=== PATIENT | female | born 1970 | race Caucasian/White ===

== ENCOUNTER 2017-04-15 09:27 | Outpatient (RCR) | payer OTHER, SELFPAY ==
--- NOTE | 2017-04-16 15:51 | HP.FCE ---
HP OT Functional Capacity Eval - Task Lift Floor (Occasional 1-33% of Day): 20# Floor (Frequent 34-66% of Day): 10# Floor (Constant 67-100% of Day): N/A Floor PDL: Light Knee (Occasional 1-33% of Day): 20# Knee (Frequent 34-66% of Day): 10# Knee (Constant 67-100% of Day): N/A Knee PDL: Light Waist (Occasional 1-33% of Day): 20# Waist (Frequent 34-66% of Day): 10# Waist (Constant 67-100% of Day): N/A Waist PDL: Light Shoulder (Occasional 1-33% of Day): 20# Shoulder (Frequent 34-66% of Day): 10# Shoulder (Constant 67-100% of Day): 0# Shoulder PDL: Light Overhead (Occasional 1-33% of Day): 15# Overhead (Frequent 34-66% of Day): 8# Overhead (Constant 67-100% of Day): N/A Overhead PDL: Sedentary-Light - Work Activity/Posture Bending: Occasional Ability (1-33% of day) Comments: low occasional ability with external support Squatting: Occasional Ability (1-33% of day) Comments: low occasional ability with external support Kneeling: No Ablility (0% of day) Reaching out: Frequent Ability (34-66% of day) Reaching up: Occasional Ability (1-33% of day) Sitting: Frequent Ability (34-66% of day) Walking: Occasional Ability (1-33% of day) Comments: low occasional ability Standing: Occasional Ability (1-33% of day) Comments: low occasional ability with external support - Reference Duration Sedentary Sedentary Light Light Light Medium Medium Medium Heavy Very Heavy Heavy Occasional (0-33% of day) Frequent (34-66% of day) Constant (67-100% of day) 10 # Negligible Negligible 15 # 8 # Negligible 20 # 10# Negli. 35 # 18 # 7 # 50 # 25 # 10 # 75 # 100 # >100 # 38 # 50 # >50 # 15 # 20 # >20 # - Patient Information Height: 1.63 m Weight:: 149.685 kg Hand Dominance: right - Medical History Medical History Including Restrictions: pt states she has smoked cigarettes since the age of 13 and currently smokes 1/2 a pack a day. Pt reports that in 1998 she had a partial hysterectomy and bladder tie up. Pt states in 2003 she had neck laminectomy surgery and in 2007 she had back surgery with plate placed. Unsure of what level. pt states has had right carpal tunnel surgery in 2009. Pt states she needs a left capal tunnel surger and left hip replacement. Pt states she can not have her hip sx until she can lose some weight. - Diagnoses Diagnoses: Asthma dx 1988. Migraines dx 1999. Spinal Stenosis dx 1999. Degenerative Disc Disease dx 1999. Severe Osteoarthritis dx 1999. Bone spurs dx 1999. High blood pressure dx 2004. High cholesterol dx 2004. Diabetic dx 2004. Fibromyalgia dx 2004. Sleep Apnea dx 2007. Neuropathy dx 2009. Acid reflux dx 2009. Gastritris dx 2011. Sciatic dx 2011. Rhinitis dx 2012. Eczema dx 2012. Arrhythmia dx 2014. Hypthyroid dx 2016. Ambilical hernia dx 2016. Pulmonary hypertension dx 2016. COPD dx 2016. Kidney failure dx 2016 - Symptoms Symptoms: Joint Pain. Bilateral hip pain. Nubness/tingling in legs, feet. Spasum. limited mobility. SOB - Pain Pain: Pt reports pain is 4/10 and with activity 8/10. Pt states she is currently 4/10 with taking her pain medication. 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 Job required standing, lifing and bending. Pt states she left this job due to pain and the inability to perform her job duties safely. - Behavioral Behavioral: pt was coorperative during the assessment. - ADLS ADLS: Pt states she lives with her , son future [id number] and future step granddaughter. Home is a one story with basement where pt resides with , son and his future family is on first floor. Pt states there are 11 steps with two rails up to the porch but no rails to step into the house. Pt states her son is remodeling bathroom with a walk-in shower with seat built into it and with future grab bars. Pt states she does have to climb the 15 steps to first floor to do laundry and cooking. Pt states she does go grocery shopping only if there is a electirc chair avalible. Pt drives independently. 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 pt states she does have adaptive equipment to use for toliting (toilet wipe aide), fabrication lead, bed side comode, elevated toilet seat, sock aide, long handleled shoe horn, spone and sock aid to assist her with bathing and dressing, pt has manual wheel chair, walker, quad cane. - Physical Examination ROM: pt demo with limited left hip flex, abd and ext. limited due to pain-. All other ROM WFL Strength: pt demo grossly throughout 4/5 UB and LB strength Right Roll Scale Man Strength Average: 63.33 Right Roll Scale Man Strength Percentile: 28% Left Roll Scale Man Strength Average: 50.00 Left Roll Scale Man Strength Percentile: 17% Right Lateral Pinch Average: 10.00 Right Lateral Pinch Percentile: 25% Left Lateral Pinch Average: 10.00 Left Lateral Pinch Percentile: 25% Right Tripod Pinch Average: 6.00 Right Tripod Pinch Percentile: <10% Left Tripod Pinch Average: 7.33 Left Tripod Pinch Percentile: 10% Sensation: bilateral sensation. 2.83 all digits- demonstrating sensation in hands/digits are WNL Fine Motor: 9-hole peg test. right 21.30 sec 25%. left 21.86 sec. 50% Balance: No loss of balance was noted during the assessment. - Non Material Handling Activities Bending: pt demo the ability to bend forward three times and then 5 times. pt required external support during this activity. pt repoted pain shooting from hip down to knee. pt reported pain 8/10. low occasional ability. Squatting: pt demo the ability to squat three times and then 5 times- she was unable to complete ten times or ten times rapidly. Pt did use external support on both sides for this tasks. pt reported bilateral knee pain increase from 4/10 to 7.5/10. low occasional ability Kneeling: No ability Reaching out/up: pt demo the ability to reach out three times, ten times and ten times rapidly while standing. frequent ability. pt demo the ability to reach up three times and then 7 times. pt reported low back pain increase from 4/10- 8/10. pt was unable to reach up ten times rapidly. low occasional ability Walking: pt ambulated 570 feet within our facility. pt abulated with use of a quad cane and antalgic gait pattern. pt can ambulate on a low occasional basis. Standing: Pt demo the ability to stand for 4 min. she did utilize external support for following 2 min. pt does stand off of left LE. pt can stand on a low occasional basis. Sitting: pt demo the ability to sit for 40 min with no expressed or apparent discomfort. pt can sit on a frequent basis. Climbing Stairs: pt ascended and descended 10 steps using both hand rails and would climb with right leg first and descend with left leg down. - Dynamic Occasional Lifting Capacity Floor Lift: pt demo the ability to lift 15# comfortably and 20# maximally. Knee Lift: pt demo the ability to lift 15# comfortably and 20# maximally. Waist Lift: pt demo the ability to lift 15# comfortably and 20# maximally. Shoulder Lift: pt demo the ability to lift 15# comfortably and 20# maximally. Overhead Lift: pt demo the ability to lift 15# comfortably and 15# maximally. Carrying: pt amb. with quad cane and was unable to carry with bilateral hands.
--- NOTE | 2017-04-16 16:00 | HP.OTFCE_ITS ---
HP OT Functional Capacity Eval - Task Lift Floor (Occasional 1-33% of Day): 20# Floor (Frequent 34-66% of Day): 10# Floor (Constant 67-100% of Day): N/A Floor PDL: Light Knee (Occasional 1-33% of Day): 20# Knee (Frequent 34-66% of Day): 10# Knee (Constant 67-100% of Day): N/A Knee PDL: Light Waist (Occasional 1-33% of Day): 20# Waist (Frequent 34-66% of Day): 10# Waist (Constant 67-100% of Day): N/A Waist PDL: Light Shoulder (Occasional 1-33% of Day): 20# Shoulder (Frequent 34-66% of Day): 10# Shoulder (Constant 67-100% of Day): 0# Shoulder PDL: Light Overhead (Occasional 1-33% of Day): 15# Overhead (Frequent 34-66% of Day): 8# Overhead (Constant 67-100% of Day): N/A Overhead PDL: Sedentary-Light - Work Activity/Posture Bending: Occasional Ability (1-33% of day) Comments: low occasional ability with external support Squatting: Occasional Ability (1-33% of day) Comments: low occasional ability with external support Kneeling: No Ablility (0% of day) Reaching out: Frequent Ability (34-66% of day) Reaching up: Occasional Ability (1-33% of day) Sitting: Frequent Ability (34-66% of day) Walking: Occasional Ability (1-33% of day) Comments: low occasional ability Standing: Occasional Ability (1-33% of day) Comments: low occasional ability with external support - Reference Duration Sedentary Sedentary Light Light Light Medium Medium Medium Heavy Very Heavy Heavy Occasional (0-33% of day) Frequent (34-66% of day) Constant (67-100% of day) 10 # Negligible Negligible 15 # 8 # Negligible 20 # 10# Negli. 35 # 18 # 7 # 50 # 25 # 10 # 75 # 100 # >100 # 38 # 50 # >50 # 15 # 20 # >20 # - Patient Information Height: 1.63 m Weight:: 149.685 kg Hand Dominance: right - Medical History Medical History Including Restrictions: pt states she has smoked cigarettes since the age of 13 and currently smokes 1/2 a pack a day. Pt reports that in 1998 she had a partial hysterectomy and bladder tie up. Pt states in 2003 she had neck laminectomy surgery and in 2007 she had back surgery with plate placed. Unsure of what level. pt states has had right carpal tunnel surgery in 2009. Pt states she needs a left capal tunnel surger and left hip replacement. Pt states she can not have her hip sx until she can lose some weight. - Diagnoses Diagnoses: Asthma dx 1988. Migraines dx 1999. Spinal Stenosis dx 1999. Degenerative Disc Disease dx 1999. Severe Osteoarthritis dx 1999. Bone spurs dx 1999. High blood pressure dx 2004. High cholesterol dx 2004. Diabetic dx 2004. Fibromyalgia dx 2004. Sleep Apnea dx 2007. Neuropathy dx 2009. Acid reflux dx 2009. Gastritris dx 2011. Sciatic dx 2011. Rhinitis dx 2012. Eczema dx 2012. Arrhythmia dx 2014. Hypthyroid dx 2016. Ambilical hernia dx 2016. Pulmonary hypertension dx 2016. COPD dx 2016. Kidney failure dx 2016 - Symptoms Symptoms: Joint Pain. Bilateral hip pain. Nubness/tingling in legs, feet. Spasum. limited mobility. SOB - Pain Pain: Pt reports pain is 4/10 and with activity 8/10. Pt states she is currently 4/10 with taking her pain medication. 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 Job required standing, lifing and bending. Pt states she left this job due to pain and the inability to perform her job duties safely. - Behavioral Behavioral: pt was coorperative during the assessment. - ADLS ADLS: Pt states she lives with her , son future [id number]-pc-kik and future step granddaughter. Home is a one story with basement where pt resides with , son and his future family is on first floor. Pt states there are 11 steps with two rails up to the porch but no rails to step into the house. Pt states her son is remodeling bathroom with a walk-in shower with seat built into it and with future grab bars. Pt states she does have to climb the 15 steps to first floor to do laundry and cooking. Pt states she does go grocery shopping only if there is a electirc chair avalible. Pt drives independently. 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 pt states she does have adaptive equipment to use for toliting (toilet wipe aide), leather sorter, bed side comode, elevated toilet seat , sock aide, long handleled shoe horn, spone and sock aid to assist her with bathing and dressing, pt has manual wheel chair, walker, quad cane. - Physical Examination ROM: pt demo with limited left hip flex, abd and ext. limited due to pain-. All other ROM WFL Strength: pt demo grossly throughout 4/5 UB and LB strength Right Electrical Equipment Assembler Strength Average: 63.33 Right Electrical Equipment Assembler Strength Percentile: 28% Left Electrical Equipment Assembler Strength Average: 50.00 Left Electrical Equipment Assembler Strength Percentile: 17% Right Lateral Pinch Average: 10.00 Right Lateral Pinch Percentile: 25% Left Lateral Pinch Average: 10.00 Left Lateral Pinch Percentile: 25% Right Tripod Pinch Average: 6.00 Right Tripod Pinch Percentile: <10% Left Tripod Pinch Average: 7.33 Left Tripod Pinch Percentile: 10% Sensation: bilateral sensation. 2.83 all digits- demonstrating sensation in hands/digits are WNL Fine Motor: 9-hole peg test. right 21.30 sec 25%. left 21.86 sec. 50% Balance: No loss of balance was noted during the assessment. - Non Material Handling Activities Bending: pt demo the ability to bend forward three times and then 5 times. pt required external support during this activity. pt repoted pain shooting from hip down to knee. pt reported pain 8/10. low occasional ability. Squatting: pt demo the ability to squat three times and then 5 times- she was unable to complete ten times or ten times rapidly. Pt did use external support on both sides for this tasks. pt reported bilateral knee pain increase from 4/ 10 to 7.5/10. low occasional ability Kneeling: No ability Reaching out/up: pt demo the ability to reach out three times, ten times and ten times rapidly while standing. frequent ability. pt demo the ability to reach up three times and then 7 times. pt reported low back pain increase from 4 /10- 8/10. pt was unable to reach up ten times rapidly. low occasional ability Walking: pt ambulated 570 feet within our facility. pt abulated with use of a quad cane and antalgic gait pattern. pt can ambulate on a low occasional basis. Standing: Pt demo the ability to stand for 4 min. she did utilize external support for following 2 min. pt does stand off of left LE. pt can stand on a low occasional basis. Sitting: pt demo the ability to sit for 40 min with no expressed or apparent discomfort. pt can sit on a frequent basis. Climbing Stairs: pt ascended and descended 10 steps using both hand rails and would climb with right leg first and descend with left leg down. - Dynamic Occasional Lifting Capacity Floor Lift: pt demo the ability to lift 15# comfortably and 20# maximally. Knee Lift: pt demo the ability to lift 15# comfortably and 20# maximally. Waist Lift: pt demo the ability to lift 15# comfortably and 20# maximally. Shoulder Lift: pt demo the ability to lift 15# comfortably and 20# maximally. Overhead Lift: pt demo the ability to lift 15# comfortably and 15# maximally. Carrying: pt amb. with quad cane and was unable to carry with bilateral hands.
== END 2017-04-15 19:00 | disposition home or self-care (01) ==
LOC: OT 09:27
PROVIDERS: Family Provider Internal Medicine; PCP Internal Medicine; Visit Provider Internal Medicine
DX: R53.81 Other malaise (principal)
CPT/HCPCS: 97750

== ENCOUNTER → 2017-06-03 10:51 | Outpatient (CLI) | payer OTHER, SELFPAY ==
[2017-06-03 12:15] LABS: Anion Gap 10 (5-15); BUN 16 mg/dL (7-18); BUN/Creat Ratio 16.5 RATIO (10-20); Calcium,Total 8.5 mg/dL (8.5-10.1); Chloride 107 mmol/L (98-107); Creatinine, Serum 0.97 mg/dL (0.55-1.02); EST Glomerular Filtration Rate 65 mL/min (>60); Est Glom Filt Rate - Afr Amer 79 mL/min (>60); Glucose 153 mg/dL (74-106); Potassium 3.6 mmol/L (3.5-5.1); Sodium Level 141 mmol/L (136-145)
== END ==
PROVIDERS: Family Provider Internal Medicine; PCP Internal Medicine; Visit Provider Internal Medicine Nephrology
DX: R80.9 Proteinuria, unspecified (principal)
CPT/HCPCS: 36415; 80048; 82043; 82570

== ENCOUNTER 2017-06-20 17:06 | Emergency (ER) | payer OTHER, SELFPAY ==
[2017-06-20 17:07] VITALS: BP 154/74; PULSE 111; RESP 18; TEMP 37.2; O2SAT 98; BMI 55.7
--- NOTE | 2017-06-20 18:39 | ED.VISSUMM ---
- ER Visit Summary Date of Service: 06/20/17 Chief Complaint: Diarrhea History of Present Illness: The patient is a 46 F 3 of irritable bowel syndrome and ugt-[id number]-[id number] diabetes along with renal insufficiency. Patient states that she has had diarrhea for a week. 10 or more episodes a day. Denies any blood or melena. She has had diarrhea before but she has had never like this. She denies any recent hospitalization. She has had no exposure to C. difficile nor she ever had that before. She denies any recent antibiotics or any recent travel. Physical Examination: Appearing middle-aged female. Vital signs are stable afebrile. She does not look septic or toxic. She is in no acute distress. H EENT exam dry mucous membranes otherwise unremarkable. Neck nontender lungs clear to auscultation bilaterally. Heart regular rhythm rate about 110 no murmur. Abdomen soft nontender nondistended no organomegaly or masses. Normal bowel sounds no peritoneal signs. Moving all 4 extremities. Neurovascularly intact. Neurologically she is awake alert without focal deficits. Test Results: CBC showed a white count 11.2 normal H&H. BMP had a significant hypokalemia 2.7. BUN and creatinine of 15 and 1.21. UA showed 50-100 white cells 5-10 epithelial cells 2+ bacteria positive nitrates the urine was cloudy on gross examination and will be sent for culture and treated as UTI. Patient has not had any bowel movement the entire time in the ER so no stool culture could be sent for C. difficile. If her diarrhea continues this will need to be done. Emergency Department Course and Treatment: We treated with IV fluids. Screening labs be obtained along with C. difficile. Treatment Plan: Repeat exam she is doing very well at 2155. She will be given IV potassium and oral potassium and discharged to home. She has potassium supplement at home. She will be started on antibiotic for urinary tract infection. Disposition: Discharge Impression: Acute diarrhea of uncertain etiology Acute hypokalemia UTI with urine culture pending This note was generated with [employer] dictation software. It may contain incorrect words, spelling, and punctuation that were not noted in review of the chart prior to signing ED Disposition - Plan for ED Patient: Chief Complaint: Diarrhea Referrals: Naomi Colunga DO [Primary Care Provider] -
[2017-06-20 18:47] LABS: Mucous, Urine 0 SEEN /hpf (<or=2+)
[2017-06-20 18:51] LABS: Absolute Lymphocyte Count 4.73 X10^3/ul (0.83-4.51); Absolute Neutrophil Count 5.2 X10^3/uL (2.0-7.7); Basophil# 0.13 X10^3/uL; Basophil% 1.2 % (0-1); Eosinophil# 0.29 X10^3/uL; Eosinophils% 2.6 % (0-5); Hematocrit 41.3 % (37-47); Hemoglobin 13.3 g/dl (12.0-15.0); Lymphocyte # 4.73 X10^3/ul (4.0); Lymphocyte % 42.2 % (19-41); Mean Corp Hgb Conc 32.2 g/gl (32-36); Mean Corpuscular Hgb 27.5 pg (27.0-32.0); Mean Corpuscular Volume 85.5 fL (81-99); Mean Platelet Vol. 10.6 fl (6.2-12.0); Monocyte# 0.82 X10^3/uL; Monocyte% 7.3 % (0-10); Neutrophil # 5.22 X10^3/uL (2.7-7.7); Neutrophil % 46.5 % (47-70); Platelet Count 294 K/mm3 (150-450); RBC Distribution Width CV 14.3 % (11.6-14.6); RBC Distribution Width SD 44.6 fl (35.1-43.9); Red Blood Count 4.83 M/mm3 (4.2-5.4); White Blood Count 11.2 K/mm3 (4.4-11.0)
[2017-06-20 18:52] LABS: Differential Indicated SCAN CRITERIA MET; POSITIVE COUNT NO; POSITIVE DIFFERENTIAL NO; POSITIVE MORPHOLOGY YES
[2017-06-20 19:00] LABS: Anion Gap 10 (5-15); BUN 15 mg/dL (7-18); BUN/Creat Ratio 12.4 RATIO (10-20); Calcium,Total 8.6 mg/dL (8.5-10.1); Chloride 110 mmol/L (98-107); Creatinine, Serum 1.21 mg/dL (0.55-1.02); EST Glomerular Filtration Rate 51 mL/min (>60); Est Glom Filt Rate - Afr Amer 61 mL/min (>60); Estimated Creatinine Clearance 49.63 ml/min; Glucose 115 mg/dL (74-106); Potassium 2.7 mmol/L (3.5-5.1); Sodium Level 142 mmol/L (136-145)
[2017-06-20 19:05] VITALS: BP 117/56; PULSE 101; RESP 18; O2SAT 95
[2017-06-20] MEDS: 0.9% Normal Saline 1,000 ML 1000 ML IV (19:05)
[2017-06-20 19:10] LABS: Differential Comment SCANNED
[2017-06-20 20:04] LABS: Color, Urine Yellow (Yellow); Glucose, Dipstick Normal (Normal); Ketone-Dipstick Negative (Negative); Leukocyte Esterase-Dipstick 500 /ul (Negative); Nitrite-Dipstick Positive (Negative); Occult Blood-Urine 150 /ul (Negative); Protein-Dipstick 100 mg/dl (Negative); Specific Gravity, Urine 1.015 (1.002-1.030); Urine Bilirubin Dipstick Negative (Negative); Urine Clarity Sl. Cloudy (Clear); Urine Urobilinogen Normal (Normal)
[2017-06-20 20:54] LABS: Bacteria 2+ /hpf (None Seen); Red Blood Cells-Urine 0-5 SEEN /hpf (0-5); Squamous Epithelial Cells - UA 5-10 SEEN /hpf (5-10); White Blood Cells 50-100 SEEN /hpf (0-5)
[2017-06-20 21:11] VITALS: BP 118/64; PULSE 105; RESP 18; O2SAT 98
--- NOTE | 2017-06-20 22:28 | ED.DEP ---
ED Disposition - Plan for ED Patient: Disposition: Home or Assisted Living Chief Complaint: Diarrhea Instructions: Treating Diarrhea Prescriptions: Cephalexin [Keflex] 500 mg PO Q6 #30 cap Referrals: Naomi Colunga DO [Primary Care Provider] - 3-5 Days Additional Instructions: Plenty of fluids and rest. 10 mEq of potassium daily and have your potassium level rechecked next week. If continued diarrhea you need to follow-up your primary care physician and have a stool culture sent to ensure this is in a bacterial diarrhea infection such as Clostridium difficile. Return to ER feeling worse. Also, your Urinalysis appears to be a urinary tract infection. A urine culture will be sent. He will be started on Keflex 1 pill 4 times a day for a week to treat his infection.
[2017-06-20 23:00] VITALS: PULSE 100; RESP 18; O2SAT 95
[2017-06-21 00:22] VITALS: BP 139/84; PULSE 102; PULSE 104; RESP 12; RESP 15; O2SAT 95
== END 2017-06-21 00:35 | disposition home or self-care (01) ==
PROVIDERS: Emergency Provider Emergency Medicine; Family Provider Internal Medicine; PCP Internal Medicine
DX: R19.7 Diarrhea, unspecified (principal); E87.6 Hypokalemia; N39.0 Urinary tract infection, site not specified; E11.9 Type 2 diabetes mellitus without complications; I10 Essential (primary) hypertension; K58.9 Irritable bowel syndrome, unspecified; N28.9 Disorder of kidney and ureter, unspecified; Z90.49 Acquired absence of other specified parts of digestive tract; Z90.710 Acquired absence of both cervix and uterus; Z79.82 Long term (current) use of aspirin; Z79.84 Long term (current) use of oral hypoglycemic drugs; Z79.899 Other long term (current) drug therapy; Z72.0 Tobacco use
CPT/HCPCS: 80048; 81001; 85025; 96361; 96365; 96366; 99283; J7030; J7050; A4216

== ENCOUNTER 2017-07-07 08:53 | Day surgery (SDC) | payer OTHER, SELFPAY ==
[2017-07-07 09:20] VITALS: BP 145/86; PULSE 100; RESP 20; TEMP 36.6; O2SAT 99; BMI 57.3
[2017-07-07 09:41] LABS: Bedside Glucose 133 mg/dL (70-110)
--- NOTE | 2017-07-07 10:23 | RAD_ITS ---
CLINICAL HISTORY: Female, 47 years old. Lower back pain PROCEDURE: EPIDUROGRAM - Caudal block FLUOROSCOPY TIME (if supplied): (0:27) minutes. 2 Images. RADIATION DOSAGE (If Supplied By Facility): CTDIvol = ( ) mGy, DLP = ( ) mGycm TECHNIQUE: Successful lumbar epidural steroid injection under fluoroscopic guidance. RAD/Fluor Guidance for Spine Inj IMPRESSION: Successful lumbar epidural steroid injection under fluoroscopic guidance. Electronically Signed: Fabrizio Meade MD at 7:19 EDT Tel , Service support ,
[2017-07-07] MEDS: Bupivacaine 0.25% 30 ML Vial (10:34)
[2017-07-07] MEDS: MethylPREDNISolone Acetate 80 MG/ML Vial (10:35)
--- NOTE | 2017-07-07 10:37 | SUR.OPER ---
ISOVUE 200 -3ML & ISOVUE 300 -3ML USED FOR PROCEDURE -TB
[2017-07-07 10:44] VITALS: BP 135/64; BP 145/86; PULSE 115; RESP 16; TEMP 36.4; O2SAT 96
[2017-07-07 10:50] VITALS: BP 130/76; BP 145/86; PULSE 105; RESP 16; O2SAT 96
[2017-07-07 10:55] VITALS: BP 131/88; BP 145/86; PULSE 100; RESP 14; O2SAT 100
[2017-07-07 11:00] VITALS: BP 132/82; BP 145/86; PULSE 98; RESP 16; TEMP 36.2; O2SAT 96
--- NOTE | 2017-07-07 11:26 | OP.PCM_ITS ---
Problem List (1) DDD (degenerative disc disease), lumbosacral Status: Chronic (2) Radiculopathy of lumbosacral region Status: Chronic Report of Operation Date of Procedure: 07/07/17 Pre-Operative Diagnosis: Lumbosacral radiculopathy, lumbosacral degenerative disc disease, lumbosacral spinal stenosis Post-Operative Diagnosis: Lumbosacral radiculopathy, lumbosacral degenerative disc disease, lumbosacral spinal stenosis Surgery/Procedure Performed:: Caudal epidural steroid injection Description of Surgical Findings:: PROCEDURE: Caudal epidural steroid injection PREOPERATIVE DIAGNOSIS: Lumbosacral radiculopathy, lumbosacral degenerative disc disease, lumbosacral spinal stenosis POSTOPERATIVE DIAGNOSIS: Lumbosacral radiculopathy, lumbosacral degenerative disc disease, lumbosacral spinal stenosis ANESTHESIA: MAC COMPLICATIONS: None BLOOD LOSS: Minimal PROCEDURE IN DETAIL: History and physical today was reviewed. Risks and benefits of the procedure were explained. The patient understood, agreed to our procedure, and informed consent was obtained. IV inserted per routine protocol. The patient was taken to the operating room, placed in a prone position with a pillow positioned underneath the abdomen. Under direct physician fluoroscopy on the lateral view the caudal space was identified the skin and subcutaneous tissue were anesthetized approximately 3 cc of 1% lidocaine using a 25-gauge regular needle under direct visualization with fluoroscopy on the lateral view using a 22- gauge 3-1/2 inch spinal needle the needle was advanced via the skin through the sacral hiatus tip of the needle passed through the sacrococcygeal ligament advanced approximately S4 area after negative aspiration for blood or CSF a total of 3 cc of contrast were injected to confirm correct placement of the needle as well as cephalad spread the spread was followed to approximately L5 area after confirmation AP as well as lateral view and repeated negative aspiration a total of 15 cc of preservative-free 0.125% Marcaine with 80 mg of Depo-Medrol were injected easily. The needles were then removed intact.The patient experienced no signs or symptoms intrathecal, intravascular injection. The patient experienced no paraesthesia. The procedure was completed without any apparent difficult, any complication. The patient appeared to tolerate well. ASSESSMENT AND PLAN: This is a 47-year-old female with lumbosacral radiculopathy, lumbosacral degenerative disc disease, lumbosacral spinal stenosis status post caudal epidural steroid injection. The patient will continue his current medications. The patient will follow in approximately 2 weeks for possible repeat of the procedure if indicated.
[2017-07-07 11:38] VITALS: BP 145/86
== END 2017-07-07 11:39 | disposition home or self-care (01) ==
LOC: SDC 08:53 → AC 08:55
PROVIDERS: Family Provider Internal Medicine; PCP Internal Medicine; Visit Provider Anesthesiology Pain Medicine
PROC: 3E0S3BZ Introduction of Anesthetic Agent into Epidural Space, Percutaneous Approach (ICD-10-PCS; CPT 62282; principal; 2017-07-07 10:45)
DX: M51.17 Intervertebral disc disorders with radiculopathy, lumbosacral region (principal); M48.07 Spinal stenosis, lumbosacral region; K58.9 Irritable bowel syndrome, unspecified; E78.00 Pure hypercholesterolemia, unspecified; K21.9 Gastro-esophageal reflux disease without esophagitis; K44.9 Diaphragmatic hernia without obstruction or gangrene; Z79.899 Other long term (current) drug therapy; Z79.82 Long term (current) use of aspirin; J45.909 Unspecified asthma, uncomplicated; G25.81 Restless legs syndrome; I25.10 Atherosclerotic heart disease of native coronary artery without angina pectoris; M79.7 Fibromyalgia; G47.33 Obstructive sleep apnea (adult) (pediatric); I12.9 Hypertensive chronic kidney disease with stage 1 through stage 4 chronic kidney disease, or unspecified chronic kidney disease; N18.9 Chronic kidney disease, unspecified; M19.90 Unspecified osteoarthritis, unspecified site; F17.210 Nicotine dependence, cigarettes, uncomplicated; Z79.891 Long term (current) use of opiate analgesic; E66.9 Obesity, unspecified; Z71.3 Dietary counseling and surveillance; Z68.43 Body mass index [BMI] 50.0-59.9, adult
CPT/HCPCS: 62323; 64483; 77003; 82962; J7120

== ENCOUNTER → 2017-09-24 16:20 | Outpatient (CLI) | payer OTHER, SELFPAY ==
[2017-09-24 18:25] LABS: ALB/GLOB Ratio 0.6 RATIO (0.9-2.4); AST(SGOT) 33 U/L (15-37); Alanine Aminotransfer ALT/SGPT 42 U/L (13-56); Albumin, Serum 2.9 g/dL (3.2-5.0); Alkaline Phosphatase 78 U/L (45-117); Anion Gap 9 (5-15); BUN 16 mg/dL (7-18); BUN/Creat Ratio 14.3 RATIO (10-20); Calcium,Total 8.7 mg/dL (8.5-10.1); Chloride 107 mmol/L (98-107); Creatinine, Serum 1.12 mg/dL (0.55-1.02); EST Glomerular Filtration Rate 55 mL/min (>60); Est Glom Filt Rate - Afr Amer 67 mL/min (>60); Globulin 4.8 g/dL (2.2-4.2); Glucose 146 mg/dL (74-106); Potassium 3.6 mmol/L (3.5-5.1); Protein, Total 7.7 g/dL (6.4-8.2); Sodium Level 142 mmol/L (136-145)
== END ==
PROVIDERS: Family Provider Internal Medicine; PCP Internal Medicine; Visit Provider Internal Medicine
DX: L29.9 Pruritus, unspecified (principal)
CPT/HCPCS: 36415; 80053

== ENCOUNTER → 2017-09-26 11:29 | Outpatient (CLI) | payer OTHER, SELFPAY ==
[2017-09-26 12:36] LABS: Hemoglobin 13.2 g/dl (12.0-15.0); Mean Corp Hgb Conc 32.2 g/gl (32-36); Mean Corpuscular Hgb 27.8 pg (27.0-32.0); Mean Corpuscular Volume 86.5 fL (81-99); Mean Platelet Vol. 10.3 fl (6.2-12.0); Platelet Count 258 K/mm3 (150-450); RBC Distribution Width CV 15.2 % (11.6-14.6); RBC Distribution Width SD 48.3 fl (35.1-43.9); Red Blood Count 4.74 M/mm3 (4.2-5.4); Scan Indicated on CBC? Y/N NO; White Blood Count 7.7 K/mm3 (4.4-11.0)
[2017-09-26 13:00] LABS: Vitamin D,25 Hydroxy 38.5 ng/mL (29.95-100.01)
[2017-09-26 13:03] LABS: Protein, Urine (Random) 318.3 mg/dL (<11.9); Protein:Creat Ratio 2487 mg/g CRE (0-200)
[2017-09-26 13:05] LABS: Albumin, Serum 2.8 g/dL (3.2-5.0); BUN 14 mg/dL (7-18); BUN/Creat Ratio 13.1 RATIO (10-20); Calcium,Total 8.9 mg/dL (8.5-10.1); Chloride 108 mmol/L (98-107); Creatinine, Serum 1.07 mg/dL (0.55-1.02); EST Glomerular Filtration Rate 58 mL/min (>60); Est Glom Filt Rate - Afr Amer 70 mL/min (>60); Glucose 130 mg/dL (74-106); Phosphorus 3.5 mg/dL (2.5-4.9); Potassium 3.9 mmol/L (3.5-5.1); Sodium Level 139 mmol/L (136-145)
[2017-09-26 13:09] LABS: PTHIN 32.3 pg/mL (18.4-80.1)
== END ==
PROVIDERS: Family Provider Internal Medicine; PCP Internal Medicine; Visit Provider Internal Medicine Nephrology
DX: E55.9 Vitamin D deficiency, unspecified (principal); R80.9 Proteinuria, unspecified; N04.9 Nephrotic syndrome with unspecified morphologic changes; R31.9 Hematuria, unspecified
CPT/HCPCS: 36415; 80069; 82306; 82570; 83970; 84156; 85027

== ENCOUNTER → 2017-10-03 09:41 | Outpatient (CLI) | payer OTHER, SELFPAY ==
[2017-10-03 10:55] VITALS: PULSE 102; PULSE 103; PULSE 108; PULSE 112; PULSE 135; PULSE 137; PULSE 93; PULSE 98; O2SAT 95; O2SAT 97; O2SAT 98
--- NOTE | 2017-10-03 13:22 | WT_ITS ---
PSN 6 Minute Walk Test - 6 Minute Walk Test 6 Minute Walk Test: 6 Minute Walk Test PSN:6-Minute Walk Test Start: 10/03/17 11: 21 Freq: Status: Active Protocol: [id number].6MINW Document 10/03/17 10:55 [facility] [place] (Rec: 10/03/17 11:24 [facility] [place] [id number]) 6 Minute Walk Test Date Performed 10/03/17 Time Performed 10:55 Height 5 ft 4 in Weight: 151.953 kg Weight in Pounds 335.[address]: [place]ia Brenner Assistive device used: Cane Pre-test Oxygen Delivery Method Room Air Pulse Ox (%) 98 Pulse Rate (60-100 beats/min) 98 Dyspnea Daniel Scale (0-10) 0 Exertion Daniel Scale (6-20) 6 1st minute Oxygen Delivery Method Room Air Pulse Ox (%) 95 Pulse Rate (60-100 beats/min) 108 H Number of Rests Taken 0 2nd minute Oxygen Delivery Method Room Air Pulse Ox (%) 97 Pulse Rate (60-100 beats/min) 112 H Number of Rests Taken 0 3rd minute Oxygen Delivery Method Room Air Pulse Ox (%) 97 Pulse Rate (60-100 beats/min) 93 Number of Rests Taken 1 4th minute Oxygen Delivery Method Room Air Pulse Ox (%) 97 Pulse Rate (60-100 beats/min) 103 H Number of Rests Taken 0 5th minute Oxygen Delivery Method Room Air Pulse Ox (%) 95 Pulse Rate (60-100 beats/min) 135 H Number of Rests Taken 1 6th minute Oxygen Delivery Method Room Air Pulse Ox (%) 98 Pulse Rate (60-100 beats/min) 137 H Number of Rests Taken 1 Post-test Oxygen Delivery Method Room Air Pulse Ox (%) 98 Pulse Rate (60-100 beats/min) 102 H Dyspnea Daniel Scale (0-10) 4 Exertion Daniel Scale (6-20) 12 Full Laps Walked 8 Partial Lap, Number of Tiles Walked 34 Total Distance Walked (ft) 506 - Interpretation Interpretation: The patient was able to ambulate only 506 feet over the course of 6 minutes on room air with the assistance of a cane. The patient did require 3 breaks to complete the 6 minute walk. No significant desaturation was noted, but patient did have persistent tachycardia with a peak heart rate of 137 bpm. These findings are consistent with a cardiovascular and musculoskeletal limitation exercise tolerance. - Recommendations Recommendations: No supplemental oxygen is indicated at this time.
== END ==
PROVIDERS: Family Provider Internal Medicine; PCP Internal Medicine; Visit Provider Nurse Practitioner Acute Care
DX: J44.1 Chronic obstructive pulmonary disease with (acute) exacerbation (principal)
CPT/HCPCS: 94618

== ENCOUNTER → 2017-10-10 12:47 | Outpatient (CLI) | payer OTHER, SELFPAY | PROVIDERS: Family Provider Internal Medicine; PCP Internal Medicine; Visit Provider Internal Medicine Nephrology | DX: N39.0 Urinary tract infection, site not specified (principal) | CPT/HCPCS: 87077; 87086; 87088; 87186 ==

== ENCOUNTER 2017-10-20 09:49 | Emergency (ER) | payer OTHER, SELFPAY ==
[2017-10-20 09:50] VITALS: BP 104/45; PULSE 107; RESP 16; TEMP 36.6; O2SAT 97; BMI 58.0
--- NOTE | 2017-10-20 10:06 | CT_ITS ---
STUDY: CT ABDOMEN AND PELVIS WITH CONTRAST REASON FOR EXAM: Female, 47 years old. Nausea and chills. No bowel movements for 8 days. RADIATION DOSAGE (If Supplied By Facility): CTDIvol = ( 21.87 ) mGy, DLP = ( 1722.09 ) mGycm TECHNIQUE: Transaxial images were obtained from the dome of the diaphragm to the symphysis pubis with oral contrast. 100 ml of Isovue 300 contrast was administered. Sagittal and coronal images were reconstructed. Individualized dose optimization techniques were used for this CT. COMPARISON: Comparison is made with prior study dated November 06, 2016. FINDINGS: The visualized lung bases are unremarkable. The visualized portions of the heart are within normal limits. There is decreased attenuation of the liver consistent with steatosis. Hepatomegaly. There are surgical clips in the gallbladder fossa consistent with a prior cholecystectomy. Normal spleen. Normal pancreas. Normal bilateral adrenal glands. Normal right kidney. Normal left kidney. There is a small hiatal hernia. Normal small intestine. Normal colon. There is non-visualization of the appendix. Normal abdominal aorta. Normal inferior vena cava. Normal retroperitoneum. Normal urinary bladder. There is absence of the uterus consistent with a prior hysterectomy. Tiny air bubble in the right pararectal space. This is the site of prior incision and drainage of a right perirectal abscess. There is a small umbilical hernia containing fat. Small bilateral inguinal lymph nodes. Prior laminectomy and fusion at the L5-S1 level with disc space narrowing. CT/Abdomen/Pelvis WITH Contrast IMPRESSION: Hepatomegaly and fatty infiltration of the liver. Tiny air bubble in the right pararectal space most likely secondary to remote incision and drainage of the perirectal abscess. Electronically Signed: Matt Beckwith MD at 13:14 EDT Tel [phone], Service support ,
--- NOTE | 2017-10-20 10:09 | ED.VISSUMM ---
- ER Visit Summary Date of Service: 10/20/17 Chief Complaint: Abdominal pain History of Present Illness: The patient is a 47 F presenting with abdominal pain. She states that she has had constipation and has been unable to have a bowel movement for the past 8 days. She has nausea without vomiting. She was seen by her primary care physician who was concerned about possibility of left inguinal hernia. She was referred to Dr. Parr. Physical Examination: Vitals are stable. Patient is afebrile. Alert no acute distress. HEENT exam is unremarkable. Neck is supple. Lungs are clear and equal bilaterally. Heart is regular rate and rhythm. Abdomen is soft obese, tenderness in the left lower quadrant, no rebound or guarding Extremities are unremarkable. Skin is warm and dry. No focal neurologic deficit. Remainder of exam is unremarkable. Emergency Department Course and Treatment: Patient is given IV Zofran, morphine. CBC, chemistries unremarkable other than creatinine 1.42. Urinalysis unremarkable. CT abdomen pelvis with IV and oral contrast was obtained and shows hepatomegaly and fatty infiltration of the liver. Tiny air bubble in the right pararectal space most likely secondary to remote incision and drainage of the perirectal abscess. Findings were discussed with Dr. Eng who performed her perirectal abscess drainage. She will be treated for constipation and will follow-up in her office. Advised return to ED for worsening complaints. Disposition: Discharge home Impression: Abdominal pain, constipation This note was generated with [employer] dictation software. It may contain incorrect words, spelling, and punctuation that were not noted in review of the chart prior to signing ED Disposition - Plan for ED Patient: Chief Complaint: Abd Pain Referrals: Naomi Colunga DO [Primary Care Provider] -
[2017-10-20 10:28] LABS: Absolute Lymphocyte Count 2.39 X10^3/ul (0.83-4.51); Absolute Neutrophil Count 3.9 X10^3/uL (2.0-7.7); Basophil# 0.04 X10^3/uL; Basophil% 0.6 % (0-1); Eosinophils% 2.9 % (0-5); Hematocrit 39.2 % (37-47); Hemoglobin 12.4 g/dl (12.0-15.0); Lymphocyte # 2.39 X10^3/ul (4.0); Lymphocyte % 34.4 % (19-41); Mean Corp Hgb Conc 31.6 g/gl (32-36); Mean Corpuscular Hgb 27.3 pg (27.0-32.0); Mean Corpuscular Volume 86.2 fL (81-99); Monocyte# 0.41 X10^3/uL; Monocyte% 5.9 % (0-10); Neutrophil % 56.1 % (47-70); Platelet Count 245 K/mm3 (150-450); RBC Distribution Width CV 14.9 % (11.6-14.6); RBC Distribution Width SD 46.6 fl (35.1-43.9); Red Blood Count 4.55 M/mm3 (4.2-5.4)
[2017-10-20] MEDS: Ondansetron 4 MG/2 ML Vial IV (10:33)
[2017-10-20 10:35] LABS: POSITIVE COUNT NO; POSITIVE DIFFERENTIAL NO; POSITIVE MORPHOLOGY NO
[2017-10-20 10:43] LABS: ALB/GLOB Ratio 0.7 RATIO (0.9-2.4); AST(SGOT) 32 U/L (15-37); Alanine Aminotransfer ALT/SGPT 42 U/L (13-56); Alkaline Phosphatase 77 U/L (45-117); Anion Gap 10 (5-15); BUN 17 mg/dL (7-18); Calcium,Total 8.7 mg/dL (8.5-10.1); Chloride 104 mmol/L (98-107); Creatinine, Serum 1.42 mg/dL (0.55-1.02); EST Glomerular Filtration Rate 42 mL/min (>60); Est Glom Filt Rate - Afr Amer 51 mL/min (>60); Estimated Creatinine Clearance 41.84 ml/min; Globulin 4.4 g/dL (2.2-4.2); Glucose 161 mg/dL (74-106); Potassium 3.4 mmol/L (3.5-5.1); Protein, Total 7.4 g/dL (6.4-8.2); Sodium Level 139 mmol/L (136-145)
[2017-10-20 11:26] LABS: Mucous, Urine 0 SEEN /hpf (<or=2+)
[2017-10-20 11:29] LABS: Glucose, Dipstick Normal (Normal); Ketone-Dipstick Negative (Negative); Leukocyte Esterase-Dipstick Negative /ul (Negative); Nitrite-Dipstick Negative (Negative); Occult Blood-Urine 10 /ul (Negative); Protein-Dipstick 100 mg/dl (Negative); Urine Bilirubin Dipstick Negative (Negative); Urine Urobilinogen Normal (Normal); Urine pH 6.5 (5.0 - 8.0)
[2017-10-20 11:31] LABS: Color, Urine Yellow (Yellow); Urine Clarity Clear (Clear)
[2017-10-20 11:47] LABS: Red Blood Cells-Urine 0 SEEN /hpf (0-5); Squamous Epithelial Cells - UA 0-5 SEEN /hpf (5-10); White Blood Cells 0-5 SEEN /hpf (0-5)
[2017-10-20 11:48] LABS: Bacteria RARE /hpf (None Seen)
[2017-10-20] MEDS: morphine 8 MG/ML Syringe IV (12:33)
--- NOTE | 2017-10-20 14:09 | ED.DEP ---
ED Disposition - Plan for ED Patient: Chief Complaint: Abd Pain Instructions: ED Constipation Referrals: Naomi Colunga DO [Primary Care Provider] - Edmundo Parr MD [STAFF PHYSICIAN] - Kerrie Eng MD [STAFF PHYSICIAN] -
[2017-10-20 14:15] VITALS: BP 110/58; PULSE 60; RESP 18; O2SAT 96
[2017-10-20] MEDS: Magnesium Citrate 300 ML PO (14:20)
== END 2017-10-20 14:21 | disposition home or self-care (01) ==
PROVIDERS: Emergency Provider Emergency Medicine; Family Provider Internal Medicine; PCP Internal Medicine
DX: R10.32 Left lower quadrant pain (principal); K59.00 Constipation, unspecified; K76.0 Fatty (change of) liver, not elsewhere classified; J45.909 Unspecified asthma, uncomplicated; K21.9 Gastro-esophageal reflux disease without esophagitis; E11.9 Type 2 diabetes mellitus without complications; G43.909 Migraine, unspecified, not intractable, without status migrainosus; E03.9 Hypothyroidism, unspecified; M19.90 Unspecified osteoarthritis, unspecified site; I27.20 Pulmonary hypertension, unspecified; Z79.82 Long term (current) use of aspirin; Z79.84 Long term (current) use of oral hypoglycemic drugs; Z79.899 Other long term (current) drug therapy
CPT/HCPCS: 74177; 80053; 81001; 85025; 96374; 96375; 99283; Q9967; A4216

== ENCOUNTER → 2017-11-12 13:02 | Outpatient (CLI) | payer OTHER, SELFPAY ==
[2017-11-12 14:00] LABS: Hematocrit 39.5 % (37-47); Hemoglobin 12.3 g/dl (12.0-15.0); Mean Corp Hgb Conc 31.1 g/gl (32-36); Mean Corpuscular Hgb 27.7 pg (27.0-32.0); Mean Platelet Vol. 10.1 fl (6.2-12.0); Platelet Count 240 K/mm3 (150-450); RBC Distribution Width SD 48.1 fl (35.1-43.9); Red Blood Count 4.44 M/mm3 (4.2-5.4); White Blood Count 8.1 K/mm3 (4.4-11.0)
[2017-11-12 14:05] LABS: Scan Indicated on CBC? Y/N NO
[2017-11-12 14:06] LABS: Protein, Urine (Random) 133.6 mg/dL (<11.9); Protein:Creat Ratio 1973 mg/g CRE (0-200)
[2017-11-12 14:14] LABS: BUN 20 mg/dL (7-18); BUN/Creat Ratio 18.5 RATIO (10-20); Calcium,Total 8.8 mg/dL (8.5-10.1); Chloride 107 mmol/L (98-107); Creatinine, Serum 1.08 mg/dL (0.55-1.02); EST Glomerular Filtration Rate 58 mL/min (>60); Est Glom Filt Rate - Afr Amer 70 mL/min (>60); Glucose 175 mg/dL (74-106); Potassium 3.9 mmol/L (3.5-5.1); Sodium Level 140 mmol/L (136-145)
[2017-11-12 14:21] LABS: PTHIN 22.2 pg/mL (18.4-80.1); Vitamin D,25 Hydroxy 42.2 ng/mL (29.95-100.01)
[2017-11-12 14:23] LABS: Hemoglobin A1c 6.4 % (4.2-6.3)
== END ==
PROVIDERS: Family Provider Internal Medicine Nephrology; PCP Internal Medicine; Visit Provider Internal Medicine Nephrology
DX: E11.21 Type 2 diabetes mellitus with diabetic nephropathy (principal); E55.9 Vitamin D deficiency, unspecified; R80.9 Proteinuria, unspecified; R31.9 Hematuria, unspecified; N04.9 Nephrotic syndrome with unspecified morphologic changes
CPT/HCPCS: 36415; 80069; 82306; 82570; 83036; 83970; 84156; 85027

== ENCOUNTER → 2017-12-02 12:36 | Outpatient (CLI) | payer OTHER, SELFPAY ==
[2017-12-02 13:24] LABS: Hematocrit 41.9 % (37-47); Hemoglobin 13.1 g/dl (12.0-15.0); Mean Corp Hgb Conc 31.3 g/gl (32-36); Mean Corpuscular Hgb 27.6 pg (27.0-32.0); Mean Corpuscular Volume 88.4 fL (81-99); Mean Platelet Vol. 10.5 fl (6.2-12.0); Platelet Count 315 K/mm3 (150-450); RBC Distribution Width CV 14.3 % (11.6-14.6); RBC Distribution Width SD 46.3 fl (35.1-43.9); Red Blood Count 4.74 M/mm3 (4.2-5.4); Scan Indicated on CBC? Y/N NO
[2017-12-02 13:35] LABS: Protein, Urine (Random) 193.2 mg/dL (<11.9); Protein:Creat Ratio 2991 mg/g CRE (0-200)
[2017-12-02 13:52] LABS: Albumin, Serum 3.1 g/dL (3.2-5.0); BUN 13 mg/dL (7-18); BUN/Creat Ratio 12.6 RATIO (10-20); Chloride 104 mmol/L (98-107); Creatinine, Serum 1.03 mg/dL (0.55-1.02); EST Glomerular Filtration Rate 61 mL/min (>60); Est Glom Filt Rate - Afr Amer 73 mL/min (>60); Glucose 150 mg/dL (74-106); Phosphorus 3.2 mg/dL (2.5-4.9); Sodium Level 138 mmol/L (136-145)
[2017-12-03 09:49] LABS: PTHIN 38.7 pg/mL (18.4-80.1)
[2017-12-03 09:57] LABS: Vitamin D,25 Hydroxy 36.6 ng/mL (29.95-100.01)
== END ==
PROVIDERS: Family Provider Internal Medicine; PCP Internal Medicine; Visit Provider Internal Medicine Nephrology
DX: E55.9 Vitamin D deficiency, unspecified (principal); R80.9 Proteinuria, unspecified; N04.9 Nephrotic syndrome with unspecified morphologic changes; R31.9 Hematuria, unspecified
CPT/HCPCS: 36415; 80069; 82306; 82570; 83970; 84156; 85027

== ENCOUNTER 2017-12-05 06:09 | Emergency (ER) | payer OTHER, SELFPAY ==
[2017-12-05 06:09] VITALS: BP 161/107; PULSE 115; RESP 18; TEMP 36.7; O2SAT 97; BMI 58.3
--- NOTE | 2017-12-05 06:51 | ED.VISSUMM ---
- ER Visit Summary Date of Service: 12/05/17 Chief Complaint: Back pain History of Present Illness: The patient is a 47 F history of chronic lower back pain left hip pain for years. no new injuries. She sees pain management Dr. Almodovar. Has had injections in the past. She is on [place] 1-2 tabs at night. History of renal insufficiency per patient. Ambulates with a cane. Physical Examination: General: Alert and oriented ?3, no acute distress HEENT: Normocephalic, atraumatic. Moist mucosa membranes Neck: supple, nontender. Cardiovascular: Regular rate and rhythm, no murmurs Respiratory: Normal breath sounds, symmetric, no distress Back: Tender palpation Lumbar left. Straight leg test negative. Negative logroll left hip. Abdomen: Soft, nontender, nondistended Extremities: Nontender, no edema, pulses intact ?4 Neuro: no focal neurological deficits. Test Results: [] Emergency Department Course and Treatment: Patient with chronic symptoms. Denies any cauda equina symptoms. Patient sees pain management. Discussed subcu opiate injection of Dilaudid. Prior to discharge had itching, p.o. Benadryl was given. She will follow-up with her pain physicians for reevaluation. Treatment Plan: [] Disposition: Discharge Impression: 1. Chronic back pain 2. Chronic left hip pain This note was generated with [employer] dictation software. It may contain incorrect words, spelling, and punctuation that were not noted in review of the chart prior to signing ED Disposition - Plan for ED Patient: Disposition: Home or Assisted Living Chief Complaint: Back Diagnosis: Chronic back pain, Chronic left hip pain Instructions: ED Chronic Pain Management Referrals: Naomi Colunga DO [Primary Care Provider] - Keith Almodovar [NON-STAFF] -
[2017-12-05] MEDS: HYDROmorphone 1 MG/ML Syringe SC (07:06)
[2017-12-05] MEDS: DiphenhydrAMINE 25 MG Capsule 50 MG PO (08:10)
== END 2017-12-05 08:12 | disposition home or self-care (01) ==
PROVIDERS: Emergency Provider Emergency Medicine; Family Provider Internal Medicine; PCP Internal Medicine
DX: M54.5 Low back pain (principal); M25.552 Pain in left hip; G89.29 Other chronic pain; E11.9 Type 2 diabetes mellitus without complications; I10 Essential (primary) hypertension; G47.33 Obstructive sleep apnea (adult) (pediatric); Z79.82 Long term (current) use of aspirin; Z79.84 Long term (current) use of oral hypoglycemic drugs; Z79.899 Other long term (current) drug therapy; Z72.0 Tobacco use
CPT/HCPCS: 96372; 99283

== ENCOUNTER → 2018-01-01 10:39 | Outpatient (CLI) | payer OTHER, SELFPAY ==
--- NOTE | 2018-01-02 06:09 | PFTCOMP_ITS ---
COMPLETE PULMONARY FUNCTION TEST INTERPRETATION Brief HPI: Patient is a 47 year old female, currently under the care of [place] Brenner, who presents to [facility] for complete pulmonary function tests secondary to diagnosis of dyspnea. Respiratory therapist reports good effort and reproducible results. Interpretation: Forced expiration spirometry shows a moderate large airways obstructive ventilatory defect with an FEV1 of 64% predicted. There is no significant bronchodilator response by ATS criteria. Spirograms are of good quality and plateau slowly, indicating slowly emptying areas of the lungs. The respiratory flow volume loop shows decreased expiratory flow rates at all lung volumes consistent with airway obstruction. Lung volumes by body plethysmography show a normal total lung capacity at 4.62 L, 93% predicted. All other lung volumes are within normal limits. Diffusion capacity by carbon monoxide is decreased at 67% predicted. The airway resistance is normal. Compared to previous pulmonary function tests from 10/17/2016, there has been a significant reduction in FVC, FEV1 and TLC by 17%, 20% and 14% respectively. Impression: Irreversible moderate large airways obstructive ventilatory defect with a symmetric reduction diffusing capacity consistent with COPD. Patient has had significant worsening compared to study in 2017.
== END ==
PROVIDERS: Family Provider Internal Medicine; PCP Internal Medicine; Visit Provider Nurse Practitioner Acute Care
DX: R06.09 Other forms of dyspnea (principal)
CPT/HCPCS: 94060; 94726; 94729

== ENCOUNTER → 2018-04-16 10:22 | Outpatient (CLI) | payer OTHER, SELFPAY ==
[2018-02-05 12:54] VITALS: BMI 59.3
--- NOTE | 2018-04-16 10:27 | RAD_ITS ---
STUDY: X-RAY CHEST REASON FOR EXAM: Female, 47 years old. Drug cough, 3 weeks. TECHNIQUE: COMPARISON: None. FINDINGS: Mildly increased airspace opacities infrahilar, suggesting the possibility of a lower lobe posterior segmental infiltrate or bronchial wall thickening, subsegmental, best seen in the lateral view. Not apparent in the frontal view. No other dense focal infiltrate. No effusion or pneumothorax. Mild cardiomegaly. Normal mediastinal silhouette, lesli and pleural margins. No acute osseous or upper abdominal process. RAD/Chest PA and Lateral IMPRESSION: Bandlike opacity projecting from the inferior hilum posterior segment lower lobe, slightly overlapping the inferior vertebral bodies. Seen in the lateral view only. Suspected subsegmental infiltrate. Difficult to discern if this is on the right or the left. Electronically Signed: Edmundo Carrasco MD at 11:01 EST Tel , Service support ,
== END ==
PROVIDERS: Family Provider Internal Medicine; PCP Internal Medicine; Referring Provider Internal Medicine; Visit Provider Internal Medicine
DX: R05 Cough (principal)
CPT/HCPCS: 71046

== ENCOUNTER 2018-04-22 10:28 | Outpatient (RCR) | payer OTHER, SELFPAY ==
[2018-04-22 10:57] VITALS: BP 143/90; PULSE 123; RESP 18; BMI 60.4
--- NOTE | 2018-04-22 12:14 | HP.PCM_ITS ---
(1) Ulcer of left lower extremity with fat layer exposed Status: Chronic Current Visit: Yes Code(s): L97.922 - Non-pressure chronic ulcer of unspecified part of left lower leg with fat layer exposed (2) Type 2 diabetes mellitus Status: Chronic Current Visit: Yes Code(s): E11.9 - Type 2 diabetes mellitus without complications (3) Continuous tobacco abuse Status: Chronic Current Visit: No Code(s): Z72.0 - Tobacco use History of Present Illness Chief Complaint: Nonhealing left lower extremity ulcer. History of Wound: Ms. Zapata is a 47yo with past medical history as stated above presented due to nonhealing left lower extremity ulcer. Initially noted as a bump which subsequently opened up 5 months ago. Has been managed with antibiotic orally and topically by her primary care physician without any significant change. She typically has scabbing overread which she occasionally scratches open. She reports similar episodes in other parts of her body. She is unsure of her last A1c or overall diabetes control. She states that she just completed a course of antibiotics for pneumonia. 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) Continuous tobacco abuse (Chronic) WATTS (dyspnea on exertion) (Chronic) Obstructive sleep apnea (Chronic) Adult-onset obesity (Chronic) Pulmonary hypertension (Chronic) Stage 1 mild COPD by GOLD classification (Chronic) Surgical History: cholecystectomy, - - ERCP with stenting of common bile duct Allergies/Adverse Reactions: Allergies amlodipine Allergy (Verified 02/05/18 07:15) severe edema atenolol Allergy (Verified 02/05/18 07:15) Swelling ciprofloxacin [From Cipro] Allergy (Verified 02/05/18 07:15) Itching ciprofloxacin HCl [From Cipro] Allergy (Verified 02/05/18 07:15) Itching estradiol [From Estrace] Allergy (Verified 02/05/18 07:15) Swelling meloxicam Allergy (Verified 02/05/18 07:15) Itching niacin Allergy (Verified 02/05/18 07:15) Itching Home Medications: Ambulatory Orders Medication Instructions Recorded Albuterol Aerosols [Ventolin 2.5 mg INHALATION Q4H PRN PRN 05/03/15 Aerosols] Losartan Potassium [Cozaar] 100 mg PO BID 05/03/15 Omeprazole [Prilosec] 40 mg PO BID 05/03/15 Imipramine HCl [Tofranil] 50 mg PO QHS 05/07/16 Cholecalciferol (Vitamin D3) 6,000 unit PO DAILY 08/31/16 [Vitamin D3] Levothyroxine [Synthroid] 50 mcg PO DAILY 08/31/16 Loratadine [Claritin] 10 mg PO DAILY 08/31/16 Multivit,Calc,Mins/Iron/Folic 1 tab PO DAILY 08/31/16 [Women's Daily Formula [place]] Tiotropium [place] [Spiriva 18 MCG] 1 puff INHALATION DAILY #1 inhaler 09/01/16 Aspirin [Aspir-Low] 81 mg PO DAILY 09/17/16 Magnesium 250 mg PO BID 09/17/16 Cyclobenzaprine [Flexeril] 10 mg PO BID PRN PRN 04/03/17 Diclofenac Sodium [Voltaren] 1 applic TP BID 04/03/17 Diltiazem HCl [Diltiazem 12Hr ER] 120 mg PO QHS 04/03/17 Duloxetine HCl 60 mg PO QHS 04/03/17 Hydrocodone/Acetaminophen 1 tab PO BID 04/03/17 [Hydrocodone-Acetamin 5-325 mg] Diltiazem HCl [Cartia Xt] 240 mg PO DAILY 07/07/17 albuterol sulfate HFA 90 2 puff INHALATION Q4H PRN PRN #18 g 02/05/18 mcg/actuation aerosol inhaler fluticasone 50 mcg/actuation nasal 2 spray INTRANASAL DAILY #16 g 02/05/18 spray,suspension glycopyrrolate 9 mcg-formoterol 2 puff INHALATION QAM AND QPM #1 02/05/18 4.8 mcg HFA aerosol inhaler inh insulin degludec (U-100) 100 9 unit SC QHS ml 02/05/18 unit/mL (3 mL) subcutaneous pen Smoking Status: Current every day smoker Review of Systems Constitutional: Denies: Anorexia, Chills, Fever Eyes: Denies: Blurred vision, Pain HEENT: Denies: Difficulty Swallowing Cardiovascular: Denies: Chest Pain Respiratory: Denies: Hemoptysis Gastrointestinal: Denies: Abdominal Pain, Hematemesis, Vomiting Skin: Denies: Jaundice - Physical Exam Vital Signs Pulse Resp BP 123 H 18 143/90 H 04/22/18 10:57 04/22/18 10:57 04/22/18 10:57 General: Alert, Oriented x3, Cooperative, No apparent distress HEENT: Atraumatic Oral: Moist Mucosa Neck: Supple Lungs: Normal air movement Extremities: No cyanosis, Edema Skin: Ulcer/ Wound Wound Measurements and Assessment WC - Nurse 1 - General Ulcer Measurement Start: 04/22/18 10:57 Freq: Status: Active Protocol: Activity Type Activity Date Activity User E-Sign Co-Sign Detail Recorded Client Recorded Date Recorded By Document 04/22/18 10:57 [id number] 04/22/18 11:08 04/22/18 10:57 Wound Center Nurse 1 [Ulcer Assessment] #1 LEFT LATERAL CALF -Combined with other wound No -Current Size (cm) - Length 0.4 -Current Size (cm) - Width 0.4 -Current Size (cm) - Depth 0.2 -Total Square Cm 0.16 -Date of Last Picture (Recall this 04/22/18 field) -Photo Taken Yes -Epithelialization None Present -Tunneling No -Undermining/Tunneling No -Circular Undermining No -Exudate Amt Medium -Exudate Type Yellow/Green -Granulation Amt Large (67-100%) -Granulation Quality [place] -Slough/Fibrin Yes -Necrosis Amt Medium (34-66%) -Necrotic Tissue Type Adherent Slough -Structure Exposed None/Limited to Skin Breakdown -Texture (Anna Marie-wound Skin Appearance) No Abnormality Assessed -Moisture (Anna Marie-wound Skin Appearance No Abnormality ) Assessed -Color (Anna Marie-wound Skin Appearance) No Abnormality Assessed -Temperature (Anna Marie-wound Skin No Abnormality Appearance) (Pt Warm) -Tenderness on Palpation (Anna Marie-wound Yes Skin Appearance) -Ulcer Cleansing Rinsed/ Irrigated with Saline -Foul Odor after Cleansing No -Anesthetic Used 4% Lidocaine Solution [Edema Assessment] -Lower Limb Edema Present No -Right Calf (cm) 44 -Right Ankle (cm) 23.7 -Left Calf (cm) 43.8 -Left Ankle (cm) 25 WC - Nurse 2 - General Ulcer CM Notes Start: 04/22/18 10:57 Freq: Status: Active Protocol: Activity Type Activity Date Activity User E-Sign Co-Sign Detail Recorded Client Recorded Date Recorded By Document 04/22/18 11:30 MW [id number] 04/22/18 11:40 MW 04/22/18 11:30 Wound Center Nurse 2 [Procedure/Treatment] #1 LEFT LATERAL CALF -Time 11:31 -Correct Patient Yes -Correct Side, Site, Position Yes -Correct Procedure Yes -Procedure Performed Yes -Type of Procedure Debridement -Clinical Debridement Subcutaneous -Post Debridement Size (cm) - Length 0.4 -Post Debridement Size (cm) - Width 0.5 -Post Debridement Size (cm) - Depth 0.3 -Total Square Cm 0.20 -Wound/Ulcer Outcome Not Healed -Ulcer Cleansing Rinsed/ Irrigated with Saline -Foul Odor after Cleansing No -Bioengineered Tissue No -Bleeding Controlled with Pressure -Offloading No -Treatment Response Procedure Tolerated Well [See Physician Procedure note for Specifics] Pain Scale: 0-10 Numeric [Pain] -Is Patient Pain Free? Yes Musculoskeletal: No Muscle Wasting Neurological: Cranial nerves II-XII grossly intact Psych/Mental Status: Normal Affect Debridement Note Post-Debridement Measurements/Treatment - Nurse 2 - General Ulcer CM Notes Start: 04/22/18 10:57 Freq: Status: Active Protocol: Activity Type Activity Date Activity User E-Sign Co-Sign Detail Recorded Client Recorded Date Recorded By Document 04/22/18 11:30 MW [id number] 04/22/18 11:40 MW 04/22/18 11:30 Wound Center Nurse 2 #1 LEFT LATERAL CALF -Time 11:31 -Correct Patient Yes -Correct Side, Site, Position Yes -Correct Procedure Yes -Procedure Performed Yes -Type of Procedure Debridement -Clinical Debridement Subcutaneous -Post Debridement Size (cm) - Length 0.4 -Post Debridement Size (cm) - Width 0.5 -Post Debridement Size (cm) - Depth 0.3 -Total Square Cm 0.20 -Wound/Ulcer Outcome Not Healed -Ulcer Cleansing Rinsed/ Irrigated with Saline -Foul Odor after Cleansing No -Bioengineered Tissue No -Bleeding Controlled with Pressure -Offloading No -Treatment Response Procedure Tolerated Well Pain Scale: 0-10 Numeric Is Patient Pain Free? Yes Wound debrided: Left lower extremity Wound Grade/Stage: Stage II Type of Debridement: Excisional debridement Anesthesia Used: 4% Lidocaine Solution Depth: Down to and including healthy tissue, in the subcutaneous layer Percentage of wound debrided: 100 Instrument Used: 3mm curette Tissue Removed: Slough and devitalized tissue Severity: Fat Layer Exposed Amount of bleeding with debridement: Mild Bleeding Controlled with: Pressure Patient tolerated procedure well Assessment/Plan Active Problems (Last Reviewed 02/05/18 @ 13:11 by [place] Brenner, PADMA-C) Ulcer of left lower extremity with fat layer exposed (Chronic) Type 2 diabetes mellitus (Chronic) Assessment: Nonhealing left lower extremity ulcer with fat layer exposed. Diabetes mellitus type 2 ? Controlled. Tobacco abuse. Morbid obesity. Bilateral lower extremity edema. Plan: Debridement done as documented above. Procedure was well-tolerated. Promogran with Adaptic over top. Change daily. Will request records from PCP. Double layer Tubigrip for edema management. Advised to elevate lower extremities when seated in bed. Increased protein intake recommended. Optimal blood sugar control also recommended. She was advised to follow-up with her PCP in this regard. All her questions were answered and she was asked to call any further questions or concerns. Follow-up in 1 week. This note was generated with [employer] software. It may contain incorrect words, spelling, and punctuation that were not noted in checking the note before signing.
--- OUTSIDE RECORDS SUMMARY | 2018-06-27 05:39 | XMS RPT_ITS | Continuity of Care Document ---
:1970 Author Organization [facility] Address [address] [place] [address] Phone Care Team Providers Name Role Phone Naomi Colunga DO Unavailable Edmundo Parr MD Unavailable Tanphaichitr - Crum, Dre Unavailable Edy Galan DO Unavailable [facility] Unavailable ARLEN Franklin Unavailable Unavailable Reji Jorge Unavailable Unavailable Long Winsome MCKINLEY Unavailable Unavailable Unavailable Unavailable Problems Name Dates Details Abnormal lung sounds (R09.89, 786.7) Status: Active Abnormal urine odor (R82.90, 791.9) Status: Active Acute gastritis without hemorrhage, unspecified gastritis type (K29.00, 535.00) Comments: has upper GI sched for tomorrowEGD 05/25 Status: Active Acute swimmer's ear of right side (H60.331, 380.12) Status: Active 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, 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) Comments: scope 05/25 to be survellainced q 5yr Status: Active Adult hypothyroidism (E03.9, 244.9) Status: Active Arrhythmia (I49.9, 427.9) Status: Active Arthritis (M19.90, 716.90) Status: Active Asthma (J45.909, 493.90) Status: Active BMI 50.0-59.9, adult (Z68.43, V85.43) Status: Active BMI 50.0-59.9, adult (Z68.43, V85.43) Status: Active BMI 60.0-69.9, adult (Z68.44, V85.44) Status: Active Cellulitis (L03.90, 682.9) Status: Active Chronic asthma without complication, unspecified asthma severity, unspecified whether persistent (J45.909, 493.90) Status: Active Chronic obstructive asthma with acute exacerbation (Renamed from Chronic obstructive asthma with exacerbation) (J44.1, 493.22) Status: Active Controlled type 2 diabetes mellitus without complication (E11.9, 250.00) Status: Active Cough (R05, 786.2) Status: Active Current smoker (F17.200, 305.1) Status: Active Diabetes typeII,controlled, renal comp (250.40) Comments: on difleconac nsaid and i think hi risk for kidney injury so ddint add --- can see what Dr Pak thinks-- her controlled oa pain is very impt to her Status: Active Dysuria (R30.0, 788.1) Status: Active Edema extremities (R60.0, 782.3) Status: Active Emotional disorder (F99, V40.9) Status: Active Epigastric pain (R10.13, 789.06) Comments: h/o gb and stent in CBD - stent removed yrs agothis pain really started way before the insulin use now just progressing Status: Active Esophagitis (K20.9, 530.10) Comments: EGD 05/25 Status: Active Fatty liver (K76.0, 571.8) Status: Active Fever and chills (R50.9, 780.60) Status: Active Fibromyalgia (M79.7, 729.1) Status: Active Flu-like symptoms (R68.89, 780.99) Status: Active Folliculitis (L73.9, 704.8) Comments: diffuse under R axilla and both breast Status: Active Glomerulonephritis, IgA (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, 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) Comments: Sees DR Larson Status: Active Hematuria (R31.9, 599.70) Comments: just juan francisco for blood Status: Active History of abnormal mammogram (Z87.898, V15.89) Status: Active History of sun exposure, severe (Z91.89, V15.89) Status: Active Hyperglycemia (R73.9, 790.29) Status: Active Hyperlipidemia, mild (E78.5, 272.4) Status: Active Hypertension (I10, 401.9) Comments: on CCB now and controlled -- good for pulm htn-- cant use BB for heart rate elevation bc of asthmauncontrolled Status: Active Itch of skin (L29.9, 698.9) Status: Active Kidney disease (N28.9, 593.9) Status: Active Left groin hernia (K40.90, 550.90) Status: Active Leg edema (R60.0, 782.3) Comments: she is taking diuretic now --elevating Status: Active Leg sore (L98.9, 709.9) Comments: 5 mo h/o Status: Active Mild intermittent asthma without complication (J45.20, 493.90) Status: Active Nausea (R11.0, 787.02) Status: Active Need for prophylactic vaccination and inoculation against influenza (Renamed from Need for immunization against influenza) (Z23, V04.81) Status: Active Noncompliance with medications (Z91.14, V15.81) Status: Active Nutritional counseling (Z71.3, V65.3) Status: Active Nutritional counseling (Z71.3, V65.3) Status: Active NOY on CPAP (G47.33, 327.23) Comments: doesnt wear cpap-- getting eval for teeth extraction and unable to wear mask right now Status: Active Osteoarthritis, chronic (M19.90, 715.90) Comments: seeing hai and doing PT in pool and injection soon Status: Active Osteoarthritis, chronic (M19.90, 715.90) Comments: needs hip replacement but told needs to lose wt first - doing why weight program and pool exercises now - lost 10# so far Status: Active Pain in both hands (M79.641, 729.5) Status: Active Pneumococcal vaccination given (Z23, V06.6) Status: Active Pregnancies () Comments: 2. Status: Active Proteinuria, unspecified type (R80.9, 791.0) Comments: dr larson stopped chorothiodone and pot -- adn started aldactonne but pt had to stop it bc of severe diarrhea-- she sees him soon will lst him manage Status: Active Pulmonary hypertension (I27.20, 416.8) Comments: Eddie manages Status: Active Pulmonary hypertension, mild (I27.20, 416.8) Status: Active Pustules determined by examination (L08.9, 686.9) Comments: cultures were staph only Status: Active Rash (R21, 782.1) Status: Active Screening mammogram, encounter for (Z12.31, V76.12) Status: Active Sinus tachycardia (R00.0, 427.89) Status: Active Sinusitis, acute (J01.90, 461.9) Status: Active Skin sore (L98.9, 709.9) Comments: abdomen Status: Active Smoker (F17.200, 305.1) Comments: discussed quitting-- tapering and down to 1/2 pack Status: Active Stress reaction (F43.0, 308.9) Status: Active Stress reaction (F43.0, 308.9) Status: Active Tachycardia (R00.0, 785.0) Status: Active Thyroid nodule (E04.1, 241.0) Status: Active Uncontrolled type 2 diabetes mellitus with stage 1 chronic kidney disease, 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 old doc in [place] , on [facility] , Status: Active Urinary incontinence in female (R32, 788.30) Comments: multifactorial -- stress / obestiy/ mobility/ rx lasix/ Status: Active UTI (urinary tract infection) (N39.0, 599.0) Status: Active Vitamin D deficiency (E55.9, 268.9) Status: Active Walking pneumonia (J18.9, 486) Status: Active Medications Name Dates Details Aspirin Adult Low Dose 81 MG Oral Tablet Delayed Release 1 (one) Tablet DR qd for 30 days Refills: 0 Ordered:24-Jan-2016 Jase Colunga DO, DO, Kathleen Start : 24-Jan-2016 Active Bactrim DS 800-160 MG Oral Tablet 1 (one) Tablet twice a day for 7 days Quantity: 14 {Tablet} Refills: 0 Ordered:15-Apr-2018 Jase Colunga DO, DO, Kathleen Start : 15-Apr-2018 Active Bevespi Aerosphere 9-4.8 MCG/ACT Inhalation Aerosol uad (9-4.8 MCG/ACT) Active Cartia XT 240 MG Oral Capsule Extended Release 24 Hour 1 (one) Capsule qd for 0 days Quantity: 30 {Capsule} Refills: 3 Ordered:24-Oct-2017 Jase Colunga DO, DO, Kathleen Start : 24-Oct-2017 Active Cephalexin 500 MG Oral Tablet 1 (one) Tablet q6hr for 7 days Quantity: 28 {Tablet} Refills: 0 Ordered:15-Apr-2018 Jase Colunga DO, DO, Kathleen Start : 15-Apr-2018 Active Claritin 10 MG Oral Capsule 1 (one) Capsule Capsule daily for 0 days Quantity: 30 {Capsule} Refills: 0 Ordered:12-Aug-2016 Reji Jorge Start : 07-Aug-2016 Active Cyclobenzaprine HCl 10 MG Oral Tablet 1 (one) Tablet qd for 30 days Refills: 0 Ordered:24-Jan-2016 Jase Colunga DO, DO, Kathleen Start : 24-Jan-2016 Active DULoxetine HCl 60 MG Oral Capsule Delayed Release Particles 1 (one) Capsule qd for 0 days Quantity: 30 {Capsule} Refills: 2 Ordered:12-Sep-2017 Jase Colunga DO, DO, Kathleen Start : 12-Sep-2017 Active HydroCHLOROthiazide 25 MG Oral Tablet 1 (one) Tablet Tablet qd for 0 days Quantity: 30 {Tablet} Refills: 2 Ordered:16-Oct-2017 Winsome Jaramillo LPN Start : 16-Oct-2017 Active Imipramine HCl 50 MG Oral Tablet 1 (one) Tablet qd for 90 days Quantity: 90 {Tablet} Refills: 0 Ordered:12-Sep-2017 Jase Colunga DO, DO, Kathleen Start : 12-Sep-2017 Active Losartan Potassium 100 MG Oral Tablet 2 (two) Tablet qd for 30 days Quantity: 60 {Tablet} Refills: 3 Ordered:17-Oct-2017 Jase Colunga DO, DO, Kathleen Start : 17-Oct-2017 Active [place] 5-325 MG Oral Tablet 1 bid prn pain (5-325 MG) Active ProAir HFA 108 (90 Base) MCG/ACT Inhalation Aerosol Solution 2 (two) Puff Puff tid prn for 0 days Quantity: 1 {Inhaler} Refills: 0 Ordered:07-Aug-2016 Luisito Reji Start : 07-Aug-2016 Active Synthroid 50 MCG Oral Tablet 1 (one) Tablet qd for 30 days Quantity: 30 {Tablet} Refills: 3 Ordered:17-Dec-2017 Jase Colunga DO, DO, Kathleen Start : 17-Dec-2017 Active Tradjenta 5 MG Oral Tablet 1 (one) Tablet qd for 90 days Quantity: 90 {Tablet} Refills: 1 Ordered:13-Jan-2017 Jase Colunga DO, DO, Kathleen Start : 13-Jan-2017 Active Tradjenta 5 MG Oral Tablet 1 (one) Tablet qd for 90 days Quantity: 90 {Tablet} Refills: 1 Ordered:13-Jan-2017 Jase Colunga DO, DO, Kathleen Start : 13-Jan-2017 Active Tresiba FlexTouch 100 UNIT/ML Subcutaneous Solution Pen-injector 9 Unit Unit qam for 0 days Quantity: 1 {Box} Refills: 0 Ordered:16-Dec-2017 Won BLACKWELL Meryl Start : 16-Dec-2017 Active Voltaren 1 % Transdermal Gel 1 qd (1 %) Active Advair Diskus 250-50 MCG/DOSE Inhalation Aerosol Powder Breath Activated 1 (one) Aero Pow Br Act bid for 30 days Quantity: 1 {Box} Refills: 0 Ordered:25-Apr-2016 Jase Colunga DO, DO, Kathleen Start : 25-Apr-2016 End : 25-May-2016 Inactive Albuterol Sulfate (2.5 MG/3ML) 0.083% Inhalation Nebulization Solution 1 (one) Nebulized Soln prn for 30 days Refills: 0 Ordered:20-Mar-2016 Jase Colunga DO, DO, Kathleen Start : 24-Jan-2016 End : 23-Feb-2016 Inactive Aldactone 25 MG Oral Tablet 1 qd (25 MG) End : 24-Sep-2017 Inactive Amoxicillin-Pot Clavulanate 875-125 MG Oral Tablet 1 (one) Tablet Tablet bid for 0 days Quantity: 20 {Tablet} Refills: 0 Ordered:22-Aug-2016 Hafsa Franklin LPN Start : 31-May-2016 End : 22-Aug-2016 Inactive Augmentin 875-125 MG Oral Tablet 1 (one) Tablet Tablet bid for 14 days Quantity: 28 {QS} Refills: 0 Ordered:07-Aug-2016 Reji Jorge Start : 07-Aug-2016 End : 21-Aug-2016 Inactive Bactrim DS 800-160 MG Oral Tablet 1 (one) Tablet Tablet bid for 0 days Quantity: 14 {Tablet} Refills: 0 Ordered:25-Apr-2016 Hafsa Franklin LPN Start : 27-Mar-2016 End : 25-Apr-2016 Inactive Bactrim DS 800-160 MG Oral Tablet 1 (one) Tablet bid for 30 days Refills: 0 Ordered:20-Mar-2016 Hafsa Franklin LPN Start : 24-Jan-2016 End : 20-Mar-2016 Inactive Cephalexin 500 MG Oral Capsule 1 (one) Capsule qid for 3 days Refills: 0 Ordered:20-Mar-2016 Hafsa Franklin LPN Start : 24-Jan-2016 End : 20-Mar-2016 Inactive Cheratussin AC 100-10 MG/5ML Oral Syrup 1-2 Teaspoon Teaspoon qhs prn for 0 days Quantity: 6 {Ounce} Refills: 0 Ordered:22-Aug-2016 Hafsa Franklin LPN Start : 07-Aug-2016 End : 22-Aug-2016 Inactive Diclofenac Sodium 75 MG Oral Tablet Delayed Release 1 (one) Tablet DR qd for 30 days Refills: 0 Ordered:05-Dec-2016 Hafsa Franklin LPN Start : 24-Jan-2016 End : 05-Dec-2016 Inactive Doxycycline Hyclate 100 MG Oral Capsule 1 (one) Capsule bid for 0 days Quantity: 20 {Capsule} Refills: 0 Ordered:15-Apr-2018 Hafsa Franklin LPN Start : 06-Feb-2018 End : 15-Apr-2018 Inactive Medrol 4 MG Oral Tablet Therapy Pack 1 qd (4 MG) Inactive MetFORMIN HCl 500 MG Oral Tablet 1 (one) Tablet bid for 10 days Quantity: 20 {Tablet} Refills: 0 Ordered:24-Jan-2017 Reji Jorge Start : 24-Jan-2017 End : 03-Feb-2017 Inactive Omeprazole 40 MG Oral Capsule Delayed Release 1 (one) Capsule DR bid for 90 days Quantity: 180 {Capsule} Refills: 0 Ordered:29-Dec-2017 Jase Colunga DO, DO, Kathleen Start : 29-Dec-2017 End : 29-Mar-2018 Inactive Promethazine HCl 25 MG Oral Tablet 1 (one) Tablet q8hrs prn nausea for 0 days Quantity: 15 {Tablet} Refills: 0 Ordered:25-Jun-2017 Hafsa Franklin LPN Start : 17-Jun-2017 End : 25-Jun-2017 Inactive Proventil HFA 108 (90 Base) MCG/ACT Inhalation Aerosol Solution 2 (two) puffs prn for 30 days Refills: 0 Ordered:20-Mar-2016 Jase Colunga DO, DO, Kathleen Start : 24-Jan-2016 End : 23-Feb-2016 Inactive ROPINIRole HCl 3 MG Oral Tablet 1 (one) Tablet qd for 90 days Quantity: 90 {Tablet} Refills: 1 Ordered:25-Jun-2017 Hafsa Franklin LPN Start : 13-Jan-2017 End : 25-Jun-2017 Inactive Spiriva HandiHaler 18 MCG Inhalation Capsule 1 Capsule qd for 0 days Quantity: 1 {Inhaler} Refills: 0 Ordered:06-Feb-2018 Reji Jorge Start : 05-Sep-2016 End : 06-Feb-2018 Inactive Topamax 100 MG Oral Tablet 1 (one) Tablet tid for 90 days Quantity: 180 {Tablet} Refills: 0 Ordered:25-Jun-2017 Jase Colunga DO, DO, Kathleen Start : 25-Jun-2017 End : 23-Sep-2017 Inactive TraMADol HCl 50 MG Oral Tablet 1 (one) Tablet Tablet qhs for 0 days Quantity: 30 {Tablet} Refills: 0 Ordered:05-Dec-2016 Hafsa Franklin LPN Start : 07-Aug-2016 End : 05-Dec-2016 Inactive Triamcinolone Acetonide 0.1 % External Cream 1 (one) Cream prn for 30 days Refills: 0 Ordered:20-Mar-2016 Jase Colunga DO, DO, Kathleen Start : 24-Jan-2016 End : 23-Feb-2016 Inactive AmLODIPine Besylate 10 MG Oral Tablet 1 (one) Tablet qd for 90 days Quantity: 90 {Tablet} Refills: 3 Ordered:25-Apr-2016 Jase Colunga DO, DO, Kathleen Start : 25-Apr-2016 End : 25-Apr-2016 Discontinued Comments:tons of edemaand recurrent celluliits Chlorthalidone 25 MG Oral Tablet 1 (one) Tablet qd for 30 days Refills: 0 Ordered:17-Jun-2017 Renaldo Pimentel Start : 24-Jan-2016 End : 17-Jun-2017 Discontinued Cipro HC 0.2-1 % Otic Suspension 3-4 drops R ear drops R ear bid for 10 days for 0 days Quantity: 1 {Bottle} Refills: 0 Ordered:17-Jun-2017 Renaldo Pimentel Start : 26-Mar-2017 End : 17-Jun-2017 Discontinued DULoxetine HCl 30 MG Oral Capsule Delayed Release Particles 1 (one) Capsule Capsule qd for 0 days Quantity: 10 {Capsule} Refills: 0 Ordered:17-Jun-2017 Renaldo Pimentel Start : 05-Dec-2016 End : 17-Jun-2017 Discontinued Furosemide 40 MG Oral Tablet 1 (one) Tablet qd for 90 days Quantity: 90 {Tablet} Refills: 0 Ordered:17-Jun-2017 Renaldo Pimentel Start : 04-Apr-2016 End : 17-Jun-2017 Discontinued Potassium Chloride ER 20 MEQ Oral Tablet Extended Release 1 (one) Tablet ER qd for 30 days Quantity: 60 {Tablet} Refills: 1 Ordered:17-Jun-2017 Renaldo Pimentel Start : 05-Dec-2016 End : 17-Jun-2017 Discontinued Simvastatin 20 MG Oral Tablet 1 (one) Tablet Tablet qd for 0 days Quantity: 30 {Tablet} Refills: 2 Ordered:17-Jun-2017 Renaldo Pimentel Start : 31-May-2016 End : 17-Jun-2017 Discontinued Allergies and Adverse Reactions Name Dates Details Atenolol *BETA BLOCKERS* (Allergy) Reaction: Shortness of breath, Edema Status: Active Cipro *FLUOROQUINOLONES* (Allergy) Status: Active Comments: itching Niacin *VITAMINS* (Allergy) Reaction: Vomiting Status: Active Simvastatin *ANTIHYPERLIPIDEMICS* Reaction: Edema (Allergy) Status: Active Past Medical History Name Dates Details Abnormal TSH (R79.89, 790.6) Status: Inactive as of 05-Dec-2016 Abscess of buttock (L02.31, 682.5) Status: Inactive as of 18-Dec-2016 Acute epigastric pain (R10.13, 789.06) Comments: suspect gastritis --- thats what EGD showed in 2014 adn didnt do it Status: Inactive as of 25-Apr-2016 Allergic rhinitis (J30.9, 477.9) Status: Inactive as of 05-Dec-2016 Body mass index 45.0-49.9, adult (Z68.42, V85.42) Status: Inactive as of 05-Dec-2016 Cellulitis of left lower extremity (L03.116, 682.6) Status: Inactive as of 25-Apr-2016 Chest pain, atypical (R07.89, 786.59) Status: Inactive as of 05-Dec-2016 Dehydration (E86.0, 276.51) Comments: GI related, family has as well Status: Inactive as of 25-Jun-2017 Edema extremities (R60.0, 782.3) Comments: noy and wears cpap, obesity Status: Inactive as of 05-Dec-2016 Hematuria (R31.9, 599.70) Comments: chronic Status: Inactive as of 05-Dec-2016 Hemorrhagic cystitis (N30.91, 595.9) Status: Inactive as of 05-Dec-2016 History of MRSA infection (Z86.14, V12.04) Status: Inactive as of 05-Dec-2016 Other proteinuria (R80.8, 791.0) Comments: on an ARB -- discused sugar control and bp control, wt loss Status: Inactive as of 05-Dec-2016 Short of breath on exertion (R06.02, 786.05) Status: Inactive as of 05-Dec-2016 Skin sore (L98.9, 709.9) Status: Inactive as of 05-Dec-2016 Ulcer (L98.499, 707.9) Status: Resolved as of 04-Apr-2016 Urinary frequency (R35.0, 788.41) Status: Inactive as of 05-Dec-2016 Vomiting alone (R11.11, 787.03) Status: Inactive as of 25-Jun-2017 Vomiting and diarrhea (R11.10, 787.03) Status: Inactive as of 25-Jun-2017 Procedures Procedure Dates Details Back Surgery Completed Breast Biopsy Completed Cholecystectomy Completed Hysterectomy Completed Laminectomy Completed newck sx Completed Tubal Ligation Completed Date Value Details 05-Feb-2018 Pulmonary Visit Report Result: Comments: See Note; NOTES: [facility] [address] [place] [address] OFFICE VISIT Date of Service: 02/05/18 MR#: [id number] Acct: [id number] Name: JANIS PURVIS Rep #: [id number] : 1970 Provider: Albania Brenner Age/Sex: 47/F [place] [facility] [place] Status: Signed Assessment AND Plan 1. Moderate COPD (chronic obstructive pulmonary disease) J4 4.9 Plan Deteriorated. She does not appear to be in exacerbation of her COPD today however her COPD is progressing. Stepping up therapy, discontinuing Spiriva Respimat and starting on Bevespi. Personall y instructed on how to use the Bevespi Aerosphere inhaler. No additional testing at this time. Follow-up with Dr. Gonsalez in 3 months. Contact the office and give us an update on how she has responded to the new medication. It is quite possible that her worsening shortness of breath is related to her worsening COPD. Orders Orders: 2. Obstructive sleep apnea G47.33 Plan Deteriorated. Admittedly noncompl iant for several months. Has resumed use over the past 2 weeks. Has noticed improvement in benefit from using. Continue to encourage compliance. Follow-up with Dr. Gonsalez in 3 months. 3. Adult-onset obe sity E66.9 Plan Encourage weight loss. 4. Continuous tobacco abuse Z72.0 Plan A 15 minute, face to face discussion occurred with the patient regarding smoking cessation. Risks of continued tobacco abus e was covered such as heart disease, stroke, cancer, and emphysema, among others. The many health benefits quitting, was discussed and the patient was educated on the fact that smokers lose an average o f 10 minutes of life for every cigarette smoked. We discussed the pathophysiology of smoking addiction and its dual addictive components of nicotine addiction and psychological addiction. Nicotine repl acement was discussed. We also talked about medications that may be helpful such as Bupropion (Wellbutrin) or Varenicline (Chantix). Advise was also offered on preoccupying the mind during trigger times with activities such as chewing gum, sucking on hard candy or utilizing their hands with an activity such as drawing. Currently the patient is smoking one half Ppd. At this time, JANIS elects to quit cold turkey. We will continue to monitor the tobacco abuse and encourage cessation. You may call the free hotline 1-804-LVXO-NOW. People who use this line are THREE times more likely to remain smoke f ree. 5. Chronic kidney disease, unspecified CKD stage N18.9 Plan Complicates exam, plan, care and prognosis. Defer management to nephrology. Plan Detail Other Orders Orders: Other Medications New: ins ulin degludec (U-100) (Tresiba FlexTouch U9 units subcut QHS -100 insulin) albuterol sulfate HFA 90 mcg/actuation 2 puffs Inhalation Q4H PRN PRN 18 grams 8RF Shortness Of Breath Follow Up 3 Months (DM B) HPI 2 M FU: Chief Complaint: Shortness of breath HPI Comments Details: This patient presents to the office today after a long absence to resume follow-up on her COPD. She is in a wheelchair, on michelle m air and accompanied today by her daughter and 2 grandsons. The patient has not been seen in the ED or urgent care for any respiratory illnesses since her last office visit. She has been treated for e xacerbations of bronchitis by her PCP. Last treatment was quite a while ago. She has been compliant with Spiriva as prescribed. She denies any medication side effects. She is using her rescue inhaler a pproximately daily. She has requested a refill. She is using her albuterol nebulizer occasionally for shortness of breath and does receive temporary partial resolution. She states that her shortness of breath has worsened over the past 6-8 weeks. She has recently noticed hoarseness, postnasal drip and a dry cough. She admits that she has had an increase in her weight as well as lower extremity edema. She continues follow-up with nephrology for her kidney failure and reports that recently her information specialist took her off of her diuretics. She also admits that she was noncompliant with her CPAP up unti l about 2 weeks ago. She began reusing the CPAP and has noticed that she no longer awakens herself gasping for air while sleeping at night. She continues to sleep in the recliner. She does feel rested u flaquito arising in the morning and notices that the CPAP is helping. She continues to smoke 1/2 pack of cigarettes daily. In the past she has tried nicotine patches and cold turkey and has been unsuccessfu l. She understands that her continued smoking is contributing to her continued lung function loss. PFTs completed on January 01, 2018 were reviewed, impression is irreversible moderate large airway d isease with asymmetric reduction in diffusing capacity, noted that there is a significant worsening since PFTs were completed back in 2017. FVC 74% of predicted, FEV1 65% of predicted, FEV1/FVC 70% of p redicted, TLC 93% predicted, RV 65% predicted and DLCO 67% of predicted. Intake Vital Signs02/05/18 Height 5 ft 4 in 02/05/18 Weight: 346 lb Intake Visit Reasons: 2 M FU Assistant Education Director Required: No Ac companied by: Family / Other Is patient in pain?: Yes Allergies amlodipine Allergy (Verified 02/05/18 07:15) severe edema atenolol Allergy (Verified 02/05/18 07:15) Swelling ciprofloxacin [From Cipro] Allergy (Verified 02/05/18 07:15) Itching ciprofloxacin HCl [From Cipro] Allergy (Verified 02/05/18 07:15) Itching estradiol [From Estrace] Allergy (Verified 02/05/18 07:15) Swelling meloxicam Allergy ( Verified 02/05/18 07:15) Itching niacin Allergy (Verified 02/05/18 07:15) Itching Medications Albuterol Aerosols [Ventolin Aerosols] 2.5 mg INHALATION Q4H PRN PRN 05/03/15 [History Confirmed 02/05/18 ] Losartan Potassium [Cozaar] 100 mg PO BID 05/03/15 [History Confirmed 02/05/18] Omeprazole [Prilosec] 40 mg PO BID 05/03/15 [History Confirmed 02/05/18] Imipramine HCl [Tofranil] 50 mg PO QHS 05/07/16 [History Confirmed 02/05/18] Cholecalciferol (Vitamin D3) [Vitamin D3] 6,000 unit PO DAILY 08/31/16 [History Confirmed 02/05/18] Levothyroxine [Synthroid] 50 mcg PO DAILY 08/31/16 [History Confirmed ] Loratadine [Claritin] 10 mg PO DAILY 08/31/16 [History Confirmed 02/05/18] Multivits,Ca,Minerals/Iron/FA [Women's Daily Formula Caplet] 1 tab PO DAILY 08/31/16 [History Confirmed 02/05/18] Tiotr opium [place] [Spiriva 18 MCG] 1 puff INHALATION DAILY #1 inhaler 09/01/16 [Rx Confirmed 02/05/18] Aspirin [Aspir-Low] 81 mg PO DAILY 09/17/16 [History Confirmed 02/05/18] Magnesium 250 mg PO BID [History Confirmed 02/05/18] Cyclobenzaprine [Flexeril] 10 mg PO BID PRN PRN 04/03/17 [History Confirmed 02/05/18] Diclofenac Sodium [Voltaren] 1 applic TP BID 04/03/17 [History Confirmed 02/05/18] D iltiazem HCl [Diltiazem 12Hr ER] 120 mg PO QHS 04/03/17 [History Confirmed 02/05/18] Duloxetine HCl 60 mg PO QHS 04/03/17 [History Confirmed 02/05/18] Hydrocodone/Acetaminophen [Hydrocodone-Acetamin 5-3 25 mg] 1 tab PO BID 04/03/17 [History Confirmed 02/05/18] Diltiazem HCl [Cartia Xt] 240 mg PO DAILY 07/07/17 [History Confirmed 02/05/18] albuterol sulfate HFA 90 mcg/actuation aerosol inhaler 2 puff IN HALATION Q4H PRN PRN #18 g 02/05/18 [Rx Confirmed 02/05/18] fluticasone 50 mcg/actuation nasal spray,suspension 2 spray INTRANASAL DAILY #16 g 02/05/18 [Rx Confirmed 02/05/18] glycopyrrolate 9 mcg-formo terol 4.8 mcg HFA aerosol inhaler 2 puff INHALATION QAM AND QPM #1 inh 02/05/18 [Rx Confirmed 02/05/18] insulin degludec (U-100) 100 unit/mL (3 mL) subcutaneous pen 9 unit SC QHS ml 02/05/18 [History Co nfirmed 02/05/18] PFSH Medical History Continuous tobacco abuse (Chronic) WATTS (dyspnea on exertion) (Chronic) Obstructive sleep apnea (Chronic) Adult-onset obesity (Chronic) Pulmonary hypertension (Chronic) Stage 1 mild COPD by GOLD classification (Chronic) Social History Smoking Status: Current every day smoker second hand exposure: Yes alco hol intake: never substance use type: does not use caffeine: No what type of physical activity do you participate in: none Review of Systems Const CONSTITUTIONAL: Positive fatigue; negative anorexia , body ache, chills, daytime sleepiness, fever(s), night sweats, oral thrush, stops breathing during sleep, weight loss, sleeping in chair, weight loss, weight gain, frequent colds, seasonal allergies, other, headache(s) or orthopnea EETM Ear Nose Throat Mouth: Positive hearing normal and post nasal drip; negative hard of hearing, hoarseness, dry mouth in morning, change in vision, itchy eyes, eye lorenza n, swallowing Difficulty, ear pain, nose bleed, headache(s), mouth pain, nasal congestion, nasal discharge, sinus pain, sinus pressure, sore throat or other Cardio Cardiovascular: Positive edema Locatio n: lower extremity; negative chest pain, chest pain at rest, chest pain with activity, irregular heart rhythm, shortness of breath when lying down, palpitations, murmur or other Resp Respiratory: Positi ve as per HPI, shortness of breath shortness of breath: Positive with activity and cough cough: Positive non-productive; negative pain with cough, wheezing, chest congestion, chest tightness, pain on in spiration, inhalers, increase use of rescue inhalers, snoring, apnea or other Gastro Gastrointestional: Negative bloody stools, change in appetite, difficulty swallowing, reflux, hematemesis, melena sto ol, loose stool, constipation or other Genitourinary: Negative blood in urine, nocturia, pain with urination or other Musc Musculoskeletal: Positive body pain; negative back pain, neck pain or other Skin/Breast Skin/Breast: Negative dry skin, itching, rash, unusual bruising, breast lump or other Neuro Neurological: Negative restless legs, confusion, weakness or other Psych Psychocological: Negative abnormal sleep pattern, anxiety, thoughts of hurting self/others, hopelessness or other Lymph Lymphatic: Negative easy bleeding, easy bruising, other or swollen lymph nodes Exam Const Constitutional: Positive conversant, cooperative, in no acute respiratory distress, well developed, well nourished, smells of smoke and obese Head Head: Positive normocephalic and atraumatic; negative cyanosis of lips /distal nose Eyes Eye: Positive clear conjunctiva; negative nystagmus or scleral abnormality Ears Ear: Positive hearing normal and external ears normal; negative hard of hearing Nose Nose: Positive exte rnal nose normal and no nasal discharge; negative epistaxis Mouth Mouth: Positive post nasal drip, oral mucosae normal, crowded posterior oropharynx, no lesions and poor dentition; negative malodorous b reath or oral thrush present Mallampati Score: IV: Mallampati Score Neck Neck: Positive normal visual inspection, full ROM and trachea midline; negative lymphadenopathy, JVD or tender Chest Wall Chest: Positive normal inspection of the chest and symmetric chest movement; negative increased A/P diameter Resp lung sounds: Positive clear to auscultation, diminished, normal expiratory time and normal resp iratory effort; negative wheezes, rhonchi, rales, dullness to percussion or wheeze present on forced exhalation Cardio Cardiac: Positive regular rate, regular rhythm, S1 normal and S2 normal; negative m urmur GI GI: Positive normal to inspection and obese; negative distended Genitourinary: Positive deferred Musc Musculoskeletal: Positive ROM normal and in a wheelchair; negative kyphosis or scoliosis Skin Pulmonary Skin Exam: Positive intact; negative rash or lesion Pulses Pulse: Yes pulses normal x4 extremities Extremities Extremities: Yes capillary refill normal, No clubbing, No cyanosis, Yes sergio ma Location: lower extremity location: Bilateral pitting +3 Neuro Neurologic: Yes conversant, Yes no focal neuro deficits Lymph Lymphatic: No lymphadenopathy, No tenderness, No cervical adenopathy Psych Appearance: Positive grossly normal and eye contact Mental Status: Positive mental status grossly normal Mood: Positive congruent mood Affect: Positive normal affect Office Procedures Alpha One Finge r Stick Alpha One Procedure performed by: Maryann Smith Alpha One Screening Test: Yes alpha one test completed, tolerated well and dressing applied Inhaler Training Inhaler Training Procedure perfo rmed by: Albania Brenner Inhaler Training: Yes personally trained on inhaler use, sample provided, first dose given in the office, expresses understanding and continue to monitor Smoking Cessation Ti me Spent greater than 10 minutes: Yes Coding Level of Care Code Off vis,est,level 4 Diagnoses Moderate COPD (chronic obstructive pulmonary disease) J44.9 Obstructive sleep apnea G47.33 Adult-onset ob esity E66.9 Continuous tobacco abuse Z72.0 Chronic kidney disease, unspecified CKD stage N18.9 Renal failure chronicity: chronic Chronic kidney disease stage: unspecified stage Additional Codes Alpha O ne (NOCHG) Time Spent - greater than 10 minutes: Yes (97094) 02/05/18 1425 <Electronically signed by Albania Brenner INTERNET CAFE MANAGERGianfrancoC> Date Gino Brenner INTERNET CAFE MANAGER-C Cosigner Signature: Date (if applicable) CC: Naomi Colunga DO 02-Jan-2018 Pulmonary Function Report Comp Result: Comments: See Note; NOTES: [facility] Pulmonary Services/Neurology [address] [place] [address] MR#: [id number] Acct: [id number] Name: JANIS ZAPATA Rep #: [id number] : 0 1970 47 From: Say Rosa MD Referring Dr: Albania Brenner NP Status: REG CLI Ordering Dr: Date: Location: [facility] Sex: F C COMPLETE PULMONARY FUNCTION TEST INTERPRETATION Brief HPI: Patient is a 47 year old female, currently under the care of Albania Brenner, who presents to [facility] for complete pulmonary function tests secondary to diagnosis of dyspnea. Respira tory therapist reports good effort and reproducible results. Interpretation: Forced expiration spirometry shows a moderate large airways obstructive ventilatory defect with an FEV1 of 64% predicted. T here is no significant bronchodilator response by ATS criteria. Spirograms are of good quality and plateau slowly, indicating slowly emptying areas of the lungs. The respiratory flow volume loop shows d ecreased expiratory flow rates at all lung volumes consistent with airway obstruction. Lung volumes by body plethysmography show a normal total lung capacity at 4.62 L, 93% predicted. All other lung vo lumes are within normal limits. Diffusion capacity by carbon monoxide is decreased at 67% predicted. The airway resistance is normal. Compared to previous pulmonary function tests from 10/17/2016, ther e has been a significant reduction in FVC, FEV1 and TLC by 17%, 20% and 14% respectively. Impression: Irreversible moderate large airways obstructive ventilatory defect with a symmetric reduction diff using capacity consistent with COPD. Patient has had significant worsening compared to study in 2017. 01/02/18608 <Electronically signed by Say Rosa MD> Date Say Rosa MD CC: Say Rosa MD; Albanai Brenner; Naomi Colunga DO Date Dictated: 01/02/18605 Date Transcribed: 01/02/18605 Sign Writer Letterer Or Painter: CAREN Signed 05-Dec-2017 Emergency Department Summary Result: Comments: See Note; NOTES: [facility] Medical Records Department [address] [place] [address] Emergency Department Summary 12/05/17 0651 MR#: [id number] Acct: [id number] Name: JANIS ZAPATA Rep #: [id number] : 1970 47 From: Alvarez Vu PCP: Naomi Colunga DO Status: DEP ER - ER Visit Summary Date of Service: 12/05/17 Chief Complaint: Back pain History of Presen t Illness: The patient is a 47 F history of chronic lower back pain left hip pain for years. no new injuries. She sees pain management Dr. Valles. Has had injections in the past. She is on [place] 1-2 ta bs at night. History of renal insufficiency per patient. Ambulates with a cane. Physical Examination: General: Alert and oriented 3, no acute distress HEENT: Normocephalic, atraumatic. Moist mucosa mem branes Neck: supple, nontender. Cardiovascular: Regular rate and rhythm, no murmurs Respiratory: Normal breath sounds, symmetric, no distress Back: Tender palpation Lumbar left. Straight leg test negati ve. Negative logroll left hip. Abdomen: Soft, nontender, nondistended Extremities: Nontender, no edema, pulses intact 4 Neuro: no focal neurological deficits. Test Results: [] Emergency Department Co urse and Treatment: Patient with chronic symptoms. Denies any cauda equina symptoms. Patient sees pain management. Discussed subcu opiate injection of Dilaudid. Prior to discharge had itching, p.o. Lakisha dryl was given. She will follow-up with her pain physicians for reevaluation. Treatment Plan: [] Disposition: Discharge Impression: 1. Chronic back pain 2. Chronic left hip pain This note was gene rated with [employer] dictation software. It may contain incorrect words, spelling, and punctuation that were not noted in review of the chart prior to signing ED Disposition - Plan for ED Patient: Dispo sition: Home or Assisted Living Chief Complaint: Back Diagnosis: Chronic back pain, Chronic left hip pain Instructions: ED Chronic Pain Management Referrals: Naomi Colunga DO [Primary Care Provider] - Keith Valles [NON-STAFF] - What to do if you have Problems For any increased pain, shortness of breath, bleeding, nausea or vomiting, chest pain, or any unexpected problems, contact your Primar y Care Provider. Call [facility] ([phone]) or report to the closest Emergency Room. Call 911 if necessary. 12/05/17 0843 <Electronically signed by Alvarez Vu> Date __ Alvarez Vu Cosigner Signature (If Indicated): Date CC: Naomi Colunga DO 20-Oct-2017 Discharge Instruction Result: Comments: See Note; NOTES: [facility] Medical Records Department [address] [facility] [place] [address] Discharge Instruction 10/20/17 1410 MR#: [id number] Acct: [id number] Name: JANIS ZAPATA Rep #: [id number] : 1970 47 From: Estephania Shay MD PCP: Naomi Colunga DO Status: REG ER ED Disposition - Plan for ED Patient: Chief Complaint: Abd Pain Instructions: ED Constipa tion Referrals: Naomi Colunga DO [Primary Care Provider] - Kerrie Eng MD [STAFF PHYSICIAN] - Edmundo Parr MD [STAFF PHYSICIAN] - What to do if you have Problems For any increased pain, short ness of breath, bleeding, nausea or vomiting, chest pain, or any unexpected problems, contact your Primary Care Provider. Call [facility] ([phone]) or report to the closest Emergency Room. Ca ll 911 if necessary. 10/20/17 1411 <Electronically signed by Estephania Shay MD> Date Estephania Shay MD Cosigner Signature (If Ind icated): Date CC: Naomi Colunga DO 20-Oct-2017 Discharge Instruction Result: Comments: See Note; NOTES: [facility] Medical Records Department [address] [place] [address] Discharge Instruction 10/20/17 1409 MR#: [id number] Acct: [id number] Name: JANIS ZAPATA Rep #: [id number] : 1970 47 From: Estephania Shay MD PCP: Naomi Colunga DO Status: REG ER ED Disposition - Plan for ED Patient: Chief Complaint: Abd Pain Instructions: ED Constipa tion Referrals: Naomi Colunga DO [Primary Care Provider] - Edmundo Parr MD [STAFF PHYSICIAN] - Kerrie Eng MD [STAFF PHYSICIAN] - What to do if you have Problems For any increased pain, short ness of breath, bleeding, nausea or vomiting, chest pain, or any unexpected problems, contact your Primary Care Provider. Call [facility] ([phone]) or report to the closest Emergency Room. Ca ll 911 if necessary. 10/20/17 1410 <Electronically signed by Estephania Shay MD> Date Estephania Shay MD Cosigner Signature (If Ind icated): Date CC: Naomi Colunga DO 20-Oct-2017 Emergency Department Summary Result: Comments: See Note; NOTES: [facility] Medical Records Department [address] [place] [address] Emergency Department Summary 10/20/17 1009 MR#: [id number] Acct: [id number] Name: JANIS ZAPATA Rep #: [id number] : 1970 47 From: Estephania Shay MD PCP: Naomi Colunga DO Status: REG ER - ER Visit Summary Date of Service: 10/20/17 Chief Complaint: Abdominal pain Hist ory of Present Illness: The patient is a 47 F presenting with abdominal pain. She states that she has had constipation and has been unable to have a bowel movement for the past 8 days. She has nausea wi thout vomiting. She was seen by her primary care physician who was concerned about possibility of left inguinal hernia. She was referred to Dr. Parr. Physical Examination: Vitals are stable. Patient is afebrile. Alert no acute distress. HEENT exam is unremarkable. Neck is supple. Lungs are clear and equal bilaterally. Heart is regular rate and rhythm. Abdomen is soft obese, tenderness in the left lower quadrant, no rebound or guarding Extremities are unremarkable. Skin is warm and dry. No focal neurologic deficit. Remainder of exam is unremarkable. Emergency Department Course and Treatment: P atient is given IV Zofran, morphine. CBC, chemistries unremarkable other than creatinine 1.42. Urinalysis unremarkable. CT abdomen pelvis with IV and oral contrast was obtained and shows hepatomegaly an d fatty infiltration of the liver. Tiny air bubble in the right pararectal space most likely secondary to remote incision and drainage of the perirectal abscess. Findings were discussed with Dr. Velasquez ames performed her perirectal abscess drainage. She will be treated for constipation and will follow-up in her office. Advised return to ED for worsening complaints. Disposition: Discharge home Impres dasha: Abdominal pain, constipation This note was generated with [employer] dictation software. It may contain incorrect words, spelling, and punctuation that were not noted in review of the chart prior t o signing ED Disposition - Plan for ED Patient: Chief Complaint: Abd Pain Referrals: Naomi Colunga DO [Primary Care Provider] - What to do if you have Problems For any increased pain, shortnes s of breath, bleeding, nausea or vomiting, chest pain, or any unexpected problems, contact your Primary Care Provider. Call [facility] ([phone]) or report to the closest Emergency Room. Call 911 if necessary. 10/20/17 1409 <Electronically signed by Estephania Shay MD> Date Estephania Shay MD Cosigner Signature (If Indica germain): Date CC: Naomi Colunga DO 20-Oct-2017 Abdomen/Pelvis WITH Contrast Result: Comments: See Note; NOTES: [facility] Imaging Services [address] [place] [address] Abdomen/Pelvis WITH Contrast MR#: [id number] Acct: [id number] Name: JANIS ZAPATA Rep #: [id number] : 1970 F 47 From: Matt Beckwith MD PCP: Naomi Colunga DO Status: REG ER Study: Abdomen/Pelvis WITH Contrast Date of Exam: 10/20/17 Exam# [id number] Ordering Dr: Grecia Shay MD STUDY: CT ABDOMEN AND PELVIS WITH CONTRAST REASON FOR EXAM: Female, 47 years old. Nausea and chills. No bowel movements for 8 days. RADIATION DOSAGE (If Supplied By Facility): CTDIvol = ( 21.8 7 ) mGy, DLP = ( 1722.09 ) mGycm TECHNIQUE: Transaxial images were obtained from the dome of the diaphragm to the symphysis pubis with oral contrast. 100 ml of Isovue 300 contrast was administered. Sag ittal and coronal images were reconstructed. Individualized dose optimization techniques were used for this CT. COMPARISON: Comparison is made with prior study dated November 06, 2016. FINDINGS: The visualized lung bases are unremarkable. The visualized portions of the heart are within normal limits. There is decreased attenuation of the liver consistent with steat osis. Hepatomegaly. There are surgical clips in the gallbladder fossa consistent with a prior cholecystectomy. Normal spleen. Normal pancreas. Normal bilateral adrenal glands. Normal right kidney. Nor mal left kidney. There is a small hiatal hernia. Normal small intestine. Normal colon. There is non-visualization of the appendix. Normal abdominal aorta. Normal inferior vena cava. Normal retroperito neum. Normal urinary bladder. There is absence of the uterus consistent with a prior hysterectomy. Tiny air bubble in the right pararectal space. This is the site of prior incision and drainage of a ri ght perirectal abscess. There is a small umbilical hernia containing fat. Small bilateral inguinal lymph nodes. Prior laminectomy and fusion at the L5-S1 level with disc space narrowing. CT/Abdomen/Pelvis WITH Contrast IMPRESSION: Hepatomegaly and fatty infiltration of the liver. Tiny air bubble in the right pararectal space most likely seconda ry to remote incision and drainage of the perirectal abscess. Electronically Signed: Matt Beckwith MD at 13:14 EDT Tel [phone], Service support , CC: Estephania Shay MD; Naomi Colunga DO Sign Writer Letterer Or Painter: Signed 03-Oct-2017 6 Minute Walk Test Result: Comments: See Note; NOTES: [facility] Pulmonary Services/Neurology [address] [place] [address] MR#: [id number] Acct: [id number] Name: JANIS ZAPATA Rep #: [id number] : 1970 47 From: Say Rosa MD Referring Dr: Albania Brenner NP Date: Ordering Dr: Sex: F C Location: PS PSN 6 Minute Walk Test - 6 Minute Walk Test 6 Minute Walk Test: 6 Minute Walk Test P SN:6-Minute Walk Test Start: 10/03/17 11:21 Freq: Status: Active Protocol: [id number].[id number] Document 10/03/17 10:55 [facility]Rec: 10/03/17 11:24 [id number]) 6 Minute Walk Test Date Performed 10/03/17 Time Perform ed 10:55 Height 5 ft 4 in Weight: 151.953 kg Weight in Pounds 335.[address]: Albania Brenner Assistive device used: Cane Pre-test Oxygen Delivery Method Room Air Pulse Ox (%) 98 Pulse Rate (60- 100 beats/min) 98 Dyspnea Daniel Scale (0-10) 0 Exertion Daniel Scale (6-20) 6 1st minute Oxygen Delivery Method Room Air Pulse Ox (%) 95 Pulse Rate (60-100 beats/min) 108 H Number of Rests Taken 0 [address] [place] te Oxygen Delivery Method Room Air Pulse Ox (%) 97 Pulse Rate (60-100 beats/min) 112 H Number of Rests Taken 0 3rd minute Oxygen Delivery Method Room Air Pulse Ox (%) 97 Pulse Rate (60-100 beats/min) 93 Number of Rests Taken 1 4th minute Oxygen Delivery Method Room Air Pulse Ox (%) 97 Pulse Rate (60-100 beats/min) 103 H Number of Rests Taken 0 5th minute Oxygen Delivery Method Room Air Pulse Ox (%) 95 Pulse Rate (60-100 beats/min) 135 H Number of Rests Taken 1 6th minute Oxygen Delivery Method Room Air Pulse Ox (%) 98 Pulse Rate (60-100 beats/min) 137 H Number of Rests Taken 1 Post-test Oxygen Deliv misty Method Room Air Pulse Ox (%) 98 Pulse Rate (60-100 beats/min) 102 H Dyspnea Daniel Scale (0-10) 4 Exertion Daniel Scale (6-20) 12 Full Laps Walked 8 Partial Lap, Number of Tiles Walked 34 Total Distance Walked (ft) 506 - Interpretation Interpretation: The patient was able to ambulate only 506 feet over the course of 6 minutes on room air with the assistance of a cane. The patient did require 3 diana aks to complete the 6 minute walk. No significant desaturation was noted, but patient did have persistent tachycardia with a peak heart rate of 137 bpm. These findings are consistent with a cardiovascul ar and musculoskeletal limitation exercise tolerance. - Recommendations Recommendations: No supplemental oxygen is indicated at this time. 10/03/171321 <Electronically signed by Say kenyno MD> Date Say Rosa MD CC: Date Dictated: 10/03/171320 Date Transcribed: 10/03/171320 Sign Writer Letterer Or Painter: Say Rosa Signed 07-Jul-2017 Operative Report Result: Comments: See Note; NOTES: [facility] Medical Records Department [address] [place] [address] Operative Report 07/07/17 1122 MR#: [id number] Acct: [id number] Name: RUBEN ZAPATA Rep #: [id number] : 1970 47 From: Harry Gagnon MD PCP: Naomi Colunga DO Status: [facility] Y Location: [place] [address] Problem List (1) DDD (degenerative disc disease), lumbosacral Status: [facility] (2) Radiculopathy of lumbosacral region Status: Chronic Report of Operation Date of Procedure: 07/07/17 Pre-Operative Diagnosis: Lumbosacral radiculopathy, lumbosacral degenerative disc disease, lumbosacral spinal stenosis Post-Operative Diagnosis: Lumbosacral radiculopathy, lumbosacral degenerative disc disease, lumbosacral spinal stenosis Surgery/Procedure Performed:: Caudal epidural steroid injection Description of Surgical Findings:: PROCEDURE: Caudal epidural steroid injection PREOPERATIVE DIAGNOSIS: Lumbosacral radiculopathy, lumbosacral degenerative disc disease, lumbosacral spinal stenosis POSTOPERATIVE DIAGNOSIS: Lumbosacral radiculopathy, lumbosacral degenerative disc disease, lumbosacral spinal stenosis ANESTHESIA: MAC COMPLICATIONS: None BLOOD LOSS: Minimal PROCEDURE IN DETAIL: History and physical today was reviewed. Risks and benefits of the procedure were explained. The patient understood, agreed to our procedure, and informed consent was obtained. IV inserted per r outine protocol. The patient was taken to the operating room, placed in a prone position with a pillow positioned underneath the abdomen. Under direct physician fluoroscopy on the lateral view the cauda l space was identified the skin and subcutaneous tissue were anesthetized approximately 3 cc of 1% lidocaine using a 25-gauge regular needle under direct visualization with fluoroscopy on the lateral vi ew using a 22-gauge 3-1/2 inch spinal needle the needle was advanced via the skin through the sacral hiatus tip of the needle passed through the sacrococcygeal ligament advanced approximately S4 area af ter negative aspiration for blood or CSF a total of 3 cc of contrast were injected to confirm correct placement of the needle as well as cephalad spread the spread was followed to approximately L5 area after confirmation AP as well as lateral view and repeated negative aspiration a total of 15 cc of preservative-free 0.125% Marcaine with 80 mg of Depo-Medrol were injected easily. The needles were then removed intact.The patient experienced no signs or symptoms intrathecal, intravascular injection. The patient experienced no paraesthesia. The procedure was completed without any apparent difficult, an y complication. The patient appeared to tolerate well. ASSESSMENT AND PLAN: This is a 47-year-old female with lumbosacral radiculopathy, lumbosacral degenerative disc disease, lumbosacral spinal stenos is status post caudal epidural steroid injection. The patient will continue his current medications. The patient will follow in approximately 2 weeks for possible repeat of the procedure if indicated. 07/07/17 1126 <Electronically signed by Harry Gagnon MD> Date Harry Gagnon MD CC: Harry Gagnon; Naomi Colunga DO Signed 07-Jul-2017 Fluor Guidance for Spine Inj Result: Comments: See Note; NOTES: [facility] Imaging Services [address] [place] [address] Fluor Guidance for Spine Inj MR#: [id number] Acct: [id number] Name: JANIS ZAPATA Rep #: [id number] : 1970 F 47 From: Fabrizio Meade MD PCP: Naomi Colunga DO Status: [facility] Study: Fluor Guidance for Spine Inj Date of Exam: 07/07/17 Exam# [id number] Ordering Dr: Harry Gagnon CLINICAL HISTORY: Female, 47 years old. Lower back pain PROCEDURE: EPIDUROGRAM - Caudal block FLUOROSCOPY TIME (if supplied): (0:27) minutes. 2 Images. RADIATION DOSAGE (If Supplied By Facility): CTDIvol = ( ) mGy, DLP = ( ) mGycm TECHNIQUE: Successful lumbar epidural steroid injection under fluoroscopic guidance. RAD/Fluor Guidance for Sp ine Inj IMPRESSION: Successful lumbar epidural steroid injection under fluoroscopic guidance. Electronically Signed: Fabrizio Meade MD at 7:19 EDT Tel , Service support [phone], CC: Harry Gagnon; Naomi Colunga DO Sign Writer Letterer Or Painter: Signed 21-Jun-2017 Discharge Instruction Result: Comments: See Note; NOTES: [facility] Medical Records Department [address] [place] [address] Discharge Instruction 06/20/17 2228 MR#: [id number] Acct: [id number] Name: JANIS ZAPATA Rep #: [id number] : 1970 46 From: Harry Cortez MD PCP: Naomi Colunga DO Status: [facility] ED Disposition - Plan for ED Patient: Disposition: Home or Assisted Living Chief Complaint : Diarrhea Instructions: Treating Diarrhea Prescriptions: Cephalexin [Keflex] 500 mg PO Q6 #30 cap Referrals: Naomi Colunga DO [Primary Care Provider] - 3- 5 Days Additional Instructions: Plenty of fl uids and rest. 10 mEq of potassium daily and have your potassium level rechecked next week. If continued diarrhea you need to follow-up your primary care physician and have a stool culture sent to ens ure this is in a bacterial diarrhea infection such as Clostridium difficile. Return to ER feeling worse. Also, your Urinalysis appears to be a urinary tract infection. A urine culture will be sent. He will be started on Keflex 1 pill 4 times a day for a week to treat his infection. What to do if you have Problems For any increased pain, shortness of breath, bleeding, nausea or vomiting, chest pa in, or any unexpected problems, contact your Primary Care Provider. Call [facility] ([phone]) or report to the closest Emergency Room. Call 911 if necessary. 06/21/17 0030 <Electron ically signed by Harry Cortez MD> Date Harry Cortez MD Cosigner Signature (If Indicated): Date CC: Naomi Colunga DO 21-Jun-2017 Emergency Department Summary Result: Comments: See Note; NOTES: [facility] Medical Records Department [address] [place] [address] Emergency Department Summary 06/20/17 1839 MR#: [id number] Acct: [id number] Name: JANIS ZAPATA Rep #: [id number] : 1970 46 From: Harry Cortez MD PCP: Naomi Colunga DO Status: REG ER - ER Visit Summary Date of Service: 06/20/17 Chief Complaint: Diarrhea History of Present Illness: The patient is a 46 F 3 of irritable bowel syndrome and ady-wqcbxso-psrjatkdl diabetes along with renal insufficiency. Patient states that she has had diarrhea for a week. 10 or more ep isodes a day. Denies any blood or melena. She has had diarrhea before but she has had never like this. She denies any recent hospitalization. She has had no exposure to C. difficile nor she ever had jason t before. She denies any recent antibiotics or any recent travel. Physical Examination: Appearing middle-aged female. Vital signs are stable afebrile. She does not look septic or toxic. She is in no ac jason distress. H EENT exam dry mucous membranes otherwise unremarkable. Neck nontender lungs clear to auscultation bilaterally. Heart regular rhythm rate about 110 no murmur. Abdomen soft nontender nondi stended no organomegaly or masses. Normal bowel sounds no peritoneal signs. Moving all 4 extremities. Neurovascularly intact. Neurologically she is awake alert without focal deficits. Test Results: CBC showed a white count 11.2 normal H AND H. BMP had a significant hypokalemia 2.7. BUN and creatinine of 15 and 1.21. UA showed 50-100 white cells 5-10 epithelial cells 2+ bacteria positive nitrates the urine was cloudy on gross examination and will be sent for culture and treated as UTI. Patient has not had any bowel movement the entire time in the ER so no stool culture could be sent for C. difficile . If her diarrhea continues this will need to be done. Emergency Department Course and Treatment: We treated with IV fluids. Screening labs be obtained along with C. difficile. Treatment Plan: Repeat exam she is doing very well at 2155. She will be given IV potassium and oral potassium and discharged to home. She has potassium supplement at home. She will be started on antibiotic for urinary tract i nfection. Disposition: Discharge Impression: Acute diarrhea of uncertain etiology Acute hypokalemia UTI with urine culture pending This note was generated with [employer] dictation software. It may con tain incorrect words, spelling, and punctuation that were not noted in review of the chart prior to signing ED Disposition - Plan for ED Patient: Chief Complaint: Diarrhea Referrals: Naomi Colunga, DO [Primary Care Provider] - What to do if you have Problems For any increased pain, shortness of breath, bleeding, nausea or vomiting, chest pain, or any unexpected problems, contact your Primary Care Provider. Call [facility] ([phone]) or report to the closest Emergency Room. Call 911 if necessary. 06/21/17 0030 <Electronically signed by Harry Cortez MD> Date ____ Harry Cortez MD Cosigner Signature (If Indicated): Date CC: Naomi Colunga DO 29-May-2017 Pulmonary Visit Report Result: Comments: See Note; NOTES: [facility] [address] [place] [address] OFFICE VISIT Date of Service: 05/29/17 MR#: [id number] Acct: [id number] Name: JANIS PURVIS Rep #: [id number] : 1970 Provider: [place]ia Brenner Age/Sex: 46/F [place] [facility] [place] [facility] [place] Status: Signed Assessment AND Plan 1. Pulmonary hypertension I27.20 Status Chronic Plan Possib ly worsened. Need to repeat pulmonary stress test to eval for possible exertional hypoxia given worsening shortness of breath. Consider repeating Echo. F/U with Dr Gonsalez in 2 months. 2. WATTS (dyspnea on exertion) R06.09 Status Chronic Plan Deteriorated. Repeat pulmonary stress test, follow up with [facility] 2 months. Plan for supplemental opxygen if indicated. Orders Orders: 3. NOY (obstructive sleep apnea ) G47.33 Status Chronic Plan Deteriorated. Patient continues non-compliance. Lengthy discussion of the co-morbid effects of non-compliance. She became tearful. Plan to follow up on needed dental work th is week. Plans to utilize CPAP as soon as possible. F/U [facility] in 2 months to continue to monitor. 4. Stage 1 mild COPD by GOLD classification J44.9 Status Chronic Plan Possibly worse, need PFT to evaluat e disease progression. Currently only on rescue inhaler. May require step up in therapy. F/U with [facility] in 2 months, hold of on inhaler changes until tests can be reviewed. 5. Continuous tobacco abuse Z7 2.0 Status Chronic Plan 11 minute discussion regarding smoking cessation. Patient admits biggest trigger for her is riding in the car. Plan to utilize e-cig to stop smoking. She has a large amount of lo ose tobacco currently. Plan to use the tubes she currently has and give the rest of her tobacco to her friend. No one in her family smokes, therefore they are very supportive of her sm oking cessation. Plan Detail Follow Up 2 Months ([facility]) HPI fu: Chief Complaint: Shortness of breath HPI Comments Details: This Patient presents the office today for routine follow-up on her obstructiv e sleep apnea, pulmonary hypertension and mild COPD. She is ambulatory, and currently on room air. She denies being seen in the ED urgent care for any respiratory illnesses since her last office visit. She has not been treated for any exacerbations of her COPD requiring antibiotics or steroids. He is not currently requiring any maintenance medications for her COPD, she does use a rescue inhaler. She reports that over the past few days she has noticed an increased need for her rescue inhaler due to increasing shortness of breath. She is not using her rescue inhaler 1-2 times daily. Is not very effe ctive in relieving her shortness of breath. She denies any cough or wheezing. She denies any sputum production or hemoptysis. She denies any fever, chills or body aches. See complete review of systems. Her shortness of breath has been progressing. She denies any conversational dyspnea, or dyspnea at rest. She does report that she is more easily exerted and feels as though the dyspnea has worsened. Sh e denies any chest pain or palpitations. She continues to smoke one half pack per day. Unfortunately, she reports that she has been noncompliant with her CPAP. She states that it is because she require s dental surgery. This was the same report that she provided at her last office visit. Last echo was completed on September 15, 2016 showing EF of 65% and an RVSP of 35 mmHg. Last pulmonary function test wa s completed on October 17, 2016 showed an FEV1 of 81% of predicted. Last pulmonary stress test was completed on October 04, 2016, the patient was able to ambulate 390 feet, did not become dizzy. She was not h ypoxic at any point during the test, does not require oxygen. She did experience tachycardia with the high heart rate of 144 bpm. Intake Vital Signs05/29/17 Height 5 ft 4 in 05/29/17 Weight: 338 lb In take Visit Reasons: fu DME Vendor: Ángel Accompanied by: Self Allergies amlodipine Allergy (Verified 05/29/17 12:26) severe edema atenolol Allergy (Verified 05/29/17 12:26) Swelling ciprofloxacin [From Cipro] Allergy (Verified 05/29/17 12:26) Itching ciprofloxacin HCl [From Cipro] Allergy (Verified 05/29/17 12:26) Itching estradiol [From Estrace] Allergy (Verified 05/29/17 12:26) Swelling meloxi cam Allergy (Verified 05/29/17 12:26) Itching niacin Allergy (Verified 05/29/17 12:26) Itching Medications Albuterol Aerosols [Ventolin Aerosols] 2.5 mg INHALATION Q4H PRN PRN 05/03/15 [History Confi rmed 05/29/17] Albuterol IH (ProAir) [Proair Hfa] 2 puff INHALATION Q4H PRN PRN 05/03/15 [History Confirmed 05/29/17] Linagliptin [Tradjenta] 5 mg PO DAILY 05/03/15 [History Confirmed 05/29/17] Losartan Potassium [Cozaar] 100 mg PO BID 05/03/15 [History Confirmed 05/29/17] Omeprazole [Prilosec] 40 mg PO BID 05/03/15 [History Confirmed 05/29/17] Topiramate [Topamax] 100 mg PO TID 05/03/15 [History Conf irmed 05/29/17] Imipramine HCl [Tofranil] 50 mg PO QHS 05/07/16 [History Confirmed 05/29/17] Potassium Chloride [Klor-Con] 20 meq PO BID 05/07/16 [History Confirmed 05/29/17] Cholecalciferol (Vitamin D3 ) [Vitamin D3] 6,000 unit PO DAILY 08/31/16 [History Confirmed 05/29/17] Levothyroxine [Synthroid] 50 mcg PO DAILY 08/31/16 [History Confirmed 05/29/17] Loratadine [Claritin] 10 mg PO DAILY 08/31/16 [Hi story Confirmed 05/29/17] Multivits,Ca,Minerals/Iron/FA [Women's Daily Formula Caplet] 1 tab PO DAILY 08/31/16 [History Confirmed 05/29/17] Tiotropium [place] [Spiriva 18 MCG] 1 puff INHALATION DAILY #1 inhaler 09/01/16 [Rx Confirmed 05/29/17] Aspirin [Aspir-Low] 81 mg PO DAILY 09/17/16 [History Confirmed 05/29/17] Magnesium 250 mg PO BID 09/17/16 [History Confirmed 05/29/17] Chlorthalidone 25 mg PO Q KRISH 04/03/17 [History Confirmed 05/29/17] Cyclobenzaprine [Flexeril] 10 mg PO BID PRN PRN 04/03/17 [History Confirmed 05/29/17] Diclofenac Sodium [Voltaren] 1 applic TP BID 04/03/17 [History Confirmed 05/29/17] Diltiazem HCl [Diltiazem 12Hr ER] 120 mg PO QHS 04/03/17 [History Confirmed 05/29/17] Duloxetine HCl 60 mg PO QHS 04/03/17 [History Confirmed 05/29/17] Hydrocodone/Acetaminophen [Hydrocodone-A cetamin 5-325 mg] 1 tab PO BID 04/03/17 [History Confirmed 05/29/17] PFSH Medical History Continuous tobacco abuse (Chronic) WATTS (dyspnea on exertion) (Chronic) Obstructive sleep apnea (Chronic) Adult-onset obesity (Chronic) Pulmonary hypertension (Chronic) Stage 1 mild COPD by GOLD classification (Chronic) Social History Smoking Status: Current ev misty day smoker second hand exposure: Yes alcohol intake: never substance use type: does not use caffeine: No what type of physical activity do you participate in: none Review of Systems Const CONSTITUTIONAL: Positive body ache, daytime sleepiness, sleeping in chair, fatigue and headache(s); negative anorexia, chills, fever(s), night sweats, oral thrush, stops breathing during sleep, weight l oss, weight loss, weight gain, frequent colds, seasonal allergies, other or orthopnea EETM Ear Nose Throat Mouth: Positive headache(s), hearing normal, dry mouth in morning, change in vision, sinus pain and sinus pressure; negative hard of hearing, hoarseness, itchy eyes, eye pain, swallowing Difficulty, ear pain, nose bleed, mouth pain, nasal congestion, nasal discharge, post nasal drip, sore throat or other Cardio Cardiovascular: Negative chest pain, chest pain at rest, chest pain with activity, irregular heart rhythm, edema, shortness of breath when lying down, palpitations, murmur or other Resp Respiratory: Positive as per HPI, shortness of breath, increase use of rescue inhalers, snoring and apnea; negative pain with cough, wheezing, chest congestion, cough, chest tightness, pain on inspirati on, inhalers or other Gastro Gastrointestional: Negative bloody stools, change in appetite, difficulty swallowing, reflux, hematemesis, melena stool, loose stool, constipation or other Genitourinary: Positive nocturia; negative blood in urine, pain with urination or other Musc Musculoskeletal: Positive body pain, back pain and neck pain; negative other Skin/Breast Skin/Breast: Positive dry skin and itching; negative rash, unusual bruising, breast lump or other Neuro Neurological: Positive restless legs, confusion and weakness; negative other Psych Psychocological: Positive abnormal sleep pattern and hopelessness; negative anxiety, thoughts of hurting self/others or other Lymph Lymphatic: Negative easy bleeding, easy bruising, swollen lymph nodes or other Exam Const Constitutional: Positive ob mitchell, conversant, cooperative, in no acute respiratory distress, well developed, well nourished and good hygiene Head Head: Positive normocephalic and atraumatic; negative cyanosis of lips/distal nose Ey es Eye: Positive clear conjunctiva and nystagmus; negative scleral abnormality Ears Ear: Positive hearing normal and external ears normal; negative hard of hearing Nose Nose: Positive external nose norm al and no nasal discharge; negative epistaxis Mouth Mouth: Positive oral mucosae normal, no lesions, poor dentition and crowded posterior oropharynx; negative post nasal drip, malodorous breath or oral thrush present Mallampati Score: III: Mallampati Score Neck Neck: Positive normal visual inspection, full ROM, trachea midline, thick neck and female neck greater than 37 cm (15 in); negative lymphadeno justa, JVD or tender Chest Wall Chest: Positive normal inspection of the chest and symmetric chest movement; negative increased A/P diameter Resp lung sounds: Positive diminished, clear to auscultation, normal expiratory time and normal respiratory effort; negative wheezes, wheeze present on forced exhalation, dullness to percussion, rales or rhonchi Cardio Cardiac: Positive regular rate, regular rhyt hm, S1 normal and S2 normal; negative murmur GI GI: Positive normal to inspection and obese Genitourinary: Positive deferred Musc Musculoskeletal: Positive ROM normal and using an assistive device fo r ambulation; negative kyphosis or scoliosis Skin Pulmonary Skin Exam: Positive intact; negative rash, lesion, ulcers, erythema, scaly or dermal atrophy Pulses Pulse: Yes pulses normal x4 extremities Ex tremities Extremities: Yes edema Location: lower extremity location: Bilateral leg swelling: pitting pitting: +1, Yes capillary refill normal, No clubbing, No cyanosis, No stasis dermatitis Neuro Neurol ogic: Yes conversant, Yes no focal neuro deficits, Yes cooperative, Yes normal cognition, Yes normal coordination, Yes understands questions, Yes normal concentration Lymph Lymphatic: No lymphadenopathy , No tenderness, No cervical adenopathy, No axillary adenopathy Psych Appearance: Positive grossly normal, eye contact and well kempt Mental Status: Positive mental status grossly normal Mood: Positive other (depressed) Affect: Positive tearful Office Procedures Smoking Cessation Time Spent greater than 10 minutes: Yes Coding Level of Care Code Off vis,est,level 4 Diagnoses Pulmonary hypertension I27.20 WATTS (dyspnea on exertion) R06.09 NOY (obstructive sleep apnea) G47.33 Stage 1 mild COPD by GOLD classification J44.9 Continuous tobacco abuse Z72.0 Additional Codes Time Spent - greater than 10 minutes: Yes ([id number]) 05/29/17 1347 <Electronically signed by [place] BURDICK> Date [place] ALMENDAREZC Cosigner Signature : Date (if applicable) CC: Naomi Colunga DO 16-Apr-2017 OT Functional Capacity Eval Result: Comments: See Note; NOTES: [facility] [address] [place] [address]. [address] [place] [address] Fax REHABILITATION SERVICES INI TIAL EVALUATION MR#: [id number] Acct: [id number] Name: JANIS ZAPATA Rep #: [id number] : 1970 46 From: Kelly Valdez OTR/L, CHT Referring DrYaneth: Naomi Colunga DO Status: REG RCR Insuranc e: [facility] Eval Date: SELF PAY INSURANCE HP OT Functional Capacity Eval - Task Lift Floor (Occasional 1-33% of Day): 20# Floor (Frequent 34-66% of Day): 10# Floor (Constant 67-100% of Da y): N/A Floor PDL: Light Knee (Occasional 1-33% of Day): 20# Knee (Frequent 34- 66% of Day): 10# Knee (Constant 67-100% of Day): N/A Knee PDL: Light Waist (Occasional 1-33% of Day): 20# Waist (Frequent 3 4-66% of Day): 10# Waist (Constant 67-100% of Day): N/A Waist PDL: Light Shoulder (Occasional 1-33% of Day): 20# Shoulder (Frequent 34-66% of Day): 10# Shoulder (Constant 67-100% of Day): 0# Shoulder PD L: Light Overhead (Occasional 1-33% of Day): 15# Overhead (Frequent 34-66% of Day): 8# Overhead (Constant 67-100% of Day): N/A Overhead PDL: Sedentary-Light - Work Activity/Posture Bending: Occasional Ability (1-33% of day) Comments: low occasional ability with external support Squatting: Occasional Ability (1-33% of day) Comments: low occasional ability with external support Kneeling: No Ablility (0 % of day) Reaching out: Frequent Ability (34-66% of day) Reaching up: Occasional Ability (1-33% of day) Sitting: Frequent Ability (34-66% of day) Walking: Occasional Ability (1-33% of day) Comments: low occasional ability Standing: Occasional Ability (1-33% of day) Comments: low occasional ability with external support - Reference Duration Sedentary Sedentary Light Light Light Medium Medium Medium H eavy V misty Heavy Heavy - Patient Information Height: 1.63 m Weight:: 149.685 kg Hand Dominance: right - Medical History Medical History Including Restrictions: pt states she has smoked cigarettes si nce the age of 13 and currently smokes 1/2 a pack a day. Pt reports that in 1998 she had a partial hysterectomy and bladder tie up. Pt states in 2003 she had neck laminectomy surgery and in 2007 she had back surgery with plate placed. Unsure of what level. pt states has had right carpal tunnel surgery in 2009. Pt states she needs a left capal tunnel surger and left hip replacement. Pt states she can n ot have her hip sx until she can lose some weight. - Diagnoses Diagnoses: Asthma dx 1988. Migraines dx 1999. Spinal Stenosis dx 1999. Degenerative Disc Disease dx 1999. Severe Osteoarthritis dx 1999. B one spurs dx 1999. High blood pressure dx 2004. High cholesterol dx 2004. Diabetic dx 2004. Fibromyalgia dx 2004. Sleep Apnea dx 2007. Neuropathy dx 2009. Acid reflux dx 2009. Gastritris dx 2011. Sciati c dx 2011. Rhinitis dx 2012. Eczema dx 2012. Arrhythmia dx 2013. Hypthyroid dx 2016. Ambilical hernia dx 2016. Pulmonary hypertension dx 2016. COPD dx 2016. Kidney failure dx 2015 - Symptoms Symptoms: Joint Pain. Bilateral hip pain. Nubness/tingling in legs, feet. Spasum. limited mobility. SOB - Pain Pain: Pt reports pain is 4/10 and with activity 8/10. Pt states she is currently 4/10 with taking he r pain medication. 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 she states part weighted any where from real light as pediatrician active practice blads or pediatrician active practice deck. Job required standing, lifing and bending. Pt states she left this job due to pain and the inability to perform her job duties safely. - Behavioral Behavioral: pt was coorperative during the assessment. - ADLS ADLS: Pt states she lives with her , son future [id number] and future step granddaughter. Home is a one story with basement where pt resides with , son and his future family is on first floor. Pt states there are 11 steps with two rails up to the porch but no rails to step into the house. Pt states her son is remodeling bathroom with a walk-in shower with seat built into it a nd with future grab bars. Pt states she does have to climb the 15 steps to first floor to do laundry and cooking. Pt states she does go grocery shopping only if there is a electirc chair avalible. Pt dr banks independently. 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 pt states she does have adaptive equipment to use for toliting (toilet wi pe aide), quantitative strategy analyst, bed side comode, elevated toilet seat, sock aide, long handleled shoe horn, spone and sock aid to assist her with bathing and dressing, pt has manual wheel chair, walker, quad cane. - Physical Examination ROM: pt demo with limited left hip flex, abd and ext. limited due to pain-. All other ROM WFL Strength: pt demo grossly throughout 4/5 UB and LB strength Right Insulation Blower Strength Tuthill ge: 63.33 Right Insulation Blower Strength Percentile: 28% Left Insulation Blower Strength Average: 50.00 Left Insulation Blower Strength Percentile: 17% Right Lateral Pinch Average: 10.00 Right Lateral Pinch Percentile: 25% Left Lateral Pin ch Average: 10.00 Left Lateral Pinch Percentile: 25% Right Tripod Pinch Average: 6.00 Right Tripod Pinch Percentile: <10% Left Tripod Pinch Average: 7.33 Left Tripod Pinch Percentile: 10% Sensat ion: bilateral sensation. 2.83 all digits- demonstrating sensation in hands/digits are WNL Fine Motor: 9-hole peg test. right 21.30 sec 25%. left 21.86 sec. 50% Balance: No loss of balance was noted dur ing the assessment. - Non Material Handling Activities Bending: pt demo the ability to bend forward three times and then 5 times. pt required external support during this activity. pt repoted pain shoo ting from hip down to knee. pt reported pain 8/10. low occasional ability. Squatting: pt demo the ability to squat three times and then 5 times- she was unable to complete ten times or ten times rapidly . Pt did use external support on both sides for this tasks. pt reported bilateral knee pain increase from 4/10 to 7.5/10. low occasional ability Kneeling: No ability Reaching out/up: pt demo the ability to reach out three times, ten times and ten times rapidly while standing. frequent ability. pt demo the ability to reach up three times and then 7 times. pt reported low back pain increase from 4/10- 8 /10. pt was unable to reach up ten times rapidly. low occasional ability Walking: pt ambulated 570 feet within our facility. pt abulated with use of a quad cane and antalgic gait pattern. pt can ambulat e on a low occasional basis. Standing: Pt demo the ability to stand for 4 min. she did utilize external support for following 2 min. pt does stand off of left LE. pt can stand on a low occasional basis. Sitting: pt demo the ability to sit for 40 min with no expressed or apparent discomfort. pt can sit on a frequent basis. Climbing Stairs: pt ascended and descended 10 steps using both hand rails and wo uld climb with right leg first and descend with left leg down. - Dynamic Occasional Lifting Capacity Floor Lift: pt demo the ability to lift 15# comfortably and 20# maximally. Knee Lift: pt demo the ab ility to lift 15# comfortably and 20# maximally. Waist Lift: pt demo the ability to lift 15# comfortably and 20# maximally. Shoulder Lift: pt demo the ability to lift 15# comfortably and 20# maximally. Overhead Lift: pt demo the ability to lift 15# comfortably and 15# maximally. Carrying: pt amb. with quad cane and was unable to carry with bilateral hands. <Electronically signed by Kelly hawthorne OTR/L, CHT> 04/16/17 1612 CC: Naomi Colunga DO Signed For Medicare only, by signing this I certify the plan of care. Physicians Signature Date 03-Apr-2017 Emergency Department Summary Result: Comments: See Note; NOTES: [facility] Medical Records Department [address] [place] [address] Emergency Department Summary 04/03/17 1527 MR#: [id number] Acct: [id number] Name: JANIS ZAPATA Rep #: [id number] : 1970 46 From: Ana Paula Mendieta MD PCP: Naomi Colunga DO Status: DEP ER - ER Visit Summary Date of Service: 04/03/17 Chief Complaint: Bilateral leg weaknes s History of Present Illness: The patient is a 46 F who reports that on she went outside to smoke and sat in a chair. When she went to stand up her legs were too weak to get up. She state s she could feel her legs, they were not numb. She states her brain would not tell her legs to move. She states her and son tried to pull her to the standing position but she could not support a ny weight. She had to be placed into a wheelchair and moved inside. Patient states after a couple hours she can start to move her legs again. She has a history of chronic back pain and has had prior edie jasmin. She denies any recent back injury or change in her chronic back pain. States her legs feel somewhat heavy at this time. She is also complaining of a cyst to the buttock that needs drained. She fir st noticed this a week ago. She did have a pilonidal cyst drained by Dr. Eng approximately 3 months ago. Physical Examination: Blood pressure is 189/127, otherwise vitals are normal. Head neck examina tion is unremarkable. Heart is regular rate and rhythm. Lung sounds are clear. Abdomen is soft, obese, nontender. Patient easily moves to the seated upright position and she has no significant tendernes s with palpation over her back. Lower extremity examination reveals that she is able to pick both legs up off the bed, flex and extend at the hips and knees. She has good distal pulses. She has good sen sation on testing. Patient is rolled to her side where a small scab is noted on the left buttock. I appreciate no fluctuance or fluid collection. Patient states that the cyst feels much smaller now than previously. Test Results: CBC and chemistry studies normal. CK level is obtained in normal. Lumbar spine x-rays are unchanged in appearance from prior. Postoperative changes are noted. Pelvis x-rays r eveal mild degenerative arthropathy to the left hip. Emergency Department Course and Treatment: Patient was given morphine, Zofran, and IV fluids. On repeat evaluation patient is resting comfortably. B lood pressure is 126/89. I discussed the case with Dr. Colunga, her primary care physician. Patient will be discharged to follow-up as an outpatient. I did advise her if this ever occurs again, she is to come in to be evaluated at that time. Treatment Plan: [] Disposition: Discharge Impression: Reported leg weakness, improved This note was generated with [employer] dictation software. It may contain incorrect words, spelling, and punctuation that were not noted in review of the chart prior to signing ED Disposition - Plan for ED Patient: Chief Complaint: Lower Extremity Injury Referrals: Naomi Colunga DO [Primary Care Provider] - What to do if you have Problems For any increased pain, shortness of breath, bleeding, nausea or vomiting, chest pain, or any unexpected problems, contact your Primary Care Provider. Call [facility] ([phone]) or report to the closest Emergency Room. Call 911 if necessary. 04/03/17 1720 <Electronically signed by Ana Paula Mendieta MD> Date Ana Paula Mendieta MD Cosigner Signature (If Indicated): Date CC: Naomi Colunga DO 03-Apr-2017 Discharge Instruction Result: Comments: See Note; NOTES: [facility] Medical Records Department [address] [place] [address] Discharge Instruction 04/03/17 1532 MR#: [id number] Acct: [id number] Name: JANIS ZAPATA Rep #: [id number] : 1970 46 From: Ana Paula Mendieta MD PCP: Naomi Colunga DO Status: REG ER ED Disposition - Plan for ED Patient: Disposition: Home or Assisted Living Chief Complaint : Lower Extremity Injury Instructions: ED Weakness [facility] Referrals: Naomi Colunga DO [Primary Care Provider] - 1 Week What to do if you have Problems For any increased pain, shortness of breath, bl eeding, nausea or vomiting, chest pain, or any unexpected problems, contact your Primary Care Provider. Call [facility] ([phone]) or report to the closest Emergency Room. Call 911 if necessar y. 04/03/17 1534 <Electronically signed by Ana Paula Mendieta MD> Date Ana Paula Mendieta MD Cosigner Signature (If Indicated): Date CC: Naomi Colunga DO 03-Apr-2017 Lumbar Spine 2 or 3 Views Result: Comments: See Note; NOTES: [facility] Imaging Services [address] [facility] [address] [place] [address] Lumbar Spine 2 or 3 Views MR#: [id number] Acct: [id number] Name: JANIS ZAPATA Rep #: [id number] : 1970 F 46 From: Louise Francis MD PCP: Naomi Colunga DO Status: REG ER Study: Lumbar Spine 2 or 3 Views Date of Exam: 04/03/17 Exam# [id number] Ordering Dr: Ana Paula Mendieta MD STUDY: X-RAY - LUMBAR SPINE REASON FOR EXAM: Female, 46 years old. Low back pain without known injury. TECHNIQUE: 3 view(s) of the lumbar spine were obtained. COMPARISON: July 15, 2016 FINDINGS: Normal lumbar lordosis. There is no substantial scoliosis. There is a normal alignment of the vertebrae. Patient has had discectomy at L5-S1 with surgical fusion. Interpedic ular screws and rods are visible at this level. There is multilevel spondylosis of the lumbar and thoracic spine. There is multilevel degenerative arthropathy of the lumbar spine. Normal disc space heig hts. There is no demonstrated fracture. The soft tissue structures are unremarkable. RAD/Lumbar Spine 2 or 3 Views IMPRESSION: 1. Unchanged post operative appearance of lumbar spine at L5-S1. 2. Multilevel degenerative arthropathy and spondylosis of the thoracic and lumbar spine. Electronically Signed: Louise Francis MD at 14:12 DRE Henning , Service support , CC: Ana Paula Mendieta MD; Naomi Colunga DO Sign Writer Letterer Or Painter: Signed 03-Apr-2017 Pelvis 1 or 2 Views Result: Comments: See Note; NOTES: [facility] Imaging Services [address] [place] [address] Pelvis 1 or 2 Views MR#: [id number] Acct: [id number] Name: JANIS ZAPATA Rep #: [id number] : 1970 F 46 From: Louise Francis MD PCP: Naomi Colunga DO Status: REG ER Study: Pelvis 1 or 2 Views Date of Exam: 04/03/17 Exam# [id number] Ordering Dr: Ana Paula Mendieta MD STUDY: X-RAY - PEL VIS REASON FOR EXAM: Female, 46 years old. Pelvic pain. TECHNIQUE: One view of the pelvis was obtained. COMPARISON: CT of the pelvis dated November 06, 2016. FINDING S: There is a non-specific bowel gas pattern. Normal visualized soft tissue structures. Bowel gas obscures the anatomy of the iliac wings and sacrum. Normal visualized bilateral superior and inferior p ubic rami. There are degenerative changes of the pubic symphysis with articular narrowing and sclerosis. Normal ischial tuberosities. Normal visualized right femoral head. Normal right acetabulum. Ther e is mild articular joint space narrowing of the right hip. There are osteoarthritic changes of the left femoral head with marginal osteophyte formation. There is osteoarthritic spur formation of the l eft acetabular rim. There is mild articular joint space narrowing of the left hip. The patient has had surgical fusion of L5 and S1 vertebral segments. ORDER #: 2 RAD/Pelvis 1 or 2 Views IMPRESSION: Mild degenerative arthropathy of the left hip. Electronically Signed: Louise Francis MD at 14:15 EST , Service support [phone], CC: Ana Paula Mendieta MD; Naomi Colunga DO Sign Writer Letterer Or Painter: Signed 10-Feb-2017 Operative Report Result: Comments: See Note; NOTES: [facility] Medical Records Department [address] [place] [address] Operative Report 02/10/17 1112 MR#: [id number] Acct: [id number] Name: RUBEN ZAPATA Rep #: [id number] : 1970 46 From: Harry Gagnon MD PCP: Naomi Colunga DO Status: REG SDC Y Location: [place] [address] Report of Operation Date of Procedure: 02/10/17 Pre-Operative Diagnosis : Osteoarthritis of the left hip, left greater trochanteric bursitis. Post-Operative Diagnosis: Arthritis of the left hip, left greater trochanteric bursitis Surgery/Procedure Performed:: Left hip great er trochanteric bursa steroid injection under fluoroscopy guidance Description of Surgical Findings:: Preoperative diagnosis: Osteoarthritis of the left hip, left greater trochanteric bursitis. Postop erative diagnosis: Osteoarthritis of the left hip, left greater trochanteric bursitis. Procedure: left hip greater trochanteric bursa steroid injection under fluoroscopy guidance Anesthesia: MAC Comp lications: None Blood loss: Minimal Procedure in detail: History and physical if there is a risk and benefits of procedure explained the patient understood a good procedure informed consent was obtai blanca IV inserted for routine precautions taken to the operating room placed in the supine position the left hip area was prepped and draped in a sterile fashion using iodine 3 and nephroscopy guidance of AP view the left hip and greater trochanter area was visualized the skin and subcutaneous tissue also has approximately 3 cc of 1% lidocaine using a 25-gauge regular needle under direct physician fluor oscopy on AP view using a 22-gauge 5 inch spinal needle was advanced by the skin with the previous maneuver and directed towards the left greater trochanter once the pain he was in the vicinity of the g reater trochanteric bursa and in contact with the bone the needle pulled the proximal 2 mm of the bone after negative aspiration for blood a total of 2 cc of contrast were injected to confirm correct pl acement of the needle as well as an elliptical shape around the greater trochanteric bursa after repeated negative aspiration confirmation of AP as well as oblique view a total of 10 cc of preservative- free 0.25% Marcaine with 80 mg of the portal was injected easily the needle was then removed intact patient experienced no signs or symptoms of intrathecal or intravascular injection, patient experience d no paresthesia of the procedure was completed without any apparent difficulty complication the patient appeared to tolerate well. Assessment and plan: This is a 46-year-old female with osteoarthriti s of the left hip greater trochanteric bursitis status post left hip greater trochanteric bursa steroid injection under fluoroscopy guidance she will continue her current medications patient will follow approximately 2 weeks for reevaluation. 02/10/17 1119 <Electronically signed by Harry Gagnon MD> Date Harry Gagnon MD CC: Harry Gagnon; Naomi Colunga DO Signed 10-Feb-2017 Inj/Asp Aakash Jt Should/Hip/Knee Result: Comments: See Note; NOTES: [facility] Imaging Services [address] [place] [address] Inj/Asp Aakash Jt Should/Hip/Knee MR#: [id number] Acct: [id number] Name: JANIS ZAPATA Rep #: [id number] : 1970 F 46 From: Ministerio Vela MD PCP: Naomi Colunga DO Status: [facility] Study: Inj/Asp Aakash Jt Should/Hip/Knee Date of Exam: 02/10/17 Exam# [id number] Ordering Dr: Harry jama MD STUDY: X-RAY - LEFT HIP REASON FOR EXAM: Female, 46 years old. Left hip injection TECHNIQUE: Radiological exam, hip, unilateral, with pelvis when performed; 1 view COMPARISON: None. FINDINGS: Intraoperative control following needle placement in the greater trochanteric bursa injection of contrast material. RAD/Inj/Asp Aakash Jt Should/Hip/Knee IMPRESSION: Intraoperative control during placement of a needle in the greater trochanteric bursa Electronically Signed: Ministerio Vela MD, FACR at 15:02 EST , Service support , CC: Harry Gagnon; Naomi Colunga DO Sign Writer Letterer Or Painter: Signed 18-Dec-2016 SCREENING MAMM (CAD), BILAT Result: Comments: See Note; NOTES: [facility] Imaging Services [address] [place] [address] SCREENING MAMM (CAD), BILAT MR#: [id number] Acct: [id number] Name: JANIS ZAPATA Rep #: [id number] : 1970 F 46 From: Matt Beckwith MD PCP: Naomi Colunga DO Status: [facility] CLI Study: SCREENING MAMM (CAD), BILAT Date of Exam: 12/18/16 Exam# [id number] Ordering Dr: Jd Colunga DO MAMMOGRAPHY - BILATERAL SCREENING REASON FOR EXAM: Female, 46 years old. Routine annual screening examination. PERTINENT HISTORY: Grandfather with breast cancer. TECHNIQUE: Digital bilateral b reast jose (3D mammographic acquisition) in the CC and MLO projections. 2-D mediolateral oblique (MLO) and craniocaudad (CC) views of both breasts were obtained. CAD: Full Field Digital Mammography with Computer Added Detection was performed. COMPARISON: Comparison is made with prior outside examination dated December 18, 2015. FINDINGS: Breast Composition: The b reasts are heterogeneously dense, which may obscure small masses. There are no dominant masses or suspicious calcifications. Scattered stable bilateral calcifications. No focal clustering is seen. No other significant abnormalities are identified. There has been no significant change since the prior study. HPBI/SCREENING MAMM (CAD), BILAT IMPR ESSION: Stable bilateral screening mammogram. Yearly follow-up mammogram recommended. (A) ASSESSMENT CATEGORY: BIRADS Category 2: Benign. A letter regarding these r esults will be sent to the patient by the facility within 30 days. Approximately 10% of breast cancers are not detected by mammography. A normal mammogram should not delay biopsy of a clinically suspic ious abnormality. [id number] Electronically Signed: Matt Beckwith MD at 12:54 EDT Tel [phone], Service support , CC: Naomi Colunga DO Sign Writer Letterer Or Painter: Signed 16-Nov-2016 Echocardiogram Complete Result: Comments: See Note; NOTES: [facility] Cardiovascular Services [address] [place] [address] Echo Complete W/ Contrast 11/15/16 1357 MR#: [id number] Acct: [id number] Name: JANIS PURVIS Rep #: [id number] : 1970 46 From: Mukesh Gutierrez MD Attending Dr: Sharda Wylie PA-C Status: REG CLI Ordering Dr: Sharda Wylie PA-C Date: 11/15/16 Location: [facility] Sex: F C Admitted: Reason For Study: NOY Procedure This was a 2D Doppler, Color Flow transthoracic echocardiogram. Technically Difficult due to patient body habitus. Exam performed in department. Left Ventricle Mild concentric left ventricular hypertrophy. The estimated ejection fraction is 65 %. Normal diastology for age. No regional wall motion abnormalities noted. Right Ventricle Normal size and thickness. Nor mal systolic function. Atria Normal left atrium. Normal right atrium. Normal atrial septum. Mitral Valve The mitral valve is structurally normal. No prolapse or stenosis seen. Trivial mitral valve ins ufficiency. Tricuspid Valve Normal tricuspid valve. Trivial tricuspid valve insufficiency. Right ventricular systolic pressure estimated to be 35 mmHg. Aortic Valve Trisinus/trileaflet aortic valve. N ormal aortic valve. Pulmonic Valve The pulmonic valve is not well visualized. Great Vessels Normal aortic root. Normal arch. Normal inferior vena cava. Inferior vena cava collapse with sniff. Pericard ium/Pleural No pericardial effusion. Medication Definity0.3ml given slow IV push to enhance endocardial definition. MMode/2D Measurements AND Calculations LVIDd: 4.0 cm IVSd: 1.4 cm LVOT diam: 2.0 cm LVIDs: 3.3 cm LVPWd: 1.5 cm LVOT area: 3.2 cm2 FS: 17.8 % Ao root diam: 2.7 cm LA dimension: 3.3 cm Time Measurements M V dec time: 0.16 sec Doppler Measurements AND Calculations MV E max karon: 87.1 cm/sec Lat Peak E' Karon: 11.3 cm/sec Med Peak E' Karon: 12.5 cm/sec MV A max karon: 66.2 cm/sec E/E' lat: 7.7 E/E' med: 7.0 MV E /A: 1.3 MV V2 max: 108.8 cm/sec MV P1/2t max karon: 108.8 cm/sec Ao V2 max: 137.7 cm/sec MV max P.7 mmHg MV P1/2t: 68. 3 msec Ao max P.6 mmHg MV V2 mean: 62.7 cm/sec MV dec slope: 466.5 cm/sec2 Ao V2 mean: 87.0 cm/sec MV mean P.9 mmHg MVA(P1/2t): 3.2 cm2 Ao mean P.5 mmHg MV V2 VTI: 20.9 cm Ao V2 VTI: 22.7 cm MVA(VTI): 3.6 cm2 KIKA(I,D): 3.4 cm2 KIKA(V,D): 3.0 cm2 LV V1 max: 129.5 cm/sec SV(LVOT): 76.1 ml PA V2 max: 114.6 cm/sec LV V1 max P.7 mmHg LV V1 mean P.4 mmHg LV V1 mean: 83.7 cm/sec LV V1 VTI: 23.8 cm TR max karon: 273.2 cm/sec TR ma x P.8 mmHg Interpretation Summary Mild concentric left ventricular hypertrophy. The estimated ejection fraction is 65 %. Normal diastology for age. Trivial mitral valve insufficiency. Trivial tric uspid valve insufficiency. Right ventricular systolic pressure estimated to be 35 mmHg. The study was technically difficult. There is no comparison study available. Contrast injection was performed. _ Ordering Physician: Sharda Wylie PA-C Referring Physician: Carlotta Sharp Performed By: Marko Novoa RCS 11/16/16 1153 Date Mukesh Gutierrez MD CC: Sharda Wylie PA-C; Naomi Colunga DO Date Dictated: 11/15/16 1357 Date Transcribed: 11/16/16 1153 Sign Writer Letterer Or Painter: Signed 10-Nov-2016 Consultation Result: Comments: See Note; NOTES: [facility] Medical Records Department [address] [facility] [address] [place] [address] Consultation 11/06/16 1831 MR#: [id number] Acct: [id number] Name: JANIS ZAPATA Rep #: [id number] : 1970 46 From: Kerrie Eng MD PCP: Naomi Colunga DO Status: DEP ER Y Location: ED - Consult Date of Consult: 11/06/16 - Reason for Consult Patient presents with large right buttock abscess as seen by CT scan. I have reviewed the CT scan personally. She had been having right buttock pain for several days. Noted low grade subjective temperatures. She states that she i s diabetic. PAST MEDICAL HISTORY hypertension obesity prediabetes PAST SURGICAL HISTORY BACK SURGERY HX CARPAL TUNNEL CHOLECYSTECTOMY HX age 13: COLONOS W/REM POLYP SNARE FISSURE;SPHINCTEROTOMY/ANAL H YSTERECTOMY HX INJECTION Comment: back injections NECK SURGERY HX PLACEMENT, BILE DUCT STENT CURRENT MEDICATIONS: losartan (COZAAR) 50 mg tablet CALCIUM CARBONATE/VITAMIN D3 (VITAMIN D-3 ORAL) Magnesiu m 250 mg tab Take 250 mg by mouth. Disp: Rfl: multivitamin tablet Take 1 tablet by mouth once daily. Disp: Rfl: traMADol (ULTRAM) 50 mg tablet topiramate (TOPAMAX) 100 mg tablet Take 100 mg by mouth. Di sp: Rfl: rOPINIRole Hydrochloride 3 mg tablet Take 3 mg by mouth. Disp: Rfl: Omeprazole 40 mg capsule Take 40 mg by mouth. Disp: Rfl: losartan (COZAAR) 100 mg tablet Disp: Rfl: aspirin, enteric coated ( ASPIRIN, ENTERIC COATED) 81 mg EC tablet lasix ALLERGIES: amlodipine, atenolol, cipro, estradiol, meloxicam, niacin PERSONAL HISTORY: SOCIAL HISTORY Social History Marital status: Spouse name: Years of education: Number of children: Social History Main Topics Smoking status: Current Every Day Smoker Packs/day: 1.00 Years: 0.00 Types: Cigarettes REVIEW OF SYMPTOMS: has had low grade temperat ures, denies weight loss or appetite changes, denies chest pain, the remainder of the ROS is noncontributory PHYSICAL EXAMINATION: General: The patient is 46 year old female, well nourished, well hydra germain in no acute distress. oriented to time, place, and person. VITALS: Blood pressure 154/86, pulse (!) 140, height 162.6 cm (5' 4), weight (!) 152 kg (335 lb). Body mass index is 57.5 kg/(m HE ENT: normocephalic, atraumatic, mucus membranes moist Respiratory: normal breath sounds, no adventitial sounds noted Cardiac: regular Abdominal exam: soft and benign, obese, difficult to determine if an y masses or organosplenomegaly due to patient's body habitus Extremities: no clubbing, cyanosis or edema. No adenopathy. Other: +non-tender, non-thrombosed external hemorrhoids. +induration, visible ful lness and tenderness to palpation of right medial buttock without erythema or drainage IMPRESSION: right buttock abscess PLAN: Will place drain using local anesthesia and IV sedation by ED physician. I have explained risks/benefits of procedure to patient, she understands and agrees to proceed. PROCEDURE NOTE: Preop dx: right buttock abscess Postop dx: same Procedure - placement of drain in right b uttock abscess Anesthesia - local 1% xylocaine with epinephrine, IV sedation by Dr. Barron Specimen - aerobic cultures of abscess fluid EBL - minimal Description - After informed consent was obtained, th e patient was placed in the lateral decubitus position. Appropriate time out protocol was followed. The patient was given IV sedation. The patient's right buttock was prepped with a betadyne skin prepar ation. Appropriate surgical drapes were placed. A needle was used to identify the location of the abscess cavity given the patient's body habitus, did not make the site obvious. Once the abscess cavity was located, the skin and subcutaneous tissues at the site were infiltrated with local anesthetic. A skin incision was made with an 11 blade scalpel. Blunt dissection was then done to enter into the abs cess cavity, from which a large amount of foul smelling purulent material was obtained. The catheter was inserted into this cavity. It was sutured to the skin using nylon suture. The cavity was then irr igated with hydrogen peroxide solution. The cavity was compressed to allow evacuation of the fluid contents as much as possible. Gauze dressings were then applied. Patient tolerated procedure well. 09/21 <Electronically signed by Kerrie Eng MD> Date Kerrie Eng MD Cosigner Signature (if applicable): Date CC: Naomi Colunga DO Signed 07-Nov-2016 Emergency Department Summary Result: Comments: See Note; NOTES: [facility] Medical Records Department [address] [place] [address] Emergency Department Summary 11/06/161940 MR#: [id number] Acct: [id number] Name: JANIS ZAPATA Rep #: [id number] : 1970 46 From: Antione Barron MD PCP: Naomi Colunga DO Status: DEP ER - ER Visit Summary Date of Service: 11/06/16 Chief Complaint: [] History of Present I llness: The patient is a 46 F [] Physical Examination: [] Test Results: [] White count was only 22,000 glucose 143 and creatinine 1.24 lactate stable at 1.4. CT scan with IV contrast showed a 2.6 x 3. 2 x 3.2 cm perirectal abscess with some inflammation about 12 cm into the right buttock with air. Emergency Department Course and Treatment: [] She had morphine and Zofran 6 mg each which rapidly helpe d. Weighing of been notified and requested moderate sedation to help the patient. Under sedation I gave her risk and benefits including apnea pain and she agreed Dr. Desouza did not I AND D please see her report. For her conscious sedation and moderate sedation she was given propofol to 40 mg aliquots which markedly helped she sedated well and spoke with this through had stable vital signs stable oxygen ation and awoke normally. Treatment Plan: [] And had wound cultures obtained by Dr. Leggett. And discharged with Flagyl 500 mg 30 clindamycin 300 mg 40 and [place] is 20 is to recheck from Dr. Eng's note w ithin the next 2-3 days. Recheck sooner suggested by me for any worse pain fever chills nausea vomiting discharge Disposition: [Home] Impression: [] #1 acute perirectal abscess with I AND D by surgeon , #2 procedure sedation by ED physician ED Disposition - Plan for ED Patient: Chief Complaint: Abscess Instructions: ED Abscess IandD Prescriptions: Hydrocodone Bitart/Apap 5-325 [[place] 5/325] 1 - 2 tablet PO Q4H PRN PRN #20 tablet PRN Reason: Pain Clindamycin HCl [Cleocin] 300 mg PO Q6H #40 capsule Metronidazole [Flagyl] 500 mg PO Q8 #30 tablet Referrals: Kerrie Eng MD [STAFF PHYSICIAN] - 2 Days What to do if you have Problems For any increased pain, shortness of breath, bleeding, nausea or vomiting, chest pain, or any unexpected problems, contact your Primary Care Provider. Call [facility] ([phone]) or report to the closest Emergency Room. Call 911 if necessary. 11/07/16 0154 <Electronically signed by Antione Barron MD> Date Antione Barron MD Cosigner Signature (If Indicated): Date CC: Naomi Colunga DO 06-Nov-2016 Discharge Instruction Result: Comments: See Note; NOTES: [facility] Medical Records Department [address] [place] [address] Discharge Instruction 11/06/161932 MR#: [id number] Acct: [id number] Name: JANIS ZAPATA Rep #: [id number] : 1970 46 From: Antione Barron MD PCP: Naomi Colunga DO Status: REG ER ED Disposition - Plan for ED Patient: Chief Complaint: Abscess Instructions: ED Abscess IandD Prescriptions: Hydrocodone Bitart/Apap 5-325 [[place] 5/325] 1 - 2 tablet PO Q4H PRN PRN #20 tablet PRN Reason: Pain Clindamycin HCl [Cleocin] 300 mg PO Q6H #40 capsule Metronidazole [Flagyl] 500 mg PO Q 8 #30 tablet Referrals: Kerrie Eng MD [STAFF PHYSICIAN] - 2 Days What to do if you have Problems For any increased pain, shortness of breath, bleeding, nausea or vomiting, chest pain, or any unexpe cted problems, contact your Primary Care Provider. Call [facility] ([phone]) or report to the closest Emergency Room. Call 911 if necessary. 11/06/161935 <Electronically signed by Antione Barron MD> Date Antione Barron MD Cosigner Signature (If Indicated): Date CC: Naomi Colunga 06-Nov-2016 Discharge Instruction Result: Comments: See Note; NOTES: [facility] Medical Records Department [address] [place] [address] Instructions for Home/Discharge Instructions 11/06/161828 MR#: [id number] Acct: [id number] Name: JANIS ZAPATA Rep #: [id number] : 1970 46 From: Kerrie Eng MD PCP: Naomi Colunga DO Status: REG ER Discharge Diet: No Restrictions Discharge Activity: Return to Normal Acti vity, May not drive while taking narcotic pain medications. Additional Dressing/Incision Instructions:: Can clean area in the shower, will have drainage, therefore where proper padding to avoid drainage on clothing Allergies/Adverse Reactions: Allergies amlodipine Allergy (Verified 05/07/16 08:49) severe edema atenolol Allergy (Verified 05/07/16 08:48) Swelling ciprofloxacin [From Cipro] Allergy (Natasha ified 05/07/16 08:48) Itching ciprofloxacin HCl [From Cipro] Allergy (Verified 05/07/16 08:48) Itching estradiol [From Estrace] Allergy (Verified 05/07/16 08:48) Swelling meloxicam Allergy (Verified 08:48) Itching niacin Allergy (Verified 05/07/16 08:48) Itching Medications to take at Discharge Albuterol Aerosols [Ventolin Aerosols] 2.5 mg INHALATION Q4H PRN PRN 05/03/15 Albuterol IH (ProA ir) [Proair Hfa] 2 puff INHALATION Q4H PRN PRN 05/03/15 Furosemide [Lasix] 40 mg PO BIDLX PRN 05/03/15 Linagliptin [Tradjenta] 5 mg PO DAILY 05/03/15 Losartan Potassium [Cozaar] 100 mg PO BID 05/03/15 O meprazole [Prilosec] 40 mg PO BID 05/03/15 Ropinirole HCl [Requip] 3 mg PO DAILY 05/03/15 Topiramate [Topamax] 100 mg PO BID 05/03/15 Imipramine HCl [Tofranil] 50 mg PO QHS 05/07/16 Potassium Chloride [ Klor-Con] 20 meq PO BID 05/07/16 Cholecalciferol (Vitamin D3) [Vitamin D3] 6,000 unit PO DAILY 08/31/16 Levothyroxine [Synthroid] 50 mcg PO DAILY 08/31/16 Loratadine [Claritin] 10 mg PO DAILY 08/31/16 M ultivits,Ca,Minerals/Iron/FA [Women's Daily Formula Caplet] 1 tab PO DAILY 08/31/16 Tiotropium [place] [Spiriva 18 MCG] 1 puff INHALATION DAILY #1 inhaler 09/01/16 Aspirin [Aspir-Low] 81 mg PO DAILY Magnesium 250 mg PO BID 09/17/16 Docusate Sodium [Colace] 100 mg PO DAILY #30 capsule 11/04/16 Hydrocortisone/Pramoxine [Proctofoam-Hc Foam] 10 gm RC BID #1 foam 11/04/16 Ibuprofen [Motrin] 600 mg PO Q6H PRN PRN 11/06/16 TraMADol [Ultram (G)] 50 mg PO BID 11/06/16 Please Follow Up With: Velasquez or - call When: or , please call for day and time, thank you [phone] <Electronically signed by Kerrie Eng MD> Date Kerrie Eng MD CC: Naomi Colunga DO 06-Nov-2016 Emergency Department Summary Result: Comments: See Note; NOTES: [facility] Medical Records Department [address] [place] [address] Emergency Department Summary 11/06/16 1521 MR#: [id number] Acct: [id number] Name: JANIS ZAPATA Rep #: [id number] : 1970 46 From: Antione Barron MD PCP: Naomi Colunga DO Status: REG ER - ER Visit Summary Date of Service: 11/06/16 Chief Complaint: [Abscess] History of Pr esent Illness: The patient is a 46 F [] with possible rectal abscess. Seen by PA at Dr. Eng's office just prior to arrival. Seen several days ago by ED physician felt to be a hemorrhoid. Now patient sheets s had fevers for 3 days after 101 severe pain and some nausea. She has never had like this before. 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 He says a little bit of blood with her stoo l today. She has history of hemorrhoids which she does not think is the same. Is having bowel movements. The patient was asked to have a CT scan and call Dr. Eng as needed. Physical Examination: Vital signs stable except for heart rate of 146 very rate slightly up at 24. Patient is obese lying on stretcher family with her. He does not seem to encompass rest but she states any type of pressure walkin g severe HEENT normal except mucous membranes are slightly dry lungs clear no wheezes or rhonchi abdomen soft rotund no pain on palpation rectal exam revealed small external hemorrhoids a couple appeare d to be start partially from both but she said it do not hurt on digital exam above the anal verge on her left side or 9:00 she did have a 2-3 cm with soft slightly fluctuant tender mass blood or other lesions or adenopathy alert and oriented 3 no focal nodular deficits lethargy listlessness. Test Results: [] Emergency Department Course and Treatment: [Sepsis workup. Pressure stable so she received 1000 cc of normal saline then 250 cc an hour we will watch closely. Morphine 6 mg and Zofran 4 mg IV each for pain control. Treatment Plan: [] Disposition: [] Impression: [] ED Disposition - Plan for ED Patient: Chief Complaint: Abscess Referrals: Naomi Colunga, [Primary Care Provider] - What to do if you have Problems For any increased pain, shortness of breath, bleeding, nausea or vom iting, chest pain, or any unexpected problems, contact your Primary Care Provider. Call [facility] ([phone]) or report to the closest Emergency Room. Call 911 if necessary. 11/06/16 1543 &a mp;#60;Electronically signed by Antione Barron MD> Date Antione Barron MD Cosigner Signature (If Indicated): Date CC: Naomi Colunga DO 06-Nov-2016 Pelvis WITH IV Contrast Result: Comments: See Note; NOTES: [facility] Imaging Services [address] [place] [address] Pelvis WITH IV Contrast MR#: [id number] Acct: [id number] Name: JANIS ZAPATA Rep #: [id number] : 1970 F 46 From: Ana Paula Blum MD PCP: Naomi Colunga DO Status: REG ER Study: Pelvis WITH IV Contrast Date of Exam: 11/06/16 Exam# [id number] Ordering Dr: Antione Barron MD STUDY: CT PELVIS WITH CONTRAST REASON FOR EXAM: Female, 46 years old. Fever, history of rectovaginal fistula with repair RADIATION DOSAGE (If Supplied By Facility): CTDIvol = ( 23.98 ) mGy, DLP = ( 1156.24 ) m Gycm TECHNIQUE: Transaxial imaging of the pelvis was performed without oral contrast. 100 ml of Isovue 300 contrast was administered intravenously. Multiplanar coronal and sagittal images were reformat germain. Individualized dose optimization techniques were used for this CT. COMPARISON: None. FINDINGS: Normal urinary bladder. The uterus is absent. There are no abno rmal masses in the adnexal regions. There are numerous phleboliths in the lower pelvis. Normal visualized small intestine. Normal visualized colon. There is no pelvic fluid. There is no pelvic lymphad enopathy or mass lesion. Normal visualized pelvic arteries. There is stranding in the subcutaneous fat of the right buttock containing air foci. There is a fluid collection containing air in the right perirectal space measuring 2.6 x 3.2 x 3.2 cm. There are mild degenerative changes in the visualized spine. There are surgical changes at L5 and S1. -0036 CT/Pelvis WITH IV Contrast IMPRESSION: There is a perirectal abscess on the right side measuring 2.6 x 3.2 x 3.2 cm. There is also inflammation containing air foci in the right buttock extending from the abscess to just under the skin surface. The total diameter of the inflammatory change measures up to 12 cm. Electronically Signed: Ana Paula Blum MD at 16:55 EDT Tel [phone], Priscilla eagle support , CC: Antione Barron MD; Naomi Colunga DO Sign Writer Letterer Or Painter: Signed 17-Oct-2016 Pulmonary Function Report Comp Result: Comments: See Note; NOTES: [facility] Pulmonary Services/Neurology [address] [place] [address] MR#: [id number] Acct: [id number] Name: JANIS ZAPATA Rep #: [id number] : 0 1970 46 From: Say Rosa MD Referring Dr: Jeremias Gonsalez D.O. Status: REG CLI Ordering Dr: Date: Location: PSN Sex: F C Pulmonary Function Report Comp Pulmonary Function Report Comp: COMPLETE PULMONARY FUNCTION TEST INTERPRETATION Brief HPI: Patient is a 46 year old female, currently under the care of Dr. Gonsalez, who presents to [facility] for complete pulmonary fu nction tests secondary to diagnosis of NOY. Respiratory therapist reports good effort and reproducible results. Interpretation: Forced expiration spirometry shows a mild large airways obstructive vent ilatory defect with an FEV1 of 79 % predicted. There is no significant bronchodilator response by ATS criteria. Spirograms are of good quality and plateau gradually, indicating slowly emptying areas of the lungs. The respiratory flow volume loop shows decreased expiratory flow rates at high lung volumes consistent with small airways obstruction. Lung volumes by body plethysmography show a normal tota l lung capacity at 5.34 L, 107 % predicted. All other lung volumes are within normal limits. Diffusion capacity by carbon monoxide is decreased at 62 % predicted. The airway resistance is normal. No p revious pulmonary function tests were available for review. Impression: Irreversible mild large airways obstructive ventilatory defect with a reduction in DLCO out of proportion consistent with a poss ible concomitant pulmonary vascular disorder. 10/17/16 162 <Electronically signed by Say Rosa MD> Date Say Rosa MD CC: Say levy MD; Naomi Colunga DO Date Dictated: 10/17/161622 Date Transcribed: 10/17/161622 Sign Writer Letterer Or Painter: BA Signed 04-Oct-2016 6 Minute Walk Test Result: Comments: See Note; NOTES: [facility] Pulmonary Services/Neurology [address] [place] [address] MR#: [id number] Acct: [id number] Name: JANIS ZAPATA Rep #: [id number] : 1970 46 From: Say Rosa MD Referring Dr: Jeremias Gonsalez D.O. Date: Ordering Dr: Sex: F C Location: PSN PSN 6 Minute Walk Test - 6 Minute Walk Test 6 Minute Walk Test: 6 Minute Walk Test PSN :6-Minute Walk Test Start: 10/04/16 12:48 Freq: Status: Active Document 10/04/16 12:48 DWP (Rec: 10/04/16 12:56 DWP [id number]) 6 Minute Walk Test Date Performed 10/04/16 Time Performed 12:30 Height 1.63 m Weight: 152.407 kg Weight in Pounds 336.[address]: Jeremias Gonsalez Assistive device used: Cane Pre-test Oxygen Delivery Method Room Air Pulse Ox 99 Pulse Rate (beats/min) 125 Dyspnea Daniel Scale (0-1 0) 4 Exertion Daniel Scale (6-20) 8 Number of Rests Taken 0 1st minute Oxygen Delivery Method Room Air Pulse Ox 97 Pulse Rate (beats/min) 118 Number of Rests Taken 0 2nd minute Oxygen Delivery Method Room Air Pulse Ox 96 Pulse Rate (beats/min) 132 Number of Rests Taken 1 Reported Symptoms Dizziness 3rd minute Oxygen Delivery Method Room Air Pulse Ox 98 Pulse Rate (beats/min) 137 Number of Rests Taken 0 4th minute Oxygen Delivery Method Room Air Pulse Ox 98 Pulse Rate (beats/min) 144 Number of Rests Taken 0 5th minute Oxygen Delivery Method Room Air Pulse Ox 97 Pulse Rate (beats/min) 141 Number of Rest s Taken 0 6th minute Oxygen Delivery Method Room Air Pulse Ox 97 Pulse Rate (beats/min) 142 Number of Rests Taken 0 Post-test Oxygen Delivery Method Room Air Pulse Ox 98 Pulse Rate (beats/min) 128 Dyspn ea Daniel Scale (0-10) 8 Exertion Daniel Scale (6-20) 12 Number of Rests Taken 0 Full Laps Walked 5 Partial Lap, Number of Tiles Walked 95 Total Distance Walked (ft) 390 10/04/16 12:48 Cardiopulmonary Servi stephane by Tutu Torres Patient took break at 2:30 minutes into testing due to feeling lighteaded. Patient resumed walk at 0318. Patient used cane for assistance. Patient informed rt that she usually sheets s a high HR with baseline being around 105. Initialized on 10/04/16 12:48 - END OF NOTE - Interpretation Interpretation: The patient was able to ambulate only 390 feet over the course of 6 minut es on room air with the assistance of a cane. The patient did have lightheadedness at approximately 2 minutes and 30 seconds, which did limit patient's distance travel. The patient experienced no signif icant desaturation during testing, but did have significant tachycardia with a baseline heart rate of 125 bpm and a peak heart rate of 144 bpm. These findings are consistent with a cardiac limitation to exercise tolerance - Recommendations Recommendations: No supplemental oxygen is indicated at this time. Patient would benefit from a cardiac evaluation if not completed previously 10/04/161807 &am p;#60;Electronically signed by Say Rosa MD> Date Say Rosa MD CC: Date Dictated: 10/04/161806 Date Transcribed: 10/04/161806 Sign Writer Letterer Or Painter: Say Rosa Signed 17-Sep-2016 Chest 1 View Result: Comments: See Note; NOTES: [facility] Imaging Services [address] [place] [address] Verd[address] 4d Chest 1 View MR#: [id number] Acct: [id number] Name: JANIS ZAPATA Rep #: [id number] : 1970 F 46 From: Fabrizio Meade MD PCP: Naomi Colunga DO Status: REG CLI Study: Chest 1 View Date of Exam: 09/17/16 Exam# [id number] Ordering Dr: Fabrizio Meade MD STUDY: X-RAY CHEST REASON FOR EXAM: Female, 46 years old. Left flank pain. Status post renal biopsy TECHNIQUE: Single AP portable view of the chest. COMPARISON: None. FINDINGS: The lungs are clear and expanded. There is no demonstrated pleural abnormality. Normal size heart. Normal mediastinum and lesli. Normal visualized pulmonary arteries. Normal visualized aortic arch and desc ending thoracic aorta. Normal visualized thoracic spine. Normal visualized ribs, clavicles, and shoulders. There is no demonstrated abnormality of the visualized soft tissue structures of the upper ab domen. RAD/Chest 1 View IMPRESSION: There is no evidence of pneumothorax. There is no evidence of free air in the abdomen. Electronically Signed : Fabrizio Meade MD at 12:26 EDT Tel , Service support , CC: Fabrizio Meade MD; Naomi Colunga DO Sign Writer Letterer Or Painter: Signed 17-Sep-2016 Biopsy/Inj or Needle Placement Result: Comments: See Note; NOTES: [facility] Imaging Services [address] [place] [address] Verdana 4d Biopsy/Inj or Needle Placement MR#: [id number] Acct: [id number] Name: FREDY ZAPATA Rep #: [id number] : 1970 F 46 From: Fabrizio Meade MD PCP: Naomi Colunga DO Status: REG CLI Study: Biopsy/Inj or Needle Placement Date of Exam: 09/17/16 Exam# [id number] Ordering Dr: Ximena Slater MD PROCEDURE: CT-GUIDED CORE BIOPSY OF THE LEFT KIDNEY Individualized dose optimization techniques were used for this CT. INDICATION: Female, 46 [address] guidance RADIATION DOSAGE (If Supplied By Facility): CTDIvol = ( ) mGy, DLP = ( ) mGycm CONSENT: The risks, benefits and alternatives to the procedure were explained to the patient, and the patient agreed to th e procedure and signed the consent. SEDATION: Intermittent the intravenous and demonstration of Versed and fentanyl by nursing staff under continuous cardiopulmonary monitoring. Sedation less than appr oximately 30 minutes STERILE BARRIER TECHNIQUE: The following sterile barrier precautions were used during the procedure: hand hygiene; use of 2% chlorhexidine aseptic; use of a cap, mask, sterile gown , sterile gloves, sterile full body drape, and a large sterile sheet. PROCEDURE/TECHNIQUE: The risks, benefits, and alternatives to the procedure were explained to patient, and the patient agreed to th e procedure and signed a consent form for the procedure. A timeout was performed to confirm the patient's identity, the type of procedure, to be performed and the site of entry. Patient was positioned prone on the CT scan table. Under CT guidance using sterile technique and after infiltration of the skin and subcutaneous soft tissues with 40 mL of lidocaine 1% an 18-gauge core biopsy was introduced in the lower part of the left kidney.4 core samples were obtained and were placed with in special solution and sent to the lab for evaluation. FINDINGS: Successful CT-guided core biopsy of the left kid rika. CT/Biopsy/Inj or Needle Placement IMPRESSION: Successful CT-guided core biopsy of the left kidney. Electronically Signed: Fabrizio Meade MD at 11:25 EDT Tel , Service support , CC: Vibha Larson M.D.; Naomi Colunga DO Sign Writer Letterer Or Painter: Signed 31-Aug-2016 Chest PA and Lateral Result: Comments: See Note; NOTES: [facility] Imaging Services [address] [place], [place] [id number] Verdana 4d Chest PA and Lateral MR#: [id number] Acct: [id number] Name: JANIS ZAPATA Rep #: [id number] : 1970 F 46 From: Jesús Mcconnell MD PCP: Naomi Colunga DO Status: REG ER Study: Chest PA and Lateral Date of Exam: 08/31/16 Exam# [id number] Ordering Dr: Fatimah Rene STUDY: X- RAY CHEST REASON FOR EXAM: Female, 46 years old. Cough. TECHNIQUE: PA and lateral views of the chest. COMPARISON: 05/03/2015. FINDINGS: The lungs are clear and ex panded. There is no demonstrated pleural abnormality. Normal size heart. Normal mediastinum and lesli. Normal visualized pulmonary arteries. Normal visualized aortic arch and descending thoracic aorta. There are degenerative changes of the visualized thoracic spine. Normal visualized ribs, clavicles, and shoulders. There is no demonstrated abnormality of the visualized soft tissue structures of the upper abdomen. RAD/Chest PA and Lateral IMPRESSION: No active pulmonary disease. Electronically Signed: Jesús Mcconnell MD at 14:44 ED T Tel , Service support , CC: Fatimah Rene; Naomi Colunga DO Sign Writer Letterer Or Painter: Signed 29-Aug-2016 Operative Report Result: Comments: See Note; NOTES: [facility] Medical Records Department [address] [place] [address] Operative Report MR#: [id number] Acct: [id number] Name: JANIS ZAPATA Rep #: [id number] : 1970 46 From: Harry Gagnon MD PCP: Naomi Colunga DO Status: [facility] DATE OF SERVICE: 08/05/2016 DATE OF PROCEDURE: August 05, 2016. ATTENDING PHYSICIAN: Harry Gagnon M.D. PROCEDURE: Diagnostic/therapeutic caudal epidural steroid injection. PREOPERATIVE DIAGNOSES: Lumbar radiculopathy, lumbar degenerative disk disease, lumbar spinal stenosis. POSTOPERATIVE DIAGNOSES: Maral mbar radiculopathy, lumbar degenerative disk disease, lumbar spinal stenosis. ANESTHESIA: MAC. COMPLICATIONS: None. BLOOD LOSS: Minimal. PROCEDURE IN DETAIL: History and physical today was reviewed. Risks and benefits of procedure explained. The patient understood, agreed to the procedure and informed consent was obtained. IV inserted per routine protocol. The patient was taken to the operating ro om, placed in the prone position with a pillow positioned underneath the abdomen. The lower back and tailbone area was prepped and draped in a sterile fashion using iodine x3. Under fluoroscopy guidance , on the lateral view, the caudal space was identified. Skin and subcutaneous tissue anesthetized with approximately 3 mL of 1% lidocaine using a 25-gauge regular needle. Under direct visualization with fluoroscopy, using a 22-gauge 3-1/2-inch spinal needle, the needle was advanced via the skin through the sacral hiatus. Tip of the needle passed through the sacrococcygeal ligament and advanced to appr oximately S4 area. After negative aspiration of blood with CSF, a total of 3 mL of contrast were injected to confirm correct placement of the needle as well as cephalad spread. Spread was felt to approx imately L5 area. After confirmation of AP as well as lateral view and repeated negative aspiration, a total of 15 mL of preservative-free 0.125% Marcaine with 80 mg of Depo-Medrol was injected easily. N eedle was then removed intact. The patient experienced no signs or symptoms of intrathecal, intravascular injection. The patient experienced no paraesthesia. The procedure was completed without any appa rent difficulty, any complication. The patient appeared to tolerate well. ASSESSMENT AND PLAN: This is a 46-year-old female with lumbar radiculopathy, lumbar degenerative disk disease, lumbar spinal st enosis, status post diagnostic/therapeutic caudal epidural steroid injection. The patient will continue her current medications. The patient will follow up in approximately 2 weeks for possible repeat o f the procedure if indicated. Harry Gagnon MD T: NTS JOB: [id number] 08/29/16 1633 <Electronically signed by Harry Gagnon MD> Date ___ Harry Gagnon MD Cosigner Signature (If Indicated): Date CC: Harry Gagnon; Naomi Colunga DO Date Dictated: 08/05/16 1204 Date Trans cribed: 08/05/16 1204 Sign Writer Letterer Or Painter: Signed 15-Aug-2016 PT D/C Summary (1) Result: Comments: See Note; NOTES: [facility] Physical Therapy [facility] [address] [place] [address] Fax [facility]ATION [facility] JONES SUMMARY MR#: [id number] Acct: [id number] Name: JANIS ZAPATA Rep #: [id number] : 1970 46 From: Marguerite Haq DPT Referring Dr.: Leticia Bernard DO Status: REG RCR Insurance: [employer] HP - PT D/C Summary It has been my pleasure to treat JANIS ZAPATA under orders from Leticia Bernard DO, for the diagnosis of Left Hip Pain for a total of 7 visit(s). Discharge Date: Please see the following information for a summary of their discharge status. - Subjective Subjective: Patient reports that her left hip and bilateral knees are in pain. Reports being sick. Injection in the tail bone last friday and she could not walk without the walker- lasted 5 days-but is better now. The back is almost pain free. Left hip: 6/10 Knees: 7/10. Loves the pool but the exercises increase pain &amp ;#34;so bad. Wants to take a break from therapy and try I home exercises. - Pain L hip Pain Intensity (Out of 10): 0 LBP Pain Intensity (Out of 10): 8 R hip Pain Intensity (Out of 1 0): 8 - Objective Objective/Function: Posture: FH, RS- overweight. Gait: antalgic. Strength: Ankle: 5/5, Knee: 4+/5, Hip: 4+/5 throughout Core: fair minus - Goals Goal 1:: Patient will be I with HEP a nd progression Goal Progress: Progressing Goal 2:: Patient will asc/desc 8 stairs recip with 2 HR Goal Progress: Progressing Goal 3:: Patient will demo 4+/5 strength in LE where deficit to ease ADL's. Goal Progress: Progressing Goal 4:: Patient will ambulate >300 feet with a normalized gait pattern and LRD Goal Progress: Progressing Goal 5:: Patient will maintain upright posture t/o t x session to dem Goal Progress: Progressing - Plan Plan: Discharge to I HEP - D/C Information If there are questions or concerns regarding this patient's physical therapy, please feel free to call me at [phone]. Thank you for the referral of this patient. Sincerely, Marguerite Haq <Electronically signed by Marguerite Haq DPT> 08/15/16 1053 CC: Leticia Colunga DO ELR Signed 05-Aug-2016 OR-Steroi/Epid Inj/Lum Sac/1st Result: Comments: See Note; NOTES: [facility] Imaging Services [address] [facility] [place] [address] Verdana 4d OR-Steroi/Epid Inj/Lum Sac/1st MR#: [id number] Acct: [id number] Name: FREDY ZAPATA Rep #: [id number] : 1970 F 46 From: Matt Beckwith MD PCP: Naomi Colunga DO Status: [facility] Study: OR-Steroi/Epid Inj/Lum Sac/1st Date of Exam: 08/05/16 Exam# [id number] Ordering Dr : Harry Gagnon MD PROCEDURE: Caudal block. DATE OF EXAMINATION: August 05, 2016. INDICATION: Female, 46 years old. A caudal block was performed by the pain management physician. RAD/OR-Steroi/Epid Inj/Lum Sac/1st IMPRESSION: Fluoroscopic services provided for caudal block. Electronically Signed: Matt Beckwith MD at 15:16 EDT Tel [phone], Service support , CC: Harry Gagnon; Naomi Colunga DO Sign Writer Letterer Or Painter: Signed 25-Jul-2016 Re-Evaluation - PT (1) Result: Comments: See Note; NOTES: [facility] Physical Therapy [facility] [address] [place] [address]. [address] [place] [address] Fax [facility] PHYSICAL THERAPY MR#: [id number] Acct: [id number] Name: JANIS ZAPATA Rep #: [id number] : 1970 46 From: Marguerite Haq DPT Referring DrYaneth: Leticia Bernard DO Status: REG RCR Ins urance: [facility] Leticia Bernard DO, It has been my pleasure to treat JANIS ZAPATA over the last 4 visits for Left Hip Pain. Please see the progress note below for an update on the physi juliocesar therapy plan of care! Subjective: Patient reports that her hip still hurts- she is being set up for injections in her back. Had an injection in her hip about a month ago and one in her knee about 2 weeks ago and the one in her back she is waiting for a phone call. [place] the knee/hip injections helped. Feels that the water therapy helped a lot. The first few times she had a lot of pain- was given T ramadol by the MD which has been helping. She has some days where she was unable to come becuase she was unable to move. Would like to continue therapy and learn more things to do at home. The squats th at she did made her painfree for about 5 days after therapy last visit. Pain is located mostly in her knees-the right knee locks out on her. Has been moving more due to the nicer weather. Feels that she is 40% better- wants to be able to do walk without an assistive device. Still does one step at a time- always leads with the left foot. No N/T just pain- walking pain is shooting into the knee- dull an d achy when stationary. Objective/Function: Posture: FH, RS, Increased kyphosis. Gait: antalgic- toes turned out to the side with quad cane. Stairs: asc/desc 8 non recip with 2 HR. ROM: WFL. St rength: Core: fair minus, Hip: 4/5, Knee: 4+/5, Ankle: 5/5 Plan Plan: Cont with POC 2x a week for 3 weeks. Goals Goal 1:: Patient will be I with HEP and progression Goal Time Frame: 4-6 Weeks Goal Pro mike: Progressing Goal 2:: Patient will asc/desc 8 stairs recip with 2 HR Goal Time Frame: 4-6 Weeks Goal Progress: Progressing Goal 3:: Patient will demo 4+/5 strength in LE where deficit to ease ADL's. Goal Time Frame: 4-6 Weeks Goal Progress: Progressing Goal 4:: Patient will ambulate >300 feet with a normalized gait pattern and LRD Goal Time Frame: 4-6 Weeks Goal Progress: Progre ssing Goal 5:: Patient will maintain upright posture t/o tx session to dem Goal Time Frame: 4-6 Weeks Goal Progress: Progressing Anticipated Interventions Patient/Client Instruction: Educate patient on : Benefits of Fitness Program For the Purpose of:: To increase tolerance to activity/condition/position Therapeutic Exercise to Include: Strength training, Endurance training, Balance training, Agility training, Body mechanics, Postural training, Flexibilty training, Gait and locomotor training, "In an aquatic setting, Dynamic Lumbar Stabilization For the Purpose of:: To improve muscl e performance and motor function Please do not hesitate to contact me at [phone] by phone or if you have questions or concerns regarding this new plan of care! Sincerely, Marguerite Haq <Electronically signed by Marguerite Haq DPT> 07/25/16 1609 CC: Leticia Bernard DO; Naomi Colunga DO ELR Signed For Medicare only, by signing this I certify the plan of care. Physicians Signature Date 15-Jul-2016 L/S Spine Min 4 Views Result: Comments: See Note; NOTES: [facility] Imaging Services [address] [place] [address] Natashadachristel 4d L/S Spine Min 4 Views MR#: [id number] Acct: [id number] Name: JANIS ZAPATA p #: [id number] : 1970 F 46 From: Aaron Glasgow MD PCP: Naomi Colunga DO Status: REG CLI Study: L/S Spine Min 4 Views Date of Exam: 07/15/16 Exam# [id number] Ordering Dr: Daniella Sharp STUDY: X-RAY - LUMBAR SPINE REASON FOR EXAM: Female, 46 years old. Back pain TECHNIQUE: 5 view(s) of the lumbar spine were obtained. COMPARISON: None FIN DINGS: There is interbody fusion at L5-S1. Plates and transpedicular screws have been used for stabilization. It is overall normal alignment and curvature of the spine. There is deroofing at L5. RAD/L/S Spine Min 4 Views IMPRESSION: Interbody fusion at L5-S1. Plates and transpedicular screws have been used for stabilization. Nothing acute Elect ronically Signed: Aaron Glasgow, at 12:48 EDT Tel , Service support [phone], CC: Carlotta Sharp; Naomi Colunga DO Sign Writer Letterer Or Painter: Signed 24-Jun-2016 Knee 4 or More Views Result: Comments: See Note; NOTES: [facility] Imaging Services [address] [place] [address] Verdana 4d Knee 4 or More Views MR#: [id number] Acct: [id number] Name: JANIS ZAPATA Rep # : [id number] : 1970 F 45 From: Jesús Mcconnell MD PCP: Naomi Colunga DO Status: REG RCR Study: Knee 4 or More Views Date of Exam: 06/24/16 Exam# [id number] Ordering Dr: Carlotta Sharp STUD Y: X-RAY - RIGHT KNEE REASON FOR EXAM: Female, 45 years old. Right knee pain. TECHNIQUE: 4 view(s) of the knee. COMPARISON: None. FINDINGS: Normal visualized dist al femur. Normal visualized proximal tibia and fibula. Normal proximal tibiofibular articulation. There is no demonstrated fracture. There is mild degenerative arthrosis of the medial femorotibial comp artment. There is moderate degenerative arthrosis of the lateral femorotibial compartment with moderate joint space narrowing. There is moderate degenerative arthrosis of the patellofemoral articulation . There is no demonstrated joint effusion. There may be mild prepatellar soft tissue swelling. RAD/Knee 4 or More Views IMPRESSION: Degenerative arthrosis. Electronically Signed: Jesús Mcconnell MD at 3:27 EDT Tel , Service support [phone], CC: Carlotta Sharp; Naomi Colunga DO Sign Writer Letterer Or Painter: Signed 24-Jun-2016 Knee 4 or More Views Result: Comments: See Note; NOTES: [facility] Imaging Services [address] [place] [address] Verdana 4d Knee 4 or More Views MR#: [id number] Acct: [id number] Name: JANIS ZAPATA Rep # : [id number] : 1970 F 45 From: Jesús Mcconnell MD PCP: Naomi Colunga DO Status: [facility] RCR Study: Knee 4 or More Views Date of Exam: 06/24/16 Exam# [id number] Ordering Dr: Carlotta Sharp STUD Y: X-RAY - LEFT KNEE REASON FOR EXAM: Female, 45 years old. Knee pain. TECHNIQUE: 4 view(s) of the knee. COMPARISON: None. FINDINGS: Normal visualized distal femu r. Normal visualized proximal tibia and fibula. Normal proximal tibiofibular articulation. There is no demonstrated fracture. There is severe degenerative arthrosis of the medial femorotibial compartme nt with severe joint space narrowing. Normal lateral femorotibial compartment. There is moderate degenerative arthrosis of the patellofemoral articulation. There is no demonstrated joint effusion. The soft tissue structures are unremarkable. RAD/Knee 4 or More Views IMPRESSION: Degenerative arthrosis. Electronically Signed: Jesús Mcconnell MD 2 at 3:30 EDT Tel , Service support [phone], CC: Carlotta Sharp; Naomi Colunga DO Sign Writer Letterer Or Painter: Signed 04-Jun-2016 Inital Evaluation (1) - PT Result: Comments: See Note; NOTES: [facility] [address] [place] [address]. [address] [place] [address] Fax [facility] INITIAL EVALUATION MR#: [id number] Acct: [id number] Name: JANIS ZAPATA Rep #: [id number] : 1970 45 From: Marguerite Haq DPT Referring Dr.: Carlotta Sharp Status: REG R Insurance: [facility] Patient's Visit Information JANIS ZAPATA is a 45 year old F referred to Physical Therapy by HEAVENLY Allen with a diagnosis of Left Hip Pain. Date of Evaluation: 06/04/16 Physical Thera pist: Marguerite Haq - Visit Plan Frequency: 2x /Week Duration: 4 Weeks Plan: Focus on LE and core s/s. - Subjective Subjective: Patient reports that she has a lot of health problems but her left hip is really bad. The left hip needs to be replaced but due to health issues and her weight he won't operate. Sent to Dr. Zhu and he gave her an injection 2 weeks ago and the pain came back on Friday. Was hoping the injection would last longer. Since 2000 has been seeing neurologist - 2008 had back surgery- Dr. Merino- fusion- Dr Guthrie did a neck surgery 2003. Has DDD, bone spurs, OA, HTN, high umair sterol, heart disease, kidney failure and disease, partial hysterectomy, DM, migraines, cysts in her spine/back of her head, Restless leg syndrome, sleep apnea. Meds: see list. Has gained a lot of weigh t due to being immobile. Sleep: reclyner- has a bed but hard to get upstairs to it. Wakes up 5-6x a night. Left hip- Worst: 11/14 Agg: night time, getting in/out of the car, up/down out of chairs. Best: 310 Eases: sitting down. Pain is described as dull and achy all the time- sharp/shooting when she is in certain positions. N/T in the toes but its not new- neuropathy. Pain is located in the hip and ra diates to the ankle and ronny the back. X-rays- 2 months ago- OA. - Objective Posture: FH, RS, Increased kyphosis-pt is morbidly obese. Gait: severly antalgic- uses quad point cane-decreased stance time on the left LE with wide REJI due to panus. Stairs: non recip with 2 HR. Balance: unable to SLS only weight shift with bilateral UE A. HR/TR: able to perform with pain TR. Palpation: not tender in hip. R OM: WFL pain with IR. Strength: Ankle: 4+/5, knee: 4/5, Hip: 4-/5 throughout Core: poor - Goals Goal 1:: Patient will be I with HEP and progression Goal Time Frame: 4-6 Weeks Goal 2:: Patient will asc/ desc 8 stairs recip with 2 HR Goal Time Frame: 4-6 Weeks Goal 3:: Patient will demo 4+/5 strength in LE where deficit to ease ADL's. Goal Time Frame: 4-6 Weeks Goal 4:: Patient will ambulate &a mp;#62;300 feet with a normalized gait pattern and LRD Goal Time Frame: 4-6 Weeks Goal 5:: Patient will maintain upright posture t/o tx session to dem Goal Time Frame: 4-6 Weeks - Rehabilitation Potent ial Physical Therapy Diagnosis: Patient presents with hypomobility- she has decreased strength and muscular endurance leading to poor posture and increased pain with mobility. Rehabilitation Potential: Fair - Anticipated Interventions Patient/Client Instruction: Educate patient on: Benefits of Fitness Program For the Purpose of:: To increase tolerance to activity/condition/position Therapeutic Exerci se to Include: Strength training, Endurance training, Balance training, Agility training, Body mechanics, Postural training, Flexibilty training, Gait and locomotor training, In an aquatic sett ing, Dynamic Lumbar Stabilization For the Purpose of:: To improve muscle performance and motor function Thank you for the opportunity to evaluate your patient. For Medicare and Medicare HM O plans, please review the plan of care and approve it. It will need to be FAXED BACK to us at [phone] for Medicare purposes. Please let me know if there are questions or concerns regarding this plan of care. Physician Signature: Date: <Electronically signed by Marguerite Haq DPT> 06/04/16 3415 CC: Carlotta Kirkland ; Naomi Colunga DO ELR Signed For Medicare only, by signing this I certify the plan of care. Physicians Signature Date 04-Jun-2016 Thyroid Result: Comments: See Note; NOTES: [facility] Imaging Services [address] [place] [address] Verdana 4d Thyroid MR#: [id number] Acct: [id number] Name: JANIS ZAPATA Rep #: [id number] D OB: 1970 F 45 From: Shaggy Jean DO PCP: Naomi Colunga DO Status: REG CLI Study: Thyroid Date of Exam: 06/04/16 Exam# [id number] Ordering Dr: Naomi Colunga DO STUDY: THYROID ULTRASOUND REAS ON FOR EXAM: Female, 45 years old. Abnormal thyroid functions tests TECHNIQUE: Ultrasound evaluation of the thyroid was performed with real-time and static hilliard-scale imaging. COMPARISON: None. FINDINGS: RIGHT LOBE: The right lobe of the thyroid gland measures 5.2 x 2 x 1.5 cm. There is a homogeneous echotexture. There are no demonstrated solid, cystic or comple x lesions. Small lower pole solid nodule measuring less than 1 cm. LEFT LOBE: The left lobe of the thyroid gland measures 4.7 x 1.6 x 1.5 cm. There is a homogeneous echotexture. There are no demonstrat ed solid, cystic or complex lesions. Small mid pole solid nodule measuring less than 5 mm. ISTHMUS: The isthmus measures 3 mm. The regional lymph nodes are normal. US/Thyroid IMPRESSION: Small subcentimeter nodules bilaterally, otherwise unremarkable thyroid Electronically Signed: Shaggy Jean DO at 20:11 EST Tel , S ervice support [phone], CC: Naomi Colunga DO Sign Writer Letterer Or Painter: Signed 27-May-2016 Operative Report Result: Comments: See Note; NOTES: [facility] Medical Records Department [address] [place] [id number] Operative Report MR#: [id number] Acct: [id number] Name: JANIS ZAPATA Rep #: [id number] : 1970 45 From: Harry Gagnon MD PCP: Naomi Colunga DO Status: [facility] DATE OF SERVICE: 05/13/2016 DATE OF SERVICE: May 13, 2016 ATTENDING PHYSICIAN: Harry Gagnon M.D. PROCEDURE: Left hip intraarticular steroid injection under fluoroscopy guidance. PREOPERATIVE DIAGNOSIS: Osteoarthritis of the left hip. POSTOPERATIVE DIAGNOSIS: Osteoarthritis of the left hip. ANEST HESIA: MAC. COMPLICATIONS: None. BLOOD LOSS: Minimal. PROCEDURE IN DETAIL: History and physical today was reviewed. Risks and benefits of the procedure were explained. The patient understood, agreed to our procedure and informed consent was obtained. IV inserted per routine protocol. The patient was taken to the operating room, placed in the supine position. The left hip area was prepped and draped in a sterile fashion using iodine x3. Under fluoroscopy guidance, on AP view, the left hip joint was visualized. The skin and subcutaneous tissues were anesthetized with approximately 3 mL of 1% lidoca ine using a 25-gauge regular needle. Under direct visualization with fluoroscopy, using a 22-gauge, 6-inch spinal needle, the needle was advanced using the lateral approach. The tip of the needle was ma neuvered and directed towards the superiormost aspect of the hip joint. Once the tip of the needle was at the vicinity of the joint after negative aspiration for blood, a total of 2 mL of contrast were injected to confirm correct placement of the needle as well as halo spread around the hip joint. After repeated negative aspiration and confirmation of AP as well as oblique view, a total of 10 mL of pr eservative-free 0.25% Marcaine with 80 mg of Depo-Medrol was injected easily. Needle was then removed intact. The patient experienced no signs or symptoms of intrathecal, intravascular injection. The pa tient experienced no paraesthesia. The procedure was completed without any apparent difficulty, any complication. The patient appeared to tolerate well. ASSESSMENT AND PLAN: This is a 45-year-old femal e with osteoarthritis of the left hip, status post left hip intraarticular steroid injection under fluoroscopy guidance. The patient will continue her current medication. The patient will follow up in a pproximately 2 weeks for possible repeat of the procedure if indicated. Harry Gagnon MD T: NTS JOB: [id number] 05/27/16 1355 <Electronically signed by Harry Gagnon MD> Date __ Harry Gagnon MD Cosigner Signature (If Indicated): Date CC: Harry Ames Date Dictated: 05/13/168 Date Transcribed: 05/13/161117 Sign Writer Letterer Or Painter: Signed 13-May-2016 Inj/Asp Aakash Jt Should/Hip/Knee Result: Comments: See Note; NOTES: [facility] Imaging Services [address] [place] [address] Verdana 4d Inj/Asp Aakash Jt Should/Hip/Knee MR#: [id number] Acct: [id number] Name: FREDY ZAPATA Rep #: [id number] : 1970 F 45 From: Matt Beckwith MD PCP: Naomi Colunga DO Status: [facility] Study: Inj/Asp Aakash Jt Should/Hip/Knee Date of Exam: 05/13/16 Exam# [id number] Ordering Dr: Harry Gagnon MD STUDY: INJECTION HIP LEFT REASON FOR EXAM: Female, 45 years old. Left hip pain TECHNIQUE: Imaging provided for left hip injection. COMPARISON: None. FINDINGS: Spinal needle is seen overlying the left proximal femur. Contrast is seen within the soft tissues. RAD/Inj/Asp Aakash Jt Should/H ip/Knee IMPRESSION: Contrast seen within the soft tissues of the left hip. Electronically Signed: Matt Beckwith MD at 13:45 EST Tel [phone], Service support [phone], Fax CC: Harry Gagnon; Naomi Colunga DO Sign Writer Letterer Or Painter: Signed Family History Unknown Family Member Name Dates Details Breast Cancer Comments: Paternal Grandfather. Status: Active Cancer Comments: Father. Status: Active Diabetes Mellitus Comments: Maternal Grandfather. Status: Active Heart Disease Comments: Mother. Maternal Grandmother. Maternal Grandfather. Paternal Grandfather. Brother. Status: Active Hypercholesterolemia Comments: Father. Paternal Grandmother. Paternal Grandfather. Sister. Status: Active Hypertension Comments: Paternal Grandmother. Paternal Grandfather. Sister. Status: Active Lung/Respiratory Disease Comments: Father. Paternal Grandmother. Paternal Grandfather. Status: Active Ovarian dx Comments: Mother. Status: Active Ulcer Disease Comments: Mother. Status: Active Social History Name Dates Details Alcohol Use: Occasional alcohol use. Status: Active Caffeine Use Comments: qd Status: Active Exercise History: Exercises regularly. Status: Active Living Situation: Lives with spouse. Lives with relatives. Status: Active No Drug Use Status: Active Pets/Animals Status: Active Tobacco Use Comments: 1 ppd Status: Active Vital Signs Date Test Result Details [id number]-[id number] Temperature 98 f Comments: Method: Oral Pulse 139 /min Comments: Pattern: Regular Respiration Rate 20 /min Comments: Pattern: Unlabored O2 SAT 95 % Comments: Room air BP Systolic 170 mm[Hg] Comments: Patient Position: Sitting; Cuff Location: Left Arm; Cuff Size: Large BP Diastolic 110 mm[Hg] Comments: Patient Position: Sitting; Cuff Location: Left Arm; Cuff Size: Large Weight 357 lb Height 64 in Body Mass Index Calculated 61.28 kg/m2 Body Surface Area Calculated 2.5 m2 [id number]:26 Temperature 97.2 f Comments: Method: Temporal Pulse 103 /min Comments: Pattern: Regular Respiration Rate 16 /min Comments: Pattern: Unlabored BP Systolic 130 mm[Hg] Comments: Patient Position: Sitting; Cuff Location: Left Arm; Cuff Size: Standard BP Diastolic 80 mm[Hg] Comments: Patient Position: Sitting; Cuff Location: Left Arm; Cuff Size: Standard Weight 338 lb Height 64 in Body Mass Index Calculated 58.02 kg/m2 Body Surface Area Calculated 2.44 m2 :23 Temperature 97.5 f Comments: Method: Temporal Pulse 123 /min Comments: Pattern: Regular Respiration Rate 18 /min Comments: Pattern: Unlabored O2 SAT 97 % Comments: Room air BP Systolic 124 mm[Hg] Comments: Patient Position: Sitting; Cuff Location: Left Arm; Cuff Size: Standard BP Diastolic 84 mm[Hg] Comments: Patient Position: Sitting; Cuff Location: Left Arm; Cuff Size: Standard Weight 338 lb Height 64 in Body Mass Index Calculated 58.02 kg/m2 Body Surface Area Calculated 2.44 m2 :13 Temperature 97.3 f Comments: Method: Temporal Pulse 72 /min Comments: Pattern: Regular Respiration Rate 16 /min Comments: Pattern: Unlabored O2 SAT 97 % Comments: Room air BP Systolic 124 mm[Hg] Comments: Patient Position: Sitting; Cuff Location: Left Arm; Cuff Size: Standard BP Diastolic 74 mm[Hg] Comments: Patient Position: Sitting; Cuff Location: Left Arm; Cuff Size: Standard Weight 341 lb Height 64 in Body Mass Index Calculated 58.53 kg/m2 Body Surface Area Calculated 2.45 m2 :15 Temperature 97.2 f Comments: Method: Temporal Pulse 94 /min Comments: Pattern: Regular Respiration Rate 16 /min Comments: Pattern: Unlabored O2 SAT 99 % Comments: Room air BP Systolic 140 mm[Hg] Comments: Patient Position: Sitting; Cuff Location: Left Arm; Cuff Size: Standard BP Diastolic 94 mm[Hg] Comments: Patient Position: Sitting; Cuff Location: Left Arm; Cuff Size: Standard Weight 334.375 lb Height 64 in Body Mass Index Calculated 57.39 kg/m2 Body Surface Area Calculated 2.43 m2 :57 Pulse 110 /min Comments: Pattern: Regular Respiration Rate 18 /min Comments: Pattern: Unlabored O2 SAT 98 % Comments: Room air BP Systolic 142 mm[Hg] Comments: Patient Position: Sitting; Cuff Location: Left Arm; Cuff Size: Large BP Diastolic 100 mm[Hg] Comments: Patient Position: Sitting; Cuff Location: Left Arm; Cuff Size: Large Weight 334.375 lb Height 64 in Body Mass Index Calculated 57.39 kg/m2 Body Surface Area Calculated 2.43 m2 :40 Pulse 107 /min Comments: Pattern: Regular Respiration Rate 20 /min Comments: Pattern: Labored O2 SAT 98 % Comments: Room air BP Systolic 132 mm[Hg] Comments: Patient Position: Sitting; Cuff Location: Left Arm; Cuff Size: Large BP Diastolic 90 mm[Hg] Comments: Patient Position: Sitting; Cuff Location: Left Arm; Cuff Size: Large Weight 344 lb Height 64 in Body Mass Index Calculated 59.05 kg/m2 Body Surface Area Calculated 2.46 m2 :09 Comments: orthostatic: laying 118/76, sit 98/72, stand 96/70 Temperature 99.3 f Pulse 115 /min Comments: Pattern: Regular Respiration Rate 18 /min Comments: Pattern: Unlabored O2 SAT 95 % Comments: Room air BP Systolic 118 mm[Hg] Comments: Patient Position: Sitting; Cuff Location: Left Arm; Cuff Size: Standard BP Diastolic 76 mm[Hg] Comments: Patient Position: Sitting; Cuff Location: Left Arm; Cuff Size: Standard Weight 325.125 lb Height 64 in Body Mass Index Calculated 55.81 kg/m2 Body Surface Area Calculated 2.4 m2 [id number]:00 Pulse 107 /min Comments: Pattern: Regular Respiration Rate 18 /min Comments: Pattern: Unlabored O2 SAT 98 % Comments: Room air BP Systolic 138 mm[Hg] Comments: Patient Position: Sitting; Cuff Location: Left Arm; Cuff Size: Large BP Diastolic 84 mm[Hg] Comments: Patient Position: Sitting; Cuff Location: Left Arm; Cuff Size: Large Weight 325.125 lb Height 64 in Body Mass Index Calculated 55.81 kg/m2 Body Surface Area Calculated 2.4 m2 :14 Pulse 103 /min Comments: Pattern: Regular Respiration Rate 18 /min Comments: Pattern: Unlabored O2 SAT 98 % Comments: Room air BP Systolic 138 mm[Hg] Comments: Patient Position: Sitting; Cuff Location: Left Arm; Cuff Size: Large BP Diastolic 82 mm[Hg] Comments: Patient Position: Sitting; Cuff Location: Left Arm; Cuff Size: Large Weight 325.125 lb Height 64 in Body Mass Index Calculated 55.81 kg/m2 Body Surface Area Calculated 2.4 m2 :55 Pulse 116 /min Comments: Pattern: Regular Respiration Rate 18 /min Comments: Pattern: Unlabored O2 SAT 97 % Comments: Room air BP Systolic 128 mm[Hg] Comments: Patient Position: Sitting; Cuff Location: Left Arm; Cuff Size: Large BP Diastolic 84 mm[Hg] Comments: Patient Position: Sitting; Cuff Location: Left Arm; Cuff Size: Large Weight 331.5 lb Height 64 in Body Mass Index Calculated 56.9 kg/m2 Body Surface Area Calculated 2.42 m2 :53 Pulse 113 /min Comments: Pattern: Regular Respiration Rate 20 /min Comments: Pattern: Unlabored O2 SAT 93 % Comments: Room air BP Systolic 142 mm[Hg] Comments: Patient Position: Sitting; Cuff Location: Left Arm; Cuff Size: Large BP Diastolic 98 mm[Hg] Comments: Patient Position: Sitting; Cuff Location: Left Arm; Cuff Size: Large Weight 326.5 lb Height 64 in Body Mass Index Calculated 56.04 kg/m2 Body Surface Area Calculated 2.41 m2 :57 Pulse 104 /min Comments: Pattern: Regular Respiration Rate 20 /min Comments: Pattern: Wheezing O2 SAT 97 % Comments: Room air BP Systolic 120 mm[Hg] Comments: Patient Position: Sitting; Cuff Location: Left Arm; Cuff Size: Standard BP Diastolic 82 mm[Hg] Comments: Patient Position: Sitting; Cuff Location: Left Arm; Cuff Size: Standard Weight 328.375 lb Height 64 in Body Mass Index Calculated 56.36 kg/m2 Body Surface Area Calculated 2.42 m2 :24 Pulse 105 /min Comments: Pattern: Regular Respiration Rate 16 /min Comments: Pattern: Unlabored O2 SAT 95 % Comments: Room air BP Systolic 138 mm[Hg] Comments: Patient Position: Sitting; Cuff Location: Left Arm; Cuff Size: Standard BP Diastolic 82 mm[Hg] Comments: Patient Position: Sitting; Cuff Location: Left Arm; Cuff Size: Standard Weight 333.25 lb Height 64 in Body Mass Index Calculated 57.2 kg/m2 Body Surface Area Calculated 2.43 m2 :09 Pulse 88 /min Comments: Pattern: Regular Respiration Rate 16 /min Comments: Pattern: Unlabored O2 SAT 98 % Comments: Room air BP Systolic 122 mm[Hg] Comments: Patient Position: Sitting; Cuff Location: Left Arm; Cuff Size: Standard BP Diastolic 80 mm[Hg] Comments: Patient Position: Sitting; Cuff Location: Left Arm; Cuff Size: Standard Weight 333.25 lb Height 64 in Body Mass Index Calculated 57.2 kg/m2 Body Surface Area Calculated 2.43 m2 :23 Temperature 99.1 f Pulse 115 /min Comments: Pattern: Regular Respiration Rate 16 /min Comments: Pattern: Unlabored O2 SAT 95 % Comments: Room air BP Systolic 132 mm[Hg] Comments: Patient Position: Sitting; Cuff Location: Left Arm; Cuff Size: Standard BP Diastolic 82 mm[Hg] Comments: Patient Position: Sitting; Cuff Location: Left Arm; Cuff Size: Standard Weight 342.25 lb Height 64 in Body Mass Index Calculated 58.75 kg/m2 Body Surface Area Calculated 2.46 m2 :27 Pulse 110 /min Comments: Pattern: Regular Respiration Rate 18 /min Comments: Pattern: Unlabored O2 SAT 96 % Comments: Room air BP Systolic 132 mm[Hg] Comments: Patient Position: Sitting; Cuff Location: Left Arm; Cuff Size: Large BP Diastolic 88 mm[Hg] Comments: Patient Position: Sitting; Cuff Location: Left Arm; Cuff Size: Large Weight 342.25 lb Height 64 in Body Mass Index Calculated 58.75 kg/m2 Body Surface Area Calculated 2.46 m2 :48 Pulse 117 /min Comments: Pattern: Regular Respiration Rate 18 /min Comments: Pattern: Unlabored O2 SAT 96 % Comments: Room air BP Systolic 142 mm[Hg] Comments: Patient Position: Sitting; Cuff Location: Left Arm; Cuff Size: Large BP Diastolic 88 mm[Hg] Comments: Patient Position: Sitting; Cuff Location: Left Arm; Cuff Size: Large Weight 346 lb Height 64 in Body Mass Index Calculated 59.39 kg/m2 Body Surface Area Calculated 2.47 m2 :07 Temperature 97.3 f Pulse 115 /min Comments: Pattern: Regular Respiration Rate 17 /min Comments: Pattern: Unlabored O2 SAT 97 % Comments: Room air BP Systolic 126 mm[Hg] Comments: Patient Position: Sitting; Cuff Location: Left Arm; Cuff Size: Standard BP Diastolic 84 mm[Hg] Comments: Patient Position: Sitting; Cuff Location: Left Arm; Cuff Size: Standard Weight 355.5 lb Height 64 in Body Mass Index Calculated 61.02 kg/m2 Body Surface Area Calculated 2.5 m2 :11 Pulse 116 /min Comments: Pattern: Regular Respiration Rate 16 /min Comments: Pattern: Unlabored O2 SAT 98 % Comments: Room air BP Systolic 124 mm[Hg] Comments: Patient Position: Sitting; Cuff Location: Left Arm; Cuff Size: Standard BP Diastolic 78 mm[Hg] Comments: Patient Position: Sitting; Cuff Location: Left Arm; Cuff Size: Standard Weight 355.5 lb Height 64 in Body Mass Index Calculated 61.02 kg/m2 Body Surface Area Calculated 2.5 m2 :42 Pulse 129 /min Comments: Pattern: Regular Respiration Rate 20 /min Comments: Pattern: Labored O2 SAT 94 % Comments: Room air BP Systolic 132 mm[Hg] Comments: Patient Position: Sitting; Cuff Location: Left Arm; Cuff Size: Large BP Diastolic 78 mm[Hg] Comments: Patient Position: Sitting; Cuff Location: Left Arm; Cuff Size: Large Weight 355.5 lb Height 64 in Body Mass Index Calculated 61.02 kg/m2 Body Surface Area Calculated 2.5 m2 :11 Pulse 116 /min Comments: Pattern: Regular O2 SAT 97 % Comments: Room air BP Systolic 182 mm[Hg] Comments: Patient Position: Sitting; Cuff Location: Left Arm; Cuff Size: Large BP Diastolic 82 mm[Hg] Comments: Patient Position: Sitting; Cuff Location: Left Arm; Cuff Size: Large Weight 355.5 lb Height 64 in Body Mass Index Calculated 61.02 kg/m2 Body Surface Area Calculated 2.5 m2 :54 Pulse 114 /min Comments: Pattern: Regular Respiration Rate 18 /min Comments: Pattern: Unlabored O2 SAT 98 % Comments: Room air BP Systolic 128 mm[Hg] Comments: Patient Position: Sitting; Cuff Location: Left Arm; Cuff Size: Large BP Diastolic 78 mm[Hg] Comments: Patient Position: Sitting; Cuff Location: Left Arm; Cuff Size: Large Weight 349 lb Height 64 in Body Mass Index Calculated 59.91 kg/m2 Body Surface Area Calculated 2.48 m2 :15 Pulse 116 /min Comments: Pattern: Regular O2 SAT 97 % Comments: Room air BP Systolic 168 mm[Hg] Comments: Patient Position: Sitting; Cuff Location: Left Arm; Cuff Size: Large BP Diastolic 82 mm[Hg] Comments: Patient Position: Sitting; Cuff Location: Left Arm; Cuff Size: Large Weight 344.375 lb Height 64 in Body Mass Index Calculated 59.11 kg/m2 Body Surface Area Calculated 2.46 m2 Results Date Description Value Details [id number]-[id number] Rapid Flu (99200 x 2) Influenza A Ag negative (Normal) :26 Aerobic Bacterial Culture Comments: R arm; PATIENT NOT FASTINGPERFORMED BY: [facility] Hnulrn3719 [facility] [id number] Information: RIGHT ARM SRC:AR (80648) Antimicrobial MIHEAD (Normal) Comments: S = Susceptible; I = Intermediate; R = Resistant P = Positive; N = Negative MICS are expressed in micrograms per mL Antibiotic RSLT#1 RSLT#2 RS Susceptibility LT#3 RSLT#4Ciprofloxacin SClindamycin SErythromycin SGentamicin SLevofloxacin SLinezolid SMoxifloxacin SOxacillin SPenicillin RQuinupristin/Dalfopristin SRifampin STetracycline STrimet hoprim/Sulfa SVancomycin S Result 1 Staphylococcus aureus Comments: Scant growthBased on susceptibility to oxacillin this isolate would besusceptible to:*Penicillinase-stable penicillins, such as: Cloxacillin, Dicloxacillin, Nafcillin*Beta-lactam combination agents, degroot (Abnormal) ch as: Amoxicillin-clavulanic acid, Ampicillin-sulbactam, Piperacillin- tazobactam*Oral cephems, such as: Cefaclor, Cefdinir, Cefpodoxime, Cefprozil, Cefuroxime, Cephalexin, Loracarbef*Parenteral cep hems, such as: Cefazolin, Cefepime, Cefotaxime, Cefotetan, Ceftaroline, Ceftizoxime, Ceftriaxone, Cefuroxime*Carbapenems, such as: Doripenem, Ertapenem, Imipenem, Meropenem Aerobic Bacterial Final report (Abnormal) Culture [id number] Aerobic Bacterial Culture Comments: L leg; PATIENT NOT FASTINGPERFORMED BY: [facility] Smcpyi5798 [facility] [id number] Information: LEFT LEG SRC:FL (36244) Antimicrobial MIHEAD (Normal) Comments: S = Susceptible; I = Intermediate; R = Resistant P = Positive; N = Negative MICS are expressed in micrograms per mL Antibiotic RSLT#1 RSLT#2 RS Susceptibility LT#3 RSLT#4Ciprofloxacin SClindamycin SErythromycin SGentamicin SLevofloxacin SLinezolid SMoxifloxacin SOxacillin SPenicillin RQuinupristin/Dalfopristin SRifampin STetracycline STrimet hoprim/Sulfa SVancomycin S Result 1 Staphylococcus aureus Comments: Moderate growthBased on susceptibility to oxacillin this isolate would besusceptible to:*Penicillinase-stable penicillins, such as: Cloxacillin, Dicloxacillin, Nafcillin*Beta-lactam combina tion agents, (Abnormal) such as: Amoxicillin-clavulanic acid, Ampicillin-sulbactam, Piperacillin- tazobactam*Oral cephems, such as: Cefaclor, Cefdinir, Cefpodoxime, Cefprozil, Cefuroxime, Cephalexin, Loracarbef*Parenteral cephems, such as: Cefazolin, Cefepime, Cefotaxime, Cefotetan, Ceftaroline, Ceftizoxime, Ceftriaxone, Cefuroxime*Carbapenems, such as: Doripenem, Ertapenem, Imipenem, Meropenem Aerobic Bacterial Final report Culture (Abnormal) Amylase 22 U/L (Abnormal) Comments: PATIENT NOT FASTINGPERFORMED BY: [facility] Xozqfb0476 [facility] [id number] 77870:17 Range: 31-124 Lipase 34 U/L (Normal) Comments: PATIENT NOT FASTINGPERFORMED BY: [facility] Bpohpj4804 [facility] [id number] 14260:17 Range: 14-72 Written Authorization WAR (Normal) Comments: PATIENT NOT FASTINGPERFORMED BY: [facility] Naowaq0413 [facility] [id number] 62230:17 Comments: Written Authorization Received.Authorization received from REJI SOMERS [id number] by Violet Gong 52-Esv-436345:17 C-REACTIVE PROTEIN (73779) Comments: PATIENT NOT FASTINGPERFORMED BY: [facility] Bstgew9880 [facility] [id number] C-Reactive Protein, Quant 17.9 mg/L (Abnormal) Range: 0.0-4.9 85-Fyb-646912:17 SED RATE ERYTHROCYTE (05444) Comments: PATIENT NOT FASTINGPERFORMED BY: [facility] Rqkclu8045 [facility] [id number] Sedimentation Rate-Westergren 77 mm/h (Abnormal) Range: 0-32 39-Cdn-884274:17 CBC W/AUTO DIFF WBC (63012) Comments: PATIENT NOT FASTINGPERFORMED BY: [facility] Uonvvl7102 [facility] [id number] Immature Grans (Abs) 0.0 {x10E3/uL} (Normal) Range: 0.0-0.1 Immature Granulocytes 0 % (Normal) Baso (Absolute) 0.1 {x10E3/uL} (Normal) Range: 0.0-0.2 Eos (Absolute) 0.4 {x10E3/uL} (Normal) Range: 0.0-0.4 Monocytes(Absolute) 0.6 {x10E3/uL} (Normal) Range: 0.1-0.9 Lymphs (Absolute) 3.5 {x10E3/uL} (Abnormal) Range: 0.7-3.1 Neutrophils (Absolute) 6.5 {x10E3/uL} (Normal) Range: 1.4-7.0 Basos 1 % (Normal) Eos 3 % (Normal) Monocytes 5 % (Normal) Lymphs 32 % (Normal) Neutrophils 59 % (Normal) Platelets 314 {x10E3/uL} (Normal) Range: 150-379 RDW 14.5 % (Normal) Range: 12.3-15.4 MCHC 31.7 g/dL (Normal) Range: 31.5-35.7 MCH 27.3 pg (Normal) Range: 26.6-33.0 MCV 86 fL (Normal) Range: 79-97 Hematocrit 40.1 % (Normal) Range: 34.0-46.6 Hemoglobin 12.7 g/dL (Normal) Range: 11.1-15.9 RBC 4.65 {x10E6/uL} (Normal) Range: 3.77-5.28 WBC 11.1 {x10E3/uL} (Abnormal) Range: 3.4-10.8 53-Lhl-768340:17 METABOLIC PANEL, COMPREHENSIVE Comments: PATIENT NOT FASTINGPERFORMED BY: [facility]20 [facility] [id number] (00658) ALT (SGPT) 35 [iU]/L (Abnormal) Range: 0-32 AST (SGOT) 36 [iU]/L (Normal) Range: 0-40 Alkaline Phosphatase 77 [iU]/L (Normal) Range: 39-117 Bilirubin, Total 0.2 mg/dL (Normal) Range: 0.0-1.2 A/G Ratio 1.3 (Normal) Range: 1.2-2.2 Globulin, Total 3.0 g/dL (Normal) Range: 1.5-4.5 Albumin 3.9 g/dL (Normal) Range: 3.5-5.5 Protein, Total 6.9 g/dL (Normal) Range: 6.0-8.5 Calcium 9.6 mg/dL (Normal) Range: 8.7-10.2 Carbon Dioxide, Total 25 mmol/L (Normal) Range: 20-29 Chloride 97 mmol/L (Normal) Range: 96-106 Potassium 4.3 mmol/L (Normal) Range: 3.5-5.2 Sodium 140 mmol/L (Normal) Range: 134-144 BUN/Creatinine Ratio 18 (Normal) Range: 9-23 eGFR If Africn Am 79 mL/min/1.73 (Normal) eGFR If NonAfricn Am 68 mL/min/1.73 (Normal) Creatinine 0.98 mg/dL (Normal) Range: 0.57-1.00 BUN 18 mg/dL (Normal) Range: 6-24 Glucose 124 mg/dL (Abnormal) Range: 65-99 31-Izw-035686:45 CBC-Complete Blood Cnt No Diff Comments: [facility] [address] [place], [place], [id number] MPV 10.5 fL (Normal) Range: 6.2-12.0 PLT 315 K/mm3 (Normal) Range: 150-450 RDW SD 46.3 fL (Abnormal) Range: 35.1-43.9 RDW CV 14.3 % (Normal) Range: 11.6-14.6 MCHC 31.3 {g/gl} (Abnormal) Range: 32-36 MCH 27.6 pg (Normal) Range: 27.0-32.0 MCV 88.4 fL (Normal) Range: 81-99 HCT 41.9 % (Normal) Range: 37-47 HGB 13.1 g/dL (Normal) Range: 12.0-15.0 RBC 4.74 {M/mm3} (Normal) Range: 4.2-5.4 WBC 11.0 K/mm3 (Normal) Range: 4.4-11.0 76-Xjo-444666:45 Protein+Creatinine Ratio,Urine Comments: [facility] [address] [facility] [place], [address] PROT:CRE RATIO 2991 {mg/g_CRE} (Abnormal) Range: 0-200 PROTEIN,UR.RAN. 193.2 mg/dL (Abnormal) UR CREAT 64.60 mg/dL (Normal) 66-Iwt-546084:45 PTHIN 38.7 pg/mL (Normal) Comments: [facility] [address] [place], [address] Range: 18.4-80.1 43-Ckh-169149:45 Renal Profile Comments: [facility] [address] [place], [address] CO2 25.0 mmol/L (Normal) Range: 21.0-32.0 CL 104 mmol/L (Normal) Range: 98-107 K 4.0 mmol/L (Normal) Range: 3.5-5.1 NA 138 mmol/L (Normal) Range: 136-145 PHOS 3.2 mg/dL (Normal) Range: 2.5-4.9 CA 9.0 mg/dL (Normal) Range: 8.5-10.1 ALB 3.1 g/dL (Abnormal) Range: 3.2-5.0 BUN/CRE 12.6 {RATIO} (Normal) Range: 10-20 EST GFR - AA 73 mL/min (Normal) Comments: GFR Calc EST GFR 61 mL/min (Normal) Comments: Non- GFR Calc CREAT,SERUM 1.03 mg/dL (Abnormal) Range: 0.55-1.02 Comments: The validity of the calculated GFR AND GFRAA in patients over70 years has not been determined. Clinical correlation isessential. BUN 13 mg/dL (Normal) Range: 7-18 GLU 150 mg/dL (Abnormal) Range: 74-106 Comments: Fasting Glucose result greater than or equal to 126 mg/dLsuggests DIABETES MELLITUS per A.D.A. criteria.Please note revised GLUCOSE reference range eyrocxnnu55/02/2018. 20-Ayc-497344:45 Vitamin D,25 Hydroxy Comments: [facility] [address] [place], [address] Vitamin D 25-OH 36.6 ng/mL (Normal) Range: 29.95-100.01 Comments: Vitamin D 25(OH) Status Range Deficiency <20 ng/mL (50nmol/L) Insuffciency 20 - 30 ng/mL (50 - 75 nmol/L) Sufficiency 30 - 100 ng/mL (75 - 250 nmol/L) Toxicity >100 ng/mL (>250 nmol/L) 3-Dso-894792:17 Hemoglobin A1c Comments: [facility] [address] [place], [id number] HGB A1C 6.4 % (Abnormal) Range: 4.2-6.3 5-Uqf-846908:11 CBC-Complete Blood Cnt No Diff Comments: [facility] [address] [place], [address] MPV 10.1 fL (Normal) Range: 6.2-12.0 PLT 240 K/mm3 (Normal) Range: 150-450 RDW SD 48.1 fL (Abnormal) Range: 35.1-43.9 RDW CV 15.0 % (Abnormal) Range: 11.6-14.6 MCHC 31.1 {g/gl} (Abnormal) Range: 32-36 MCH 27.7 pg (Normal) Range: 27.0-32.0 MCV 89.0 fL (Normal) Range: 81-99 HCT 39.5 % (Normal) Range: 37-47 HGB 12.3 g/dL (Normal) Range: 12.0-15.0 RBC 4.44 {M/mm3} (Normal) Range: 4.2-5.4 WBC 8.1 K/mm3 (Normal) Range: 4.4-11.0 1-Qeu-523618:11 Protein+Creatinine Ratio,Urine Comments: [facility] [address] [place], [address] PROT:CRE RATIO 1973 {mg/g_CRE} (Abnormal) Range: 0-200 PROTEIN,UR.RAN. 133.6 mg/dL (Abnormal) UR CREAT 67.70 mg/dL (Normal) 1-Ejw-725853:11 PTHIN 22.2 pg/mL (Normal) Comments: [facility] [address] [place], [id number] Range: 18.4-80.1 5-Xgg-458239:11 Renal Profile Comments: [facility] [address] [place], [address] CO2 24.0 mmol/L (Normal) Range: 21.0-32.0 CL 107 mmol/L (Normal) Range: 98-107 K 3.9 mmol/L (Normal) Range: 3.5-5.1 NA 140 mmol/L (Normal) Range: 136-145 PHOS 3.0 mg/dL (Normal) Range: 2.5-4.9 CA 8.8 mg/dL (Normal) Range: 8.5-10.1 ALB 3.0 g/dL (Abnormal) Range: 3.2-5.0 BUN/CRE 18.5 {RATIO} (Normal) Range: 10-20 EST GFR - AA 70 mL/min (Normal) Comments: GFR Calc EST GFR 58 mL/min (Abnormal) Comments: Non- GFR Calc CREAT,SERUM 1.08 mg/dL (Abnormal) Range: 0.55-1.02 Comments: The validity of the calculated GFR AND GFRAA in patients over70 years has not been determined. Clinical correlation isessential. BUN 20 mg/dL (Abnormal) Range: 7-18 GLU 175 mg/dL (Abnormal) Range: 74-106 Comments: Fasting Glucose result greater than or equal to 126 mg/dLsuggests DIABETES MELLITUS per A.D.A. criteria.Please note revised GLUCOSE reference range mtjhwvjbo10/02/2018. 9-Ixe-604483:11 Vitamin D,25 Hydroxy Comments: [facility] [address] [place], [id number] Vitamin D 25-OH 42.2 ng/mL (Normal) Range: 29.95-100.01 Comments: Vitamin D 25(OH) Status Range Deficiency <20 ng/mL (50nmol/L) Insuffciency 20 - 30 ng/mL (50 - 75 nmol/L) Sufficiency 30 - 100 ng/mL (75 - 250 nmol/L) Toxicity >100 ng/mL (>250 nmol/L) 84-Ghp-763922:20 Urinalysis, Complete Comments: Order Date: 10/20/17Has pt arrived? YHow was Urine Obtained? [facility] [address]ani[address] [facility] [place], [address] MUCUS, URINE 0 SEEN {/hpf} (Normal) BACTERIA RARE {/hpf} (Normal) SQUAM EPI 0-5 SEEN {/hpf} (Normal) Range: 5-10 RBC-UA 0 SEEN {/hpf} (Normal) Range: 0-5 WBC 0-5 SEEN {/hpf} (Normal) Range: 0-5 LEUK ESTERASE Negative /ul (Normal) OCCULT BLOOD-UR 10 /ul (Abnormal) NITRITE UR Negative (Normal) UROBILI Normal mg/dL (Normal) PROT DIPSTX 100 mg/dL (Abnormal) pH UR 6.5 (Normal) Range: 5.0 - 8.0 SP.GR. DIPSTX 1.010 (Normal) Range: 1.002-1.030 KETONE UR Negative mg/dL (Normal) BILIRUBIN URINE Negative mg/dL (Normal) GLUCOSE, UR Normal mg/dL (Normal) CLARITY Clear (Normal) COLOR Yellow (Normal) 02-Ing-340561:20 CBC W/Diff, Automated Comments: [facility] [address] [facility] [address] [place], [place], [id number] Absolute Lymph 2.39 {X10_3/ul} (Normal) Range: 0.83-4.51 Absolute Neut 3.9 {X10_3/uL} (Normal) Range: 2.0-7.7 IM GRAN % 0.100 % (Normal) Range: 0.0-0.9 Comments: IG% - Immature Granulocytes (promyelocytes, myelocytes andmetamyelocytes) > 1% indicates that a LEFT SHIFT is Present. BASO% 0.6 % (Normal) Range: 0-1 EO% 2.9 % (Normal) Range: 0-5 MONO% 5.9 % (Normal) Range: 0-10 LY% 34.4 % (Normal) Range: 19-41 NEUT% 56.1 % (Normal) Range: 47-70 MPV 10.0 fL (Normal) Range: 6.2-12.0 PLT 245 K/mm3 (Normal) Range: 150-450 RDW SD 46.6 fL (Abnormal) Range: 35.1-43.9 RDW CV 14.9 % (Abnormal) Range: 11.6-14.6 MCHC 31.6 {g/gl} (Abnormal) Range: 32-36 MCH 27.3 pg (Normal) Range: 27.0-32.0 MCV 86.2 fL (Normal) Range: 81-99 HCT 39.2 % (Normal) Range: 37-47 HGB 12.4 g/dL (Normal) Range: 12.0-15.0 RBC 4.55 {M/mm3} (Normal) Range: 4.2-5.4 WBC 7.0 K/mm3 (Normal) Range: 4.4-11.0 35-Ldd-143405:20 Comprehensive Metabolic Profil Comments: [facility] [address] [place], [place], [id number] GAP 10 (Normal) Range: 5-15 CO2 25.0 mmol/L (Normal) Range: 21.0-32.0 CL 104 mmol/L (Normal) Range: 98-107 K 3.4 mmol/L (Abnormal) Range: 3.5-5.1 NA 139 mmol/L (Normal) Range: 136-145 T BILI 0.30 mg/dL (Normal) Range: 0.20-1.00 ALT 42 U/L (Normal) Range: 13-56 ALK P 77 U/L (Normal) Range: 45-117 AST 32 U/L (Normal) Range: 15-37 CA 8.7 mg/dL (Normal) Range: 8.5-10.1 A/G 0.7 {RATIO} (Abnormal) Range: 0.9-2.4 GLOB 4.4 g/dL (Abnormal) Range: 2.2-4.2 ALB 3.0 g/dL (Abnormal) Range: 3.2-5.0 T PROT 7.4 g/dL (Normal) Range: 6.4-8.2 BUN/CRE 12.0 {RATIO} (Normal) Range: 10-20 Estimated CRCL 41.84 ml/min (Normal) EST GFR - AA 51 mL/min (Abnormal) Comments: GFR Calc EST GFR 42 mL/min (Abnormal) Comments: Non- GFR Calc CREAT,SERUM 1.42 mg/dL (Abnormal) Range: 0.55-1.02 Comments: The validity of the calculated GFR AND GFRAA in patients over70 years has not been determined. Clinical correlation isessential. BUN 17 mg/dL (Normal) Range: 7-18 GLU 161 mg/dL (Abnormal) Range: 74-106 Comments: Fasting Glucose result greater than or equal to 126 mg/dLsuggests DIABETES MELLITUS per A.D.A. criteria.Please note revised GLUCOSE reference range yehvlhnkx60/02/2018. 8-Kcx-882759:52 Culture, Urine Comments: [facility] [address] [place], [place], [address] CUUR See Note (Normal) Comments: Urine CultureORGANISM 1: Escherichia coliColony Count >100,000 Escherichia coli: REACTION Amoxacillin/Clavulanic Acid $ 4 S Ampic illin $ >=32 R Ampicillin/Sulbactam $ 16 I Cefazolin $ <=4 S Cefepime $ <=1 S Ceftriaxone $ <=1 S Ciprofloxacin $ >=4 R ESBL - Ertapenim $$$ <=0.5 S Gentamicin $ <=1 S Imipenem *NF <=0.25 S Levofloxacin $ >=8 R Nitrofuranto in $ 32 S Piperacillin/Tazobactam $$ <=4 S Tobramycin $ <=1 S Trimethoprim/Sulfametho $ <=20 S(NF) indicates non-formulary drug at [facility]. Approval by Infectious Disease Specialist required before non-formulary drugs may be ordered and/or dispensed. 37-Wrn-977965:38 CBC-Complete Blood Cnt No Diff Comments: [facility] [address] [place], [place], [id number] MPV 10.3 fL (Normal) Range: 6.2-12.0 PLT 258 K/mm3 (Normal) Range: 150-450 RDW SD 48.3 fL (Abnormal) Range: 35.1-43.9 RDW CV 15.2 % (Abnormal) Range: 11.6-14.6 MCHC 32.2 {g/gl} (Normal) Range: 32-36 MCH 27.8 pg (Normal) Range: 27.0-32.0 MCV 86.5 fL (Normal) Range: 81-99 HCT 41.0 % (Normal) Range: 37-47 HGB 13.2 g/dL (Normal) Range: 12.0-15.0 RBC 4.74 {M/mm3} (Normal) Range: 4.2-5.4 WBC 7.7 K/mm3 (Normal) Range: 4.4-11.0 95-Xsb-688110:38 Protein+Creatinine Ratio,Urine Comments: [facility] [address] [place], [id number] PROT:CRE RATIO 2487 {mg/g_CRE} (Abnormal) Range: 0-200 PROTEIN,UR.RAN. 318.3 mg/dL (Abnormal) UR CREAT 128.00 mg/dL (Normal) 12-Hyj-572102:38 PTHIN 32.3 pg/mL (Normal) Comments: [facility] [address] [place], [id number] Range: 18.4-80.1 25-Ulw-856373:38 Renal Profile Comments: [facility] [address] [place], [id number] CO2 24.0 mmol/L (Normal) Range: 21.0-32.0 CL 108 mmol/L (Abnormal) Range: 98-107 K 3.9 mmol/L (Normal) Range: 3.5-5.1 NA 139 mmol/L (Normal) Range: 136-145 PHOS 3.5 mg/dL (Normal) Range: 2.5-4.9 CA 8.9 mg/dL (Normal) Range: 8.5-10.1 ALB 2.8 g/dL (Abnormal) Range: 3.2-5.0 BUN/CRE 13.1 {RATIO} (Normal) Range: 10-20 EST GFR - AA 70 mL/min (Normal) Comments: GFR Calc EST GFR 58 mL/min (Abnormal) Comments: Non- GFR Calc CREAT,SERUM 1.07 mg/dL (Abnormal) Range: 0.55-1.02 Comments: The validity of the calculated GFR AND GFRAA in patients over70 years has not been determined. Clinical correlation isessential. BUN 14 mg/dL (Normal) Range: 7-18 GLU 130 mg/dL (Abnormal) Range: 74-106 Comments: Fasting Glucose result greater than or equal to 126 mg/dLsuggests DIABETES MELLITUS per A.D.A. criteria.Please note revised GLUCOSE reference range cpqdewzmz41/02/2018. 47-Hsy-550106:38 Vitamin D,25 Hydroxy Comments: [facility] [address] [place], [address] Vitamin D 25-OH 38.5 ng/mL (Normal) Range: 29.95-100.01 Comments: Vitamin D 25(OH) Status Range Deficiency <20 ng/mL (50nmol/L) Insuffciency 20 - 30 ng/mL (50 - 75 nmol/L) Sufficiency 30 - 100 ng/mL (75 - 250 nmol/L) Toxicity >100 ng/mL (>250 nmol/L) 40-Oll-466543:35 Comprehensive Metabolic Profil Comments: [facility] [address] [place], [id number] GAP 9 (Normal) Range: 5-15 CO2 26.0 mmol/L (Normal) Range: 21.0-32.0 CL 107 mmol/L (Normal) Range: 98-107 K 3.6 mmol/L (Normal) Range: 3.5-5.1 NA 142 mmol/L (Normal) Range: 136-145 T BILI 0.30 mg/dL (Normal) Range: 0.20-1.00 ALT 42 U/L (Normal) Range: 13-56 ALK P 78 U/L (Normal) Range: 45-117 AST 33 U/L (Normal) Range: 15-37 CA 8.7 mg/dL (Normal) Range: 8.5-10.1 A/G 0.6 {RATIO} (Abnormal) Range: 0.9-2.4 GLOB 4.8 g/dL (Abnormal) Range: 2.2-4.2 ALB 2.9 g/dL (Abnormal) Range: 3.2-5.0 T PROT 7.7 g/dL (Normal) Range: 6.4-8.2 BUN/CRE 14.3 {RATIO} (Normal) Range: 10-20 EST GFR - AA 67 mL/min (Normal) Comments: GFR Calc EST GFR 55 mL/min (Abnormal) Comments: Non- GFR Calc CREAT,SERUM 1.12 mg/dL (Abnormal) Range: 0.55-1.02 Comments: The validity of the calculated GFR AND GFRAA in patients over70 years has not been determined. Clinical correlation isessential. BUN 16 mg/dL (Normal) Range: 7-18 GLU 146 mg/dL (Abnormal) Range: 74-106 Comments: Fasting Glucose result greater than or equal to 126 mg/dLsuggests DIABETES MELLITUS per A.D.A. criteria.Please note revised GLUCOSE reference range qiihnaggs38/02/2018. 07-Jul-20179:31 Bedside Glucose Comments: [facility] [address] [place] [address] BEDSIDE GLU 133 mg/dL (Abnormal) Range: 70-110 Comments: MANAGEMENT OF PATIENT CARE PER NURSING PROTOCOL 67-Env-208733:01 HGB A1C (32386) Comments: PATIENT WAS FASTINGPERFORMED BY: [facility] [address]iezs3148 [facility] [id number] Hemoglobin A1c 6.2 % (Abnormal) Range: 4.8-5.6 Comments: . Pre-diabetes: 5.7 - 6.4 Diabetes: >6.4 Glycemic control for adults with diabetes: <7.0 [id number] Basic Metabolic Profile (BMP) Comments: [facility] [id number] [facility] [address] [place], [place], [id number] GAP 10 (Normal) Range: 5-15 CO2 22.0 mmol/L (Normal) Range: 21.0-32.0 CL 110 mmol/L (Abnormal) Range: 98-107 K 2.7 mmol/L (Abnormal) Range: 3.5-5.1 NA 142 mmol/L (Normal) Range: 136-145 Comments: Critical Result(s) Called at: 18:00:26 06/20/2017 by:Kenyon baird [place] 8.6 mg/dL (Normal) Range: 8.5-10.1 BUN/CRE 12.4 {RATIO} (Normal) Range: 10-20 Estimated CRCL 49.63 ml/min (Normal) EST GFR - AA 61 mL/min (Normal) Comments: GFR Calc EST GFR 51 mL/min (Abnormal) Comments: Non- GFR Calc CREAT,SERUM 1.21 mg/dL (Abnormal) Range: 0.55-1.02 Comments: The validity of the calculated GFR AND GFRAA in patients over70 years has not been determined. Clinical correlation isessential. BUN 15 mg/dL (Normal) Range: 7-18 GLU 115 mg/dL (Abnormal) Range: 74-106 Comments: Fasting Glucose result from 100 to 125 mg/dLsuggests IMPAIRED HOMEOSTASIS per A.D.A. criteria.Please note revised GLUCOSE reference range /02/2018. [id number] CBC W/Diff, Automated Comments: [facility] [id number] [place], [place], [id number] SMEAR COMMENT SCANNED (Normal) Absolute Lymph 4.73 {X10_3/ul} (Abnormal) Range: 0.83-4.51 Absolute Neut 5.2 {X10_3/uL} (Normal) Range: 2.0-7.7 IM GRAN % 0.200 % (Normal) Range: 0.0-0.9 Comments: IG% - Immature Granulocytes (promyelocytes, myelocytes andmetamyelocytes) > 1% indicates that a LEFT SHIFT is Present. BASO% 1.2 % (Abnormal) Range: 0-1 EO% 2.6 % (Normal) Range: 0-5 MONO% 7.3 % (Normal) Range: 0-10 LY% 42.2 % (Abnormal) Range: 19-41 NEUT% 46.5 % (Abnormal) Range: 47-70 MPV 10.6 fL (Normal) Range: 6.2-12.0 PLT 294 K/mm3 (Normal) Range: 150-450 RDW SD 44.6 fL (Abnormal) Range: 35.1-43.9 RDW CV 14.3 % (Normal) Range: 11.6-14.6 MCHC 32.2 {g/gl} (Normal) Range: 32-36 MCH 27.5 pg (Normal) Range: 27.0-32.0 MCV 85.5 fL (Normal) Range: 81-99 HCT 41.3 % (Normal) Range: 37-47 HGB 13.3 g/dL (Normal) Range: 12.0-15.0 RBC 4.83 {M/mm3} (Normal) Range: 4.2-5.4 WBC 11.2 K/mm3 (Abnormal) Range: 4.4-11.0 20-Xnu-817492:00 Urinalysis, Complete Comments: Order Date: 06/20/17Has pt arrived? YHow was Urine Obtained? CLEAN [facility] [address] [place], [place], [id number] MUCUS, URINE 0 SEEN {/hpf} (Normal) BACTERIA 2+ {/hpf} (Normal) SQUAM EPI 5-10 SEEN {/hpf} (Normal) Range: 5-10 RBC-UA 0-5 SEEN {/hpf} (Normal) Range: 0-5 WBC 50-100 SEEN {/hpf} (Normal) Range: 0-5 LEUK ESTERASE 500 /ul (Abnormal) OCCULT BLOOD-UR 150 /ul (Abnormal) NITRITE UR Positive (Abnormal) UROBILI Normal mg/dL (Normal) PROT DIPSTX 100 mg/dL (Abnormal) pH UR 6.0 (Normal) Range: 5.0 - 8.0 SP.GR. DIPSTX 1.015 (Normal) Range: 1.002-1.030 KETONE UR Negative mg/dL (Normal) BILIRUBIN URINE Negative mg/dL (Normal) GLUCOSE, UR Normal mg/dL (Normal) CLARITY Sl. Cloudy (Normal) COLOR Yellow (Normal) 23-Due-93206:33 Influenza A&B Viral Comments: PATIENT NOT FASTINGPERFORMED BY: [facility] Azerhi0132 [facility] [id number] Information: SRC:NL Culture ([id number]) Viral Culture,Rapid,Influenza FLUABN (Normal) Comments: Negative:No Influenza A or B detected. 61-Ihz-689809:38 Blood Glucose , Office (40074) Blood Glucose , Office 123 (Normal) 53-Qkn-870082:04 Basic Metabolic Profile (BMP) Comments: [facility] [address] [place] [place], [place], [address] GAP 10 (Normal) Range: 5-15 CO2 24.0 mmol/L (Normal) Range: 21.0-32.0 CL 107 mmol/L (Normal) Range: 98-107 K 3.6 mmol/L (Normal) Range: 3.5-5.1 NA 141 mmol/L (Normal) Range: 136-145 CA 8.5 mg/dL (Normal) Range: 8.5-10.1 BUN/CRE 16.5 {RATIO} (Normal) Range: 10-20 EST GFR - AA 79 mL/min (Normal) Comments: GFR Calc EST GFR 65 mL/min (Normal) Comments: Non- GFR Calc CREAT,SERUM 0.97 mg/dL (Normal) Range: 0.55-1.02 Comments: The validity of the calculated GFR AND GFRAA in patients over70 years has not been determined. Clinical correlation isessential. BUN 16 mg/dL (Normal) Range: 7-18 GLU 153 mg/dL (Abnormal) Range: 74-106 Comments: Fasting Glucose result greater than or equal to 126 mg/dLsuggests DIABETES MELLITUS per A.D.A. criteria.Please note revised GLUCOSE reference range bsyoqasuz34/02/2018. 13-Dxr-806911:04 Microalb:Creat Ratio,Random UR Comments: [facility] [address] [place], [place], [address] MALB:CREAT 2009.4 {mg/g_CRE} (Abnormal) MICROALBUMIN,UR 2150.0 mg/L (Normal) UR CREAT 107.00 mg/dL (Normal) 87-Sul-748660:08 Basic Metabolic Profile (BMP) Comments: [facility] [address] [place], [address] GAP 7 (Normal) Range: 5-15 CO2 26.0 mmol/L (Normal) Range: 21.0-32.0 CL 108 mmol/L (Abnormal) Range: 98-107 K 3.6 mmol/L (Normal) Range: 3.5-5.1 NA 141 mmol/L (Normal) Range: 136-145 CA 8.5 mg/dL (Normal) Range: 8.5-10.1 BUN/CRE 18.5 {RATIO} (Normal) Range: 10-20 Estimated CRCL 65.28 ml/min (Normal) EST GFR - AA 84 mL/min (Normal) Comments: GFR Calc EST GFR 69 mL/min (Normal) Comments: Non- GFR Calc CREAT,SERUM 0.92 mg/dL (Normal) Range: 0.55-1.02 Comments: The validity of the calculated GFR AND GFRAA in patients over70 years has not been determined. Clinical correlation isessential. BUN 17 mg/dL (Normal) Range: 7-18 GLU 92 mg/dL (Normal) Range: 70-110 46-Pqc-789199:08 CBC W/Diff, Automated Comments: [facility] [address] [place], [place], [id number] Absolute Lymph 2.98 {X10_3/ul} (Normal) Range: 0.83-4.51 Absolute Neut 4.6 {X10_3/uL} (Normal) Range: 2.0-7.7 IM GRAN % 0.200 % (Normal) Range: 0.0-0.9 Comments: IG% - Immature Granulocytes (promyelocytes, myelocytes andmetamyelocytes) > 1% indicates that a LEFT SHIFT is Present. BASO% 0.8 % (Normal) Range: 0-1 EO% 3.3 % (Normal) Range: 0-5 MONO% 3.9 % (Normal) Range: 0-10 LY% 36.0 % (Normal) Range: 19-41 NEUT% 55.8 % (Normal) Range: 47-70 MPV 10.4 fL (Normal) Range: 6.2-12.0 PLT 250 K/mm3 (Normal) Range: 150-450 RDW SD 45.6 fL (Abnormal) Range: 35.1-43.9 RDW CV 14.2 % (Normal) Range: 11.6-14.6 MCHC 31.7 {g/gl} (Abnormal) Range: 32-36 MCH 28.1 pg (Normal) Range: 27.0-32.0 MCV 88.8 fL (Normal) Range: 81-99 HCT 38.2 % (Normal) Range: 37-47 HGB 12.1 g/dL (Normal) Range: 12.0-15.0 RBC 4.30 {M/mm3} (Normal) Range: 4.2-5.4 WBC 8.3 K/mm3 (Normal) Range: 4.4-11.0 32-Nzw-852656:08 CPK Total, Creatine Kinase Comments: [facility] [address] [place], [address] CPK TOTAL 79 U/L (Normal) Range: 26-192 65-Upp-522973:46 URINE BEULAH CULTURE-IDENTIFICATN Comments: PATIENT NOT FASTINGPERFORMED BY: [facility] [employer] Lhwyyq6962 [facility] [id number] Information: SRC: ([id number]) Result 2 BETAGB (Abnormal) Comments: Beta hemolytic Streptococcus, group B50,000- 100,000 colony forming units per mLPenicillin and ampicillin are drugs of choice for treatment ofbeta-hemolytic streptococcal infections. Susceptibility testi ng ofpenicillins and other beta-lactam agents approved by the FDA fortreatment of beta-hemolytic streptococcal infections need not beperformed routinely because nonsusceptible isolates are extremelyrare in any beta-hemolytic streptococcus and have not been reportedfor Streptococcus pyogenes (group A). (CLSI 2011) S = Susceptible; I = Intermediate; R = Resistant P = Positiv e; N = Negative MICS are expressed in micrograms per mL Antibiotic RSLT#1 RSLT#2 RSLT#3 RSLT#4Amoxicillin/Clavulanic Acid SAmpicillin RCefazo vinnie RCefepime SCeftriaxone RCefuroxime RCephalothin RCiprofloxacin SErtapenem SGentamicin SImipenem SLevofloxacin SNitrofurantoin SPiperacillin RTetracycline STobramycin STrimethoprim/Sulfa S Result 1 Escherichia coli Comments: 25,000-50,000 colony forming units per mL (Abnormal) Urine Final report (Abnormal) Culture,Comprehenssolis hines 89-Mgi-975948:49 Urinalysis, Office (22998) UA - LEUKOCYTE ESTERASE Negative (Normal) UA - NITRITE Negative (Normal) URINE UROBILINGN GENNA TIMED Normal mg/dL (Normal) UA - PROTEIN 300 mg/dL (Normal) UA - PH 7.5 (Normal) UA - BLOOD Non Hemolyzed Moderate (Normal) UA - SPECIFIC GRAVITY 1.025 (Normal) UA - KETONES Negative mg/dL (Normal) UA - BILIRUBIN Negative (Normal) UA - GLUCOSE Negative (Normal) 82-Iow-860858:24 TSH (57394) Comments: PATIENT WAS FASTINGPERFORMED BY: [facility] 2666[address] [facility] [id number] TSH 1.790 {uIU/mL} (Normal) Range: 0.450-4.500 08-Yue-482417:24 METABOLIC PANEL, COMPREHENSIVE Comments: PATIENT WAS FASTINGPERFORMED BY: [facility]6370 [facility] [id number] (19521) ALT (SGPT) 37 [iU]/L (Abnormal) Range: 0-32 AST (SGOT) 31 [iU]/L (Normal) Range: 0-40 Alkaline Phosphatase, S 75 [iU]/L (Normal) Range: 39-117 Bilirubin, Total <0.2 mg/dL (Normal) Range: 0.0-1.2 A/G Ratio 1.2 (Normal) Range: 1.2-2.2 Globulin, Total 2.9 g/dL (Normal) Range: 1.5-4.5 Albumin, Serum 3.4 g/dL (Abnormal) Range: 3.5-5.5 Protein, Total, Serum 6.3 g/dL (Normal) Range: 6.0-8.5 Calcium, Serum 9.0 mg/dL (Normal) Range: 8.7-10.2 Carbon Dioxide, Total 23 mmol/L (Normal) Range: 18-29 Chloride, Serum 105 mmol/L (Normal) Range: 96-106 Potassium, Serum 3.7 mmol/L (Normal) Range: 3.5-5.2 Sodium, Serum 144 mmol/L (Normal) Range: 134-144 BUN/Creatinine Ratio 15 (Normal) Range: 9-23 eGFR If Africn Am 92 mL/min/1.73 (Normal) eGFR If NonAfricn Am 80 mL/min/1.73 (Normal) Creatinine, Serum 0.87 mg/dL (Normal) Range: 0.57-1.00 BUN 13 mg/dL (Normal) Range: 6-24 Glucose, Serum 99 mg/dL (Normal) Range: 65-99 55-Ihr-734890:24 CBC W/AUTO DIFF WBC (06108) Comments: PATIENT WAS FASTINGPERFORMED BY: [facility]6370 [facility] [id number] Immature Grans (Abs) 0.0 {x10E3/uL} (Normal) Range: 0.0-0.1 Immature Granulocytes 0 % (Normal) Baso (Absolute) 0.1 {x10E3/uL} (Normal) Range: 0.0-0.2 Eos (Absolute) 0.5 {x10E3/uL} (Abnormal) Range: 0.0-0.4 Monocytes(Absolute) 0.6 {x10E3/uL} (Normal) Range: 0.1-0.9 Lymphs (Absolute) 3.3 {x10E3/uL} (Abnormal) Range: 0.7-3.1 Neutrophils (Absolute) 5.0 {x10E3/uL} (Normal) Range: 1.4-7.0 Basos 1 % (Normal) Eos 5 % (Normal) Monocytes 6 % (Normal) Lymphs 34 % (Normal) Neutrophils 54 % (Normal) Platelets 295 {x10E3/uL} (Normal) Range: 150-379 RDW 14.4 % (Normal) Range: 12.3-15.4 MCHC 31.3 g/dL (Abnormal) Range: 31.5-35.7 MCH 27.3 pg (Normal) Range: 26.6-33.0 MCV 87 fL (Normal) Range: 79-97 Hematocrit 38.6 % (Normal) Range: 34.0-46.6 Hemoglobin 12.1 g/dL (Normal) Range: 11.1-15.9 RBC 4.43 {x10E6/uL} (Normal) Range: 3.77-5.28 WBC 9.4 {x10E3/uL} (Normal) Range: 3.4-10.8 96-Okm-868539:24 LIPID PANEL (39455) Comments: PATIENT WAS FASTINGPERFORMED BY: [facility]bmpmy4301 [facility] [id number] LDL/HDL Ratio 1.8 {ratio_units} (Normal) Range: 0.0-3.2 Comments: LDL/HDL Ratio Men Women 1/2 Avg.Risk 1.0 1.5 Av g.Risk 3.6 3.2 2X Avg.Risk 6.2 5.0 3X Avg.Risk 8.0 6.1 LDL Cholesterol Calc 75 mg/dL (Normal) Range: 0-99 VLDL Cholesterol Juliocesar 52 mg/dL (Abnormal) Range: 5-40 HDL Cholesterol 42 mg/dL (Normal) Triglycerides 258 mg/dL (Abnormal) Range: 0-149 Cholesterol, Total 169 mg/dL (Normal) Range: 100-199 62-Ilw-023757:24 CALCIFEDIOL (50247) Comments: PATIENT WAS FASTINGPERFORMED BY: [facility] Togqbs0464 [facility] [id number] Vitamin D, 25-Hydroxy 44.2 ng/mL (Normal) Range: 30.0-100.0 Comments: Vitamin D deficiency has been defined by the [place] of[place]icine and an Endocrine Society practice guideline as alevel of serum 25-OH vitamin D less than 20 ng/mL (1,2).The Endocrine Society went on to further define vitamin Dinsufficiency as a level between 21 and 29 ng/mL (2).1. IOM ([place] of [employer]). 2010. Dietary reference intakes for calcium and D. [place]: The National Academies Press.2. Miles MF, Tri MITCHELL, Juan Francisco SHEETS, et al. Evaluation, treatment, and prevention of vitamin D deficiency: an Endocrine Society clinical practice guideline. JCEM. 2010; 96(7):1911-30. 36-Etq-976017:15 HgA1C , Office (95535) HgA1C , Office 6.0 % (Normal) Range: 4.6 - 7.1 :15 Blood Glucose , Office (70621) Blood Glucose , Office 103 (Normal) :45 Bedside Glucose Comments: [facility] LaboratoryPoint of [address] [place], [place] [id number] BEDSIDE GLU 134 mg/dL (Abnormal) Range: 70-110 Comments: MANAGEMENT OF PATIENT CARE PER NURSING PROTOCOL 14-Stp-612161:04 ANCA Comments: Is Patient Fasting? [facility] (refer to report for specific site)refer to report for address and phone number Atypical pANCA <1:20 {titer} (Normal) Comments: The atypical pANCA pattern has been observed in asignificant percentage of patients with ulcerative colitis,primary sclerosing cholangitis and autoimmune hepatitis. PERINUCLEAR Ab <1:20 {titer} (Normal) Comments: The presence of positive fluorescence exhibiting P-ANCA orC-ANCA patterns alone is not specific for the diagnosis ofWegener's Granulomatosis (WG) or microscopic polyangiitis.Decisions about treatment sh ould not be based solely onANCA IFA results. The International ANCA Group Consensusrecommends follow up testing of positive sera with both VA-3 and MPO- ANCA enzyme immunoassays. As many as 5% serumsamp les are positive only by EIA. Ref. AM J Clin Xyivzj9503;111:507-513. CYTOPLASMIC Ab <1:20 {titer} (Normal) 87-Pxn-021224:04 Anti-dsDNA Ab Comments: [facility] (refer to report for specific site)refer to report for address and phone number dsDNA AB <1 {IU/mL} (Normal) Range: 0-9 Comments: Negative <5 Equivocal 5 - 9 Positive >9Performed at: [facility] [address] [id number] D irector: Jonathan Khan PhD, Phone: [phone] 14-Tin-016056:04 Basic Metabolic Profile (BMP) Comments: PLEASE ADD BMP TO BLOOD FROM [facility] [address] [place], [place], [id number] GAP 8 (Normal) Range: 5-15 CO2 25.0 mmol/L (Normal) Range: 21.0-32.0 CL 105 mmol/L (Normal) Range: 98-107 K 4.0 mmol/L (Normal) Range: 3.5-5.1 NA 138 mmol/L (Normal) Range: 136-145 CA 8.6 mg/dL (Normal) Range: 8.5-10.1 BUN/CRE 28.0 {RATIO} (Abnormal) Range: 10-20 EST GFR - AA 76 mL/min (Normal) Comments: GFR Calc EST GFR 63 mL/min (Normal) Comments: Non- GFR Calc CREAT,SERUM 1.00 mg/dL (Normal) Range: 0.55-1.02 Comments: The validity of the calculated GFR AND GFRAA in patients over70 years has not been determined. Clinical correlation isessential. BUN 28 mg/dL (Abnormal) Range: 7-18 GLU 161 mg/dL (Abnormal) Range: 70-110 Comments: Fasting Glucose result greater than or equal to 126 mg/dLsuggests DIABETES MELLITUS per A.D.A. criteria. 69-Apx-299977:04 CBC W/Diff, Automated Comments: [facility] [address] [place], [place], [id number] Absolute Lymph 2.35 {X10_3/ul} (Normal) Range: 0.83-4.51 Absolute Neut 7.0 {X10_3/uL} (Normal) Range: 2.0-7.7 IM GRAN % 0.500 % (Normal) Range: 0.0-0.9 Comments: IG% - Immature Granulocytes (promyelocytes, myelocytes andmetamyelocytes) > 1% indicates that a LEFT SHIFT is Present. BASO% 0.4 % (Normal) Range: 0-1 EO% 2.8 % (Normal) Range: 0-5 MONO% 5.3 % (Normal) Range: 0-10 LY% 22.9 % (Normal) Range: 19-41 NEUT% 68.1 % (Normal) Range: 47-70 MPV 10.1 fL (Normal) Range: 6.2-12.0 PLT 248 K/mm3 (Normal) Range: 150-450 RDW SD 49.1 fL (Abnormal) Range: 35.1-43.9 RDW CV 15.4 % (Abnormal) Range: 11.6-14.6 MCHC 31.4 {g/gl} (Abnormal) Range: 32-36 MCH 27.8 pg (Normal) Range: 27.0-32.0 MCV 88.8 fL (Normal) Range: 81-99 HCT 42.1 % (Normal) Range: 37-47 HGB 13.2 g/dL (Normal) Range: 12.0-15.0 RBC 4.74 {M/mm3} (Normal) Range: 4.2-5.4 WBC 10.2 K/mm3 (Normal) Range: 4.4-11.0 06-Pht-557730:04 Complement C3 Comments: Is Patient Fasting? [facility] (refer to report for specific site)refer to report for address and phone number COMP C3 187 mg/dL (Abnormal) Range: 82-167 Comments: Performed at: [address] [id number] Director: Jonathan Khan PhD, Phone: [phone] 73-Mse-888630:04 Complement C4 Comments: Is Patient Fasting? [facility] (refer to report for specific site)refer to report for address and phone number COMP C4 24 mg/dL (Normal) Range: 14-44 28-Gub-389233:04 SHAYLEE + Protein Elect, Serum Comments: Is Patient Fasting? [facility] (refer to report for specific site)refer to report for address and phone number NOTE: Comment (Normal) Comments: Protein electrophoresis scan will follow via computer,mail, or nursery school teacher delivery. SHAYLEE RESULT,S Comment (Normal) Comments: No monoclonality detected. A/G RATIO 1.1 (Normal) Range: 0.7-1.7 GLOBULIN, TOTAL 2.9 g/dL (Normal) Range: 2.2-3.9 M-SPIKE g/dL (Normal) Comments: Not Observed GAMMA GLOBULIN 0.7 g/dL (Normal) Range: 0.4-1.8 BETA GLOBULIN 1.0 g/dL (Normal) Range: 0.7-1.3 EQFPW-9-VBSW 1.0 g/dL (Normal) Range: 0.4-1.0 DKVWN-4-BKIJ 0.2 g/dL (Normal) Range: 0.0-0.4 ALBUMIN 3.1 g/dL (Normal) Range: 2.9-4.4 IMMUNOGL M 94 mg/dL (Normal) Range: 26-217 IMMUNO A 204 mg/dL (Normal) Range: 87-352 IMMUNO G 703 mg/dL (Normal) Range: 700-1600 PROTEIN,TOTAL 6.0 g/dL (Normal) Range: 6.0-8.5 25-Yiv-212944:04 Partial Thromboplast Time Comments: [facility] [address] [place], [place], [address] PTT 23.1 s (Abnormal) Range: 24.1-36.2 42-Mth-699450:04 Protein+Creatinine Ratio,Urine Comments: [facility] [address] [place], [address] PROT:CRE RATIO 1806 {mg/g_CRE} (Abnormal) Range: 0-200 PROTEIN,UR.RAN. 209.5 mg/dL (Abnormal) UR CREAT 116.00 mg/dL (Normal) 08-Msg-805440:04 Prothrombin Time w/INR Comments: [facility] [address] [place], [id number] INR 1.0 (Normal) PROTIME 12.7 s (Normal) Range: 11.7-14.9 31-Mul-620980:00 Basic Metabolic Profile (BMP) Comments: [facility] [address] [place], [address] GAP 9 (Normal) Range: 5-15 CO2 24.0 mmol/L (Normal) Range: 21.0-32.0 CL 106 mmol/L (Normal) Range: 98-107 K 3.6 mmol/L (Normal) Range: 3.5-5.1 NA 139 mmol/L (Normal) Range: 136-145 CA 8.6 mg/dL (Normal) Range: 8.5-10.1 BUN/CRE 18.1 {RATIO} (Normal) Range: 10-20 EST GFR - AA 72 mL/min (Normal) Comments: GFR Calc EST GFR 60 mL/min (Normal) Comments: Non- GFR Calc CREAT,SERUM 1.05 mg/dL (Abnormal) Range: 0.55-1.02 Comments: The validity of the calculated GFR AND GFRAA in patients over70 years has not been determined. Clinical correlation isessential. BUN 19 mg/dL (Abnormal) Range: 7-18 GLU 171 mg/dL (Abnormal) Range: 70-110 Comments: Fasting Glucose result greater than or equal to 126 mg/dLsuggests DIABETES MELLITUS per A.D.A. criteria. 27-Dzm-040602:00 Magnesium Comments: [facility] [address] [place], [address] MG 2.0 mg/dL (Normal) Range: 1.8-2.4 97-Odf-547026:47 HGB A1C (87417) Comments: PATIENT NOT FASTINGPERFORMED BY: [facility] Fzgjfu8189 [facility] [id number] Hemoglobin A1c 6.2 % (Abnormal) Range: 4.8-5.6 Comments: . Pre-diabetes: 5.7 - 6.4 Diabetes: >6.4 Glycemic control for adults with diabetes: <7.0 17-Eva-910245:54 Basic Metabolic Profile (BMP) Comments: [facility] [address] [place], [place], [id number] GAP 7 (Normal) Range: 5-15 CO2 24.0 mmol/L (Normal) Range: 21.0-32.0 CL 111 mmol/L (Abnormal) Range: 98-107 K 3.8 mmol/L (Normal) Range: 3.5-5.1 NA 142 mmol/L (Normal) Range: 136-145 CA 8.6 mg/dL (Normal) Range: 8.5-10.1 BUN/CRE 12.9 {RATIO} (Normal) Range: 10-20 EST GFR - AA 64 mL/min (Normal) Comments: GFR Calc EST GFR 53 mL/min (Abnormal) Comments: Non- GFR Calc CREAT,SERUM 1.16 mg/dL (Abnormal) Range: 0.55-1.02 Comments: The validity of the calculated GFR AND GFRAA in patients over70 years has not been determined. Clinical correlation isessential. BUN 15 mg/dL (Normal) Range: 7-18 GLU 135 mg/dL (Abnormal) Range: 70-110 Comments: Fasting Glucose result greater than or equal to 126 mg/dLsuggests DIABETES MELLITUS per A.D.A. criteria. 66-Bzq-777993:54 Microalb:Creat Ratio,Random UR Comments: [place] [address] [place], [address] MALB:CREAT 3622.4 {mg/g_CRE} (Abnormal) MICROALBUMIN,UR 1880.0 mg/L (Normal) UR CREAT 51.90 mg/dL (Normal) 55-Lht-103092:30 CDIFF (Molecular) Comments: [place] [address] [place], [place], [address] CDIFF See Note (Normal) Comments: Cdiff-MolecularNormal Reference Range = Negative C. Diff DNA Negative- No toxigenic C. Diff DNA DetectedNAAT METHOD Testing was performed using nucleic acid amplification 0-Nhl-716813:47 Bedside Glucose Comments: [facility] LaboratoryPoint of [address] [place], [place] [address] BEDSIDE GLU 124 mg/dL (Abnormal) Range: 70-110 Comments: MANAGEMENT OF PATIENT CARE PER NURSING PROTOCOL 0-Ysy-008806:39 Partial Thromboplast Time Comments: [facility] [address] [place], [place], [id number] PTT 25.9 s (Normal) Range: 24.1-36.2 :39 Prothrombin Time w/INR Comments: [facility] [address] [place], [place], [address] INR 1.1 (Normal) PROTIME 14.2 s (Normal) Range: 11.7-14.9 :23 Basic Metabolic Profile (BMP) Comments: [facility] [address] [place], [place], [address] GAP 8 (Normal) Range: 5-15 CO2 23.0 mmol/L (Normal) Range: 21.0-32.0 CL 106 mmol/L (Normal) Range: 98-107 K 3.5 mmol/L (Normal) Range: 3.5-5.1 NA 137 mmol/L (Normal) Range: 136-145 CA 9.0 mg/dL (Normal) Range: 8.5-10.1 BUN/CRE 14.5 {RATIO} (Normal) Range: 10-20 Estimated CRCL 48.43 ml/min (Normal) EST GFR - AA 60 mL/min (Normal) Comments: GFR Calc EST GFR 49 mL/min (Abnormal) Comments: Non- GFR Calc CREAT,SERUM 1.24 mg/dL (Abnormal) Range: 0.55-1.02 Comments: The validity of the calculated GFR AND GFRAA in patients over70 years has not been determined. Clinical correlation isessential. BUN 18 mg/dL (Normal) Range: 7-18 GLU 143 mg/dL (Abnormal) Range: 70-110 Comments: Fasting Glucose result greater than or equal to 126 mg/dLsuggests DIABETES MELLITUS per A.D.A. criteria. :23 Lactic Acid Comments: [facility] [address] [place], [address] LACTIC ACID 1.4 mmol/L (Normal) Range: 0.4-2.0 : KIDNEY BIOPSY See Note (Normal) Comments: [facility] [address] [place], [address] 20 Comments: Patient: JANIS ZAPATA : 1970 (46/F) Acct Num: [id number] Phys: Vibha Larson M.D. 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 The findings of a n isolated segmental glomerulitis could be compatible with an usual IgA nephropathy, but raises the issue of HS purpura or SLE (although the immunofluorescence would be atypical, C3 is not predominant a nd there is no C1q). Clinical and serologic correlation is recommended. GROSS DESCRIPTION The specimen is [facility]. [facility] and consists of three cores of tanrenal tissue 1.6, 1.5 and 1 cm long. Cores are divided for histology, immunofluorescence and electron microscopy. HEADER OPERATION: CT-guided kidn ey biopsy - left side PRE-OP DIAGNOSIS: Proteinuria TISSUE SUBMITTED: 18 g core x4 kidney - left MICROSCOPIC DESCRIPTION Sections are examined with H AND E, PAS, Olivas and trichrome stains . There are eight glomeruli present. One glomerulus is totally sclerotic, one glomerulus shows focal segmental glomerulosclerosis and one glomerulus show segmental glomerulitis without an associated c rescent. Other glomeruli show evidence of amesangioproliferative process. There are small foci of tubular atrophy. There is modest patchy interstitial fibrosis and scattered interstitial lymphocytes. There is mild arteriosclerosis. No arteritis is observed. IMMUNOFLUORESCENCE: There are six glomeruli present. One glomerulus is sclerotic. There is strong granular staining of mesangial areas for deposition of IgA; there is lesser granular IgG and C3 staining in the same loci. There isno staining to indicate deposition of IgM or C1q. There are albumin-containing resorption droplets in tubu les. There is no increase in glomerular fibrin deposition. ELECTRON MICROSCOPY: Two glomeruli are present. One glomerulus show segmentalloop collapse and sclerosis. Mesangial areas are expanded w ith matrix and cellsand contain numerous discrete electron dense deposits. Preserved glomerular capillary loops show usual basement membranes, mild to moderate epithelial cell foot process effacement a nd no significant electron dense deposits. Tubular basement membranes show no deposits. 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 Signed Magen [facility] 09/23/16 <signature on file> [id number] D-Dimer Quantitative (DVT/PE) Comments: [facility] [id number] [place], [address] D-DIMER QUANT 0.35 {FEU/ug/m} (Normal) Range: 0.27-0.49 Comments: NORMAL D-Dimer level (<0.50) indicates no DVT or PE. [id number] Basic Metabolic Profile (BMP) Comments: 'TROP' Serial specimen #1, #2, #3, or #4: [facility] [id number] [place], [place], [id number] GAP 11 (Normal) Range: 5-15 CO2 26.0 mmol/L (Normal) Range: 21.0-32.0 CL 106 mmol/L (Normal) Range: 98-107 K 3.5 mmol/L (Normal) Range: 3.5-5.1 NA 143 mmol/L (Normal) Range: 136-145 CA 8.6 mg/dL (Normal) Range: 8.5-10.1 BUN/CRE 21.1 {RATIO} (Abnormal) Range: 10-20 Estimated CRCL 74.14 ml/min (Normal) EST GFR - AA 98 mL/min (Normal) Comments: GFR Calc EST GFR 81 mL/min (Normal) Comments: Non- GFR Calc CREAT,SERUM 0.81 mg/dL (Normal) Range: 0.55-1.02 Comments: The validity of the calculated GFR AND GFRAA in patients over70 years has not been determined. Clinical correlation isessential. BUN 17 mg/dL (Normal) Range: 7-18 GLU 128 mg/dL (Abnormal) Range: 70-110 Comments: Fasting Glucose result greater than or equal to 126 mg/dLsuggests DIABETES MELLITUS per A.D.A. criteria. 39-Wqh-132854:33 CBC W/Diff, Automated Comments: [facility] [address] [place], [place], [id number] Absolute Lymph 2.32 {X10_3/ul} (Normal) Range: 0.83-4.51 Absolute Neut 6.9 {X10_3/uL} (Normal) Range: 2.0-7.7 IM GRAN % 0.200 % (Normal) Range: 0.0-0.9 Comments: IG% - Immature Granulocytes (promyelocytes, myelocytes andmetamyelocytes) > 1% indicates that a LEFT SHIFT is Present. BASO% 0.6 % (Normal) Range: 0-1 EO% 3.9 % (Normal) Range: 0-5 MONO% 6.3 % (Normal) Range: 0-10 LY% 22.5 % (Normal) Range: 19-41 NEUT% 66.5 % (Normal) Range: 47-70 MPV 11.1 fL (Normal) Range: 6.2-12.0 PLT 236 K/mm3 (Normal) Range: 150-450 RDW SD 45.4 fL (Abnormal) Range: 35.1-43.9 RDW CV 14.6 % (Normal) Range: 11.6-14.6 MCHC 32.5 {g/gl} (Normal) Range: 32-36 MCH 28.1 pg (Normal) Range: 27.0-32.0 MCV 86.5 fL (Normal) Range: 81-99 HCT 40.9 % (Normal) Range: 37-47 HGB 13.3 g/dL (Normal) Range: 12.0-15.0 RBC 4.73 {M/mm3} (Normal) Range: 4.2-5.4 WBC 10.3 K/mm3 (Normal) Range: 4.4-11.0 :33 Troponin-I Comments: 'TROP' Serial specimen #1, #2, #3, or #4: 1[facility] [address] [place], [address] TROPONIN-I < 0.02 ng/mL (Normal) Comments: TROPONIN-I EXPECTED VALUES <0.05 NEGATIVE 0.06 - 0.59 AT RISK OF [place] > OR = 0.60 SUGGEST [place] 78-Mol-61972:00 Creatinine, Urine (random) Comments: [facility] [address] [place], [address] UR CREAT 91.10 mg/dL (Normal) 05-Ppr-95366:00 Microalbumin,Random Urine Comments: [facility] [address] [place], [address] MICROALBUMIN,UR 5320.0 mg/L (Normal) 80-Bak-50084:00 Protein, Urine (Random) Comments: [facility] [address] [place], [address] PROTEIN,UR.RAN. 689.0 mg/dL (Abnormal) 25-Kaq-36390:00 Urinalysis, Routine (Dipstick) Comments: How was Urine Obtained? CLEAN [facility] [address] [place], [address] LEUK ESTERASE 25 /ul (Abnormal) OCCULT BLOOD-UR 150 /ul (Abnormal) NITRITE UR Negative (Normal) UROBILI Normal mg/dL (Normal) PROT DIPSTX 500 mg/dL (Abnormal) pH UR 8.0 (Normal) Range: 5.0 - 8.0 SP.GR. DIPSTX 1.015 (Normal) Range: 1.002-1.030 KETONE UR Negative mg/dL (Normal) BILIRUBIN URINE Negative mg/dL (Normal) GLUCOSE, UR Normal mg/dL (Normal) CLARITY Clear (Normal) COLOR Yellow (Normal) 03-Lkh-828607:08 24 HR UR Creatinine Clearance Comments: [facility] [address] [place], [address] CREAT CLEARANCE 94 ml/min (Abnormal) Range: 100-200 URINE CREAT 113.0 mg/dL (Normal) EST GFR - AA 84 mL/min (Normal) Comments: GFR Calc EST GFR 69 mL/min (Normal) Comments: Non- GFR Calc SERUM CREAT 0.9 mg/dL (Normal) Range: 0.6-1.0 UR TOTAL VOLUME 1100 mL (Normal) UR COLLECT TIME 24.0 {HOURS} (Normal) 12-Umv-372994:48 AFP, Tumor Marker Comments: Is Patient Fasting? NIs Patient ? [facility] (refer to report for specific site)refer to report for address and phone number AFP TUMOR 2253 2.8 ng/mL (Normal) Range: 0.0-8.3 Comments: Jai ECLIA methodology 72-Aez-617680:48 ANCA Comments: Is Patient Fasting? NIs Patient ? [facility] (refer to report for specific site)refer to report for address and phone number Atypical pANCA <1:20 {titer} (Normal) Comments: The atypical pANCA pattern has been observed in asignificant percentage of patients with ulcerative colitis,primary sclerosing cholangitis and autoimmune hepatitis. PERINUCLEAR Ab <1:20 {titer} (Normal) Comments: The presence of positive fluorescence exhibiting P-ANCA orC-ANCA patterns alone is not specific for the diagnosis ofWegener's Granulomatosis (WG) or microscopic polyangiitis.Decisions about treatment sh ould not be based solely onANCA IFA results. The International ANCA Group Consensusrecommends follow up testing of positive sera with both VA-3 and MPO- ANCA enzyme immunoassays. As many as 5% serumsamp les are positive only by EIA. Ref. AM J Clin Uxqhbp7182;111:507-513. CYTOPLASMIC Ab <1:20 {titer} (Normal) 70-Vjo-757063:48 Anti-dsDNA Ab Comments: [facility] (refer to report for specific site)refer to report for address and phone number dsDNA AB <1 {IU/mL} (Normal) Range: 0-9 Comments: Negative <5 Equivocal 5 - 9 Positive >9Performed at: [facility] [address] [id number] D irector: Jonathan Khan PhD, Phone: [phone] 80-Iqu-784897:48 CBC W/Diff, Automated Comments: [facility] [address] [place], [address] Absolute Lymph 2.85 {X10_3/ul} (Normal) Range: 0.83-4.51 Absolute Neut 6.4 {X10_3/uL} (Normal) Range: 2.0-7.7 IM GRAN % 0.200 % (Normal) Range: 0.0-0.9 Comments: IG% - Immature Granulocytes (promyelocytes, myelocytes andmetamyelocytes) > 1% indicates that a LEFT SHIFT is Present. BASO% 0.6 % (Normal) Range: 0-1 EO% 3.2 % (Normal) Range: 0-5 MONO% 5.6 % (Normal) Range: 0-10 LY% 27.7 % (Normal) Range: 19-41 NEUT% 62.7 % (Normal) Range: 47-70 MPV 11.3 fL (Normal) Range: 6.2-12.0 PLT 265 K/mm3 (Normal) Range: 150-450 RDW SD 46.5 fL (Abnormal) Range: 35.1-43.9 RDW CV 14.5 % (Normal) Range: 11.6-14.6 MCHC 31.3 {g/gl} (Abnormal) Range: 32-36 MCH 27.5 pg (Normal) Range: 27.0-32.0 MCV 87.8 fL (Normal) Range: 81-99 HCT 41.9 % (Normal) Range: 37-47 HGB 13.1 g/dL (Normal) Range: 12.0-15.0 RBC 4.77 {M/mm3} (Normal) Range: 4.2-5.4 WBC 10.3 K/mm3 (Normal) Range: 4.4-11.0 41-Jea-841942:48 Complement C3 Comments: Is Patient Fasting? NIs Patient ? [facility] (refer to report for specific site)refer to report for address and phone number COMP C3 205 mg/dL (Abnormal) Range: 82-167 Comments: Performed at: [address] [id number] Director: Jonathan Khan PhD, Phone: [phone] 31-Cxm-991966:48 Complement C4 Comments: Is Patient Fasting? NIs Patient ? [facility] (refer to report for specific site)refer to report for address and phone number COMP C4 28 mg/dL (Normal) Range: 14-44 01-Cfw-343417:48 SHAYLEE + Protein Elect, Serum Comments: Is Patient Fasting? NIs Patient ? [facility] (refer to report for specific site)refer to report for address and phone number NOTE: Comment (Normal) Comments: Protein electrophoresis scan will follow via computer,mail, or nursery school teacher delivery. SHAYLEE RESULT,S Comment (Normal) Comments: No monoclonality detected. A/G RATIO 0.9 (Normal) Range: 0.7-1.7 GLOBULIN, TOTAL 3.2 g/dL (Normal) Range: 2.2-3.9 M-SPIKE g/dL (Normal) Comments: Not Observed GAMMA GLOBULIN 0.6 g/dL (Normal) Range: 0.4-1.8 BETA GLOBULIN 1.1 g/dL (Normal) Range: 0.7-1.3 VLJRH-6-AYCU 1.2 g/dL (Abnormal) Range: 0.4-1.0 EJXGZ-0-FBFO 0.3 g/dL (Normal) Range: 0.0-0.4 ALBUMIN 2.6 g/dL (Abnormal) Range: 2.9-4.4 IMMUNOGL M 77 mg/dL (Normal) Range: 26-217 IMMUNO A 213 mg/dL (Normal) Range: 87-352 IMMUNO G 558 mg/dL (Abnormal) Range: 700-1600 PROTEIN,TOTAL 5.8 g/dL (Abnormal) Range: 6.0-8.5 :48 Partial Thromboplast Time Comments: [facility] [address] [place], [place], [id number] PTT 26.9 s (Normal) Range: 24.1-36.2 04-Gsw-817887:48 Prothrombin Time w/INR Comments: [facility] [address] [place], [place], [id number] INR 1.0 (Normal) PROTIME 12.6 s (Normal) Range: 11.7-14.9 72-Sxa-339258:27 HgA1C , Office (01104) HgA1C , Office 6.1 % (Normal) Range: 4.6 - 7.1 62-Hxr-343449:27 Blood Glucose , Office (64692) Blood Glucose , Office 104 (Normal) 0-Lvt-829201:10 Microscopic Examination Comments: PATIENT WAS FASTINGPERFORMED BY: [employer] [facility] [id number] Bacteria Few (Normal) Mucus Threads Present (Normal) Cast Type Hyaline casts (Normal) Casts Present {/lpf} (Abnormal) Epithelial Cells (non renal) 0-10 {/hpf} (Normal) Range: 0 - 10 RBC >30 {/hpf} (Abnormal) Range: 0 - 2 WBC 6-10 {/hpf} (Abnormal) Range: 0 - 5 4-Yvo-141847:10 URINALYSIS, W/ MICRO (10637) Comments: PATIENT WAS FASTINGPERFORMED BY: [employer] [facility] [id number] Microscopic Examination See below: (Normal) Comments: Microscopic was indicated and was performed. Nitrite, Urine Negative (Normal) Urobilinogen,Semi-Qn 0.2 mg/dL (Normal) Range: 0.2-1.0 Bilirubin Negative (Normal) Occult Blood 2+ (Abnormal) Ketones Negative (Normal) Glucose Negative (Normal) Protein 4+ (Abnormal) WBC Esterase Negative (Normal) Appearance Clear (Normal) Urine-Color Yellow (Normal) pH 7.0 (Normal) Range: 5.0-7.5 Specific [place] 1.026 (Normal) Range: 1.005-1.030 1-Wjy-392771:10 MICROALBUMIN: CREATININE RATIO Comments: PATIENT WAS FASTINGPERFORMED BY: [employer] [facility] [id number] (16575) AND (51700) Microalb/Creat Ratio 4548.7 {mg/g_creat} (Abnormal) Range: 0.0-30.0 Microalbumin, Urine 5463.0 ug/mL (Normal) Comments: Results confirmed ondilution. Creatinine, Urine 120.1 mg/dL (Normal) 3-Vnv-935449:10 METABOLIC PANEL, COMPREHENSIVE Comments: PATIENT WAS FASTINGPERFORMED BY: [employer] Wvnwtg2246 [facility] [id number] (89445) ALT (SGPT) 42 [iU]/L (Abnormal) Range: 0-32 AST (SGOT) 32 [iU]/L (Normal) Range: 0-40 Alkaline Phosphatase, S 74 [iU]/L (Normal) Range: 39-117 Bilirubin, Total <0.2 mg/dL (Normal) Range: 0.0-1.2 A/G Ratio 1.2 (Normal) Range: 1.2-2.2 Globulin, Total 2.7 g/dL (Normal) Range: 1.5-4.5 Albumin, Serum 3.2 g/dL (Abnormal) Range: 3.5-5.5 Protein, Total, Serum 5.9 g/dL (Abnormal) Range: 6.0-8.5 Calcium, Serum 8.9 mg/dL (Normal) Range: 8.7-10.2 Carbon Dioxide, Total 19 mmol/L (Normal) Range: 18-29 Chloride, Serum 101 mmol/L (Normal) Range: 96-106 Potassium, Serum 4.3 mmol/L (Normal) Range: 3.5-5.2 Sodium, Serum 139 mmol/L (Normal) Range: 134-144 BUN/Creatinine Ratio 31 (Abnormal) Range: 9-23 eGFR If Africn Am 106 mL/min/1.73 (Normal) eGFR If NonAfricn Am 92 mL/min/1.73 (Normal) Creatinine, Serum 0.77 mg/dL (Normal) Range: 0.57-1.00 BUN 24 mg/dL (Normal) Range: 6-24 Glucose, Serum 94 mg/dL (Normal) Range: 65-99 0-Frx-345217:10 CBC W/AUTO DIFF WBC (43350) Comments: PATIENT WAS FASTINGPERFORMED BY: [facility]tszct[facility]66 [facility] [id number] Immature Grans (Abs) 0.0 {x10E3/uL} (Normal) Range: 0.0-0.1 Immature Granulocytes 0 % (Normal) Baso (Absolute) 0.1 {x10E3/uL} (Normal) Range: 0.0-0.2 Eos (Absolute) 0.4 {x10E3/uL} (Normal) Range: 0.0-0.4 Monocytes(Absolute) 0.6 {x10E3/uL} (Normal) Range: 0.1-0.9 Lymphs (Absolute) 3.9 {x10E3/uL} (Abnormal) Range: 0.7-3.1 Neutrophils (Absolute) 7.1 {x10E3/uL} (Abnormal) Range: 1.4-7.0 Basos 1 % (Normal) Eos 4 % (Normal) Monocytes 5 % (Normal) Lymphs 32 % (Normal) Neutrophils 58 % (Normal) Platelets 284 {x10E3/uL} (Normal) Range: 150-379 RDW 14.7 % (Normal) Range: 12.3-15.4 MCHC 32.1 g/dL (Normal) Range: 31.5-35.7 MCH 27.9 pg (Normal) Range: 26.6-33.0 MCV 87 fL (Normal) Range: 79-97 Hematocrit 43.3 % (Normal) Range: 34.0-46.6 Hemoglobin 13.9 g/dL (Normal) Range: 11.1-15.9 RBC 4.99 {x10E6/uL} (Normal) Range: 3.77-5.28 WBC 12.2 {x10E3/uL} (Abnormal) Range: 3.4-10.8 0-Evk-576110:10 LIPID PANEL (75589) Comments: PATIENT WAS FASTINGPERFORMED BY: [facility] [id number] LDL/HDL Ratio 3.1 {ratio_units} (Normal) Range: 0.0-3.2 Comments: LDL/HDL Ratio Men Women 1/2 Avg.Risk 1.0 1.5 Av g.Risk 3.6 3.2 2X Avg.Risk 6.2 5.0 3X Avg.Risk 8.0 6.1 LDL Cholesterol Calc 131 mg/dL (Abnormal) Range: 0-99 VLDL Cholesterol Juliocesar 66 mg/dL (Abnormal) Range: 5-40 HDL Cholesterol 42 mg/dL (Normal) Triglycerides 331 mg/dL (Abnormal) Range: 0-149 Cholesterol, Total 239 mg/dL (Abnormal) Range: 100-199 :10 HEPATIC FUNCTION PANEL Comments: PATIENT WAS FASTINGPERFORMED BY: [employer] [facility])6370 [facility] [id number] (43015) Bilirubin, Direct 0.07 mg/dL (Normal) Range: 0.00-0.40 0-Vgr-855527:58 URINE BEULAH CULTURE-IDENTIFICATN Comments: PATIENT NOT FASTINGPERFORMED BY: [facility] Mcihrn6523 [facility] [id number] Information: SRC: ([id number]) Antimicrobial MIHEAD (Normal) Comments: S = Susceptible; I = Intermediate; R = Resistant P = Positive; N = Negative MICS are expressed in micrograms per mL Antibiotic RSLT#1 RSLT#2 RS Susceptibility LT#3 RSLT#4Amoxicillin/Clavulanic Acid SAmpicillin SCefepime SCeftriaxone SCefuroxime SCephalothin SCiprofloxacin SErtapenem SGentamicin SImipenem SLevofloxacin SNitrofurantoin SPipera cillin STetracycline STobramycin STrimethoprim/Sulfa S Result 1 Escherichia coli Comments: Greater than 100,000 colony forming units per mL (Abnormal) Urine Final report Culture,Comprehensive (Abnormal) 1-Mwl-977270:26 Rapid Flu (44799 x 2) Comments: neg Influenza A Ag negative (Normal) 4-Zin-151146:23 Urinalysis, Office (28215) UA - LEUKOCYTE ESTERASE Trace (Normal) UA - NITRITE Negative (Normal) URINE UROBILINGN GENNA TIMED Normal mg/dL (Normal) UA - PROTEIN 300 mg/dL (Normal) UA - PH 6 (Abnormal) UA - BLOOD Hemolyzed Large (Normal) UA - SPECIFIC GRAVITY 1.015 (Normal) UA - KETONES Negative mg/dL (Normal) UA - BILIRUBIN Negative (Normal) UA - GLUCOSE Negative (Normal) 2-Pvc-121512:02 Bedside Glucose Comments: [facility]Point [facility] [address] [place] [address] BEDSIDE GLU 105 mg/dL (Normal) Range: 70-110 Comments: No Action RequiredMANAGEMENT OF PATIENT CARE PER NURSING PROTOCOL 30-Imh-539397:49 TSH (71582) Comments: PATIENT NOT FASTINGPERFORMED BY: [facility] Ghmzok2788 [facility] [id number] TSH 2.680 {uIU/mL} (Normal) Range: 0.450-4.500 93-Kjs-930660:49 T4, FREE (THYROXINE) (76189) Comments: PATIENT NOT FASTINGPERFORMED BY: [email or web address] [facility] Pyrpqh1824 [facility]anaAudingoCarePart[facility] [id number] T4,Free(Direct) 0.86 ng/dL (Normal) Range: 0.82-1.77 :49 T3, FREE (TRIDOTHYRONINE) (84525) Comments: PATIENT NOT FASTINGPERFORMED BY: [email or web address] [facility] Oemfbi8855 Magana WikiRealtyCarePartners Rehabilitation Hospital [id number] Triiodothyronine,Free,Serum 3.0 pg/mL (Normal) Range: 2.0-4.4 :52 URINE BEULAH CULTURE-IDENTIFICATN Comments: PATIENT NOT FASTINGPERFORMED BY: [facility] Qnuzfy6786 [facility] [id number] Information: SRC: ([id number]) Result 1 ECV (Abnormal) Comments: Escherichia coli, identified by an automated biochemical system.Greater than 100,000 colony forming units per mL S = Susceptible; I = Intermediate; R = Resistant P = Positiv e; N = Negative MICS are expressed in micrograms per mL Antibiotic RSLT#1 RSLT#2 RSLT#3 RSLT#4Amoxicillin/Clavulanic Acid SAmpicillin RCefepi me SCeftriaxone SCefuroxime SCephalothin ICiprofloxacin RErtapenem SGentamicin SImipenem SLevofloxacin RNitrofurantoin SPiperacillin RTetracycline STobramycin STrimethoprim/Sulfa S Urine Final report Culture,Comprehensi (Abnormal) ve :26 Urinalysis, Office (09109) UA - LEUKOCYTE ESTERASE Negative (Normal) UA - NITRITE Positive (Normal) URINE UROBILINGN GENNA TIMED Normal mg/dL (Normal) UA - PROTEIN 300 mg/dL (Normal) UA - PH 7 (Normal) UA - BLOOD Hemolyzed Large (Normal) UA - SPECIFIC GRAVITY 1.020 (Normal) UA - KETONES Negative mg/dL (Normal) UA - BILIRUBIN Negative (Normal) UA - GLUCOSE Negative (Normal) 50-Xag-704434:13 TSH (THYROID STIMULATING Comments: PATIENT WAS FASTINGPERFORMED BY: [facility]6370 [facility] [id number] HORMONE) (19068) TSH 5.150 {uIU/mL} (Abnormal) Range: 0.450-4.500 :13 CALCIFEDIOL (73595) Comments: PATIENT WAS FASTINGPERFORMED BY: [facility]6370 [facility] [id number] Vitamin D, 25-Hydroxy 14.9 ng/mL (Abnormal) Range: 30.0-100.0 Comments: Vitamin D deficiency has been defined by the [place] of[employer]icine and an Endocrine Society practice guideline as alevel of serum 25-OH vitamin D less than 20 ng/mL (1,2).The Endocrine Society went on to further define vitamin Dinsufficiency as a level between 21 and 29 ng/mL (2).1. IOM ([place] of [employer]). 2010. Dietary reference intakes for calcium and D. [place]: The National Academies Press.2. Miles MF, Tri MITCHELL, Juan Francisco SHEETS, et al. Evaluation, treatment, and prevention of vitamin D deficiency: an Endocrine Society clinical practice guideline. JCEM. 2010; 96(7):1911-30. 54-Qnn-069676:13 METABOLIC PANEL, COMPREHENSIVE Comments: PATIENT WAS FASTINGPERFORMED BY: [facility]6370 [facility] [id number] (59402) ALT (SGPT) 30 [iU]/L (Normal) Range: 0-32 AST (SGOT) 31 [iU]/L (Normal) Range: 0-40 Alkaline Phosphatase, S 76 [iU]/L (Normal) Range: 39-117 Bilirubin, Total <0.2 mg/dL (Normal) Range: 0.0-1.2 A/G Ratio 1.2 (Normal) Range: 1.1-2.5 Globulin, Total 2.7 g/dL (Normal) Range: 1.5-4.5 Albumin, Serum 3.2 g/dL (Abnormal) Range: 3.5-5.5 Protein, Total, Serum 5.9 g/dL (Abnormal) Range: 6.0-8.5 Calcium, Serum 8.8 mg/dL (Normal) Range: 8.7-10.2 Carbon Dioxide, Total 21 mmol/L (Normal) Range: 18-29 Chloride, Serum 103 mmol/L (Normal) Range: 96-106 Potassium, Serum 4.2 mmol/L (Normal) Range: 3.5-5.2 Sodium, Serum 142 mmol/L (Normal) Range: 134-144 BUN/Creatinine Ratio 25 (Abnormal) Range: 9-23 eGFR If Africn Am 114 mL/min/1.73 (Normal) eGFR If NonAfricn Am 99 mL/min/1.73 (Normal) Creatinine, Serum 0.73 mg/dL (Normal) Range: 0.57-1.00 BUN 18 mg/dL (Normal) Range: 6-24 Glucose, Serum 107 mg/dL (Abnormal) Range: 65-99 40-Wot-733144:13 LIPID PANEL (10023) Comments: PATIENT WAS FASTINGPERFORMED BY: [email or web address] [facility] Uiwnpm0076 [facility]UNC [facility] [id number] LDL/HDL Ratio 3.2 {ratio_units} (Normal) Range: 0.0-3.2 Comments: LDL/HDL Ratio Men Women 1/2 Avg.Risk 1.0 1.5 Av g.Risk 3.6 3.2 2X Avg.Risk 6.2 5.0 3X Avg.Risk 8.0 6.1 LDL Cholesterol Calc 158 mg/dL (Abnormal) Range: 0-99 VLDL Cholesterol Juliocesar 65 mg/dL (Abnormal) Range: 5-40 HDL Cholesterol 50 mg/dL (Normal) Triglycerides 327 mg/dL (Abnormal) Range: 0-149 Cholesterol, Total 273 mg/dL (Abnormal) Range: 100-199 90-Vof-449524:13 CBC with auto diff (46967) Comments: PATIENT WAS FASTINGPERFORMED BY: [email or web address] [facility] Pblvqx4250 [facility] [id number] Immature Grans (Abs) 0.0 {x10E3/uL} (Normal) Range: 0.0-0.1 Immature Granulocytes 0 % (Normal) Baso (Absolute) 0.1 {x10E3/uL} (Normal) Range: 0.0-0.2 Eos (Absolute) 0.3 {x10E3/uL} (Normal) Range: 0.0-0.4 Monocytes(Absolute) 0.4 {x10E3/uL} (Normal) Range: 0.1-0.9 Lymphs (Absolute) 2.9 {x10E3/uL} (Normal) Range: 0.7-3.1 Neutrophils (Absolute) 5.6 {x10E3/uL} (Normal) Range: 1.4-7.0 Basos 1 % (Normal) Eos 4 % (Normal) Monocytes 4 % (Normal) Lymphs 31 % (Normal) Neutrophils 60 % (Normal) Platelets 301 {x10E3/uL} (Normal) Range: 150-379 RDW 15.6 % (Abnormal) Range: 12.3-15.4 MCHC 32.8 g/dL (Normal) Range: 31.5-35.7 MCH 27.2 pg (Normal) Range: 26.6-33.0 MCV 83 fL (Normal) Range: 79-97 Hematocrit 44.2 % (Normal) Range: 34.0-46.6 Hemoglobin 14.5 g/dL (Normal) Range: 11.1-15.9 RBC 5.33 {x10E6/uL} (Abnormal) Range: 3.77-5.28 WBC 9.2 {x10E3/uL} (Normal) Range: 3.4-10.8 14-Dug-225763:13 HGB A1C (99493) Comments: PATIENT WAS FASTINGPERFORMED BY: [facility]CoChrist HospitalRfmeyj0541 [facility] [id number] Hemoglobin A1c 6.4 % (Abnormal) Range: 4.8-5.6 Comments: . Pre-diabetes: 5.7 - 6.4 Diabetes: >6.4 Glycemic control for adults with diabetes: <7.0 :10 Urinalysis, Office (35421) UA - LEUKOCYTE ESTERASE Negative (Normal) UA - NITRITE Negative (Normal) URINE UROBILINGN GENNA TIMED Normal mg/dL (Normal) UA - PROTEIN 300 mg/dL (Normal) UA - PH 7 (Normal) UA - BLOOD Hemolyzed Large (Normal) UA - SPECIFIC GRAVITY 1.025 (Normal) UA - KETONES Negative mg/dL (Normal) UA - BILIRUBIN Negative (Normal) UA - GLUCOSE Negative (Normal) 33-Ooe-066322:28 URINE BEULAH CULTURE-IDENTIFICATN Comments: PATIENT NOT FASTINGPERFORMED BY: [facility] Rpzuig8464 [facility] [id number] Information: SRC:UC ([id number]) Result 1 ECV (Abnormal) Comments: Escherichia coli, identified by an automated biochemical system.3,000 Colonies/mLMixed urogenital flora3,000 Colonies/mL S = Susceptible; I = Intermediate; R = Resistant P = Positive; N = Negative MICS are expressed in micrograms per mL Antibiotic RSLT#1 RSLT#2 RSLT#3 RSLT#4Amoxicillin/Clavulanic Acid SAmpicillin RCefepime SCeftriaxone SCefuroxime SCephalothin ICiprofloxacin RErtapenem SGentamic in SImipenem SLevofloxacin RNitrofurantoin SPiperacillin RTetracycline STobramycin STrimethoprim/Sulfa S Urine Final report Culture,Comprehensi (Abnormal) ve 44-Hnw-151573:37 Urinalysis, Office (88756) UA - LEUKOCYTE ESTERASE Trace (Normal) UA - NITRITE Negative (Normal) URINE UROBILINGN GENNA TIMED Normal mg/dL (Normal) UA - PROTEIN 300 mg/dL (Normal) UA - PH 8.5 (Normal) UA - BLOOD Hemolyzed Large (Normal) UA - SPECIFIC GRAVITY 1.020 (Normal) UA - KETONES Negative mg/dL (Normal) UA - BILIRUBIN Negative (Normal) UA - GLUCOSE Negative (Normal) 90-Kui-58721:52 Culture, Aerobic, Comments: PATIENT NOT FASTINGPERFORMED BY: [facility] Amvuur3772 [facility] [id number] Information: LEFT LEG SRC:FL Bacterial ID ([id number]) Antimicrobial MIHEAD (Normal) Comments: S = Susceptible; I = Intermediate; R = Resistant P = Positive; N = Negative MICS are expressed in micrograms per mL Antibiotic RSLT#1 RSLT#2 RS Susceptibility LT#3 RSLT#4Ciprofloxacin SClindamycin SErythromycin SGentamicin SLevofloxacin SLinezolid SMoxifloxacin SOxacillin SPenicillin RQuinupristin/Dalfopristin SRifampin STetracycline RTrimet hoprim/Sulfa SVancomycin S Result 1 Staphylococcus aureus Comments: Heavy growthBased on resistance to penicillin and susceptibility to oxacillinthis isolate would be susceptible to:* Penicillinase-stable penicillins; such as: Cloxacillin Dicloxacillin Nafcilli (Abnormal) n* Beta-lactam/beta-lactamase inhibitor combinations; such as: Amoxicillin-clavulanic acid Ampicillin-sulbactam* Antistaphylococcal cephems; such as: Cefaclor Cefuroxime* Antistaphylococcal carbapenems; such as: Imipenem Meropenem Aerobic Bacterial Final report (Abnormal) Culture :48 HGB A1C ([id number]) Comments: [facility]: [facility] [facility] [id number] Hemoglobin A1c 6.3 % (Abnormal) Range: 4.8-5.6 Comments: . Pre-diabetes: 5.7 - 6.4 Diabetes: >6.4 Glycemic control for adults with diabetes: <7.0 :46 TSH ([id number]) Comments: PATIENT NOT FASTINGPERFORMED BY: [facility] [facility] [id number] TSH 2.910 {uIU/mL} (Normal) Range: 0.450-4.500 :46 CBC WITH MANUAL DIFF ([id number]) Comments: PATIENT NOT FASTINGPERFORMED BY: [facility] [facility] [id number] Immature Grans (Abs) 0.0 {x10E3/uL} (Normal) Range: 0.0-0.1 Immature Granulocytes 0 % (Normal) Baso (Absolute) 0.1 {x10E3/uL} (Normal) Range: 0.0-0.2 Eos (Absolute) 0.4 {x10E3/uL} (Normal) Range: 0.0-0.4 Monocytes(Absolute) 0.5 {x10E3/uL} (Normal) Range: 0.1-0.9 Lymphs (Absolute) 3.2 {x10E3/uL} (Abnormal) Range: 0.7-3.1 Neutrophils (Absolute) 6.1 {x10E3/uL} (Normal) Range: 1.4-7.0 Basos 1 % (Normal) Eos 4 % (Normal) Monocytes 5 % (Normal) Lymphs 31 % (Normal) Neutrophils 59 % (Normal) Platelets 284 {x10E3/uL} (Normal) Range: 150-379 RDW 15.1 % (Normal) Range: 12.3-15.4 MCHC 32.0 g/dL (Normal) Range: 31.5-35.7 MCH 26.5 pg (Abnormal) Range: 26.6-33.0 MCV 83 fL (Normal) Range: 79-97 Hematocrit 41.0 % (Normal) Range: 34.0-46.6 Hemoglobin 13.1 g/dL (Normal) Range: 11.1-15.9 RBC 4.95 {x10E6/uL} (Normal) Range: 3.77-5.28 WBC 10.3 {x10E3/uL} (Normal) Range: 3.4-10.8 [id number] Metabolic Panel, Basic Comments: PATIENT NOT FASTINGPERFORMED BY: [facility] [facility] [id number] ([id number]) Calcium, Serum 8.6 mg/dL (Abnormal) Range: 8.7-10.2 Carbon Dioxide, Total 22 mmol/L (Normal) Range: 18-29 Chloride, Serum 102 mmol/L (Normal) Range: 97-106 Comments: Please note reference interval change Potassium, Serum 3.8 mmol/L (Normal) Range: 3.5-5.2 Comments: Please note reference interval change Sodium, Serum 144 mmol/L (Normal) Range: 136-144 Comments: Please note reference interval change BUN/Creatinine Ratio 21 (Normal) Range: 9-23 eGFR If Africn Am 114 mL/min/1.73 (Normal) eGFR If NonAfricn Am 99 mL/min/1.73 (Normal) Creatinine, Serum 0.73 mg/dL (Normal) Range: 0.57-1.00 BUN 15 mg/dL (Normal) Range: 6-24 Glucose, Serum 111 mg/dL (Abnormal) Range: 65-99 Plan of Care Name Dates Details Instructions Pustules determined by examination : Reviewed Lab Indication: Pustules determined by examination Cellulitis : Eprescribed prescriptions (G8553) Indication: Cellulitis Epigastric pain : Follow up - Make appt after diagnostic tests Indication: Epigastric pain Need for prophylactic vaccination and inoculation against influenza (Renamed from Need for immunization against influenza) : Eprescribed prescriptions (G8553) Indication: Need for prophylactic vaccination and inoculation against influenza (Renamed from Need for immunization against influenza) Hypertension : Follow up in 4 weeks Indication: Hypertension Hypertension : BP MONITORING - SELF Indication: Hypertension Diabetes typeII,controlled, renal comp : Follow up in 3 months Indication: Diabetes typeII,controlled, renal comp Pulmonary hypertension : Reviewed Hoisting Engine Operator Letter Indication: Pulmonary hypertension Glomerulonephritis, IgA : Reviewed Hoisting Engine Operator Letter Indication: Glomerulonephritis, IgA Hyperlipidemia, mild : Cholesterol mgmt Indication: Hyperlipidemia, mild Hypertension : Diet, Exercise, and Wt loss Indication: Hypertension Hypertension : HTN/CAD Red Flags Indication: Hypertension Diabetes typeII,controlled, renal comp : Diet, Exercise, and Wt loss Indication: Diabetes typeII,controlled, renal comp Diabetes typeII,controlled, renal comp : *Diabetes Education Indication: Diabetes typeII,controlled, renal comp Current smoker : Eprescribed prescriptions (G8553) Indication: Current smoker Hypertension : HTN/CAD Red Flags Indication: Hypertension Proteinuria, unspecified type : Reviewed Hoisting Engine Operator Letter Indication: Proteinuria, unspecified type Diabetes typeII,controlled, renal comp : Follow up in 3 months Indication: Diabetes typeII,controlled, renal comp Sinus tachycardia : Follow up in 2 weeks- hr bp ck adn lab results Indication: Sinus tachycardia Hypertension : Diet, Exercise, and Wt loss Indication: Hypertension Hypertension : HTN/CAD Red Flags Indication: Hypertension Diabetes typeII,controlled, renal comp : Diet, Exercise, and Wt loss Indication: Diabetes typeII,controlled, renal comp Diabetes typeII,controlled, renal comp : *Diabetes Education Indication: Diabetes typeII,controlled, renal comp Adult hypothyroidism : Continue Current Prescription(s) Indication: Adult hypothyroidism Adult hypothyroidism : Reviewed Lab Indication: Adult hypothyroidism Hyperlipidemia, mild : Cholesterol mgmt Indication: Hyperlipidemia, mild Hyperlipidemia, mild : *Cholesterol - Nonprescription Treatment Indication: Hyperlipidemia, mild Current smoker : Follow up if no improvement or if symptoms worsen Indication: Current smoker Current smoker : Eprescribed prescriptions (G8553) Indication: Current smoker Diabetes typeII,controlled, renal comp : Follow up in 3 months Indication: Diabetes typeII,controlled, renal comp Pulmonary hypertension, mild : Continue Current Prescription(s) Indication: Pulmonary hypertension, mild Glomerulonephritis, IgA : Reviewed Hoisting Engine Operator Letter Indication: Glomerulonephritis, IgA Hypertension : Continue Current Prescription(s) Indication: Hypertension Asthma : Continue Current Prescription(s) Indication: Asthma Hyperlipidemia, mild : Cholesterol mgmt Indication: Hyperlipidemia, mild Hypertension : Diet, Exercise, and Wt loss Indication: Hypertension Hypertension : HTN/CAD Red Flags Indication: Hypertension Fatty liver : Diet, Exercise, and Wt loss Indication: Fatty liver Adult hypothyroidism : Continue Current Prescription(s) Indication: Adult hypothyroidism Diabetes typeII,controlled, renal comp : Eprescribed prescriptions (G8553) Indication: Diabetes typeII,controlled, renal comp Controlled type 2 diabetes mellitus without complication : Follow up in 3 months Indication: Controlled type 2 diabetes mellitus without complication Hyperlipidemia, mild : Cholesterol mgmt Indication: Hyperlipidemia, mild Asthma : Continue Current Prescription(s) Indication: Asthma Hypertension : Diet, Exercise, and Wt loss Indication: Hypertension Hypertension : HTN/CAD Red Flags Indication: Hypertension Glomerulonephritis, IgA : Reviewed Hoisting Engine Operator Letter Indication: Glomerulonephritis, IgA Controlled type 2 diabetes mellitus without complication : *Diabetes Education Indication: Controlled type 2 diabetes mellitus without complication Fatty liver : Diet, Exercise, and Wt loss Indication: Fatty liver Abscess of buttock : Reviewed Hoisting Engine Operator Letter- Dr Eng Indication: Abscess of buttock Pulmonary hypertension, mild : Reviewed Diagnostic Tests Indication: Pulmonary hypertension, mild Glomerulonephritis, IgA : Reviewed Hoisting Engine Operator Letter Indication: Glomerulonephritis, IgA Hypertension : Continue Current Prescription(s) Indication: Hypertension Hypertension : HTN/CAD Red Flags Indication: Hypertension Chronic obstructive asthma with acute exacerbation (Renamed from Chronic obstructive asthma with exacerbation) : Reviewed Hoisting Engine Operator Letter Indication: Chronic obstructive asthma with acute exacerbation (Renamed from Chronic obstructive asthma with exacerbation) Chronic obstructive asthma with acute exacerbation (Renamed from Chronic obstructive asthma with exacerbation) : Reviewed Lab Indication: Chronic obstructive asthma with acute exacerbation (Renamed from Chronic obstructive asthma with exacerbation) Chronic obstructive asthma with acute exacerbation (Renamed from Chronic obstructive asthma with exacerbation) : Reviewed Diagnostic Tests Indication: Chronic obstructive asthma with acute exacerbation (Renamed from Chronic obstructive asthma with exacerbation) Chronic obstructive asthma with acute exacerbation (Renamed from Chronic obstructive asthma with exacerbation) : Continue Current Prescription(s) Indication: Chronic obstructive asthma with acute exacerbation (Renamed from Chronic obstructive asthma with exacerbation) Chronic obstructive asthma with acute exacerbation (Renamed from Chronic obstructive asthma with exacerbation) : Diet, Exercise, and Wt loss Indication: Chronic obstructive asthma with acute exacerbation (Renamed from Chronic obstructive asthma with exacerbation) Diabetes typeII,controlled, renal comp : Follow up in 3 months Indication: Diabetes typeII,controlled, renal comp Adult hypothyroidism : Continue Current Prescription(s) Indication: Adult hypothyroidism Hypertension : Continue Current Prescription(s) Indication: Hypertension Other proteinuria : *Avoid NSAIDS Indication: Other proteinuria Hyperlipidemia, mild : Cholesterol mgmt Indication: Hyperlipidemia, mild Diabetes typeII,controlled, renal comp : *Diabetes Education Indication: Diabetes typeII,controlled, renal comp Hyperlipidemia, mild : Cholesterol mgmt Indication: Hyperlipidemia, mild Diabetes typeII,controlled, renal comp : Eprescribed prescriptions (G8553) Indication: Diabetes typeII,controlled, renal comp Allergic rhinitis : Follow up if no improvement or if symptoms worsen Indication: Allergic rhinitis Controlled type 2 diabetes mellitus without complication : Follow up in 2 months Indication: Controlled type 2 diabetes mellitus without complication Hyperlipidemia, mild : Cholesterol mgmt Indication: Hyperlipidemia, mild Controlled type 2 diabetes mellitus without complication : Reviewed Lab Indication: Controlled type 2 diabetes mellitus without complication Hypertension : Reviewed Lab Indication: Hypertension Dysuria : Eprescribed prescriptions (G8553) Indication: Dysuria Dysuria : Bladder Infection (Cystitis): uti Indication: Dysuria Hypertension : Follow up in 2 weeks: - bp ck and wt ck Indication: Hypertension Controlled type 2 diabetes mellitus without complication : Follow up in 3 months Indication: Controlled type 2 diabetes mellitus without complication Hypertension : BP MONITORING - SELF Indication: Hypertension Mild intermittent asthma without complication : Continue Current Prescription(s) Indication: Mild intermittent asthma without complication Controlled type 2 diabetes mellitus without complication : Diet, Exercise, and Wt loss Indication: Controlled type 2 diabetes mellitus without complication Controlled type 2 diabetes mellitus without complication : *Diabetes Education Indication: Controlled type 2 diabetes mellitus without complication Hypertension : HTN/CAD Red Flags Indication: Hypertension Cellulitis of left lower extremity : Continue Current Prescription(s) Indication: Cellulitis of left lower extremity Cellulitis of left lower extremity : Eprescribed prescriptions (G8553) Indication: Cellulitis of left lower extremity Hematuria : Follow up in 1 week Indication: Hematuria Cellulitis of left lower extremity : Eprescribed prescriptions (G8553) Indication: Cellulitis of left lower extremity Hematuria : Eprescribed prescriptions (G8553) Indication: Hematuria Hematuria : Hematuria (Blood in Urine): bladder Indication: Hematuria Smoker : Eprescribed prescriptions (G8553) Indication: Smoker Edema extremities : Reviewed Lab Indication: Edema extremities Hypertension : BP MONITORING - SELF Indication: Hypertension Hypertension : Continue Current Prescription(s) Indication: Hypertension Edema extremities : Eprescribed prescriptions (G8553) Indication: Edema extremities Edema extremities : Reviewed Diagnostic Tests:- no evidence of dvt Indication: Edema extremities Planned Observations CALCIFEDIOL (54540)Indication: Vitamin D deficiency On: :49 Request T4, FREE (THYROXINE) (75566)Indication: Adult hypothyroidism On: :49 Request T3, FREE (TRIDOTHYRONINE) (43331)Indication: Adult hypothyroidism On: :49 Request TSH (48084)Indication: Adult hypothyroidism On: :48 Request URINALYSIS, W/ MICRO (07938)Indication: Diabetes typeII,controlled, renal comp On: :48 Request MICROALBUMIN: CREATININE RATIO (51074) AND (47618)Indication: Diabetes typeII,controlled, renal comp On: :48 Request LIPOPROTEIN, BLD, BY NMR (63953)Indication: Diabetes typeII,controlled, renal comp On: :48 Request METABOLIC PANEL, COMPREHENSIVE (73572)Indication: Diabetes typeII,controlled, renal comp On: :48 Request CBC W/AUTO DIFF WBC (84340)Indication: Diabetes typeII,controlled, renal comp On: :48 Request HGB A1C (46452)Indication: Diabetes typeII,controlled, renal comp On: :47 Request Comments: do in -january HGB A1C (53700)Indication: Diabetes typeII,controlled, renal comp On: :47 Request Comments: now METABOLIC PANEL, COMPREHENSIVE (22394)Indication: Itch of skin On: 05-Puz-568514:29 Request URINALYSIS, W/ MICRO (46167)Indication: Hypertension On: :39 Request MICROALBUMIN: CREATININE RATIO (33953) AND (33556)Indication: Hypertension On: :39 Request CALCIFEDIOL (86013)Indication: Vitamin D deficiency On: :26 Request URINALYSIS, W/ MICRO (50122)Indication: Hypertension On: :22 Request MICROALBUMIN: CREATININE RATIO (96989) AND (04291)Indication: Hypertension On: :22 Request METABOLIC PANEL, COMPREHENSIVE (72375)Indication: Hypertension On: : Request CBC W/AUTO DIFF WBC ([id number])Indication: Hypertension On: :22 Request LIPID PANEL ([id number])Indication: Hyperlipidemia, mild On: :21 Request TSH (12760)Indication: Adult hypothyroidism On: : Request OXEQM-[id number]-WALBR ([id number])Indication: Fatty liver On: :01 Request URINALYSIS (92086)Indication: Hematuria On: 55-Jzo-056269:56 Request MICROALBUMIN 24 HOUR OR RANDOM (45285)Indication: Other proteinuria On: :52 Request Comments: 24 hr for protein CREATININE CLEARANCE (04646)Indication: Other proteinuria On: :52 Request MICROALBUMIN: CREATININE RATIO (12407) AND ([id number])Indication: Controlled type 2 diabetes mellitus without complication On: 95-Jof-451273:28 Request Metabolic Panel, Basic (52630)Indication: Skin sore On: 86-Dar-461610:22 Request Metabolic Panel, Basic (20508)Indication: Edema extremities On: 72-Ubr-830362:19 Request Planned Procedures PROLONGED PHYSICIAN SERVICE, OFFICE On: 15-Apr-2018 Intent ([id number])By: Naomi Colunga DO, DO, Kathleen Aerosol Treatment (81689)By: Cristine On: 15-Apr-2018 Naomi Collazo DO, DO, Kathleen Comments: lil looser more a/e but still tight- diffuse insp and exp noise but less inspir after aerosluse resuce inahler q2hr while awke for 24 hr then q 4hr wa CXR PA & LAT (60714)By: Cristine HAY, On: 15-Apr-2018 Intent Naomi Bautista DO Spirometry (72762)By: Cristine HAY, On: 15-Apr-2018 Intent Naomi Bautista DO Comments: severe obstruction -- O2 at rest 94% dn with ambulation 96% Rocephin Injection, 2 Gram On: 06-Feb-2018 Intent ([id number])By: Leticia Bernard DO Comments: lot: [id number]: ite/route: RGM and LGM (1 G given in each hip)amt: 2GVIS signed when applicableFAM Lowe US GALLBLADDER ([id number])By: Cristine On: 29-Dec-2017 Intent Naomi HAY DO, Kathleen Comments: attention CBD size -- h/o stent in past MAMMOGRAM BREAST BILATERAL On: 11-Dec-2017 Intent SCREENING DIGITAL ([id number])By: Naomi Colunga DO, DO, Kathleen Flu Vaccine (Quadrivalent) 57492Jj: On: 10-Dec-2017 Intent Naomi Colunga DO, DO, Comments: Lot #[id number]/30/19Site-L dltd, IMDose prefilled syringegiven by:LINSEY Mcnulty reviewed and ABN signed Naomi X-RAY OF RIGHT HAND, TWO VIEWS On: 24-Sep-2017 Intent ([id number])By: Naomi Colunga DO Comments: send results to dr valles as well Naomi Colunga DO Radiology - Hand - LeftBy: Cristine On: 24-Sep-2017 Naomi Collazo DO, DO, Kathleen Comments: send results to dr valles as well THYROID ULTRASOUND ([id number])By: On: 25-Jun-2017 Intent Naomi Colunga DO, DO, Kathleen Spirometry ([id number])By: Cristine HAY, On: 25-Jun-2017 Intent Naomi Bautista DO Comments: normal ELECTROCARDIOGRAM, COMPLETE (ECG) On: 25-Jun-2017 Intent ([id number])By: Naomi Colunga DO Comments: nsr no acute chg Naomi Colunga DO IV Needle placement (07156)By: On: 17-Jun-2017 Intent Rosaura Upton CNP INFUSION, NORMAL SALINE SOLUTION , On: 17-Jun-2017 Intent 1000 CC (Special Coverage Instructions Apply. See MCM: 2049) ([id number])By: Rosaura Upton CNP Phenergan Injection, up to 50 mg On: 17-Jun-2017 Intent ([id number])By: Rosaura Upton CNP Comments: 50mg given IM in left glut MeC Lot # [id number] exp Flu Vaccine (Quadrivalent) 54063Tc: On: 18-Dec-2016 Intent Naomi Colunga DO, DO, Comments: Lot:[id number]:09/22/17Amt:0.5mlRoute:IMSite: L DltdGiven By: LINSEY Bond signed Naomi SCREENING DIGITAL TOMOSYNTHESIS OF On: 05-Dec-2016 Intent BREAST ([id number])By: Naomi Colunga DO, DO, Kathleen THYROID ULTRASOUND ([id number])By: On: 31-May-2016 Intent Naomi Colunga DO, DO, Kathleen Spirometry (54723)By: Cristine HAY, On: 25-Apr-2016 Intent Naomi Bautista DO Comments: good PNEUM VAC ADLT/IMUMNOSPR, SBC/INTRM On: 25-Apr-2016 Intent ([id number])By: Naomi Colunga DO Comments: pneumovaxlot:[id number]:08/24/17ite:lt deltroute:IMdose:.5mlD.DASHA Kat DO, Kathleen ELECTROCARDIOGRAM, COMPLETE (ECG) On: 25-Apr-2016 Intent ([id number])By: Naomi Colunga DO Comments: nsr no acute chg Naomi Colunga DO Flu Vaccine (Quadrivalent) [id number]: On: 24-Jan-2016 Intent Willy Kat Comments: FLUlot: [id number]:10/04/16site:Lt deltoidroute:IMdose:.5mlDASHA GONZALES Planned Medications INFUSION, NORMAL SALINE SOLUTION , 1000 CC Ordered: 17-Jun-2017 Pending Rosaura Upton CNP INJECTION, CEFTRIAXONE SODIUM, PER 250 MG Ordered: 06-Feb-2018 Pending Leticia Bernard DO Phenergan 50 MG/ML Injection Solution Ordered: 17-Jun-2017 Pending Rosaura Upton CNP Instructions Name Dates Details Smoker : How to access health information online Indication: Smoker Smoker : How to access health information online - Detail Indication: Smoker Smoker : Patient Instructions Indication: Smoker Cellulitis : How to access health information online Indication: Cellulitis Cellulitis : How to access health information online - Detail Indication: Cellulitis Cellulitis : Patient Instructions Indication: Cellulitis Current smoker : How to access health information online Indication: Current smoker Current smoker : How to access health information online - Detail Indication: Current smoker Current smoker : Patient Instructions Indication: Current smoker Need for prophylactic vaccination and inoculation against influenza (Renamed from Need for immunization against influenza) : How to access health information online Indication: Need for prophylactic vaccination and inoculation against influenza (Renamed from Need for immunization against influenza) Need for prophylactic vaccination and inoculation against influenza (Renamed from Need for immunization against influenza) : How to access health information online - Detail Indication: Need for prophylactic vaccination and inoculation against influenza (Renamed from Need for immunization against influenza) Need for prophylactic vaccination and inoculation against influenza (Renamed from Need for immunization against influenza) : Patient Instructions Indication: Need for prophylactic vaccination and inoculation against influenza (Renamed from Need for immunization against influenza) Current smoker : How to access health information online Indication: Current smoker Current smoker : How to access health information online - Detail Indication: Current smoker Current smoker : Patient Instructions Indication: Current smoker Current smoker : How to access health information online Indication: Current smoker Current smoker : How to access health information online - Detail Indication: Current smoker Current smoker : Patient Instructions Indication: Current smoker Current smoker : How to access health information online Indication: Current smoker Current smoker : How to access health information online - Detail Indication: Current smoker Current smoker : Patient Instructions Indication: Current smoker Current smoker : How to access health information online Indication: Current smoker Current smoker : How to access health information online - Detail Indication: Current smoker Current smoker : Patient Instructions Indication: Current smoker BMI 50.0-59.9, adult : How to access health information online Indication: BMI 50.0-59.9, adult BMI 50.0-59.9, adult : How to access health information online - Detail Indication: BMI 50.0-59.9, adult BMI 50.0-59.9, adult : Patient Instructions Indication: BMI 50.0-59.9, adult Diabetes typeII,controlled, renal comp : How to access health information online Indication: Diabetes typeII,controlled, renal comp Diabetes typeII,controlled, renal comp : How to access health information online - Detail Indication: Diabetes typeII,controlled, renal comp Diabetes typeII,controlled, renal comp : Patient Instructions Indication: Diabetes typeII,controlled, renal comp BMI 50.0-59.9, adult : How to access health information online Indication: BMI 50.0-59.9, adult BMI 50.0-59.9, adult : Patient Instructions Indication: BMI 50.0-59.9, adult Smoker : How to access health information online Indication: Smoker Smoker : How to access health information online - Detail Indication: Smoker Smoker : Patient Instructions Indication: Smoker Smoker : How to access health information online Indication: Smoker Smoker : How to access health information online - Detail Indication: Smoker Smoker : Patient Instructions Indication: Smoker Hyperlipidemia, mild : Patient Instructions Indication: Hyperlipidemia, mild Diabetes typeII,controlled, renal comp : How to access health information online Indication: Diabetes typeII,controlled, renal comp Diabetes typeII,controlled, renal comp : How to access health information online - Detail Indication: Diabetes typeII,controlled, renal comp Diabetes typeII,controlled, renal comp : Patient Instructions Indication: Diabetes typeII,controlled, renal comp Dysuria : How to access health information online Indication: Dysuria Dysuria : How to access health information online - Detail Indication: Dysuria Dysuria : Patient Instructions Indication: Dysuria BMI 50.0-59.9, adult : How to access health information online Indication: BMI 50.0-59.9, adult BMI 50.0-59.9, adult : How to access health information online - Detail Indication: BMI 50.0-59.9, adult BMI 50.0-59.9, adult : Patient Instructions Indication: BMI 50.0-59.9, adult Cellulitis of left lower extremity : How to access health information online Indication: Cellulitis of left lower extremity Cellulitis of left lower extremity : How to access health information online - Detail Indication: Cellulitis of left lower extremity Cellulitis of left lower extremity : Patient Instructions Indication: Cellulitis of left lower extremity Cellulitis of left lower extremity : How to access health information online Indication: Cellulitis of left lower extremity Cellulitis of left lower extremity : How to access health information online - Detail Indication: Cellulitis of left lower extremity Cellulitis of left lower extremity : Patient Instructions Indication: Cellulitis of left lower extremity Hematuria : How to access health information online Indication: Hematuria Hematuria : How to access health information online - Detail Indication: Hematuria Hematuria : Patient Instructions Indication: Hematuria Smoker : How to access health information online Indication: Smoker Smoker : How to access health information online - Detail Indication: Smoker Smoker : Patient Instructions Indication: Smoker Edema extremities : Patient Instructions Indication: Edema extremities Edema extremities : How to access health information online Indication: Edema extremities Edema extremities : How to access health information online - Detail Indication: Edema extremities Edema extremities : Patient Instructions Indication: Edema extremities Encounters Office Visit On: 15-Apr-2018 13:58 Encounter Reason: Cellulitis - Symptoms include pain (sore on the back of her leg), swelling, tenderness and warmth. Symptoms are located on the left leg and on the right leg. The patient describes the pain as burning. O End: 15-Apr-2018 15:58 nset was 1 day(s) ago. The patient describes this as worsening. Associated symptoms do not include chills, fatigue or red streaks. 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 Symptoms are located on the left leg and on the right leg. The patient describes the pain as burning. O End: 08-Feb-2018 13:58 nset was 1 day(s) ago. The patient describes this as worsening. Associated symptoms do not include chills, fatigue or red streaks. Note for Cellulitis: has had cellulitis in past years ago- but bumps have been coming and going hx- of mrsa- treated one time in hosptial for 10 days - last time 8 years ago or so- no temp no nause or vomiting- has le edema worse than normal and has been doing alot of standing and has been off her diuretics Encounter Diagnosis: BMI 50.0-59.9, adult, Current smoker, Cellulitis, Pustules determined by examination, Leg edema [facility] Office Visit On: 29-Dec-2017 11:49 Encounter Reason: Abdominal pain - The onset of the pain has been gradual and has been occurring in an intermittent pattern for 30 minutes. The course has been recurrent. The pain is described as a severe sharp pain, sta End: 29-Dec-2017 12:56 bbing and crampy. The pain is described as being located in the epigastrium and upper abdomen. The pain radiates to the right upper quadrant and left upper quadrant. The symptoms have no aggravating fac tors. The symptoms are relieved by nothing (stretching out and putting pressure on it). The symptoms have been associated with bloating and constipation.Encounter Diagnosis: BMI 50.0-59.9, adult, Current smoker, Epigastric pain, Uncontrolled type 2 diabetes mellitus with stage 1 chronic kidney disease, unspecified half-way insulin use status, Nutritional counseling, Rash [facility] Annotation/Addendum On: 11-Dec-2017 13:20 Encounter Diagnosis: Screening mammogram, encounter for End: 11-Dec-2017 13:22 [facility] Visit On: 10-Dec-2017 14:06 Encounter Reason: Diabetes Type II, Follow UpEncounter Diagnosis: Need for prophylactic vaccination and inoculation against influenza (Renamed from Need for immunization against influenza), Glomerulonephritis, IgA, End: 10-Dec-2017 15:00 Uncontrolled type 2 diabetes mellitus with stage 1 chronic kidney disease, unspecified terminal press operator insulin use status, Skin sore, Nutritional counseling [facility] Office Visit On: 16-Oct-2017 14:15 Encounter Reason: Follow up for chronic medical issues - The patient feels well with minor complaints, has decreased energy level and is sleeping poorly. Patient has been compliant with instructions. Current medication u End: 17-Oct-2017 8:35 se: no side effects and compliant with dosing regimen. Patient sleeps 8 hours per night. Nutrition: supplemental vitamins. The medical issues the patient is following up for include All identified probl ems below, blood sugar issues, cardiac issues, high blood pressure, high cholesterol and other. weight :.Encounter Diagnosis: BMI 50.0-59.9, adult, Current smoker, Adult hypothyroidism, Hypertension, Hyperlipidemia, mild, Glomerulonephritis, IgA, Diabetes typeII,controlled, renal comp (250.40), Pulmonary hypertension, NOY on CPAP, Vitamin D deficiency, Left groin hernia [facility] Office Visit On: 24-Sep-2017 14:33 Encounter Diagnosis: BMI 50.0-59.9, adult, Current smoker, History of sun exposure, severe, Itch of skin, Glomerulonephritis, IgA, Arthritis, Pain in both hands, Hypertension, Tachycardia, Proteinuria, unspecified type End: 24-Sep-2017 15:43 [facility] Visit On: 25-Jun-2017 12:35 Encounter Reason: Follow up for chronic medical issues - The patient does not feel well (issues with breathing. Saw Dr. Latham and he changed meds), has decreased energy level and is sleeping poorly. Patient has been comp End: 25-Jun-2017 15:26 liant with instructions. Current medication use: no side effects and compliant with dosing regimen. Patient sleeps 7 hours per night. Nutrition: supplemental vitamins. The medical issues the patient is following up for include All identified problems below, blood sugar issues, cardiac issues, high blood pressure, high cholesterol and other. weight :.Encounter Diagnosis: BMI 50.0-59.9, adult, Current smoker, Pulmonary hypertension, Diabetes typeII,controlled, renal comp (250.40), Adult hypothyroidism, Hyperlipidemia, mild, Hypertension, Esophagitis, Acute gastritis without hemorrhage, unspecified gastritis type, Adenoma malignum, Sinus tachycardia, Vitamin D deficiency, Glomerulonephritis, IgA, Nutritional counseling, NOY on CPAP, Chronic asthma without complication, unspecified asthma severity, unspecified whether persistent, Thyroid nodule [facility] Visit On: 17-Jun-2017 13:02 Encounter Reason: Vomiting - Symptoms include nausea and vomiting (diarrhea also). Onset was 3 day(s) ago. Note for Vomiting: Reports family members with GI problem, End: 17-Jun-2017 14:52 [ADDITIONAL REASON] Nausea - Note for Nausea: Has had nausea and vomiting, projectile vomiting. Encounter Diagnosis: BMI 50.0-59.9, adult, Current smoker, Dehydration, Vomiting alone, Nausea [facility] Visit On: 09-Apr-2017 14:48 Encounter Reason: forms for hover roundEncounter Diagnosis: Smoker, BMI 50.0-59.9, adult, Asthma, Pulmonary hypertension, mild, Diabetes typeII,controlled, renal comp (250.40), Glomerulonephritis, IgA End: 09-Apr-2017 15:51 [facility] Annotation/Addendum On: 08-Apr-2017 10:37 Encounter Diagnosis: UTI (urinary tract infection) End: 08-Apr-2017 10:49 [facility] Visit On: 26-Mar-2017 14:12 Encounter Reason: Follow up for chronic medical issues - The patient feels well with minor complaints, has good energy level and is sleeping well. Patient has been compliant with instructions. Current medication use: no End: 26-Mar-2017 16:15 side effects and compliant with dosing regimen. Patient sleeps 7 hours per night. Nutrition: balanced diet and supplemental vitamins. The medical issues the patient is following up for include All ident ified problems below, blood sugar issues, high blood pressure, high cholesterol and other. blood pressure range :, fasting blood sugars : (130 to 150) and weight :., [ADDITIONAL REASON] UTI - The urinary symptoms are described as frequency. The symptoms have been occurring for 1 month and have been constant. Encounter Diagnosis: Diabetes typeII,controlled, renal comp (250.40), BMI 50.0-59.9, adult, Smoker, Hypertension, Vitamin D deficiency, Hyperlipidemia, mild, Pulmonary hypertension, mild, Adult hypothyroidism, Fatty liver, Glomerulonephritis, IgA, Asthma, NOY on CPAP, Acute swimmer's ear of right side, Abnormal urine odor, Stress reaction [facility] Phone Encounter On: 24-Jan-2017 15:57 Encounter Diagnosis: Controlled type 2 diabetes mellitus without complication End: 24-Jan-2017 16:00 [facility] Visit On: 18-Dec-2016 13:52 Encounter Reason: Follow up for chronic medical issues - The patient feels well with minor complaints, has decreased energy level and is sleeping well. Patient has been compliant with instructions. Current medication use End: 18-Dec-2016 15:12 : no side effects and compliant with dosing regimen. Patient sleeps 8 hours per night. Nutrition: balanced diet and supplemental vitamins. The medical issues the patient is following up for include All identified problems below, blood sugar issues, fibromyalgia, high blood pressure, high cholesterol, kidney problems and other. blood pressure range :, fasting blood sugars : and weight :.Encounter Diagnosis: Smoker, BMI 50.0-59.9, adult, NOY on CPAP , Pulmonary hypertension, mild, Hypertension, Controlled type 2 diabetes mellitus without complication, Fatty liver, Adult hypothyroidism, Hyperlipidemia, mild, Vitamin D deficiency, Asthma, Glomerulonephritis, IgA, Need for prophylactic vaccination and inoculation against influenza (Renamed from Need for immunization against influenza) [facility] Visit On: 05-Dec-2016 13:48 Encounter Reason: Follow up tests - Date: (11/29/16 labs).Encounter Diagnosis: Smoker, BMI 50.0-59.9, adult, Glomerulonephritis, IgA, Abscess of buttock, Pulmonary hypertension, mild, Stress reaction, History of abnormal mammogram, NOY on CPAP End: 05-Dec-2016 14:53 [facility] Phone Encounter On: 11-Oct-2016 8:26 Encounter Diagnosis: Abnormal TSH End: 11-Oct-2016 8:29 [facility] Office Visit On: 05-Sep-2016 10:55 Encounter Reason: Follow up hospital - Reason for ER visit: note: (was in [facility] sat to sun for sob they did not say what it was but got a referral to a lung doc DR. Gonsalze). The patient does not feel well.Encounter Diagnosis: BMI 50.0- 59.9, adult, End: 05-Sep-2016 11:35 Smoker, Mild intermittent asthma without complication, Chronic obstructive asthma with acute exacerbation (Renamed from Chronic obstructive asthma with exacerbation), Chest pain, atypical, Short of breath on exertion, Hypertension [facility] Visit On: 22-Aug-2016 13:05 Encounter Reason: Follow up tests - Date: (08/12/16 labs)., [ADDITIONAL REASON] Follow up for chronic medical issues - The patient feels well with minor complai End: 22-Aug-2016 14:07 nts (is wondering if its the new chol med becuase she was having tendonitis pain, and it was the new med she started....), has decreased energy level (tired, has been napping not normally a dinorah) and is sleeping poorly. Patient has been compliant with instructions. Current medication use: experiencing side effects (issue with pain in right arm). Patient sleeps 7 (but doesn't sleep straingt through a nd is waking up with headaches) hours per night. Encounter Diagnosis: BMI 50.0-59.9, adult, Smoker, Diabetes typeII,controlled, renal comp (250.40), Hyperlipidemia, mild, Nutritional counseling, Hypertension, Mild intermittent asthma without complication, Vitamin D deficiency, Adult hypothyroidism, Other proteinuria, Hematuria, Fatty liver [facility] Visit On: 12-Aug-2016 11:06 Encounter Reason: Follow up acute care visitEncounter Diagnosis: BMI 50.0-59.9, adult, Smoker, Diabetes typeII,controlled, renal comp (250.40), Osteoarthritis, chronic, Urinary incontinence in female, Nutritional counseling, Hyperlipidemia, mild End: 12-Aug-2016 12:04 [facility] Visit On: 07-Aug-2016 13:18 Encounter Reason: Cold Symptoms - Symptoms include nasal congestion, runny nose, postnasal drainage, dry cough and facial pressure. Onset was 2 week(s) ago. The symptoms occur constantly. The patient describes this as wo End: 07-Aug-2016 13:59 rsening. Symptoms are exacerbated by activity. Associated symptoms include wheezing and shortness of breath. Previous presentation included nasal congestion, runny nose, postnasal drainage and dry cough., [ADDITIONAL REASON] Urinary Frequency Encounter Diagnosis: Osteoarthritis, chronic, Cough, Urinary frequency, Smoker, BMI 50.0-59.9, adult, Flu-like symptoms, Sinusitis, acute, Allergic rhinitis [facility] Phone Encounter On: 03-Jun-2016 14:12 Encounter Diagnosis: Hypertension End: 03-Jun-2016 14:14 [facility] Visit On: 31-May-2016 8:22 Encounter Reason: Follow up tests - Date: (04/25/16 labs)., [ADDITIONAL REASON] UTI - The urinary symptoms are described as painful urination, frequency and bur End: 31-May-2016 9:20 juni. The symptoms have been occurring for 1 week and have been constant. The urine is described as clear. The symptoms have been associated with low back pain. The patient denies the use of oral contr aceptives, antibiotics, hormone replacement therapy or pyridium/uristat. Encounter Diagnosis: Dysuria, Smoker, Hypertension, Controlled type 2 diabetes mellitus without complication, Hematuria, Vitamin D deficiency, Abnormal TSH, Adult hypothyroidism , Thyroid nodule, Hyperlipidemia, mild, Hemorrhagic cystitis [facility] Visit On: 25-Apr-2016 10:43 Encounter Reason: Follow up for chronic medical issues - The patient feels well with minor complaints, has good energy level and is sleeping well. Patient has been compliant with instructions. Current medication use: no End: 25-Apr-2016 12:14 side effects and compliant with dosing regimen. Patient sleeps 5 hours per night. Nutrition: balanced diet and supplemental vitamins. The medical issues the patient is following up for include All ident ified problems below, blood sugar issues, depression, high blood pressure and high cholesterol. blood pressure range : and weight :.Encounter Diagnosis: Smoker, BMI 50.0-59.9, adult, Hypertension, Controlled type 2 diabetes mellitus without complication, Osteoarthritis, chronic, NOY on CPAP, Edema extremities, Pneumococcal vaccination given, Mild intermittent asthma without complication, Nutritional counseling [facility] Visit On: 04-Apr-2016 10:55 Encounter Reason: Follow up acute care visit - The patient worsening. Patient has been compliant with instructions. Current medication use: no side effects and compliant with dosing regimen., End: 04-Apr-2016 11:36 [ADDITIONAL REASON] Follow up tests - Diagnostic tests include other (labs). Encounter Diagnosis: Smoker, Cellulitis of left lower extremity, Hypertension, Ulcer, BMI 60.0-69.9, adult [facility] Visit On: 27-Mar-2016 8:04 Encounter Reason: Follow up acute care visit - The patient worsening. Patient has been compliant with instructions. Current medication use: no side effects and compliant with dosing regimen.Encounter Diagnosis: Cellulitis of left lower extremity, End: 27-Mar-2016 13:52 Hematuria [facility] Visit On: 21-Mar-2016 13:36 Encounter Reason: Hematuria - No changes in management were made at the last visit. Symptoms include tea colored urine. Onset was sudden week(s) ago. There is no known event that preceded symptom onset. The patient descr End: 21-Mar-2016 14:31 ibes this as moderate in severity. Associated symptoms include back pain. The patient is not currently being treated for this problem. Note for Hematuria: Looks like blood in the toliet bowl when I pe e. I've noticed the blood in the urine for about a week. Has had back pain, but not sure if it is from her back or kidneys. Haven't checked temperature. Has been chilling. I get hot and then cold an d hot again. Urine smells. No burning or belly pain, but do have some itching. Was given Bactrim DS yesterday, but have not picked up from pharmacy yet. Always get UTI's. I've seen Dr. Begum urologist in [place], but haven't seen him in awhile. Had kidney failure in 2006. Encounter Diagnosis: Hematuria, BMI 60.0-69.9, adult, Smoker, History of MRSA infection, Skin sore, Cellulitis of left lower extremity [facility] Visit On: 20-Mar-2016 11:04 Encounter Diagnosis: BMI 60.0-69.9, adult, Smoker, Edema extremities, Cellulitis of left lower extremity, Skin sore, History of MRSA infection, Controlled type 2 diabetes mellitus without complication End: 20-Mar-2016 12:55 [facility] Visit On: 08-Feb-2016 11:37 Encounter Reason: EdemaEncounter Diagnosis: NOY on CPAP, Edema extremities, Osteoarthritis, chronic, Body mass index 45.0-49.9, adult, Hyperglycemia, Acute epigastric pain End: 08-Feb-2016 12:34 [facility] Visit On: 24-Jan-2016 11:40 Encounter Reason: Leg Pain - This condition occurred without any known injury. The patient sustained an injury to the left hip, left thigh, left lower leg, right hip and right thigh. This occurred 2 month(s) ago. Symptom End: 24-Jan-2016 15:12 s include leg pain, decreased range of motion, difficulty bearing weight and difficulty ambulating. Note for Leg pain: left leg is worse then the other, [ADDITIONAL REASON] Follow up tests - Date: (01/22). Encounter Diagnosis: Arrhythmia, Edema extremities, Need for prophylactic vaccination and inoculation against influenza (Renamed from Need for immunization against influenza), NOY on CPAP, Noncompliance with medications, Kidney disease, Hypertension [facility] [employer] [facility] Yue Zapata; a guarantor
--- OUTSIDE RECORDS SUMMARY | 2018-06-27 05:41 | XMS RPT_ITS | Continuity of Care Document ---
:1970 Author Organization [facility] Address [address] [facility] [address] [place] [address] Phone Care Team Providers Name Role Phone Naomi Colunga DO Unavailable Edmundo Parr MD Unavailable Tanphaichitr - Crum, Dre Unavailable Edy Galan DO Unavailable [facility], Wound Unavailable Renaldo Pimentel Unavailable Unavailable Messenger, DECK ENGINE OPERATOR Hafsa Unavailable Unavailable Reji Jorge Unavailable Unavailable Long DECK ENGINE OPERATORWinsome Unavailable Unavailable Unavailable Unavailable Problems Name Dates [...] Pneumococcal vaccination given (Z23, V06.6) Status: Active Pneumonia, bacterial (J15.9, 482.9) Comments: CAP post influenza Status: Active Pregnancies () Comments: 2. 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 old doc in [facility] on [facility] , Status: Active Urinary incontinence in female [...] 7 days Quantity: 14 {Tablet} Refills: 0 Ordered:17-Apr-2018 Jase Colunga DO, DO, Kathleen Start : 17-Apr-2018 Active Bevespi Aerosphere 9-4.8 MCG/ACT Inhalation Aerosol uad (9-4.8 MCG/ACT) Active Cartia XT 240 MG Oral Capsule Extended Release 24 Hour 1 (one) Capsule qd for 0 days Quantity: 30 {Capsule} Refills: 3 Ordered:24-Oct-2017 Jase Colunga DO, DO, Kathleen Start : 24-Oct-2017 Active Cephalexin 500 MG Oral Tablet 1 (one) Tablet Tablet q6hr for 7 days Quantity: 28 {Tablet} Refills: 0 Ordered:17-Apr-2018 Jase Colunga DO, DO, Kathleen Start : 17-Apr-2018 Active Claritin 10 MG Oral Capsule 1 [...] DO, DO, Kathleen Start : 17-Oct-2017 Active Waco 5-325 MG Oral Tablet 1 bid prn pain (5-325 MG) Active ProAir HFA 108 (90 Base) MCG/ACT Inhalation Aerosol Solution 2 (two) Puff Puff tid prn for 0 days Quantity: 1 {Inhaler} Refills: 0 Ordered:07-Aug-2016 KelbyopheliacarenReji Start : 07-Aug-2016 Active Synthroid 50 MCG [...] Tresiba FlexTouch 100 UNIT/ML Subcutaneous Solution Pen-injector 12 Unit qam for 0 days Quantity: 1 {Box} Refills: 0 Ordered:22-Apr-2018 Jase Colunga DO, DO, Kathleen Start : 22-Apr-2018 Active Voltaren 1 % Transdermal Gel 1 [...] days Quantity: 20 {Tablet} Refills: 0 Ordered:24-Jan-2017 Karuna Jorgesea Start : 24-Jan-2017 End : 03-Feb-2017 Inactive [...] Completed Tubal Ligation Completed Date Value Details 16-Apr-2018 Chest PA and Lateral Result: Comments: See Note; NOTES: [facility] Imaging Services [address] [place] [address] Chest PA and Lateral MR#: [id number] Acct: [id number] Name: JANIS ZAPATA Rep #: [id number] : 1970 F 47 From: Edmundo Carrasco MD PCP: Naomi Colunga DO Status: REG CLI Study: Chest PA and Lateral Date of Exam: 04/16/18 Exam# [id number] Ordering Dr: Naomi Colunga DO STUDY: X-R AY CHEST REASON FOR EXAM: Female, 47 years old. Drug cough, 3 weeks. TECHNIQUE: COMPARISON: None. FINDINGS: Mildly increased airspace opacities infrahilar, sugges ting the possibility of a lower lobe posterior segmental infiltrate or bronchial wall thickening, subsegmental, best seen in the lateral view. Not apparent in the frontal view. No other dense focal infi ltrate. No effusion or pneumothorax. Mild cardiomegaly. Normal mediastinal silhouette, lesli and pleural margins. No acute osseous or upper abdominal process. RAD/Chest PA and Lateral IMPRESSION: Bandlike opacity projecting from the inferior hilum posterior segment lower lobe, slightly overlapping the inferior vertebral bodies. Seen in the latera l view only. Suspected subsegmental infiltrate. Difficult to discern if this is on the right or the left. Electronically Signed: Edmundo Carrasco MD at 11:01 EST Tel , Service support , CC: Naomi Colunga DO Pca: Signed 05-Feb-2018 Pulmonary Visit Report Result: Comments: See Note; NOTES: [facility] [address] [place] [address] OFFICE VISIT Date of Service: 02/05/18 MR#: [id number] Acct: [id number] Name: JANIS PURVIS Rep #: [id number] : 1970 Provider: Albania Brenner Age/Sex: 47/F [place] [facility] [place] Status: Signed [...] cessation. You may call the free hotline 6-126-DPYMNOW. 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 Required: No Ac companied by: Family / [...] DAILY 08/31/16 [History Confirmed 02/05/18] Tiotr opium Sylva [Spiriva 18 MCG] 1 puff INHALATION DAILY [...] Spent - greater than 10 minutes: Yes (59648) 02/05/18 1425 <Electronically signed by Albania Brenner BUSINESS PARTNER-C> Date Gino Brenner BUSINESS PARTNER-C Cosigner Signature: Date (if applicable) CC: Naomi Colunga DO 02-Jan-2018 Pulmonary Function Report Comp Result: Comments: See Note; NOTES: [facility] Pulmonary Services/Neurology [address] [place] [address] MR#: [id number] Acct: [id number] Name: JANIS ZAPATA Rep #: [id number] : 0 1970 47 From: Say Rosa MD Referring Dr: Albania Brenner BUSINESS PARTNER Status: REG CLI Ordering Dr: Date: Location: [facility] Sex: F C COMPLETE PULMONARY FUNCTION TEST INTERPRETATION Brief HPI: Patient is a 47 year old female, currently under the care of Albania Brenner, who presents to [facility] for complete pulmonary function tests secondary [...] significant worsening compared to study in 2017. 01/02/1809 <Electronically signed by Say Rosa MD> Date Say Rosa MD CC: Say Rosa MD; Albania Brenner; Naomi Colunga DO Date Dictated: 01/02/18605 Date Transcribed: 01/02/18605 Pca: CAREN Signed 05-Dec-2017 Emergency Department Summary Result: Comments: See Note; NOTES: [facility] Medical Records Department [address] [place] [address] Emergency Department Summary 12/05/17 0651 MR#: [id number] Acct: [id number] Name: JANIS ZAPATA Rep #: [id number] : 1970 47 From: Alvarez Vu PCP: [...] injections in the past. She is on [place] 1-2 ta bs at night. History of [...] pain This note was gene rated with [employer] dictation software. It may contain incorrect words, [...] Primar y Care Provider. Call [facility] ([phone]) or report to the closest Emergency Room. Call 911 if necessary. 12/05/17 0843 <Electronically signed by Alvarez Vu> Date __ Alvarez Vu Cosigner Signature (If Indicated): Date CC: Naomi Colunga DO 20-Oct-2017 Discharge Instruction Result: Comments: See Note; NOTES: [facility] Medical Records Department [address] [facility] [place] [address] Discharge Instruction 10/20/17 1410 MR#: [id number] Acct: [id number] Name: JANIS ZAPATA Rep #: [id number] : 1970 47 From: Estephania Shay MD [...] your Primary Care Provider. Call Doctors Registry ([phone]) or report to the closest Emergency Room. Ca ll 911 if necessary. 10/20/17 1411 <Electronically signed by Estephania Shay MD> Date Estephania Shay MD Cosigner Signature (If Ind icated): Date CC: Naomi Colunga DO 20-Oct-2017 Discharge Instruction Result: Comments: See Note; NOTES: [facility] Medical Records Department [address] [place] [address] Discharge Instruction 10/20/17 1409 MR#: [id number] Acct: [id number] Name: JANIS ZAPATA Rep #: [id number] : 1970 47 From: Estephania Shay MD PCP: Naomi Colunga DO Status: [facility] ER ED Disposition - Plan for ED [...] your Primary Care Provider. Call Doctors Registry ([phone]) or report to the closest Emergency Room. Ca ll 911 if necessary. 10/20/17 1410 <Electronically signed by Estephania Shay MD> Date Estephania Shay MD Cosigner Signature (If Ind icated): Date CC: Naomi Colunga DO 20-Oct-2017 Emergency Department Summary Result: Comments: See Note; NOTES: [facility] Medical Records Department [address] [place] [address] Emergency Department Summary 10/20/17 1009 MR#: [id number] Acct: [id number] Name: JANIS ZAPATA Rep #: [id number] : 1970 47 From: Estephania Shay MD [...] pain, constipation This note was generated with [employer] dictation software. It may contain incorrect words, [...] problems, contact your Primary Care Provider. Call [facility] ([phone]) or report to the closest Emergency Room. Call 911 if necessary. 10/20/17 1409 <Electronically signed by Estephania Shay MD> Date Estephania Shay MD Cosigner Signature (If Indica germain): Date CC: Naomi Colunga DO 20-Oct-2017 Abdomen/Pelvis WITH Contrast Result: Comments: See Note; NOTES: [facility] Imaging Services [address] [place] [address] Abdomen/Pelvis WITH Contrast MR#: [id number] Acct: [id number] Name: JANIS ZAPATA Rep #: [id number] : 1970 F 47 From: Matt Beckwith MD PCP: Naomi Colunga DO Status: [facility] ER Study: Abdomen/Pelvis WITH Contrast Date of Exam: 10/20/17 Exam# [id number] Ordering Dr: Grecia Shay MD STUDY: CT [...] Matt Beckwith MD at 13:14 EDT Tel [phone], Service support , CC: Estephania Shay MD; Naomi Colunga DO Pca: Signed 03-Oct-2017 6 Minute Walk Test Result: Comments: See Note; NOTES: [facility] Pulmonary Services/Neurology [address] [place] [address] MR#: [id number] Acct: [id number] Name: JANIS ZAPATA Rep #: [id number] : 1970 47 From: Say Rosa MD Referring Dr: Albania Brenner BUSINESS PARTNER Date: Ordering Dr: Sex: F C Location: PSN PSN 6 Minute Walk Test - 6 Minute Walk Test 6 Minute Walk Test: 6 Minute Walk Test P SN:6-Minute Walk Test Start: 10/03/17 11:21 Freq: Status: Active Protocol: RESP.6MINW Document 10/03/17 10:55 [facility] (Rec: 10/03/17 11:24 [facility] [id number]) 6 Minute Walk Test Date Performed 10/03/17 [...] supplemental oxygen is indicated at this time. 10/03/17 1322 <Electronically signed by Say kenyon MD> Date Say Rosa MD CC: Date Dictated: 10/03/171320 Date Transcribed: 10/03/171320 Pca: Say Rosa Signed 07-Jul-2017 Operative Report Result: Comments: See Note; NOTES: [facility] Medical Records Department [address] [place] [address] Operative Report 07/07/17 1122 MR#: [id number] Acct: [id number] Name: RUBEN ZAPATA Zaida Luis Rep #: [id number] : 1970 47 From: Harry Gagnon MD PCP: Naomi Colunga DO Status: [facility] Y Location: [place] [address] Problem List (1) DDD (degenerative disc disease), lumbosacral Status: [facility] (2) Radiculopathy of lumbosacral region Status: [...] consent was obtained. IV inserted per r [facility] protocol. The patient was taken to the [...] Spine Inj Result: Comments: See Note; NOTES: [facility] Imaging Services [address] [place] [address] Fluor Guidance for Spine Inj MR#: [id number] Acct: [id number] Name: JANIS ZAPATA Rep #: [id number] : 1970 F 47 From: Fabrizio Meade MD PCP: Naomi Colunga DO Status: [facility] Study: Fluor Guidance for Spine Inj Date of Exam: 07/07/17 Exam# [id number] Ordering Dr: Harry Gagnon CLINICAL HISTORY: Female, [...] at 7:19 EDT Tel , Service support [phone], CC: Harry Gagnon; Naomi Colunga DO Pca: Signed 21-Jun-2017 Discharge Instruction Result: Comments: See Note; NOTES: [facility] Medical Records Department [address] [place] [address] Discharge Instruction 06/20/17 2228 MR#: [id number] Acct: [id number] Name: JANIS ZAPATA Rep #: [id number] : 1970 46 From: Harry Cortez MD PCP: Naomi Colunga DO Status: [facility] ER ED Disposition - Plan for ED [...] your Primary Care Provider. Call Doctors Registry ([phone]) or report to the closest Emergency Room. Call 911 if necessary. 06/21/17 0030 <Electron ically signed by Harry Cortez MD> Date Harry Cortez MD Cosigner Signature (If Indicated): Date CC: Naomi Colunga DO 21-Jun-2017 Emergency Department Summary Result: Comments: See Note; NOTES: [facility] Medical Records Department [address] [place] [address] Emergency Department Summary 06/20/17 1839 MR#: [id number] Acct: [id number] Name: JANIS ZAPATA Rep #: [id number] : 1970 46 From: Harry Cortez MD PCP: Naomi Colunga DO Status: REG ER - ER Visit Summary Date of Service: 06/20/17 Chief Complaint: Diarrhea History of Present Illness: The patient is a 46 F 3 of irritable bowel syndrome and iha-vtrntpo-ryfzfgrmb diabetes along with renal insufficiency. Patient states [...] culture pending This note was generated with [employer] dictation software. It may con tain incorrect [...] problems, contact your Primary Care Provider. Call [facility] Registry ([phone]) or report to the closest Emergency Room. Call 911 if necessary. 06/21/17 0030 <Electronically signed by Harry Cortez MD> Date ____ Harry Cortez MD Cosigner Signature (If Indicated): Date CC: Naomi Colunga DO 29-May-2017 Pulmonary Visit Report Result: Comments: See Note; NOTES: [facility] [address] [place] [address] OFFICE VISIT Date of Service: 05/29/17 MR#: [id number] Acct: [id number] Name: JANIS PURVIS Rep #: [id number] : 1970 Provider: Albania Brenner Age/Sex: 46/F [place] [facility] [place] Status: Signed [...] PO DAILY 08/31/16 [History Confirmed 05/29/17] Tiotropium Sylva [Spiriva 18 MCG] 1 puff INHALATION DAILY [...] tab PO BID 04/03/17 [History Confirmed 05/29/17] PENDING SALE TO [facility] Medical History Continuous tobacco abuse (Chronic) WATTS [...] Spent - greater than 10 minutes: Yes (66697) 05/29/17 1347 <Electronically signed by Albania BURDICK> Date Albania BURDICK Cosigner Signature : Date (if applicable) CC: Naomi Colunga DO 16-Apr-2017 OT Functional Capacity Eval Result: Comments: See Note; NOTES: [facility] Occupational Therapy [facility] [facility] [place], [place] [id number] Fax REHABILITATION SERVICES INI TIA EVALUATION MR#: [id number] Acct: [id number] Name: JANIS ZAPATA Rep #: [id number] : 1970 46 From: Kelly Valdez OTR/L, CHT Referring DrYaneth: Naomi Colunga DO Status: REG RCR Insuranc e: [facility] Eval Date: SELF PAY INSURANCE [...] has had right carpal tunnel surgery in 2010. Pt states she needs a left capal [...] dx 2012. Arrhythmia dx 2013. Hypthyroid dx 2015. Ambilical hernia dx 2015. Pulmonary hypertension dx 2015. COPD dx 2016. Kidney failure dx 2016 - Symptoms Symptoms: Joint Pain. Bilateral hip pain. Nubness/tingling in legs, feet. Spasum. limited mobility. SOB - Pain Pain: Pt reports pain is 4/10 and with activity 8/10. Pt states she is currently 4/10 with taking he r pain medication. 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 Job required standing, lifing and bending. Pt states she left this job due to pain and the inability to perform her job duties safely. - Behavioral Behavioral: pt was coorperative during the assessment. - ADLS ADLS: Pt states she lives with her , son future otcddhuh-il-ghm and future step granddaughter. Home is a [...] is a electirc chair avalible. Pt dr bansk independently. 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 pt states she does have adaptive equipment to use for toliting (toilet wi pe aide), home attendant, bed side comode, elevated toilet seat, sock [...] throughout 4/5 UB and LB strength Right Spider Assembler Strength Garland ge: 63.33 Right Spider Assembler Strength Percentile: 28% Left Spider Assembler Strength Average: 50.00 Left Spider Assembler Strength Percentile: 17% Right Lateral Pinch Average: [...] with bilateral hands. <Electronically signed by Kelly MOORE/Helene CHT> 04/16/17 1612 CC: Naomi Colunga DO Signed For Medicare only, by signing this I certify the plan of care. Physicians Signature Date 03-Apr-2017 Emergency Department Summary Result: Comments: See Note; NOTES: [facility] Medical Records Department [address] [place] [address] Emergency Department Summary 04/03/17 1527 MR#: [id number] Acct: [id number] Name: JANIS ZAPATA Rep #: [id number] : 1970 46 From: Ana Paula Mendieta [...] weakness, improved This note was generated with [employer] dictation software. It may contain incorrect words, [...] your Primary Care Provider. Call Doctors Registry ([phone]) or report to the closest Emergency Room. Call 911 if necessary. 04/03/17 1720 <Electronically signed by Ana Paula Mendieta MD> Date Ana Paula Mendieta MD Cosigner Signature (If Indicated): Date CC: Naomi Colunga DO 03-Apr-2017 Discharge Instruction Result: Comments: See Note; NOTES: [facility] Medical Records Department [address] [place] [address] Discharge Instruction 04/03/17 1532 MR#: [id number] Acct: [id number] Name: JANIS ZAPATA Rep #: [id number] : 1970 46 From: Ana Paula Mendieta MD PCP: Naomi Colunga DO Status: REG ER ED Disposition - Plan for ED Patient: Disposition: Home or Assisted Living Chief Complaint : Lower Extremity Injury Instructions: ED Weakness UKO Referrals: Naomi Colunga DO [Primary Care Provider] - 1 Week What to do if you have Problems For any increased pain, shortness of breath, bl eeding, nausea or vomiting, chest pain, or any unexpected problems, contact your Primary Care Provider. Call Doctors Registry ([phone]) or report to the closest Emergency Room. Call 911 if necessar y. 04/03/17 1534 <Electronically signed by Ana Paula Mendieta MD> Date Ana Paula Mendieta MD Cosigner Signature (If Indicated): Date CC: Naomi Colunga DO 03-Apr-2017 Lumbar Spine 2 or 3 Views Result: Comments: See Note; NOTES: [facility] Imaging Services [address] [facility] [place] [address] Lumbar Spine 2 or 3 Views MR#: [id number] Acct: [id number] Name: JANIS ZAPATA Rep #: [id number] : 1970 F 46 From: Louise Francis MD PCP: Naomi Colunga DO Status: REG ER Study: Lumbar Spine 2 or 3 Views Date of Exam: 04/03/17 Exam# [id number] Ordering Dr: Ana Paula Mendieta MD STUDY: [...] Electronically Signed: Louise Francis MD at 14:12 EST Rc hamilton , Service support , CC: Ana Paula Mendieta MD; Naomi Colunga DO Pca: Signed 03-Apr-2017 Pelvis 1 or 2 Views Result: Comments: See Note; NOTES: [facility] Imaging Services [address] [place] [address] Pelvis 1 or 2 Views MR#: [id number] Acct: [id number] Name: JANIS ZAPATA Rep #: [id number] : 1970 F 46 From: Louise Francis MD PCP: Naomi Colunga DO Status: REG ER Study: Pelvis 1 or 2 Views Date of Exam: 04/03/17 Exam# [id number] Ordering Dr: Ana Paula Mendieta MD STUDY: [...] L5 and S1 vertebral segments. ORDER #: RAD/Pelvis 1 or 2 Views IMPRESSION: Mild degenerative arthropathy of the left hip. Electronically Signed: Louise Francis MD at 14:15 EST , Service support [phone], CC: Ana Paula Mendieta MD; Naomi Colunga DO Pca: Signed 10-Feb-2017 Operative Report Result: Comments: See Note; NOTES: [facility] Medical Records Department [address] [place] [address] Operative Report 02/10/17 1112 MR#: [id number] Acct: [id number] Name: RUBEN ZAPATA Rep #: [id number] : 1970 46 From: Harry Gagnon MD PCP: Naomi Colunga DO Status: REG SDC Y Location: [place] [address] Report of Operation Date of Procedure: 02/10/17 [...] Jt Should/Hip/Knee Result: Comments: See Note; NOTES: [facility] Imaging Services [address] [place] [address] Inj/Asp Aakash Jt Should/Hip/Knee MR#: [id number] Acct: [id number] Name: JANIS ZAPATA Rep #: [id number] : 1970 F 46 From: Ministerio Vela MD PCP: Naomi Colunga DO Status: [facility] Study: Inj/Asp Aakash Jt Should/Hip/Knee Date of Exam: 02/10/17 Exam# [id number] Ordering Dr: Harry jama MD STUDY: X-RAY [...] , CC: Harry Gagnon; Naomi Colunga DO Pca: Signed 18-Dec-2016 SCREENING MAMM (CAD), BILAT Result: Comments: See Note; NOTES: [facility] Imaging Services [address] [place] [address] SCREENING MAMM (CAD), BILAT MR#: [id number] Acct: [id number] Name: JANIS ZAPATA Rep #: [id number] : 1970 F 46 From: Matt Beckwith MD PCP: Naoim Colunga DO Status: [facility] Study: SCREENING MAMM (CAD), BILAT Date of Exam: 12/18/16 Exam# [id number] Ordering Dr: Jd Colunga DO MAMMOGRAPHY - [...] biopsy of a clinically suspic ious abnormality. [id number] Electronically Signed: Matt Beckwith MD at 12:54 EDT Tel [phone], Service support , CC: Naomi Colunga DO Pca: Signed 16-Nov-2016 Echocardiogram Complete Result: Comments: See Note; NOTES: [facility] Cardiovascular Services [address] [place] [address] Echo Complete W/ Contrast 11/15/16 1357 MR#: [id number] Acct: [id number] Name: JANIS PURVIS Rep #: [id number] : 1970 46 From: Mukesh Gutierrez MD Attending Dr: Sharda Wylie PA-C Status: REG I Ordering Dr: Sharda Wylie PA-C Date: 11/15/16 Location: [facility] Sex: F C Admitted: Reason For Study: [...] Dictated: 11/15/16 1357 Date Transcribed: 11/16/16 1153 Pca: Signed 10-Nov-2016 Consultation Result: Comments: See Note; NOTES: [facility] Medical Records Department [address] [facility] [place] [address] Consultation 11/06/16 1831 MR#: [id number] Acct: [id number] Name: JANIS ZAPATA Rep #: [id number] : 1970 46 From: Kerrie Eng MD [...] - placement of drain in right b [facility] abscess Anesthesia - local 1% xylocaine with [...] Department Summary Result: Comments: See Note; NOTES: [facility] Medical Records Department [address] [place] [address] Emergency Department Summary 11/06/16 194 MR#: [id number] Acct: [id number] Name: JANIS ZAPATA Rep #: [id number] : 1970 46 From: Antione Barron MD [...] mg 30 clindamycin 300 mg 40 and Waco is 20 is to recheck from Dr. [...] ED Abscess IandD Prescriptions: Hydrocodone Bitart/Apap 5-325 [W[place] 5/325] 1 - 2 tablet PO Q4H [...] your Primary Care Provider. Call Doctors Re gistry ([phone]) or report to the closest Emergency Room. Call 911 if necessary. 11/07/16 0154 <Electronically signed by Antione Barron MD> Date Antione Barron MD Cosigner Signature (If Indicated): Date CC: Naomi Colunga DO Discharge Instruction Result: Comments: See Note; NOTES: [facility] Medical Records Department [address] [place] [address] Discharge Instruction 11/06/161932 MR#: [id number] Acct: [id number] Name: JANIS ZAPATA Rep #: [id number] : 1970 46 From: Antione Barron MD PCP: Naomi Colunga DO Status: REG ER ED Disposition - Plan for ED Patient: Chief Complaint: Abscess Instructions: ED Abscess IandD Prescriptions: Hydrocodone Bitart/Apap 5-325 [[place] 5/325] 1 - 2 tablet PO Q4H [...] your Primary Care Provider. Call [facility] ([phone]) or report to the closest Emergency Room. Call 911 if necessary. 11/06/161935 <Electronically signed by Antione Barron MD> Date Antione Barron MD Cosigner Signature (If Indicated): Date CC: Naomi Colunga DO 06-Nov-2016 Discharge Instruction Result: Comments: See Note; NOTES: [facility] Medical Records Department [address] [place] [address] Instructions for Home/Discharge Instructions 11/06/161828 MR#: [id number] Acct: [id number] Name: JANIS ZAPATA Rep #: [id number] : 1970 46 From: Kerrie Eng MD [...] Caplet] 1 tab PO DAILY 08/31/16 Tiotropium Sylva [Spiriva 18 MCG] 1 puff INHALATION DAILY [...] Up With: Velasquez or - call When: Th or , please call for day and time, thank you [phone] <Electronically signed by Kerrie Eng MD> Date Kerrie Eng MD CC: Naomi Colunga DO 06-Nov-2016 Emergency Department Summary Result: Comments: See Note; NOTES: [facility] Medical Records Department [address] [place] [address] Emergency Department Summary 11/06/16 1521 MR#: [id number] Acct: [id number] Name: JANIS ZAPATA Rep #: [id number] : 1970 46 From: Antione Barron MD [...] your Primary Care Provider. Call [facility] ([phone]) or report to the closest Emergency Room. Call 911 if necessary. 11/06/16 1543 &a mp;#60;Electronically signed by Antione Barron MD> Date Antione Barron MD Cosigner Signature (If Indicated): Date CC: Naomi Colunga DO 06-Nov-2016 Pelvis WITH IV Contrast Result: Comments: See Note; NOTES: [facility] Imaging Services [address] [place] [address] Pelvis WITH IV Contrast MR#: [id number] Acct: [id number] Name: JANIS ZAPATA #: [id number] : 1970 F 46 From: Ana Paula Blum MD PCP: Naomi Colunga DO Status: [facility] Study: Pelvis WITH IV Contrast Date of Exam: 11/06/16 Exam# [id number] Ordering Dr: Antione Barron MD STUDY: CT [...] Paula Blum MD at 16:55 EDT Tel [phone], S ervice support , CC: Antione Barron MD; Naomi Colunga DO Pca: Signed 17-Oct-2016 Pulmonary Function Report Comp Result: Comments: See Note; NOTES: [facility] Pulmonary Services/Neurology [address] [place] [address] MR#: [id number] Acct: [id number] Name: JANIS ZAPATA Rep #: [id number] : 0 1970 46 From: Say Rosa MD Referring Dr: Jeremias Gonsalez D.O. Status: REG CLI Ordering Dr: Date: Location: [facility] Sex: F C Pulmonary Function Report Comp Pulmonary Function Report Comp: COMPLETE PULMONARY FUNCTION TEST INTERPRETATION Brief HPI: Patient is a 46 year old female, currently under the care of Dr. Gonsalez, who presents to [facility] for complete pulmonary fu nction tests [...] poss ible concomitant pulmonary vascular disorder. 10/17/16 1626 <Electronically signed by Say Rosa MD> Date Say Rosa MD CC: Say levy MD; Naomi Colunga DO Date Dictated: 10/17/161622 Date Transcribed: 10/17/161622 Pca: CAREN Signed 04-Oct-2016 6 Minute Walk Test Result: Comments: See Note; NOTES: [facility] Pulmonary Services/Neurology [address] [place] [address] MR#: [id number] Acct: [id number] Name: JANIS ZAPATA Rep #: [id number] : 1970 46 From: Say Rosa MD Referring Dr: Jeremias Gonsalez D.O. Date: Ordering Dr: Sex: F C Location: PSN PSN 6 Minute Walk Test - 6 Minute Walk Test 6 Minute Walk Test: 6 Minute Walk Test PSN :6-Minute Walk Test Start: 10/04/16 12:48 Freq: Status: Active Document 10/04/16 12:48 DWP (Rec: 10/04/16 12:56 DWP [id number]) 6 Minute Walk Test Date Performed 10/04/16 [...] a cardiac evaluation if not completed previously 10/04/16 1808 &am p;#60;Electronically signed by Say Rosa MD> Date Say Rosa MD CC: Date Dictated: 10/04/161806 Date Transcribed: 10/04/161806 Pca: Say Rosa Signed 17-Sep-2016 Chest 1 View Result: Comments: See Note; NOTES: [facility] Imaging Services [address] [place] [address] Verdana 4d Chest 1 View MR#: [id number] Acct: [id number] Name: JANIS ZAPATA Rep #: [id number] : 1970 F 46 From: Fabrizio Meade MD PCP: Naomi Colunga DO Status: REG CLI Study: Chest 1 View Date of Exam: 09/17/16 Exam# [id number] Ordering Dr: Fabrizio Meade MD STUDY: X-RAY [...] CC: Fabrizio Meade MD; Naomi Colunga DO Pca: Signed 17-Sep-2016 Biopsy/Inj or Needle Placement Result: Comments: See Note; NOTES: [facility] Imaging Services [address] [place] [address] Verdana 4d Biopsy/Inj or Needle Placement MR#: [id number] Acct: [id number] Name: FREDY ZAPATA Rep #: [id number] : 1970 F 46 From: Fabrizio Meade MD PCP: Naomi Colunga DO Status: REG CLI Study: Biopsy/Inj or Needle Placement Date of Exam: 09/17/16 Exam# [id number] Ordering Dr: Ximena Slater MD PROCEDURE: CT-GUIDED [...] CC: Vibha Larson M.D.; Naomi Colunga DO Pca: Signed 31-Aug-2016 Chest PA and Lateral Result: Comments: See Note; NOTES: [facility] Imaging Services [address] [place] [address] Verdana 4d Chest PA and Lateral MR#: [id number] Acct: [id number] Name: JANIS ZAPATA Rep #: [id number] : 1970 F 46 From: Jesús Mcconnell MD PCP: Naomi Colunga DO Status: REG ER Study: Chest PA and Lateral Date of Exam: 08/31/16 Exam# [id number] Ordering Dr: Fatimah Rene STUDY: X- RAY [...] , CC: Fatimah Rene; Naomi Colunga DO Pca: Signed 29-Aug-2016 Operative Report Result: Comments: See Note; NOTES: [facility] Medical Records Department [address] [place] [address] Operative Report MR#: [id number] Acct: [id number] Name: JANIS ZAPATA Rep #: [id number] : 1970 46 From: Harry Gagnon MD PCP: Naomi Colunga DO Status: [facility] DATE OF SERVICE: 08/05/2016 DATE OF PROCEDURE: [...] indicated. Harry Gagnon MD T: NTS JOB: [id number] 08/29/16 1633 <Electronically signed by Harry Gagnon MD> Date ___ Harry Gagnon MD Cosigner Signature (If Indicated): Date CC: Harry Gagnon; Naomi Colunga DO Date Dictated: 08/05/16 1204 Date Trans cribed: 08/05/16 120 Pca: Signed 15-Aug-2016 PT D/C Summary (1) Result: Comments: See Note; NOTES: [facility] Physical Therapy [facility] [address] [place], [place] [address] Fax REHABILITATION SERVICES SUNDAR JONES SUMMARY MR#: [id number] Acct: [id number] Name: JANIS ZAPATA Rep #: [id number] : 1970 46 From: Marguerite Haq DPT Referring DrYaneth: Leticia Bernard DO Status: REG RCR Insurance: [employer] HP - PT D/C Summary [...] please feel free to call me at [phone]. Thank you for the referral of this patient. Sincerely, Marguerite Haq <Electronically signed by Marguerite Haq DPT> 08/15/16 1053 CC: Leticia Bernard DO; Naomi Colunga DO ELR Signed 05-Aug-2016 OR-Steroi/Epid Inj/Lum Sac/ Result: Comments: See Note; NOTES: [facility] Imaging Services [address] [place] [address] Verdana 4d OR-Steroi/Epid Inj/Lum Sac/1st MR#: [id number] Acct: [id number] Name: FREDY ZAPATA Rep #: [id number] : 1970 F 46 From: Matt Beckwith MD PCP: Naomi Colunga DO Status: [facility] Study: OR-Steroi/Epid Inj/Lum Sac/1st Date of Exam: 08/05/16 Exam# [id number] Ordering Dr : Harry Gagnon MD PROCEDURE: Caudal block. DATE OF EXAMINATION: August 05, 2016. INDICATION: Female, 46 years old. A caudal block was performed by the pain management physician. RAD/OR-Steroi/Epid Inj/Lum Sac/1st IMPRESSION: Fluoroscopic services provided for caudal block. Electronically Signed: Matt Beckwith MD at 15:16 EDT Tel [phone], Service support , CC: Harry Gagnon; Naomi Colunga DO Pca: Signed 25-Jul-2016 Re-Evaluation - PT (1) Result: Comments: See Note; NOTES: [facility] Physical Therapy [facility] [address] [place] [address]. [address] [place] [address] Fax REEVALUATION / MEDICARE [facility] Karla 4d PHYSICAL THERAPY MR#: [id number] Acct: [id number] Name: JANIS ZAPATA Rep #: [id number] : 1970 46 From: Marguerite Haq DPT Referring DrYaneth: Leticia Bernard DO Status: REG RCR Ins urance: [facility] Leticia Bernard DO, It has [...] she is waiting for a phone call. [employer] the knee/hip injections helped. Feels that the [...] do not hesitate to contact me at [phone] by phone or if you have questions or concerns regarding this new plan of care! Sincerely, Marguerite Haq <Electronically signed by Marguerite Haq DPT> 07/25/16 1609 CC: Leticia Bernard DO; Naomi Colunga DO ELR Signed For Medicare only, by signing this I certify the plan of care. Physicians Signature Date 15-Jul-2016 L/S Spine Min 4 Views Result: Comments: See Note; NOTES: [facility] Imaging Services [address] [place], [place] [address] [place] [address] Ibeth 4d L/S Spine Min 4 Views MR#: [id number] Acct: [id number] Name: JANIS ZAPATA p #: [id number] : 1970 F 46 From: Aaron Glasgow MD PCP: Naomi Colunga DO Status: REG CLI Study: L/S Spine Min 4 Views Date of Exam: 07/15/16 Exam# [id number] Ordering Dr: Daniella Sharp STUDY: X-RAY - [...] at 12:48 EDT Tel , Service support [phone], CC: Carlotta Sharp; Naomi Colunga DO Pca: Signed 24-Jun-2016 Knee 4 or More Views Result: Comments: See Note; NOTES: [facility] Imaging Services [address] [place] [address] Verdana 4d Knee 4 or More Views MR#: [id number] Acct: [id number] Name: JANIS ZAPATA Rep # : [id number] : 1970 F 45 From: Jesús Mcconnell MD PCP: Naomi Colunga DO Status: REG RCR Study: Knee 4 or More Views Date of Exam: 06/24/16 Exam# [id number] Ordering Dr: Carlotta Sharp STUD Y: X-RAY [...] at 3:27 EDT Tel , Service support [phone], CC: Carlotta Sharp; Naomi Colunga DO Pca: Signed 24-Jun-2016 Knee 4 or More Views Result: Comments: See Note; NOTES: [facility] Imaging Services [address] [place] [address] Verdana 4d Knee 4 or More Views MR#: [id number] Acct: [id number] Name: JANIS ZAPATA Rep # : [id number] : 1970 F 45 From: Jesús Mcconnell MD PCP: Naomi Colunga DO Status: [facility] RCR Study: Knee 4 or More Views Date of Exam: 06/24/16 Exam# [id number] Ordering Dr: Carlotta Sharp STUD Y: X-RAY [...] at 3:30 EDT Tel , Service support [phone], CC: Carlotta Sharp; Naomi Colunga DO Pca: Signed 04-Jun-2016 Inital Evaluation (1) - PT Result: Comments: See Note; NOTES: [facility] Physical Therapy [facility] [address] [place] [address]. [address] [place] [address] Fax REHABILITATION SERVICES INITIAL EVALUATION MR#: [id number] Acct: [id number] Name: JANIS ZAPATA Rep #: [id number] : 1970 45 From: Marguerite Haq DPT Referring DrYaneth: Carlotta Sharp Status: [facility] Insurance: [facility] Patient's Visit Information JANIS ZAPATA is a [...] up 5-6x a night. Left hip- Worst: 8/10 Agg: night time, getting in/out of the car, up/down out of chairs. Best: 3/10 Eases: sitting down. Pain is described as [...] to be FAXED BACK to us at [phone] for Medicare purposes. Please let me know if there are questions or concerns regarding this plan of care. Physician Signature: Date: <Electronically signed by Marguerite Haq DPQuinn> 06/04/16 1557 CC: Carlotta Kirkland ; Naomi Colunga DO ELR Signed For Medicare only, by signing this I certify the plan of care. Physicians Signature Date 04-Jun-2016 Thyroid Result: Comments: See Note; NOTES: [facility] Imaging Services [address] [place] [address] Verdana 4d Thyroid MR#: [id number] Acct: [id number] Name: JANIS ZAPATA Rep #: [id number] D OB: 1970 F 45 From: Shaggy Jean DO PCP: Naomi Colunga DO Status: REG CLI Study: Thyroid Date of Exam: 06/04/16 Exam# [id number] Ordering Dr: Naomi Colunga DO STUDY: THYROID [...] Jean DO at 20:11 EST Tel , Priscilla eagle support [phone], CC: Naomi Colunga DO Pca: Signed 27-May-2016 Operative Report Result: Comments: See Note; NOTES: [facility] Medical Records Department [address] [place] [address] Operative Report MR#: [id number] Acct: [id number] Name: JANIS ZAPATA Rep #: [id number] : 1970 45 From: Harry Gagnon MD PCP: Naomi Colunga DO Status: [facility] DATE OF SERVICE: 05/13/2016 DATE OF SERVICE: [...] indicated. Harry Gagnon MD T: NTS JOB: [id number] 05/27/16 1356 <Electronically signed by Harry Gagnon MD> Date __ Harry Gagnon MD Cosigner Signature (If Indicated): Date CC: Harry Ames Date Dictated: 05/13/161117 Date Transcribed: 05/13/161117 Pca: Signed 13-May-2016 Inj/Asp Aakash Jt Should/Hip/Knee Result: Comments: See Note; NOTES: [facility] Imaging Services [address] [place] [address] Verdana 4d Inj/Asp Aakash Jt Should/Hip/Knee MR#: [id number] Acct: [id number] Name: FREDY ZAPTAA Rep #: [id number] : 1970 F 45 From: Matt Beckwith MD PCP: Naomi Colunga DO Status: [facility] Study: Inj/Asp Aakash Jt Should/Hip/Knee Date of Exam: 05/13/16 Exam# [id number] Ordering Dr: Harry Gagnon MD STUDY: INJECTION [...] Matt Beckwith MD at 13:45 EST Tel [phone], Service support [phone], Fax CC: Harry Gagnon; Naomi Colunga DO Pca: Signed Family History Unknown Family Member Name [...] Active Vital Signs Date Test Result Details :04 Pulse 115 /min Comments: Pattern: Regular Respiration Rate 18 /min Comments: Pattern: Unlabored O2 SAT 97 % Comments: Room air BP Systolic 160 mm[Hg] Comments: Patient Position: Sitting; Cuff Location: Left Arm; Cuff Size: Standard BP Diastolic 84 mm[Hg] Comments: Patient Position: Sitting; Cuff Location: Left Arm; Cuff Size: Standard Weight 357 lb Height 64 in Body Mass Index Calculated 61.28 kg/m2 Body Surface Area Calculated 2.5 m2 :00 Temperature 98 f Comments: Method: Oral Pulse [...] kg/m2 Body Surface Area Calculated 2.5 m2 1-Yrk-974725:26 Temperature 97.2 f Comments: Method: Temporal Pulse [...] kg/m2 Body Surface Area Calculated 2.4 m2 :00 Pulse 107 /min Comments: Pattern: Regular Respiration [...] 2.46 m2 Results Date Description Value Details :27 Rapid Flu (88554 x 2) Influenza A Ag negative (Normal) :26 Aerobic Bacterial Culture Comments: R arm; PATIENT NOT FASTINGPERFORMED BY: [facility] [facility] [id number] Information: RIGHT ARM SRC:AR (88660) Antimicrobial MIHEAD (Normal) Comments: S = Susceptible; [...] Meropenem Aerobic Bacterial Final report (Abnormal) Culture 1-Uct-411696:25 Aerobic Bacterial Culture Comments: L leg; PATIENT NOT FASTINGPERFORMED BY: [facility] [facility] [id number] Information: LEFT LEG SRC:FL (07102) Antimicrobial MIHEAD (Normal) Comments: S = Susceptible; [...] U/L (Abnormal) Comments: PATIENT NOT FASTINGPERFORMED BY: [employer] [facility] [id number] 23566:17 Range: 31-124 Lipase 34 U/L (Normal) Comments: PATIENT NOT FASTINGPERFORMED BY: [employer] Uvzxiz0741 [facility] [id number] 07320:17 Range: 14-72 Written Authorization WAR (Normal) Comments: PATIENT NOT FASTINGPERFORMED BY: [employer] Fufihx6005 [facility] [id number] 61558:17 Comments: Written Authorization Received.Authorization received from REJI SOMERS [id number] by Violet Gong 00-Kav-855971:17 C-REACTIVE PROTEIN (62158) Comments: PATIENT NOT FASTINGPERFORMED BY: [employer] Wwqwji5879 [facility] [id number] C-Reactive Protein, Quant 17.9 mg/L (Abnormal) Range: 0.0-4.9 55-Mnf-943851:17 SED RATE ERYTHROCYTE (66397) Comments: PATIENT NOT FASTINGPERFORMED BY: [facility] [facility] [id number] Sedimentation Rate-Westergren 77 mm/h (Abnormal) Range: 0-32 26-Kmv-888598:17 CBC W/AUTO DIFF WBC (75603) Comments: PATIENT NOT FASTINGPERFORMED BY: [facility] [facility] [id number] Immature Grans (Abs) 0.0 {x10E3/uL} (Normal) Range: [...] 3.77-5.28 WBC 11.1 {x10E3/uL} (Abnormal) Range: 3.4-10.8 73-Afu-281932:17 METABOLIC PANEL, COMPREHENSIVE Comments: PATIENT NOT FASTINGPERFORMED BY: [facility] [facility] [id number] (10352) ALT (SGPT) 35 [iU]/L (Abnormal) Range: 0-32 [...] 6-24 Glucose 124 mg/dL (Abnormal) Range: 65-99 09-Dmw-898581:45 CBC-Complete Blood Cnt No Diff Comments: [facility] [address] [place], [place], [address] MPV 10.5 fL (Normal) Range: 6.2-12.0 PLT [...] 4.2-5.4 WBC 11.0 K/mm3 (Normal) Range: 4.4-11.0 65-Knz-101079:45 Protein+Creatinine Ratio,Urine Comments: [facility] [address] [place], [address] PROT:CRE RATIO 2991 {mg/g_CRE} (Abnormal) Range: 0-200 PROTEIN,UR.RAN. 193.2 mg/dL (Abnormal) UR CREAT 64.60 mg/dL (Normal) 30-Dmm-686276:45 PTHIN 38.7 pg/mL (Normal) Comments: [facility] [address] [place], [address] Range: 18.4-80.1 88-Auz-548539:45 Renal Profile Comments: [facility] [address] [place], [address] CO2 25.0 mmol/L (Normal) Range: 21.0-32.0 CL [...] A.D.A. criteria.Please note revised GLUCOSE reference range cstvfuixb41/02/2018. 08-Hqe-917905:45 Vitamin D,25 Hydroxy Comments: [facility] [address]ear[address]swqs[address] [place], [id number] Vitamin D 25-OH 36.6 ng/mL (Normal) Range: 29.95-100.01 Comments: Vitamin D 25(OH) Status Range Deficiency <20 ng/mL (50nmol/L) Insuffciency 20 - 30 ng/mL (50 - 75 nmol/L) Sufficiency 30 - 100 ng/mL (75 - 250 nmol/L) Toxicity >100 ng/mL (>250 nmol/L) 6-Iew-823693:17 Hemoglobin A1c Comments: [facility] [address]fr[address] [place], [address] HGB A1C 6.4 % (Abnormal) Range: 4.2-6.3 7-Aam-073439:11 CBC-Complete Blood Cnt No Diff Comments: [facility] [address] [place], [address] MPV 10.1 fL (Normal) Range: 6.2-12.0 [...] 4.2-5.4 WBC 8.1 K/mm3 (Normal) Range: 4.4-11.0 9-Sjo-882594:11 Protein+Creatinine Ratio,Urine Comments: [facility] [address] [place], [address] PROT:CRE RATIO 1973 {mg/g_CRE} (Abnormal) Range: 0-200 PROTEIN,UR.RAN. 133.6 mg/dL (Abnormal) UR CREAT 67.70 mg/dL (Normal) 6-Oxw-762240:11 PTHIN 22.2 pg/mL (Normal) Comments: [facility] [address] [place], [address] Range: 18.4-80.1 8-Bze-055881:11 Renal Profile Comments: [facility] [address] [place], [address] CO2 24.0 mmol/L (Normal) Range: 21.0-32.0 [...] criteria.Please note revised GLUCOSE reference range /02/2018. 4-Baa-364581:11 Vitamin D,25 Hydroxy Comments: [facility] [address] [place], [address] Vitamin D 25-OH 42.2 ng/mL (Normal) Range: 29.95-100.01 Comments: Vitamin D 25(OH) Status Range Deficiency <20 ng/mL (50nmol/L) Insuffciency 20 - 30 ng/mL (50 - 75 nmol/L) Sufficiency 30 - 100 ng/mL (75 - 250 nmol/L) Toxicity >100 ng/mL (>250 nmol/L) 21-Jvi-982503:20 Urinalysis, Complete Comments: Order Date: 10/20/17Has pt arrived? YHow was Urine Obtained? [facility] Jitxispyyb9613 [facility] [address] [place], [place], [id number] MUCUS, URINE 0 SEEN {/hpf} (Normal) BACTERIA [...] (Normal) CLARITY Clear (Normal) COLOR Yellow (Normal) 31-Peh-371977:20 CBC W/Diff, Automated Comments: [facility] Wrrhaxziog1402 [facility] [address] [place], [place], [address] Absolute Lymph 2.39 {X10_3/ul} (Normal) Range: 0.83-4.51 [...] 4.2-5.4 WBC 7.0 K/mm3 (Normal) Range: 4.4-11.0 83-Rlx-556925:20 Comprehensive Metabolic Profil Comments: [facility] [address] [place], [address] GAP 10 (Normal) Range: 5-15 CO2 25.0 [...] A.D.A. criteria.Please note revised GLUCOSE reference range hlpqmpele07/02/2018. 5-Hzh-269621:52 Culture, Urine Comments: [facility] [address] [place], [address] CUUR See Note (Normal) Comments: Urine CultureORGANISM [...] $ <=20 S(NF) indicates non-formulary drug at [facility]. Approval by Infectious Disease Specialist required before non-formulary drugs may be ordered and/or dispensed. 77-Vei-329768:38 CBC-Complete Blood Cnt No Diff Comments: [facility] [address] [place], [place], [address] MPV 10.3 fL (Normal) Range: 6.2-12.0 PLT [...] 4.2-5.4 WBC 7.7 K/mm3 (Normal) Range: 4.4-11.0 :38 Protein+Creatinine Ratio,Urine Comments: [facility] [address] [place], [place], [address] PROT:CRE RATIO 2487 {mg/g_CRE} (Abnormal) Range: 0-200 PROTEIN,UR.RAN. 318.3 mg/dL (Abnormal) UR CREAT 128.00 mg/dL (Normal) 32-Htp-019642:38 PTHIN 32.3 pg/mL (Normal) Comments: [facility] [address] [place], [place], [address] Range: 18.4-80.1 06-Mfq-182881:38 Renal Profile Comments: [facility] Dzwevgltbz7278 [facility] [address] [place], [place], [address] CO2 24.0 mmol/L (Normal) Range: 21.0-32.0 CL [...] A.D.A. criteria.Please note revised GLUCOSE reference range ccuyyuqyc83/02/2018. 80-Cih-273924:38 Vitamin D,25 Hydroxy Comments: [facility] [address] [place], [address] Vitamin D 25-OH 38.5 ng/mL (Normal) Range: 29.95-100.01 Comments: Vitamin D 25(OH) Status Range Deficiency <20 ng/mL (50nmol/L) Insuffciency 20 - 30 ng/mL (50 - 75 nmol/L) Sufficiency 30 - 100 ng/mL (75 - 250 nmol/L) Toxicity >100 ng/mL (>250 nmol/L) 48-Ygh-993963:35 Comprehensive Metabolic Profil Comments: [facility] [address]xestztfw[address] [place], [address] GAP 9 (Normal) Range: 5-15 CO2 26.0 [...] A.D.A. criteria.Please note revised GLUCOSE reference range ongiwmidf49/02/2018. 07-Jul-20179:31 Bedside Glucose Comments: [facility] [address]ik[address] [place], [place] [address] BEDSIDE GLU 133 mg/dL (Abnormal) Range: 70-110 Comments: MANAGEMENT OF PATIENT CARE PER NURSING PROTOCOL 47-Mas-938698:01 HGB A1C (20894) Comments: PATIENT WAS FASTINGPERFORMED BY: [facility] Wngync7449 [facility] [id number] Hemoglobin A1c 6.2 % (Abnormal) Range: 4.8-5.6 Comments: . Pre-diabetes: 5.7 - 6.4 Diabetes: >6.4 Glycemic control for adults with diabetes: <7.0 95-Scv-403041:00 Basic Metabolic Profile (BMP) Comments: [facility] [address]qi[address] [place], [address] GAP 10 (Normal) Range: 5-15 CO2 22.0 mmol/L (Normal) Range: 21.0-32.0 CL 110 mmol/L (Abnormal) Range: 98-107 K 2.7 mmol/L (Abnormal) Range: 3.5-5.1 NA 142 mmol/L (Normal) Range: 136-145 Comments: Critical Result(s) Called at: 18:00:26 06/20/2017 by:Kenyon Christian to oli CA 8.6 mg/dL (Normal) Range: 8.5-10.1 BUN/CRE [...] A.D.A. criteria.Please note revised GLUCOSE reference range mqgaxvoba87/02/2018. 47-Yav-778770:00 CBC W/Diff, Automated Comments: [facility] [address] [place], [address] SMEAR COMMENT SCANNED (Normal) Absolute Lymph 4.73 [...] 4.2-5.4 WBC 11.2 K/mm3 (Abnormal) Range: 4.4-11.0 61-Kul-858499:00 Urinalysis, Complete Comments: Order Date: 06/20/17Has pt arrived? YHow was Urine Obtained? [facility] Rxmxacuxhq9643 [facility] [place], [place], [id number] MUCUS, URINE 0 SEEN {/hpf} (Normal) BACTERIA [...] CLARITY Sl. Cloudy (Normal) COLOR Yellow (Normal) 14-Pbw-18530:33 Influenza A&B Viral Comments: PATIENT NOT FASTINGPERFORMED BY: [facility] Fzcowb4847 [facility] [id number] Information: SRC:NL Culture (79923) Viral Culture,Rapid,Influenza FLUABN (Normal) Comments: Negative:No Influenza A or B detected. 61-Jnu-781025:38 Blood Glucose , Office (58904) Blood Glucose , Office 123 (Normal) 04-Bwz-982770:04 Basic Metabolic Profile (BMP) Comments: [facility] [address] [place], [address] GAP 10 (Normal) Range: 5-15 CO2 24.0 [...] A.D.A. criteria.Please note revised GLUCOSE reference range putixoveb68/02/2018. 76-Hqy-133907:04 Microalb:Creat Ratio,Random UR Comments: [facility] [address]pgjl[address] [place], [place], [address] MALB:CREAT 2009.4 {mg/g_CRE} (Abnormal) MICROALBUMIN,UR 2150.0 mg/L (Normal) UR CREAT 107.00 mg/dL (Normal) 33-Icq-966201:08 Basic Metabolic Profile (BMP) Comments: [facility] [address]hfo[address] [place], [address] GAP 7 (Normal) Range: 5-15 CO2 26.0 [...] 7-18 GLU 92 mg/dL (Normal) Range: 70-110 00-Qsk-788046:08 CBC W/Diff, Automated Comments: [facility] [address] [place], [address] Absolute Lymph 2.98 {X10_3/ul} (Normal) Range: 0.83-4.51 [...] 4.2-5.4 WBC 8.3 K/mm3 (Normal) Range: 4.4-11.0 84-Vyl-021391:08 CPK Total, Creatine Kinase Comments: [facility] [address] [place], [address] CPK TOTAL 79 U/L (Normal) Range: 26-192 89-[id number] URINE BEULAH CULTURE-IDENTIFICATN Comments: PATIENT NOT FASTINGPERFORMED BY: [facility] [id number] [facility] [id number] Information: SRC:ALEISHA ([id number]) Result 2 BETAGB (Abnormal) Comments: Beta hemolytic [...] (Abnormal) Urine Final report (Abnormal) Culture,Comprehenssolis hines [id number] Urinalysis, Office ([id number]) UA - LEUKOCYTE ESTERASE Negative (Normal) UA - NITRITE Negative (Normal) URINE UROBILINGN GENNA TIMED Normal mg/dL (Normal) UA - PROTEIN 300 mg/dL (Normal) UA - PH 7.5 (Normal) UA - BLOOD Non Hemolyzed Moderate (Normal) UA - SPECIFIC GRAVITY 1.025 (Normal) UA - KETONES Negative mg/dL (Normal) UA - BILIRUBIN Negative (Normal) UA - GLUCOSE Negative (Normal) 80-Rfq-722683:24 TSH (68294) Comments: PATIENT WAS FASTINGPERFORMED BY: [facility] Tvhmzn8234 [facility] [id number] TSH 1.790 {uIU/mL} (Normal) Range: 0.450-4.500 57-Ykf-834585:24 METABOLIC PANEL, COMPREHENSIVE Comments: PATIENT WAS FASTINGPERFORMED BY: ROCKETHOME6370 [facility] [id number] (19365) ALT (SGPT) 37 [iU]/L (Abnormal) Range: 0-32 [...] Glucose, Serum 99 mg/dL (Normal) Range: 65-99 32-Yuy-684468:24 CBC W/AUTO DIFF WBC (21169) Comments: PATIENT WAS FASTINGPERFORMED BY: [facility] SomersetVktasf5936 [facility] [id number] Immature Grans (Abs) 0.0 {x10E3/uL} (Normal) Range: [...] 3.77-5.28 WBC 9.4 {x10E3/uL} (Normal) Range: 3.4-10.8 55-Rnx-515876:24 LIPID PANEL (44445) Comments: PATIENT WAS FASTINGPERFORMED BY: [facility]CoRobert [facility] SomersetXbuhge0106 [facility] [id number] LDL/HDL Ratio 1.8 {ratio_units} (Normal) Range: 0.0-3.2 Comments: LDL/HDL Ratio Men Women 1/2 Avg.Risk 1.0 1.5 Av g.Risk 3.6 3.2 2X Avg.Risk 6.2 5.0 3X Avg.Risk 8.0 6.1 LDL Cholesterol Calc 75 mg/dL (Normal) Range: 0-99 VLDL Cholesterol Juliocesar 52 mg/dL (Abnormal) Range: 5-40 HDL Cholesterol 42 mg/dL (Normal) Triglycerides 258 mg/dL (Abnormal) Range: 0-149 Cholesterol, Total 169 mg/dL (Normal) Range: 100-199 50-Ubp-631092:24 CALCIFEDIOL (67381) Comments: PATIENT WAS FASTINGPERFORMED BY: [facility]CoRobert [facility] SomersetWjnxeo2149 [facility] [id number] Vitamin D, 25-Hydroxy 44.2 ng/mL (Normal) Range: 30.0-100.0 Comments: Vitamin D deficiency has been defined by the [place] [facility] [facility] Cent[facility]ine and an Endocrine Society practice guideline as alevel of serum 25-OH vitamin D less than 20 ng/mL (1,2).The Endocrine Society went on to further define vitamin Dinsufficiency as a level between 21 and 29 ng/mL (2).1. IOM ([place] of Medicine). 2010. Dietary reference intakes for calcium and D. [place]: The National Academies Press.2. Miles MF, Tri MITCHELL, Juan Francisco SHEETS, et al. Evaluation, treatment, and prevention of vitamin D deficiency: an Endocrine Society clinical practice guideline. JCEM. 2010; 96(7):1911-30. 26-Wgl-228784:15 HgA1C , Office (75252) HgA1C , Office 6.0 % (Normal) Range: 4.6 - 7.1 :15 Blood Glucose , Office (65261) Blood Glucose , Office 103 (Normal) :45 Bedside Glucose Comments: [facility] Laboratory[facility] Ztrn[address] [place] [address] BEDSIDE GLU 134 mg/dL (Abnormal) Range: 70-110 Comments: MANAGEMENT OF PATIENT CARE PER NURSING PROTOCOL 31-Lnl-790970:04 ANCA Comments: Is Patient Fasting? [facility] (refer [...] up testing of positive sera with both KY-3 and MPO- ANCA enzyme immunoassays. As many as 5% serumsamp les are positive only by EIA. Ref. AM J Clin Vodklh6005;111:507-513. CYTOPLASMIC Ab <1:20 {titer} (Normal) 13-Npx-146745:04 Anti-dsDNA Ab Comments: [facility] (refer to report for specific site)refer to report for address and phone number dsDNA AB <1 {IU/mL} (Normal) Range: 0-9 Comments: Negative <5 Equivocal 5 - 9 Positive >9Performed at: - [facility] [address] [id number] D irector: Jonathan Khan PhD, Phone: [phone] 74-Phd-733213:04 Basic Metabolic Profile (BMP) Comments: PLEASE ADD BMP TO BLOOD FROM [facility] Zvclmhxapm[address] [place], [address] GAP 8 (Normal) Range: 5-15 CO2 25.0 [...] 126 mg/dLsuggests DIABETES MELLITUS per A.D.A. criteria. 33-Dug-212782:04 CBC W/Diff, Automated Comments: [facility] Dolgevtqhm[address] [place], [address] Absolute Lymph 2.35 {X10_3/ul} (Normal) Range: 0.83-4.51 [...] 4.2-5.4 WBC 10.2 K/mm3 (Normal) Range: 4.4-11.0 21-Afc-797278:04 Complement C3 Comments: Is Patient Fasting? [facility] (refer to report for specific site)refer to report for address and phone number COMP C3 187 mg/dL (Abnormal) Range: 82-167 Comments: Performed at: [facility] [address] [id number] Director: Jonathan Khan PhD, Phone: [phone] 80-Btz-956804:04 Complement C4 Comments: Is Patient Fasting? [facility] (refer to report for specific site)refer to report for address and phone number COMP C4 24 mg/dL (Normal) Range: 14-44 17-Weg-710866:04 SHAYLEE + Protein Elect, Serum Comments: Is Patient Fasting? [facility] (refer to report for specific site)refer to report for address and phone number NOTE: Comment (Normal) Comments: Protein electrophoresis scan will follow via computer,mail, or field marketing lead delivery. SHAYLEE RESULT,S Comment (Normal) Comments: No monoclonality detected. A/G RATIO 1.1 (Normal) Range: 0.7-1.7 GLOBULIN, TOTAL 2.9 g/dL (Normal) Range: 2.2-3.9 M-SPIKE g/dL (Normal) Comments: Not Observed GAMMA GLOBULIN 0.7 g/dL (Normal) Range: 0.4-1.8 BETA GLOBULIN 1.0 g/dL (Normal) Range: 0.7-1.3 NMLSU-1-UOFN 1.0 g/dL (Normal) Range: 0.4-1.0 UYXOS-1-TEUO 0.2 g/dL (Normal) Range: 0.0-0.4 ALBUMIN 3.1 g/dL (Normal) Range: 2.9-4.4 IMMUNOGL M 94 mg/dL (Normal) Range: 26-217 IMMUNO A 204 mg/dL (Normal) Range: 87-352 IMMUNO G 703 mg/dL (Normal) Range: 700-1600 PROTEIN,TOTAL 6.0 g/dL (Normal) Range: 6.0-8.5 24-Jkd-455252:04 Partial Thromboplast Time Comments: [facility] Tejgxismlg[address] [place], [place], [id number] PTT 23.1 s (Abnormal) Range: 24.1-36.2 51-Quz-721674:04 Protein+Creatinine Ratio,Urine Comments: [facility] Psrudqaman0574 [address] [place] [place], [address] PROT:CRE RATIO 1806 {mg/g_CRE} (Abnormal) Range: 0-200 PROTEIN,UR.RAN. 209.5 mg/dL (Abnormal) UR CREAT 116.00 mg/dL (Normal) 44-Osq-941091:04 Prothrombin Time w/INR Comments: [facility] Wjgatnclbz84[address] [place], [address] INR 1.0 (Normal) PROTIME 12.7 s (Normal) Range: 11.7-14.9 70-Rva-900712:00 Basic Metabolic Profile (BMP) Comments: [facility] Cmrpyrwosz4810 [address] [place], [id number] GAP 9 (Normal) Range: 5-15 CO2 24.0 [...] 126 mg/dLsuggests DIABETES MELLITUS per A.D.A. criteria. 01-Khy-226830:00 Magnesium Comments: [facility] Kjwwqitblc55[address] [place], [id number] MG 2.0 mg/dL (Normal) Range: 1.8-2.4 95-Qlk-101690:47 HGB A1C (33933) Comments: PATIENT NOT FASTINGPERFORMED BY: [facility] Osautj3485 [place] [id number] Hemoglobin A1c 6.2 % (Abnormal) Range: 4.8-5.6 Comments: . Pre-diabetes: 5.7 - 6.4 Diabetes: >6.4 Glycemic control for adults with diabetes: <7.0 53-Vvi-747318:54 Basic Metabolic Profile (BMP) Comments: [facility] Mstetxrbqv03[address] [place], [address] GAP 7 (Normal) Range: 5-15 CO2 24.0 [...] 126 mg/dLsuggests DIABETES MELLITUS per A.D.A. criteria. 03-Pyc-818349:54 Microalb:Creat Ratio,Random UR Comments: [facility] [address] [place], [address] MALB:CREAT 3622.4 {mg/g_CRE} (Abnormal) MICROALBUMIN,UR 1880.0 mg/L (Normal) UR CREAT 51.90 mg/dL (Normal) 02-Rey-658499:30 CDIFF (Molecular) Comments: [facility] Ttroncwqco16[address] [place], [address] CDIFF See Note (Normal) Comments: Cdiff-MolecularNormal Reference Range = Negative C. Diff DNA Negative- No toxigenic C. Diff DNA DetectedNAAT METHOD Testing was performed using nucleic acid amplification 7-Zrm-807601:47 Bedside Glucose Comments: [facility] of Yslr7989 [place] [address] BEDSIDE GLU 124 mg/dL (Abnormal) Range: 70-110 Comments: MANAGEMENT OF PATIENT CARE PER NURSING PROTOCOL 9-Dcv-458814:39 Partial Thromboplast Time Comments: [place] [address] [place], [address] PTT 25.9 s (Normal) Range: 24.1-36.2 :39 Prothrombin Time w/INR Comments: [place] [address] [place], [address] INR 1.1 (Normal) PROTIME 14.2 s (Normal) Range: 11.7-14.9 3-Hqn-131352:23 Basic Metabolic Profile (BMP) Comments: [place] [address] [place], [address] GAP 8 (Normal) Range: 5-15 CO2 23.0 [...] 126 mg/dLsuggests DIABETES MELLITUS per A.D.A. criteria. 1-Hkh-266040:23 Lactic Acid Comments: [facility] Qljtdythrl1621 [place], [address] LACTIC ACID 1.4 mmol/L (Normal) Range: 0.4-2.0 : KIDNEY BIOPSY See Note (Normal) Comments: [facility] Yrdrmziquv4060 [place], [address] 20 Comments: Patient: JANIS ZAPATA : 1970 (46/F) Acct Num: [id number] Phys: Vibha Larson M.D. Unit Num: [id number] Loc: CT Specimen: [id number] Received: 09/17/16 - 1040 Spec Ty pe: [...] DESCRIPTION The specimen is sent entirely to [facility] for diagnosis. The specimen is received in [facility] and consists of three cores of tanrenal [...] singleglo merulus with segmental glomerulitis. Signed Magen [facility] 09/23/16 <signature on file> 61-Dqb-016170:21 D-Dimer Quantitative (DVT/PE) Comments: [facility] Ybeujifopd4[address] [place], [address] D-DIMER QUANT 0.35 {FEU/ug/m} (Normal) Range: 0.27-0.49 Comments: NORMAL D-Dimer level (<0.50) indicates no DVT or PE. 97-Cuz-765412:33 Basic Metabolic Profile (BMP) Comments: 'TROP' Serial specimen #1, #2, #3, or #4: [facility] Xuzlhrykis46[address] [place], [place], [id number] GAP 11 (Normal) Range: 5-15 CO2 26.0 [...] 126 mg/dLsuggests DIABETES MELLITUS per A.D.A. criteria. 71-Ocx-368195:33 CBC W/Diff, Automated Comments: [facility] Critaombbo2948 [place], [address] Absolute Lymph 2.32 {X10_3/ul} (Normal) Range: 0.83-4.51 [...] 4.2-5.4 WBC 10.3 K/mm3 (Normal) Range: 4.4-11.0 42-Kjq-482749:33 Troponin-I Comments: 'TROP' Serial specimen #1, #2, #3, or #4: [address] [place] [address] [place], [address](350) TROPONIN-I < 0.02 ng/mL (Normal) Comments: TROPONIN-I EXPECTED VALUES <0.05 NEGATIVE 0.06 - 0.59 AT RISK OF [place] > OR = 0.60 SUGGEST MN :00 Creatinine, Urine (random) Comments: [address], [address](213) UR CREAT 91.10 mg/dL (Normal) 34-Fvz-21676:00 Microalbumin,Random Urine Comments: [address], [address](525) MICROALBUMIN,UR 5320.0 mg/L (Normal) 77-Arw-91083:00 Protein, Urine (Random) Comments: [address], [address](172) PROTEIN,UR.RAN. 689.0 mg/dL (Abnormal) 41-Olv-30925:00 Urinalysis, Routine (Dipstick) Comments: How was Urine Obtained? CLEAN [facility] Sxxwgmhlcr1884 [place], [address] LEUK ESTERASE 25 /ul (Abnormal) OCCULT BLOOD-UR 150 /ul (Abnormal) NITRITE UR Negative (Normal) UROBILI Normal mg/dL (Normal) PROT DIPSTX 500 mg/dL (Abnormal) pH UR 8.0 (Normal) Range: 5.0 - 8.0 SP.GR. DIPSTX 1.015 (Normal) Range: 1.002-1.030 KETONE UR Negative mg/dL (Normal) BILIRUBIN URINE Negative mg/dL (Normal) GLUCOSE, UR Normal mg/dL (Normal) CLARITY Clear (Normal) COLOR Yellow (Normal) 06-Xsn-919914:08 24 HR UR Creatinine Clearance Comments: [facility] Mjxdckecfx32[address] [place], [place], [address] CREAT CLEARANCE 94 ml/min (Abnormal) Range: 100-200 URINE CREAT 113.0 mg/dL (Normal) EST GFR - AA 84 mL/min (Normal) Comments: GFR Calc EST GFR 69 mL/min (Normal) Comments: Non- GFR Calc SERUM CREAT 0.9 mg/dL (Normal) Range: 0.6-1.0 UR TOTAL VOLUME 1100 mL (Normal) UR COLLECT TIME 24.0 {HOURS} (Normal) 12-Hks-332273:48 AFP, Tumor Marker Comments: Is Patient Fasting? NIs Patient ? [facility] (refer to report for specific site)refer to report for address and phone number AFP TUMOR 2253 2.8 ng/mL (Normal) Range: 0.0-8.3 Comments: Jai ECLIA methodology 80-Rxd-755758:48 ANCA Comments: Is Patient Fasting? NIs Patient [...] up testing of positive sera with both KY-3 and MPO- ANCA enzyme immunoassays. As many as 5% serumsamp les are positive only by EIA. Ref. AM J Clin Ypvynd6906;111:507-513. CYTOPLASMIC Ab <1:20 {titer} (Normal) 18-Zkm-188536:48 Anti-dsDNA Ab Comments: [facility] (refer to report for specific site)refer to report for address and phone number dsDNA AB <1 {IU/mL} (Normal) Range: 0-9 Comments: Negative <5 Equivocal 5 - 9 Positive >9Performed at: CB - [facility] Auugwv5967 [place], [place] [id number] D irector: Jonathan Khan PhD, Phone: [phone] CBC W/Diff, Automated Comments: [facility] Srtavekmed6116 [address] [place], [place], [address] Absolute Lymph 2.85 {X10_3/ul} (Normal) Range: 0.83-4.51 [...] 4.2-5.4 WBC 10.3 K/mm3 (Normal) Range: 4.4-11.0 :48 Complement C3 Comments: Is Patient Fasting? NIs Patient ? [facility] (refer to report for specific site)refer to report for address and phone number COMP C3 205 mg/dL (Abnormal) Range: 82-167 Comments: Performed at: - [facility] [id number] Director: Jonathan Khan PhD, Phone: [phone] 60-Nqw-586307:48 Complement C4 Comments: Is Patient Fasting? NIs Patient ? [facility] (refer to report for specific site)refer to report for address and phone number COMP C4 28 mg/dL (Normal) Range: 14-44 54-Anv-442520:48 SHAYLEE + Protein Elect, Serum Comments: Is Patient Fasting? NIs Patient ? [facility] (refer to report for specific site)refer to report for address and phone number NOTE: Comment (Normal) Comments: Protein electrophoresis scan will follow via computer,mail, or field marketing lead delivery. SHAYLEE RESULT,S Comment (Normal) Comments: No monoclonality detected. A/G RATIO 0.9 (Normal) Range: 0.7-1.7 GLOBULIN, TOTAL 3.2 g/dL (Normal) Range: 2.2-3.9 M-SPIKE g/dL (Normal) Comments: Not Observed GAMMA GLOBULIN 0.6 g/dL (Normal) Range: 0.4-1.8 BETA GLOBULIN 1.1 g/dL (Normal) Range: 0.7-1.3 XZZZI-4-DREF 1.2 g/dL (Abnormal) Range: 0.4-1.0 AEOBR-9-AWUA 0.3 g/dL (Normal) Range: 0.0-0.4 ALBUMIN 2.6 g/dL (Abnormal) Range: 2.9-4.4 IMMUNOGL M 77 mg/dL (Normal) Range: 26-217 IMMUNO A 213 mg/dL (Normal) Range: 87-352 IMMUNO G 558 mg/dL (Abnormal) Range: 700-1600 PROTEIN,TOTAL 5.8 g/dL (Abnormal) Range: 6.0-8.5 :48 Partial Thromboplast Time Comments: [facility] Kcitlwxngt[address] [place], [address] PTT 26.9 s (Normal) Range: 24.1-36.2 23-Sbc-401851:48 Prothrombin Time w/INR Comments: [facility] Klqdqxtlhw0938 [place], [address] INR 1.0 (Normal) PROTIME 12.6 s (Normal) Range: 11.7-14.9 :27 HgA1C , Office (99346) HgA1C , Office 6.1 % (Normal) Range: 4.6 - 7.1 30-Bju-177044:27 Blood Glucose , Office (49185) Blood Glucose , Office 104 (Normal) 0-Ixh-727595:10 Microscopic Examination Comments: PATIENT WAS FASTINGPERFORMED BY: [facility] [id number] Bacteria Few (Normal) Mucus Threads Present (Normal) Cast Type Hyaline casts (Normal) Casts Present {/lpf} (Abnormal) Epithelial Cells (non renal) 0-10 {/hpf} (Normal) Range: 0 - 10 RBC >30 {/hpf} (Abnormal) Range: 0 - 2 WBC 6-10 {/hpf} (Abnormal) Range: 0 - 5 2-Hty-815497:10 URINALYSIS, W/ MICRO (58254) Comments: PATIENT WAS FASTINGPERFORMED BY: [facility] Center[facility]odyAllegh[facility] [id number] Microscopic Examination See below: (Normal) Comments: Microscopic was indicated and was performed. Nitrite, Urine Negative (Normal) Urobilinogen,Semi-Qn 0.2 mg/dL (Normal) Range: 0.2-1.0 Bilirubin Negative (Normal) Occult Blood 2+ (Abnormal) Ketones Negative (Normal) Glucose Negative (Normal) Protein 4+ (Abnormal) WBC Esterase Negative (Normal) Appearance Clear (Normal) Urine-Color Yellow (Normal) pH 7.0 (Normal) Range: 5.0-7.5 Specific [place] 1.026 (Normal) Range: 1.005-1.030 8-Xhp-209789:10 MICROALBUMIN: CREATININE RATIO Comments: PATIENT WAS FASTINGPERFORMED BY: [employer] Cucbze6145 [facility] [id number] (27956) AND (84197) Microalb/Creat Ratio 4548.7 {mg/g_creat} (Abnormal) Range: 0.0-30.0 Microalbumin, Urine 5463.0 ug/mL (Normal) Comments: Results confirmed ondilution. Creatinine, Urine 120.1 mg/dL (Normal) 7-Mjf-967882:10 METABOLIC PANEL, COMPREHENSIVE Comments: PATIENT WAS FASTINGPERFORMED BY: [facility] Rfuykp4648 [facility] [id number] (39626) ALT (SGPT) 42 [iU]/L (Abnormal) Range: 0-32 [...] Glucose, Serum 94 mg/dL (Normal) Range: 65-99 8-Dtv-547500:10 CBC W/AUTO DIFF WBC (35149) Comments: PATIENT WAS FASTINGPERFORMED BY: [facility] Nplfsh2415 [facility] [id number] Immature Grans (Abs) 0.0 {x10E3/uL} (Normal) Range: [...] 3.77-5.28 WBC 12.2 {x10E3/uL} (Abnormal) Range: 3.4-10.8 5-Gjd-658805:10 LIPID PANEL (76406) Comments: PATIENT WAS FASTINGPERFORMED BY: [facility] SomersetUdgjcu2735 [facility] [id number] LDL/HDL Ratio 3.1 {ratio_units} (Normal) Range: 0.0-3.2 Comments: LDL/HDL Ratio Men Women 1/2 Avg.Risk 1.0 1.5 Av g.Risk 3.6 3.2 2X Avg.Risk 6.2 5.0 3X Avg.Risk 8.0 6.1 LDL Cholesterol Calc 131 mg/dL (Abnormal) Range: 0-99 VLDL Cholesterol Juliocesar 66 mg/dL (Abnormal) Range: 5-40 HDL Cholesterol 42 mg/dL (Normal) Triglycerides 331 mg/dL (Abnormal) Range: 0-149 Cholesterol, Total 239 mg/dL (Abnormal) Range: 100-199 1-Uex-213899:10 HEPATIC FUNCTION PANEL Comments: PATIENT WAS FASTINGPERFORMED BY: [facility]CoRobert [facility] SomersetGdsioh1824 [facility] [id number] (01618) Bilirubin, Direct 0.07 mg/dL (Normal) Range: 0.00-0.40 3-Lpo-272584:58 URINE BEULAH CULTURE-IDENTIFICATN Comments: PATIENT NOT FASTINGPERFORMED BY: [facility] Ybnoah4800 [facility] [id number] Information: SRC: ([id number]) Antimicrobial MIHEAD (Normal) Comments: S = Susceptible; [...] mL (Abnormal) Urine Final report Culture,Comprehensive (Abnormal) 3-Tgh-909419:26 Rapid Flu (31671 x 2) Comments: neg Influenza A Ag negative (Normal) 4-Xcc-597478:23 Urinalysis, Office (75073) UA - LEUKOCYTE ESTERASE Trace (Normal) UA - NITRITE Negative (Normal) URINE UROBILINGN GENNA TIMED Normal mg/dL (Normal) UA - PROTEIN 300 mg/dL (Normal) UA - PH 6 (Abnormal) UA - BLOOD Hemolyzed Large (Normal) UA - SPECIFIC GRAVITY 1.015 (Normal) UA - KETONES Negative mg/dL (Normal) UA - BILIRUBIN Negative (Normal) UA - GLUCOSE Negative (Normal) 9-Xde-614623:02 Bedside Glucose Comments: [facility] Qofb5972 [address] [place], [place] [address] BEDSIDE GLU 105 mg/dL (Normal) Range: 70-110 Comments: No Action RequiredMANAGEMENT OF PATIENT CARE PER NURSING PROTOCOL :49 TSH (94435) Comments: PATIENT NOT FASTINGPERFORMED BY: TERI [facility]Mer[facility] Ffoyrk2420 [facility] [id number] TSH 2.680 {uIU/mL} (Normal) Range: 0.450-4.500 :49 T4, FREE (THYROXINE) (47563) Comments: PATIENT NOT FASTINGPERFORMED BY: [facility] Usmajf2470 [facility] [id number] T4,Free(Direct) 0.86 ng/dL (Normal) Range: 0.82-1.77 :49 T3, FREE (TRIDOTHYRONINE) (59412) Comments: PATIENT NOT FASTINGPERFORMED BY: [facility]Mer[facility] Agmkte6039 [facility] [id number] Triiodothyronine,Free,Serum 3.0 pg/mL (Normal) Range: 2.0-4.4 :52 URINE BEULAH CULTURE-IDENTIFICATN Comments: PATIENT NOT FASTINGPERFORMED BY: LabMymichigan [facility] Center6370 [facility] [id number] Information: SRC:ALEISHA (57449) Result 1 ECV (Abnormal) Comments: Escherichia coli, [...] report Culture,Comprehensi (Abnormal) ve :26 Urinalysis, Office (41461) UA - LEUKOCYTE ESTERASE Negative (Normal) UA - NITRITE Positive (Normal) URINE UROBILINGN GENNA TIMED Normal mg/dL (Normal) UA - PROTEIN 300 mg/dL (Normal) UA - PH 7 (Normal) UA - BLOOD Hemolyzed Large (Normal) UA - SPECIFIC GRAVITY 1.020 (Normal) UA - KETONES Negative mg/dL (Normal) UA - BILIRUBIN Negative (Normal) UA - GLUCOSE Negative (Normal) 72-Dqf-446904:13 TSH (THYROID STIMULATING Comments: PATIENT WAS FASTINGPERFORMED BY: [facility] [id number] HORMONE) (02388) TSH 5.150 {uIU/mL} (Abnormal) Range: 0.450-4.500 :13 CALCIFEDIOL (54809) Comments: PATIENT WAS FASTINGPERFORMED BY: [facility] RegionShuropodyAlleghany Health [id number] Vitamin D, 25-Hydroxy 14.9 ng/mL (Abnormal) Range: 30.0-100.0 Comments: Vitamin D deficiency has been defined by the [place] [facility] Centercine and an Endocrine Society practice guideline as alevel of serum 25-OH vitamin D less than 20 ng/mL (1,2).The Endocrine Society went on to further define vitamin Dinsufficiency as a level between 21 and 29 ng/mL (2).1. IOM ([place] of Medicine). 2010. Dietary reference intakes for calcium and D. [place]: The National Academies Press.2. Miles MF, Tri [place], Juan Francisco SHEETS, et al. Evaluation, treatment, and prevention of vitamin D deficiency: an Endocrine Society clinical practice guideline. JCEM. 2010; 96(7):1911-30. 47-Gmx-912867:13 METABOLIC PANEL, COMPREHENSIVE Comments: PATIENT WAS FASTINGPERFORMED BY: [facility] RegionShuropodyAlleghany Health [id number] (84892) ALT (SGPT) 30 [iU]/L (Normal) Range: 0-32 [...] Glucose, Serum 107 mg/dL (Abnormal) Range: 65-99 27-Rda-488328:13 LIPID PANEL (20848) Comments: PATIENT WAS FASTINGPERFORMED BY: ROCKETHOME6370 [facility] [id number] LDL/HDL Ratio 3.2 {ratio_units} (Normal) Range: 0.0-3.2 Comments: LDL/HDL Ratio Men Women 1/2 Avg.Risk 1.0 1.5 Av g.Risk 3.6 3.2 2X Avg.Risk 6.2 5.0 3X Avg.Risk 8.0 6.1 LDL Cholesterol Calc 158 mg/dL (Abnormal) Range: 0-99 VLDL Cholesterol Juliocesar 65 mg/dL (Abnormal) Range: 5-40 HDL Cholesterol 50 mg/dL (Normal) Triglycerides 327 mg/dL (Abnormal) Range: 0-149 Cholesterol, Total 273 mg/dL (Abnormal) Range: 100-199 04-Ibn-688904:13 CBC with auto diff (11782) Comments: PATIENT WAS FASTINGPERFORMED BY: [employer]70 [facility] LogicAlleg[facility] [id number] Immature Grans (Abs) 0.0 {x10E3/uL} (Normal) Range: [...] 3.77-5.28 WBC 9.2 {x10E3/uL} (Normal) Range: 3.4-10.8 31-Tnn-007456:13 HGB A1C (76842) Comments: PATIENT WAS FASTINGPERFORMED BY: [facility]CoRobert [facility] SomersetZojfjs4281 [facility] [id number] Hemoglobin A1c 6.4 % (Abnormal) Range: 4.8-5.6 Comments: . Pre-diabetes: 5.7 - 6.4 Diabetes: >6.4 Glycemic control for adults with diabetes: <7.0 95-Kbj-00052:10 Urinalysis, Office (30501) UA - LEUKOCYTE ESTERASE Negative (Normal) UA - NITRITE Negative (Normal) URINE UROBILINGN GENNA TIMED Normal mg/dL (Normal) UA - PROTEIN 300 mg/dL (Normal) UA - PH 7 (Normal) UA - BLOOD Hemolyzed Large (Normal) UA - SPECIFIC GRAVITY 1.025 (Normal) UA - KETONES Negative mg/dL (Normal) UA - BILIRUBIN Negative (Normal) UA - GLUCOSE Negative (Normal) 65-Yzd-747220:28 URINE BEULAH CULTURE-IDENTIFICATN Comments: PATIENT NOT FASTINGPERFORMED BY: [employer] [facility] [id number] Information: SRC: ([id number]) Result 1 ECV (Abnormal) Comments: Escherichia coli, [...] S Urine Final report Culture,Comprehensi (Abnormal) ve 18-Jmp-807491:37 Urinalysis, Office (79351) UA - LEUKOCYTE ESTERASE Trace (Normal) UA - NITRITE Negative (Normal) URINE UROBILINGN GENNA TIMED Normal mg/dL (Normal) UA - PROTEIN 300 mg/dL (Normal) UA - PH 8.5 (Normal) UA - BLOOD Hemolyzed Large (Normal) UA - SPECIFIC GRAVITY 1.020 (Normal) UA - KETONES Negative mg/dL (Normal) UA - BILIRUBIN Negative (Normal) UA - GLUCOSE Negative (Normal) [id number] Culture, Aerobic, Comments: PATIENT NOT FASTINGPERFORMED BY: [facility] [id number] [facility] [id number] Information: LEFT LEG SRC:OH Bacterial ID ([id number]) Antimicrobial MIHEAD (Normal) Comments: S = Susceptible; [...] [place] Aerobic Bacterial Final report (Abnormal) Culture [id number] HGB A1C (55400) Comments: PERFORMED BY: [facility] [employer] [facility] [id number] Hemoglobin A1c 6.3 % (Abnormal) Range: 4.8-5.6 Comments: . Pre-diabetes: 5.7 - 6.4 Diabetes: >6.4 Glycemic control for adults with diabetes: <7.0 :46 TSH (69201) Comments: PATIENT NOT FASTINGPERFORMED BY: [facility] [employer] [facility] [id number] TSH 2.910 {uIU/mL} (Normal) Range: 0.450-4.500 :46 CBC WITH MANUAL DIFF (32469) Comments: PATIENT NOT FASTINGPERFORMED BY: [facility] [id number] [facility] [id number] Immature Grans (Abs) 0.0 {x10E3/uL} (Normal) Range: [...] 3.77-5.28 WBC 10.3 {x10E3/uL} (Normal) Range: 3.4-10.8 [id number] Metabolic Panel, Basic Comments: PATIENT NOT FASTINGPERFORMED BY: [facility] [id number] [facility] [id number] ([id number]) Calcium, Serum 8.6 mg/dL (Abnormal) Range: 8.7-10.2 [...] Plan of Care Name Dates Details Instructions Pneumonia, bacterial : Continue Current Prescription(s) Indication: Pneumonia, bacterial Cough : Reviewed Diagnostic Tests Indication: Cough Smoker : Eprescribed prescriptions (G8553) Indication: Smoker Pustules determined by examination : Reviewed Lab [...] typeII,controlled, renal comp Pulmonary hypertension : Reviewed [employer] Letter Indication: Pulmonary hypertension Glomerulonephritis, IgA : Reviewed [employer] Letter Indication: Glomerulonephritis, IgA Hyperlipidemia, mild [...] Indication: Hypertension Proteinuria, unspecified type : Reviewed [employer] Letter Indication: Proteinuria, unspecified type Diabetes [...] Pulmonary hypertension, mild Glomerulonephritis, IgA : Reviewed [employer] Letter Indication: Glomerulonephritis, IgA Hypertension : [...] Flags Indication: Hypertension Glomerulonephritis, IgA : Reviewed [employer] Letter Indication: Glomerulonephritis, IgA Controlled type 2 diabetes mellitus without complication : *Diabetes Education Indication: Controlled type 2 diabetes mellitus without complication Fatty liver : Diet, Exercise, and Wt loss Indication: Fatty liver Abscess of buttock : Reviewed [employer] Letter- Dr Eng Indication: Abscess of buttock Pulmonary hypertension, mild : Reviewed Diagnostic Tests Indication: Pulmonary hypertension, mild Glomerulonephritis, IgA : Reviewed [employer] Letter Indication: Glomerulonephritis, IgA Hypertension : Continue Current Prescription(s) Indication: Hypertension Hypertension : HTN/CAD Red Flags Indication: Hypertension Chronic obstructive asthma with acute exacerbation (Renamed from Chronic obstructive asthma with exacerbation) : Reviewed [employer] Letter Indication: Chronic obstructive asthma with [...] dvt Indication: Edema extremities Planned Observations CALCIFEDIOL ([id number])Indication: Vitamin D deficiency On: :49 Request T4, FREE (THYROXINE) (60730)Indication: Adult hypothyroidism On: :49 Request T3, FREE (TRIDOTHYRONINE) (29023)Indication: Adult hypothyroidism On: :49 Request TSH ([id number])Indication: Adult hypothyroidism On: :48 Request URINALYSIS, W/ MICRO ([id number])Indication: Diabetes typeII,controlled, renal comp On: :48 Request MICROALBUMIN: CREATININE RATIO (78381) AND (83988)Indication: Diabetes typeII,controlled, renal comp On: :48 Request LIPOPROTEIN, BLD, BY NMR ([id number])Indication: Diabetes typeII,controlled, renal comp On: :48 Request METABOLIC PANEL, COMPREHENSIVE (51244)Indication: Diabetes typeII,controlled, renal comp On: :48 Request CBC W/AUTO DIFF WBC ([id number])Indication: Diabetes typeII,controlled, renal comp On: :48 Request HGB A1C (80909)Indication: Diabetes typeII,controlled, renal comp On: :47 Request Comments: do in -january HGB A1C (83052)Indication: Diabetes typeII,controlled, renal comp On: :47 Request Comments: now METABOLIC PANEL, COMPREHENSIVE (64270)Indication: Itch of skin On: 59-Lib-877217:29 Request URINALYSIS, W/ MICRO ([id number])Indication: Hypertension On: :39 Request MICROALBUMIN: CREATININE RATIO (23601) AND (37681)Indication: Hypertension On: :39 Request CALCIFEDIOL (00334)Indication: Vitamin D deficiency On: :26 Request URINALYSIS, W/ MICRO ([id number])Indication: Hypertension On: :22 Request MICROALBUMIN: CREATININE RATIO (97384) AND (54321)Indication: Hypertension On: :22 Request METABOLIC PANEL, COMPREHENSIVE (50329)Indication: Hypertension On: : Request CBC W/AUTO DIFF WBC (37570)Indication: Hypertension On: : Request LIPID PANEL (99341)Indication: Hyperlipidemia, mild On: : Request TSH (08470)Indication: Adult hypothyroidism On: :21 Request ZWGLA-DUIVPIQCDQT-QATDH (66352)Indication: Fatty liver On: 41-Sqe-654111:01 Request URINALYSIS (53124)Indication: Hematuria On: 63-Hzd-837876:56 Request MICROALBUMIN 24 HOUR OR RANDOM ([id number])Indication: Other proteinuria On: 62-Cnp-695200:52 Request Comments: 24 hr for protein CREATININE CLEARANCE (45315)Indication: Other proteinuria On: 99-Byr-652941:52 Request MICROALBUMIN: CREATININE RATIO (80220) AND (29931)Indication: Controlled type 2 diabetes mellitus without complication On: 13-And-742523:28 Request Metabolic Panel, Basic (77971)Indication: Skin sore On: 84-Sut-685643:22 Request Metabolic Panel, Basic (23332)Indication: Edema extremities On: 30-Ncy-542055:19 Request Planned Encounters Medical; General Medical - On: 11-May-2018 13:30 [facility] Naomi Colunga DO, DO, Kathleen Planned Procedures PROLONGED PHYSICIAN SERVICE, OFFICE On: 15-Apr-2018 Intent ([id number])By: Naomi Colunga DO, DO, Kathleen Aerosol Treatment ([id number])By: Cristine On: 15-Apr-2018 Naomi Collazo DO, DO, Kathleen Comments: lil looser more a/e but still tight- diffuse insp and exp noise but less inspir after aerosluse resuce inahler q2hr while awke for 24 hr then q 4hr wa CXR PA & LAT ([id number])By: Cristine HAY, On: 15-Apr-2018 Intent Naomi Bautista DO Spirometry (07908)By: Cristine HAY, On: 15-Apr-2018 Intent Naomi Bautista DO Comments: severe obstruction -- O2 at rest 94% dn with ambulation 96% Rocephin Injection, 2 Gram On: 06-Feb-2018 Intent ([id number])By: Leticia Bernard DO Comments: lot: [id number]: ite/route: RGM and LGM (1 G given in each hip)amt: 2GVIS signed when applicableChelsea, [facility] US GALLBLADDER ([id number])By: Cristine On: 29-Dec-2017 Naomi Collazo DO, DO, Kathleen Comments: attention CBD size -- h/o stent in past MAMMOGRAM BREAST BILATERAL On: 11-Dec-2017 Intent SCREENING DIGITAL ([id number])By: Naomi Colunga DO, DO, Kathleen Flu Vaccine (Quadrivalent) [id number]: On: 10-Dec-2017 Naomi Pena DO, DO, Comments: Lot #[id number]/30/19Site-L dltd, IMDose prefilled syringegiven by:LINSEY Mcnulty reviewed and ABN signed Naomi X-RAY OF RIGHT HAND, TWO VIEWS On: 24-Sep-2017 Intent ([id number])By: Naomi Colunga DO Comments: send results to dr valles as well Naomi Colunga DO Radiology - Hand - LeftBy: Cristine On: 24-Sep-2017 Naomi Collazo DO, DO, Kathleen Comments: send results to dr valles as well THYROID ULTRASOUND ([id number])By: On: 25-Jun-2017 Naomi Pena DO, DO, Kathleen Spirometry (48510)By: Cristine HAY, On: 25-Jun-2017 Intent Naomi Bautista DO Comments: normal ELECTROCARDIOGRAM, COMPLETE (ECG) On: 25-Jun-2017 Intent ([id number])By: Naomi Colunga DO Comments: nsr no acute chg Naomi Colunga DO IV Needle placement (13515)By: On: 17-Jun-2017 Intent Rosaura Upton CNP INFUSION, NORMAL SALINE SOLUTION , On: 17-Jun-2017 Intent 1000 CC (Special Coverage Instructions Apply. See MCM: 2049) ([id number])By: Rosaura Upton CNP Phenergan Injection, up to 50 mg On: 17-Jun-2017 Intent ([id number])By: Rosaura Upton CNP Comments: 50mg given IM in left glut MeC Lot # [id number] exp Flu Vaccine (Quadrivalent) 57990Rg: On: 18-Dec-2016 Intent Naomi Colunga DO, DO, Comments: Lot:[id number]:09/22/17Amt:0.5mlRoute:IMSite: L DltdGiven By: LINSEY Bond signed Naomi SCREENING DIGITAL TOMOSYNTHESIS OF On: 05-Dec-2016 Intent BREAST ([id number])By: Naomi Colunga DO, DO, Kathleen THYROID ULTRASOUND ([id number])By: On: 31-May-2016 Intent Naomi Colunga DO, DO, Kathleen Spirometry (08163)By: Cristine HAY, On: 25-Apr-2016 Intent Naomi Bautista DO Comments: good PNEUM VAC ADLT/IMUMNOSPR, SBC/INTRM On: 25-Apr-2016 Intent ([id number])By: Naomi Colunga DO Comments: pneumovaxlot:[id number]:08/24/17ite:lt deltroute:IMdose:.5mlD.DASHA Kat DO, Kathleen ELECTROCARDIOGRAM, COMPLETE (ECG) On: 25-Apr-2016 Intent ([id number])By: Naomi Colunga DO Comments: nsr no acute chg Naomi Colunga DO Flu Vaccine (Quadrivalent) [id number]: On: 24-Jan-2016 Intent Willy Kat Comments: FLUlot: [id number]:10/04/16site:Lt deltoidroute:IMdose:.5mlDASHA GONZALES Planned Medications INFUSION, NORMAL SALINE [...] Indication: Edema extremities Encounters Office Visit On: 22-Apr-2018 13:58 Encounter Reason: Follow up acute care visit - The patient feeling better since last seen. Patient has been compliant with instructions. Current medication use: no side effects. 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 chronic kidney disease, unspecified correction insulin use status [facility] Office Visit On: 15-Apr-2018 13:58 Encounter Reason: [...] with stage 1 chronic kidney disease, unspecified correction insu vinnie use status, Folliculitis, Abnormal lung [...] with stage 1 chronic kidney disease, unspecified [employer] insulin use status, Nutritional counseling, Rash [facility] [...] with stage 1 chronic kidney disease, unspecified correction insulin use status, Skin sore, Nutritional counseling [...] On: 09-Apr-2017 14:48 Encounter Reason: forms for honatasha Catesjulianneer Diagnosis: Smoker, BMI 50.0-59.9, adult, Asthma, Pulmonary [...] Reason for ER visit: note: (was in [facility] sat to sun for sob they did not say what it was but got a referral to a lung doc DR. Gonsalez). The patient does not feel well.Encounter Diagnosis: [...] UTI's. I've seen [place]. Begum urologist in [place], [facility]. Encounter Diagnosis: [...] disease, Hypertension [facility] [employer]; a guarantor
--- OUTSIDE RECORDS SUMMARY | 2018-06-27 05:42 | XMS RPT_ITS | Continuity of Care Document ---
:1970 Author Organization [facility] Address [address] [place] [address] Phone Care Team Providers Name Role Phone [...] with stage 1 chronic kidney disease, unspecified alf insulin use status (E11.22, 250.42) Comments: pt didnt tolerate metformin, didnt tolerate novolog?? old doc in [place] , on [facility] , Status: Active Urinary incontinence in [...] DO, DO, Kathleen Start : 17-Oct-2017 Active Donald 5-325 MG Oral Tablet 1 bid prn [...] and Lateral Result: Comments: See Note; NOTES: [facility] Imaging Services [address] [place] [address] Chest PA and Lateral MR#: [id number] Acct: [id number] Name: JANIS ZAPATA Rep #: [id number] : 1970 F 47 From: Edmundo Carrasco MD PCP: Naomi Colunga DO Status: REG CLI Study: Chest PA and Lateral Date of Exam: 04/16/18 Exam# [id number] Ordering Dr: Naomi Colunga DO STUDY: X-R [...] Service support , CC: Naomi Colunga DO Foam Cutting Supervisor: Signed 05-Feb-2018 Pulmonary Visit Report Result: Comments: See Note; NOTES: [facility] [address] [place] [address] OFFICE VISIT Date of Service: 02/05/18 MR#: [id number] Acct: [id number] Name: JANIS PURVIS Rep #: [id number] : 1970 Provider: Albania Brenner Age/Sex: 47/F Location: [facility].PMW Status: Signed Assessment AND Plan 1. Moderate [...] cessation. You may call the free hotline 8-199-JFAZ-NOW. People who use this line are THREE [...] kidney failure and reports that recently her medical staff director took her off of her diuretics. 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) Time Spent - greater than 10 minutes: Yes (96868) 02/05/18 1425 <Electronically signed by [place]ia Brenner EMERGENCY VETERINARIAN-C> Date Gino Brenner EMERGENCY VETERINARIAN-C Cosigner Signature: Date (if applicable) CC: Naomi Reyeson 02-Jan-2018 Pulmonary Function Report Comp Result: Comments: See Note; NOTES: [facility] Pulmonary Services/Neurology [address] [place] [address] MR#: [id number] Acct: [id number] Name: JANIS ZAPATA Rep #: [id number] : 0 1970 47 From: Say Rosa MD Referring Dr: Albania Brenner NP Status: REG CLI Ordering Dr: Date: Location: [facility] Sex: F C COMPLETE PULMONARY FUNCTION TEST INTERPRETATION Brief HPI: Patient is a 47 year old female, currently under the care of Albania Brenner, who presents to [facility] for complete pulmonary function tests secondary to [...] DO Date Dictated: 01/02/18605 Date Transcribed: 01/02/18605 Foam Cutting Supervisor: CAREN Signed 05-Dec-2017 Emergency Department Summary Result: Comments: See Note; NOTES: [facility] Medical Records Department [address] [facility] [address] [place] [address] Emergency Department Summary 12/05/17 0651 MR#: [id number] Acct: [id number] Name: JANIS ZAPATA Rep #: [id number] : 1970 47 From: Alvarez Vu PCP: [...] injections in the past. She is on Donald 1-2 ta bs at night. History of [...] Dilaudid. Prior to discharge had itching, p.o. [place] dryl was given. She will follow-up with her pain physicians for reevaluation. Treatment Plan: [] Disposition: Discharge Impression: 1. Chronic back pain 2. Chronic left hip pain This note was gene rated with [employer] dictation software. It may contain incorrect words, [...] Primar y Care Provider. Call [facility] ([phone]) or report to the closest Emergency Room. Call 911 if necessary. 12/05/17 0843 <Electronically signed by Alvarez Vu> Date __ Alvarez Vu Cosigner Signature (If Indicated): Date CC: Naomi Colunga DO 20-Oct-2017 Discharge Instruction Result: Comments: See Note; NOTES: [facility] Medical Records Department [address] [place] [address] Discharge Instruction 10/20/17 1410 MR#: [id number] Acct: [id number] Name: JANIS ZAPATA Rep #: [id number] : 1970 47 From: Estephania Shay MD PCP: Naomi Colunga DO Status: [facility] ER ED Disposition - Plan for [...] your Primary Care Provider. Call [facility] ([phone]) or report to the closest Emergency Room. Ca ll 911 if necessary. 10/20/17 141 <Electronically signed by Estephania Shay MD> Date Estephania Shay MD Cosigner Signature (If Ind icated): Date CC: Naomi Colunga DO 20-Oct-2017 Discharge Instruction Result: Comments: See Note; NOTES: [facility] Medical Records Department [address] [place] [address] Discharge Instruction 10/20/17 1409 MR#: [id number] Acct: [id number] Name: JANIS ZAPATA Rep #: [id number] : 1970 47 From: Estephania Shay MD PCP: Naoim Colunga DO Status: REG ER ED Disposition [...] your Primary Care Provider. Call [facility] Registry ([phone]) or report to the closest Emergency Room. Ca ll 911 if necessary. 10/20/17 1410 <Electronically signed by Estephania Shay MD> Date Estephania Shay MD Cosigner Signature (If Ind icated): Date CC: Naomi Cristine HAY 20-Oct-2017 Emergency Department Summary Result: Comments: See Note; NOTES: [facility] Medical Records Department [address] [place] [address] Emergency Department Summary 10/20/17 1009 MR#: [id number] Acct: [id number] Name: JANIS ZAPATA Rep #: [id number] : 1970 47 From: Estephania Shay MD [...] pain, constipation This note was generated with [employer] dictation software. It may contain incorrect words, [...] your Primary Care Provider. Call [facility] ([phone]) or report to the closest Emergency Room. Call 911 if necessary. 10/20/17 1409 <Electronically signed by Estephania Shay MD> Date Estephania Shay MD Cosigner Signature (If Indica germain): Date CC: Naomi Colunga DO 20-Oct-2017 Abdomen/Pelvis WITH Contrast Result: Comments: See Note; NOTES: [facility] Imaging Services [address] [place] [address] Abdomen/Pelvis WITH Contrast MR#: [id number] Acct: [id number] Name: JANIS ZAPATA Rep #: [id number] : 1970 F 47 From: Matt Beckwith MD PCP: Naomi Colunga DO Status: REG ER Study: Abdomen/Pelvis WITH Contrast Date of Exam: 10/20/17 Exam# [id number] Ordering Dr: Grecia Shay MD STUDY: CT [...] Matt Beckwith MD at 13:14 EDT Tel [phone], Service support , CC: Estephania Shay MD; Naomi Colunga DO Foam Cutting Supervisor: Signed 03-Oct-2017 6 Minute Walk Test Result: Comments: See Note; NOTES: [facility] Pulmonary Services/Neurology [address] [place] [address] MR#: [id number] Acct: [id number] Name: JANIS ZAPATA Rep #: [id number] : 1970 47 From: Say Rosa MD Referring Dr: Brenner,[place] EMERGENCY VETERINARIAN Date: Ordering Dr: Sex: F C Location: [facility] PS 6 Minute Walk Test - 6 Minute Walk Test 6 Minute Walk Test: 6 Minute Walk Test P SN:6-Minute Walk Test Start: 10/03/17 11:21 Freq: Status: Active Protocol: RESP.6MINW Document 10/03/17 10:55 [facility] (Rec: 10/03/17 11:24 [facility] [id number]) 6 Minute Walk Test Date Performed 10/03/17 [...] supplemental oxygen is indicated at this time. 10/03/172 <Electronically signed by Say kenyon MD> Date Say Rosa MD CC: Date Dictated: 10/03/171320 Date Transcribed: 10/03/171320 Foam Cutting Supervisor: Say Rosa Signed 07-Jul-2017 Operative Report Result: Comments: See Note; NOTES: [facility] Medical Records Department [address] [place] [address] Operative Report 07/07/17 112 MR#: [id number] Acct: [id number] Name: RUBEN ZAPATA Rep #: [id number] : 1970 47 From: Harry Gagnon MD PCP: Naomi Colunga DO Status: REG [facility] Location: [place] [address] Problem List (1) DDD (degenerative disc disease), lumbosacral Status: ronic (2) Radiculopathy of lumbosacral region Status: Chronic [...] Spine Inj Result: Comments: See Note; NOTES: [facility] Imaging Services [address] [place] [address] Fluor Guidance for Spine Inj MR#: [id number] Acct: [id number] Name: JANIS ZAPATA Rep #: [id number] : 1970 F 47 From: Fabrizio Meade MD PCP: Naomi Colunga DO Status: [facility] Study: Fluor Guidance for Spine Inj Date of Exam: 07/07/17 Exam# [id number] Ordering Dr: Harry Gagnon CLINICAL HISTORY: Female, [...] at 7:19 EDT Tel , Service support [phone], CC: Harry Gagnon; Naomi Colunga DO Foam Cutting Supervisor: Signed 21-Jun-2017 Discharge Instruction Result: Comments: See Note; NOTES: [facility] Medical Records Department [address] [place] [address] Discharge Instruction 06/20/17 2228 MR#: [id number] Acct: [id number] Name: JANIS ZAPATA Rep #: [id number] : 1970 46 From: Harry Cortez MD [...] your Primary Care Provider. Call [facility] ([phone]) or report to the closest Emergency Room. Call 911 if necessary. 06/21/17 0030 <Electron ically signed by Harry Cortez MD> Date Harry Cortez MD Cosigner Signature (If Indicated): Date CC: Naomi Colunga DO 21-Jun-2017 Emergency Department Summary Result: Comments: See Note; NOTES: [facility] Medical Records Department [address] [place] [address] Emergency Department Summary 06/20/17 1839 MR#: [id number] Acct: [id number] Name: JANIS ZAPATA Rep #: [id number] : 1970 46 From: Harry Cortez MD PCP: Naomi Colunga DO Status: REG ER - ER Visit Summary Date of Service: 06/20/17 Chief Complaint: Diarrhea History of Present Illness: The patient is a 46 F 3 of irritable bowel syndrome and xxx-rexbtyb-jtxrxncmg diabetes along with renal insufficiency. Patient states [...] or toxic. She is in no ac cherokee distress. H EENT exam dry mucous membranes [...] culture pending This note was generated with [employer] dictation software. It may con tain incorrect [...] problems, contact your Primary Care Provider. Call [facility] [facility] ([phone]) or report to the closest Emergency Room. Call 911 if necessary. 06/21/17 0030 <Electronically signed by Harry Cortez MD> Date ____ Harry Cortez MD Cosigner Signature (If Indicated): Date CC: Naomi Colunga DO 29-May-2017 Pulmonary Visit Report Result: Comments: See Note; NOTES: [facility] [address] [place] [address] OFFICE VISIT Date of Service: 05/29/17 MR#: [id number] Acct: [id number] Name: JANIS PURVIS Rep #: [id number] : 1970 Provider: Albania Brenner Age/Sex: 46/F Location: [facility].PMW Status: Signed Assessment AND Plan 1. Pulmonary [...] Weight: 338 lb In take Visit Reasons: eddie [facility] Vendor: Ángel Accompanied by: Self Allergies amlodipine [...] PO DAILY 08/31/16 [History Confirmed 05/29/17] Tiotropium [place] [Spiriva 18 MCG] 1 puff INHALATION DAILY [...] tab PO BID 04/03/17 [History Confirmed 05/29/17] [facility] Medical History Continuous tobacco abuse (Chronic) WATTS [...] Spent - greater than 10 minutes: Yes (85911) 05/29/17 1347 <Electronically signed by Albania BURDICK> Date Albania BURDICK Cosigner Signature : Date (if applicable) CC: Naomi Colunga DO 16-Apr-2017 OT Functional Capacity Eval Result: Comments: See Note; NOTES: [facility] Occupational Therapy Health[address] [place], [place] [id number] Fax REHABILITATION SERVICES INI TIAL EVALUATION MR#: [id number] Acct: [id number] Name: JANIS ZAPATA Rep #: [id number] : 1970 46 From: Kelly Valdez OTR/L, CHT Referring Dr.: Naomi Colunga DO Status: REG RCR Insuranc e: [facility] Eval Date: SELF PAY INSURANCE OT Functional Capacity Eval - Task Lift [...] some weight. - Diagnoses Diagnoses: Asthma dx 1987. Migraines dx 1999. Spinal Stenosis dx 1999. Degenerative Disc Disease dx 1999. Severe Osteoarthritis dx 1999. B one spurs dx 1999. High blood pressure dx 2004. High cholesterol dx 2004. Diabetic dx 2004. Fibromyalgia dx 2004. Sleep Apnea dx 2007. Neuropathy dx 2009. Acid reflux dx 2009. Gastritris dx 2011. Sciati c dx 2011. Rhinitis dx 2012. Eczema dx 2012. Arrhythmia dx 2014. Hypthyroid dx 2016. Ambilical hernia dx 2016. Pulmonary hypertension dx 2016. COPD dx 2016. Kidney failure dx 2016 - Symptoms Symptoms: Joint Pain. Bilateral hip pain. Nubness/tingling in legs, feet. Spasum. limited mobility. SOB - Pain Pain: Pt reports pain is 4/10 and with activity 8/10. Pt states she is currently 4/10 with taking he r pain medication. 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 Job required standing, lifing and bending. Pt states she left this job due to pain and the inability to perform her job duties safely. - Behavioral Behavioral: pt was coorperative during the assessment. - ADLS ADLS: Pt states she lives with her , son future eoijgiqq-nx-nus and future step granddaughter. Home is a [...] use for toliting (toilet wi pe aide), sdc teacher, bed side comode, elevated toilet seat, sock [...] throughout 4/5 UB and LB strength Right Assistant Activities Director Strength Edna ge: 63.33 Right Assistant Activities Director Strength Percentile: 28% Left Assistant Activities Director Strength Average: 50.00 Left Assistant Activities Director Strength Percentile: 17% Right Lateral Pinch Average: [...] with bilateral hands. <Electronically signed by Kelly MOORE/Helene, CHT> 04/16/17 1612 CC: Naomi Colunga DO MK Signed For Medicare only, by signing this I certify the plan of care. Physicians Signature Date 03-Apr-2017 Emergency Department Summary Result: Comments: See Note; NOTES: [facility] Medical Records Department [address] [place] [address] Emergency Department Summary 04/03/17 1527 MR#: [id number] Acct: [id number] Name: JANIS ZAPATA Rep #: [id number] : 1970 46 From: Ana Paula Mendieta [...] weakness, improved This note was generated with [employer] dictation software. It may contain incorrect words, [...] your Primary Care Provider. Call [facility] ([phone]) or report to the closest Emergency Room. Call 911 if necessary. 04/03/17 1720 <Electronically signed by Ana Paula Mendieta MD> Date Ana Paula Mendieta MD Cosigner Signature (If Indicated): Date CC: Naomi Colunga DO 03-Apr-2017 Discharge Instruction Result: Comments: See Note; NOTES: [facility] Medical Records Department [address] [place] [address] Discharge Instruction 04/03/17 1532 MR#: [id number] Acct: [id number] Name: JANIS ZAPATA Rep #: [id number] : 1970 46 From: Ana Paula Mendieta MD PCP: Naomi Colunga DO Status: REG ER ED Disposition - Plan for ED Patient: Disposition: Home or Assisted Living Chief Complaint : Lower Extremity Injury Instructions: ED Weakness [facility] Referrals: Naomi Colunga DO [Primary Care Provider] - 1 Week What to do if you have Problems For any increased pain, shortness of breath, bl eeding, nausea or vomiting, chest pain, or any unexpected problems, contact your Primary Care Provider. Call [facility] ([phone]) or report to the closest Emergency Room. Call 911 if necessar y. 04/03/17 1534 <Electronically signed by Ana Paula Mendieta MD> Date Ana Paula Mendieta MD Cosigner Signature (If Indicated): Date CC: Naomi Colunga DO 03-Apr-2017 Lumbar Spine 2 or 3 Views Result: Comments: See Note; NOTES: [facility] Imaging Services [address] [place] [address] Lumbar Spine 2 or 3 Views MR#: [id number] Acct: [id number] Name: JANIS ZAPATA Rep #: : 1970 F 46 From: Louise Francis MD PCP: Naomi Colunga DO Status: REG ER Study: Lumbar Spine 2 or 3 Views Date of Exam: 04/03/17 Exam# [id number] Ordering Dr: Ana Paula Mendieta MD STUDY: [...] Signed: Louise Francis MD at 14:12 EST Te l , Service support , CC: Ana Paula Mendieta MD; Naomi Colunga DO Foam Cutting Supervisor: Signed 03-Apr-2017 Pelvis 1 or 2 Views Result: Comments: See Note; NOTES: [facility] Imaging Services [address] [place] [address] Pelvis 1 or 2 Views MR#: [id number] Acct: [id number] Name: JANIS ZAPATA Rep #: [id number] : 1970 F 46 From: Louise Francis MD PCP: Naomi Colunga DO Status: REG ER Study: Pelvis 1 or 2 Views Date of Exam: 04/03/17 Exam# [id number] Ordering Dr: Ana Paula Mendieta MD STUDY: [...] MD at 14:15 EST , Service support [phone], CC: Ana Paula Mendieta MD; Naomi Colunga DO Foam Cutting Supervisor: Signed 10-Feb-2017 Operative Report Result: Comments: See Note; NOTES: [facility] Medical Records Department [address] [place] [address] Operative Report 02/10/17 1112 MR#: [id number] Acct: [id number] Name: RUBEN ZAPATA Rep #: [id number] : 1970 46 From: Harry Gagnon MD PCP: Naomi Colunga DO Status: REG SDC Y Location: [place] [address] Report of Operation Date of Procedure: 02/10/17 [...] Jt Should/Hip/Knee Result: Comments: See Note; NOTES: [facility] Imaging Services [address] [place] [address] Inj/Asp Aakash Jt Should/Hip/Knee MR#: [id number] Acct: [id number] Name: JANIS ZAPATA Rep #: [id number] : 1970 F 46 From: Ministerio Vela MD PCP: Naomi Colunga DO Status: [facility] Study: Inj/Asp Aakash Jt Should/Hip/Knee Date of Exam: 02/10/17 Exam# [id number] Ordering Dr: Harry jama MD STUDY: X-RAY [...] , CC: Harry Gagnon; Naomi Colunga DO Foam Cutting Supervisor: Signed 18-Dec-2016 SCREENING MAMM (CAD), BILAT Result: Comments: See Note; NOTES: [facility] Imaging Services [address] [place] [address] SCREENING MAMM (CAD), BILAT MR#: [id number] Acct: [id number] Name: JANIS ZAPATA Rep #: [id number] : 1970 F 46 From: Matt Beckwith MD PCP: Naomi Colunga DO Status: [facility] CL Study: SCREENING MAMM (CAD), BILAT Date of Exam: 12/18/16 Exam# [id number] Ordering Dr: Jd Colunga DO MAMMOGRAPHY - [...] biopsy of a clinically suspic ious abnormality. [id number] Electronically Signed: Matt Beckwith MD at 12:54 EDT Tel [phone], Service support , CC: Naomi Colunga DO Foam Cutting Supervisor: Signed 16-Nov-2016 Echocardiogram Complete Result: Comments: See Note; NOTES: [facility] Cardiovascular Services [address] [place] [address] Echo Complete W/ Contrast 11/15/16 1357 MR#: [id number] Acct: [id number] Name: JANIS PURVIS Rep #: [id number] : 1970 46 From: Mukesh Gutierrez MD Attending Dr: Sharda Wylie PA-C Status: REG CLI Ordering Dr: Sharda Wylie PA-C Date: 11/15/16 Location: [facility] Sex: F C Admitted: Reason For Study: [...] Referring Physician: Carlotta Sharp Performed By: Marko Novoa, [facility] 11/16/16 1153 Date Mukesh Gutierrez MD CC: Sharda Wylie PA-C; Naomi Colunga DO Date Dictated: 11/15/16 1357 Date Transcribed: 11/16/16 1153 Foam Cutting Supervisor: Signed 10-Nov-2016 Consultation Result: Comments: See Note; NOTES: [facility] Medical Records Department [address] [facility] [address] Consultation 11/06/16 1831 MR#: [id number] Acct: [id number] Name: JANIS ZAPATA Rep #: [id number] : 1970 46 From: Kerrie Eng MD [...] Department Summary Result: Comments: See Note; NOTES: [facility] Medical Records Department [address] [place] [address] Emergency Department Summary 11/06/161940 MR#: [id number] Acct: [id number] Name: JANIS ZAPATA Rep #: [id number] : 1970 46 From: Antione Barron MD [...] mg 30 clindamycin 300 mg 40 and Donald is 20 is to recheck from Dr. Eng's note celina cunningham the next 2-3 days. Recheck sooner suggested by me for any worse pain fever chills nausea vomiting discharge Disposition: [Home] Impression: [] #1 acute perirectal abscess with I AND D by surgeon , #2 procedure sedation by ED physician ED Disposition - Plan for ED Patient: Chief Complaint: Abscess Instructions: ED Abscess IandD Prescriptions: Hydrocodone Bitart/Apap 5-325 [Donald 5/325] 1 - 2 tablet PO Q4H [...] your Primary Care Provider. Call Doctors Re gist ([phone]) or report to the closest Emergency Room. Call 911 if necessary. 11/07/16 0154 <Electronically signed by Antione Barron MD> Date Antione Barron MD Cosigner Signature (If Indicated): Date CC: Naomi Colunga DO 06-Nov-2016 Discharge Instruction Result: Comments: See Note; NOTES: [facility] Medical Records Department [address] [place] [address] Discharge Instruction 11/06/161932 MR#: [id number] Acct: [id number] Name: JANIS ZAPATA Rep #: [id number] : 1970 46 From: Antione Barron MD PCP: Naomi Colunga DO Status: REG ER ED Disposition - Plan for ED Patient: Chief Complaint: Abscess Instructions: ED Abscess IandD Prescriptions: Hydrocodone Bitart/Apap 5-325 [Donald 5/325] 1 - 2 tablet PO Q4H [...] your Primary Care Provider. Call [facility] ([phone]) or report to the closest Emergency Room. Call 911 if necessary. 11/06/161935 <Electronically signed by Antione Barron MD> Date Antione Barron MD Cosigner Signature (If Indicated): Date CC: Naomi Colunga DO 06-Nov-2016 Discharge Instruction Result: Comments: See Note; NOTES: [facility] Medical Records Department [address] [place] [address] Instructions for Home/Discharge Instructions 11/06/16 1829 MR#: [id number] Acct: [id number] Name: JANIS ZAPATA Rep #: [id number] : 1970 46 From: Kerrie Eng MD [...] Caplet] 1 tab PO DAILY 08/31/16 Tiotropium [place] [Spiriva 18 MCG] 1 puff INHALATION DAILY [...] Up With: Velasquez or - call When: Thurs or Frid, please call for day and time, thank you [phone] <Electronically signed by Kerrie Eng MD> Date Kerrie Eng MD CC: Naomi Colunga DO 06-Nov-2016 Emergency Department Summary Result: Comments: See Note; NOTES: [facility] Medical Records Department [address] [place] [address] Emergency Department Summary 11/06/16 1521 MR#: [id number] Acct: [id number] Name: JANIS ZAPATA Rep #: [id number] : 1970 46 From: Antione Barron MD [...] ED Patient: Chief Complaint: Abscess Referrals: Naomi Colunga DO [Primary Care Provider] - What to do if you have Problems For any increased pain, shortness of breath, bleeding, nausea or vom iting, chest pain, or any unexpected problems, contact your Primary Care Provider. Call [employer] [facility] ([phone]) or report to the closest Emergency Room. Call 911 if necessary. 11/06/16 1543 &a mp;#60;Electronically signed by Antione Barron MD> Date Antione Barron MD Cosigner Signature (If Indicated): Date CC: Naomi Colunga DO 06-Nov-2016 Pelvis WITH IV Contrast Result: Comments: See Note; NOTES: [facility] Imaging Services [address] [place] [address] Pelvis WITH IV Contrast MR#: [id number] Acct: [id number] Name: JANIS ZAPATA Rep #: [id number] : 1970 F 46 From: Ana Paula Blum MD PCP: Naomi Colunga DO Status: REG ER Study: Pelvis WITH IV Contrast Date of Exam: 11/06/16 Exam# [id number] Ordering Dr: Antione Barron MD STUDY: CT [...] Paula Blum MD at 16:55 EDT Tel [phone], S ervice support , CC: Antione Barron MD; Naomi Colunga DO Foam Cutting Supervisor: Signed 17-Oct-2016 Pulmonary Function Report Comp Result: Comments: See Note; NOTES: [facility] Pulmonary Services/Neurology [address] [place] [address] MR#: [id number] Acct: [id number] Name: JANIS ZAPATA Rep #: [id number] : 0 1970 46 From: Say Rosa MD Referring Dr: Jeremias Gonsalez D.O. Status: REG CLI Ordering Dr: Date: Location: [facility] Sex: F C Pulmonary Function Report Comp Pulmonary Function Report Comp: COMPLETE PULMONARY FUNCTION TEST INTERPRETATION Brief HPI: Patient is a 46 year old female, currently under the care of Dr. Gonsalez, who presents to [facility] for complete pulmonary fu nction tests secondary [...] a poss ible concomitant pulmonary vascular disorder. 10/17/161625 <Electronically signed by Say Rosa MD> Date Say Rsoa MD CC: Say levy MD; Naomi Colunga DO Date Dictated: 10/17/161622 Date Transcribed: 10/17/161622 Foam Cutting Supervisor: CAREN Signed 04-Oct-2016 6 Minute Walk Test Result: Comments: See Note; NOTES: [facility] Pulmonary Services/Neurology [address] [place] [address] MR#: [id number] Acct: [id number] Name: JANIS ZAPATA Rep #: [id number] : 1970 46 From: Say Rosa MD Referring Dr: Jeremias Gonsalez D.O. Date: Ordering Dr: Sex: F C Location: [facility] PSN 6 Minute Walk Test - 6 Minute Walk Test 6 Minute Walk Test: 6 Minute Walk Test PSN :6-Minute Walk Test Start: 10/04/16 12:48 Freq: Status: Active Document 10/04/16 12:48 DWP (Rec: 10/04/16 12:56 DWP [id number]) 6 Minute Walk Test Date Performed 10/04/16 [...] CC: Date Dictated: 10/04/161806 Date Transcribed: 10/04/161806 Foam Cutting Supervisor: Say Rosa Signed 17-Sep-2016 Chest 1 View Result: Comments: See Note; NOTES: [facility] Imaging Services [address] [place] [address] Verda 4d Chest 1 View MR#: [id number] Acct: [id number] Name: JANIS ZAPATA Rep #: [id number] : 1970 F 46 From: Fabrizio Meade MD PCP: Naomi Colunga DO Status: REG CLI Study: Chest 1 View Date of Exam: 09/17/16 Exam# [id number] Ordering Dr: Fabrizio Meade MD STUDY: X-RAY [...] CC: Fabrizio Meade MD; Naomi Colunga DO Foam Cutting Supervisor: Signed 17-Sep-2016 Biopsy/Inj or Needle Placement Result: Comments: See Note; NOTES: [facility] Imaging Services [address] [place] [address] Verdana 4d Biopsy/Inj or Needle Placement MR#: [id number] Acct: [id number] Name: FREDY ZAPATA Rep #: [id number] : 1970 F 46 From: Fabrizio Meade MD PCP: Naomi Colunga DO Status: REG CLI Study: Biopsy/Inj or Needle Placement Date of Exam: 09/17/16 Exam# [id number] Ordering Dr: Ximena Slater MD PROCEDURE: CT-GUIDED [...] CC: Vibha Larson M.D.; Naomi Colunga DO Foam Cutting Supervisor: Signed 31-Aug-2016 Chest PA and Lateral Result: Comments: See Note; NOTES: [facility] Imaging Services [address] [place] [address] Verdana 4d Chest PA and Lateral MR#: [id number] Acct: [id number] Name: JANIS ZAPATA Rep #: [id number] : 1970 F 46 From: Jesús Mcconnell MD PCP: Naomi Colunga DO Status: REG ER Study: Chest PA and Lateral Date of Exam: 08/31/16 Exam# [id number] Ordering Dr: Fatimah Rene STUDY: X- RAY [...] , CC: Fatimah Rene; Naomi Colunga DO Foam Cutting Supervisor: Signed 29-Aug-2016 Operative Report Result: Comments: See Note; NOTES: [facility] Medical Records Department [address] [place] [address] Operative Report MR#: [id number] Acct: [id number] Name: JANIS ZAPATA Rep #: [id number] : 1970 46 From: Harry Gagnon MD PCP: Naoim Colunga DO Status: [facility] DATE OF SERVICE: 08/05/2016 DATE OF PROCEDURE: [...] indicated. Harry Gagnon MD T: NTS JOB: [id number] 08/29/16 1633 <Electronically signed by Harry Gagnon MD> Date ___ Harry Gagnon MD Cosigner Signature (If Indicated): Date CC: Harry Colunga DO Date Dictated: 08/05/16 1204 Date Trans cribed: 08/05/16 120 Foam Cutting Supervisor: Signed 15-Aug-2016 PT D/C Summary (1) Result: Comments: See Note; NOTES: [facility] Physical Therapy [facility] [address] [place] [address] Fax REHABILITATION SERVICES SUNDAR JONES SUMMARY MR#: [id number] Acct: [id number] Name: JANIS ZAPATA Rep #: [id number] : 1970 46 From: Marguerite Haq DPT Referring Dr.: Leticia Bernrad DO Status: REG RCR Insurance: [employer] N[employer] HP - PT D/C Summary It has [...] back is almost pain free. Left hip: 09/14 Knees: 10/14. Loves the pool but the exercises increase [...] Progress: Progressing - Plan Plan: Discharge to HEP - D/C Information If there are questions or concerns regarding this patient's physical therapy, please feel free to call me at [phone]. Thank you for the referral of this patient. Sincerely, Marguerite Haq <Electronically signed by Marguerite Haq DPT> 08/15/16 1053 CC: Leticia Colunga DO ELR Signed 05-Aug-2016 OR-Steroi/Epid Inj/Lum Sac/1st Result: Comments: See Note; NOTES: [facility] Imaging Services [address] [place] [address] Verdana 4d OR-Steroi/Epid Inj/Lum Sac/1st MR#: [id number] Acct: [id number] Name: FREDY ZAPATA Rep #: [id number] : 1970 F 46 From: Matt Beckwith MD PCP: Naomi Colunga DO Status: [facility] Study: OR-Steroi/Epid Inj/Lum Sac/1st Date of Exam: 08/05/16 Exam# [id number] Ordering Dr : Harry Gagnon MD PROCEDURE: Caudal block. DATE OF EXAMINATION: August 05, 2016. INDICATION: Female, 46 years old. A caudal block was performed by the pain management physician. RAD/OR-Steroi/Epid Inj/Lum Sac/1st IMPRESSION: Fluoroscopic services provided for caudal block. Electronically Signed: Matt Beckwith MD at 15:16 EDT Tel [phone], Service support , CC: Harry Gagnon; Naomi Colunga DO Foam Cutting Supervisor: Signed 25-Jul-2016 Re-Evaluation - PT (1) Result: Comments: See Note; NOTES: [facility] Physical Therapy [facility] [address] [place] [address]. [address] [place] [address] Fax REEVALUATION / MEDICARE RECERTI FICATION Deans 4d PHYSICAL THERAPY MR#: [id number] Acct: [id number] Name: JANIS ZAPATA Rep #: [id number] : 1970 46 From: Marguerite KONGT Referring DrYaneth: Leticia Bernard DO Status: REG RCR Ins urance: [facility] Leticia Bernard DO, It has been my [...] she is waiting for a phone call. [place] the knee/hip injections helped. Feels that the [...] do not hesitate to contact me at [phone] by phone or if you have questions or concerns regarding this new plan of care! Sincerely, Marguerite Haq <Electronically signed by Marguerite Haq DPT> 07/25/16 1609 CC: Leticia Bernard DO; Naomi Colunga DO ELR Signed For Medicare only, by signing this I certify the plan of care. Physicians Signature Date 15-Jul-2016 L/S Spine Min 4 Views Result: Comments: See Note; NOTES: [facility] Imaging Services [address] [place] [address] Verdana 4d L/S Spine Min 4 Views MR#: [id number] Acct: [id number] Name: JANIS ZAPATA p #: [id number] : 1970 F 46 From: Aaron Glasgow MD PCP: Naomi Colunga DO Status: REG CLI Study: L/S Spine Min 4 Views Date of Exam: 07/15/16 Exam# [id number] Ordering Dr: Daniella Sharp STUDY: X-RAY - [...] at 12:48 EDT Tel , Service support [phone], CC: Carlotta Sharp; Naomi Colunga DO Foam Cutting Supervisor: Signed 24-Jun-2016 Knee 4 or More Views Result: Comments: See Note; NOTES: [facility] Imaging Services [address] [place] [address] Verdana 4d Knee 4 or More Views MR#: [id number] Acct: [id number] Name: JANIS ZAPATA Rep # : [id number] : 1970 F 45 From: Jesús Mcconnell MD PCP: Naomi Colunga DO Status: REG RCR Study: Knee 4 or More Views Date of Exam: 06/24/16 Exam# [id number] Ordering Dr: Carlotta Sharp STUD Y: X-RAY [...] at 3:27 EDT Tel , Service support [phone], CC: Carlotta Sharp; Naomi Colunga DO Foam Cutting Supervisor: Signed 24-Jun-2016 Knee 4 or More Views Result: Comments: See Note; NOTES: [facility] Imaging Services [address] [place] [address] Verdana 4d Knee 4 or More Views MR#: [id number] Acct: [id number] Name: JANIS ZAPATA Rep # : [id number] : 1970 F 45 From: Jesús Mcconnell MD PCP: Naomi Colunga DO Status: REG RCR Study: Knee 4 or More Views Date of Exam: 06/24/16 Exam# [id number] Ordering Dr: Carlotta Sharp STUD Y: X-RAY [...] at 3:30 EDT Tel , Service support [phone], CC: Carlotta Sharp; Naomi Colunga DO Foam Cutting Supervisor: Signed 04-Jun-2016 Inital Evaluation (1) - PT Result: Comments: See Note; NOTES: [facility] Physical Therapy [facility] [address] [place] [address]. [address] [place] [address] Fax REHABILITATION SERVICES INITIAL EVALUATION MR#: [id number] Acct: [id number] Name: JANIS ZAPATA Rep #: [id number] : 1970 45 From: Marguerite Haq DPT Referring Dr.: Carlotta Sharp Status: REG [facility] Insurance: [facility] Patient's Visit Information JANIS ZAPATA is a [...] Since 2000 has been seeing neurologist - 2007 had back surgery- Dr. Merino- fusion- Dr [...] to be FAXED BACK to us at [phone] for Medicare purposes. Please let me know if there are questions or concerns regarding this plan of care. Physician Signature: Date: <Electronically signed by Marguerite Haq DPT> 06/04/16 2367 CC: Carlotta Kirkland ; Naomi Colunga DO ELR Signed For Medicare only, by signing this I certify the plan of care. Physicians Signature Date 04-Jun-2016 Thyroid Result: Comments: See Note; NOTES: [facility] Imaging Services [address] [place] [address] Verdana 4d Thyroid MR#: [id number] Acct: [id number] Name: JANIS ZAPATA Rep #: [id number] D OB: 1970 F 45 From: Shaggy Jean DO PCP: Naomi Colunga DO Status: REG CLI Study: Thyroid Date of Exam: 06/04/16 Exam# [id number] Ordering Dr: Naomi Colunga DO STUDY: THYROID [...] DO at 20:11 EST Tel , S [facility]rick[facility] support [phone], CC: Naomi Colunga DO Foam Cutting Supervisor: Signed 27-May-2016 Operative Report Result: Comments: See Note; NOTES: [facility] Medical Records Department [address] [place] [address] Operative Report MR#: [id number] Acct: [id number] Name: JANIS ZAPATA Rep #: [id number] : 1970 45 From: Harry Gagnon MD PCP: Naomi Colunga DO Status: [facility] DATE OF SERVICE: 05/13/2016 DATE OF SERVICE: [...] indicated. Harry Gagnon MD T: NTS JOB: [id number] 05/27/16 1356 <Electronically signed by Harry Gagnon MD> Date __ Harry Gagnon MD Cosigner Signature (If Indicated): Date CC: Harry GagnonAbi Ames Date Dictated: 05/13/16 1118 Date Transcribed: 05/13/168 Foam Cutting Supervisor: Signed 13-May-2016 Inj/Asp Aakash Jt Should/Hip/Knee Result: Comments: See Note; NOTES: [facility] Imaging Services [address] [place] [address] Verdana 4d Inj/Asp Aakash Jt Should/Hip/Knee MR#: [id number] Acct: [id number] Name: FREDY ZAPATA Rep #: [id number] : 1970 F 45 From: Matt Beckwith MD PCP: Naomi Colunga DO Status: [facility] Study: Inj/Asp Aakash Jt Should/Hip/Knee Date of Exam: 05/13/16 Exam# [id number] Ordering Dr: Harry Gagnon MD STUDY: INJECTION [...] Matt Beckwith MD at 13:45 EST Tel [phone], Service support [phone], Fax CC: Harry Gagnon; Naomi Colunga DO Foam Cutting Supervisor: Signed Family History Unknown Family Member Name [...] Active Vital Signs Date Test Result Details :00 Temperature 98 f Comments: Method: Oral [...] kg/m2 Body Surface Area Calculated 2.5 m2 :26 Temperature 97.2 f Comments: Method: Temporal Pulse [...] kg/m2 Body Surface Area Calculated 2.4 m2 8-Wca-811637:00 Pulse 107 /min Comments: Pattern: Regular Respiration [...] 2.46 m2 Results Date Description Value Details 5-Hgb-424078:27 Rapid Flu (03104 x 2) Influenza A Ag negative (Normal) 8-Cnx-188013:26 Aerobic Bacterial Culture Comments: R arm; PATIENT NOT FASTINGPERFORMED BY: [facility] Ktndrt8689 [facility] [id number] Information: RIGHT ARM SRC:AR (75800) Antimicrobial MIHEAD (Normal) Comments: S = Susceptible; [...] Meropenem Aerobic Bacterial Final report (Abnormal) Culture 1-Ofd-596316:25 Aerobic Bacterial Culture Comments: L leg; PATIENT NOT FASTINGPERFORMED BY: [facility] Bezqjj3045 [facility] [id number] Information: LEFT LEG SRC:FL (52013) Antimicrobial MIHEAD (Normal) Comments: S = Susceptible; [...] U/L (Abnormal) Comments: PATIENT NOT FASTINGPERFORMED BY: [facility]6370 [facility] [id number] 84415:17 Range: 31-124 Lipase 34 U/L (Normal) Comments: PATIENT NOT FASTINGPERFORMED BY: [facility]6370 [facility] [id number] 08251:17 Range: 14-72 Written Authorization WAR (Normal) Comments: PATIENT NOT FASTINGPERFORMED BY: [facility]6370 [facility] [id number] 00049:17 Comments: Written Authorization Received.Authorization received from REJI SOMERS [id number] by Violet Gong 67-Zcz-624204:17 C-REACTIVE PROTEIN (52743) Comments: PATIENT NOT FASTINGPERFORMED BY: [facility]6370 [facility] [id number] C-Reactive Protein, Quant 17.9 mg/L (Abnormal) Range: 0.0-4.9 13-Mbr-717528:17 SED RATE ERYTHROCYTE (84359) Comments: PATIENT NOT FASTINGPERFORMED BY: [facility]6370 [facility] [id number] Sedimentation Rate-[facility] 77 mm/h (Abnormal) Range: 0-32 38-Kno-780625:17 CBC W/AUTO DIFF WBC (52295) Comments: PATIENT NOT FASTINGPERFORMED BY: [facility]6370 [facility] [id number] Immature Grans (Abs) 0.0 {x10E3/uL} (Normal) Range: [...] 3.77-5.28 WBC 11.1 {x10E3/uL} (Abnormal) Range: 3.4-10.8 30-Ooq-302660:17 METABOLIC PANEL, COMPREHENSIVE Comments: PATIENT NOT FASTINGPERFORMED BY: [facility] RehabilitationBgnnxg3294 [facility] [id number] (23719) ALT (SGPT) 35 [iU]/L (Abnormal) Range: 0-32 [...] 6-24 Glucose 124 mg/dL (Abnormal) Range: 65-99 27-Tgz-433625:45 CBC-Complete Blood Cnt No Diff Comments: [facility] Jfukoaexju6035 [facility] [place], [address] MPV 10.5 fL (Normal) Range: 6.2-12.0 PLT [...] 4.2-5.4 WBC 11.0 K/mm3 (Normal) Range: 4.4-11.0 :45 Protein+Creatinine Ratio,Urine Comments: [facility] Fckuhehucn9302 [facility]. [place], [place], [id number] PROT:CRE RATIO 2991 {mg/g_CRE} (Abnormal) Range: 0-200 PROTEIN,UR.RAN. 193.2 mg/dL (Abnormal) UR CREAT 64.60 mg/dL (Normal) 47-Hqa-439908:45 PTHIN 38.7 pg/mL (Normal) Comments: [facility] [address] [place], [id number] Range: 18.4-80.1 20-Rdr-258821:45 Renal Profile Comments: [facility] [address] [place], [address] CO2 25.0 mmol/L (Normal) Range: 21.0-32.0 [...] A.D.A. criteria.Please note revised GLUCOSE reference range donzqjkua08/02/2018. 63-Xaf-994272:45 Vitamin D,25 Hydroxy Comments: [facility] [address]og[address] [place], [id number] Vitamin D 25-OH 36.6 ng/mL (Normal) Range: 29.95-100.01 Comments: Vitamin D 25(OH) Status Range Deficiency <20 ng/mL (50nmol/L) Insuffciency 20 - 30 ng/mL (50 - 75 nmol/L) Sufficiency 30 - 100 ng/mL (75 - 250 nmol/L) Toxicity >100 ng/mL (>250 nmol/L) 4-Kce-693647:17 Hemoglobin A1c Comments: [facility] [address] [place], [address] HGB A1C 6.4 % (Abnormal) Range: 4.2-6.3 4-Tel-721775:11 CBC-Complete Blood Cnt No Diff Comments: [facility] [address] [place], [id number] MPV 10.1 fL (Normal) Range: 6.2-12.0 PLT [...] 4.2-5.4 WBC 8.1 K/mm3 (Normal) Range: 4.4-11.0 9-Frr-950170:11 Protein+Creatinine Ratio,Urine Comments: [facility] [address] [place], [address] PROT:CRE RATIO 1973 {mg/g_CRE} (Abnormal) Range: 0-200 PROTEIN,UR.RAN. 133.6 mg/dL (Abnormal) UR CREAT 67.70 mg/dL (Normal) 2-Akf-530234:11 PTHIN 22.2 pg/mL (Normal) Comments: [facility] [address] [place], [id number] Range: 18.4-80.1 9-Uhz-968341:11 Renal Profile Comments: [facility] [address] [place], [id number] CO2 24.0 mmol/L (Normal) Range: 21.0-32.0 CL [...] A.D.A. criteria.Please note revised GLUCOSE reference range cxnsgfwen53/02/2018. 9-Zor-057458:11 Vitamin D,25 Hydroxy Comments: [facility] [address]swdb[address] [place], [address] Vitamin D 25-OH 42.2 ng/mL (Normal) Range: 29.95-100.01 Comments: Vitamin D 25(OH) Status Range Deficiency <20 ng/mL (50nmol/L) Insuffciency 20 - 30 ng/mL (50 - 75 nmol/L) Sufficiency 30 - 100 ng/mL (75 - 250 nmol/L) Toxicity >100 ng/mL (>250 nmol/L) 04-Vyo-549407:20 Urinalysis, Complete Comments: Order Date: 10/20/17Has pt arrived? YHow was Urine Obtained? CLEAN [facility] Dniugukksz5589 [facility] [address] [place], [address] MUCUS, URINE 0 SEEN {/hpf} (Normal) [...] (Normal) CLARITY Clear (Normal) COLOR Yellow (Normal) 14-Vpv-599659:20 CBC W/Diff, Automated Comments: [facility] [address]gfuh[address] [facility]. [place], [place], [id number] Absolute Lymph 2.39 {X10_3/ul} (Normal) Range: 0.83-4.51 [...] 4.2-5.4 WBC 7.0 K/mm3 (Normal) Range: 4.4-11.0 23-Vhm-251185:20 Comprehensive Metabolic Profil Comments: [facility] [address] [place], [address] GAP 10 (Normal) Range: 5-15 CO2 25.0 [...] A.D.A. criteria.Please note revised GLUCOSE reference range apkjmdhqm26/02/2018. 3-Uak-722634:52 Culture, Urine Comments: [facility] [address] [place], [place], [address] CUUR See Note (Normal) Comments: Urine CultureORGANISM [...] $ <=20 S(NF) indicates non-formulary drug at [facility]. Approval by Infectious Disease Specialist required before non-formulary drugs may be ordered and/or dispensed. 08-Srt-125063:38 CBC-Complete Blood Cnt No Diff Comments: [facility] [address] [place], [place], [address] MPV 10.3 fL (Normal) Range: 6.2-12.0 PLT [...] (Normal) Range: 4.4-11.0 :38 Protein+Creatinine Ratio,Urine Comments: [facility] [address] [place], [address] PROT:CRE RATIO 2487 {mg/g_CRE} (Abnormal) Range: 0-200 PROTEIN,UR.RAN. 318.3 mg/dL (Abnormal) UR CREAT 128.00 mg/dL (Normal) 11-Nso-542297:38 PTHIN 32.3 pg/mL (Normal) Comments: [facility] [address] [place], [address] Range: 18.4-80.1 77-Dxt-409421:38 Renal Profile Comments: [facility] [address]axh[address] [place], [address] CO2 24.0 mmol/L (Normal) Range: 21.0-32.0 CL [...] A.D.A. criteria.Please note revised GLUCOSE reference range whxsnsdoh55/02/2018. 17-Qng-622397:38 Vitamin D,25 Hydroxy Comments: [facility] [address] [place], [address] Vitamin D 25-OH 38.5 ng/mL (Normal) Range: 29.95-100.01 Comments: Vitamin D 25(OH) Status Range Deficiency <20 ng/mL (50nmol/L) Insuffciency 20 - 30 ng/mL (50 - 75 nmol/L) Sufficiency 30 - 100 ng/mL (75 - 250 nmol/L) Toxicity >100 ng/mL (>250 nmol/L) 05-Fks-209765:35 Comprehensive Metabolic Profil Comments: [facility] [address] [place], [address] GAP 9 (Normal) Range: 5-15 CO2 26.0 [...] A.D.A. criteria.Please note revised GLUCOSE reference range esfkfhxez02/02/2018. 07-Jul-20179:31 Bedside Glucose Comments: [facility] [place] [address] BEDSIDE GLU 133 mg/dL (Abnormal) Range: 70-110 Comments: MANAGEMENT OF PATIENT CARE PER NURSING PROTOCOL 34-Zve-433817:01 HGB A1C (46048) Comments: PATIENT WAS FASTINGPERFORMED BY: [facility] Wgiuoq3525 [facility] [id number] Hemoglobin A1c 6.2 % (Abnormal) Range: 4.8-5.6 Comments: . Pre-diabetes: 5.7 - 6.4 Diabetes: >6.4 Glycemic control for adults with diabetes: <7.0 51-Hbh-830877:00 Basic Metabolic Profile (BMP) Comments: [facility] Aqtnnqhqod2778 [facility] [place], [address] GAP 10 (Normal) Range: 5-15 [...] A.D.A. criteria.Please note revised GLUCOSE reference range taazornnc04/02/2018. 42-Rjl-042719:00 CBC W/Diff, Automated Comments: [facility] [address] [place], [address] SMEAR COMMENT SCANNED (Normal) Absolute Lymph 4.73 [...] 4.2-5.4 WBC 11.2 K/mm3 (Abnormal) Range: 4.4-11.0 51-Vfo-801216:00 Urinalysis, Complete Comments: Order Date: 06/20/17Has pt arrived? YHow was Urine Obtained? CLEAN [facility] [address]ef[address] [place], [place], [id number] MUCUS, URINE 0 SEEN {/hpf} (Normal) BACTERIA [...] CLARITY Sl. Cloudy (Normal) COLOR Yellow (Normal) 31-Rwt-34216:33 Influenza A&B Viral Comments: PATIENT NOT FASTINGPERFORMED BY: [facility] RehabilitationIrqbih4953 [facility] [id number] Information: SRC:NL Culture (24800) Viral Culture,Rapid,Influenza FLUABN (Normal) Comments: Negative:No Influenza A or B detected. 79-Frf-047896:38 Blood Glucose , Office (68888) Blood Glucose , Office 123 (Normal) 58-Mnv-563587:04 Basic Metabolic Profile (BMP) Comments: [facility] [address] [place], [place], [address] GAP 10 (Normal) Range: 5-15 CO2 24.0 [...] A.D.A. criteria.Please note revised GLUCOSE reference range nodxuvxcz80/02/2018. 02-Chi-724138:04 Microalb:Creat Ratio,Random UR Comments: [facility] [address]rlvh66[address] [facility]. [place], [place], [address] MALB:CREAT 2009.4 {mg/g_CRE} (Abnormal) MICROALBUMIN,UR 2150.0 mg/L (Normal) UR CREAT 107.00 mg/dL (Normal) 45-Ujg-869256:08 Basic Metabolic Profile (BMP) Comments: [facility] Xfxttqfnue8853 [facility] [address] [place], [place], [address] GAP 7 (Normal) Range: 5-15 CO2 26.0 [...] 7-18 GLU 92 mg/dL (Normal) Range: 70-110 15-Nab-089103:08 CBC W/Diff, Automated Comments: [facility] [address] [place], [address] Absolute Lymph 2.98 {X10_3/ul} (Normal) Range: 0.83-4.51 [...] 4.2-5.4 WBC 8.3 K/mm3 (Normal) Range: 4.4-11.0 59-Moz-946936:08 CPK Total, Creatine Kinase Comments: [facility] [address] [place], [address] CPK TOTAL 79 U/L (Normal) Range: 26-192 34-Fef-317381:46 URINE BEULAH CULTURE-IDENTIFICATN Comments: PATIENT NOT FASTINGPERFORMED BY: [facility] Remrbw0870 [facility] [id number] Information: SRC:ALEISHA (65146) Result 2 BETAGB (Abnormal) Comments: Beta hemolytic [...] per mL (Abnormal) Urine Final report (Abnormal) Culture,[facility] flora 41-Pns-317391:49 Urinalysis, Office (91831) UA - LEUKOCYTE ESTERASE Negative (Normal) UA - NITRITE Negative (Normal) URINE UROBILINGN GENNA TIMED Normal mg/dL (Normal) UA - PROTEIN 300 mg/dL (Normal) UA - PH 7.5 (Normal) UA - BLOOD Non Hemolyzed Moderate (Normal) UA - SPECIFIC GRAVITY 1.025 (Normal) UA - KETONES Negative mg/dL (Normal) UA - BILIRUBIN Negative (Normal) UA - GLUCOSE Negative (Normal) 94-Qke-579621:24 TSH (22571) Comments: PATIENT WAS FASTINGPERFORMED BY: [facility]UN[facility] CenterGvprem0349 [facility] [id number] TSH 1.790 {uIU/mL} (Normal) Range: 0.450-4.500 93-Vgk-379880:24 METABOLIC PANEL, COMPREHENSIVE Comments: PATIENT WAS FASTINGPERFORMED BY: [facility] Eaawyu8298 [facility] [id number] (60741) ALT (SGPT) 37 [iU]/L (Abnormal) Range: 0-32 [...] Glucose, Serum 99 mg/dL (Normal) Range: 65-99 82-Zqa-189377:24 CBC W/AUTO DIFF WBC (73324) Comments: PATIENT WAS FASTINGPERFORMED BY: [facility] SquaredKessler Institute for RehabilitationCssuta2028 [facility] [id number] Immature Grans (Abs) 0.0 {x10E3/uL} (Normal) Range: [...] 3.77-5.28 WBC 9.4 {x10E3/uL} (Normal) Range: 3.4-10.8 15-Wpe-743904:24 LIPID PANEL (04273) Comments: PATIENT WAS FASTINGPERFORMED BY: LabCoKessler Institute for RehabilitationXbjkbb4482 [facility] [id number] LDL/HDL Ratio 1.8 {ratio_units} (Normal) Range: 0.0-3.2 Comments: LDL/HDL Ratio Men Women 1/2 Avg.Risk 1.0 1.5 Av g.Risk 3.6 3.2 2X Avg.Risk 6.2 5.0 3X Avg.Risk 8.0 6.1 LDL Cholesterol Calc 75 mg/dL (Normal) Range: 0-99 VLDL Cholesterol Juliocesar 52 mg/dL (Abnormal) Range: 5-40 HDL Cholesterol 42 mg/dL (Normal) Triglycerides 258 mg/dL (Abnormal) Range: 0-149 Cholesterol, Total 169 mg/dL (Normal) Range: 100-199 37-Gky-943489:24 CALCIFEDIOL (94376) Comments: PATIENT WAS FASTINGPERFORMED BY: [facility]CoKessler Institute for RehabilitationOwxjin2795 [facility] [id number] Vitamin D, 25-Hydroxy 44.2 ng/mL (Normal) Range: 30.0-100.0 Comments: Vitamin D deficiency has been defined by the [place] ofMedicine and an Endocrine Society practice guideline as alevel of serum 25-OH vitamin D less than 20 ng/mL (1,2).The Endocrine Society went on to further define vitamin Dinsufficiency as a level between 21 and 29 ng/mL (2).1. IOM ([place] of Medicine). 2010. Dietary reference intakes for calcium and D. [place]: The National Academies Press.2. Miles MF, Tri MITCHELL, Juan Francisco SHEETS, et al. Evaluation, treatment, and prevention of vitamin D deficiency: an Endocrine Society clinical practice guideline. JCEM. 2010; 96(7):1911-30. 39-Khv-752136:15 HgA1C , Office (19292) HgA1C , Office 6.0 % (Normal) Range: 4.6 - 7.1 98-Jxc-408714:15 Blood Glucose , Office (84907) Blood Glucose , Office 103 (Normal) 10-Feb-20179:45 Bedside Glucose Comments: [facility] LaboratoryPoint of [address] [place] [address] BEDSIDE GLU 134 mg/dL (Abnormal) Range: 70-110 Comments: MANAGEMENT OF PATIENT CARE PER NURSING PROTOCOL 99-Jjl-493343:04 ANCA Comments: Is Patient Fasting? [facility] (refer [...] up testing of positive sera with both ND-3 and MPO- ANCA enzyme immunoassays. As many as 5% serumsamp les are positive only by EIA. Ref. AM J Clin Ozmkbp8078;111:507-513. CYTOPLASMIC Ab <1:20 {titer} (Normal) 98-Doz-015191:04 Anti-dsDNA Ab Comments: [facility] (refer to report for specific site)refer to report for address and phone number dsDNA AB <1 {IU/mL} (Normal) Range: 0-9 Comments: Negative <5 Equivocal 5 - 9 Positive >9Performed at: [facility]Co[address] [id number] D irector: Jonathan Khan PhD, Phone: [phone] 40-Hxp-390810:04 Basic Metabolic Profile (BMP) Comments: PLEASE ADD BMP TO BLOOD FROM [facility] [address] [place], [address] GAP 8 (Normal) Range: 5-15 [...] 126 mg/dLsuggests DIABETES MELLITUS per A.D.A. criteria. 21-Fca-901956:04 CBC W/Diff, Automated Comments: [facility] [address] [place], [address] Absolute Lymph 2.35 {X10_3/ul} (Normal) Range: 0.83-4.51 [...] 4.2-5.4 WBC 10.2 K/mm3 (Normal) Range: 4.4-11.0 85-Ijr-247349:04 Complement C3 Comments: Is Patient Fasting? [facility] (refer to report for specific site)refer to report for address and phone number COMP C3 187 mg/dL (Abnormal) Range: 82-167 Comments: Performed at: [address] [id number] Director: Jonathan Khan PhD, Phone: [phone] 81-Odk-437710:04 Complement C4 Comments: Is Patient Fasting? [facility] (refer to report for specific site)refer to report for address and phone number COMP C4 24 mg/dL (Normal) Range: 14-44 58-Cle-723705:04 SHAYLEE + Protein Elect, Serum Comments: Is Patient Fasting? [facility] (refer to report for specific site)refer to report for address and phone number NOTE: Comment (Normal) Comments: Protein electrophoresis scan will follow via computer,mail, or lieutenant general delivery. SHAYLEE RESULT,S Comment (Normal) Comments: No monoclonality detected. A/G RATIO 1.1 (Normal) Range: 0.7-1.7 GLOBULIN, TOTAL 2.9 g/dL (Normal) Range: 2.2-3.9 M-SPIKE g/dL (Normal) Comments: Not Observed GAMMA GLOBULIN 0.7 g/dL (Normal) Range: 0.4-1.8 BETA GLOBULIN 1.0 g/dL (Normal) Range: 0.7-1.3 XPMRI-4-MSYZ 1.0 g/dL (Normal) Range: 0.4-1.0 YZISM-5-TGCB 0.2 g/dL (Normal) Range: 0.0-0.4 ALBUMIN 3.1 g/dL (Normal) Range: 2.9-4.4 IMMUNOGL M 94 mg/dL (Normal) Range: 26-217 IMMUNO A 204 mg/dL (Normal) Range: 87-352 IMMUNO G 703 mg/dL (Normal) Range: 700-1600 PROTEIN,TOTAL 6.0 g/dL (Normal) Range: 6.0-8.5 34-Vgt-117178:04 Partial Thromboplast Time Comments: [facility] [address] [place], [place], [id number] PTT 23.1 s (Abnormal) Range: 24.1-36.2 32-Knp-705302:04 Protein+Creatinine Ratio,Urine Comments: [facility] [address] [place], [address] PROT:CRE RATIO 1806 {mg/g_CRE} (Abnormal) Range: 0-200 PROTEIN,UR.RAN. 209.5 mg/dL (Abnormal) UR CREAT 116.00 mg/dL (Normal) 92-Okl-103534:04 Prothrombin Time w/INR Comments: [facility] [address] [place], [place], [id number] INR 1.0 (Normal) PROTIME 12.7 s (Normal) Range: 11.7-14.9 59-Adn-232286:00 Basic Metabolic Profile (BMP) Comments: [facility] [address] [place], [address] GAP 9 (Normal) Range: 5-15 CO2 24.0 [...] 126 mg/dLsuggests DIABETES MELLITUS per A.D.A. criteria. 97-Ixh-563325:00 Magnesium Comments: [facility] [address] [place], [place], [address] MG 2.0 mg/dL (Normal) Range: 1.8-2.4 11-Dvg-967540:47 HGB A1C (76950) Comments: PATIENT NOT FASTINGPERFORMED BY: LabCoKessler Institute for RehabilitationSglpxe8974 [facility] [id number] Hemoglobin A1c 6.2 % (Abnormal) Range: 4.8-5.6 Comments: . Pre-diabetes: 5.7 - 6.4 Diabetes: >6.4 Glycemic control for adults with diabetes: <7.0 88-Oeo-314747:54 Basic Metabolic Profile (BMP) Comments: [facility] [address] [place], [place], [address] GAP 7 (Normal) Range: 5-15 CO2 24.0 [...] 126 mg/dLsuggests DIABETES MELLITUS per A.D.A. criteria. 36-Faa-194821:54 Microalb:Creat Ratio,Random UR Comments: [facility] [address] [place], [address] MALB:CREAT 3622.4 {mg/g_CRE} (Abnormal) MICROALBUMIN,UR 1880.0 mg/L (Normal) UR CREAT 51.90 mg/dL (Normal) 85-Uxi-730049:30 CDIFF (Molecular) Comments: [facility] [address] [place], [address] CDIFF See Note (Normal) Comments: Cdiff-MolecularNormal Reference Range = Negative C. Diff DNA Negative- No toxigenic C. Diff DNA DetectedNAAT METHOD Testing was performed using nucleic acid amplification 1-Sne-377454:47 Bedside Glucose Comments: [facility] LaboratoryPoint of [address] [place] [address] BEDSIDE GLU 124 mg/dL (Abnormal) Range: 70-110 Comments: MANAGEMENT OF PATIENT CARE PER NURSING PROTOCOL :39 Partial Thromboplast Time Comments: [facility] [address] [place], [address] PTT 25.9 s (Normal) Range: 24.1-36.2 :39 Prothrombin Time w/INR Comments: [facility] [address] [place], [address] INR 1.1 (Normal) PROTIME 14.2 s (Normal) Range: 11.7-14.9 :23 Basic Metabolic Profile (BMP) Comments: [facility] [address] [place], [address] GAP 8 (Normal) Range: 5-15 CO2 [...] per A.D.A. criteria. :23 Lactic Acid Comments: [facility] [address] [place], [id number] LACTIC ACID 1.4 mmol/L (Normal) Range: 0.4-2.0 : KIDNEY BIOPSY See Note (Normal) Comments: [facility] [address] [place], [address] 20 Comments: Patient: JANIS ZAPATA : 1970 (46/F) Acct Num: [id number] Phys: Vibha Larson M.D. Unit Num: [id number] Loc: CT Specimen: [id number] Received: 09/17/16 - 1040 Spec Ty pe: [...] DESCRIPTION The specimen is sent [facility]. The specimen is received in ansport medium and consists of three cores of [...] singleglo merulus with segmental glomerulitis. Signed [facility] 09/23/16 <signature on file> 14-Ema-496437:21 D-Dimer Quantitative (DVT/PE) Comments: [facility] [address] [facility] [address] [place], [place], [address] D-DIMER QUANT 0.35 {FEU/ug/m} (Normal) Range: 0.27-0.49 Comments: NORMAL D-Dimer level (<0.50) indicates no DVT or PE. 34-Axn-983161:33 Basic Metabolic Profile (BMP) Comments: 'TROP' Serial specimen #1, #2, #3, or #4: [facility] Krychivolb6619 [facility] [place], [place], [address] GAP 11 (Normal) Range: 5-15 CO2 26.0 [...] 126 mg/dLsuggests DIABETES MELLITUS per A.D.A. criteria. 28-Rnj-401516:33 CBC W/Diff, Automated Comments: [facility] [address] [place], [address] Absolute Lymph 2.32 {X10_3/ul} (Normal) Range: 0.83-4.51 [...] 4.2-5.4 WBC 10.3 K/mm3 (Normal) Range: 4.4-11.0 71-Wen-964004:33 Troponin-I Comments: 'TROP' Serial specimen #1, #2, #3, or #4: [facility] [address] [place], [address] TROPONIN-I < 0.02 ng/mL (Normal) Comments: TROPONIN-I EXPECTED VALUES <0.05 NEGATIVE 0.06 - 0.59 AT RISK OF CO > OR = 0.60 SUGGEST CO 06-Axx-39175:00 Creatinine, Urine (random) Comments: [facility] [address] [place], [address] UR CREAT 91.10 mg/dL (Normal) 24-Aws-86790:00 Microalbumin,Random Urine Comments: [facility] [address] [place], [address] MICROALBUMIN,UR 5320.0 mg/L (Normal) 29-Rxj-05458:00 Protein, Urine (Random) Comments: [facility] [address] [place], [address] PROTEIN,UR.RAN. 689.0 mg/dL (Abnormal) 37-Gqu-81649:00 Urinalysis, Routine (Dipstick) Comments: How was Urine Obtained? [facility] [address] [place], [address] LEUK ESTERASE 25 /ul (Abnormal) OCCULT BLOOD-UR 150 /ul (Abnormal) NITRITE UR Negative (Normal) UROBILI Normal mg/dL (Normal) PROT DIPSTX 500 mg/dL (Abnormal) pH UR 8.0 (Normal) Range: 5.0 - 8.0 SP.GR. DIPSTX 1.015 (Normal) Range: 1.002-1.030 KETONE UR Negative mg/dL (Normal) BILIRUBIN URINE Negative mg/dL (Normal) GLUCOSE, UR Normal mg/dL (Normal) CLARITY Clear (Normal) COLOR Yellow (Normal) 48-Cpq-530131:08 24 HR UR Creatinine Clearance Comments: [facility] [address] [place], [address] CREAT CLEARANCE 94 ml/min (Abnormal) Range: 100-200 URINE CREAT 113.0 mg/dL (Normal) EST GFR - AA 84 mL/min (Normal) Comments: GFR Calc EST GFR 69 mL/min (Normal) Comments: Non- GFR Calc SERUM CREAT 0.9 mg/dL (Normal) Range: 0.6-1.0 UR TOTAL VOLUME 1100 mL (Normal) UR COLLECT TIME 24.0 {HOURS} (Normal) 34-Vby-004835:48 AFP, Tumor Marker Comments: Is Patient Fasting? NIs Patient ? [facility] (refer to report for specific site)refer to report for address and phone number AFP TUMOR 2253 2.8 ng/mL (Normal) Range: 0.0-8.3 Comments: Jai ECLIA methodology 85-Qjk-294662:48 ANCA Comments: Is Patient Fasting? NIs Patient [...] up testing of positive sera with both ND-3 and MPO- ANCA enzyme immunoassays. As many as 5% serumsamp les are positive only by EIA. Ref. AM J Clin Myuukq2413;111:507-513. CYTOPLASMIC Ab <1:20 {titer} (Normal) 20-Ydg-867575:48 Anti-dsDNA Ab Comments: [facility] (refer to report for specific site)refer to report for address and phone number dsDNA AB <1 {IU/mL} (Normal) Range: 0-9 Comments: Negative <5 Equivocal 5 - 9 Positive >9Performed at: [facility] [id number] D irector: Jonathan Khan PhD, Phone: [phone] 75-Pkf-392986:48 CBC W/Diff, Automated Comments: [facility] [address] [place], [address] Absolute Lymph 2.85 {X10_3/ul} (Normal) [...] 4.2-5.4 WBC 10.3 K/mm3 (Normal) Range: 4.4-11.0 93-Olx-615775:48 Complement C3 Comments: Is Patient Fasting? NIs Patient ? [facility] (refer to report for specific site)refer to report for address and phone number COMP C3 205 mg/dL (Abnormal) Range: 82-167 Comments: Performed at: - [facility] [id number] Director: Jonathan Khan PhD, Phone: [phone] 30-Utx-636577:48 Complement C4 Comments: Is Patient Fasting? NIs Patient ? [facility] (refer to report for specific site)refer to report for address and phone number COMP C4 28 mg/dL (Normal) Range: 14-44 15-Lzw-289282:48 SHAYLEE + Protein Elect, Serum Comments: Is Patient Fasting? NIs Patient ? [facility] (refer to report for specific site)refer to report for address and phone number NOTE: Comment (Normal) Comments: Protein electrophoresis scan will follow via computer,mail, or lieutenant general delivery. SHAYLEE RESULT,S Comment (Normal) Comments: No monoclonality detected. A/G RATIO 0.9 (Normal) Range: 0.7-1.7 GLOBULIN, TOTAL 3.2 g/dL (Normal) Range: 2.2-3.9 M-SPIKE g/dL (Normal) Comments: Not Observed GAMMA GLOBULIN 0.6 g/dL (Normal) Range: 0.4-1.8 BETA GLOBULIN 1.1 g/dL (Normal) Range: 0.7-1.3 UHNIA-6-SAED 1.2 g/dL (Abnormal) Range: 0.4-1.0 DDCJI-5-GAOR 0.3 g/dL (Normal) Range: 0.0-0.4 ALBUMIN 2.6 g/dL (Abnormal) Range: 2.9-4.4 IMMUNOGL M 77 mg/dL (Normal) Range: 26-217 IMMUNO A 213 mg/dL (Normal) Range: 87-352 IMMUNO G 558 mg/dL (Abnormal) Range: 700-1600 PROTEIN,TOTAL 5.8 g/dL (Abnormal) Range: 6.0-8.5 :48 Partial Thromboplast Time Comments: [facility] [address] [facility] [place], [place], [address] PTT 26.9 s (Normal) Range: 24.1-36.2 :48 Prothrombin Time w/INR Comments: [facility] [address] [facility] [address] [place], [place], [address] INR 1.0 (Normal) PROTIME 12.6 s (Normal) Range: 11.7-14.9 81-Yzf-701228:27 HgA1C , Office (87488) HgA1C , Office 6.1 % (Normal) Range: 4.6 - 7.1 :27 Blood Glucose , Office (35688) Blood Glucose , Office 104 (Normal) 6-Kvv-077662:10 Microscopic Examination Comments: PATIENT WAS FASTINGPERFORMED BY: [facility]6370 [facility] [id number] Bacteria Few (Normal) Mucus Threads Present (Normal) Cast Type Hyaline casts (Normal) Casts Present {/lpf} (Abnormal) Epithelial Cells (non renal) 0-10 {/hpf} (Normal) Range: 0 - 10 RBC >30 {/hpf} (Abnormal) Range: 0 - 2 WBC 6-10 {/hpf} (Abnormal) Range: 0 - 5 9-Hfy-526924:10 URINALYSIS, W/ MICRO (48609) Comments: PATIENT WAS FASTINGPERFORMED BY: [employer] [facility] [id number] Microscopic Examination See below: (Normal) Comments: Microscopic was indicated and was performed. Nitrite, Urine Negative (Normal) Urobilinogen,Semi-Qn 0.2 mg/dL (Normal) Range: 0.2-1.0 Bilirubin Negative (Normal) Occult Blood 2+ (Abnormal) Ketones Negative (Normal) Glucose Negative (Normal) Protein 4+ (Abnormal) WBC Esterase Negative (Normal) Appearance Clear (Normal) Urine-Color Yellow (Normal) pH 7.0 (Normal) Range: 5.0-7.5 Specific Welling 1.026 (Normal) Range: 1.005-1.030 7-Elc-991729:10 MICROALBUMIN: CREATININE RATIO Comments: PATIENT WAS FASTINGPERFORMED BY: [employer] [facility] [id number] (02216) AND (12371) Microalb/Creat Ratio 4548.7 {mg/g_creat} (Abnormal) Range: 0.0-30.0 Microalbumin, Urine 5463.0 ug/mL (Normal) Comments: Results confirmed ondilution. Creatinine, Urine 120.1 mg/dL (Normal) 8-Kcx-751601:10 METABOLIC PANEL, COMPREHENSIVE Comments: PATIENT WAS FASTINGPERFORMED BY: [employer] [facility] [id number] (09621) ALT (SGPT) 42 [iU]/L (Abnormal) Range: 0-32 [...] Glucose, Serum 94 mg/dL (Normal) Range: 65-99 0-Yxc-894120:10 CBC W/AUTO DIFF WBC (31272) Comments: PATIENT WAS FASTINGPERFORMED BY: [facility] Uubmjd9564 [facility] [id number] Immature Grans (Abs) 0.0 {x10E3/uL} (Normal) Range: [...] 3.77-5.28 WBC 12.2 {x10E3/uL} (Abnormal) Range: 3.4-10.8 7-Bhu-970587:10 LIPID PANEL (14105) Comments: PATIENT WAS FASTINGPERFORMED BY: [employer]LO [facility] [id number] LDL/HDL Ratio 3.1 {ratio_units} (Normal) Range: 0.0-3.2 Comments: LDL/HDL Ratio Men Women 1/2 Avg.Risk 1.0 1.5 Av g.Risk 3.6 3.2 2X Avg.Risk 6.2 5.0 3X Avg.Risk 8.0 6.1 LDL Cholesterol Calc 131 mg/dL (Abnormal) Range: 0-99 VLDL Cholesterol Juliocesar 66 mg/dL (Abnormal) Range: 5-40 HDL Cholesterol 42 mg/dL (Normal) Triglycerides 331 mg/dL (Abnormal) Range: 0-149 Cholesterol, Total 239 mg/dL (Abnormal) Range: 100-199 8-Vkf-421166:10 HEPATIC FUNCTION PANEL Comments: PATIENT WAS FASTINGPERFORMED BY: [employer] [facility] [id number] (53460) Bilirubin, Direct 0.07 mg/dL (Normal) Range: 0.00-0.40 0-Omo-136675:58 URINE BEULAH CULTURE-IDENTIFICATN Comments: PATIENT NOT FASTINGPERFORMED BY: [employer] [facility] [id number] Information: SRC: ([id number]) Antimicrobial MIHEAD (Normal) Comments: S = Susceptible; [...] mL (Abnormal) Urine Final report Culture,Comprehensive (Abnormal) 9-Mqc-579107:26 Rapid Flu (96454 x 2) Comments: neg Influenza A Ag negative (Normal) 0-Aiu-920555:23 Urinalysis, Office (50063) UA - LEUKOCYTE ESTERASE Trace (Normal) UA - NITRITE Negative (Normal) URINE UROBILINGN GENNA TIMED Normal mg/dL (Normal) UA - PROTEIN 300 mg/dL (Normal) UA - PH 6 (Abnormal) UA - BLOOD Hemolyzed Large (Normal) UA - SPECIFIC GRAVITY 1.015 (Normal) UA - KETONES Negative mg/dL (Normal) UA - BILIRUBIN Negative (Normal) UA - GLUCOSE Negative (Normal) 8-Jdi-808505:02 Bedside Glucose Comments: [facility] LaboratoryPoint of [address] [place], [place] [address], [place] [address] BEDSIDE GLU 105 mg/dL (Normal) Range: 70-110 Comments: No Action RequiredMANAGEMENT OF PATIENT CARE PER NURSING PROTOCOL 89-Uik-152857:49 TSH (38227) Comments: PATIENT NOT FASTINGPERFORMED BY: [facility] Lwtsmo4008 [facility] [id number] TSH 2.680 {uIU/mL} (Normal) Range: 0.450-4.500 91-Aja-835369:49 T4, FREE (THYROXINE) (12990) Comments: PATIENT NOT FASTINGPERFORMED BY: [facility] Iddnvp7876 [facility] [id number] T4,Free(Direct) 0.86 ng/dL (Normal) Range: 0.82-1.77 68-Dgj-732972:49 T3, FREE (TRIDOTHYRONINE) (53374) Comments: PATIENT NOT FASTINGPERFORMED BY: [employer] Tfbmnv8684 m2M StrategiesFormerly [facility], [facility] [id number] Triiodothyronine,Free,Serum 3.0 pg/mL (Normal) Range: 2.0-4.4 :52 URINE BEULAH CULTURE-IDENTIFICATN Comments: PATIENT NOT FASTINGPERFORMED BY: [employer]6370 [facility] [id number] Information: SRC: ([id number]) Result 1 ECV (Abnormal) Comments: Escherichia coli, [...] report Culture,Comprehensi (Abnormal) ve :26 Urinalysis, Office (88274) UA - LEUKOCYTE ESTERASE Negative (Normal) UA - NITRITE Positive (Normal) URINE UROBILINGN GENNA TIMED Normal mg/dL (Normal) UA - PROTEIN 300 mg/dL (Normal) UA - PH 7 (Normal) UA - BLOOD Hemolyzed Large (Normal) UA - SPECIFIC GRAVITY 1.020 (Normal) UA - KETONES Negative mg/dL (Normal) UA - BILIRUBIN Negative (Normal) UA - GLUCOSE Negative (Normal) 57-Cpd-295319:13 TSH (THYROID STIMULATING Comments: PATIENT WAS FASTINGPERFORMED BY: [employer] Zqyjsm0696 [facility] [id number] HORMONE) (73517) TSH 5.150 {uIU/mL} (Abnormal) Range: 0.450-4.500 :13 CALCIFEDIOL (25320) Comments: PATIENT WAS FASTINGPERFORMED BY: Genetics SquaredKessler Institute for RehabilitationBuvvvw7193 [facility] [id number] Vitamin D, 25-Hydroxy 14.9 ng/mL (Abnormal) Range: 30.0-100.0 Comments: Vitamin D deficiency has been defined by the [place] ofKettering Health Daytoncine and an Endocrine Society practice guideline as alevel of serum 25-OH vitamin D less than 20 ng/mL (1,2).The Endocrine Society went on to further define vitamin Dinsufficiency as a level between 21 and 29 ng/mL (2).1. IOM ([place] of Medicine). 2010. Dietary reference intakes for calcium and D. [place]: The National Academies Press.2. Miles MF, Tri MITCHELL, Juan Francisco SHEETS, et al. Evaluation, treatment, and prevention of vitamin D deficiency: an Endocrine Society clinical practice guideline. JCEM. 2010; 96(7):1911-30. 48-Ksd-772757:13 METABOLIC PANEL, COMPREHENSIVE Comments: PATIENT WAS FASTINGPERFORMED BY: sellpointsCoKessler Institute for RehabilitationVwogmh3317 [facility] [id number] (50177) ALT (SGPT) 30 [iU]/L (Normal) Range: 0-32 [...] Glucose, Serum 107 mg/dL (Abnormal) Range: 65-99 35-Bco-320903:13 LIPID PANEL (76710) Comments: PATIENT WAS FASTINGPERFORMED BY: [facility] [id number] LDL/HDL Ratio 3.2 {ratio_units} (Normal) Range: 0.0-3.2 Comments: LDL/HDL Ratio Men Women 1/2 Avg.Risk 1.0 1.5 Av g.Risk 3.6 3.2 2X Avg.Risk 6.2 5.0 3X Avg.Risk 8.0 6.1 LDL Cholesterol Calc 158 mg/dL (Abnormal) Range: 0-99 VLDL Cholesterol Juliocesar 65 mg/dL (Abnormal) Range: 5-40 HDL Cholesterol 50 mg/dL (Normal) Triglycerides 327 mg/dL (Abnormal) Range: 0-149 Cholesterol, Total 273 mg/dL (Abnormal) Range: 100-199 13-Dik-187385:13 CBC with auto diff (88710) Comments: PATIENT WAS FASTINGPERFORMED BY: [employer]6370 [facility]GoD[facility] Hospital [id number] Immature Grans (Abs) 0.0 {x10E3/uL} (Normal) Range: [...] 3.77-5.28 WBC 9.2 {x10E3/uL} (Normal) Range: 3.4-10.8 27-Qep-639566:13 HGB A1C (43977) Comments: PATIENT WAS FASTINGPERFORMED BY: [facility]TheraD[facility] [id number] Hemoglobin A1c 6.4 % (Abnormal) Range: 4.8-5.6 Comments: . Pre-diabetes: 5.7 - 6.4 Diabetes: >6.4 Glycemic control for adults with diabetes: <7.0 81-Uzu-98483:10 Urinalysis, Office (11372) UA - LEUKOCYTE ESTERASE Negative (Normal) UA - NITRITE Negative (Normal) URINE UROBILINGN GENNA TIMED Normal mg/dL (Normal) UA - PROTEIN 300 mg/dL (Normal) UA - PH 7 (Normal) UA - BLOOD Hemolyzed Large (Normal) UA - SPECIFIC GRAVITY 1.025 (Normal) UA - KETONES Negative mg/dL (Normal) UA - BILIRUBIN Negative (Normal) UA - GLUCOSE Negative (Normal) 83-Ivp-456174:28 URINE BEULAH CULTURE-IDENTIFICATN Comments: PATIENT NOT FASTINGPERFORMED BY: ResilincUNM Cancer CenterUkahdc3500 Magana [facility] HospitalCommon Interest CommunitiesDuke [facility] Hospital [id number] Information: SRC:ALEISHA ([id number]) Result 1 ECV (Abnormal) Comments: Escherichia coli, [...] S Urine Final report Culture,Comprehensi (Abnormal) ve 12-Ooh-216084:37 Urinalysis, Office (98516) UA - LEUKOCYTE ESTERASE Trace (Normal) UA - NITRITE Negative (Normal) URINE UROBILINGN GENNA TIMED Normal mg/dL (Normal) UA - PROTEIN 300 mg/dL (Normal) UA - PH 8.5 (Normal) UA - BLOOD Hemolyzed Large (Normal) UA - SPECIFIC GRAVITY 1.020 (Normal) UA - KETONES Negative mg/dL (Normal) UA - BILIRUBIN Negative (Normal) UA - GLUCOSE Negative (Normal) [id number] Culture, Aerobic, Comments: PATIENT NOT FASTINGPERFORMED BY: [facility] [id number] [facility] [id number] Information: LEFT LEG SRC:FL Bacterial ID ([id number]) Antimicrobial MIHEAD (Normal) Comments: S = Susceptible; [...] Final report (Abnormal) Culture :48 HGB A1C ([id number]) Comments: PERFORMED BY: [facility] [id number] [facility] [id number] Hemoglobin A1c 6.3 % (Abnormal) Range: 4.8-5.6 Comments: . Pre-diabetes: 5.7 - 6.4 Diabetes: >6.4 Glycemic control for adults with diabetes: <7.0 :46 TSH ([id number]) Comments: PATIENT NOT FASTINGPERFORMED BY: [facility] [id number] [facility] [id number] TSH 2.910 {uIU/mL} (Normal) Range: 0.450-4.500 :46 CBC WITH MANUAL DIFF ([id number]) Comments: PATIENT NOT FASTINGPERFORMED BY: [facility] [id number] [facility] [id number] Immature Grans (Abs) 0.0 {x10E3/uL} (Normal) Range: [...] 3.77-5.28 WBC 10.3 {x10E3/uL} (Normal) Range: 3.4-10.8 15-Grm-952334:46 Metabolic Panel, Basic Comments: PATIENT NOT FASTINGPERFORMED BY: [facility]CoK[facility] [id number] [facility] [id number] ([id number]) Calcium, Serum 8.6 mg/dL (Abnormal) Range: 8.7-10.2 [...] typeII,controlled, renal comp Pulmonary hypertension : Reviewed Skin Care Instructor Letter Indication: Pulmonary hypertension Glomerulonephritis, IgA : Reviewed Skin Care Instructor Letter Indication: Glomerulonephritis, IgA Hyperlipidemia, mild : [...] Indication: Hypertension Proteinuria, unspecified type : Reviewed Skin Care Instructor Letter Indication: Proteinuria, unspecified type Diabetes typeII,controlled, [...] Pulmonary hypertension, mild Glomerulonephritis, IgA : Reviewed Skin Care Instructor Letter Indication: Glomerulonephritis, IgA Hypertension : Continue [...] Flags Indication: Hypertension Glomerulonephritis, IgA : Reviewed Skin Care Instructor Letter Indication: Glomerulonephritis, IgA Controlled type 2 diabetes mellitus without complication : *Diabetes Education Indication: Controlled type 2 diabetes mellitus without complication Fatty liver : Diet, Exercise, and Wt loss Indication: Fatty liver Abscess of buttock : Reviewed Skin Care Instructor Letter- Dr Eng Indication: Abscess of buttock Pulmonary hypertension, mild : Reviewed Diagnostic Tests Indication: Pulmonary hypertension, mild Glomerulonephritis, IgA : Reviewed Skin Care Instructor Letter Indication: Glomerulonephritis, IgA Hypertension : Continue Current Prescription(s) Indication: Hypertension Hypertension : HTN/CAD Red Flags Indication: Hypertension Chronic obstructive asthma with acute exacerbation (Renamed from Chronic obstructive asthma with exacerbation) : Reviewed Skin Care Instructor Letter Indication: Chronic obstructive asthma with acute [...] dvt Indication: Edema extremities Planned Observations CALCIFEDIOL (75811)Indication: Vitamin D deficiency On: :49 Request T4, FREE (THYROXINE) (97839)Indication: Adult hypothyroidism On: :49 Request T3, FREE (TRIDOTHYRONINE) (41498)Indication: Adult hypothyroidism On: :49 Request TSH ([id number])Indication: Adult hypothyroidism On: :48 Request URINALYSIS, W/ MICRO (67916)Indication: Diabetes typeII,controlled, renal comp On: :48 Request MICROALBUMIN: CREATININE RATIO (89224) AND (63567)Indication: Diabetes typeII,controlled, renal comp On: :48 Request LIPOPROTEIN, BLD, BY NMR ([id number])Indication: Diabetes typeII,controlled, renal comp On: :48 Request METABOLIC PANEL, COMPREHENSIVE (11020)Indication: Diabetes typeII,controlled, renal comp On: :48 Request CBC W/AUTO DIFF WBC (91120)Indication: Diabetes typeII,controlled, renal comp On: :48 Request HGB A1C (17590)Indication: Diabetes typeII,controlled, renal comp On: :47 Request Comments: do in -january HGB A1C (20052)Indication: Diabetes typeII,controlled, renal comp On: :47 Request Comments: now METABOLIC PANEL, COMPREHENSIVE (19167)Indication: Itch of skin On: 20-Zot-966759:29 Request URINALYSIS, W/ MICRO (06801)Indication: Hypertension On: :39 Request MICROALBUMIN: CREATININE RATIO ([id number]) AND (66089)Indication: Hypertension On: :39 Request CALCIFEDIOL (50757)Indication: Vitamin D deficiency On: :26 Request URINALYSIS, W/ MICRO (31121)Indication: Hypertension On: : Request MICROALBUMIN: CREATININE RATIO (89784) AND (61097)Indication: Hypertension On: : Request METABOLIC PANEL, COMPREHENSIVE (34948)Indication: Hypertension On: : Request CBC W/AUTO DIFF WBC (69094)Indication: Hypertension On: 98-Sxb-424487:22 Request LIPID PANEL (89678)Indication: Hyperlipidemia, mild On: 49-Omy-225436:21 Request TSH (76767)Indication: Adult hypothyroidism On: 46-Cpu-569753:21 Request TWIGI-XYEDBTFRHVE-SYPQF (36674)Indication: Fatty liver On: 98-Uou-462459:01 Request URINALYSIS (43744)Indication: Hematuria On: 03-Ysb-646317:56 Request MICROALBUMIN 24 HOUR OR RANDOM (54619)Indication: Other proteinuria On: 90-Mmj-677859:52 Request Comments: 24 hr for protein CREATININE CLEARANCE (14514)Indication: Other proteinuria On: 25-Hxa-404209:52 Request MICROALBUMIN: CREATININE RATIO (09951) AND (52284)Indication: Controlled type 2 diabetes mellitus without complication On: 71-Dzw-151568:28 Request Metabolic Panel, Basic (05105)Indication: Skin sore On: 31-Lmz-527325:22 Request Metabolic Panel, Basic (56416)Indication: Edema extremities On: 51-Geq-641768:19 Request Planned Encounters Medical; ACV RECHECK - On: 20-Apr-2018 10:45 [facility] Naomi Colunga DO, DO, Kathleen Planned Procedures PROLONGED PHYSICIAN SERVICE, OFFICE On: 15-Apr-2018 Intent (40961)By: Naomi Colunga DO, DO, Kathleen Aerosol Treatment ([id number])By: Cristine On: 15-Apr-2018 Naomi Collazo DO, DO, Kathleen Comments: lil looser more a/e but still tight- diffuse insp and exp noise but less inspir after aerosluse resuce inahler q2hr while awke for 24 hr then q 4hr wa CXR PA & LAT (75426)By: Cristine HAY, On: 15-Apr-2018 Intent Naomi Bautista DO Spirometry (68359)By: Cristine HAY, On: 15-Apr-2018 Intent Naomi Bautista DO Comments: severe obstruction -- O2 at rest 94% dn with ambulation 96% Rocephin Injection, 2 Gram On: 06-Feb-2018 Intent ([id number])By: Leticia Bernard DO Comments: lot: [id number]: ite/route: RGM and LGM (1 G given in each hip)amt: 2GVIS signed when applicableFAM Lowe US GALLBLADDER ([id number])By: Cristine On: 29-Dec-2017 Intent Naomi HAY DO, Kathleen Comments: attention CBD size -- h/o stent in past MAMMOGRAM BREAST BILATERAL On: 11-Dec-2017 Intent SCREENING DIGITAL (05011)By: Naomi Colunga DO, DO, Kathleen Flu Vaccine (Quadrivalent) 64899Wx: On: 10-Dec-2017 Intent Naomi Colunga DO, DO, Comments: Lot #[id number]/30/19Site-L dltd, IMDose prefilled syringegiven by:LINSEY Mcnulty reviewed and ABN signed Naomi X-RAY OF RIGHT HAND, TWO VIEWS On: 24-Sep-2017 Intent (76067)By: Naomi Colunga DO Comments: send results to dr valles as well Naomi Colunga DO Radiology - Hand - LeftBy: Cristine On: 24-Sep-2017 Intent Naomi HAY DO, Kathleen Comments: send results to dr valles as well THYROID ULTRASOUND ([id number])By: On: 25-Jun-2017 Intent Naomi Colunga DO, DO, Kathleen Spirometry (99570)By: Cristine HAY, On: 25-Jun-2017 Intent Naomi Bautista DO Comments: normal ELECTROCARDIOGRAM, COMPLETE (ECG) On: 25-Jun-2017 Intent ([id number])By: Naomi Colunga DO Comments: nsr no acute chg Naomi Colunga DO IV Needle placement (45808)By: On: 17-Jun-2017 Intent Rosaura Upton CNP INFUSION, NORMAL SALINE SOLUTION , On: 17-Jun-2017 Intent 1000 CC (Special Coverage Instructions Apply. See MCM: 2049) ([id number])By: Rosaura Upton CNP Phenergan Injection, up to 50 mg On: 17-Jun-2017 Intent ([id number])By: Rosaura Upton CNP Comments: 50mg given IM in left glut MeC Lot # [id number] exp Flu Vaccine (Quadrivalent) 95040De: On: 18-Dec-2016 Intent Naomi Colunga DO, DO, Comments: Lot:[id number]:09/22/17Amt:0.5mlRoute:IMSite: L DltdGiven By: LINSEY Bond signed Naomi SCREENING DIGITAL TOMOSYNTHESIS OF On: 05-Dec-2016 Intent BREAST (13710)By: Naomi Colunga DO, DO, Kathleen THYROID ULTRASOUND ([id number])By: On: 31-May-2016 Intent Naomi Colunga DO, DO, Kathleen Spirometry (03369)By: Cristine HAY, On: 25-Apr-2016 Intent Naomi Bautista DO Comments: good PNEUM VAC ADLT/IMUMNOSPR, SBC/INTRM On: 25-Apr-2016 Intent (46911)By: Naomi Colunga DO Comments: pneumovaxlot:[id number]:08/24/17ite:lt deltroute:IMdose:.5mlD.DASHA Kat DO, Kathleen ELECTROCARDIOGRAM, COMPLETE (ECG) On: 25-Apr-2016 Intent (06850)By: Naomi Colunga DO Comments: nsr no acute chg Naomi Colunga DO Flu Vaccine (Quadrivalent) 00841Tp: On: 24-Jan-2016 Intent Willy Kat Comments: FLUlot: [id number]:10/04/16site:Lt deltoidroute:IMdose:.5mlDASHA GONZALES Planned Medications INFUSION, NORMAL SALINE SOLUTION , 1000 CC Ordered: 17-Jun-2017 Pending Rsoaura Upton CNP INJECTION, CEFTRIAXONE SODIUM, PER 250 [...] with stage 1 chronic kidney disease, unspecified sales solutions associate insu vinnie use status, Folliculitis, Abnormal lung [...] with stage 1 chronic kidney disease, unspecified sales solutions associate insulin use status, Nutritional counseling, Rash Comprehensive [...] with stage 1 chronic kidney disease, unspecified sales solutions associate insulin use status, Skin sore, Nutritional counseling [...] typeII,controlled, renal comp (250.40), Glomerulonephritis, IgA End: 3-Shane-2018 15:51 [facility] Annotation/Addendum On: 08-Apr-2017 [...] Reason for ER visit: note: (was in [facility] hosp sat to [place] for [place] they did not say what [...] UTI's. I've seen Dr. Begum urologist in [place], but haven't seen him in awhile. Had [...] disease, Hypertension [facility] [employer] [facility] Yue Zapata; a guarantor
--- OUTSIDE RECORDS SUMMARY | 2018-06-27 05:43 | XMS RPT_ITS | Continuity of Care Document ---
:1970 Author Organization [facility] Address 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 old doc in [place] , on [facility] , Status: Active Urinary incontinence in female (R32, 788.30) Comments: multifactorial -- stress / obestiy/ mobility/ rx lasix/ Status: Active UTI (urinary tract infection) (N39.0, 599.0) Status: Active Vitamin D deficiency (E55.9, 268.9) Status: Active Medications Name Dates Details Aspirin [...] DO, DO, Kathleen Start : 17-Oct-2017 Active Sand Creek 5-325 MG Oral Tablet 1 bid prn pain (5-325 MG) Active ProAir HFA 108 (90 Base) MCG/ACT Inhalation Aerosol Solution 2 (two) Puff Puff tid prn for 0 days Quantity: 1 {Inhaler} Refills: 0 Ordered:07-Aug-2016 SkylarcarenReji Start : 07-Aug-2016 Active Synthroid 50 MCG [...] days Quantity: 1 {Box} Refills: 0 Ordered:16-Dec-2017 Analiliaphillipzaida BLACKWELLRosaura Start : 16-Dec-2017 Active Voltaren 1 % [...] days Quantity: 90 {Tablet} Refills: 3 Ordered:25-Apr-2016 Cristine HAY AndrésMauricio Naomi Start : 25-Apr-2016 End : 25-Apr-2016 Discontinued [...] gastritis --- thats what EGD showed in 2015 adn didnt do it Status: Inactive as [...] Comments: See Note; NOTES: [facility] [address] [place] [address] OFFICE VISIT Date of Service: 02/05/18 MR#: [id number] Acct: [id number] Name: JANIS PURVIS Rep #: [id number] : 1970 Provider: Albania Brenner Age/Sex: 47/F Location: [facility].PMW Status: Signed Assessment AND Plan 1. Moderate [...] cessation. You may call the free hotline 5-599-EFBTNOW. People who use this line are THREE [...] kidney failure and reports that recently her drain tiler took her off of her diuretics. 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: No Ac companied by: Family / [...] DAILY 08/31/16 [History Confirmed 02/05/18] Tiotr opium Bristol [Spiriva 18 MCG] 1 puff INHALATION DAILY [...] Spent - greater than 10 minutes: Yes (07961) 02/05/18 1425 <Electronically signed by Albania Brenner WOOD LAST MAKER-C> Date Gino Brenner WOOD LAST MAKER-C Cosigner Signature: Date (if applicable) CC: Naomi Colunga DO 02-Jan-2018 Pulmonary Function Report Comp Result: Comments: See Note; NOTES: [facility] Pulmonary Services/Neurology [address] [place] [address] MR#: [id number] Acct: [id number] Name: JANIS ZAPATA Rep #: [id number] : 0 1970 47 From: Say Rosa MD Referring Dr: Albania Brenner WOOD LAST MAKER Status: REG CLI Ordering Dr: Date: Location: [facility] Sex: F C COMPLETE PULMONARY FUNCTION TEST INTERPRETATION Brief HPI: Patient is a 47 year old female, currently under the care of Albania Brenner, who presents to [facility] for complete pulmonary function tests secondary [...] DO Date Dictated: 01/02/18605 Date Transcribed: 01/02/18605 Rubber Liner: CAREN Signed 05-Dec-2017 Emergency Department Summary Result: Comments: See Note; NOTES: [facility] Medical Records Department [address] [place] [address] Emergency Department Summary 12/05/17 0651 MR#: [id number] Acct: [id number] Name: JANIS ZAPATA Rep #: [id number] : 1970 47 From: Alvarez Vu PCP: [...] injections in the past. She is on [place] 1-2 ta bs at night. History of [...] pain This note was gene rated with Ziios dictation software. It may contain incorrect words, [...] Primar y Care Provider. Call [facility] ([phone]) or report to the closest Emergency Room. Call 911 if necessary. 12/05/17 0843 <Electronically signed by Alvarez Vu> Date __ Alvarez Vu Cosigner Signature (If Indicated): Date CC: Naomi Colunga DO 20-Oct-2017 Discharge Instruction Result: Comments: See Note; NOTES: [facility] Medical Records Department [address] [facility] [place] [address] Discharge Instruction 10/20/17 1410 MR#: [id number] Acct: [id number] Name: JANIS ZAPATA Rep #: [id number] : 1970 47 From: Estephania Shay MD [...] your Primary Care Provider. Call [facility] ([phone]) or report to the closest Emergency Room. Ca ll 911 if necessary. 10/20/17 1411 <Electronically signed by Estephania Shay MD> Date Estephania Shay MD Cosigner Signature (If Ind icated): Date CC: Naomi Colunga DO 20-Oct-2017 Discharge Instruction Result: Comments: See Note; NOTES: [facility] Medical Records Department [address] [place] [address] Discharge Instruction 10/20/17 1409 MR#: [id number] Acct: [id number] Name: JANIS ZAPATA Rep #: [id number] : 1970 47 From: Estephania Shay MD PCP: Naomi Colunga DO Status: [facility] ER ED Disposition - Plan [...] your Primary Care Provider. Call [facility] Registry ([phone]) or report to the closest Emergency Room. Ca ll 911 if necessary. 10/20/17 1410 <Electronically signed by Estephania Shay MD> Date Estephania Shay MD Cosigner Signature (If Ind icated): Date CC: Naomi Colunga DO 20-Oct-2017 Emergency Department Summary Result: Comments: See Note; NOTES: [facility] Medical Records Department [address] [place] [address] Emergency Department Summary 10/20/17 1009 MR#: [id number] Acct: [id number] Name: JANIS ZAPATA Rep #: [id number] : 1970 47 From: Estephania Shay MD [...] pain, constipation This note was generated with Ziios dictation software. It may contain incorrect words, [...] problems, contact your Primary Care Provider. Call [employer] Registry ([phone]) or report to the closest Emergency Room. Call 911 if necessary. 10/20/17 1409 <Electronically signed by Estephania Shay MD> Date Estephania Shay MD Cosigner Signature (If Indica germain): Date CC: Naomi Colunga DO 20-Oct-2017 Abdomen/Pelvis WITH Contrast Result: Comments: See Note; NOTES: [facility] Imaging Services [address] [place] [address] Abdomen/Pelvis WITH Contrast MR#: [id number] Acct: [id number] Name: JANIS ZAPATA Rep #: [id number] : 1970 F 47 From: Matt Beckwith MD PCP: Naomi Colunga DO Status: [facility] ER Study: Abdomen/Pelvis WITH Contrast Date of Exam: 10/20/17 Exam# [id number] Ordering Dr: Grecia Shay MD STUDY: CT [...] Matt Beckwith MD at 13:14 EDT Tel [phone], Service support , CC: Estephania Shay MD; Naomi Colunga DO Rubber Liner: Signed 03-Oct-2017 6 Minute Walk Test Result: Comments: See Note; NOTES: [facility] Pulmonary Services/Neurology [address] [place] [address] MR#: [id number] Acct: [id number] Name: JANIS ZAPATA Rep #: [id number] : 1970 47 From: Say Rosa MD Referring Dr: Albania Brenner WOOD LAST MAKER Date: Ordering Dr: Sex: F C Location: PSN PSN 6 Minute Walk Test - 6 Minute Walk Test 6 Minute Walk Test: 6 Minute Walk Test P SN:6-Minute Walk Test Start: 10/03/17 11:21 Freq: Status: Active Protocol: RESP.6MINW Document 10/03/17 10:55 [facility] (Rec: 10/03/17 11:24 [facility] [id number]) 6 Minute Walk Test Date Performed 10/03/17 [...] CC: Date Dictated: 10/03/171320 Date Transcribed: 10/03/171320 Rubber Liner: Say Rosa Signed 07-Jul-2017 Operative Report Result: Comments: See Note; NOTES: [facility] Medical Records Department [address] [place] [address] Operative Report 07/07/17 1122 MR#: [id number] Acct: [id number] Name: RUBEN ZAPATA Zaida Luis Rep #: [id number] : 1970 47 From: Harry Gagnon MD PCP: Naomi Colunga DO Status: [facility] Y Location: [place] [address] Problem List (1) DDD (degenerative disc disease), lumbosacral Status: [facility] (2) Radiculopathy of lumbosacral region Status: Chronic [...] consent was obtained. IV inserted per r [facility] protocol. The patient was taken to the [...] Spine Inj Result: Comments: See Note; NOTES: [facility] Imaging Services [address] [place] [address] Fluor Guidance for Spine Inj MR#: [id number] Acct: [id number] Name: JANIS ZAPATA Rep #: [id number] : 1970 F 47 From: Fabrizio Meade MD PCP: Naomi Colunga DO Status: [facility] Study: Fluor Guidance for Spine Inj Date of Exam: 07/07/17 Exam# [id number] Ordering Dr: Harry Gagnon CLINICAL HISTORY: Female, [...] at 7:19 EDT Tel , Service support [phone], CC: Harry Gagnon; Naomi Colunga DO Rubber Liner: Signed 21-Jun-2017 Discharge Instruction Result: Comments: See Note; NOTES: [facility] Medical Records Department [address] [place] [address] Discharge Instruction 06/20/17 2228 MR#: [id number] Acct: [id number] Name: JANIS ZAPATA Rep #: [id number] : 1970 46 From: Harry Cortez MD PCP: Naomi Colunga DO Status: [facility] ER ED Disposition - Plan [...] your Primary Care Provider. Call [facility] ([phone]) or report to the closest Emergency Room. Call 911 if necessary. 06/21/17 0030 <Electron ically signed by Harry Cortez MD> Date Harry Cortez MD Cosigner Signature (If Indicated): Date CC: Naomi Colunga DO 21-Jun-2017 Emergency Department Summary Result: Comments: See Note; NOTES: [facility] Medical Records Department [address] [place] [address] Emergency Department Summary 06/20/17 1839 MR#: [id number] Acct: [id number] Name: JANIS ZAPATA Rep #: [id number] : 1970 46 From: Harry Cortez MD PCP: Naomi Colunga DO Status: REG ER - ER Visit Summary Date of Service: 06/20/17 Chief Complaint: Diarrhea History of Present Illness: The patient is a 46 F 3 of irritable bowel syndrome and rqe-ldtpmiq-niurwcque diabetes along with renal insufficiency. Patient states [...] culture pending This note was generated with Ziios dictation software. It may con tain incorrect [...] problems, contact your Primary Care Provider. Call [employer] Registry ([phone]) or report to the closest Emergency Room. Call 911 if necessary. 06/21/17 0030 <Electronically signed by Harry Cortez MD> Date ____ Harry Cortez MD Cosigner Signature (If Indicated): Date CC: Naomi Colunga DO 29-May-2017 Pulmonary Visit Report Result: Comments: See Note; NOTES: [facility] [address] [place] [address] OFFICE VISIT Date of Service: 05/29/17 MR#: [id number] Acct: [id number] Name: JANIS PURVIS Rep #: [id number] : 1970 Provider: Albania Brenner Age/Sex: 46/F Location: [facility].PMW Status: Signed Assessment AND Plan 1. Pulmonary [...] PO DAILY 08/31/16 [History Confirmed 05/29/17] Tiotropium Bristol [Spiriva 18 MCG] 1 puff INHALATION DAILY [...] tab PO BID 04/03/17 [History Confirmed 05/29/17] [facility] Medical History Continuous tobacco abuse (Chronic) [...] Spent - greater than 10 minutes: Yes (31054) 05/29/17 1347 <Electronically signed by Albania BURDICK> Date Albania BURDICK Cosigner Signature : Date (if applicable) CC: Naomi Colunga DO 16-Apr-2017 OT Functional Capacity Eval Result: Comments: See Note; NOTES: [facility] Occupational Therapy 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 Job required standing, lifing and bending. Pt states she left this job due to pain and the inability to perform her job duties safely. - Behavioral Behavioral: pt was coorperative during the assessment. - ADLS ADLS: Pt states she lives with her , son future rmsxdtwt-mk-wjo and future step granddaughter. 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 manager, bed side comode, elevated toilet seat, sock [...] throughout 4/5 UB and LB strength Right Cold Food Packer Strength [place] ge: 63.33 Right Cold Food Packer Strength Percentile: 28% Left Cold Food Packer Strength Average: 50.00 Left Cold Food Packer Strength Percentile: 17% Right Lateral Pinch Average: [...] Department Summary Result: Comments: See Note; NOTES: [facility] Medical Records Department [address] [place] [address] Emergency Department Summary 04/03/17 1527 MR#: [id number] Acct: [id number] Name: JANIS ZAPATA Rep #: [id number] : 1970 46 From: Ana Paula Mendieta [...] weakness, improved This note was generated with Ziios dictation software. It may contain incorrect words, [...] your Primary Care Provider. Call [facility] ([phone]) or report to the closest Emergency Room. Call 911 if necessary. 04/03/17 1720 <Electronically signed by Ana Paula Mendieta MD> Date Ana Paula Mendieta MD Cosigner Signature (If Indicated): Date CC: Naomi Colunga DO 03-Apr-2017 Discharge Instruction Result: Comments: See Note; NOTES: [facility] Medical Records Department [address] [place] [address] Discharge Instruction 04/03/17 1532 MR#: [id number] Acct: [id number] Name: JANIS ZAPATA Rep #: [id number] : 1970 46 From: Ana Paula Mendieta [...] your Primary Care Provider. Call [facility] ([phone]) or report to the closest Emergency Room. Call 911 if necessar y. 04/03/17 1534 <Electronically signed by Ana Paula Mendieta MD> Date Ana Paula Mendieta MD Cosigner Signature (If Indicated): Date CC: Naomi Colunga DO 03-Apr-2017 Lumbar Spine 2 or 3 Views Result: Comments: See Note; NOTES: [facility] Imaging Services [address] [place] [address] Lumbar Spine 2 or 3 Views MR#: [id number] Acct: [id number] Name: JANIS ZAPATA Rep #: [id number] : 1970 F 46 From: Louise Francis MD PCP: Naomi Colunga DO Status: REG ER Study: Lumbar Spine 2 or 3 Views Date of Exam: 04/03/17 Exam# [id number] Ordering Dr: Ana Paula Mendieta MD STUDY: [...] Ana Paula Mendieta MD; Naomi Colunga DO Rubber Liner: Signed 03-Apr-2017 Pelvis 1 or 2 Views Result: Comments: See Note; NOTES: [facility] Imaging Services [address] [place] [address] Pelvis 1 or 2 Views MR#: [id number] Acct: [id number] Name: JANIS ZAPATA Rep #: [id number] : 1970 F 46 From: Louise Francis MD PCP: Naomi Colunga DO Status: REG ER Study: Pelvis 1 or 2 Views Date of Exam: 04/03/17 Exam# [id number] Ordering Dr: Ana Paula Mendieta MD STUDY: [...] MD at 14:15 EST , Service support [phone], CC: Ana Paula Mendieta MD; Naomi Colunga DO Rubber Liner: Signed 10-Feb-2017 Operative Report Result: Comments: See Note; NOTES: [facility] Medical Records Department [address] [place] [address] Operative Report 02/10/17 1112 MR#: [id number] Acct: [id number] Name: RUBEN ZAPATA Rep #: [id number] : 1970 46 From: Harry Gagnon MD PCP: Naomi Colunga DO Status: REG SDC Y Location: [place] [address] Report of Operation Date of Procedure: 02/10/17 [...] Jt Should/Hip/Knee Result: Comments: See Note; NOTES: [facility] Imaging Services [address] [place] [address] Inj/Asp Aakash Jt Should/Hip/Knee MR#: [id number] Acct: [id number] Name: JANIS ZAPATA Rep #: [id number] : 1970 F 46 From: Ministerio Vela MD PCP: Naomi Colunga DO Status: [facility] Study: Inj/Asp Aakash Jt Should/Hip/Knee Date of Exam: 02/10/17 Exam# [id number] Ordering Dr: Harry jama MD STUDY: X-RAY [...] , CC: Harry Gagnon; Naomi Colunga DO Rubber Liner: Signed 18-Dec-2016 SCREENING MAMM (CAD), BILAT Result: Comments: See Note; NOTES: [facility] Imaging Services [address] [place] [address] SCREENING MAMM (CAD), BILAT MR#: [id number] Acct: [id number] Name: JANIS ZAPATA Rep #: [id number] : 1970 F 46 From: Matt Beckwith MD PCP: Naomi Colunga DO Status: [facility] Study: SCREENING MAMM (CAD), BILAT Date of Exam: 12/18/16 Exam# [id number] Ordering Dr: Jd Colunga DO MAMMOGRAPHY - [...] biopsy of a clinically suspic ious abnormality. [id number] Electronically Signed: Matt Beckwith MD at 12:54 EDT Tel [phone], Service support , CC: Naomi Colunga DO Rubber Liner: Signed 16-Nov-2016 Echocardiogram Complete Result: Comments: See Note; NOTES: [facility] Cardiovascular Services [address] [place] [address] Echo Complete W/ Contrast 11/15/16 1357 MR#: [id number] Acct: [id number] Name: JANIS PURVIS Rep #: [id number] : 1970 46 From: Mukesh Gutierrez MD Attending Dr: Sharda Wylie PA-C Status: REG I Ordering Dr: Sharda Wylie PA-C Date: 11/15/16 Location: [facility] Sex: F C Admitted: Reason For Study: [...] Dictated: 11/15/16 1357 Date Transcribed: 11/16/16 1153 Rubber Liner: Signed 10-Nov-2016 Consultation Result: Comments: See Note; NOTES: [facility] Medical Records Department [address] [facility] [place] [address] Consultation 11/06/16 1831 MR#: [id number] Acct: [id number] Name: JANIS ZAPATA Rep #: [id number] : 1970 46 From: Kerrie Eng MD [...] - placement of drain in right b [facility] abscess Anesthesia - local 1% xylocaine with [...] Department Summary Result: Comments: See Note; NOTES: [facility] Medical Records Department [address] [place] [address] Emergency Department Summary 11/06/16 194 MR#: [id number] Acct: [id number] Name: JAINS ZAPATA Rep #: [id number] : 1970 46 From: Antione Barron MD [...] mg 30 clindamycin 300 mg 40 and [place] is 20 is to recheck from Dr. [...] ED Abscess IandD Prescriptions: Hydrocodone Bitart/Apap 5-325 [[place] 5/325] 1 - 2 tablet PO Q4H [...] Primary Care Provider. Call [facility] ([phone]) or report to the closest Emergency Room. Call 911 if necessary. 11/07/16 0154 <Electronically signed by Antione Barron MD> Date Antione Barron MD Cosigner Signature (If Indicated): Date CC: Naomi Colunga DO Discharge Instruction Result: Comments: See Note; NOTES: [facility] Medical Records Department [address] [place] [address] Discharge Instruction 11/06/161932 MR#: [id number] Acct: [id number] Name: JANIS ZAPATA Rep #: [id number] : 1970 46 From: Antione Barron MD PCP: Naomi Colunga DO Status: REG ER ED Disposition - Plan for ED Patient: Chief Complaint: Abscess Instructions: ED Abscess IandD Prescriptions: Hydrocodone Bitart/Apap 5-325 [[place] 5/325] 1 - 2 tablet PO Q4H [...] your Primary Care Provider. Call [facility] ([phone]) or report to the closest Emergency Room. Call 911 if necessary. 11/06/161935 <Electronically signed by Antione Barron MD> Date Antione Barron MD Cosigner Signature (If Indicated): Date CC: Naomi Colunga DO 06-Nov-2016 Discharge Instruction Result: Comments: See Note; NOTES: [facility] Medical Records Department [address] [place] [address] Instructions for Home/Discharge Instructions 11/06/161828 MR#: [id number] Acct: [id number] Name: JANIS ZAPATA Rep #: [id number] : 1970 46 From: Kerrie Eng MD [...] Caplet] 1 tab PO DAILY 08/31/16 Tiotropium Bristol [Spiriva 18 MCG] 1 puff INHALATION DAILY [...] call for day and time, thank you [phone] <Electronically signed by Kerrie Eng MD> Date Kerrie Eng MD CC: Naomi Colunga DO 06-Nov-2016 Emergency Department Summary Result: Comments: See Note; NOTES: [facility] Medical Records Department [address] [place] [address] Emergency Department Summary 11/06/16 1521 MR#: [id number] Acct: [id number] Name: JANIS ZAPATA Rep #: [id number] : 1970 46 From: Antione Barron MD [...] your Primary Care Provider. Call [facility] ([phone]) or report to the closest Emergency Room. Call 911 if necessary. 11/06/16 1543 &a mp;#60;Electronically signed by Antione Barron MD> Date Antione Barron MD Cosigner Signature (If Indicated): Date CC: Naomi Colunga DO 06-Nov-2016 Pelvis WITH IV Contrast Result: Comments: See Note; NOTES: [facility] Imaging Services [address] [place] [address] Pelvis WITH IV Contrast MR#: [id number] Acct: [id number] Name: JANIS ZAPATA #: [id number] : 1970 F 46 From: Ana Paula Blum MD PCP: Naomi Colunga DO Status: [facility] Study: Pelvis WITH IV Contrast Date of Exam: 11/06/16 Exam# [id number] Ordering Dr: Antione Barron MD STUDY: CT [...] Paula Blum MD at 16:55 EDT Tel [phone], S ervice support , CC: Antione Barron MD; Naomi Colunga DO Rubber Liner: Signed 17-Oct-2016 Pulmonary Function Report Comp Result: Comments: See Note; NOTES: [facility] Pulmonary Services/Neurology [address] [place] [address] MR#: [id number] Acct: [id number] Name: JANIS ZAPATA Rep #: [id number] : 0 1970 46 From: Say Rosa MD Referring Dr: Jeremias Gonsalez D.O. Status: REG CLI Ordering Dr: Date: Location: [facility] Sex: F C Pulmonary Function Report Comp Pulmonary Function Report Comp: COMPLETE PULMONARY FUNCTION TEST INTERPRETATION Brief HPI: Patient is a 46 year old female, currently under the care of Dr. Gonsalez, who presents to [facility] for complete pulmonary fu nction tests [...] DO Date Dictated: 10/17/161622 Date Transcribed: 10/17/161622 Rubber Liner: CARNE Signed 04-Oct-2016 6 Minute Walk Test Result: Comments: See Note; NOTES: [facility] Pulmonary Services/Neurology [address] [place] [address] MR#: [id number] Acct: [id number] Name: JANIS ZAPATA Rep #: [id number] : 1970 46 From: Say Rosa MD Referring Dr: Jeremias Gonsalez D.O. Date: Ordering Dr: Sex: F C Location: PSN PSN 6 Minute Walk Test - 6 Minute Walk Test 6 Minute Walk Test: 6 Minute Walk Test PSN :6-Minute Walk Test Start: 10/04/16 12:48 Freq: Status: Active Document 10/04/16 12:48 DWP (Rec: 10/04/16 12:56 DWP [id number]) 6 Minute Walk Test Date Performed 10/04/16 [...] CC: Date Dictated: 10/04/161806 Date Transcribed: 10/04/161806 Rubber Liner: Say Rosa Signed 17-Sep-2016 Chest 1 View Result: Comments: See Note; NOTES: [facility] Imaging Services [address] [place] [address] Verdana 4d Chest 1 View MR#: [id number] Acct: [id number] Name: JANIS ZAPATA Rep #: [id number] : 1970 F 46 From: Fabrizio Meade MD PCP: Naomi Colunga DO Status: REG CLI Study: Chest 1 View Date of Exam: 09/17/16 Exam# [id number] Ordering Dr: Fabrizio Meade MD STUDY: X-RAY [...] CC: Fabrizio Meade MD; Naomi Colunga DO Rubber Liner: Signed 17-Sep-2016 Biopsy/Inj or Needle Placement Result: Comments: See Note; NOTES: [facility] Imaging Services [address] [place] [address] Verdana 4d Biopsy/Inj or Needle Placement MR#: [id number] Acct: [id number] Name: FREDY ZAPATA Rep #: [id number] : 1970 F 46 From: Fabrizio Meade MD PCP: Naomi Colunga DO Status: REG CLI Study: Biopsy/Inj or Needle Placement Date of Exam: 09/17/16 Exam# [id number] Ordering Dr: Ximena Slater MD PROCEDURE: CT-GUIDED [...] CC: Vibha Larson M.D.; Naomi Colunga DO Rubber Liner: Signed 31-Aug-2016 Chest PA and Lateral Result: Comments: See Note; NOTES: [facility] Imaging Services [address] [place] [address] Verdana 4d Chest PA and Lateral MR#: [id number] Acct: [id number] Name: JANIS ZAPATA Rep #: [id number] : 1970 F 46 From: Jesús Mcconnell MD PCP: Naomi Colunga DO Status: REG ER Study: Chest PA and Lateral Date of Exam: 08/31/16 Exam# [id number] Ordering Dr: Fatimah Rene STUDY: X- RAY [...] , CC: Fatimah Rene; Naomi Colunga DO Rubber Liner: Signed 29-Aug-2016 Operative Report Result: Comments: See Note; NOTES: [facility] Medical Records Department [address] [place] [address] Operative Report MR#: [id number] Acct: [id number] Name: JANIS ZAPATA Rep #: [id number] : 1970 46 From: Harry Gagnon MD PCP: Naomi Colunga DO Status: [facility] DATE OF SERVICE: 08/05/2016 DATE OF PROCEDURE: [...] indicated. Harry Gagnon MD T: NTS JOB: [id number] 08/29/16 1633 <Electronically signed by Harry Gagnon MD> Date ___ Harry Gagnon MD Cosigner Signature (If Indicated): Date CC: Harry Gagnon; Naomi Colunga DO Date Dictated: 08/05/16 1204 Date Trans cribed: 08/05/16 120 Rubber Liner: Signed 15-Aug-2016 PT D/C Summary (1) Result: Comments: See Note; NOTES: [facility] [address] [place], [place] [address] Fax REHABILITATION SERVICES SUNDAR JONES SUMMARY MR#: [id number] Acct: [id number] Name: JANIS ZAPATA Rep #: [id number] [...] please feel free to call me at [phone]. Thank you for the referral of this patient. Sincerely, Marguerite Haq <Electronically signed by Marguerite Haq DPT> 08/15/16 1053 CC: Leticia Bernard DO; Naomi Colunga DO ELR Signed 05-Aug-2016 OR-Steroi/Epid Inj/Lum Sac/ Result: Comments: See Note; NOTES: [facility] Imaging Services [address] [place] [address] Verdana 4d OR-Steroi/Epid Inj/Lum Sac/1st MR#: [id number] Acct: [id number] Name: FREDY ZAPATA Rep #: [id number] : 1970 F 46 From: Matt Beckwith MD PCP: Naomi Colunga DO Status: [facility] Study: OR-Steroi/Epid Inj/Lum Sac/1st Date of Exam: 08/05/16 Exam# [id number] Ordering Dr : Harry Gagnon MD PROCEDURE: Caudal block. DATE OF EXAMINATION: August 05, 2016. INDICATION: Female, 46 years old. A caudal block was performed by the pain management physician. RAD/OR-Steroi/Epid Inj/Lum Sac/1st IMPRESSION: Fluoroscopic services provided for caudal block. Electronically Signed: Matt Beckwith MD at 15:16 EDT Tel [phone], Service support , CC: Harry Gagnon; Naomi Colunga DO Rubber Liner: Signed 25-Jul-2016 Re-Evaluation - PT (1) Result: Comments: See Note; NOTES: [facility] [address] [place] [address]. [address] [place] [address] Fax REEVALUATION / MEDICARE [facility] Karla 4d PHYSICAL THERAPY MR#: [id number] Acct: [id number] Name: JANIS ZAPATA Rep #: [id number] : 1970 46 From: Marguerite Haq DPT Referring DrYaneth: Leticia Bernard DO Status: REG RCR Ins urance: [facility] Leticia Bernard DO, It has been my [...] she is waiting for a phone call. [place] the knee/hip injections helped. Feels that the [...] do not hesitate to contact me at [phone] by phone or if you have questions or concerns regarding this new plan of care! Sincerely, Marguerite Haq <Electronically signed by Marguerite Haq DPT> 07/25/16 1609 CC: Leticia Bernard DO; Naomi Colunga DO ELR Signed For Medicare only, by signing this I certify the plan of care. Physicians Signature Date 15-Jul-2016 L/S Spine Min 4 Views Result: Comments: See Note; NOTES: [facility] Imaging Services [address] [place], [place] [address] [address] Ibeth 4d L/S Spine Min 4 Views MR#: [id number] Acct: [id number] Name: JANIS ZAPATA p #: [id number] : 1970 F 46 From: Aaron Glasgow MD PCP: Naomi Colunga DO Status: REG CLI Study: L/S Spine Min 4 Views Date of Exam: 07/15/16 Exam# [id number] Ordering Dr: Daniella Sharp STUDY: X-RAY - [...] at 12:48 EDT Tel , Service support [phone], CC: Carlotta Sharp; Noami Colunga DO Rubber Liner: Signed 24-Jun-2016 Knee 4 or More Views Result: Comments: See Note; NOTES: [facility] Imaging Services [address] [place] [address] Verdana 4d Knee 4 or More Views MR#: [id number] Acct: [id number] Name: JANIS ZAPATA Rep # : [id number] : 1970 F 45 From: Jesús Mcconnell MD PCP: Naomi Colunga DO Status: REG RCR Study: Knee 4 or More Views Date of Exam: 06/24/16 Exam# [id number] Ordering Dr: Carlotta Sharp STUD Y: X-RAY [...] at 3:27 EDT Tel , Service support [phone], CC: Carlotta Sharp; Naomi Colunga DO Rubber Liner: Signed 24-Jun-2016 Knee 4 or More Views Result: Comments: See Note; NOTES: [facility] Imaging Services [address] [place] [address] Verdana 4d Knee 4 or More Views MR#: [id number] Acct: [id number] Name: JANIS ZAPATA Rep # : [id number] : 1970 F 45 From: Jesús Mcconnell MD PCP: Naomi Colunga DO Status: [facility] RCR Study: Knee 4 or More Views Date of Exam: 06/24/16 Exam# [id number] Ordering Dr: Carlotta Sharp STUD Y: X-RAY [...] at 3:30 EDT Tel , Service support [phone], CC: Carlotta Sharp; Naomi Colunga DO Rubber Liner: Signed 04-Jun-2016 Inital Evaluation (1) - PT Result: Comments: See Note; NOTES: [facility] [address] [place] [address]. [address] [place] [address] Fax REHABILITATION SERVICES INITIAL EVALUATION MR#: [id number] Acct: [id number] Name: JANIS ZAPATA Rep #: [id number] : 1970 45 From: Marguerite Haq DPT Referring DrYaneth: Carlotta Sharp Status: REG [facility] Insurance: [facility] Patient's Visit Information JANIS ZAPATA [...] to be FAXED BACK to us at [phone] for Medicare purposes. Please let me know if there are questions or concerns regarding this plan of care. Physician Signature: Date: <Electronically signed by Marguerite Haq DPQuinn> 06/04/16 1557 CC: Carlotta Kirkland ; Naomi Colunga DO ELR Signed For Medicare only, by signing this I certify the plan of care. Physicians Signature Date 04-Jun-2016 Thyroid Result: Comments: See Note; NOTES: [facility] Imaging Services [address] [place] [address] Verdana 4d Thyroid MR#: [id number] Acct: [id number] Name: JNAIS ZAPATA Rep #: [id number] D OB: 1970 F 45 From: Shaggy Jean DO PCP: Naomi Colunga DO Status: REG CLI Study: Thyroid Date of Exam: 06/04/16 Exam# [id number] Ordering Dr: Naomi Colunga DO STUDY: THYROID [...] 20:11 EST Tel , Priscilla eagle support [phone], CC: Naomi Colunga DO Rubber Liner: Signed 27-May-2016 Operative Report Result: Comments: See Note; NOTES: [facility] Medical Records Department [address] [place] [address] Operative Report MR#: [id number] Acct: [id number] Name: JANIS ZAPATA Rep #: [id number] : 1970 45 From: Harry Gagnon MD PCP: Naomi Colunga DO Status: [facility] DATE OF SERVICE: 05/13/2016 DATE OF SERVICE: [...] indicated. Harry Gagnon MD T: NTS JOB: [id number] 05/27/16 1356 <Electronically signed by Harry Gagnon MD> Date __ Harry Gagnon MD Cosigner Signature (If Indicated): Date CC: Harry Ames Date Dictated: 05/13/161117 Date Transcribed: 05/13/161117 Rubber Liner: Signed 13-May-2016 Inj/Asp Aakash Jt Should/Hip/Knee Result: Comments: See Note; NOTES: [facility] Imaging Services [address] [place] [address] Verdana 4d Inj/Asp Aakash Jt Should/Hip/Knee MR#: [id number] Acct: [id number] Name: FREDY ZAPATA Rep #: [id number] : 1970 F 45 From: Matt Beckwith MD PCP: Naomi Colunga DO Status: [facility] Study: Inj/Asp Aakash Jt Should/Hip/Knee Date of Exam: 05/13/16 Exam# [id number] Ordering Dr: Harry Gagnon MD STUDY: INJECTION [...] Matt Beckwith MD at 13:45 EST Tel [phone], Service support [phone], Fax CC: Harry Gagnon; Naomi Colunga DO Rubber Liner: Signed Family History Unknown Family Member Name [...] Active Vital Signs Date Test Result Details 1-Icz-956420:00 Temperature 98 f Comments: Method: Oral Pulse [...] kg/m2 Body Surface Area Calculated 2.44 m2 46-Urv-425607:23 Temperature 97.5 f Comments: Method: Temporal Pulse [...] kg/m2 Body Surface Area Calculated 2.4 m2 9-Zdv-360555:00 Pulse 107 /min Comments: Pattern: Regular Respiration [...] 2.46 m2 Results Date Description Value Details :26 Aerobic Bacterial Culture Comments: R arm; PATIENT NOT FASTINGPERFORMED BY: [facility] CenterFzxxel4852 [facility] [id number] Information: RIGHT ARM SRC:JAZIEL (31879) Antimicrobial MIHEAD (Normal) Comments: S = Susceptible; [...] Meropenem Aerobic Bacterial Final report (Abnormal) Culture 0-Szz-714207:25 Aerobic Bacterial Culture Comments: L leg; PATIENT NOT FASTINGPERFORMED BY: [facility] Mvttqj8286 [facility] [id number] Information: LEFT LEG SRC:FL (38043) Antimicrobial MIHEAD (Normal) Comments: S = Susceptible; [...] U/L (Abnormal) Comments: PATIENT NOT FASTINGPERFORMED BY: [facility] [id number] 88429:17 Range: 31-124 Lipase 34 U/L (Normal) Comments: PATIENT NOT FASTINGPERFORMED BY: [facility] [id number] 36971:17 Range: 14-72 Written Authorization WAR (Normal) Comments: PATIENT NOT FASTINGPERFORMED BY: [facility]6[address] [facility] [id number] 62218:17 Comments: Written Authorization Received.Authorization received from REJI SOMERS [id number] by Violet Gong 21-Epa-976085:17 C-REACTIVE PROTEIN (70370) Comments: PATIENT NOT FASTINGPERFORMED BY: [facility] [id number] C-Reactive Protein, Quant 17.9 mg/L (Abnormal) Range: 0.0-4.9 77-Jjm-648092:17 SED RATE ERYTHROCYTE (93393) Comments: PATIENT NOT FASTINGPERFORMED BY: [facility]6[address] [facility] [id number] Sedimentation Rate-Westergren 77 mm/h (Abnormal) Range: 0-32 55-Fsz-340941:17 CBC W/AUTO DIFF WBC (98592) Comments: PATIENT NOT FASTINGPERFORMED BY: [facility]6[address] [facility] [id number] Immature Grans (Abs) 0.0 {x10E3/uL} (Normal) Range: [...] 3.77-5.28 WBC 11.1 {x10E3/uL} (Abnormal) Range: 3.4-10.8 17-Unh-415424:17 METABOLIC PANEL, COMPREHENSIVE Comments: PATIENT NOT FASTINGPERFORMED BY: [facility] Zjcttw5176 [facility] [id number] (89659) ALT (SGPT) 35 [iU]/L (Abnormal) Range: 0-32 [...] 6-24 Glucose 124 mg/dL (Abnormal) Range: 65-99 56-Yvz-615330:45 CBC-Complete Blood Cnt No Diff Comments: [facility] [address]st[address]qbm[address] [place], [place], [id number] MPV 10.5 fL (Normal) Range: 6.2-12.0 PLT [...] 4.2-5.4 WBC 11.0 K/mm3 (Normal) Range: 4.4-11.0 80-Phd-751867:45 Protein+Creatinine Ratio,Urine Comments: [facility] Wddcewbvlv45[address] [place], [place], [address] PROT:CRE RATIO 2991 {mg/g_CRE} (Abnormal) Range: 0-200 PROTEIN,UR.RAN. 193.2 mg/dL (Abnormal) UR CREAT 64.60 mg/dL (Normal) 11-Nlr-279797:45 PTHIN 38.7 pg/mL (Normal) Comments: [facility] Xbeafdyobe9792 [address], [id number] Range: 18.4-80.1 99-Niy-780330:45 Renal Profile Comments: [facility] Jighnvtgyl2950 [place], [address] CO2 25.0 mmol/L (Normal) Range: 21.0-32.0 [...] A.D.A. criteria.Please note revised GLUCOSE reference range bxecstkhw41/02/2018. 12-Sgd-189565:45 Vitamin D,25 Hydroxy Comments: [facility] Yzjbbjtejk0602 [place], [address] Vitamin D 25-OH 36.6 ng/mL (Normal) Range: 29.95-100.01 Comments: Vitamin D 25(OH) Status Range Deficiency <20 ng/mL (50nmol/L) Insuffciency 20 - 30 ng/mL (50 - 75 nmol/L) Sufficiency 30 - 100 ng/mL (75 - 250 nmol/L) Toxicity >100 ng/mL (>250 nmol/L) 0-Zqc-817014:17 Hemoglobin A1c Comments: [facility] [address]ifuez[address]py[address] [place], [address] HGB A1C 6.4 % (Abnormal) Range: 4.2-6.3 6-Eza-039809:11 CBC-Complete Blood Cnt No Diff Comments: [facility] Fewsqhfmoz18[address] [place], [id number] MPV 10.1 fL (Normal) Range: 6.2-12.0 PLT [...] 4.2-5.4 WBC 8.1 K/mm3 (Normal) Range: 4.4-11.0 7-Pow-892777:11 Protein+Creatinine Ratio,Urine Comments: [facility] Oryfizqbby[address] [place], [address] PROT:CRE RATIO 1973 {mg/g_CRE} (Abnormal) Range: 0-200 PROTEIN,UR.RAN. 133.6 mg/dL (Abnormal) UR CREAT 67.70 mg/dL (Normal) 7-Skl-103085:11 PTHIN 22.2 pg/mL (Normal) Comments: [facility] Iqghwcczzq[address] [place], [address] Range: 18.4-80.1 1-Jts-099777:11 Renal Profile Comments: [facility] Aeqfhmekpp7[address] [place], [phone] CO2 24.0 mmol/L (Normal) Range: 21.0-32.0 CL [...] A.D.A. criteria.Please note revised GLUCOSE reference range zjanjzxxk94/02/2018. 9-Kwj-539654:11 Vitamin D,25 Hydroxy Comments: [facility] Jwyizsfoqo3749 [address] [place], [address] Vitamin D 25-OH 42.2 ng/mL (Normal) Range: 29.95-100.01 Comments: Vitamin D 25(OH) Status Range Deficiency <20 ng/mL (50nmol/L) Insuffciency 20 - 30 ng/mL (50 - 75 nmol/L) Sufficiency 30 - 100 ng/mL (75 - 250 nmol/L) Toxicity >100 ng/mL (>250 nmol/L) 09-Iib-861176:20 Urinalysis, Complete Comments: Order Date: 10/20/17Has pt arrived? YHow was Urine Obtained? [facility] Rtrnuirkej5788 [address] [place], [id number] MUCUS, URINE 0 SEEN {/hpf} (Normal) BACTERIA [...] (Normal) CLARITY Clear (Normal) COLOR Yellow (Normal) 60-Dph-296662:20 CBC W/Diff, Automated Comments: [facility] Xxauopcazc[address] [place], [place], [phone] Absolute Lymph 2.39 {X10_3/ul} (Normal) Range: 0.83-4.51 [...] 4.2-5.4 WBC 7.0 K/mm3 (Normal) Range: 4.4-11.0 23-Pby-259381:20 Comprehensive Metabolic Profil Comments: [facility] Gjmqnsmyfy95[address] [place], [address] GAP 10 (Normal) Range: 5-15 CO2 25.0 [...] A.D.A. criteria.Please note revised GLUCOSE reference range ynoanombt70/02/2018. 3-Rid-554764:52 Culture, Urine Comments: [facility] Euepgzubsy5[address] [place], [place], [address] CUUR See Note (Normal) Comments: Urine CultureORGANISM [...] <=20 S(NF) indicates non-formulary drug at [facility]. Approval by Infectious Disease Specialist required before non-formulary drugs may be ordered and/or dispensed. 58-Cnv-899674:38 CBC-Complete Blood Cnt No Diff Comments: [facility] Strovfijnw[address] [place], [place], [address] MPV 10.3 fL (Normal) Range: 6.2-12.0 PLT [...] 4.2-5.4 WBC 7.7 K/mm3 (Normal) Range: 4.4-11.0 12-Wnv-142584:38 Protein+Creatinine Ratio,Urine Comments: [facility] Jmvrhajcif4548 [address] [place], [address] PROT:CRE RATIO 2487 {mg/g_CRE} (Abnormal) Range: 0-200 PROTEIN,UR.RAN. 318.3 mg/dL (Abnormal) UR CREAT 128.00 mg/dL (Normal) 23-Nhd-033461:38 PTHIN 32.3 pg/mL (Normal) Comments: [facility] Mylyrkytdo7987 [address] [place], [address] Range: 18.4-80.1 08-Toh-629251:38 Renal Profile Comments: [facility] Vvxyjlhutb[address] [place], [address] CO2 24.0 mmol/L (Normal) Range: 21.0-32.0 CL [...] A.D.A. criteria.Please note revised GLUCOSE reference range tzfjelxec83/02/2018. 07-Knc-415394:38 Vitamin D,25 Hydroxy Comments: [facility] Fcoybwaayx9288 [address] [place], [address] Vitamin D 25-OH 38.5 ng/mL (Normal) Range: 29.95-100.01 Comments: Vitamin D 25(OH) Status Range Deficiency <20 ng/mL (50nmol/L) Insuffciency 20 - 30 ng/mL (50 - 75 nmol/L) Sufficiency 30 - 100 ng/mL (75 - 250 nmol/L) Toxicity >100 ng/mL (>250 nmol/L) 08-Ivv-720969:35 Comprehensive Metabolic Profil Comments: [facility] Ycjyfmbapf7339 [address] [place], [address] GAP 9 (Normal) Range: 5-15 CO2 26.0 [...] A.D.A. criteria.Please note revised GLUCOSE reference range ethyqjdqa00/02/2018. 07-Jul-20179:31 Bedside Glucose Comments: [facility] Dhhg9[address] [place] [address] BEDSIDE GLU 133 mg/dL (Abnormal) Range: 70-110 Comments: MANAGEMENT OF PATIENT CARE PER NURSING PROTOCOL 78-Eyt-672706:01 HGB A1C (26088) Comments: PATIENT WAS FASTINGPERFORMED BY: [facility] Dcqbrx7590 [facility] [id number] Hemoglobin A1c 6.2 % (Abnormal) Range: 4.8-5.6 Comments: . Pre-diabetes: 5.7 - 6.4 Diabetes: >6.4 Glycemic control for adults with diabetes: <7.0 43-Bhr-872553:00 Basic Metabolic Profile (BMP) Comments: [facility] Epdpxhepib1190 [place], [address] GAP 10 (Normal) Range: 5-15 CO2 22.0 mmol/L (Normal) Range: 21.0-32.0 CL 110 mmol/L (Abnormal) Range: 98-107 K 2.7 mmol/L (Abnormal) Range: 3.5-5.1 NA 142 mmol/L (Normal) Range: 136-145 Comments: Critical Result(s) Called at: 18:00:26 06/20/2017 by:Kenyon Christian to xaviiner CA 8.6 mg/dL (Normal) Range: 8.5-10.1 BUN/CRE [...] A.D.A. criteria.Please note revised GLUCOSE reference range ceokxhcvc77/02/2018. 03-Lsd-253216:00 CBC W/Diff, Automated Comments: [facility] Cnpnopbhbd2182 [address] [place], [place], [id number] SMEAR COMMENT SCANNED (Normal) Absolute Lymph 4.73 [...] 4.2-5.4 WBC 11.2 K/mm3 (Abnormal) Range: 4.4-11.0 52-Qmu-698722:00 Urinalysis, Complete Comments: Order Date: 06/20/17Has pt arrived? YHow was Urine Obtained? CLEAN [facility] Zpbwyonjdg7134 [address] [place], [place], [phone] MUCUS, URINE 0 SEEN {/hpf} (Normal) BACTERIA [...] CLARITY Sl. Cloudy (Normal) COLOR Yellow (Normal) 65-Bfu-85669:33 Influenza A&B Viral Comments: PATIENT NOT FASTINGPERFORMED BY: [facility] CenterFpjnoc0149 [facility] [id number] Information: SRC:NL Culture (36895) Viral Culture,Rapid,Influenza FLUABN (Normal) Comments: Negative:No Influenza A or B detected. 86-Kno-206058:38 Blood Glucose , Office (88914) Blood Glucose , Office 123 (Normal) 25-Sdm-023028:04 Basic Metabolic Profile (BMP) Comments: [facility] Wxzopzocsv9972 [address] [place], [place], [address] GAP 10 (Normal) Range: 5-15 CO2 24.0 [...] A.D.A. criteria.Please note revised GLUCOSE reference range zoqwscngm86/02/2018. 02-Guw-028909:04 Microalb:Creat Ratio,Random UR Comments: [facility] Ndpqahhhuf[address] [place], [place], [address] MALB:CREAT 2009.4 {mg/g_CRE} (Abnormal) MICROALBUMIN,UR 2150.0 mg/L (Normal) UR CREAT 107.00 mg/dL (Normal) 03-Fet-033337:08 Basic Metabolic Profile (BMP) Comments: [facility] Quuevsnwml9167 [place], [address] GAP 7 (Normal) Range: 5-15 CO2 26.0 [...] 7-18 GLU 92 mg/dL (Normal) Range: 70-110 26-Rct-076947:08 CBC W/Diff, Automated Comments: [facility] Ftpofelmjt3408 [address] [place], [place], [address] Absolute Lymph 2.98 {X10_3/ul} (Normal) Range: 0.83-4.51 [...] 4.2-5.4 WBC 8.3 K/mm3 (Normal) Range: 4.4-11.0 81-Cfq-788927:08 CPK Total, Creatine Kinase Comments: [facility] Mjogtymxvg4565 [address] [place], [place], [address] CPK TOTAL 79 U/L (Normal) Range: 26-192 59-Ash-067595:46 URINE BEULAH CULTURE-IDENTIFICATN Comments: PATIENT NOT FASTINGPERFORMED BY: [facility] Zdgabz4483 [facility] [id number] Information: SRC:ALEISHA (71783) Result 2 BETAGB (Abnormal) Comments: Beta hemolytic [...] per mL (Abnormal) Urine Final report (Abnormal) Culture,Comprehensi 87-Zmn-555367:49 Urinalysis, Office (12287) UA - LEUKOCYTE ESTERASE Negative (Normal) UA - NITRITE Negative (Normal) URINE UROBILINGN GENNA TIMED Normal mg/dL (Normal) UA - PROTEIN 300 mg/dL (Normal) UA - PH 7.5 (Normal) UA - BLOOD Non Hemolyzed Moderate (Normal) UA - SPECIFIC GRAVITY 1.025 (Normal) UA - KETONES Negative mg/dL (Normal) UA - BILIRUBIN Negative (Normal) UA - GLUCOSE Negative (Normal) 96-Fwr-605019:24 TSH (41320) Comments: PATIENT WAS FASTINGPERFORMED BY: [facility] Ycukce6555 [facility] [id number] TSH 1.790 {uIU/mL} (Normal) Range: 0.450-4.500 27-Ajp-939559:24 METABOLIC PANEL, COMPREHENSIVE Comments: PATIENT WAS FASTINGPERFORMED BY: [facility] CenterFuffgy1792 [facility] [id number] (68010) ALT (SGPT) 37 [iU]/L (Abnormal) Range: 0-32 [...] Glucose, Serum 99 mg/dL (Normal) Range: 65-99 95-Yga-606990:24 CBC W/AUTO DIFF WBC (00720) Comments: PATIENT WAS FASTINGPERFORMED BY: [facility] CenterVepolh1840 [facility] [id number] Immature Grans (Abs) 0.0 {x10E3/uL} (Normal) Range: [...] 3.77-5.28 WBC 9.4 {x10E3/uL} (Normal) Range: 3.4-10.8 32-Toy-481499:24 LIPID PANEL (34295) Comments: PATIENT WAS FASTINGPERFORMED BY: [facility] Ipugsg4518 [facility] [id number] LDL/HDL Ratio 1.8 {ratio_units} (Normal) Range: 0.0-3.2 Comments: LDL/HDL Ratio Men Women 1/2 Avg.Risk 1.0 1.5 Av g.Risk 3.6 3.2 2X Avg.Risk 6.2 5.0 3X Avg.Risk 8.0 6.1 LDL Cholesterol Calc 75 mg/dL (Normal) Range: 0-99 VLDL Cholesterol Juliocesar 52 mg/dL (Abnormal) Range: 5-40 HDL Cholesterol 42 mg/dL (Normal) Triglycerides 258 mg/dL (Abnormal) Range: 0-149 Cholesterol, Total 169 mg/dL (Normal) Range: 100-199 02-Vsr-450875:24 CALCIFEDIOL (54592) Comments: PATIENT WAS FASTINGPERFORMED BY: [facility] CenterShltkz1910 [facility] [id number] Vitamin D, 25-Hydroxy 44.2 ng/mL (Normal) Range: 30.0-100.0 Comments: Vitamin D deficiency has been defined by the [place] of[place] and an Endocrine Society practice guideline as alevel of serum 25-OH vitamin D less than 20 ng/mL (1,2).The Endocrine Society went on to further define vitamin Dinsufficiency as a level between 21 and 29 ng/mL (2).1. IOM ([place] of [employer]). 2010. Dietary reference intakes for calcium and D. [place]: The National Academies Press.2. Miles MF, Tri MITCHELL, Juan Francisco SHEETS, et al. Evaluation, treatment, and prevention of vitamin D deficiency: an Endocrine Society clinical practice guideline. JCEM. 2010; 96(7):1911-30. 20-Weg-932855:15 HgA1C , Office (07175) HgA1C , Office 6.0 % (Normal) Range: 4.6 - 7.1 :15 Blood Glucose , Office (55732) Blood Glucose , Office 103 (Normal) 10-Feb-20179:45 Bedside Glucose Comments: [facility] Jhbr3033 [place] [address] BEDSIDE GLU 134 mg/dL (Abnormal) Range: 70-110 Comments: MANAGEMENT OF PATIENT CARE PER NURSING PROTOCOL 50-Vou-486145:04 ANCA Comments: Is Patient Fasting? [facility] (refer [...] up testing of positive sera with both IN-3 and MPO- ANCA enzyme immunoassays. As many as 5% serumsamp les are positive only by EIA. Ref. AM J Clin Onskdg5693;111:507-513. CYTOPLASMIC Ab <1:20 {titer} (Normal) 27-Yex-199209:04 Anti-dsDNA Ab Comments: [facility] (refer to report for specific site)refer to report for address and phone number dsDNA AB <1 {IU/mL} (Normal) Range: 0-9 Comments: Negative <5 Equivocal 5 - 9 Positive >9Performed at: [facility]Co[address] [id number] D irector: Jonathan Khan PhD, Phone: [phone] 42-Wvf-732912:04 Basic Metabolic Profile (BMP) Comments: PLEASE ADD BMP TO BLOOD FROM [facility] Nnpufwodai7275 [address] [place], [place], [address] GAP 8 (Normal) Range: 5-15 CO2 25.0 [...] 126 mg/dLsuggests DIABETES MELLITUS per A.D.A. criteria. 56-Gii-515151:04 CBC W/Diff, Automated Comments: [facility] Dvqkyrcput1485 [place], [address] Absolute Lymph 2.35 {X10_3/ul} (Normal) Range: 0.83-4.51 [...] 4.2-5.4 WBC 10.2 K/mm3 (Normal) Range: 4.4-11.0 05-Mls-109282:04 Complement C3 Comments: Is Patient Fasting? [facility] (refer to report for specific site)refer to report for address and phone number COMP C3 187 mg/dL (Abnormal) Range: 82-167 Comments: Performed at: - [address] [id number] Director: Jonathan Khan PhD, Phone: [phone] 63-Jox-111753:04 Complement C4 Comments: Is Patient Fasting? [facility] (refer to report for specific site)refer to report for address and phone number COMP C4 24 mg/dL (Normal) Range: 14-44 [id number] SHAYLEE + Protein Elect, Serum Comments: Is Patient Fasting? [facility] (refer to report for specific site)refer to report for address and phone number NOTE: Comment (Normal) Comments: Protein electrophoresis scan will follow via computer,mail, or horticultural farmworker delivery. SHAYLEE RESULT,S Comment (Normal) Comments: No monoclonality detected. A/G RATIO 1.1 (Normal) Range: 0.7-1.7 GLOBULIN, TOTAL 2.9 g/dL (Normal) Range: 2.2-3.9 M-SPIKE g/dL (Normal) Comments: Not Observed GAMMA GLOBULIN 0.7 g/dL (Normal) Range: 0.4-1.8 BETA GLOBULIN 1.0 g/dL (Normal) Range: 0.7-1.3 [id number]-4-HFTM 1.0 g/dL (Normal) Range: 0.4-1.0 VIJQY-9-HQYB 0.2 g/dL (Normal) Range: 0.0-0.4 ALBUMIN 3.1 g/dL (Normal) Range: 2.9-4.4 IMMUNOGL M 94 mg/dL (Normal) Range: 26-217 IMMUNO A 204 mg/dL (Normal) Range: 87-352 IMMUNO G 703 mg/dL (Normal) Range: 700-1600 PROTEIN,TOTAL 6.0 g/dL (Normal) Range: 6.0-8.5 74-Pwr-681351:04 Partial Thromboplast Time Comments: [facility] [address] [address] [place], [place], [id number] PTT 23.1 s (Abnormal) Range: 24.1-36.2 21-Ztx-850174:04 Protein+Creatinine Ratio,Urine Comments: [facility] Las[address] [facility] [address] [place], [address] PROT:CRE RATIO 1806 {mg/g_CRE} (Abnormal) Range: 0-200 PROTEIN,UR.RAN. 209.5 mg/dL (Abnormal) UR CREAT 116.00 mg/dL (Normal) 73-Pxj-067822:04 Prothrombin Time w/INR Comments: [facility] [address] [place], [place], [address] INR 1.0 (Normal) PROTIME 12.7 s (Normal) Range: 11.7-14.9 62-Foj-338099:00 Basic Metabolic Profile (BMP) Comments: [facility] Qfvss[address] [place], [place], [id number] GAP 9 (Normal) Range: 5-15 CO2 24.0 [...] 126 mg/dLsuggests DIABETES MELLITUS per A.D.A. criteria. 43-Gac-023019:00 Magnesium Comments: [facility] [address] [place], [place], [address] MG 2.0 mg/dL (Normal) Range: 1.8-2.4 70-Kia-787125:47 HGB A1C (55205) Comments: PATIENT NOT FASTINGPERFORMED BY: [facility] Sdxref2009 [facility] [id number] Hemoglobin A1c 6.2 % (Abnormal) Range: 4.8-5.6 Comments: . Pre-diabetes: 5.7 - 6.4 Diabetes: >6.4 Glycemic control for adults with diabetes: <7.0 48-Uae-213633:54 Basic Metabolic Profile (BMP) Comments: [facility] [address] [place], [address] GAP 7 (Normal) Range: 5-15 [...] 126 mg/dLsuggests DIABETES MELLITUS per A.D.A. criteria. 67-Acj-795468:54 Microalb:Creat Ratio,Random UR Comments: [facility] V[address]jcx[address] [facility] [place], [address] MALB:CREAT 3622.4 {mg/g_CRE} (Abnormal) MICROALBUMIN,UR 1880.0 mg/L (Normal) UR CREAT 51.90 mg/dL (Normal) 01-Bln-227356:30 CDIFF (Molecular) Comments: [facility] Klfwehhibs90[address] [facility] [place], [address] CDIFF See Note (Normal) Comments: Cdiff-MolecularNormal Reference Range = Negative C. Diff DNA Negative- No toxigenic C. Diff DNA DetectedNAAT METHOD Testing was performed using nucleic acid amplification 3-Vsp-533182:47 Bedside Glucose Comments: [facility] LaboratoryPoint of [address]zz[address] [place] [address] BEDSIDE GLU 124 mg/dL (Abnormal) Range: 70-110 Comments: MANAGEMENT OF PATIENT CARE PER NURSING PROTOCOL :39 Partial Thromboplast Time Comments: [facility] Efky[address]dlx[address] [place], [id number] PTT 25.9 s (Normal) Range: 24.1-36.2 6-Emf-741073:39 Prothrombin Time w/INR Comments: [facility] [address] [place], [address] INR 1.1 (Normal) PROTIME 14.2 s (Normal) Range: 11.7-14.9 :23 Basic Metabolic Profile (BMP) Comments: [facility] Yk[address]bcjj[address] [place], [address] GAP 8 (Normal) Range: 5-15 CO2 23.0 [...] 126 mg/dLsuggests DIABETES MELLITUS per A.D.A. criteria. 4-Vro-267673:23 Lactic Acid Comments: [facility] [address] [place], [id number] LACTIC ACID 1.4 mmol/L (Normal) Range: 0.4-2.0 95-Oce-092430: KIDNEY BIOPSY See Note (Normal) Comments: [facility] [address] [place], [address] 20 Comments: Patient: JANIS ZAPATA : 1970 (46/F) Acct Num: [id number] Phys: Vibha Larson M.D. Unit Num: [id number] Loc: CT Specimen: [id number] Received: 09/17/16 - 1040 Spec Ty pe: [...] DESCRIPTION The specimen is sent entirely to [facility] for diagnosis. The specimen is received in [facility] and consists of three cores of [...] singleglo merulus with segmental glomerulitis. Signed Magen [facility] 09/23/16 <signature on file> 79-Rsg-510306:21 D-Dimer Quantitative (DVT/PE) Comments: [facility] [address] [place], [place], [id number] D-DIMER QUANT 0.35 {FEU/ug/m} (Normal) Range: 0.27-0.49 Comments: NORMAL D-Dimer level (<0.50) indicates no DVT or PE. 92-Gzm-951702:33 Basic Metabolic Profile (BMP) Comments: 'TROP' Serial specimen #1, #2, #3, or #4: 1[facility] Ap[address]qu[address]jzn[address] [facility]. [place], [place], [address] GAP 11 (Normal) Range: 5-15 CO2 26.0 [...] 126 mg/dLsuggests DIABETES MELLITUS per A.D.A. criteria. 86-Wmv-530574:33 CBC W/Diff, Automated Comments: [facility] [address] [place], [place], [address] Absolute Lymph 2.32 {X10_3/ul} (Normal) Range: 0.83-4.51 [...] 4.2-5.4 WBC 10.3 K/mm3 (Normal) Range: 4.4-11.0 69-Oxz-891307:33 Troponin-I Comments: 'TROP' Serial specimen #1, #2, #3, or #4: [facility] S[address]lozniad[address] [place], [place], [address] TROPONIN-I < 0.02 ng/mL (Normal) Comments: TROPONIN-I EXPECTED VALUES <0.05 NEGATIVE 0.06 - 0.59 AT RISK OF NV > OR = 0.60 SUGGEST NV 37-Qba-42499:00 Creatinine, Urine (random) Comments: [facility] [address] [place], [place], [id number] UR CREAT 91.10 mg/dL (Normal) 42-Nkk-00467:00 Microalbumin,Random Urine Comments: [address] [place], [address] MICROALBUMIN,UR 5320.0 mg/L (Normal) 97-Gub-68347:00 Protein, Urine (Random) Comments: [address] [place], [address] PROTEIN,UR.RAN. 689.0 mg/dL (Abnormal) 02-Kls-75003:00 Urinalysis, Routine (Dipstick) Comments: How was Urine Obtained? CLEAN [facility] [address] [place], [address] LEUK ESTERASE 25 /ul (Abnormal) OCCULT BLOOD-UR 150 /ul (Abnormal) NITRITE UR Negative (Normal) UROBILI Normal mg/dL (Normal) PROT DIPSTX 500 mg/dL (Abnormal) pH UR 8.0 (Normal) Range: 5.0 - 8.0 SP.GR. DIPSTX 1.015 (Normal) Range: 1.002-1.030 KETONE UR Negative mg/dL (Normal) BILIRUBIN URINE Negative mg/dL (Normal) GLUCOSE, UR Normal mg/dL (Normal) CLARITY Clear (Normal) COLOR Yellow (Normal) 45-Rwl-513945:08 24 HR UR Creatinine Clearance Comments: [address] [place], [address] CREAT CLEARANCE 94 ml/min (Abnormal) Range: 100-200 URINE CREAT 113.0 mg/dL (Normal) EST GFR - AA 84 mL/min (Normal) Comments: GFR Calc EST GFR 69 mL/min (Normal) Comments: Non- GFR Calc SERUM CREAT 0.9 mg/dL (Normal) Range: 0.6-1.0 UR TOTAL VOLUME 1100 mL (Normal) UR COLLECT TIME 24.0 {HOURS} (Normal) 85-Jmi-654647:48 AFP, Tumor Marker Comments: Is Patient Fasting? NIs Patient ? [facility] (refer to report for specific site)refer to report for address and phone number AFP TUMOR 2253 2.8 ng/mL (Normal) Range: 0.0-8.3 Comments: Jai ECLIA methodology 20-Hve-116742:48 ANCA Comments: Is Patient Fasting? NIs Patient [...] up testing of positive sera with both IN-3 and MPO- ANCA enzyme immunoassays. As many as 5% serumsamp les are positive only by EIA. Ref. AM J Clin Ejyiiw7228;111:507-513. CYTOPLASMIC Ab <1:20 {titer} (Normal) 36-Agy-403661:48 Anti-dsDNA Ab Comments: [facility] (refer to report for specific site)refer to report for address and phone number dsDNA AB <1 {IU/mL} (Normal) Range: 0-9 Comments: Negative <5 Equivocal 5 - 9 Positive >9Performed at: - [facility] [address] [id number] D irector: Jonathan Khan PhD, Phone: [phone] 88-Kas-626223:48 CBC W/Diff, Automated Comments: [facility] [address] [place], [place], [address] Absolute Lymph 2.85 {X10_3/ul} (Normal) Range: 0.83-4.51 [...] 4.2-5.4 WBC 10.3 K/mm3 (Normal) Range: 4.4-11.0 65-Ccx-141761:48 Complement C3 Comments: Is Patient Fasting? NIs Patient ? [facility] (refer to report for specific site)refer to report for address and phone number COMP C3 205 mg/dL (Abnormal) Range: 82-167 Comments: Performed at: - [facility] [id number] Director: Jonathan Khan PhD, Phone: [phone] 20-Oey-117271:48 Complement C4 Comments: Is Patient Fasting? NIs Patient ? [facility] (refer to report for specific site)refer to report for address and phone number COMP C4 28 mg/dL (Normal) Range: 14-44 99-Jam-772509:48 SHAYLEE + Protein Elect, Serum Comments: Is Patient Fasting? NIs Patient ? [facility] (refer to report for specific site)refer to report for address and phone number NOTE: Comment (Normal) Comments: Protein electrophoresis scan will follow via computer,mail, or horticultural farmworker delivery. SHAYLEE RESULT,S Comment (Normal) Comments: No monoclonality detected. A/G RATIO 0.9 (Normal) Range: 0.7-1.7 GLOBULIN, TOTAL 3.2 g/dL (Normal) Range: 2.2-3.9 M-SPIKE g/dL (Normal) Comments: Not Observed GAMMA GLOBULIN 0.6 g/dL (Normal) Range: 0.4-1.8 BETA GLOBULIN 1.1 g/dL (Normal) Range: 0.7-1.3 GQYNE-4-JCVS 1.2 g/dL (Abnormal) Range: 0.4-1.0 DFQTC-5-LCNT 0.3 g/dL (Normal) Range: 0.0-0.4 ALBUMIN 2.6 g/dL (Abnormal) Range: 2.9-4.4 IMMUNOGL M 77 mg/dL (Normal) Range: 26-217 IMMUNO A 213 mg/dL (Normal) Range: 87-352 IMMUNO G 558 mg/dL (Abnormal) Range: 700-1600 PROTEIN,TOTAL 5.8 g/dL (Abnormal) Range: 6.0-8.5 :48 Partial Thromboplast Time Comments: [facility] [address] [facility] [address] [place], [place], [address] PTT 26.9 s (Normal) Range: 24.1-36.2 74-Wdq-643594:48 Prothrombin Time w/INR Comments: [facility] [address] [place], [place], [address] INR 1.0 (Normal) PROTIME 12.6 s (Normal) Range: 11.7-14.9 73-Joz-277894:27 HgA1C , Office (08563) HgA1C , Office 6.1 % (Normal) Range: 4.6 - 7.1 :27 Blood Glucose , Office (89251) Blood Glucose , Office 104 (Normal) 9-Yem-560034:10 Microscopic Examination Comments: PATIENT WAS FASTINGPERFORMED BY: [facility]6[address] [facility] [id number] Bacteria Few (Normal) Mucus Threads Present (Normal) Cast Type Hyaline casts (Normal) Casts Present {/lpf} (Abnormal) Epithelial Cells (non renal) 0-10 {/hpf} (Normal) Range: 0 - 10 RBC >30 {/hpf} (Abnormal) Range: 0 - 2 WBC 6-10 {/hpf} (Abnormal) Range: 0 - 5 0-Hnk-293424:10 URINALYSIS, W/ MICRO (13982) Comments: PATIENT WAS FASTINGPERFORMED BY: [facility] [id number] Microscopic Examination See below: (Normal) Comments: Microscopic was indicated and was performed. Nitrite, Urine Negative (Normal) Urobilinogen,Semi-Qn 0.2 mg/dL (Normal) Range: 0.2-1.0 Bilirubin Negative (Normal) Occult Blood 2+ (Abnormal) Ketones Negative (Normal) Glucose Negative (Normal) Protein 4+ (Abnormal) WBC Esterase Negative (Normal) Appearance Clear (Normal) Urine-Color Yellow (Normal) pH 7.0 (Normal) Range: 5.0-7.5 Specific [place] 1.026 (Normal) Range: 1.005-1.030 5-Gdj-001766:10 MICROALBUMIN: CREATININE RATIO Comments: PATIENT WAS FASTINGPERFORMED BY: [facility] [id number] (78083) AND (45986) Microalb/Creat Ratio 4548.7 {mg/g_creat} (Abnormal) Range: 0.0-30.0 Microalbumin, Urine 5463.0 ug/mL (Normal) Comments: Results confirmed ondilution. Creatinine, Urine 120.1 mg/dL (Normal) 9-Uky-787214:10 METABOLIC PANEL, COMPREHENSIVE Comments: PATIENT WAS FASTINGPERFORMED BY: [facility]6[address] [facility] [id number] (60804) ALT (SGPT) 42 [iU]/L (Abnormal) Range: 0-32 [...] Glucose, Serum 94 mg/dL (Normal) Range: 65-99 6-Ieu-691385:10 CBC W/AUTO DIFF WBC (59428) Comments: PATIENT WAS FASTINGPERFORMED BY: [facility]6[address] [facility] [id number] Immature Grans (Abs) 0.0 {x10E3/uL} (Normal) Range: [...] 3.77-5.28 WBC 12.2 {x10E3/uL} (Abnormal) Range: 3.4-10.8 7-Qqe-944363:10 LIPID PANEL (38534) Comments: PATIENT WAS FASTINGPERFORMED BY: [facility] [id number] LDL/HDL Ratio 3.1 {ratio_units} (Normal) Range: 0.0-3.2 Comments: LDL/HDL Ratio Men Women 1/2 Avg.Risk 1.0 1.5 Av g.Risk 3.6 3.2 2X Avg.Risk 6.2 5.0 3X Avg.Risk 8.0 6.1 LDL Cholesterol Calc 131 mg/dL (Abnormal) Range: 0-99 VLDL Cholesterol Juliocesar 66 mg/dL (Abnormal) Range: 5-40 HDL Cholesterol 42 mg/dL (Normal) Triglycerides 331 mg/dL (Abnormal) Range: 0-149 Cholesterol, Total 239 mg/dL (Abnormal) Range: 100-199 1-Ugb-434030:10 HEPATIC FUNCTION PANEL Comments: PATIENT WAS FASTINGPERFORMED BY: [facility] [id number] (35600) Bilirubin, Direct 0.07 mg/dL (Normal) Range: 0.00-0.40 1-Tie-464660:58 URINE BEULAH CULTURE-IDENTIFICATN Comments: PATIENT NOT FASTINGPERFORMED BY: [facility] [id number] Information: SRC: ([id number]) Antimicrobial MIHEAD (Normal) Comments: S = Susceptible; [...] mL (Abnormal) Urine Final report Culture,Comprehensive (Abnormal) 5-Yxu-047312:26 Rapid Flu (74233 x 2) Comments: neg Influenza A Ag negative (Normal) 0-Ayr-868202:23 Urinalysis, Office (09201) UA - LEUKOCYTE ESTERASE Trace (Normal) UA - NITRITE Negative (Normal) URINE UROBILINGN GENNA TIMED Normal mg/dL (Normal) UA - PROTEIN 300 mg/dL (Normal) UA - PH 6 (Abnormal) UA - BLOOD Hemolyzed Large (Normal) UA - SPECIFIC GRAVITY 1.015 (Normal) UA - KETONES Negative mg/dL (Normal) UA - BILIRUBIN Negative (Normal) UA - GLUCOSE Negative (Normal) 2-Omw-686907:02 Bedside Glucose Comments: [facility] [address] [place] [address] BEDSIDE GLU 105 mg/dL (Normal) Range: 70-110 Comments: No Action RequiredMANAGEMENT OF PATIENT CARE PER NURSING PROTOCOL 48-Ckz-194651:49 TSH (23477) Comments: PATIENT NOT FASTINGPERFORMED BY: TERI [facility]6[address] [facility] [id number] TSH 2.680 {uIU/mL} (Normal) Range: 0.450-4.500 32-Vjj-127346:49 T4, FREE (THYROXINE) (97456) Comments: PATIENT NOT FASTINGPERFORMED BY: [facility]6[address] [facility] [id number] T4,Free(Direct) 0.86 ng/dL (Normal) Range: 0.82-1.77 66-Tnt-343174:49 T3, FREE (TRIDOTHYRONINE) (55987) Comments: PATIENT NOT FASTINGPERFORMED BY: [facility] [address]gr[address] DescribeMeblin [place] [id number] Triiodothyronine,Free,Serum 3.0 pg/mL (Normal) Range: 2.0-4.4 06-Vix-22090:52 URINE BEULAH CULTURE-IDENTIFICATN Comments: PATIENT NOT FASTINGPERFORMED BY: [facility] Sjwpbb3113 [address] DescribeMeFormerly [facility] [id number] Information: SRC:ALEISHA (13988) Result 1 ECV (Abnormal) Comments: Escherichia coli, [...] report Culture,Comprehensi (Abnormal) ve :26 Urinalysis, Office (34785) UA - LEUKOCYTE ESTERASE Negative (Normal) UA - NITRITE Positive (Normal) URINE UROBILINGN GENNA TIMED Normal mg/dL (Normal) UA - PROTEIN 300 mg/dL (Normal) UA - PH 7 (Normal) UA - BLOOD Hemolyzed Large (Normal) UA - SPECIFIC GRAVITY 1.020 (Normal) UA - KETONES Negative mg/dL (Normal) UA - BILIRUBIN Negative (Normal) UA - GLUCOSE Negative (Normal) 78-Iql-107304:13 TSH (THYROID STIMULATING Comments: PATIENT WAS FASTINGPERFORMED BY: [facility] Yifsdb6828 [address] DescribeMeFormerly [facility] [id number] HORMONE) (29830) TSH 5.150 {uIU/mL} (Abnormal) Range: 0.450-4.500 :13 CALCIFEDIOL (25156) Comments: PATIENT WAS FASTINGPERFORMED BY: [facility]6[address] [facility] [id number] Vitamin D, 25-Hydroxy 14.9 ng/mL (Abnormal) Range: 30.0-100.0 Comments: Vitamin D deficiency has been defined by the [place] [facility] and an Endocrine Society practice guideline as alevel of serum 25-OH vitamin D less than 20 ng/mL (1,2).The Endocrine Society went on to further define vitamin Dinsufficiency as a level between 21 and 29 ng/mL (2).1. IOM ([place] of Medicine). 2010. Dietary reference intakes for calcium and D. [place]: The National Academies Press.2. Miles MF, Tri MITCHELL, Juan Francisco SHEETS, et al. Evaluation, treatment, and prevention of vitamin D deficiency: an Endocrine Society clinical practice guideline. JCEM. 2010; 96(7):1911-30. 67-Ler-205173:13 METABOLIC PANEL, COMPREHENSIVE Comments: PATIENT WAS FASTINGPERFORMED BY: [facility] CenterUicllt1451 [facility] [id number] (59420) ALT (SGPT) 30 [iU]/L (Normal) Range: 0-32 [...] Glucose, Serum 107 mg/dL (Abnormal) Range: 65-99 30-Dpy-998610:13 LIPID PANEL (50063) Comments: PATIENT WAS FASTINGPERFORMED BY: LUMI MaskFormerly [facility] [id number] LDL/HDL Ratio 3.2 {ratio_units} (Normal) Range: 0.0-3.2 Comments: LDL/HDL Ratio Men Women 1/2 Avg.Risk 1.0 1.5 Av g.Risk 3.6 3.2 2X Avg.Risk 6.2 5.0 3X Avg.Risk 8.0 6.1 LDL Cholesterol Calc 158 mg/dL (Abnormal) Range: 0-99 VLDL Cholesterol Juliocesar 65 mg/dL (Abnormal) Range: 5-40 HDL Cholesterol 50 mg/dL (Normal) Triglycerides 327 mg/dL (Abnormal) Range: 0-149 Cholesterol, Total 273 mg/dL (Abnormal) Range: 100-199 92-Uzy-220346:13 CBC with auto diff (10272) Comments: PATIENT WAS FASTINGPERFORMED BY: [employer]70 [employer] TherapeuticsFormerly [facility] [id number] Immature Grans (Abs) 0.0 {x10E3/uL} (Normal) Range: [...] 3.77-5.28 WBC 9.2 {x10E3/uL} (Normal) Range: 3.4-10.8 56-Riq-384231:13 HGB A1C (88702) Comments: PATIENT WAS FASTINGPERFORMED BY: LUMI MaskFormerly [facility] [id number] Hemoglobin A1c 6.4 % (Abnormal) Range: 4.8-5.6 Comments: . Pre-diabetes: 5.7 - 6.4 Diabetes: >6.4 Glycemic control for adults with diabetes: <7.0 :10 Urinalysis, Office (88541) UA - LEUKOCYTE ESTERASE Negative (Normal) UA - NITRITE Negative (Normal) URINE UROBILINGN GENNA TIMED Normal mg/dL (Normal) UA - PROTEIN 300 mg/dL (Normal) UA - PH 7 (Normal) UA - BLOOD Hemolyzed Large (Normal) UA - SPECIFIC GRAVITY 1.025 (Normal) UA - KETONES Negative mg/dL (Normal) UA - BILIRUBIN Negative (Normal) UA - GLUCOSE Negative (Normal) 05-Sag-741658:28 URINE BEULAH CULTURE-IDENTIFICATN Comments: PATIENT NOT FASTINGPERFORMED BY: [place] [facility]chipMon[facility] Medical CenterMyofvw4109 [address] [facility] [id number] Information: SRC: ([id number]) Result 1 ECV (Abnormal) Comments: Escherichia coli, [...] S Urine Final report Culture,Comprehensi (Abnormal) ve 72-Soh-948041:37 Urinalysis, Office (92260) UA - LEUKOCYTE ESTERASE Trace (Normal) UA - NITRITE Negative (Normal) URINE UROBILINGN GENNA TIMED Normal mg/dL (Normal) UA - PROTEIN 300 mg/dL (Normal) UA - PH 8.5 (Normal) UA - BLOOD Hemolyzed Large (Normal) UA - SPECIFIC GRAVITY 1.020 (Normal) UA - KETONES Negative mg/dL (Normal) UA - BILIRUBIN Negative (Normal) UA - GLUCOSE Negative (Normal) 09-Ebu-19058:52 Culture, Aerobic, Comments: PATIENT NOT FASTINGPERFORMED BY: [facility] Uuryla1402 [facility] [id number] Information: LEFT LEG SRC:FL Bacterial ID ([id number]) Antimicrobial MIHEAD (Normal) Comments: S = Susceptible; [...] Meropenem Aerobic Bacterial Final report (Abnormal) Culture 1-Akt-187357:48 HGB A1C (99850) Comments: PERFORMED BY: [employer] Errsnt7152 [facility] [id number] Hemoglobin A1c 6.3 % (Abnormal) Range: 4.8-5.6 Comments: . Pre-diabetes: 5.7 - 6.4 Diabetes: >6.4 Glycemic control for adults with diabetes: <7.0 :46 TSH (79349) Comments: PATIENT NOT FASTINGPERFORMED BY: [employer] Bvgjke3035 [facility] [id number] TSH 2.910 {uIU/mL} (Normal) Range: 0.450-4.500 :46 CBC WITH MANUAL DIFF (34489) Comments: PATIENT NOT FASTINGPERFORMED BY: [employer] Lpnaas0782 [facility] [id number] Immature Grans (Abs) 0.0 {x10E3/uL} (Normal) Range: [...] 3.77-5.28 WBC 10.3 {x10E3/uL} (Normal) Range: 3.4-10.8 58-Dds-912456:46 Metabolic Panel, Basic Comments: PATIENT NOT FASTINGPERFORMED BY: [facility]Co[facility] CenterGybddi9554 [facility] [id number] (71657) Calcium, Serum 8.6 mg/dL (Abnormal) Range: 8.7-10.2 [...] typeII,controlled, renal comp Pulmonary hypertension : Reviewed Concrete Boom Operator Letter Indication: Pulmonary hypertension Glomerulonephritis, IgA : Reviewed Concrete Boom Operator Letter Indication: Glomerulonephritis, IgA Hyperlipidemia, mild [...] Indication: Hypertension Proteinuria, unspecified type : Reviewed Con[employer] Boom Operator Letter Indication: Proteinuria, unspecified type Diabetes [...] Pulmonary hypertension, mild Glomerulonephritis, IgA : Reviewed Concrete Boom Operator Letter Indication: Glomerulonephritis, IgA Hypertension : [...] Flags Indication: Hypertension Glomerulonephritis, IgA : Reviewed Concrete Boom Operator Letter Indication: Glomerulonephritis, IgA Controlled type 2 diabetes mellitus without complication : *Diabetes Education Indication: Controlled type 2 diabetes mellitus without complication Fatty liver : Diet, Exercise, and Wt loss Indication: Fatty liver Abscess of buttock : Reviewed Concrete Boom Operator Letter- Dr Eng Indication: Abscess of buttock Pulmonary hypertension, mild : Reviewed Diagnostic Tests Indication: Pulmonary hypertension, mild Glomerulonephritis, IgA : Reviewed Concrete Boom Operator Letter Indication: Glomerulonephritis, IgA Hypertension : Continue Current Prescription(s) Indication: Hypertension Hypertension : HTN/CAD Red Flags Indication: Hypertension Chronic obstructive asthma with acute exacerbation (Renamed from Chronic obstructive asthma with exacerbation) : Reviewed Concrete Boom Operator Letter Indication: Chronic obstructive asthma with [...] of dvt Indication: Edema extremities Planned Observations Rapid Flu (88184 x 2)Indication: Fever and chills On: :27 Request CALCIFEDIOL (81622)Indication: Vitamin D deficiency On: :49 Request T4, FREE (THYROXINE) (18527)Indication: Adult hypothyroidism On: :49 Request T3, FREE (TRIDOTHYRONINE) (74991)Indication: Adult hypothyroidism On: :49 Request TSH (15602)Indication: Adult hypothyroidism On: :48 Request URINALYSIS, W/ MICRO (40160)Indication: Diabetes typeII,controlled, renal comp On: :48 Request MICROALBUMIN: CREATININE RATIO (44598) AND (18365)Indication: Diabetes typeII,controlled, renal comp On: :48 Request LIPOPROTEIN, BLD, BY NMR (50239)Indication: Diabetes typeII,controlled, renal comp On: :48 Request METABOLIC PANEL, COMPREHENSIVE (52852)Indication: Diabetes typeII,controlled, renal comp On: :48 Request CBC W/AUTO DIFF WBC (69207)Indication: Diabetes typeII,controlled, renal comp On: :48 Request HGB A1C (58784)Indication: Diabetes typeII,controlled, renal comp On: :47 Request Comments: do in o-january HGB A1C (69968)Indication: Diabetes typeII,controlled, renal comp On: :47 Request Comments: now METABOLIC PANEL, COMPREHENSIVE (30449)Indication: Itch of skin On: 74-Tbu-545569:29 Request URINALYSIS, W/ MICRO (61615)Indication: Hypertension On: :39 Request MICROALBUMIN: CREATININE RATIO (91097) AND (71877)Indication: Hypertension On: :39 Request CALCIFEDIOL (65680)Indication: Vitamin D deficiency On: :26 Request URINALYSIS, W/ MICRO (60647)Indication: Hypertension On: 96-Dkd-630238:22 Request MICROALBUMIN: CREATININE RATIO (82007) AND (32533)Indication: Hypertension On: :22 Request METABOLIC PANEL, COMPREHENSIVE (59851)Indication: Hypertension On: :22 Request CBC W/AUTO DIFF WBC (89641)Indication: Hypertension On: :22 Request LIPID PANEL (43966)Indication: Hyperlipidemia, mild On: 22-Ufi-637419:21 Request TSH (31564)Indication: Adult hypothyroidism On: : Request KIPIF-GTHBOKEJHDT-IZDDC (00854)Indication: Fatty liver On: 53-Fer-931104:01 Request URINALYSIS (21842)Indication: Hematuria On: 90-Nwm-687380:56 Request MICROALBUMIN 24 HOUR OR RANDOM (84719)Indication: Other proteinuria On: 98-Kzn-376910:52 Request Comments: 24 hr for protein CREATININE CLEARANCE (88214)Indication: Other proteinuria On: 33-Wmx-847650:52 Request MICROALBUMIN: CREATININE RATIO (92872) AND (09450)Indication: Controlled type 2 diabetes mellitus without complication On: 87-Pdi-499079:28 Request Metabolic Panel, Basic (23961)Indication: Skin sore On: 09-Kay-833528:22 Request Metabolic Panel, Basic ([id number])Indication: Edema extremities On: 23-Bul-874950:19 Request Planned Procedures Aerosol Treatment ([id number])By: Cristine On: 15-Apr-2018 Naomi Collazo DO, DO, Kathleen CXR PA & LAT ([id number])By: Cristine HAY, On: 15-Apr-2018 Intent Naomi Bautista DO Spirometry ([id number])By: Cristine HAY, On: 15-Apr-2018 Intent Naomi Bautista DO Rocephin Injection, 2 Gram On: 06-Feb-2018 Intent ([id number])By: Leticia Bernard DO Comments: lot: [id number]: ite/route: RGM and LGM (1 G given in each hip)amt: 2GVIS signed when applicableChelsFAM chowdary [place] GALLBLADDER ([id number])By: Cristine On: 29-Dec-2017 Naomi Collazo DO, DO, Kathleen Comments: attention CBD size -- h/o stent in past MAMMOGRAM BREAST BILATERAL On: 11-Dec-2017 Intent SCREENING DIGITAL ([id number])By: Naomi Colunga DO, DO, Kathleen Flu Vaccine (Quadrivalent) [id number]: On: 10-Dec-2017 Intent Naomi Colunga DO, DO, Comments: Lot #[id number]/[id number]-L dltd, IMDose prefilled syringegiven by:LINSEY Mcnulty reviewed and ABN signed Naomi X-RAY OF RIGHT HAND, TWO VIEWS On: 24-Sep-2017 Intent ([id number])By: Naomi Colunga DO Comments: send results to dr valles as well Naomi Colunga DO Radiology - Hand - LeftBy: Cristine On: 24-Sep-2017 Intent Naomi HAY DO, Kathleen Comments: send results to dr valles as well THYROID ULTRASOUND ([id number])By: On: 25-Jun-2017 Intent Naomi Colunga DO, DO, Kathleen Spirometry ([id number])By: Cristine HAY, On: 25-Jun-2017 Intent Naomi Bautista DO Comments: normal ELECTROCARDIOGRAM, COMPLETE (ECG) On: 25-Jun-2017 Intent ([id number])By: Naomi Colunga DO Comments: nsr no acute chg Naomi Colunga DO IV Needle placement (25394)By: On: 17-Jun-2017 Intent Rosaura Upton CNP INFUSION, NORMAL SALINE SOLUTION , On: 17-Jun-2017 Intent 1000 CC (Special Coverage Instructions Apply. See MCM: 2049) ([id number])By: Rosaura Upton CNP Phenergan Injection, up to 50 mg On: 17-Jun-2017 Intent ([id number])By: Rosaura Upton CNP Comments: 50mg given IM in left glut MeC Lot # [id number] Flu Vaccine (Quadrivalent) 99991Yq: On: 18-Dec-2016 Intent Naomi Colunga DO, DO, Comments: Lot:[id number]:09/22/17Amt:0.5mlRoute:IMSite: L DltdGiven By: LINSEY Bond signed Naomi SCREENING DIGITAL TOMOSYNTHESIS OF On: 05-Dec-2016 Intent BREAST ([id number])By: Naomi Colunga DO, DO, Kathleen THYROID ULTRASOUND ([id number])By: On: 31-May-2016 Intent Naomi Colunga DO, DO, Kathleen Spirometry ([id number])By: Cristine HAY, On: 25-Apr-2016 Intent Naomi Bautista DO Comments: good PNEUM VAC ADLT/IMUMNOSPR, SBC/INTRM On: 25-Apr-2016 Intent ([id number])By: Naomi Colunga DO Comments: pneumovaxlot:[id number]:08/24/17ite:lt deltroute:IMdose:.5mlD.DASHA Kat DO, Kathleen ELECTROCARDIOGRAM, COMPLETE (ECG) On: 25-Apr-2016 Intent ([id number])By: Naomi Colunga DO Comments: nsr no acute chg Naomi Colunga DO Flu Vaccine (Quadrivalent) [id number]: On: 24-Jan-2016 Intent Willy Kat Comments: FLUlot: [id number]:10/04/16site:Lt deltoidroute:IMdose:.5mlDEDASHA MCINTOSH Planned Medications INFUSION, NORMAL SALINE SOLUTION , [...] : Patient Instructions Indication: Edema extremities Encounters Review On: 15-Apr-2018 13:58 Encounter Reason: Cellulitis - Symptoms include pain (sore on the back of her leg), swelling, tenderness and warmth. Symptoms are located on the left leg and on the right leg. The patient describes the pain as burning. O nset was 1 day(s) ago. 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 I've seen Dr. Begum urologist in [place], but haven't seen him in [facility]. Had kidney failure in 2006. Encounter Diagnosis: [...] disease, Hypertension [facility] [employer] [facility] Yue Zapata; a guarantor
--- OUTSIDE RECORDS SUMMARY | 2018-06-27 05:44 | XMS RPT_ITS | Continuity of Care Document ---
:1970 Author Organization [facility] Address [address] [facility] [address] [place] [address] Phone Care Team Providers Name Role Phone Naomi Carrillo DO Unavailable Edmundo Parr MD Unavailable Tanphaichitr - Crum, Dre Unavailable Edy Galan DO Unavailable Reji Jorge Unavailable Unavailable ARLEN Franklin Unavailable Unavailable Leticia Bernard DO Zaida Unavailable Long Winsome MCKINLEY Unavailable Unavailable Renaldo Pimentel Unavailable Unavailable Unavailable Unavailable Problems Name Dates Details Abnormal urine odor (R82.90, 791.9) Status: Active [...] BMI 50.0-59.9, adult (Z68.43, V85.43) Status: Active Cellulitis (L03.90, 682.9) Status: Active Chronic asthma without complication, unspecified asthma severity, unspecified whether persistent (J45.909, 493.90) Status: Active Chronic obstructive asthma with acute exacerbation (Renamed from Chronic obstructive asthma with exacerbation) (J44.1, 493.22) Status: Active Controlled type 2 diabetes mellitus without complication (E11.9, 250.00) Status: Active Current smoker (F17.200, 305.1) Status: [...] Active Fatty liver (K76.0, 571.8) Status: Active Fibromyalgia (M79.7, 729.1) Status: Active Flu-like symptoms (R68.89, 780.99) Status: Active Glomerulonephritis, 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 old doc in [facility] , Status: Active Urinary incontinence in female (R32, 788.30) Comments: multifactorial -- stress / obestiy/ mobility/ rx lasix/ Status: Active UTI (urinary tract infection) (N39.0, 599.0) Status: Active Vitamin D deficiency (E55.9, 268.9) Status: Active Medications Name Dates Details Aspirin Adult Low Dose 81 MG Oral Tablet Delayed Release 1 (one) Tablet DR qd for 30 days Refills: 0 Ordered:24-Jan-2016 Jase Carrillo DO, DO, Kathleen Start : 24-Jan-2016 Active Bevespi Aerosphere 9-4.8 MCG/ACT Inhalation Aerosol uad (9-4.8 MCG/ACT) Active Cartia XT 240 MG Oral Capsule Extended Release 24 Hour 1 (one) Capsule qd for 0 days Quantity: 30 {Capsule} Refills: 3 Ordered:24-Oct-2017 Jase Carrillo DO, DO, Kathleen Start : 24-Oct-2017 Active Claritin 10 MG Oral Capsule 1 (one) Capsule Capsule daily for 0 days Quantity: 30 {Capsule} Refills: 0 Ordered:12-Aug-2016 Reji Jorge Start : 07-Aug-2016 Active Cyclobenzaprine HCl 10 MG Oral Tablet 1 (one) Tablet qd for 30 days Refills: 0 Ordered:24-Jan-2016 Jase Carrillo DO, DO, Kathleen Start : 24-Jan-2016 Active Doxycycline Hyclate 100 MG Oral Capsule 1 (one) Capsule bid for 0 days Quantity: 20 {Capsule} Refills: 0 Ordered:06-Feb-2018 Leticia Bernrad DO Start : 06-Feb-2018 Active DULoxetine HCl 60 MG Oral Capsule Delayed Release Particles 1 (one) Capsule qd for 0 days Quantity: 30 {Capsule} Refills: 2 Ordered:12-Sep-2017 Jase Carrillo DO, DO, Kathleen Start : 12-Sep-2017 Active HydroCHLOROthiazide 25 MG Oral Tablet 1 (one) Tablet Tablet qd for 0 days Quantity: 30 {Tablet} Refills: 2 Ordered:16-Oct-2017 Winsome Jaramillo LPN L Start : 16-Oct-2017 Active Imipramine HCl 50 MG Oral Tablet 1 (one) Tablet qd for 90 days Quantity: 90 {Tablet} Refills: 0 Ordered:12-Sep-2017 Jase Carrillo DO, DO, Kathleen Start : 12-Sep-2017 Active Losartan Potassium 100 MG Oral Tablet 2 (two) Tablet qd for 30 days Quantity: 60 {Tablet} Refills: 3 Ordered:17-Oct-2017 Jase Carrillo DO, DO, Kathleen Start : 17-Oct-2017 Active [place] 5-325 MG Oral Tablet 1 bid prn pain (5-325 MG) Active Omeprazole 40 MG Oral Capsule Delayed Release 1 (one) Capsule DR bid for 90 days Quantity: 180 {Capsule} Refills: 0 Ordered:29-Dec-2017 Jase Carrillo DO, DO, Kathleen Start : 29-Dec-2017 Active ProAir HFA 108 (90 Base) MCG/ACT Inhalation Aerosol Solution 2 (two) Puff Puff tid prn for 0 days Quantity: 1 {Inhaler} Refills: 0 Ordered:07-Aug-2016 Reji Jorge Start : 07-Aug-2016 Active Synthroid 50 MCG Oral Tablet 1 (one) Tablet qd for 30 days Quantity: 30 {Tablet} Refills: 3 Ordered:17-Dec-2017 Jase Carrillo DO, DO, Naomi Start : 17-Dec-2017 Active Tradjenta 5 MG Oral Tablet 1 (one) Tablet qd for 90 days Quantity: 90 {Tablet} Refills: 1 Ordered:13-Jan-2017 Cristine HAY IsabellaMilvia HAY Naomi Start : 13-Jan-2017 Active Tradjenta 5 MG Oral Tablet 1 (one) Tablet qd for 90 days Quantity: 90 {Tablet} Refills: 1 Ordered:13-Jan-2017 Cristine HAY IsabellaMilvia HAY Naomi Start : 13-Jan-2017 Active Tresiba FlexTouch 100 UNIT/ML Subcutaneous Solution Pen-injector 9 Unit Unit qam for 0 days Quantity: 1 {Box} Refills: 0 Ordered:16-Dec-2017 Analiliajuliana RISHIRosaura Start : 16-Dec-2017 Active Voltaren 1 % Transdermal Gel 1 qd (1 %) Active Advair Diskus 250-50 MCG/DOSE Inhalation Aerosol Powder Breath Activated 1 (one) Aero Pow Br Act bid for 30 days Quantity: 1 {Box} Refills: 0 Ordered:25-Apr-2016 Cristine HAYJase DO Naomi Start : 25-Apr-2016 End : 25-May-2016 Inactive Albuterol Sulfate (2.5 MG/3ML) 0.083% Inhalation Nebulization Solution 1 (one) Nebulized Soln prn for 30 days Refills: 0 Ordered:20-Mar-2016 Cristine HAYJase DO Naomi Start : 24-Jan-2016 End : 23-Feb-2016 Inactive [...] Start : 24-Jan-2016 End : 20-Mar-2016 Inactive Bactrim DS 800-160 MG Oral Tablet 1 (one) Tablet Tablet twice a day for 7 days Quantity: 14 {Tablet} Refills: 0 Ordered:08-Apr-2017 Hafsa Franklin LPN Start : 08-Apr-2017 End : 15-Apr-2017 Inactive Cephalexin 500 MG Oral Capsule 1 (one) Capsule qid for 3 days Refills: 0 Ordered:20-Mar-2016 Hafsa Franklin LPN Start : 24-Jan-2016 End : 20-Mar-2016 Inactive Cephalexin 500 MG Oral Tablet 1 (one) Tablet q6hr for 7 days Quantity: 28 {Tablet} Refills: 0 Ordered:10-Dec-2017 Jase Carrillo DO, DO, Kathleen Start : 10-Dec-2017 End : 17-Dec-2017 Inactive Cheratussin AC 100-10 MG/5ML Oral Syrup 1-2 Teaspoon Teaspoon qhs prn for 0 days Quantity: 6 {Ounce} Refills: 0 Ordered:22-Aug-2016 Hafsa Franklin LPN Start : 07-Aug-2016 End : 22-Aug-2016 Inactive Diclofenac Sodium 75 MG Oral Tablet Delayed Release 1 (one) Tablet DR qd for 30 days Refills: 0 Ordered:05-Dec-2016 Hafsa Franklin LPN Start : 24-Jan-2016 End : 05-Dec-2016 Inactive Medrol 4 MG Oral Tablet Therapy Pack 1 qd (4 MG) Inactive MetFORMIN HCl 500 MG Oral Tablet 1 (one) Tablet bid for 10 days Quantity: 20 {Tablet} Refills: 0 Ordered:24-Jan-2017 Reji Jorge Start : 24-Jan-2017 End : 03-Feb-2017 Inactive Promethazine HCl 25 MG Oral Tablet 1 (one) Tablet q8hrs prn nausea for 0 days Quantity: 15 {Tablet} Refills: 0 Ordered:25-Jun-2017 Hafsa Franklin LPN Start : 17-Jun-2017 End : 25-Jun-2017 Inactive Proventil HFA 108 (90 Base) MCG/ACT Inhalation Aerosol Solution 2 (two) puffs prn for 30 days Refills: 0 Ordered:20-Mar-2016 Jase Carrillo DO, DO, Kathleen Start : 24-Jan-2016 End [...] Quantity: 180 {Tablet} Refills: 0 Ordered:25-Jun-2017 Jase Carrillo DO, DO, Kathleen Start : 25-Jun-2017 End : 23-Sep-2017 Inactive TraMADol HCl 50 MG Oral Tablet 1 (one) Tablet Tablet qhs for 0 days Quantity: 30 {Tablet} Refills: 0 Ordered:05-Dec-2016 Hafsa Franklin LPN Start : 07-Aug-2016 End : 05-Dec-2016 Inactive Triamcinolone Acetonide 0.1 % External Cream 1 (one) Cream prn for 30 days Refills: 0 Ordered:20-Mar-2016 Jase Carrillo DO, DO, Kathleen Start : 24-Jan-2016 End : 23-Feb-2016 Inactive AmLODIPine Besylate 10 MG Oral Tablet 1 (one) Tablet qd for 90 days Quantity: 90 {Tablet} Refills: 3 Ordered:25-Apr-2016 Jase Carrillo DO, DO, Kathleen Start : 25-Apr-2016 End [...] (J30.9, 477.9) Status: Inactive as of 05-Dec-2016 BMI 60.0-69.9, adult (Z68.44, V85.44) Status: Inactive as of 05-Dec-2016 Body mass index 45.0-49.9, adult (Z68.42, V85.42) Status: Inactive as of 05-Dec-2016 Cellulitis of left lower extremity (L03.116, 682.6) Status: Inactive as of 25-Apr-2016 Chest pain, atypical (R07.89, 786.59) Status: Inactive as of 05-Dec-2016 Cough (R05, 786.2) Status: Inactive as of 05-Dec-2016 Dehydration (E86.0, [...] Comments: See Note; NOTES: [facility] [address] [place] [address] OFFICE VISIT Date of Service: 02/05/18 MR#: [id number] Acct: [id number] Name: JANIS PURVIS Rep #: [id number] : 1970 Provider: Albania Brenner Age/Sex: 47/F Location[place] [facility] Status: Signed Assessment AND Plan 1. Moderate [...] cessation. You may call the free hotline 3-169-CKJN-NOW. People who use this line are THREE [...] kidney failure and reports that recently her record searcher took her off of her diuretics. She [...] lb Intake Visit Reasons: 2 M FU Psychotherapist Social Worker Required: No Ac companied by: Family / [...] DAILY 08/31/16 [History Confirmed 02/05/18] Tiotr opium Sheldon [Spiriva 18 MCG] 1 puff INHALATION DAILY [...] Spent - greater than 10 minutes: Yes (03499) 02/05/18 1425 <Electronically signed by Albania Brenner GROMMET MACHINE OPERATORGianfrancoC> Date Gino Brenner NP-C Cosigner Signature: Date (if applicable) CC: Naomi Reyeson 02-Jan-2018 Pulmonary Function Report Comp Result: Comments: See Note; NOTES: [facility] Pulmonary Services/Neurology [address] [place] [address] MR#: [id number] Acct: [id number] Name: JANIS ZAPATA Rep #: [id number] : 0 1970 47 From: Say Rosa MD Referring Dr: Albania Brenner NP Status: REG CLI Ordering Dr: Date: Location: [facility] Sex: F C COMPLETE PULMONARY FUNCTION TEST INTERPRETATION Brief HPI: Patient is a 47 year old female, currently under the care of Albania Brenner, who presents to [facility] for complete pulmonary function tests secondary [...] CC: Say Rosa MD; Albania Brenner; Naomi Carrillo DO Date Dictated: 01/02/18605 Date Transcribed: 01/02/18605 Lead Sharepoint Developer: CAREN Signed 05-Dec-2017 Emergency Department Summary Result: Comments: See Note; NOTES: [facility] Medical Records Department [address] [place] [address] Emergency Department Summary 12/05/1751 MR#: [id number] Acct: [id number] Name: JANIS ZAPATA Rep #: [id number] : 1970 47 From: Alvarez Vu PCP: Naomi Carrillo DO Status: DEP ER - ER Visit Summary Date of Service: 12/05/17 Chief Complaint: Back pain History of Presen t Illness: The patient is a 47 F history of chronic lower back pain left hip pain for years. no new injuries. She sees pain management Dr. Valles. Has had injections in the past. She is on [place] 1-2 ta bs at night. History of [...] pain This note was gene rated with Turbulenz dictation software. It may contain incorrect words, spelling, and punctuation that were not noted in review of the chart prior to signing ED Disposition - Plan for ED Patient: Dispo sition: Home or Assisted Living Chief Complaint: Back Diagnosis: Chronic back pain, Chronic left hip pain Instructions: ED Chronic Pain Management Referrals: Naomi Carrillo DO [Primary Care Provider] - Keith Valles [NON-STAFF] - What to do if you have Problems For any increased pain, shortness of breath, bleeding, nausea or vomiting, chest pain, or any unexpected problems, contact your Primar y Care Provider. Call [facility] ([phone]) or report to the closest Emergency Room. Call 911 if necessary. 12/05/17 0843 <Electronically signed by Alvarez Vu> Date __ Alvarez Vu Cosigner Signature (If Indicated): Date CC: Naomi Carrillo DO 20-Oct-2017 Discharge Instruction Result: Comments: See Note; NOTES: [facility] Medical Records Department [address] [place] [address] Discharge Instruction 10/20/17 1410 MR#: [id number] Acct: [id number] Name: JANIS ZAPATA Rep #: [id number] : 1970 47 From: Estephania Shay MD PCP: Naomi Carrillo DO Status: [facility] ER ED Disposition - Plan for ED Patient: Chief Complaint: Abd Pain Instructions: ED Constipa tion Referrals: Naomi Carrillo DO [Primary Care Provider] - Kerrie Eng MD [STAFF PHYSICIAN] - Edmundo Parr MD [STAFF PHYSICIAN] - What to do if you have Problems For any increased pain, short ness of breath, bleeding, nausea or vomiting, chest pain, or any unexpected problems, contact your Primary Care Provider. Call [facility] ([phone]) or report to the closest Emergency Room. Ca ll 911 if necessary. 10/20/17 141 <Electronically signed by Estephania Shay MD> Date Estephania Shay MD Cosigner Signature (If Ind icated): Date CC: Naomi Carrillo DO 20-Oct-2017 Discharge Instruction Result: Comments: See Note; NOTES: [facility] Medical Records Department [address] [place] [address] Discharge Instruction 10/20/17 1409 MR#: [id number] Acct: [id number] Name: JANIS ZAPATA Rep #: [id number] : 1970 47 From: Estephania Shay MD PCP: Naomi Carrillo DO Status: REG ER ED Disposition - Plan for ED Patient: Chief Complaint: Abd Pain Instructions: ED Constipa tion Referrals: Naomi Carrillo DO [Primary Care Provider] - Edmundo Parr MD [STAFF PHYSICIAN] - Kerrie Eng MD [STAFF PHYSICIAN] - What to do if you have Problems For any increased pain, short ness of breath, bleeding, nausea or vomiting, chest pain, or any unexpected problems, contact your Primary Care Provider. Call [facility] ([phone]) or report to the closest Emergency Room. Ca ll 911 if necessary. 10/20/17 1410 <Electronically signed by Estephania Shay MD> Date Estephania Shay MD Cosigner Signature (If Ind icated): Date CC: Naomi Carrillo DO 20-Oct-2017 Emergency Department Summary Result: Comments: See Note; NOTES: [facility] Medical Records Department [address] [place] [address] Emergency Department Summary 10/20/17 1009 MR#: [id number] Acct: [id number] Name: JANIS ZAPATA Rep #: [id number] : 1970 47 From: Estephania Shay MD PCP: Naomi Carrillo DO Status: REG ER - ER Visit [...] pain, constipation This note was generated with Turbulenz dictation software. It may contain incorrect words, spelling, and punctuation that were not noted in review of the chart prior t o signing ED Disposition - Plan for ED Patient: Chief Complaint: Abd Pain Referrals: Naomi Carrillo DO [Primary Care Provider] - What to do if you have Problems For any increased pain, shortnes s of breath, bleeding, nausea or vomiting, chest pain, or any unexpected problems, contact your Primary Care Provider. Call [facility] ([phone]) or report to the closest Emergency Room. Call 911 if necessary. 10/20/17 1409 <Electronically signed by Estephania Shay MD> Date Estephania Shay MD Cosigner Signature (If Indica germain): Date CC: Naomi Carrillo DO 20-Oct-2017 Abdomen/Pelvis WITH Contrast Result: Comments: See Note; NOTES: [facility] Imaging Services [address] [place] [address] Abdomen/Pelvis WITH Contrast MR#: [id number] Acct: [id number] Name: JANIS ZAPATA Rep #: [id number] : 1970 F 47 From: Matt Beckwith MD PCP: Naomi Carrillo DO Status: [facility] ER Study: Abdomen/Pelvis WITH Contrast Date of Exam: 10/20/17 Exam# [id number] Ordering Dr: Grecia Shay MD STUDY: CT [...] Matt Beckwith MD at 13:14 EDT Tel [phone], Service support , CC: Estephania Shay MD; Naomi Carrillo DO Lead Sharepoint Developer: Signed 03-Oct-2017 6 Minute Walk Test Result: Comments: See Note; NOTES: [facility] Pulmonary Services/Neurology [address] [place] [address] MR#: [id number] Acct: [id number] Name: JANIS ZAPATA Rep #: [id number] : 1970 47 From: Say Rosa MD Referring Dr: Albania Brenner NP Date: Ordering Dr: Sex: F C Location: PSN PSN 6 Minute Walk Test - 6 Minute Walk Test 6 Minute Walk Test: 6 Minute Walk Test P SN:6-Minute Walk Test Start: 10/03/17 11:21 Freq: Status: Active Protocol: RESP.6MINW Document 10/03/17 10:55 [facility] [place] (Rec: 10/03/17 11:24 [facility] [place] [id number]) 6 Minute Walk Test Date Performed 10/03/17 [...] CC: Date Dictated: 10/03/171320 Date Transcribed: 10/03/171320 Lead Sharepoint Developer: Say Rosa Signed 07-Jul-2017 Operative Report Result: Comments: See Note; NOTES: [facility] Medical Records Department [address] [place] [address] Operative Report 07/07/17 112 MR#: [id number] Acct: [id number] Name: RUBEN ZAPATA Rep #: [id number] : 1970 47 From: Harry Gagnon MD PCP: Naomi Carrillo DO Status[place] [facility] [place] [address] Problem List (1) DDD (degenerative disc disease), [...] MD> Date Harry Gagnon MD CC: Harry Gagnno; Naomi Carrillo DO Signed 07-Jul-2017 Fluor Guidance for Spine Inj Result: Comments: See Note; NOTES: [facility] Imaging Services [address] [place] [address] Fluor Guidance for Spine Inj MR#: [id number] Acct: [id number] Name: JANIS ZAPATA Rep #: [id number] : 1970 F 47 From: Fabrizio Meade MD PCP: Naomi Carrillo DO Status: [facility] Study: Fluor Guidance for Spine Inj Date of Exam: 07/07/17 Exam# [id number] Ordering Dr: Harry Gagnon CLINICAL HISTORY: Female, [...] at 7:19 EDT Tel , Service support [phone], CC: Harry Gagnon; Naomi Carrillo DO Lead Sharepoint Developer: Signed 21-Jun-2017 Discharge Instruction Result: Comments: See Note; NOTES: [facility] Medical Records Department [address] [place] [address] Discharge Instruction 06/20/17 2228 MR#: [id number] Acct: [id number] Name: JANIS ZAPATA Rep #: [id number] : 1970 46 From: Harry Cortez MD PCP: Naomi Carrillo DO Status: REG ER ED Disposition - Plan for ED Patient: Disposition: Home or Assisted Living Chief Complaint : Diarrhea Instructions: Treating Diarrhea Prescriptions: Cephalexin [Keflex] 500 mg PO Q6 #30 cap Referrals: Naomi Carrillo DO [Primary Care Provider] - 3- 5 [...] your Primary Care Provider. Call [facility] ([phone]) or report to the closest Emergency Room. Call 911 if necessary. 06/21/17 0030 <Electron ically signed by Harry Cortez MD> Date Harry Cortez MD Cosigner Signature (If Indicated): Date CC: Naomi Carrillo DO 21-Jun-2017 Emergency Department Summary Result: Comments: See Note; NOTES: [facility] Medical Records Department [address] [place] [address] Emergency Department Summary 06/20/17 1839 MR#: [id number] Acct: [id number] Name: JANIS ZAPATA Rep #: [id number] : 1970 46 From: Harry Cortez MD PCP: Naomi Carrillo DO Status: REG ER - ER Visit Summary Date of Service: 06/20/17 Chief Complaint: Diarrhea History of Present Illness: The patient is a 46 F 3 of irritable bowel syndrome and evy-sssvbuo-exrbaezam diabetes along with renal insufficiency. Patient states [...] or toxic. She is in no ac [place] distress. H EENT exam dry mucous membranes [...] culture pending This note was generated with Turbulenz dictation software. It may con tain incorrect words, spelling, and punctuation that were not noted in review of the chart prior to signing ED Disposition - Plan for ED Patient: Chief Complaint: Diarrhea Referrals: Naomi Carrillo, DO [Primary Care Provider] - What to do if you have Problems For any increased pain, shortness of breath, bleeding, nausea or vomiting, chest pain, or any unexpected problems, contact your Primary Care Provider. Call [facility] ([phone]) or report to the closest Emergency Room. Call 911 if necessary. 06/21/17 0030 <Electronically signed by Harry Cortez MD> Date ____ Harry Cortez MD Cosigner Signature (If Indicated): Date CC: Naomi Carrillo DO 29-May-2017 Pulmonary Visit Report Result: Comments: See Note; NOTES: [facility] [address] [place] [address] OFFICE VISIT Date of Service: 05/29/17 MR#: [id number] Acct: [id number] Name: JANIS PURVIS Rep #: [id number] : 1970 Provider: Albania Brenner Age/Sex: 46/F Location[place] [facility] Status: Signed Assessment AND Plan 1. Pulmonary [...] as though the dyspnea has worsened. Sh teresa denies any chest pain or palpitations. She [...] Weight: 338 lb In take Visit Reasons: [facility] Vendor: Yidioteresa Accompanied by: Self Allergies amlodipine Allergy (Verified [...] PO DAILY 08/31/16 [History Confirmed 05/29/17] Tiotropium Sheldon [Spiriva 18 MCG] 1 puff INHALATION DAILY [...] Spent - greater than 10 minutes: Yes (44950) 05/29/17 1347 <Electronically signed by Albania BURDICK> Date Albania ALMENDAREZC Cosigner Signature : Date (if applicable) CC: Naomi Carrillo DO 16-Apr-2017 OT Functional Capacity Eval Result: Comments: See Note; NOTES: 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 Job required standing, lifing and bending. Pt states she left this job due to pain and the inability to perform her job duties safely. - Behavioral Behavioral: pt was coorperative during the assessment. - ADLS ADLS: Pt states she lives with her , son future [id number]-dd-sql and future step granddaughter. Home is a [...] use for toliting (toilet wi pe aide), cable strander, bed side comode, elevated toilet seat, sock [...] throughout 4/5 UB and LB strength Right Financial Planning Adviser Strength [place] ge: 63.33 Right Financial Planning Adviser Strength Percentile: 28% Left Financial Planning Adviser Strength Average: 50.00 Left Financial Planning Adviser Strength Percentile: 17% Right Lateral Pinch Average: [...] Kelly MOORE/Helene, CHT> 04/16/17 1612 CC: Naomi Carrillo DO Signed For Medicare only, by signing this I certify the plan of care. Physicians Signature Date 03-Apr-2017 Emergency Department Summary Result: Comments: See Note; NOTES: [facility] Medical Records Department [address] [place] [address] Emergency Department Summary 04/03/17 1527 MR#: [id number] Acct: [id number] Name: JANIS ZAPATA Rep #: [id number] : 1970 46 From: Ana Paula Mendieta MD PCP: Naomi Carrillo DO Status: DEP ER - ER Visit [...] 126/89. I discussed the case with Dr. Carrillo, her primary care physician. Patient will be discharged to follow-up as an outpatient. I did advise her if this ever occurs again, she is to come in to be evaluated at that time. Treatment Plan: [] Disposition: Discharge Impression: Reported leg weakness, improved This note was generated with Turbulenz dictation software. It may contain incorrect words, spelling, and punctuation that were not noted in review of the chart prior to signing ED Disposition - Plan for ED Patient: Chief Complaint: Lower Extremity Injury Referrals: Naomi Carrillo DO [Primary Care Provider] - What to do if you have Problems For any increased pain, shortness of breath, bleeding, nausea or vomiting, chest pain, or any unexpected problems, contact your Primary Care Provider. Call [facility] ([phone]) or report to the closest Emergency Room. Call 911 if necessary. 04/03/17 1720 <Electronically signed by Ana Paula Mendieta MD> Date Ana Paula Mendieta MD Cosigner Signature (If Indicated): Date CC: Naomi Carrillo DO 03-Apr-2017 Discharge Instruction Result: Comments: See Note; NOTES: [facility] Medical Records Department [address] [place] [address] Discharge Instruction 04/03/17 1532 MR#: [id number] Acct: [id number] Name: JANIS ZAPATA Rep #: [id number] : 1970 46 From: Ana Paula Mendieta MD PCP: Naomi Carrillo DO Status: REG ER ED Disposition - Plan for ED Patient: Disposition: Home or Assisted Living Chief Complaint : Lower Extremity Injury Instructions: ED Weakness [facility] Referrals: Naomi Carrillo DO [Primary Care Provider] - 1 Week What to do if you have Problems For any increased pain, shortness of breath, bl eeding, nausea or vomiting, chest pain, or any unexpected problems, contact your Primary Care Provider. Call [facility] ([phone]) or report to the closest Emergency Room. Call 911 if necessar y. 04/03/17 1534 <Electronically signed by Ana Paula Mendieta MD> Date Ana Paula Mendieta MD Cosigner Signature (If Indicated): Date CC: Naomi Cristine HAY 03-Apr-2017 Lumbar Spine 2 or 3 Views Result: Comments: See Note; NOTES: [facility] Imaging Services [address] [place] [address] Lumbar Spine 2 or 3 Views MR#: [id number] Acct: [id number] Name: JANIS ZAPATA Rep #: [id number] : 1970 F 46 From: Louise Francis MD PCP: Naomi Carrillo DO Status: REG ER Study: Lumbar Spine 2 or 3 Views Date of Exam: 04/03/17 Exam# [id number] Ordering Dr: Ana Paula Mendieta MD STUDY: [...] , CC: Ana Paula Mendieta MD; Naomi Carrillo DO Lead Sharepoint Developer: Signed 03-Apr-2017 Pelvis 1 or 2 Views Result: Comments: See Note; NOTES: [facility] Imaging Services [address] [place] [address] Pelvis 1 or 2 Views MR#: [id number] Acct: [id number] Name: JANIS ZAPATA Rep #: [id number] : 1970 F 46 From: Louise Francis MD PCP: Naomi Carrillo DO Status: REG ER Study: Pelvis 1 or 2 Views Date of Exam: 04/03/17 Exam# [id number] Ordering Dr: Ana Paula Mendieta MD STUDY: [...] MD at 14:15 EST , Service support [phone], CC: Ana Paula Mendieta MD; Naomi Carrillo DO Lead Sharepoint Developer: Signed 10-Feb-2017 Operative Report Result: Comments: See Note; NOTES: [facility] Medical Records Department [address] [place] [address] Operative Report 02/10/17 1112 MR#: [id number] Acct: [id number] Name: RUBEN ZAPATA Rep #: [id number] : 1970 46 From: Harry Gagnon MD PCP: Naomi Carrillo DO Status: REG SDC Y Location: [place] [address] Report of Operation Date of Procedure: 02/10/17 [...] Harry Gagnon MD CC: Harry Gagnon; Naomi Carrillo DO Signed 10-Feb-2017 Inj/Asp Aakash Jt Should/Hip/Knee Result: Comments: See Note; NOTES: [facility] Imaging Services [address] [place] [address] Inj/Asp Aakash Jt Should/Hip/Knee MR#: [id number] Acct: [id number] Name: FRANJANIS Luis Rep #: [id number] : 1970 F 46 From: Ministerio Vela MD PCP: Naomi Carrillo DO Status: [facility] Study: Inj/Asp Aakash Jt Should/Hip/Knee Date of Exam: 02/10/17 Exam# [id number] Ordering Dr: Harry jama MD STUDY: X-RAY [...] Service support , CC: Harry Gagnon; Naomi Carrillo DO Lead Sharepoint Developer: Signed 18-Dec-2016 SCREENING MAMM (CAD), BILAT Result: Comments: See Note; NOTES: [facility] Imaging Services [address] [place] [address] SCREENING MAMM (CAD), BILAT MR#: [id number] Acct: [id number] Name: JANIS ZAPATA Rep #: [id number] : 1970 F 46 From: Matt Beckwith MD PCP: Naomi Carrillo DO Status: REG CLI Study: SCREENING MAMM (CAD), BILAT Date of Exam: 12/18/16 Exam# [id number] Ordering Dr: Jd Carrillo DO MAMMOGRAPHY - BILATERAL SCREENING REASON FOR [...] biopsy of a clinically suspic ious abnormality. [id number] Electronically Signed: Matt Beckwith MD at 12:54 EDT Tel [phone], Service support , CC: Naomi Carrillo DO Lead Sharepoint Developer: Signed 16-Nov-2016 Echocardiogram Complete Result: Comments: See Note; NOTES: [facility] Cardiovascular Services [address] [place] [address] Echo Complete W/ Contrast 11/15/16 1357 MR#: [id number] Acct: [id number] Name: JANIS PURVIS Rep #: [id number] : 1970 46 From: Mukesh Gutierrez MD Attending Dr: Sharda Wylie PA-C Status: REG CLI Ordering Dr: Sharda Wylie PA-C Date: 11/15/16 Location: [facility] Sex: F C Admitted: Reason [...] Gutierrez MD CC: Sharda Wylie PA-C; Naomi Carrillo DO Date Dictated: 11/15/16 1357 Date Transcribed: 11/16/16 1153 Lead Sharepoint Developer: Signed 10-Nov-2016 Consultation Result: Comments: See Note; NOTES: [facility] Medical Records Department [address] [place] [address] Consultation 11/06/16 1831 MR#: [id number] Acct: [id number] Name: JANIS ZAPATA Rep #: [id number] : 1970 46 From: Kerrie Eng MD PCP: Naomi Carrillo DO Status: DEP ER Y Location: ED [...] - placement of drain in right b [facility] abscess Anesthesia - local 1% xylocaine with [...] Cosigner Signature (if applicable): Date CC: Naomi Carrillo DO Signed 07-Nov-2016 Emergency Department Summary Result: Comments: See Note; NOTES: [facility] Medical Records Department [address] [place] [address] Emergency Department Summary 11/06/161940 MR#: [id number] Acct: [id number] Name: JANIS ZAPATA Rep #: [id number] : 1970 46 From: Antione Barron MD PCP: Naomi Carrillo DO Status: DEP ER - ER Visit [...] mg 30 clindamycin 300 mg 40 and [place] is 20 is to recheck from Dr. Eng's note w rachaelin the next 2-3 days. Recheck sooner suggested by me for any worse pain fever chills nausea vomiting discharge Disposition: [Home] Impression: [] #1 acute perirectal abscess with I AND D by surgeon , #2 procedure sedation by ED physician ED Disposition - Plan for ED Patient: Chief Complaint: Abscess Instructions: ED Abscess IandD Prescriptions: Hydrocodone Bitart/Apap 5-325 [[place] 5/325] 1 - 2 tablet PO Q4H [...] your Primary Care Provider. Call [facility] ([phone]) or report to the closest Emergency Room. Call 911 if necessary. 11/07/16 0154 <Electronically signed by Antione Barron MD> Date Antione Barron MD Cosigner Signature (If Indicated): Date CC: Naomi Carrillo DO 06-Nov-2016 Discharge Instruction Result: Comments: See Note; NOTES: [facility] Medical Records Department [address] [place] [address] Discharge Instruction 11/06/16 1933 MR#: [id number] Acct: [id number] Name: JANIS ZAPATA Rep #: [id number] : 1970 46 From: Antione Barron MD PCP: Naomi Carrillo DO Status: REG ER ED Disposition - Plan for ED Patient: Chief Complaint: Abscess Instructions: ED Abscess IandD Prescriptions: Hydrocodone Bitart/Apap 5-325 [[place] 5/325] 1 - 2 tablet PO Q4H [...] your Primary Care Provider. Call [facility] ([phone]) or report to the closest Emergency Room. Call 911 if necessary. 11/06/161935 <Electronically signed by Antione Barron MD> Date Antione Barron MD Cosigner Signature (If Indicated): Date CC: Naomi Carrillo DO 06-Nov-2016 Discharge Instruction Result: Comments: See Note; NOTES: [facility] Medical Records Department [address] [place] [address] Instructions for Home/Discharge Instructions 11/06/16 1829 MR#: [id number] Acct: [id number] Name: JANIS ZAPATA Rep #: [id number] : 1970 46 From: Kerrie Eng MD PCP: Naomi Carrillo DO Status: REG ER Discharge Diet: No [...] Caplet] 1 tab PO DAILY 08/31/16 Tiotropium Sheldon [Spiriva 18 MCG] 1 puff INHALATION DAILY [...] Velasquez or - call When: Thurs or Fri, please call for day and time, thank you [phone] <Electronically signed by Kerrie Eng MD> Date Kerrie Eng MD CC: Naomi Carrillo DO 06-Nov-2016 Emergency Department Summary Result: Comments: See Note; NOTES: [facility] Medical Records Department [address] [place] [address] Emergency Department Summary 11/06/16 1521 MR#: [id number] Acct: [id number] Name: JANIS ZAPATA Rep #: [id number] : 1970 46 From: Antione Barron MD PCP: Naomi Carrillo DO Status: REG ER - ER Visit [...] ED Patient: Chief Complaint: Abscess Referrals: Naomi Carrillo DO [Primary Care Provider] - What to do if you have Problems For any increased pain, shortness of breath, bleeding, nausea or vom iting, chest pain, or any unexpected problems, contact your Primary Care Provider. Call [facility] ([phone]) or report to the closest Emergency Room. Call 911 if necessary. 11/06/16 1543 &a mp;#60;Electronically signed by Antione Barron MD> Date Antione Barron MD Cosigner Signature (If Indicated): Date CC: Naomi Carrillo DO 06-Nov-2016 Pelvis WITH IV Contrast Result: Comments: See Note; NOTES: [facility] Imaging Services [address] [place] [address] Pelvis WITH IV Contrast MR#: [id number] Acct: [id number] Name: JANIS ZAPATA Rep #: [id number] : 1970 F 46 From: Ana Paula Blum MD PCP: Naomi Carrillo DO Status: REG ER Study: Pelvis WITH IV Contrast Date of Exam: 11/06/16 Exam# [id number] Ordering Dr: Antione Barron MD STUDY: CT [...] Paula Blum MD at 16:55 EDT Tel [phone], S shagufta support , CC: Antione Barron MD; Naomi Carrillo DO Lead Sharepoint Developer: Signed 17-Oct-2016 Pulmonary Function Report Comp Result: Comments: See Note; NOTES: [facility] Pulmonary Services/Neurology [address] [place] [address] MR#: [id number] Acct: [id number] Name: AJNIS ZAPATA Rep #: [id number] : 0 1970 46 From: Say Rosa MD Referring Dr: Jeremias Gonsalez D.O. Status: REG CLI Ordering Dr: Date: Location: PSN Sex: F C Pulmonary Function Report Comp Pulmonary Function Report Comp: COMPLETE PULMONARY FUNCTION TEST INTERPRETATION Brief HPI: Patient is a 46 year old female, currently under the care of Dr. Gonsalez, who presents to [facility] for complete pulmonary fu nction tests [...] Rosa MD CC: Say levy MD; Naomi Carrillo DO Date Dictated: 10/17/161622 Date Transcribed: 10/17/161622 Lead Sharepoint Developer: CAREN Signed 04-Oct-2016 6 Minute Walk Test Result: Comments: See Note; NOTES: [facility] Pulmonary Services/Neurology [address] [place] [address] MR#: [id number] Acct: [id number] Name: JANIS ZAPATA Rep #: [id number] : 1970 46 From: Say Rosa MD Referring Dr: Jeremias Gonsalez D.O. Date: Ordering Dr: Sex: F C Location: [facility] PSN 6 Minute Walk Test - 6 Minute Walk Test 6 Minute Walk Test: 6 Minute Walk Test PSN :6-Minute Walk Test Start: 10/04/16 12:48 Freq: Status: Active Document 10/04/16 12:48 DWP (Rec: 10/04/16 12:56 DWP [id number]) 6 Minute Walk Test Date Performed 10/04/16 [...] CC: Date Dictated: 10/04/161806 Date Transcribed: 10/04/161806 Lead Sharepoint Developer: Say Rosa Signed 17-Sep-2016 Chest 1 View Result: Comments: See Note; NOTES: [facility] Imaging Services [address] [place] [address] Verdana 4d Chest 1 View MR#: [id number] Acct: [id number] Name: JANIS ZAPATA Rep #: [id number] : 1970 F 46 From: Fabrizio Meade MD PCP: Naomi Carrillo DO Status: REG CLI Study: Chest 1 View Date of Exam: 09/17/16 Exam# [id number] Ordering Dr: Fabrizio Meade MD STUDY: X-RAY [...] support , CC: Fabrizio Meade MD; Naomi Carrillo DO Lead Sharepoint Developer: Signed 17-Sep-2016 Biopsy/Inj or Needle Placement Result: Comments: See Note; NOTES: [facility] Imaging Services [address] [place] [address] Verdana 4d Biopsy/Inj or Needle Placement MR#: [id number] Acct: [id number] Name: FREDY ZAPATA Rep #: [id number] : 1970 F 46 From: Fabrizio Meade MD PCP: Naomi Carrillo DO Status: REG CLI Study: Biopsy/Inj or Needle Placement Date of Exam: 09/17/16 Exam# [id number] Ordering Dr: Ximena Slater MD PROCEDURE: CT-GUIDED [...] support , CC: Vibha Larson M.D.; Naomi Carrillo DO Lead Sharepoint Developer: Signed 31-Aug-2016 Chest PA and Lateral Result: Comments: See Note; NOTES: [facility] Imaging Services [address] [place] [address] Verdana 4d Chest PA and Lateral MR#: [id number] Acct: [id number] Name: JANIS ZAPATA Rep #: [id number] : 1970 F 46 From: Jesús Mcconnell MD PCP: Naomi Carrillo DO Status: REG ER Study: Chest PA and Lateral Date of Exam: 08/31/16 Exam# [id number] Ordering Dr: Fatimah Rene STUDY: X- RAY [...] Service support , CC: Fatimah Rene; Naomi Carrillo DO Lead Sharepoint Developer: Signed 29-Aug-2016 Operative Report Result: Comments: See Note; NOTES: [facility] Medical Records Department [address] [place] [address] Operative Report MR#: [id number] Acct: [id number] Name: JANIS ZAPATA Rep #: [id number] : 1970 46 From: Harry Gagnon MD PCP: Naomi Carrillo DO Status: [facility] DATE OF SERVICE: 08/05/2016 DATE OF PROCEDURE: [...] indicated. Harry Gagnon MD T: NTS JOB: [id number] 08/29/16 1633 <Electronically signed by Harry Gagnon MD> Date ___ Harry Gagnon MD Cosigner Signature (If Indicated): Date CC: Harry Carrillo DO Date Dictated: 08/05/16 120 Date Trans cribed: 08/05/16 120 Lead Sharepoint Developer: Signed 15-Aug-2016 PT D/C Summary (1) Result: Comments: See Note; NOTES: [facility] Physical Therapy [facility] [address] [place] [address]. [address] [place] [address] Fax REHABILITATION SERVICES CELSAAR GE SUMMARY MR#: [id number] Acct: [id number] Name: JANIS ZAPATA Rep #: [id number] : 1970 46 From: Marguerite Haq DPT Referring Dr.: Leticia Bernard DO Status: REG RCR Insurance: [employer] [place] [facility] - PT D/C Summary [...] almost pain free. Left hip: 09/14 Knees: 7/10. Loves the pool but the [...] please feel free to call me at [phone]. Thank you for the referral of this patient. Sincerely, Marguerite Haq <Electronically signed by Marguerite Haq DPT> 08/15/16 1053 CC: Leticia Carrillo DO ELR Signed 05-Aug-2016 OR-Steroi/Epid Inj/Lum Sac/1st Result: Comments: See Note; NOTES: [facility] Imaging Services [address] [place] [address] Verdana 4d OR-Steroi/Epid Inj/Lum Sac/1st MR#: [id number] Acct: [id number] Name: FREDY ZAPATA Rep #: [id number] : 1970 F 46 From: Matt Beckwith MD PCP: Naomi Carrillo DO Status: [facility] Study: OR-Steroi/Epid Inj/Lum Sac/1st Date of Exam: 08/05/16 Exam# [id number] Ordering Dr : Harry Gagnon MD PROCEDURE: Caudal block. DATE OF EXAMINATION: August 05, 2016. INDICATION: Female, 46 years old. A caudal block was performed by the pain management physician. RAD/OR-Steroi/Epid Inj/Lum Sac/1st IMPRESSION: Fluoroscopic services provided for caudal block. Electronically Signed: Matt Beckwith MD at 15:16 EDT Tel [phone], Service support , CC: Harry Gagnon; Naomi Carrillo DO Lead Sharepoint Developer: Signed 25-Jul-2016 Re-Evaluation - PT (1) Result: Comments: See Note; NOTES: [facility] Physical Therapy [facility] [place] [address] Fax REEVALUATION / MEDICARE RECERTI FICATION [place] 4d PHYSICAL THERAPY MR#: [id number] Acct: [id number] Name: FRANJANIS SMYTH Luis Rep #: [id number] : 1970 46 From: Marguerite KONGT Referring DrYaneth: Leticia Bernard DO Status: REG RCR Ins urance: [facility] Leticia Bernard, DO, It has been my pleasure to [...] she is waiting for a phone call. [place] the knee/hip injections helped. Feels that the [...] do not hesitate to contact me at [phone] by phone or if you have questions or concerns regarding this new plan of care! Sincerely, Marguerite Haq <Electronically signed by Marguerite Haq DPT> 07/25/16 1609 CC: Leticia Bernard DO; Naomi Carrillo DO ELR Signed For Medicare only, by signing this I certify the plan of care. Physicians Signature Date 15-Jul-2016 L/S Spine Min 4 Views Result: Comments: See Note; NOTES: [facility] Imaging Services [address] [place] [address] Verdana 4d L/S Spine Min 4 Views MR#: [id number] Acct: [id number] Name: JANIS ZAPATA p #: [id number] : 1970 F 46 From: Aaron Glasgow MD PCP: Naomi Carrillo DO Status: REG CLI Study: L/S Spine Min 4 Views Date of Exam: 07/15/16 Exam# [id number] Ordering Dr: Daniella Sharp GROMMET MACHINE OPERATOR-C STUDY: X-RAY - LUMBAR SPINE REASON FOR [...] at 12:48 EDT Tel , Service support [phone], CC: Carlotta Sharp; Naomi Carrillo DO Lead Sharepoint Developer: Signed 24-Jun-2016 Knee 4 or More Views Result: Comments: See Note; NOTES: [facility] Imaging Services [address] [place] [address] Verdana 4d Knee 4 or More Views MR#: [id number] Acct: [id number] Name: JANIS ZAPATA Rep # : [id number] : 1970 F 45 From: Jesús Mcconnell MD PCP: Naomi Carrillo DO Status: [facility] RCR Study: Knee 4 or More Views Date of Exam: 06/24/16 Exam# [id number] Ordering Dr: Carlotta Sharp STUD Y: X-RAY [...] at 3:27 EDT Tel , Service support [phone], CC: Carlotta Sharp; Naomi Carrillo DO Lead Sharepoint Developer: Signed 24-Jun-2016 Knee 4 or More Views Result: Comments: See Note; NOTES: [facility] Imaging Services [address] [place] [address] Verdana 4d Knee 4 or More Views MR#: [id number] Acct: [id number] Name: JANIS ZAPATA Rep # : [id number] : 1970 F 45 From: Jesús Mcconnell MD PCP: Naomi Carrillo DO Status: REG RCR Study: Knee 4 or More Views Date of Exam: 06/24/16 Exam# [id number] Ordering Dr: Carlotta Sharp STUD Y: X-RAY [...] at 3:30 EDT Tel , Service support [phone], CC: Carlotta Sharp; Naomi Carrillo DO Lead Sharepoint Developer: Signed 04-Jun-2016 Inital Evaluation (1) - PT Result: Comments: See Note; NOTES: [facility] Physical Therapy [facility] [address] [place] [address] Fax REHABILITATION SERVICES INITIAL EVALUATION MR#: [id number] Acct: [id number] Name: JANIS ZAPATA Rep #: [id number] : 1970 45 From: Marguerite Haq DPT Referring Dr.: Carlotta Sharp Status: REG R Insurance: [facility] Patient's Visit Information JANIS ZAPATA [...] to be FAXED BACK to us at [phone] for Medicare purposes. Please let me know if there are questions or concerns regarding this plan of care. Physician Signature: Date: <Electronically signed by Marguerite Haq DPT> 06/04/16 9785 CC: Carlotta Kirkland ; Naomi Carrillo DO ELR Signed For Medicare only, by signing this I certify the plan of care. Physicians Signature Date 04-Jun-2016 Thyroid Result: Comments: See Note; NOTES: [facility] Imaging Services [address] [place] [address] Verdana 4d Thyroid MR#: [id number] Acct: [id number] Name: JANIS ZAPATA Rep #: [id number] OB: 1970 F 45 From: Shaggy Jean DO PCP: Naomi Carrillo DO Status: REG CLI Study: Thyroid Date of Exam: 06/04/16 Exam# [id number] Ordering Dr: Naomi Carrillo DO STUDY: THYROID ULTRASOUND REAS ON FOR [...] DO at 20:11 EST Tel , S shagufta support [phone], CC: Naomi Carrillo DO Lead Sharepoint Developer: Signed 27-May-2016 Operative Report Result: Comments: See Note; NOTES: [facility] Medical Records Department [address] [place] [address] Operative Report MR#: [id number] Acct: [id number] Name: JANIS ZAPATA Rep #: [id number] : 1970 45 From: Harry Gagnon MD PCP: Naomi Carrillo DO Status: [facility] DATE OF SERVICE: 05/13/2016 DATE OF SERVICE: [...] indicated. Harry Gagnon MD T: NTS JOB: [id number] 05/27/16 1356 <Electronically signed by Harry Gagnon MD> Date __ Harry Gagnon MD Cosigner Signature (If Indicated): Date CC: Harry Gagnon; Naomi Ames Date Dictated: 05/13/16 1118 Date Transcribed: 05/13/16 1118 Lead Sharepoint Developer: Signed 13-May-2016 Inj/Asp Aakash Jt Should/Hip/Knee Result: Comments: See Note; NOTES: [facility] Imaging Services [address] [place] [address] Verdana 4d Inj/Asp Aakash Jt Should/Hip/Knee MR#: [id number] Acct: [id number] Name: FREDY ZAPATA Rep #: [id number] : 1970 F 45 From: Matt Beckwith MD PCP: Naomi Carrillo DO Status: [facility] Study: Inj/Asp Aakash Jt Should/Hip/Knee Date of Exam: 05/13/16 Exam# [id number] Ordering Dr: Harry Gagnon MD STUDY: INJECTION [...] Matt Beckwith MD at 13:45 EST Tel [phone], Service support [phone], Fax CC: Harry Gagnon; Naomi Carrillo DO Lead Sharepoint Developer: Signed Family History Unknown Family Member Name [...] Active Vital Signs Date Test Result Details :26 Temperature 97.2 f Comments: Method: Temporal [...] kg/m2 Body Surface Area Calculated 2.4 m2 2-Vru-487004:00 Pulse 107 /min Comments: Pattern: Regular Respiration [...] kg/m2 Body Surface Area Calculated 2.48 m2 12-Sbz-966892:15 Pulse 116 /min Comments: Pattern: Regular O2 [...] 2.46 m2 Results Date Description Value Details 92-Ffk-304826:17 Amylase 22 U/L Comments: PATIENT NOT FASTINGPERFORMED BY: CB [facility] [id number] [place] [id number] (Abnormal) Range: 31-124 69-Gvv-391085:17 Lipase 34 U/L (Normal) Comments: PATIENT NOT FASTINGPERFORMED BY: CB [facility] Brzpow[address] [place] [id number] Range: 14-72 15-Nzu-078232:17 Written Authorization WAR (Normal) Comments: PATIENT NOT FASTINGPERFORMED BY: CB [facility] Tr[address]xzt[address] Road[address] [place] [id number] Comments: Written Authorization Received.Authorization received from REJI SOMERS [phone] by Violet Gong 02-Fip-503970:17 C-REACTIVE PROTEIN (80505) Comments: PATIENT NOT FASTINGPERFORMED BY: CB [facility] [address] [place] [id number] C-Reactive Protein, Quant 17.9 mg/L (Abnormal) Range: 0.0-4.9 69-Qaj-099652:17 SED RATE ERYTHROCYTE (03972) Comments: PATIENT NOT FASTINGPERFORMED BY: [facility] Noyjir[address] RoadEcu [facility] [place] [id number] Sedimentation Rate-Westergren 77 mm/h (Abnormal) Range: 0-32 05-Wns-170019:17 CBC W/AUTO DIFF WBC (26213) Comments: PATIENT NOT FASTINGPERFORMED BY: [facility] [facility] [id number] Immature Grans (Abs) 0.0 {x10E3/uL} (Normal) Range: [...] 3.77-5.28 WBC 11.1 {x10E3/uL} (Abnormal) Range: 3.4-10.8 81-Ngn-243995:17 METABOLIC PANEL, COMPREHENSIVE Comments: PATIENT NOT FASTINGPERFORMED BY: [facility] [facility] [id number] (32719) ALT (SGPT) 35 [iU]/L (Abnormal) Range: 0-32 [...] 6-24 Glucose 124 mg/dL (Abnormal) Range: 65-99 49-Mli-345042:45 CBC-Complete Blood Cnt No Diff Comments: [facility] [address] [place], [address] MPV 10.5 fL (Normal) Range: 6.2-12.0 PLT [...] 4.2-5.4 WBC 11.0 K/mm3 (Normal) Range: 4.4-11.0 74-Ypw-411710:45 Protein+Creatinine Ratio,Urine Comments: [facility] [address] [place], [address] PROT:CRE RATIO 2991 {mg/g_CRE} (Abnormal) Range: 0-200 PROTEIN,UR.RAN. 193.2 mg/dL (Abnormal) UR CREAT 64.60 mg/dL (Normal) 10-Ohf-257470:45 PTHIN 38.7 pg/mL (Normal) Comments: [facility] [address] [place], [id number] Range: 18.4-80.1 93-Izr-788421:45 Renal Profile Comments: [facility] [address] [place], [address] CO2 25.0 mmol/L (Normal) Range: 21.0-32.0 CL [...] criteria.Please note revised GLUCOSE reference range /02/2018. 40-Vrn-817501:45 Vitamin D,25 Hydroxy Comments: [facility] [address] [place], [address] Vitamin D 25-OH 36.6 ng/mL (Normal) Range: 29.95-100.01 Comments: Vitamin D 25(OH) Status Range Deficiency <20 ng/mL (50nmol/L) Insuffciency 20 - 30 ng/mL (50 - 75 nmol/L) Sufficiency 30 - 100 ng/mL (75 - 250 nmol/L) Toxicity >100 ng/mL (>250 nmol/L) 4-Ojs-134015:17 Hemoglobin A1c Comments: [facility] [address] [place], [address] HGB A1C 6.4 % (Abnormal) Range: 4.2-6.3 9-Kdb-219381:11 CBC-Complete Blood Cnt No Diff Comments: [facility] [address] [place], [address] MPV 10.1 fL [...] 4.2-5.4 WBC 8.1 K/mm3 (Normal) Range: 4.4-11.0 3-Kwv-819960:11 Protein+Creatinine Ratio,Urine Comments: [facility] [address] [place], [address] PROT:CRE RATIO 1973 {mg/g_CRE} (Abnormal) Range: 0-200 PROTEIN,UR.RAN. 133.6 mg/dL (Abnormal) UR CREAT 67.70 mg/dL (Normal) 4-Unq-777467:11 PTHIN 22.2 pg/mL (Normal) Comments: [facility] [address], [id number] Range: 18.4-80.1 2-Yho-244863:11 Renal Profile Comments: [facility] [address] [place], [address] CO2 24.0 mmol/L (Normal) Range: 21.0-32.0 [...] A.D.A. criteria.Please note revised GLUCOSE reference range rqqcvfyow28/02/2018. 4-Vor-158527:11 Vitamin D,25 Hydroxy Comments: [facility] [address] [place], [id number] Vitamin D 25-OH 42.2 ng/mL (Normal) Range: 29.95-100.01 Comments: Vitamin D 25(OH) Status Range Deficiency <20 ng/mL (50nmol/L) Insuffciency 20 - 30 ng/mL (50 - 75 nmol/L) Sufficiency 30 - 100 ng/mL (75 - 250 nmol/L) Toxicity >100 ng/mL (>250 nmol/L) 43-Sou-814494:20 Urinalysis, Complete Comments: Order Date: 10/20/17Has pt arrived? YHow was Urine Obtained? [facility] [address] [place], [place], [id number] MUCUS, URINE 0 SEEN {/hpf} (Normal) BACTERIA [...] (Normal) CLARITY Clear (Normal) COLOR Yellow (Normal) 81-Fem-531683:20 CBC W/Diff, Automated Comments: [facility] [address]du[address] [place], [place], [phone] Absolute Lymph 2.39 {X10_3/ul} (Normal) Range: 0.83-4.51 [...] 4.2-5.4 WBC 7.0 K/mm3 (Normal) Range: 4.4-11.0 02-Tsm-178370:20 Comprehensive Metabolic Profil Comments: [facility] Jimmpyndwt5234 [address] [place], [place], [address] GAP 10 (Normal) Range: 5-15 CO2 25.0 [...] A.D.A. criteria.Please note revised GLUCOSE reference range dgoizmhga95/02/2018. 0-Yol-085004:52 Culture, Urine Comments: [facility] Ypdymqecck[address] [place], [place], [phone] CUUR See Note (Normal) Comments: Urine CultureORGANISM [...] $ <=20 S(NF) indicates non-formulary drug at [facility]. Approval by Infectious Disease Specialist required before non-formulary drugs may be ordered and/or dispensed. 30-Zyv-718110:38 CBC-Complete Blood Cnt No Diff Comments: [facility] Ojppizsgya[address] [place], [place], [address] MPV 10.3 fL (Normal) Range: 6.2-12.0 PLT [...] (Normal) Range: 4.4-11.0 :38 Protein+Creatinine Ratio,Urine Comments: [facility] [address] [place], [place], [address] PROT:CRE RATIO 2487 {mg/g_CRE} (Abnormal) Range: 0-200 PROTEIN,UR.RAN. 318.3 mg/dL (Abnormal) UR CREAT 128.00 mg/dL (Normal) :38 PTHIN 32.3 pg/mL (Normal) Comments: [facility] [address] [place], [place], [address] Range: 18.4-80.1 60-Tch-731268:38 Renal Profile Comments: [facility] [address] [place], [place], [address] CO2 24.0 mmol/L (Normal) Range: 21.0-32.0 CL [...] A.D.A. criteria.Please note revised GLUCOSE reference range sqbhcbhci65/02/2018. 69-Igc-952849:38 Vitamin D,25 Hydroxy Comments: [facility] [address] [place], [address] Vitamin D 25-OH 38.5 ng/mL (Normal) Range: 29.95-100.01 Comments: Vitamin D 25(OH) Status Range Deficiency <20 ng/mL (50nmol/L) Insuffciency 20 - 30 ng/mL (50 - 75 nmol/L) Sufficiency 30 - 100 ng/mL (75 - 250 nmol/L) Toxicity >100 ng/mL (>250 nmol/L) 18-Ago-997020:35 Comprehensive Metabolic Profil Comments: [facility] [address] [place], [address] GAP 9 (Normal) Range: 5-15 CO2 26.0 [...] A.D.A. criteria.Please note revised GLUCOSE reference range gighxmesn47/02/2018. 07-Jul-20179:31 Bedside Glucose Comments: [facility] LaboratoryPoint of [address]ypd[address] [place], [place] [address] BEDSIDE GLU 133 mg/dL (Abnormal) Range: 70-110 Comments: MANAGEMENT OF PATIENT CARE PER NURSING PROTOCOL 37-Ldw-450690:01 HGB A1C (36771) Comments: PATIENT WAS FASTINGPERFORMED BY: [facility] SomersetNxzvtr0681 [facility] [id number] Hemoglobin A1c 6.2 % (Abnormal) Range: 4.8-5.6 Comments: . Pre-diabetes: 5.7 - 6.4 Diabetes: >6.4 Glycemic control for adults with diabetes: <7.0 35-Ejc-582323:00 Basic Metabolic Profile (BMP) Comments: [facility] Deyytkkhsc8312 [facility] [place], [place], [address] GAP 10 (Normal) Range: 5-15 CO2 22.0 [...] A.D.A. criteria.Please note revised GLUCOSE reference range isblxztho27/02/2018. 73-Fqa-097596:00 CBC W/Diff, Automated Comments: [facility] [address]kl[address] [place], [place], [address] SMEAR COMMENT SCANNED (Normal) Absolute Lymph 4.73 [...] 4.2-5.4 WBC 11.2 K/mm3 (Abnormal) Range: 4.4-11.0 82-Iop-633462:00 Urinalysis, Complete Comments: Order Date: 06/20/17Has pt arrived? YHow was Urine Obtained? CLEAN [facility] Frvdqxsqjb[address] [place], [place], [address] MUCUS, URINE 0 SEEN {/hpf} (Normal) BACTERIA [...] CLARITY Sl. Cloudy (Normal) COLOR Yellow (Normal) 28-Jun-56164:33 Influenza A&B Viral Comments: PATIENT NOT FASTINGPERFORMED BY: [facility] Skduer9249 [facility] [id number] Information: SRC:NL Culture (45497) Viral Culture,Rapid,Influenza FLUABN (Normal) Comments: Negative:No Influenza A or B detected. 05-Yjt-632665:38 Blood Glucose , Office (43679) Blood Glucose , Office 123 (Normal) 96-Pou-289833:04 Basic Metabolic Profile (BMP) Comments: [facility] Tezqurjxge[address] [place], [address] GAP 10 (Normal) Range: 5-15 CO2 24.0 [...] A.D.A. criteria.Please note revised GLUCOSE reference range euongexqa52/02/2018. 14-Pvp-818100:04 Microalb:Creat Ratio,Random UR Comments: [facility] [address] [place], [place], [address] MALB:CREAT 2009.4 {mg/g_CRE} (Abnormal) MICROALBUMIN,UR 2150.0 mg/L (Normal) UR CREAT 107.00 mg/dL (Normal) 83-Axm-985932:08 Basic Metabolic Profile (BMP) Comments: [facility] [address]quks[address] [place], [place], [address] GAP 7 (Normal) Range: 5-15 CO2 26.0 [...] 7-18 GLU 92 mg/dL (Normal) Range: 70-110 09-Cbq-671127:08 CBC W/Diff, Automated Comments: [facility] [address] [place], [place], [address] Absolute Lymph 2.98 {X10_3/ul} (Normal) Range: 0.83-4.51 [...] 4.2-5.4 WBC 8.3 K/mm3 (Normal) Range: 4.4-11.0 23-Rcp-757607:08 CPK Total, Creatine Kinase Comments: [facility] [address] [place], [address] CPK TOTAL 79 U/L (Normal) Range: 26-192 87-Btl-950698:46 URINE BEULAH CULTURE-IDENTIFICATN Comments: PATIENT NOT FASTINGPERFORMED BY: [facility] Imuxxh6000 [facility] [id number] Information: SRC:ALEISHA (63496) Result 2 BETAGB (Abnormal) Comments: Beta hemolytic [...] per mL (Abnormal) Urine Final report (Abnormal) Culture,Comprehsarah hines 43-Gpv-993768:49 Urinalysis, Office (99390) UA - LEUKOCYTE ESTERASE Negative (Normal) UA - NITRITE Negative (Normal) URINE UROBILINGN GENNA TIMED Normal mg/dL (Normal) UA - PROTEIN 300 mg/dL (Normal) UA - PH 7.5 (Normal) UA - BLOOD Non Hemolyzed Moderate (Normal) UA - SPECIFIC GRAVITY 1.025 (Normal) UA - KETONES Negative mg/dL (Normal) UA - BILIRUBIN Negative (Normal) UA - GLUCOSE Negative (Normal) 75-Rvv-381077:24 TSH (90915) Comments: PATIENT WAS FASTINGPERFORMED BY: [facility]6370 [facility] [id number] TSH 1.790 {uIU/mL} (Normal) Range: 0.450-4.500 04-Erf-789338:24 METABOLIC PANEL, COMPREHENSIVE Comments: PATIENT WAS FASTINGPERFORMED BY: [facility]6370 [facility] [id number] (30915) ALT (SGPT) 37 [iU]/L (Abnormal) Range: 0-32 [...] Glucose, Serum 99 mg/dL (Normal) Range: 65-99 73-Wug-271186:24 CBC W/AUTO DIFF WBC (05521) Comments: PATIENT WAS FASTINGPERFORMED BY: [facility] SomersetOrosuj4512 [facility] [id number] Immature Grans (Abs) 0.0 {x10E3/uL} (Normal) Range: [...] 3.77-5.28 WBC 9.4 {x10E3/uL} (Normal) Range: 3.4-10.8 54-The-468999:24 LIPID PANEL (00827) Comments: PATIENT WAS FASTINGPERFORMED BY: [facility] SomersetAousbo2784 [facility] [id number] LDL/HDL Ratio 1.8 {ratio_units} (Normal) Range: 0.0-3.2 Comments: LDL/HDL Ratio Men Women 1/2 Avg.Risk 1.0 1.5 Av g.Risk 3.6 3.2 2X Avg.Risk 6.2 5.0 3X Avg.Risk 8.0 6.1 LDL Cholesterol Calc 75 mg/dL (Normal) Range: 0-99 VLDL Cholesterol Juliocesar 52 mg/dL (Abnormal) Range: 5-40 HDL Cholesterol 42 mg/dL (Normal) Triglycerides 258 mg/dL (Abnormal) Range: 0-149 Cholesterol, Total 169 mg/dL (Normal) Range: 100-199 72-Gac-869625:24 CALCIFEDIOL (62792) Comments: PATIENT WAS FASTINGPERFORMED BY: [facility] Cfslir6048 [facility] [id number] Vitamin D, 25-Hydroxy 44.2 ng/mL (Normal) Range: 30.0-100.0 Comments: Vitamin D deficiency has been defined by the [place] of[place] and an Endocrine Society practice guideline as alevel of serum 25-OH vitamin D less than 20 ng/mL (1,2).The Endocrine Society went on to further define vitamin Dinsufficiency as a level between 21 and 29 ng/mL (2).1. IOM ([place] of [employer]). 2010. Dietary reference intakes for calcium and D. [place]: The National Academies Press.2. Miles MF, Rti [place], Juan Francisco SHEETS, et al. Evaluation, treatment, and prevention of vitamin D deficiency: an Endocrine Society clinical practice guideline. JCEM. 2010; 96(7):1911-30. 85-Scm-748003:15 HgA1C , Office (18685) HgA1C , Office 6.0 % (Normal) Range: 4.6 - 7.1 45-Tht-154234:15 Blood Glucose , Office (87084) Blood Glucose , Office 103 (Normal) 10-Feb-20179:45 Bedside Glucose Comments: [facility] LaboratoryPoint of Dzqd[address]75 [place] [address] BEDSIDE GLU 134 mg/dL (Abnormal) Range: 70-110 Comments: MANAGEMENT OF PATIENT CARE PER NURSING PROTOCOL 74-Xuh-570173:04 ANCA Comments: Is Patient Fasting? [facility] (refer [...] up testing of positive sera with both MN-3 and MPO- ANCA enzyme immunoassays. As many as 5% serumsamp les are positive only by EIA. Ref. AM J Clin Rmzybh1270;111:507-513. CYTOPLASMIC Ab <1:20 {titer} (Normal) 73-Piu-442913:04 Anti-dsDNA Ab Comments: [facility] (refer to report for specific site)refer to report for address and phone number dsDNA AB <1 {IU/mL} (Normal) Range: 0-9 Comments: Negative <5 Equivocal 5 - 9 Positive >9Performed at: - [facility] [address] [id number] D irector: Jonathan Khan PhD, Phone: [phone] 79-Iun-404470:04 Basic Metabolic Profile (BMP) Comments: PLEASE ADD BMP TO BLOOD FROM [facility] [address]tdmyjskao[address] [place], [place], [address] GAP 8 (Normal) Range: 5-15 CO2 25.0 [...] 126 mg/dLsuggests DIABETES MELLITUS per A.D.A. criteria. 86-Chf-648256:04 CBC W/Diff, Automated Comments: [facility] [address]ruv[address] [place], [place], [address] Absolute Lymph 2.35 {X10_3/ul} (Normal) Range: 0.83-4.51 [...] 4.2-5.4 WBC 10.2 K/mm3 (Normal) Range: 4.4-11.0 62-Hlu-770340:04 Complement C3 Comments: Is Patient Fasting? [facility] (refer to report for specific site)refer to report for address and phone number COMP C3 187 mg/dL (Abnormal) Range: 82-167 Comments: Performed at: - [facility] [id number] Director: Jonathan Khan PhD, Phone: [phone] 73-Utp-290039:04 Complement C4 Comments: Is Patient Fasting? [facility] (refer to report for specific site)refer to report for address and phone number COMP C4 24 mg/dL (Normal) Range: 14-44 38-Der-274214:04 SHAYLEE + Protein Elect, Serum Comments: Is Patient Fasting? [facility] (refer to report for specific site)refer to report for address and phone number NOTE: Comment (Normal) Comments: Protein electrophoresis scan will follow via computer,mail, or housekeeper/custodian/laundry worker delivery. SHAYLEE RESULT,S Comment (Normal) Comments: No monoclonality detected. A/G RATIO 1.1 (Normal) Range: 0.7-1.7 GLOBULIN, TOTAL 2.9 g/dL (Normal) Range: 2.2-3.9 M-SPIKE g/dL (Normal) Comments: Not Observed GAMMA GLOBULIN 0.7 g/dL (Normal) Range: 0.4-1.8 BETA GLOBULIN 1.0 g/dL (Normal) Range: 0.7-1.3 KPRIA-6-BIIQ 1.0 g/dL (Normal) Range: 0.4-1.0 MDYGH-4-UYUI 0.2 g/dL (Normal) Range: 0.0-0.4 ALBUMIN 3.1 g/dL (Normal) Range: 2.9-4.4 IMMUNOGL M 94 mg/dL (Normal) Range: 26-217 IMMUNO A 204 mg/dL (Normal) Range: 87-352 IMMUNO G 703 mg/dL (Normal) Range: 700-1600 PROTEIN,TOTAL 6.0 g/dL (Normal) Range: 6.0-8.5 86-Lon-876305:04 Partial Thromboplast Time Comments: [facility] [address]oypg[address] [place], [place], [address] PTT 23.1 s (Abnormal) Range: 24.1-36.2 40-Cdo-462397:04 Protein+Creatinine Ratio,Urine Comments: [facility] Vpgingkpyc[address] [place], [address] PROT:CRE RATIO 1806 {mg/g_CRE} (Abnormal) Range: 0-200 PROTEIN,UR.RAN. 209.5 mg/dL (Abnormal) UR CREAT 116.00 mg/dL (Normal) 31-Lap-376367:04 Prothrombin Time w/INR Comments: [facility] Jgixnbomgk[address] [place], [address] INR 1.0 (Normal) PROTIME 12.7 s (Normal) Range: 11.7-14.9 93-Weo-050871:00 Basic Metabolic Profile (BMP) Comments: [facility] [address]ukvpa[address] [place], [address] GAP 9 (Normal) Range: 5-15 CO2 24.0 [...] 126 mg/dLsuggests DIABETES MELLITUS per A.D.A. criteria. 34-Til-701574:00 Magnesium Comments: [facility] Fvrsabhssr[address] [place], [address] MG 2.0 mg/dL (Normal) Range: 1.8-2.4 88-Twv-486257:47 HGB A1C (58920) Comments: PATIENT NOT FASTINGPERFORMED BY: TERI [facility] Zlbgnc7437 [facility] [id number] Hemoglobin A1c 6.2 % (Abnormal) Range: 4.8-5.6 Comments: . Pre-diabetes: 5.7 - 6.4 Diabetes: >6.4 Glycemic control for adults with diabetes: <7.0 16-Rju-962980:54 Basic Metabolic Profile (BMP) Comments: [facility] [address]xt[address]qnf46[address] [place], [place], [address] GAP 7 (Normal) Range: 5-15 CO2 24.0 [...] 126 mg/dLsuggests DIABETES MELLITUS per A.D.A. criteria. 20-Nqt-271665:54 Microalb:Creat Ratio,Random UR Comments: [facility] [address] [place], [address] MALB:CREAT 3622.4 {mg/g_CRE} (Abnormal) MICROALBUMIN,UR 1880.0 mg/L (Normal) UR CREAT 51.90 mg/dL (Normal) 19-Qny-133645:30 CDIFF (Molecular) Comments: [facility] [address] [place], [address] CDIFF See Note (Normal) Comments: Cdiff-MolecularNormal Reference Range = Negative C. Diff DNA Negative- No toxigenic C. Diff DNA DetectedNAAT METHOD Testing was performed using nucleic acid amplification 5-Cmv-373196:47 Bedside Glucose Comments: [facility] LaboratoryPoint of Nyor[address] [place] [address] BEDSIDE GLU 124 mg/dL (Abnormal) Range: 70-110 Comments: MANAGEMENT OF PATIENT CARE PER NURSING PROTOCOL 3-Cwk-943309:39 Partial Thromboplast Time Comments: [facility] Awlvmhicem[address] [place], [address] PTT 25.9 s (Normal) Range: 24.1-36.2 :39 Prothrombin Time w/INR Comments: [facility] Tdbzbgieib[address] [place], [place], [address] INR 1.1 (Normal) PROTIME 14.2 s (Normal) Range: 11.7-14.9 :23 Basic Metabolic Profile (BMP) Comments: [facility] Wurynszbsq[address] [place], [address] GAP 8 (Normal) Range: 5-15 [...] 126 mg/dLsuggests DIABETES MELLITUS per A.D.A. criteria. 1-Tzu-938467:23 Lactic Acid Comments: [facility] R[address]jiogiwoa[address] [place], [address] LACTIC ACID 1.4 mmol/L (Normal) Range: 0.4-2.0 : KIDNEY BIOPSY See Note (Normal) Comments: [facility] [address]ovfpbygfp[address] [place], [address] 20 Comments: Patient: JANIS ZAPATA : 1970 (46/F) Acct Num: [id number] Phys: Vibha Larson M.D. Unit Num: [id number] Loc: CT Specimen: [id number] Received: 09/17/16 - 1040 Spec Ty pe: [...] DESCRIPTION The specimen is sent entirely to [facility] for diagnosis. The specimen is [facility] medium and consists of three cores of [...] merulus with segmental glomerulitis. Signed Magen [facility] 09/23/16 <signature on file> 22-Mlb-948749:21 D-Dimer Quantitative (DVT/PE) Comments: [facility] Ccwdwbtpsw7885 [facility], [address] D-DIMER QUANT 0.35 {FEU/ug/m} (Normal) Range: 0.27-0.49 Comments: NORMAL D-Dimer level (<0.50) indicates no DVT or PE. 28-Dxb-311494:33 Basic Metabolic Profile (BMP) Comments: 'TROP' Serial specimen #1, #2, #3, or #4: [facility] Tpkdgjgshd5892 [facility] [place], [place], [address] GAP 11 (Normal) Range: 5-15 CO2 26.0 [...] 126 mg/dLsuggests DIABETES MELLITUS per A.D.A. criteria. 08-Phl-328407:33 CBC W/Diff, Automated Comments: [facility] Z[address]thbpcgc[address] [place], [place], [address] Absolute Lymph 2.32 {X10_3/ul} (Normal) Range: 0.83-4.51 [...] 4.2-5.4 WBC 10.3 K/mm3 (Normal) Range: 4.4-11.0 56-Asc-077247:33 Troponin-I Comments: 'TROP' Serial specimen #1, #2, #3, or #4: [address] [place] [address] [address]uit[address] [place], [address] TROPONIN-I < 0.02 ng/mL (Normal) Comments: TROPONIN-I EXPECTED VALUES <0.05 NEGATIVE 0.06 - 0.59 AT RISK OF NH > OR = 0.60 SUGGEST NH 23-Tiz-36106:00 Creatinine, Urine (random) Comments: [facility] Srotpllcen9[address] [place], [address] UR CREAT 91.10 mg/dL (Normal) 38-Ifk-40259:00 Microalbumin,Random Urine Comments: [facility] [address]jatjkaj7[address] [place], [address] MICROALBUMIN,UR 5320.0 mg/L (Normal) 20-Fgf-59375:00 Protein, Urine (Random) Comments: [facility] [address]liwghif39[address] [place], [address] PROTEIN,UR.RAN. 689.0 mg/dL (Abnormal) 32-Gwj-25529:00 Urinalysis, Routine (Dipstick) Comments: How was Urine Obtained? CLEAN [facility] Onwgkivjks27[address] [place], [address] LEUK ESTERASE 25 /ul (Abnormal) OCCULT BLOOD-UR 150 /ul (Abnormal) NITRITE UR Negative (Normal) UROBILI Normal mg/dL (Normal) PROT DIPSTX 500 mg/dL (Abnormal) pH UR 8.0 (Normal) Range: 5.0 - 8.0 SP.GR. DIPSTX 1.015 (Normal) Range: 1.002-1.030 KETONE UR Negative mg/dL (Normal) BILIRUBIN URINE Negative mg/dL (Normal) GLUCOSE, UR Normal mg/dL (Normal) CLARITY Clear (Normal) COLOR Yellow (Normal) 77-Bib-654990:08 24 HR UR Creatinine Clearance Comments: [facility]17[address] [place], [address] CREAT CLEARANCE 94 ml/min (Abnormal) Range: 100-200 URINE CREAT 113.0 mg/dL (Normal) EST GFR - AA 84 mL/min (Normal) Comments: GFR Calc EST GFR 69 mL/min (Normal) Comments: Non- GFR Calc SERUM CREAT 0.9 mg/dL (Normal) Range: 0.6-1.0 UR TOTAL VOLUME 1100 mL (Normal) UR COLLECT TIME 24.0 {HOURS} (Normal) 50-Mup-022257:48 AFP, Tumor Marker Comments: Is Patient Fasting? NIs Patient ? [facility] (refer to report for specific site)refer to report for address and phone number AFP TUMOR 2253 2.8 ng/mL (Normal) Range: 0.0-8.3 Comments: Jai ECLIA methodology 87-Qie-490262:48 ANCA Comments: Is Patient Fasting? NIs Patient [...] up testing of positive sera with both MN-3 and MPO- ANCA enzyme immunoassays. As many as 5% serumsamp les are positive only by EIA. Ref. AM J Clin Zotjas0332;111:507-513. CYTOPLASMIC Ab <1:20 {titer} (Normal) 74-Pvs-947984:48 Anti-dsDNA Ab Comments: [facility] (refer to report for specific site)refer to report for address and phone number dsDNA AB <1 {IU/mL} (Normal) Range: 0-9 Comments: Negative <5 Equivocal 5 - 9 Positive >9Performed at: [facility] [address] [id number] D irector: Jonathan Kahn PhD, Phone: [phone] 32-Ubp-343441:48 CBC W/Diff, Automated Comments: [facility] [address]vingkubp[address] [place], [address] Absolute Lymph 2.85 {X10_3/ul} (Normal) Range: 0.83-4.51 [...] 4.2-5.4 WBC 10.3 K/mm3 (Normal) Range: 4.4-11.0 35-Xgn-844630:48 Complement C3 Comments: Is Patient Fasting? NIs Patient ? [facility] (refer to report for specific site)refer to report for address and phone number COMP C3 205 mg/dL (Abnormal) Range: 82-167 Comments: Performed at: - [facility] [address], [place] [id number] Director: Jonathan Khan PhD, Phone: [phone] 00-Sgu-147755:48 Complement C4 Comments: Is Patient Fasting? NIs Patient ? [facility] (refer to report for specific site)refer to report for address and phone number COMP C4 28 mg/dL (Normal) Range: 14-44 40-Fjo-963531:48 SHAYLEE + Protein Elect, Serum Comments: Is Patient Fasting? NIs Patient ? [facility] (refer to report for specific site)refer to report for address and phone number NOTE: Comment (Normal) Comments: Protein electrophoresis scan will follow via computer,mail, or housekeeper/custodian/laundry worker delivery. SHAYLEE RESULT,S Comment (Normal) Comments: No monoclonality detected. A/G RATIO 0.9 (Normal) Range: 0.7-1.7 GLOBULIN, TOTAL 3.2 g/dL (Normal) Range: 2.2-3.9 M-SPIKE g/dL (Normal) Comments: Not Observed GAMMA GLOBULIN 0.6 g/dL (Normal) Range: 0.4-1.8 BETA GLOBULIN 1.1 g/dL (Normal) Range: 0.7-1.3 UOQDM-3-JGXO 1.2 g/dL (Abnormal) Range: 0.4-1.0 ZQPCJ-0-MVUG 0.3 g/dL (Normal) Range: 0.0-0.4 ALBUMIN 2.6 g/dL (Abnormal) Range: 2.9-4.4 IMMUNOGL M 77 mg/dL (Normal) Range: 26-217 IMMUNO A 213 mg/dL (Normal) Range: 87-352 IMMUNO G 558 mg/dL (Abnormal) Range: 700-1600 PROTEIN,TOTAL 5.8 g/dL (Abnormal) Range: 6.0-8.5 48-Udk-536520:48 Partial Thromboplast Time Comments: [facility] [address] [place], [address] PTT 26.9 s (Normal) Range: 24.1-36.2 16-Ojm-591416:48 Prothrombin Time w/INR Comments: [facility] [address] [place], [address] INR 1.0 (Normal) PROTIME 12.6 s (Normal) Range: 11.7-14.9 07-Ycn-963036:27 HgA1C , Office (24817) HgA1C , Office 6.1 % (Normal) Range: 4.6 - 7.1 90-Lng-716690:27 Blood Glucose , Office (28446) Blood Glucose , Office 104 (Normal) 5-Kqg-220786:10 Microscopic Examination Comments: PATIENT WAS FASTINGPERFORMED BY: [place] [id number] Bacteria Few (Normal) Mucus Threads Present (Normal) Cast Type Hyaline casts (Normal) Casts Present {/lpf} (Abnormal) Epithelial Cells (non renal) 0-10 {/hpf} (Normal) Range: 0 - 10 RBC >30 {/hpf} (Abnormal) Range: 0 - 2 WBC 6-10 {/hpf} (Abnormal) Range: 0 - 5 0-Ryj-382426:10 URINALYSIS, W/ MICRO (72265) Comments: PATIENT WAS FASTINGPERFORMED BY: [facility] [id number] Microscopic Examination See below: (Normal) Comments: Microscopic was indicated and was performed. Nitrite, Urine Negative (Normal) Urobilinogen,Semi-Qn 0.2 mg/dL (Normal) Range: 0.2-1.0 Bilirubin Negative (Normal) Occult Blood 2+ (Abnormal) Ketones Negative (Normal) Glucose Negative (Normal) Protein 4+ (Abnormal) WBC Esterase Negative (Normal) Appearance Clear (Normal) Urine-Color Yellow (Normal) pH 7.0 (Normal) Range: 5.0-7.5 Specific [place] 1.026 (Normal) Range: 1.005-1.030 4-Aqy-010507:10 MICROALBUMIN: CREATININE RATIO Comments: PATIENT WAS FASTINGPERFORMED BY: [place] [id number] (45079) AND (81111) Microalb/Creat Ratio 4548.7 {mg/g_creat} (Abnormal) Range: 0.0-30.0 Microalbumin, Urine 5463.0 ug/mL (Normal) Comments: Results confirmed ondilution. Creatinine, Urine 120.1 mg/dL (Normal) 5-Ogl-768137:10 METABOLIC PANEL, COMPREHENSIVE Comments: PATIENT WAS FASTINGPERFORMED BY: [employer] Ehjuoy0804 [facility] [id number] (08827) ALT (SGPT) 42 [iU]/L (Abnormal) Range: 0-32 [...] Glucose, Serum 94 mg/dL (Normal) Range: 65-99 2-Eyp-677798:10 CBC W/AUTO DIFF WBC (80940) Comments: PATIENT WAS FASTINGPERFORMED BY: [employer] Cfsrrf9859 [facility] [id number] Immature Grans (Abs) 0.0 {x10E3/uL} (Normal) Range: [...] 3.77-5.28 WBC 12.2 {x10E3/uL} (Abnormal) Range: 3.4-10.8 0-Dik-350279:10 LIPID PANEL (82824) Comments: PATIENT WAS FASTINGPERFORMED BY: [facility] Pnkcyw9348 [facility] [id number] LDL/HDL Ratio 3.1 {ratio_units} (Normal) Range: 0.0-3.2 Comments: LDL/HDL Ratio Men Women 1/2 Avg.Risk 1.0 1.5 Av g.Risk 3.6 3.2 2X Avg.Risk 6.2 5.0 3X Avg.Risk 8.0 6.1 LDL Cholesterol Calc 131 mg/dL (Abnormal) Range: 0-99 VLDL Cholesterol Juliocesar 66 mg/dL (Abnormal) Range: 5-40 HDL Cholesterol 42 mg/dL (Normal) Triglycerides 331 mg/dL (Abnormal) Range: 0-149 Cholesterol, Total 239 mg/dL (Abnormal) Range: 100-199 1-Elo-[id number]:10 HEPATIC FUNCTION PANEL Comments: PATIENT WAS FASTINGPERFORMED BY: [facility] [id number] [facility] [id number] ([id number]) Bilirubin, Direct 0.07 mg/dL (Normal) Range: 0.00-0.40 8-Nin-[id number]:58 URINE BEULAH CULTURE-IDENTIFICATN Comments: PATIENT NOT FASTINGPERFORMED BY: [facility] [id number] [facility] [id number] Information: SRC: ([id number]) Antimicrobial MIHEAD (Normal) Comments: S = Susceptible; [...] mL (Abnormal) Urine Final report Culture,Comprehensive (Abnormal) [id number] Rapid Flu (70245 x 2) Comments: neg Influenza A Ag negative (Normal) 5-Mix-427882:23 Urinalysis, Office (87329) UA - LEUKOCYTE ESTERASE Trace (Normal) UA - NITRITE Negative (Normal) URINE UROBILINGN GENNA TIMED Normal mg/dL (Normal) UA - PROTEIN 300 mg/dL (Normal) UA - PH 6 (Abnormal) UA - BLOOD Hemolyzed Large (Normal) UA - SPECIFIC GRAVITY 1.015 (Normal) UA - KETONES Negative mg/dL (Normal) UA - BILIRUBIN Negative (Normal) UA - GLUCOSE Negative (Normal) 8-Wpj-356657:02 Bedside Glucose Comments: [id number] [place] [address] BEDSIDE GLU 105 mg/dL (Normal) Range: 70-110 Comments: No Action RequiredMANAGEMENT OF PATIENT CARE PER NURSING PROTOCOL 28-Mdj-478197:49 TSH (02899) Comments: PATIENT NOT FASTINGPERFORMED BY: [facility] [id number] [facility] [id number] TSH 2.680 {uIU/mL} (Normal) Range: 0.450-4.500 :49 T4, FREE (THYROXINE) (89612) Comments: PATIENT NOT FASTINGPERFORMED BY: [facility] Xmylmr4596 [facility] [id number] T4,Free(Direct) 0.86 ng/dL (Normal) Range: 0.82-1.77 :49 T3, FREE (TRIDOTHYRONINE) (95074) Comments: PATIENT NOT FASTINGPERFORMED BY: [facility] Sxasta9860 [facility] [id number] Triiodothyronine,Free,Serum 3.0 pg/mL (Normal) Range: 2.0-4.4 :52 URINE BEULAH CULTURE-IDENTIFICATN Comments: PATIENT NOT FASTINGPERFORMED BY: [facility] Azveps3569 [facility] [id number] Information: SRC: ([id number]) Result 1 ECV (Abnormal) Comments: Escherichia coli, [...] report Culture,Comprehensi (Abnormal) ve :26 Urinalysis, Office (52687) UA - LEUKOCYTE ESTERASE Negative (Normal) UA - NITRITE Positive (Normal) URINE UROBILINGN GENNA TIMED Normal mg/dL (Normal) UA - PROTEIN 300 mg/dL (Normal) UA - PH 7 (Normal) UA - BLOOD Hemolyzed Large (Normal) UA - SPECIFIC GRAVITY 1.020 (Normal) UA - KETONES Negative mg/dL (Normal) UA - BILIRUBIN Negative (Normal) UA - GLUCOSE Negative (Normal) 31-Xxz-329463:13 TSH (THYROID STIMULATING Comments: PATIENT WAS FASTINGPERFORMED BY: [employer] Sjyxhe1778 [facility] [id number] HORMONE) (39614) TSH 5.150 {uIU/mL} (Abnormal) Range: 0.450-4.500 62-Cly-507463:13 CALCIFEDIOL (06909) Comments: PATIENT WAS FASTINGPERFORMED BY: [facility]Br[facility]6370 [facility] [id number] Vitamin D, 25-Hydroxy 14.9 ng/mL (Abnormal) Range: 30.0-100.0 Comments: Vitamin D deficiency has been defined by the [place] [facility] and an Endocrine Society practice guideline as alevel of serum 25-OH vitamin D less than 20 ng/mL (1,2).The Endocrine Society went on to further define vitamin Dinsufficiency as a level between 21 and 29 ng/mL (2).1. IOM ([place] of Medicine). 2010. Dietary reference intakes for calcium and D. [place]: The National Academies Press.2. Miles [place], [place], Juan Francisco SHEETS, et al. Evaluation, treatment, and prevention of vitamin D deficiency: an Endocrine Society clinical practice guideline. JCEM. 2010; 96(7):1911-30. 83-Dte-719592:13 METABOLIC PANEL, COMPREHENSIVE Comments: PATIENT WAS FASTINGPERFORMED BY: [facility] Pcinxs2826 [facility] [id number] (00142) ALT (SGPT) 30 [iU]/L (Normal) Range: 0-32 [...] Glucose, Serum 107 mg/dL (Abnormal) Range: 65-99 29-Zgr-757744:13 LIPID PANEL (51744) Comments: PATIENT WAS FASTINGPERFORMED BY: [employer]70 [facility] [id number] LDL/HDL Ratio 3.2 {ratio_units} (Normal) Range: 0.0-3.2 Comments: LDL/HDL Ratio Men Women 1/2 Avg.Risk 1.0 1.5 Av g.Risk 3.6 3.2 2X Avg.Risk 6.2 5.0 3X Avg.Risk 8.0 6.1 LDL Cholesterol Calc 158 mg/dL (Abnormal) Range: 0-99 VLDL Cholesterol Juliocesar 65 mg/dL (Abnormal) Range: 5-40 HDL Cholesterol 50 mg/dL (Normal) Triglycerides 327 mg/dL (Abnormal) Range: 0-149 Cholesterol, Total 273 mg/dL (Abnormal) Range: 100-199 55-Kdz-883206:13 CBC with auto diff (26621) Comments: PATIENT WAS FASTINGPERFORMED BY: [employer]6370 [facility] [id number] Immature Grans (Abs) 0.0 {x10E3/uL} (Normal) Range: [...] 3.77-5.28 WBC 9.2 {x10E3/uL} (Normal) Range: 3.4-10.8 58-Iyb-742420:13 HGB A1C (59572) Comments: PATIENT WAS FASTINGPERFORMED BY: [facility]CoRobert [facility] SomersetAlfvdx5947 [facility] [id number] Hemoglobin A1c 6.4 % (Abnormal) Range: 4.8-5.6 Comments: . Pre-diabetes: 5.7 - 6.4 Diabetes: >6.4 Glycemic control for adults with diabetes: <7.0 :10 Urinalysis, Office (32121) UA - LEUKOCYTE ESTERASE Negative (Normal) UA - NITRITE Negative (Normal) URINE UROBILINGN GENNA TIMED Normal mg/dL (Normal) UA - PROTEIN 300 mg/dL (Normal) UA - PH 7 (Normal) UA - BLOOD Hemolyzed Large (Normal) UA - SPECIFIC GRAVITY 1.025 (Normal) UA - KETONES Negative mg/dL (Normal) UA - BILIRUBIN Negative (Normal) UA - GLUCOSE Negative (Normal) 87-Ldq-387454:28 URINE BEULAH CULTURE-IDENTIFICATN Comments: PATIENT NOT FASTINGPERFORMED BY: [facility] Exfgfy3612 [facility] [id number] Information: SRC:UC (87875) Result 1 ECV (Abnormal) Comments: Escherichia coli, [...] S Urine Final report Culture,Comprehensi (Abnormal) ve 49-Hcp-350992:37 Urinalysis, Office (62275) UA - LEUKOCYTE ESTERASE Trace (Normal) UA - NITRITE Negative (Normal) URINE UROBILINGN GENNA TIMED Normal mg/dL (Normal) UA - PROTEIN 300 mg/dL (Normal) UA - PH 8.5 (Normal) UA - BLOOD Hemolyzed Large (Normal) UA - SPECIFIC GRAVITY 1.020 (Normal) UA - KETONES Negative mg/dL (Normal) UA - BILIRUBIN Negative (Normal) UA - GLUCOSE Negative (Normal) 44-Stx-05781:52 Culture, Aerobic, Comments: PATIENT NOT FASTINGPERFORMED BY: [facility] Avbmvd1896 [facility] [id number] Information: LEFT LEG SRC:FL Bacterial ID (22792) Antimicrobial MIHEAD (Normal) Comments: S = Susceptible; [...] Meropenem Aerobic Bacterial Final report (Abnormal) Culture 8-Pez-685148:48 HGB A1C (36062) Comments: PERFORMED BY: TheFormToolRobert Wood [facility] Hospital SomersetCwdhia2851 [facility] [id number] Hemoglobin A1c 6.3 % (Abnormal) Range: 4.8-5.6 Comments: . Pre-diabetes: 5.7 - 6.4 Diabetes: >6.4 Glycemic control for adults with diabetes: <7.0 :46 TSH (79432) Comments: PATIENT NOT FASTINGPERFORMED BY: [facility]6370 [facility] [id number] TSH 2.910 {uIU/mL} (Normal) Range: 0.450-4.500 :46 CBC WITH MANUAL DIFF (93927) Comments: PATIENT NOT FASTINGPERFORMED BY: [facility]6370 [facility] [id number] Immature Grans (Abs) 0.0 {x10E3/uL} (Normal) Range: [...] 3.77-5.28 WBC 10.3 {x10E3/uL} (Normal) Range: 3.4-10.8 16-Lew-282098:46 Metabolic Panel, Basic Comments: PATIENT NOT FASTINGPERFORMED BY: LabCoRobert [facility] SomersetModqmu8983 [facility] [id number] (48542) Calcium, Serum 8.6 mg/dL (Abnormal) Range: 8.7-10.2 [...] Plan of Care Name Dates Details Instructions Cellulitis : Eprescribed prescriptions (G8553) Indication: Cellulitis [...] typeII,controlled, renal comp Pulmonary hypertension : Reviewed Instructional Material Director Letter Indication: Pulmonary hypertension Glomerulonephritis, IgA : Reviewed Instructional Material Director Letter Indication: Glomerulonephritis, IgA Hyperlipidemia, mild : [...] Indication: Hypertension Proteinuria, unspecified type : Reviewed Instructional Material Director Letter Indication: Proteinuria, unspecified type Diabetes typeII,controlled, [...] Pulmonary hypertension, mild Glomerulonephritis, IgA : Reviewed Instructional Material Director Letter Indication: Glomerulonephritis, IgA Hypertension : Continue [...] Flags Indication: Hypertension Glomerulonephritis, IgA : Reviewed Instructional Material Director Letter Indication: Glomerulonephritis, IgA Controlled type 2 diabetes mellitus without complication : *Diabetes Education Indication: Controlled type 2 diabetes mellitus without complication Fatty liver : Diet, Exercise, and Wt loss Indication: Fatty liver Abscess of buttock : Reviewed Instructional Material Director Letter- Dr Eng Indication: Abscess of buttock Pulmonary hypertension, mild : Reviewed Diagnostic Tests Indication: Pulmonary hypertension, mild Glomerulonephritis, IgA : Reviewed Instructional Material Director Letter Indication: Glomerulonephritis, IgA Hypertension : Continue Current Prescription(s) Indication: Hypertension Hypertension : HTN/CAD Red Flags Indication: Hypertension Chronic obstructive asthma with acute exacerbation (Renamed from Chronic obstructive asthma with exacerbation) : Reviewed Instructional Material Director Letter Indication: Chronic obstructive asthma with acute [...] of dvt Indication: Edema extremities Planned Observations Aerobic Bacterial Culture (87965)Indication: Pustules determined by examination On: :24 Request Comments: R arm Aerobic Bacterial Culture (68273)Indication: Pustules determined by examination On: :24 Request Comments: L leg CALCIFEDIOL (30681)Indication: Vitamin D deficiency On: :49 Request T4, FREE (THYROXINE) (91293)Indication: Adult hypothyroidism On: :49 Request T3, FREE (TRIDOTHYRONINE) (33087)Indication: Adult hypothyroidism On: :49 Request TSH (60055)Indication: Adult hypothyroidism On: :48 Request URINALYSIS, W/ MICRO (93194)Indication: Diabetes typeII,controlled, renal comp On: :48 Request MICROALBUMIN: CREATININE RATIO (41766) AND (69645)Indication: Diabetes typeII,controlled, renal comp On: :48 Request LIPOPROTEIN, BLD, BY NMR (25940)Indication: Diabetes typeII,controlled, renal comp On: :48 Request METABOLIC PANEL, COMPREHENSIVE (09965)Indication: Diabetes typeII,controlled, renal comp On: :48 Request CBC W/AUTO DIFF WBC (37382)Indication: Diabetes typeII,controlled, renal comp On: :48 Request HGB A1C (56167)Indication: Diabetes typeII,controlled, renal comp On: :47 Request Comments: do in -january HGB A1C (73344)Indication: Diabetes typeII,controlled, renal comp On: :47 Request Comments: now METABOLIC PANEL, COMPREHENSIVE (28554)Indication: Itch of skin On: 64-Wdl-013980:29 Request URINALYSIS, W/ MICRO (55422)Indication: Hypertension On: :39 Request MICROALBUMIN: CREATININE RATIO (69584) AND (34676)Indication: Hypertension On: :39 Request CALCIFEDIOL (28712)Indication: Vitamin D deficiency On: :26 Request URINALYSIS, W/ MICRO (30077)Indication: Hypertension On: :22 Request MICROALBUMIN: CREATININE RATIO (86379) AND (74193)Indication: Hypertension On: :22 Request METABOLIC PANEL, COMPREHENSIVE (97469)Indication: Hypertension On: : Request CBC W/AUTO DIFF WBC (34833)Indication: Hypertension On: : Request LIPID PANEL (29257)Indication: Hyperlipidemia, mild On: :21 Request TSH (49911)Indication: Adult hypothyroidism On: :21 Request TJWNG-HFLPHBNAJEM-ODSVG (60444)Indication: Fatty liver On: 62-Dza-312530:01 Request URINALYSIS (92190)Indication: Hematuria On: 33-Zrj-714090:56 Request MICROALBUMIN 24 HOUR OR RANDOM (73547)Indication: Other proteinuria On: 11-Ynx-038416:52 Request Comments: 24 hr for protein CREATININE CLEARANCE (70896)Indication: Other proteinuria On: 95-Ghi-884913:52 Request MICROALBUMIN: CREATININE RATIO (71184) AND (87859)Indication: Controlled type 2 diabetes mellitus without complication On: 09-Jcm-301144:28 Request Metabolic Panel, Basic (87412)Indication: Skin sore On: 53-Ans-998681:22 Request Metabolic Panel, Basic (54059)Indication: Edema extremities On: 83-Kvt-850341:19 Request Planned Encounters Medical; 1 Week FU - On: 17-Feb-2018 11:15 [facility] Rosaura Upton CNP Planned Procedures Rocephin Injection, 2 Gram On: 06-Feb-2018 Intent (J0696)By: Leticia Bernard DO Comments: lot: [id number]: 12/18site/route: RGM and LGM (1 G given in each hip)amt: 2GVIS signed when applicableChelsea, SWITCHING OPERATOR US GALLBLADDER (62038)By: Cristine On: 29-Dec-2017 Intent Naomi HAY DO, Kathleen Comments: attention CBD size -- h/o stent in past MAMMOGRAM BREAST BILATERAL On: 11-Dec-2017 Intent SCREENING DIGITAL (83851)By: Naomi Carrillo DO, DO, Kathleen Flu Vaccine (Quadrivalent) On: 10-Dec-2017 Intent 92488Nw: Naomi Carrillo DO Comments: Lot #[id number]-6/30/19Site-L dltd, IMDose prefilled syringegiven by:LINSEY Mcnulty reviewed and ABN signed Naomi Carrillo DO X-RAY OF RIGHT HAND, TWO VIEWS On: 24-Sep-2017 Intent (19638)By: Naomi Carrillo DO Comments: send results to dr valles as well Naomi Carrillo DO Radiology - Hand - LeftBy: On: 24-Sep-2017 Intent Naomi Carrillo DO, DO, Comments: send results to dr valles as well Naomi THYROID ULTRASOUND (59596)By: On: 25-Jun-2017 Intent Naomi Carrillo DO, DO, Kathleen Spirometry (42835)By: Cristine On: 25-Jun-2017 Naomi Collazo DO, DO, Kathleen Comments: normal ELECTROCARDIOGRAM, COMPLETE On: 25-Jun-2017 Intent (ECG) (24788)By: Cristine HAY, Comments: nsr no acute chg Naomi Bautista DO IV Needle placement (70369)By: On: 17-Jun-2017 Intent Rosaura Upton CNP INFUSION, NORMAL SALINE SOLUTION On: 17-Jun-2017 Intent , 1000 CC (Special Coverage Instructions Apply. See MCM: 2049) (J7030)By: Rosaura Upton CNP Phenergan Injection, up to 50 mg On: 17-Jun-2017 Intent (J2550)By: Rosaura Upton CNP Comments: 50mg given IM in left glut MeC Lot # [id number] exp Flu Vaccine (Quadrivalent) On: 18-Dec-2016 Intent 71539Eb: Naomi Carrillo DO Comments: Lot:[id number]:09/22/17Amt:0.5mlRoute:IMSite: L DltdGiven By: LINSEY Bond signed Naomi Carrillo DO SCREENING DIGITAL TOMOSYNTHESIS On: 05-Dec-2016 Intent OF BREAST (22844)By: Naomi Carrillo DO, DO, Kathleen THYROID ULTRASOUND (77847)By: On: 31-May-2016 Intent Naomi Carrillo DO, DO, Kathleen Spirometry (95141)By: Cristine On: 25-Apr-2016 Intent Naomi HAY DO, Kathleen Comments: good PNEUM VAC ADLT/IMUMNOSPR, On: 25-Apr-2016 Intent SBC/INTRM (02957)By: Cristine HAY, Comments: pneumovaxlot:[id number]:08/24/17ite:lt deltroute:IMdose:.5mlD.DASHA Kat DO, Kathleen ELECTROCARDIOGRAM, COMPLETE On: 25-Apr-2016 Intent (ECG) (68262)By: Cristine HAY, Comments: nsr no acute chg Naomi Bautista DO Flu Vaccine (Quadrivalent) On: 24-Jan-2016 Intent 90837Xc: Willy Kat Comments: FLUlot: [id number]:10/04/16site:Lt deltoidroute:IMdose:.5mlDEDASHA MCINTOSH Planned Medications INFUSION, NORMAL SALINE SOLUTION , 1000 CC Ordered: 17-Jun-2017 Pending Rosaura Upton CNP INJECTION, CEFTRIAXONE SODIUM, PER 250 MG Ordered: 06-Feb-2018 Pending Leticia Bernard DO Phenergan 50 MG/ML Injection Solution Ordered: 17-Jun-2017 Pending Rosaura Upton CNP Instructions Name Dates Details Cellulitis : How to access health information [...] Indication: Edema extremities Encounters Office Visit On: 06-Feb-2018 10:21 Encounter Reason: [...] with stage 1 chronic kidney disease, unspecified snf insulin use status, Nutritional counseling, Rash Comprehensive [...] with stage 1 chronic kidney disease, 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 I've seen Dr. Begum urologist in [place], but haven't seen him in [facility]. Had kidney failure in 2006. Encounter [...] disease, Hypertension [facility] Yue Zapata; a guarantor
--- OUTSIDE RECORDS SUMMARY | 2018-06-27 05:45 | XMS RPT_ITS ---
:1970 Author Organization [place] Support Name Relationship Address Phone UE Unknown Unavailable Unavailable NEHA PETERS [address] + [place] [address] JASON PETERSSon [address] + [place] [address] UE Unknown Unavailable Unavailable NEHA PETERS [address] + [place] [address] JASON PETERS [facility] [address] + [place] [address] UE Unknown Unavailable Unavailable NEHA PETERS [address] + [place] [address] JASON PETERS [employer] [address] + [place] [address] UE Unknown Unavailable Unavailable NEHA PETERS [address] + [place] [address] JASNO PETERS [employer] [address] + [place] [address] UE Unknown Unavailable Unavailable NEHA PETERS [address] + [place] [address] JASON PETERS [employer] [address] + [place] [address] UE Unknown Unavailable Unavailable NEHA PETERS [address] + [place] [address] JASON PETERS [employer] [address] + [place] [address] UE Unknown Unavailable Unavailable NEHA PETERS [address] + [place] [address] JASON PETERS [employer] [address] + [place] [address] UE Unknown Unavailable Unavailable NEHA PETERS [address] + [place] [address] [facility] [address] [place] + [place] [address] UE Unknown Unavailable Unavailable JODINEHA [facility] [address] + [place] [address] [address] + [place] [address] UE Unknown Unavailable Unavailable NEHA PETERS [facility] [address] + [place] [address] [address] [place] + [place] [address] UE Unknown Unavailable Unavailable JODINEHA [facility] [address] + [place] [address] [address] [place] + [place] [address] UE Unknown Unavailable Unavailable JODINEHA [place] [address] + [place] [address] [address] [place] + [place] [address] UE Unknown Unavailable Unavailable NEHA PETERS [address] [place] + [place] [address] [address] [place] + [place] [address] UE Unknown Unavailable Unavailable JODINEHA [place] + [place] [address] [address] [place] + [place] [address] UE Unknown Unavailable Unavailable JODINEHA [place] + [place] [address] [address] [place] + [place] [address] UE Unknown Unavailable Unavailable JODINEHA [address] [place] + [place] [address] [address] + [place] [address] UE Unknown Unavailable Unavailable JODINEHA [address] [place] + [place] [address] [address] + [place] [address] UE Unknown Unavailable Unavailable NEHA PETERS [facility] [address] + [place] [address] JODI [address] + [place] [address] UE Unknown Unavailable Unavailable NEHA PETERS [facility] [address] + [place] [address] [facility] [address] + [place] [address] UE Unknown Unavailable Unavailable NEHA PETERS [facility] [address] + [place] [address] [facility] [address] + [place] [address] UE Unknown Unavailable Unavailable JODINEHA [place] + [place] [address] [facility] [address] + [place] [address] UE Unknown Unavailable Unavailable JODINEHA [address] [place] + [place] [address] [facility] [address] + [place] [address] UE Unknown Unavailable Unavailable JODINEHA [address] + [place] [address] [facility] [address] [place] [phone] [place] [address] UE Unknown Unavailable Unavailable NEHA PETERS [address] + [place] [address] [address] [place] [phone] [place] [address] UE Unknown Unavailable Unavailable NEHA PETERS [facility] [address] + [place] [address] [address] + [place] [address] UE Unknown Unavailable Unavailable NEHA PETERS [facility] [address] + [place] [address] UE Unknown Unavailable Unavailable JODINEHA SMYTH [address] + [place] [address] Care Team Providers Name Role Phone Eulogio Naomi Attending Unavailable Eulogio, Naomi Referring Unavailable Eulogio, Naomi Primary Care Unavailable Albania Brenner Attending Unavailable Eulogio, Naomi Referring Unavailable Marsha, Jayaprakash Attending Unavailable Marsha, Jayaprakash Referring Unavailable Eulogio, Naomi Primary Care Unavailable Eulogio, Naomi Primary Care Unavailable Harry Cortez Attending Unavailable Harry Gagnon Attending Unavailable Harry Gagnon Referring Unavailable Eulogio, Naomi Primary Care Unavailable Jeremias Gonsalez D.O. Attending Unavailable Eulogio, Naomi Referring Unavailable Eulogio, Naomi Attending Unavailable Eulogio, Naomi Referring Unavailable Eulogio, Naomi Primary Care Unavailable Marsha, Jayaprakash Consulting Unavailable Elif Daleyewongbe Attending Unavailable Eulogio, Naomi Primary Care Unavailable Edi Efewongbe Attending Unavailable Oleghe, Efewongbe Referring Unavailable Marsha, Jayaprakash Attending Unavailable Eulogio, Naomi Primary Care Unavailable Marsha, Jayaprakash Attending Unavailable Marsha, Jayaprakash Referring Unavailable Eulogio, Naomi Primary Care Unavailable Marsha, Jayaprakash Attending Unavailable Eulogio, Naomi Primary Care Unavailable Marsha, Jayaprakash Referring Unavailable Albania Brenner Attending Unavailable Jodrin, Albania Referring Unavailable Eulogio, Naomi Primary Care Unavailable Albania Brenner Attending Unavailable Jordin, Albania Referring Unavailable Eulogio, Naomi Primary Care Unavailable Eulogio, Naomi Primary Care Unavailable Estephania Shay Attending Unavailable Say Rosa Attending Unavailable Jordin, Albania Referring Unavailable Jeremias Gonsalez D.O. Attending Unavailable Eulogio, Naomi Referring Unavailable Marsha, Jayaprakash Attending Unavailable Eulogio, Naomi Referring Unavailable Marsha, Jayaprakash Primary Care Unavailable Marsha, Jayaprakash Attending Unavailable Eulogio, Naomi Primary Care Unavailable Marsha, Jayaprakash Referring Unavailable Jordin, Albania Attending Unavailable Brenner, Albania Referring Unavailable Eulogio, Naomi Primary Care Unavailable Eulogio, Naomi Primary Care Unavailable Alvarez Hutchison Attending Unavailable Eulogio, Naomi Attending Unavailable Eulogio, Naomi Referring Unavailable Eluogio, Naomi Primary Care Unavailable Eulogio, Naomi Attending Unavailable Eulogio, Naomi Primary Care Unavailable Jeremias Gonsalez D.O. Attending Unavailable Eulogio, Naomi Referring Unavailable Eulogio, Naomi Attending Unavailable Eulogio, Naomi Referring Unavailable Eulogio, Naomi Primary Care Unavailable Harry De Jesus Consulting Unavailable Say Rosa Attending Unavailable Brenner, Albania Referring Unavailable Albania Brenner Attending Unavailable Eulogoi, Naomi Referring Unavailable WALLACE, ZAK T Referring Unavailable WALLACE, ZAK T Admitting Unavailable WALLACE, ZAK T Attending Unavailable HARRY MEDINA Attending Unavailable SHARDA WYLIE (PA) Referring Unavailable NEHARRY MONCADA Referring Unavailable OWUSUVIJAY Referring Unavailable PARVEZSHARDA (PA) Attending Unavailable EULOGIO, NAOMI DC Referring Unavailable OWUSU, VIJAY A Attending Unavailable Eulogio DO, Naomi Attending Unavailable Eulogio DO, Naomi Referring Unavailable Eulogio DO, Naomi Consulting Unavailable Juan MEDINA Attending Unavailable EULOGIO, KATHLEE Primary Care Unavailable , SHARDA Referring Unavailable Juan MEDINA Attending Unavailable EULOGIO, KATHLEE Referring Unavailable EULOGIO, KATHLEE Primary Care Unavailable Juan MEDINA Referring Unavailable EULOGIO, KATHLEE Primary Care Unavailable Juan MEDINA Referring Unavailable EULOGIO, KATHLEE Primary Care Unavailable Purpose Purpose PROBLEMS PROBLEMS DATE TYPE CONDITION / CODE ATTENDING STATUS SOURCE 04/23/2018 Unknown L97.922 - Oleghe, Active Yvette Non-pressure [facility] chronic ulcer of Hospital unspecified part Repository of left lower leg with fat layer exposed / L97.922(ICD-10) 04/23/2018 Unknown E11.622 - Type 2 Oleghe, Active [facility] diabetes mellitus [facility] with other skin Hospital ulcer / Repository E11.622(ICD-10) 04/20/2018 Unknown R05 - Cough / Eulogio, Naomi Active [facility] R05(ICD-10) [facility] Hospital Repository 02/05/2018 Unknown J44.9 - Chronic Brenner, Active Yvette obstructive [facility] pulmonary disease, [facility] unspecified / Repository J44.9(ICD-10) 01/27/2018 Active Pain in left hip / NA Active [place] M25.552(ICD-10) Clinic Other [place] Repository 04/20/2018 Unknown R06.09 - Other Say Rosa Active [facility] forms of dyspnea / Community R06.09(ICD-10) Hospital Repository 04/20/2018 Unknown M54.9 - Dorsalgia, Le, Alvarez Active [facility] unspecified / Community M54.9(ICD-10) Hospital Repository 12/02/2017 Unknown E55.9 - Vitamin D Marsha, Active [facility] E55.9(ICD-10) Repository 12/02/2017 Unknown R80.9 - Marsha, Active [facility] Proteinuria, [facility] unspecified / Hospital R80.9(ICD-10) Repository 12/02/2017 Unknown N04.9 - Nephrotic Marsha, Active [facility] morphologic Rep[facility] changes / N04.9(ICD-10) 12/02/2017 Unknown R31.9 - Hematuria, Marsha, Active [facility] unspecified / Jayaprakash Community R31.9(ICD-10) Hospital Repository 04/20/2018 Unknown R10.32 - Left Estephania Shay Active [facility] lower quadrant Community pain / Hospital R10.32(ICD-10) Repository 04/20/2018 Unknown J44.1 - Chronic Say Rosa Active [facility] obstructive Community pulmonary disease Hospital with (acute) Repository exacerbation / J44.1(ICD-10) 04/23/2017 Active Gastro-esophageal HARRY MEDINA Counts Include [address] reflux disease [facility] Other with esophagitis / [place] K21.0(ICD-10) Repository 06/26/2017 Active Epigastric pain / HARRY MEDINA Active [place] R10.13(ICD-10) [facility] Other [facility] Rep[facility] 06/26/2017 Active Abdominal [facility] Other (gaseous) / [place] R14.0(ICD-10) Repository 06/26/2017 Active Morbid (severe) HARRY MEDINA Counts Include [address] [facility] obesity due to [facility] Other excess calories / [place] E66.01(ICD-10) Repository 04/23/2017 Admitting Unknown / Juna MEDINA Active [facility] diagnosis UNK(Unknown) [facility] Repository 04/20/2018 Unknown R19.7 - Diarrhea, Harry Cortez Active [facility] unspecified / Community R19.7(ICD-10) Hospital Repository 04/23/2017 Active Personal history ZAK GONSALEZ Active [place] of colonic polyps [facility] Other / Z86.010(ICD-10) [facility] Rep[facility] 04/23/2017 Active Eructation / ZAK GONSALEZ Active [place] R14.2(ICD-10) T Clinic Other [place] Repository 05/20/2017 Active Unknown / NA Active [place] UNK(Unknown) Clinic Other [place] Repository PROCEDURES PROCEDURES No Procedure Records FoundVITAL SIGNS VITAL SIGNS No Vital Signs Records FoundRESULTS RESULTS WOUND CTR HISTORY Observed: 04/23/2018 Status: F Source: [facility] AND PHYSICAL 1:13 PM [facility] REPOSITORY [facility] [address] [place] [address] Wound Ctr History AND Physical 04/22/18 1209 MR#: [id number] Acct: [id number] Name: JANIS PETERS Rep #: [id number] : 1970 47 From: Mc Daley MD PCP: Naomi Colunga DO Status: REG RCR Y Location: WC (1) Ulcer of left lower extremity with fat layer exposed Status: Chronic Current Visit: Yes Code(s): L97.922 - Non-pressure chronic ulcer of unspecified part of left lower leg with fat layer exposed (2) Type 2 diabetes mellitus Status: Chronic Current Visit: Yes Code(s): E11.9 - Type 2 diabetes mellitus without complications (3) Continuous tobacco abuse Status: Chronic Current Visit: No Code(s): Z72.0 - Tobacco use History of Present Illness Chief Complaint: Nonhealing left lower extremity ulcer. History of Wound: Ms. Peters is a 47yo with past medical history as stated above presented due to nonhealing left lower extremity ulcer. Initially noted as a bump which subsequently opened up 5 months ago. Has been managed with antibiotic orally and topically by her primary care physician without any significant change. She typically has scabbing overread which she occasionally scratches open. She reports similar episodes in other parts of her body. She is unsure of her last A1c or overall diabetes control. She states that she just completed a course of antibiotics for pneumonia. 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) Continuous tobacco abuse (Chronic) WATTS (dyspnea on exertion) (Chronic) Obstructive sleep apnea (Chronic) Adult-onset obesity (Chronic) Pulmonary hypertension (Chronic) Stage 1 mild COPD by GOLD classification (Chronic) Surgical History: cholecystectomy, - - ERCP with stenting of common bile duct Allergies/Adverse Reactions: Allergies amlodipine Allergy (Verified 02/05/18 07:15) severe edema atenolol Allergy (Verified 02/05/18 07:15) Swelling ciprofloxacin [From Cipro] Allergy (Verified 02/05/18 07:15) Itching ciprofloxacin HCl [From Cipro] Allergy (Verified 02/05/18 07:15) Itching estradiol [From Estrace] Allergy (Verified 02/05/18 07:15) Swelling meloxicam Allergy (Verified 02/05/18 07:15) Itching niacin Allergy (Verified 02/05/18 07:15) Itching Home Medications: Ambulatory Orders Medication Instructions Recorded Albuterol Aerosols [Ventolin 2.5 mg INHALATION Q4H PRN PRN 05/03/15 Smoking Status: Current every day smoker Review of Systems Constitutional: Denies: Anorexia, Chills, Fever Eyes: Denies: Blurred vision, Pain HEENT: Denies: Difficulty Swallowing Cardiovascular: Denies: Chest Pain Respiratory: Denies: Hemoptysis Gastrointestinal: Denies: Abdominal Pain, Hematemesis, Vomiting Skin: Denies: Jaundice - Physical Exam Vital Signs Pulse Resp BP 123 H 18 143/90 H 04/22/18 10:57 04/22/18 10:57 04/22/18 10:57 General: Alert, Oriented x3, Cooperative, No apparent distress HEENT: Atraumatic Oral: Moist Mucosa Neck: Supple Lungs: Normal air movement Extremities: No cyanosis, Edema Skin: Ulcer/ Wound Wound Measurements and Assessment WC - Nurse 1 - General Ulcer Measurement Start: 04/22/18 10:57 Freq: Status: Active Protocol: Activity Type Activity Date Activity User E-Sign Co-Sign Detail Recorded Client Recorded Date Recorded By Document 04/22/18 10:57 CS [id number] 04/22/18 11:08 CS Wound Center Nurse 1 [Ulcer Assessment] #1 LEFT LATERAL CALF -Combined with other wound No -Current Size (cm) - Length 0.4 WC - Nurse 2 - General Ulcer CM Notes Start: 04/22/18 10:57 Freq: Status: Active Protocol: Activity Type Activity Date Activity User E-Sign Co-Sign Detail Recorded Client Recorded Date Recorded By Document 04/22/18 11:30 MW [id number] 04/22/18 11:40 MW Wound Center Nurse 2 Musculoskeletal: No Muscle Wasting Neurological: Cranial nerves II-XII grossly intact Psych/Mental Status: Normal Affect Debridement Note Post-Debridement Measurements/Treatment WC - Nurse 2 - General Ulcer CM Notes Start: 04/22/18 10:57 Freq: Status: Active Protocol: Activity Type Activity Date Activity User E-Sign Co-Sign Detail Recorded Client Recorded Date Recorded By Document 04/22/18 11:30 MW [id number] 04/22/18 11:40 MW Wound Center Nurse 2 #1 LEFT LATERAL CALF -Time 11:31 -Correct Patient Yes -Correct Side, Site, Position Yes Wound debrided: Left lower extremity Wound Grade/Stage: Stage II Type of Debridement: Excisional debridement Anesthesia Used: 4% Lidocaine Solution Depth: Down to and including healthy tissue, in the subcutaneous layer Percentage of wound debrided: 100 Instrument Used: 3mm curette Tissue Removed: Slough and devitalized tissue Severity: Fat Layer Exposed Amount of bleeding with debridement: Mild Bleeding Controlled with: Pressure Patient tolerated procedure well Assessment/Plan Active Problems (Last Reviewed 02/05/18 @ 13:11 by Albania Brenner NP-C) Ulcer of left lower extremity with fat layer exposed (Chronic) Type 2 diabetes mellitus (Chronic) Assessment: Nonhealing left lower extremity ulcer with fat layer exposed. Diabetes mellitus type 2 ? Controlled. Tobacco abuse. Morbid obesity. Bilateral lower extremity edema. Plan: Debridement done as documented above. Procedure was well-tolerated. Promogran with Adaptic over top. Change daily. Will request records from PCP. Double layer Tubigrip for edema management. Advised to elevate lower extremities when seated in bed. Increased protein intake recommended. Optimal blood sugar control also recommended. She was advised to follow-up with her PCP in this regard. All her questions were answered and she was asked to call any further questions or concerns. Follow-up in 1 week. This note was generated with [employer] software. It may contain incorrect words, spelling, and punctuation that were not noted in checking the note before signing. 04/23/18 1313 <Electronically signed by Mc Daley MD> Date Mc Daley MD CC: Signed CHEST PA AND LATERAL Observed: 04/16/2018 Status: F Source: [place] 10:27 AM [facility] [place] [facility] Imaging Services [address] [place] [id number] Chest PA and Lateral MR#: [id number] Acct: [id number] Name: JANIS PETERS Rep #: [id number] : 1970 F 47 From: Zak Carrasco MD PCP: Naomi Colunga DO Status: REG CLI Study: Chest PA and Lateral Date of Exam: 04/16/18 Exam# [id number] Ordering Dr: Naomi Colunga DO STUDY: X-RAY CHEST REASON FOR EXAM: Female, 47 years old. Drug cough, 3 weeks. TECHNIQUE: COMPARISON: None. FINDINGS: Mildly increased airspace opacities infrahilar, suggesting the possibility of a lower lobe posterior segmental infiltrate or bronchial wall thickening, subsegmental, best seen in the lateral view. Not apparent in the frontal view. No other dense focal infiltrate. No effusion or pneumothorax. Mild cardiomegaly. Normal mediastinal silhouette, lesli and pleural margins. No acute osseous or upper abdominal process. RAD/Chest PA and Lateral IMPRESSION: Bandlike opacity projecting from the inferior hilum posterior segment lower lobe, slightly overlapping the inferior vertebral bodies. Seen in the lateral view only. Suspected subsegmental infiltrate. Difficult to discern if this is on the right or the left. Electronically Signed: Zak Carrasco MD at 11:01 EST Tel , Service support , CC: Naomi Colunga DO Training And Development Manager: Signed PULMONARY VISIT REPORT Observed: 02/05/2018 Status: F Source: [place] 2:25 PM [facility] [place] [facility] [address] [place] [address] OFFICE VISIT Date of Service: 02/05/18 MR#: [id number] Acct: [id number] Name: JANIS PETERS Rep #: [id number] : 1970 Provider: Albnaia Brenner Age/Sex: 47/F [place] [facility] [place] Status: Signed Assessment AND Plan 1. Moderate COPD (chronic obstructive pulmonary disease) J44.9 Plan Deteriorated. She does not appear to be in exacerbation of her COPD today however her COPD is progressing. Stepping up therapy, discontinuing Spiriva Respimat and starting on Bevespi. Personally instructed on how to use the Bevespi [...] Obstructive sleep apnea G47.33 Plan Deteriorated. Admittedly noncompliant for several months. Has resumed use over the past 2 weeks. Has noticed improvement in benefit from using. Continue to encourage compliance. Follow-up with Dr. Gonsalez in 3 months. 3. Adult-onset obesity E66.9 Plan Encourage weight loss. 4. Continuous tobacco abuse Z72.0 Plan A 15 minute, face to face discussion occurred with the patient regarding smoking cessation. Risks of continued tobacco abuse was covered such as heart disease, stroke, cancer, and emphysema, among others. The many health benefits quitting, was discussed and the patient was educated on the fact that smokers lose an average of 10 minutes of life for every cigarette smoked. We discussed the pathophysiology of smoking addiction and its dual addictive components of nicotine addiction and psychological addiction. Nicotine replacement was discussed. We also talked about medications [...] cessation. You may call the free hotline 0-202-FRZZNOW. People who use this line are THREE times more likely to remain smoke free. 5. Chronic kidney disease, unspecified CKD stage N18.9 Plan Complicates exam, plan, care and prognosis. Defer management to nephrology. Plan Detail Other Orders Orders: Other Medications New: insulin degludec (U-100) (Tresiba FlexTouch U9 units subcut QHS -100 insulin) albuterol sulfate HFA 90 mcg/actuation 2 puffs Inhalation Q4H PRN PRN 18 grams 8RF Shortness Of Breath Follow Up 3 Months (DMB) HPI 2 M FU: Chief Complaint: Shortness of breath HPI Comments Details: This patient presents to the office today after a long absence to resume follow-up on her COPD. She is in a wheelchair, on room air and accompanied today by her daughter and 2 grandsons. The patient has not been seen in the ED or urgent care for any respiratory illnesses since her last office visit. She has been treated for exacerbations of bronchitis by her PCP. Last treatment was quite a while ago. She has been compliant with Spiriva as prescribed. She denies any medication side effects. She is using her rescue inhaler approximately daily. She has requested a refill. She [...] kidney failure and reports that recently her tailor's aide took her off of her diuretics. She also admits that she was noncompliant with her CPAP up until about 2 weeks ago. She began reusing the CPAP and has noticed that she no longer awakens herself gasping for air while sleeping at night. She continues to sleep in the recliner. She does feel rested upon arising in the morning and notices that the CPAP is helping. She continues to smoke 1/2 pack of cigarettes daily. In the past she has tried nicotine patches and cold turkey and has been unsuccessful. She understands that her continued smoking is contributing to her continued lung function loss. PFTs completed on January 01, 2018 were reviewed, impression is irreversible moderate large airway disease with asymmetric reduction in diffusing capacity, noted that there is a significant worsening since PFTs were completed back in 2017. FVC 74% of predicted, FEV1 65% of predicted, FEV1/FVC 70% of predicted, TLC 93% predicted, RV 65% predicted and DLCO 67% of predicted. Intake Vital Signs02/05/18 Height 5 ft 4 in 02/05/18 Weight: 346 lb Intake Visit Reasons: 2 M FU Inventory Management Specialist Required: No Accompanied by: Family / Other Is patient in pain?: Yes Allergies amlodipine Allergy (Verified 02/05/18 07:15) severe edema atenolol Allergy (Verified 02/05/18 07:15) Swelling ciprofloxacin [From Cipro] Allergy (Verified 02/05/18 07:15) Itching ciprofloxacin HCl [From Cipro] Allergy (Verified 02/05/18 07:15) Itching estradiol [From Estrace] Allergy (Verified 02/05/18 07:15) Swelling meloxicam Allergy (Verified 02/05/18 07:15) Itching niacin Allergy (Verified 02/05/18 07:15) Itching Medications Albuterol Aerosols [Ventolin Aerosols] 2.5 mg INHALATION Q4H PRN PRN 05/03/15 [History Confirmed 02/05/18] Losartan Potassium [Cozaar] 100 mg PO BID 05/03/15 [History Confirmed 02/05/18] Omeprazole [Prilosec] 40 mg PO BID 05/03/15 [History Confirmed 02/05/18] Imipramine HCl [Tofranil] 50 mg PO QHS 05/07/16 [History Confirmed 02/05/18] Cholecalciferol (Vitamin D3) [Vitamin D3] 6,000 unit PO DAILY 08/31/16 [History Confirmed 02/05/18] Levothyroxine [Synthroid] 50 mcg PO DAILY 08/31/16 [History Confirmed 02/05/18] Loratadine [Claritin] 10 mg PO DAILY 08/31/16 [History Confirmed 02/05/18] Multivits,Ca,Minerals/Iron/FA [Women's Daily Formula Caplet] 1 tab PO DAILY 08/31/16 [History Confirmed 02/05/18] Tiotropium [place] [Spiriva 18 MCG] 1 puff INHALATION DAILY #1 inhaler 09/01/16 [Rx Confirmed 02/05/18] Aspirin [Aspir-Low] 81 mg PO DAILY 09/17/16 [History Confirmed 02/05/18] Magnesium 250 mg PO BID 09/17/16 [History Confirmed 02/05/18] Cyclobenzaprine [Flexeril] 10 mg PO BID PRN PRN 04/03/17 [History Confirmed 02/05/18] Diclofenac Sodium [Voltaren] 1 applic TP BID 04/03/17 [History Confirmed 02/05/18] Diltiazem HCl [Diltiazem 12Hr ER] 120 mg PO QHS 04/03/17 [History Confirmed 02/05/18] Duloxetine HCl 60 mg PO QHS 04/03/17 [History Confirmed 02/05/18] Hydrocodone/Acetaminophen [Hydrocodone-Acetamin 5-325 mg] 1 tab PO BID 04/03/17 [History Confirmed 02/05/18] Diltiazem HCl [Cartia Xt] 240 mg PO DAILY 07/07/17 [History Confirmed 02/05/18] albuterol sulfate HFA 90 mcg/actuation aerosol inhaler 2 puff INHALATION Q4H PRN PRN #18 g 02/05/18 [Rx Confirmed 02/05/18] fluticasone 50 mcg/actuation nasal spray,suspension 2 spray INTRANASAL DAILY #16 g 02/05/18 [Rx Confirmed 02/05/18] glycopyrrolate 9 mcg-formoterol 4.8 mcg HFA aerosol inhaler 2 puff INHALATION QAM AND QPM #1 inh 02/05/18 [Rx Confirmed 02/05/18] insulin degludec (U-100) 100 unit/mL (3 mL) subcutaneous pen 9 unit SC QHS ml 02/05/18 [History Confirmed 02/05/18] [facility] Medical History Continuous tobacco abuse (Chronic) WATTS (dyspnea on exertion) (Chronic) Obstructive sleep apnea (Chronic) Adult-onset obesity (Chronic) Pulmonary hypertension (Chronic) Stage 1 mild COPD by GOLD classification (Chronic) Social History Smoking Status: Current every day smoker second hand exposure: Yes alcohol intake: never substance use type: does not use caffeine: No what type of physical activity do you participate in: none Review of Systems Const CONSTITUTIONAL: Positive fatigue; negative anorexia, body ache, chills, daytime sleepiness, fever(s), night sweats, oral thrush, stops breathing during sleep, weight loss, sleeping in chair, weight loss, weight gain, frequent colds, seasonal allergies, other, headache(s) or orthopnea EETM Ear Nose Throat Mouth: Positive hearing normal and post nasal drip; negative hard of hearing, hoarseness, dry mouth in morning, change in vision, itchy eyes, eye pain, swallowing Difficulty, ear pain, nose bleed, headache(s), mouth pain, nasal congestion, nasal discharge, sinus pain, sinus pressure, sore throat or other Cardio Cardiovascular: Positive edema Location: lower extremity; negative chest pain, chest pain at rest, chest pain with activity, irregular heart rhythm, shortness of breath when lying down, palpitations, murmur or other Resp Respiratory: Positive as per HPI, shortness of breath shortness of breath: Positive with activity and cough cough: Positive non-productive; negative pain with cough, wheezing, chest congestion, chest tightness, pain on inspiration, inhalers, increase use of rescue inhalers, snoring, apnea or other Gastro Gastrointestional: Negative bloody stools, change in appetite, difficulty swallowing, reflux, hematemesis, melena stool, loose stool, constipation or other Genitourinary: Negative [...] and atraumatic; negative cyanosis of lips/distal nose Eyes Eye: Positive clear conjunctiva; negative nystagmus or scleral abnormality Ears Ear: Positive hearing normal and external ears normal; negative hard of hearing Nose Nose: Positive external nose normal and no nasal discharge; negative epistaxis Mouth Mouth: Positive post nasal drip, oral mucosae normal, crowded posterior oropharynx, no lesions and poor dentition; negative malodorous breath or oral thrush present Mallampati Score: IV: Mallampati Score Neck Neck: Positive normal visual inspection, full ROM and trachea midline; negative lymphadenopathy, JVD or tender Chest Wall Chest: Positive normal inspection of the chest and symmetric chest movement; negative increased A/P diameter Resp lung sounds: Positive clear to auscultation, diminished, normal expiratory time and normal respiratory effort; negative wheezes, rhonchi, rales, dullness to percussion or wheeze present on forced exhalation Cardio Cardiac: Positive regular rate, regular rhythm, S1 normal and S2 normal; negative murmur GI GI: Positive normal to inspection and obese; negative distended Genitourinary: Positive deferred Musc Musculoskeletal: Positive ROM normal and in a wheelchair; negative kyphosis or scoliosis Skin Pulmonary Skin Exam: Positive intact; negative rash or lesion Pulses Pulse: Yes pulses normal x4 extremities Extremities Extremities: Yes capillary refill normal, No clubbing, No cyanosis, Yes edema Location: lower extremity location: Bilateral pitting +3 Neuro Neurologic: Yes conversant, Yes no focal neuro deficits Lymph Lymphatic: No lymphadenopathy, No tenderness, No cervical adenopathy Psych Appearance: Positive grossly normal and eye contact Mental Status: Positive mental status grossly normal Mood: Positive congruent mood Affect: Positive normal affect Office Procedures Alpha One Finger Stick Alpha One Procedure performed by: Maryann Smith Alpha One Screening Test: Yes alpha one test completed, tolerated well and dressing applied Inhaler Training Inhaler Training Procedure performed by: Albania Brenner Inhaler Training: Yes personally trained on inhaler use, sample provided, first dose given in the office, expresses understanding and continue to monitor Smoking Cessation Time Spent greater than 10 minutes: Yes Coding Level of Care Code Off vis,est,level 4 Diagnoses Moderate COPD (chronic obstructive pulmonary disease) J44.9 Obstructive sleep apnea G47.33 Adult-onset obesity E66.9 Continuous tobacco abuse Z72.0 Chronic kidney disease, unspecified CKD stage N18.9 Renal failure chronicity: chronic Chronic kidney disease stage: unspecified stage Additional Codes Alpha One (NOCHG) Time Spent - greater than 10 minutes: Yes (21959) 02/05/18 1425 <Electronically signed by Albania Brenner NP-C> Date Albania Brenner NP-C Cosigner Signature: Date (if applicable) CC: Naomi Colunga DO PROGRESS Observed: 01/27/2018 Status: COMPLETED Source: [place] 12:29 PM [facility] REPOSITORY HNO ID: [id number] Author: HAKAN Mao (Ct) Service: (none) Author Type: Clinical Systems Analyst Engineer Type: Progress Notes Filed: 01/27/2018 12:29 PM Note Text: NAME:Janis Peters DATE: January 27, 2018 CCF#: [id number] Pelvis X-Ray and CROSS TABLE LATERAL Hip X-Ray COMPLETED TECH ID SIGN: VENTURA SIERRA PROGRESS Observed: 01/27/2018 Status: COMPLETED Source: [place] 11:25 AM [facility] REPOSITORY HNO ID: [id number] Author: Vijay Owusu Service: (none) Author Type: Physician Type: Progress Notes Filed: 02/26/2018 12:21 PM Note Text: CONSULT ORTHOPAEDIC: HIP PRIMARY CARE PHYSICIAN: Naomi Colunga DO REFERRING PROVIDER: SELF ASSESSMENT AND PLAN: Impression: Left Hip Severe Degenerative Osteoarthritis, Primary Morbid obesity Tobacco Addiction After discussion with Janis Peters, continued non-operative management of referral to the [facility] Bariatric/Metabolic Agency was chosen. The patient currently has had progressive symptoms. We had a long discussion about her need for a Left LINDEN and the currently unacceptable risk for her to undergo surgery with multiple modifiable risk factors. She is a poor candidate for hip replacement surgery at this point, but if she can benefit from a physician guided weight loss program, smoking cessation, and diabetes management she may be a candidate in the future. Progressive symptoms include: Pain impacting sleep or causing fatigue Pain worsened by weight bearing Pain effecting living situation Pain limiting ability to stay fit and healthy. The patient has been ordered: Referral to Metabolic/Bariatric Agency CONSULTS: Bariatric Consult for BMI level > 40. ACTIVE PROBLEM LIST Carpal Tunnel Syndrome of Left Wrist Chronic obstructive pulmonary disease, unspecified (HCC) Essential (Primary) Hypertension Gastro-Esophageal Reflux Disease Without Esophagitis Irritable Bowel Syndrome Without Diarrhea Detention (Current) Use of Aspirin Nicotine Dependence, Cigarettes, Uncomplicated Pain in Right Shoulder Type 2 Diabetes Mellitus With Complication, Without Long-Term Current Use of Insulin (Hcc) Paresthesia of Skin Unspecified Asthma, Uncomplicated History of Colon Polyps Belching Esophageal Reflux Obesity, Class III, BMI >= 40 (morbid obesity) E66.01 Pulmonary Hypertension (Hcc) Iga Nephropathy SUBJECTIVE CHIEF COMPLAINT: Hip Pain HPI: Janis Peters is a 47 year old female here for evaluation and management of Left hip pain. 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 The problem began limiting activities 3+ years ago. She was told no by her previous orthopedic surgeon and told to lose weight and quit smoking. She presents today with BMI of 59 and an unknown HgBA1C. She is increasingly confined to a seated/laying position due to her hip pain. Currently the pain in the joint is rated at 5 out of 10 with minimal activity. The pain is constant and is located in the left hip and groin. The pain is described as aching, dull, sharp and throbbing. Relieving factors include rest, ice and repositioning. There is no specific incident that brought about this pain. She had a previous intraarticular hip injection with near complete relief of her groin pain for a few weeks. She also complains of weakness, numbness, referred pain, stiffness, locking, popping and giving way. FUNCTIONAL STATUS: Climb a flight of stairs or walk up a hill (5.50 METs) Preoperative Ambulatory Status: Impaired Home Distances Number of Entry Steps: 6 Bedroom Location: Basement Bathroom Location: Basement Caregiver Assistance: Consistent/Live-In (5-7 days/wk) Home Location: [place] to 150 miles PREVIOUS TREATMENTS: Attempted Weight Loss Medical: Intolerant of NSAIDS, Steroid Injections Left Hip Physical Therapy: Use of Ambulatory Aid, Activities Modified and PT Three Months or Greater REVIEW OF SYSTEMS: PAIN ASSESSMENT: See HPI. MUSCULOSKELETAL: See HPI. Surgical Risk Factors: Autoimmune Disease, Chronic UTI's, COPD, Dental Disease, Diabetes, Historyof MRSA, Morbid Obesity, Prior Infection and Smoking PAST MEDICAL HISTORY Diagnosis Date - CTS (carpal tunnel syndrome) - Diabetes (HCC) - Fibromyalgia - Gastritis - GERD (gastroesophageal reflux disease) - Hypertension - IBS (irritable bowel syndrome) - Irregular heart beat - Kidney failure - Migraine - Neuropathy (HCC) - Osteoarthritis - Pulmonary hypertension (HCC) - Sciatica PAST SURGICAL HISTORY Procedure Laterality Date - BACK SURGERY HX 2007 plate and 4 screws - BLADDER SURGERY HX 1998 - CARPAL TUNNEL Right 1999 - CHOLECYSTECTOMY HX 2011 - COLONOS W/REM POLYP SNARE 1983 - COLONOSCOPY 05/21/2017 polyp, repeat in 5 yrs - EGD 05/21/2017 gastritis and esophagitis - FISSURE;SPHINCTEROTOMY/ANAL 1994 - HYSTERECTOMY HX 1998 both ovaries present - INJECTION 1999-ongoing back injections - LAMINECTOMY,CERVICAL 2003 - PLACEMENT, BILE DUCT STENT 2011 - TUBAL LIGATION 1993 FAMILY HISTORY Problem Relation Age of Onset - Cancer Father bladder Social History Marital status: Spouse name: Years of education: Number of children: Social History Main Topics Smoking status: Current Every Day Smoker Packs/day: 2.00 Years: 0.00 Types: Cigarettes Start date: 05/20/1983 Smokeless tobacco: Never Used Comment: down to 0.5 ppd currently - (05/20/17) Alcohol use: No Comment: occ Drug use: No ALLERGIES: Ciprofloxacin MEDICATIONS: hydrocortisone (ANUSOL-HC) 2.5 % rectal cream 1 application by RECTAL route twice daily. levothyroxine (SYNTHROID) 50 mcg tablet Take 1 tablet by mouth once daily. CARTIA XT 120 mg 24 hr capsule Take 1 tablet by mouth twice daily. imipramine HCl (TOFRANIL) 50 mg tablet Take 1 tablet by mouth once daily. loratadine 10 mg cap Take 10 mg by mouth once daily. Albuterol Sulfate 1.25 mg/3 mL nebulizer solution Use 1 Ampule via nebulizer every 6 hours as needed. cyclobenzaprine (FLEXERIL) 10 mg tablet Take 10 mg by mouth twice daily. HYDROcodone-acetaminophen (NORCO) 5-325 mg per tablet Take 1 tablet by mouth twice daily as needed. DULoxetine (CYMBALTA) 30 mg capsule Take 60 mg by mouth once daily. diclofenac sodium (VOLTAREN) 1 % topical gel Apply to affected area as needed. SPIRIVA WITH HANDIHALER 18 mcg inhalation capsule Inhale 18 mcg as instructed once daily. albuterol HFA (PROVENTIL HFA, VENTOLIN HFA) 90 mcg/actuation inhaler Inhale 2 Puffs as instructed. rOPINIRole Hydrochloride 3 mg tablet Take 3 mg by mouth once daily. Omeprazole 40 mg capsule Take 40 mg by mouth once daily. losartan (COZAAR) 100 mg tablet Take 200 mg by mouth once daily. aspirin, enteric coated (ASPIRIN, ENTERIC COATED) 81 mg EC tablet Take 81 mg by mouth once daily. CALCIUM CARBONATE/VITAMIN D3 (VITAMIN D-3 ORAL) Take 6,000 Units by mouth once daily. Magnesium 250 mg tab Take 250 mg by mouth twice daily. TRESIBA FLEXTOUCH U-100 100 unit/mL (3 mL) injection Inject 5 units every morning cholestyramine low-calorie (PREVALITE) 4 gram packet Take 1 Packet by mouth twice daily. potassium chloride ER (K-DUR, KLOR-CON) 20 mEq tablet Take 20 mEq by mouth twice daily. linagliptin (TRADJENTA) 5 mg tab Take 1 tablet by mouth once daily. chlorthalidone (HYGROTON) 25 mg tablet Take 25 mg by mouth every other day. topiramate (TOPAMAX) 100 mg tablet Take 300 mg by mouth once daily. multivitamin tablet Take 1 tablet by mouth once daily. PHYSICAL EXAM Ht 162.6 cm (5' 4) Wt (!) 156.9 kg (346 lb) LMP (LMP Unknown) BMI 59.39 kg/m? All other systems deferred. GENERAL: Obese HABITUS: Morbidly obese GAIT: Antalgic to the left HIP EXAM: Left: ROM: Extension: Normal Flexion: 110 degrees Internal Rotation: 10 degrees with groin pain. External Rotation: 20 degrees Abduction: 40 degrees Adduction: 30 degrees Strength: Abduction 5/5 and Flexion 5/5 Palpation: Pain with palpation of greater trochanter, SI joint, and lumbar spine. Log roll: non-painful. Straight leg raise: Negative Neurovascular Status: Sensation Intact and Moves foot and ankle up AND down DATA: Diagnostic tests reviewed for today's visit: Left hip X-Ray: Severe degenerative changes The following conditions were addressed during the office visit today: Obesity - Weight management strategies, Smoking - Cessation counseling, Diabetes - HgbA1C optimization, Malnutrition - Nutrition counseling and Poor dental hygiene - Dental evaluation SIGNATURE: Vijay Owusu MD PATIENT NAME: Janis Smith Jodi DATE: January 27, 2018 TIME: 11:25 AM CNOV Observed: 01/27/2018 Status: COMPLETED Source: [place] 10:40 AM [facility] REPOSITORY Office Visit (ORMDNA) JANIS PETERS ([id number]) 1970 F Date Time Provider Department 01/27/18 10:40 AM VIJAY OWUSU During your visit today, we recorded the following information about you: Weight Height 156.9 kg 1.626 m [facility] 01/27/2018 11:30 AM Signed Patient presents with: Left Hip Pain Vijay Owusu MD 02/26/2018 12:21 PM Signed CONSULT ORTHOPAEDIC: HIP PRIMARY CARE PHYSICIAN: Naomi Colunga DO REFERRING PROVIDER: SELF ASSESSMENT AND PLAN: Impression: Left Hip Severe Degenerative Osteoarthritis, Primary Morbid obesity Tobacco Addiction After discussion with Janis Peters, continued non-operative management of referral to the [facility] Bariatric/Metabolic Agency was chosen. The patient currently has had progressive symptoms. We had a long discussion about her need for a Left LINDEN and the currently unacceptable risk for her to undergo surgery with multiple modifiable risk factors. She is a poor candidate for hip replacement surgery at this point, but if she can benefit from a physician guided weight loss program, smoking cessation, and diabetes management she may be a candidate in the future. Progressive symptoms include: Pain impacting sleep or causing fatigue Pain worsened by weight bearing Pain effecting living situation Pain limiting ability to stay fit and healthy. The patient has been ordered: Referral to Metabolic/Bariatric Agency CONSULTS: Bariatric Consult for BMI level > 40. ACTIVE PROBLEM LIST Carpal Tunnel Syndrome of Left Wrist Chronic obstructive pulmonary disease, unspecified (HCC) Essential (Primary) Hypertension Gastro-Esophageal Reflux Disease Without Esophagitis Irritable Bowel Syndrome Without Diarrhea Detention (Current) Use of Aspirin Nicotine Dependence, Cigarettes, Uncomplicated Pain in Right Shoulder Type 2 Diabetes Mellitus With Complication, Without Long-Term Current Use of Insulin (Hcc) Paresthesia of Skin Unspecified Asthma, Uncomplicated History of Colon Polyps Belching Esophageal Reflux Obesity, Class III, BMI >= 40 (morbid obesity) E66.01 Pulmonary Hypertension (Hcc) Iga Nephropathy SUBJECTIVE CHIEF COMPLAINT: Hip Pain HPI: Janis Peters is a 47 year old female here for evaluation and management of Left hip pain. 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 The problem began limiting activities 3+ years ago. She was told no by her previous orthopedic surgeon and told to lose weight and quit smoking. She presents today with BMI of 59 and an unknown HgBA1C. She is increasingly confined to a seated/laying position due to her hip pain. Currently the pain in the joint is rated at 5 out of 10 with minimal activity. The pain is constant and is located in the left hip and groin. The pain is described as aching, dull, sharp and throbbing. Relieving factors include rest, ice and repositioning. There is no specific incident that brought about this pain. She had a previous intraarticular hip injection with near complete relief of her groin pain for a few weeks. She also complains of weakness, numbness, referred pain, stiffness, locking, popping and giving way. FUNCTIONAL STATUS: Climb a flight of stairs or walk up a hill (5.50 METs) Preoperative Ambulatory Status: Impaired Home Distances Number of Entry Steps: 6 Bedroom Location: Basement Bathroom Location: Basement Caregiver Assistance: Consistent/Live-In (5-7 days/wk) Home Location: [place] 150 miles PREVIOUS TREATMENTS: Attempted Weight Loss Medical: Intolerant of NSAIDS, Steroid Injections Left Hip Physical Therapy: Use of Ambulatory Aid, Activities Modified and PT Three Months or Greater REVIEW OF SYSTEMS: PAIN ASSESSMENT: See HPI. MUSCULOSKELETAL: See HPI. Surgical Risk Factors: Autoimmune Disease, Chronic UTI's, COPD, Dental Disease, Diabetes, Historyof MRSA, Morbid Obesity, Prior Infection and Smoking PAST MEDICAL HISTORY Diagnosis Date - CTS (carpal tunnel syndrome) - Diabetes (HCC) - Fibromyalgia - Gastritis - GERD (gastroesophageal reflux disease) - Hypertension - IBS (irritable bowel syndrome) - Irregular heart beat - Kidney failure - Migraine - Neuropathy (HCC) - Osteoarthritis - Pulmonary hypertension (HCC) - Sciatica PAST SURGICAL HISTORY Procedure Laterality Date - BACK SURGERY HX 2007 plate and 4 screws - BLADDER SURGERY HX 1998 - CARPAL TUNNEL Right 1999 - CHOLECYSTECTOMY HX 2011 - COLONOS W/REM POLYP SNARE 1983 - COLONOSCOPY 05/21/2017 polyp, repeat in 5 yrs - EGD 05/21/2017 gastritis and esophagitis - FISSURE;SPHINCTEROTOMY/ANAL 1994 - HYSTERECTOMY HX 1998 both ovaries present - INJECTION 1999-ongoing back injections - LAMINECTOMY,CERVICAL 2004 - PLACEMENT, BILE DUCT STENT 2011 - TUBAL LIGATION 1993 FAMILY HISTORY Problem Relation Age of Onset - Cancer Father bladder Social History Marital status: Spouse name: Years of education: Number of children: Social History Main Topics Smoking status: Current Every Day Smoker Packs/day: 2.00 Years: 0.00 Types: Cigarettes Start date: 05/20/1983 Smokeless tobacco: Never Used Comment: down to 0.5 ppd currently - (05/20/17) Alcohol use: No Comment: occ Drug use: No ALLERGIES: Ciprofloxacin MEDICATIONS: hydrocortisone (ANUSOL-HC) 2.5 % rectal cream 1 application by RECTAL route twice daily. levothyroxine (SYNTHROID) 50 mcg tablet Take 1 tablet by mouth once daily. CARTIA XT 120 mg 24 hr capsule Take 1 tablet by mouth twice daily. imipramine HCl (TOFRANIL) 50 mg tablet Take 1 tablet by mouth once daily. loratadine 10 mg cap Take 10 mg by mouth once daily. Albuterol Sulfate 1.25 mg/3 mL nebulizer solution Use 1 Ampule via nebulizer every 6 hours as needed. cyclobenzaprine (FLEXERIL) 10 mg tablet Take 10 mg by mouth twice daily. HYDROcodone-acetaminophen (NORCO) 5-325 mg per tablet Take 1 tablet by mouth twice daily as needed. DULoxetine (CYMBALTA) 30 mg capsule Take 60 mg by mouth once daily. diclofenac sodium (VOLTAREN) 1 % topical gel Apply to affected area as needed. SPIRIVA WITH HANDIHALER 18 mcg inhalation capsule Inhale 18 mcg as instructed once daily. albuterol HFA (PROVENTIL HFA, VENTOLIN HFA) 90 mcg/actuation inhaler Inhale 2 Puffs as instructed. rOPINIRole Hydrochloride 3 mg tablet Take 3 mg by mouth once daily. Omeprazole 40 mg capsule Take 40 mg by mouth once daily. losartan (COZAAR) 100 mg tablet Take 200 mg by mouth once daily. aspirin, enteric coated (ASPIRIN, ENTERIC COATED) 81 mg EC tablet Take 81 mg by mouth once daily. CALCIUM CARBONATE/VITAMIN D3 (VITAMIN D-3 ORAL) Take 6,000 Units by mouth once daily. Magnesium 250 mg tab Take 250 mg by mouth twice daily. TRESIBA FLEXTOUCH U-100 100 unit/mL (3 mL) injection Inject 5 units every morning cholestyramine low-calorie (PREVALITE) 4 gram packet Take 1 Packet by mouth twice daily. potassium chloride ER (K-DUR, KLOR-CON) 20 mEq tablet Take 20 mEq by mouth twice daily. linagliptin (TRADJENTA) 5 mg tab Take 1 tablet by mouth once daily. chlorthalidone (HYGROTON) 25 mg tablet Take 25 mg by mouth every other day. topiramate (TOPAMAX) 100 mg tablet Take 300 mg by mouth once daily. multivitamin tablet Take 1 tablet by mouth once daily. PHYSICAL EXAM Ht 162.6 cm (5' 4) Wt (!) 156.9 kg (346 lb) LMP (LMP Unknown) BMI 59.39 kg/m? All other systems deferred. GENERAL: Obese HABITUS: Morbidly obese GAIT: Antalgic to the left HIP EXAM: Left: ROM: Extension: Normal Flexion: 110 degrees Internal Rotation: 10 degrees with groin pain. External Rotation: 20 degrees Abduction: 40 degrees Adduction: 30 degrees Strength: Abduction 5/5 and Flexion 5/5 Palpation: Pain with palpation of greater trochanter, SI joint, and lumbar spine. Log roll: non-painful. Straight leg raise: Negative Neurovascular Status: Sensation Intact and Moves foot and ankle up AND down DATA: Diagnostic tests reviewed for today's visit: Left hip X-Ray: Severe degenerative changes The following conditions were addressed during the office visit today: Obesity - Weight management strategies, Smoking - Cessation counseling, Diabetes - HgbA1C optimization, Malnutrition - Nutrition counseling and Poor dental hygiene - Dental evaluation SIGNATURE: Vijay Owusu MD PATIENT NAME: Janis Peters DATE: January 27, 2018 TIME: 11:25 AM Referring Provider: SELF [[id number]] Allergies As of Date: 01/27/2018 Noted Allergy Reaction CIPROFLOXACIN 09/14/2014 9 - Itching Date Reviewed: 01/27/2018 Reviewed by: Mary Ann Trevino CT - Fully Assessed Reason for Visit: Left Hip Pain [1555] Visit Diagnoses:Morbid obesity with BMI of 50.0-59.9, adult (HCC) [E66.01, Z68.43] Spinal stenosis of lumbar region, unspecified whether neurogenic claudication present [M48.061] Primary osteoarthritis of left hip [M16.12] Order(s):[facility] [[id number]] Order #: [id number]: 1 Prescriptions as of 01/27/2018 Sig: HYDROCORTISONE 2.5 % TOPICAL * 1 application by RECTAL route* LEVOTHYROXINE 50 MCG TABLET Take 1 tablet by mouth once d* CARTIA XT 120 MG CAPSULE,EXTE* Take 1 tablet by mouth twice * IMIPRAMINE 50 MG TABLET Take 1 tablet by mouth once d* LORATADINE 10 MG CAPSULE Take 10 mg by mouth once daysi* ALBUTEROL SULFATE 1.25 MG/3 M* Use 1 Ampule via nebulizer ev* CYCLOBENZAPRINE 10 MG TABLET Take 10 mg by mouth twice theresa* HYDROCODONE 5 MG-ACETAMINOPHE* Take 1 tablet by mouth twice * DULOXETINE 30 MG CAPSULE,SHANTELL* Take 60 mg by mouth once daysi* DICLOFENAC 1 % TOPICAL GEL Apply to affected area as ne* SPIRIVA WITH HANDIHALER 18 MC* Inhale 18 mcg as instructed o* ALBUTEROL SULFATE HFA 90 MCG/* Inhale 2 Puffs as instructed. ROPINIROLE 3 MG TABLET Take 3 mg by mouth once daily* OMEPRAZOLE 40 MG CAPSULE,SHANTELL* Take 40 mg by mouth once daysi* LOSARTAN 100 MG TABLET Take 200 mg by mouth once theresa* ASPIRIN 81 MG TABLET,DELAYED * Take 81 mg by mouth once daysi* VITAMIN D-3 ORAL Take 6,000 Units by mouth onc* MAGNESIUM 250 MG TABLET Take 250 mg by mouth twice da* TRESIBA FLEXTOUCH U-100 INSUL* Inject 5 units every morning CHOLESTYRAMINE-ASPARTAME 4 GR* Take 1 Packet by mouth twice * Patient not taking: Reported on 01/27/2018 POTASSIUM CHLORIDE ER 20 MEQ * Take 20 mEq by mouth twice da* LINAGLIPTIN 5 MG TABLET Take 1 tablet by mouth once d* Patient not taking: Reported on 01/27/2018 CHLORTHALIDONE 25 MG TABLET Take 25 mg by mouth every oth* TOPIRAMATE 100 MG TABLET Take 300 mg by mouth once theresa* MULTIVITAMIN TABLET Take 1 tablet by mouth once d* Problem List As Of Date 01/27/2018 Noted Resolved Carpal tunnel syndrome of left wrist [G56.02] INVALID FOR* Chronic obstructive pulmonary disease, unspecif*INVALID FOR* Essential (primary) hypertension [I10] INVALID FOR* Gastro-esophageal reflux disease without esopha*INVALID FOR* Hyperlipidemia, unspecified [E78.5] INVALID FOR*05/20/2017 Irritable bowel syndrome without diarrhea [K58.*INVALID FOR* FPC (current) use of aspirin [Z79.82] INVALID FOR* Nicotine dependence, cigarettes, uncomplicated *INVALID FOR* Pain in right shoulder [M25.511] INVALID FOR* Type 2 diabetes mellitus with complication, wit*INVALID FOR* Paresthesia of skin [R20.2] INVALID FOR* Unspecified asthma, uncomplicated [J45.909] INVALID FOR* History of colon polyps [Z86.010] INVALID FOR* More... Belching [R14.2] INVALID FOR* More... Esophageal reflux [K21.9] INVALID FOR* More... Obesity, Class III, BMI >= 40 (morbid obesity) *INVALID FOR* Pulmonary hypertension (HCC) [I27.20] IgA nephropathy [N02.8] Visit Notes: >> Mary Ann Ambrosio Jan 27, 2018 11:21 AM Status: Signed Patient presents with: Left Hip Pain Encounter Status:Closed by VIJAY OWUSU MD on 02/26/18 XR HIP 2V AP/ LAT Observed: 01/27/2018 Status: F Source: [facility] 10:35 AM CLINIC OTHER CAMPUS REPOSITORY * * *Final Report* * * DATE OF EXAM: Jan 27 2018 10:35AM NUVIA 5279 - XR HIP 2V AP/ LAT LT / PROCEDURE REASON: M25.552-Pain in left hip * * * * Physician Interpretation * * * * PROCEDURE: Left hip INDICATION: Pain in left hip . TECHNIQUE: AP pelvis, crosstable lateral left hip COMPARISON: None FINDINGS: There is significant diffuse left hip joint space narrowing with subchondral sclerosis and marginal spur formation. No evidence for avascular necrosis. Moderate narrowing of the right hip joint. Postoperative change in the lower lumbar spine. No fracture. IMPRESSION: Advanced left hip osteoarthrosis Training And Development Manager: P[employer] Transcribe Date/Time: Jan 27 2018 11:23A Dictated by : FLAKITA COOLEY MD This examination was interpreted and the report reviewed and electronically signed by: FLAKITA COOLEY MD on Jan 27 2018 11:24AM EST [id number] PULMONARY FUNCTION Observed: 01/02/2018 Status: F Source: [facility] COMP 6:09 AM [facility] [place] [facility] Pulmonary Services/Neurology [address] [place] [address] MR#: [id number] Acct: [id number] Name: JANIS PETERS Rep #: [id number] : 1970 47 From: Say Rosa MD Referring Dr: Albania Bernner REGULATORY AFFAIRS SPECIALIST Status: REG CLI Ordering Dr: Date: Location: N Sex: F C COMPLETE PULMONARY FUNCTION TEST INTERPRETATION Brief HPI: Patient is a 47 year old female, currently under the care of Albania Brenner, who presents to [facility] for complete pulmonary function tests secondary to diagnosis of dyspnea. Respiratory therapist reports good effort and reproducible results. Interpretation: Forced expiration spirometry shows a moderate large airways obstructive ventilatory defect with an FEV1 of 64% predicted. There is no significant bronchodilator response by ATS criteria. Spirograms are of good quality and plateau slowly, indicating slowly emptying areas of the lungs. The respiratory flow volume loop shows decreased expiratory flow rates at all lung volumes consistent with airway obstruction. Lung volumes by body plethysmography show a normal total lung capacity at 4.62 L, 93% predicted. All other lung volumes are within normal limits. Diffusion capacity by carbon monoxide is decreased at 67% predicted. The airway resistance is normal. Compared to previous pulmonary function tests from 10/17/2016, there has been a significant reduction in FVC, FEV1 and TLC by 17%, 20% and 14% respectively. Impression: Irreversible moderate large airways obstructive ventilatory defect with a symmetric reduction diffusing capacity consistent with COPD. Patient has had significant worsening compared to study in 2017. 01/02/1809 <Electronically signed by Say Rosa MD> Date Say Rosa MD CC: Say Rosa MD; [place]ia Brenner; Naomi Colunga DO Date Dictated: 01/02/18605 Date Transcribed: 01/02/18605 Training And Development Manager: CAREN Smith EMERGENCY DEPARTMENT Observed: 12/05/2017 Status: F Source: [place] SUMMARY 8:43 AM [facility] [place] [facility] Medical Records Department [address] [place] [address] Emergency Department Summary 12/05/17 0651 MR#: [id number] Acct: [id number] Name: JANIS PETERS Rep #: [id number] : 1970 47 From: Alvarez Vu PCP: Naomi Colunga DO Status: DEP ER - ER Visit Summary Date of Service: 12/05/17 Chief Complaint: Back pain History of Present Illness: The patient is a 47 F history of chronic lower back pain left hip pain for years. no new injuries. She sees pain management Dr. Almodovar. Has had injections in the past. She is on [place] 1-2 tabs at night. History of renal insufficiency per patient. Ambulates with a cane. Physical Examination: General: Alert and oriented 3, no acute distress HEENT: Normocephalic, atraumatic. Moist mucosa membranes Neck: supple, nontender. Cardiovascular: Regular rate and rhythm, no murmurs Respiratory: Normal breath sounds, symmetric, no distress Back: Tender palpation Lumbar left. Straight leg test negative. Negative logroll left hip. Abdomen: Soft, nontender, nondistended Extremities: Nontender, no edema, pulses intact 4 Neuro: no focal neurological deficits. Test Results: [] Emergency Department Course and Treatment: Patient with chronic symptoms. Denies any cauda equina symptoms. Patient sees pain management. Discussed subcu opiate injection of Dilaudid. Prior to discharge had itching, p.o. Benadryl was given. She will follow-up with her pain physicians for reevaluation. Treatment Plan: [] Disposition: Discharge Impression: 1. Chronic back pain 2. Chronic left hip pain This note was generated with SimpleSite dictation software. It may contain incorrect words, spelling, and punctuation that were not noted in review of the chart prior to signing ED Disposition - Plan for ED Patient: Disposition: Home or Assisted Living Chief Complaint: Back Diagnosis: Chronic back pain, Chronic left hip pain Instructions: ED Chronic Pain Management Referrals: Naomi Colunga DO [Primary Care Provider] - Keith Almodovar [NON-STAFF] - What to do if you have Problems For any increased pain, shortness of breath, bleeding, nausea or vomiting, chest pain, or any unexpected problems, contact your Primary Care Provider. Call [facility] ([phone]) or report to the closest Emergency Room. Call 911 if necessary. 12/05/17 0843 <Electronically signed by Alvarez Vu> Date Alvarez Vu Cosigner Signature (If Indicated): Date CC: Naomi Colunga DO CBC-COMPLETE BLOOD CNT Collected: 12/02/2017 Status: F Source: [place] NO DIFF 12:45 PM [facility] [place] TYPE CODE TESTS RESULT OUT OF RANGE REFERENCE UNITS LAB L100.1000 4.4-11.0 K/mm3 Normal WBC 11.0 LAB L100.1200 4.2-5.4 M/mm3 Normal RBC 4.74 LAB L100.1300 12.0-15.0 g/dl Normal HGB 13.1 LAB L100.1400 37-47 % Normal HCT 41.9 LAB L100.1500 81-99 fL Normal MCV 88.4 LAB L100.1600 27.0-32.0 pg Normal MCH 27.6 LAB L100.1700 32-36 g/gl Low MCHC 31.3 LAB L100.1810 11.6-14.6 % Normal RDW CV 14.3 LAB L100.1820 35.1-43.9 fl High RDW SD 46.3 LAB L100.1900 150-450 K/mm3 Normal PLT 315 LAB L100.2000 6.2-12.0 fl Normal MPV 10.5 Performed By: #### L100.0500 #### [facility] [address] [place] [place], [address] PROTEIN+CREATININE Collected: Status: F Source: [facility]INE 12/02/2017 12:45 PM [facility] [place] TYPE CODE TESTS RESULT OUT OF RANGE REFERENCE UNITS LAB L501.1200 NO RANGE EST. mg/dL Normal UR CREAT 64.60 LAB L501.1930 <11.9 mg/dL High 193.2 PROTEIN,UR.R AN. LAB L501.1940 0-200 mg/g CRE High PROT:CRE 2991 RATIO Performed By: #### L501.0900 #### [facility] [address] [place] [place], [address] RENAL PROFILE Collected: 12/02/2017 Status: F Source: [place] 12:45 PM [facility] [place] TYPE CODE TESTS RESULT OUT OF RANGE REFERENCE UNITS LAB L501.0100 74-106 mg/dL High GLU 150 Result Comment: Fasting Glucose result greater than or equal to 126 mg/dL suggests DIABETES MELLITUS per A.D.A. criteria. Please note revised GLUCOSE reference range effective 2017. LAB L501.1000 7-18 mg/dL Normal BUN 13 LAB L501.1100 0.55-1.02 mg/dL High CREAT,SERUM 1.03 Result Comment: The validity of the calculated GFR AND GFRAA in patients over 70 years has not been determined. Clinical correlation is essential. LAB L501.1110 >60 mL/min Normal EST GFR 61 Result Comment: Non- GFR Calc LAB L501.1115 >60 mL/min Normal EST GFR - AA 73 Result Comment: GFR Calc LAB L501.1300 10-20 RATIO Normal BUN/CRE 12.6 LAB L501.1800 3.2-5.0 g/dL Low ALB 3.1 LAB L501.2200 8.5-10.1 mg/dL CA Normal 9.0 LAB L501.2300 2.5-4.9 mg/dL Normal PHOS 3.2 LAB L501.5300 136-145 mmol/L NA Normal 138 LAB L501.5600 3.5-5.1 mmol/L K Normal 4.0 LAB L501.5900 98-107 mmol/L CL Normal 104 LAB L501.6100 21.0-32.0 mmol/L Normal CO2 25.0 Performed By: #### L500.3600 #### [facility] [address] [facility] [place], [address] PTHIN Collected: 12/02/2017 Status: F Source: [place] 12:45 PM [facility] [place] TYPE CODE TESTS RESULT OUT OF RANGE REFERENCE UNITS LAB L509.1000 18.4-80.1 pg/mL Normal PTHIN 38.7 Performed By: #### L509.1000 #### [facility] [address] [place], [address] VITAMIN D,25 HYDROXY Collected: 12/02/2017 Status: F Source: [place] 12:45 PM [facility] [place] TYPE CODE TESTS RESULT OUT OF RANGE REFERENCE UNITS LAB L506.1000 29.95-100.01 ng/mL Normal Vitamin D 36.6 25-OH Result Comment: Vitamin D 25(OH) Status Range Deficiency <20 ng/mL (50nmol/L) Insuffciency 20 - 30 ng/mL (50 - 75 nmol/L) Sufficiency 30 - 100 ng/mL (75 - 250 nmol/L) Toxicity >100 ng/mL (>250 nmol/L) Performed By: #### L506.1000 #### [facility] [address] [place], [address] HEMOGLOBIN A1C Collected: 11/12/2017 Status: F Source: [place] 1:17 PM [facility] [place] TYPE CODE TESTS RESULT OUT OF RANGE REFERENCE UNITS LAB L501.9985 4.2-6.3 % High HGB A1C 6.4 Performed By: #### L501.9985 #### [facility] [address] [place], [address] CBC-COMPLETE BLOOD CNT Collected: 11/12/2017 Status: F Source: [place] NO DIFF 1:11 PM [facility] [place] TYPE CODE TESTS RESULT OUT OF RANGE REFERENCE UNITS LAB L100.1000 4.4-11.0 K/mm3 Normal WBC 8.1 LAB L100.1200 4.2-5.4 M/mm3 Normal RBC 4.44 LAB L100.1300 12.0-15.0 g/dl Normal HGB 12.3 LAB L100.1400 37-47 % Normal HCT 39.5 LAB L100.1500 81-99 fL Normal MCV 89.0 LAB L100.1600 27.0-32.0 pg Normal MCH 27.7 LAB L100.1700 32-36 g/gl Low MCHC 31.1 LAB L100.1810 11.6-14.6 % High RDW CV 15.0 LAB L100.1820 35.1-43.9 fl High RDW SD 48.1 LAB L100.1900 150-450 K/mm3 Normal PLT 240 LAB L100.2000 6.2-12.0 fl Normal MPV 10.1 Performed By: #### L100.0500 #### [facility] [address] [place], [place], [address] PROTEIN+CREATININE Collected: Status: F Source: [place] SU,URINE 11/12/2017 1:11 PM [facility] [place] TYPE CODE TESTS RESULT OUT OF RANGE REFERENCE UNITS LAB L501.1200 NO RANGE EST. mg/dL Normal UR CREAT 67.70 LAB L501.1930 <11.9 mg/dL High 133.6 PROTEIN,UR.R AN. LAB L501.1940 0-200 mg/g CRE High PROT:CRE 1973 RATIO Performed By: #### L501.0900 #### [facility] [address] [place], [address] RENAL PROFILE Collected: 11/12/2017 Status: F Source: [place] 1:11 PM [facility] [place] TYPE CODE TESTS RESULT OUT OF RANGE REFERENCE UNITS LAB L501.0100 74-106 mg/dL High GLU 175 Result Comment: Fasting Glucose result greater than or equal to 126 mg/dL suggests DIABETES MELLITUS per A.D.A. criteria. Please note revised GLUCOSE reference range effective 2017. LAB L501.1000 7-18 mg/dL High BUN 20 LAB L501.1100 0.55-1.02 mg/dL High CREAT,SERUM 1.08 Result Comment: The validity of the calculated GFR AND GFRAA in patients over 70 years has not been determined. Clinical correlation is essential. LAB L501.1110 >60 mL/min Low EST GFR 58 Result Comment: Non- GFR Calc LAB L501.1115 >60 mL/min Normal EST GFR - AA 70 Result Comment: GFR Calc LAB L501.1300 10-20 RATIO Normal BUN/CRE 18.5 LAB L501.1800 3.2-5.0 g/dL Low ALB 3.0 LAB L501.2200 8.5-10.1 mg/dL CA Normal 8.8 LAB L501.2300 2.5-4.9 mg/dL Normal PHOS 3.0 LAB L501.5300 136-145 mmol/L NA Normal 140 LAB L501.5600 3.5-5.1 mmol/L K Normal 3.9 LAB L501.5900 98-107 mmol/L CL Normal 107 LAB L501.6100 21.0-32.0 mmol/L Normal CO2 24.0 Performed By: #### L500.3600 #### [facility] [address] [place], [address] VITAMIN D,25 HYDROXY Collected: 11/12/2017 Status: F Source: [place] 1:11 PM [facility] [place] TYPE CODE TESTS RESULT OUT OF RANGE REFERENCE UNITS LAB L506.1000 29.95-100.01 ng/mL Normal Vitamin D 42.2 25-OH Result Comment: Vitamin D 25(OH) Status Range Deficiency <20 ng/mL (50nmol/L) Insuffciency 20 - 30 ng/mL (50 - 75 nmol/L) Sufficiency 30 - 100 ng/mL (75 - 250 nmol/L) Toxicity >100 ng/mL (>250 nmol/L) Performed By: #### L506.1000 #### [facility] [address] [place], [address] PTHIN Collected: 11/12/2017 Status: F Source: [place] 1:11 PM [facility] [place] TYPE CODE TESTS RESULT OUT OF RANGE REFERENCE UNITS LAB L509.1000 18.4-80.1 pg/mL Normal PTHIN 22.2 Performed By: #### L509.1000 #### [facility] [address] [place], [address] DISCHARGE INSTRUCTION Observed: 10/20/2017 Status: F Source: [place] 2:11 PM [facility] [place] [facility] Medical Records Department [address] [place] [address] [place] [address] Discharge Instruction 10/20/17 1410 MR#: [id number] Acct: [id number] Name: JANIS PETERS Rep #: [id number] : 1970 47 From: Estephania Shay MD PCP: Naomi Colunga DO Status: REG ER ED Disposition - Plan for ED Patient: Chief Complaint: Abd Pain Instructions: ED Constipation Referrals: Naomi Colunga DO [Primary Care Provider] - Kerrie Eng MD [STAFF PHYSICIAN] - Zak Gonsalez MD [STAFF PHYSICIAN] - What to do if you have Problems For any increased pain, shortness of breath, bleeding, nausea or vomiting, chest pain, or any unexpected problems, contact your Primary Care Provider. Call [facility] ([phone]) or report to the closest Emergency Room. Call 911 if necessary. 10/20/17 1411 <Electronically signed by Estephania Shay MD> Date Estephania Shay MD Cosigner Signature (If Indicated): Date CC: Naomi Colunga DO DISCHARGE INSTRUCTION Observed: 10/20/2017 Status: F Source: [place] 2:10 PM [facility] REPOSITORY [facility] Medical Records Department [address] [place] [address] Discharge Instruction 10/20/17 1409 MR#: [id number] Acct: [id number] Name: JANIS PETERS Rep #: [id number] : 1970 47 From: Estephania Shay MD PCP: Naomi Colunga DO Status: REG ER ED Disposition - Plan for ED Patient: Chief Complaint: Abd Pain Instructions: ED Constipation Referrals: Naomi Colunga DO [Primary Care Provider] - Zak Gonsalez MD [STAFF PHYSICIAN] - Kerrie Eng MD [STAFF PHYSICIAN] - What to do if you have Problems For any increased pain, shortness of breath, bleeding, nausea or vomiting, chest pain, or any unexpected problems, contact your Primary Care Provider. Call [facility] ([phone]) or report to the closest Emergency Room. Call 911 if necessary. 10/20/17 1410 <Electronically signed by Estephania Shay MD> Date Estephania Shay MD Cosigner Signature (If Indicated): Date CC: Naomi Colunga DO EMERGENCY DEPARTMENT Observed: 10/20/2017 Status: F Source: [place] SUMMARY 2:09 PM [facility] REPOSITORY [facility] Medical Records Department [address] [place] [address] Emergency Department Summary 10/20/17 1009 MR#: [id number] Acct: [id number] Name: RUBEN PETERSA Luis Rep #: [id number] : 1970 47 From: Estephania Shay MD PCP: Naomi Colunga DO Status: REG ER - ER Visit Summary Date of Service: 10/20/17 Chief Complaint: Abdominal pain History of Present Illness: The patient is a 47 F presenting with abdominal pain. She states that she has had constipation and has been unable to have a bowel movement for the past 8 days. She has nausea without vomiting. She was seen by her primary care physician who was concerned about possibility of left inguinal hernia. She was referred to Dr. Gonsalez. Physical Examination: Vitals are stable. Patient is [...] is unremarkable. Emergency Department Course and Treatment: Patient is given IV Zofran, morphine. CBC, chemistries unremarkable other than creatinine 1.42. Urinalysis unremarkable. CT abdomen pelvis with IV and oral contrast was obtained and shows hepatomegaly and fatty infiltration of the liver. Tiny air bubble in the right pararectal space most likely secondary to remote incision and drainage of the perirectal abscess. Findings were discussed with Dr. Eng who performed her perirectal abscess drainage. She will be treated for constipation and will follow-up in her office. Advised return to ED for worsening complaints. Disposition: Discharge home Impression: Abdominal pain, constipation This note was generated with SimpleSite dictation software. It may contain incorrect words, spelling, and punctuation that were not noted in review of the chart prior to signing ED Disposition - Plan for ED Patient: Chief Complaint: Abd Pain Referrals: Naomi Colunga, [Primary Care Provider] - What to do if you have Problems For any increased pain, shortness of breath, bleeding, nausea or vomiting, chest pain, or any unexpected problems, contact your Primary Care Provider. Call [employer] [facility] ([phone]) or report to the closest Emergency Room. Call 911 if necessary. 10/20/17 1401 <Electronically signed by Estephania Shay MD> Date Estephania Shay MD Cosigner Signature (If Indicated): Date CC: Naomi Colunga DO URINALYSIS, COMPLETE Collected: 10/20/2017 Status: F Source: [place] 11:20 AM [facility] [place] Order Comment: Order Date: 10/20/17 Has pt arrived? Y How was Urine Obtained? CLEAN CATCH TYPE CODE TESTS RESULT OUT OF RANGE REFERENCE UNITS LAB L400.3000 Yellow COLOR Normal Yellow LAB L400.3050 Clear Normal CLARITY Clear LAB L400.3200 Normal mg/dl Normal GLUCOSE, UR Normal LAB L400.3300 Negative mg/dL Normal BILIRUBIN URINE Negative LAB L400.3400 Negative mg/dl Normal KETONE UR Negative LAB L400.3465 1.002-1.030 Normal SP.GR. DIPSTX 1.010 LAB L400.3550 5.0 - 8.0 pH UR Normal 6.5 LAB L400.3600 Negative mg/dl High PROT DIPSTX 100 LAB L400.3700 Normal mg/dl Normal UROBILI Normal LAB L400.3750 Negative Normal NITRITE UR Negative LAB L400.3780 Negative /ul High 10 OCCULT BLOOD-UR LAB L400.3800 Negative /ul LEUK Normal ESTERASE Negative LAB L400.4050 0-5 /hpf WBC Normal 0-5 SEEN LAB L400.4100 0-5 /hpf 0 Normal RBC-UA SEEN LAB L400.4150 5-10 /hpf SQUAM Normal EPI 0-5 SEEN LAB L400.4300 None Seen /hpf Normal BACTERIA RARE LAB L400.4350 <or=2+ /hpf 0 Normal MUCUS, URINE SEEN Performed By: #### L400.0001 #### [facility] [address] [place], [place], [address] CBC W/DIFF, AUTOMATED Collected: 10/20/2017 Status: F Source: [place] 10:20 AM [facility] [place] [facility] TYPE CODE TESTS RESULT OUT OF RANGE REFERENCE UNITS LAB L100.1000 4.4-11.0 K/mm3 Normal WBC 7.0 LAB L100.1200 4.2-5.4 M/mm3 Normal RBC 4.55 LAB L100.1300 12.0-15.0 g/dl Normal HGB 12.4 LAB L100.1400 37-47 % Normal HCT 39.2 LAB L100.1500 81-99 fL Normal MCV 86.2 LAB L100.1600 27.0-32.0 pg Normal MCH 27.3 LAB L100.1700 32-36 g/gl Low MCHC 31.6 LAB L100.1810 11.6-14.6 % High RDW CV 14.9 LAB L100.1820 35.1-43.9 fl High RDW SD 46.6 LAB L100.1900 150-450 K/mm3 Normal PLT 245 LAB L100.2000 6.2-12.0 fl Normal MPV 10.0 LAB L100.2100 47-70 % Normal NEUT% 56.1 LAB L100.2200 19-41 % Normal LY% 34.4 LAB L100.2300 0-10 % Normal MONO% 5.9 LAB L100.2400 0-5 % Normal EO% 2.9 LAB L100.2500 0-1 % Normal BASO% 0.6 LAB L100.2550 0.0-0.9 % Normal IM GRAN % 0.100 Result Comment: IG% - Immature Granulocytes (promyelocytes, myelocytes and metamyelocytes) > 1% indicates that a LEFT SHIFT is Present. LAB L100.2620 2.0-7.7 X10 3/uL Normal Absolute Neut 3.9 LAB L100.2720 0.83-4.51 X10 3/ul Normal Absolute Lymph 2.39 Performed By: #### L100.0100 #### [facility] [address] [place], [place], [address] COMPREHENSIVE METABOLIC Collected: 10/20/2017 Status: F Source: [facility] 10:20 AM [facility] [place] [facility] TYPE CODE TESTS RESULT OUT OF RANGE REFERENCE UNITS LAB L501.0100 74-106 mg/dL High GLU 161 Result Comment: Fasting Glucose result greater than or equal to 126 mg/dL suggests DIABETES MELLITUS per A.D.A. criteria. Please note revised GLUCOSE reference range effective 2017. LAB L501.1000 7-18 mg/dL Normal BUN 17 LAB L501.1100 0.55-1.02 mg/dL High CREAT,SERUM 1.42 Result Comment: The validity of the calculated GFR AND GFRAA in patients over 70 years has not been determined. Clinical correlation is essential. LAB L501.1110 >60 mL/min Low EST GFR 42 Result Comment: Non- GFR Calc LAB L501.1115 >60 mL/min Low EST GFR - AA 51 Result Comment: GFR Calc LAB L501.1255 ml/min Normal Estimated CRCL 41.84 LAB L501.1300 10-20 RATIO Normal BUN/CRE 12.0 LAB L501.1500 6.4-8. g/dL Normal 2 T PROT 7.4 LAB L501.1800 3.2-5. g/dL Low 0 ALB 3.0 LAB L501.1950 2.2-4. g/dL High 2 GLOB 4.4 LAB L501.2000 0.9-2. RATIO Low 4 A/G 0.7 LAB L501.2200 8.5-10 mg/dL Normal .1 CA 8.7 LAB L501.4100 15-37 U/L Normal AST 32 LAB L501.4305 45-117 U/L Normal ALK P 77 LAB L501.4405 13-56 U/L Normal ALT 42 LAB L501.4600 0.20-1 mg/dL Normal .00 T BILI 0.30 LAB L501.5300 136-14 mmol/L Normal 5 NA 139 LAB L501.5600 3.5-5. mmol/L Low 1 K 3.4 LAB L501.5900 98-107 mmol/L Normal CL 104 LAB L501.6100 21.0-3 mmol/L Normal 2.0 CO2 25.0 LAB L501.6200 5-15 Normal GAP 10 Performed By: #### L500.4050 #### [facility] [address] [place], [place], [address] ABDOMEN/PELVIS WITH Observed: 10/20/2017 Status: F Source: [place] CONTRAST 10:08 AM [facility] [place] [facility] Imaging Services [address] [place] [address] Abdomen/Pelvis WITH Contrast MR#: [id number] Acct: [id number] Name: JANIS PETERS Rep #: [id number] : 1970 F 47 From: Matt Beckwith MD PCP: Naomi Colunga DO Status: REG ER Study: Abdomen/Pelvis WITH Contrast Date of Exam: 10/20/17 Exam# [id number] Ordering Dr: Estephania Shay MD STUDY: CT ABDOMEN AND PELVIS WITH CONTRAST REASON FOR EXAM: Female, 47 years old. Nausea and chills. No bowel movements for 8 days. RADIATION DOSAGE (If Supplied By Facility): CTDIvol = ( 21.87 ) mGy, DLP = ( 1722.09 ) mGycm TECHNIQUE: Transaxial images were obtained from the dome of the diaphragm to the symphysis pubis with oral contrast. 100 ml of Isovue 300 contrast was administered. Sagittal and coronal images were reconstructed. Individualized dose optimization techniques were used for this CT. COMPARISON: Comparison is made with prior study dated November 06, 2016. FINDINGS: The visualized lung bases are unremarkable. The visualized portions of the heart are within normal limits. There is decreased attenuation of the liver consistent with steatosis. Hepatomegaly. There are surgical clips in the gallbladder fossa consistent with a prior cholecystectomy. Normal spleen. Normal pancreas. Normal bilateral adrenal glands. Normal right kidney. Normal left kidney. There is a small hiatal hernia. Normal small intestine. Normal colon. There is non-visualization of the appendix. Normal abdominal aorta. Normal inferior vena cava. Normal retroperitoneum. Normal urinary bladder. There is absence of the uterus consistent with a prior hysterectomy. Tiny air bubble in the right pararectal space. This is the site of prior incision and drainage of a right perirectal abscess. There is a small umbilical [...] Matt Beckwith MD at 13:14 EDT Tel [phone], Service support , CC: Estephania Shay MD; Naomi Colunga DO Training And Development Manager: Signed Observed: 10/10/2017 Status: F Source: [place] CULTURE, URINE 12:52 PM [facility] [place] [facility] Urine Culture ORGANISM 1: Escherichia coli [place] Count >100,000 Escherichia coli: REACTION Amoxacillin/Clavulanic Acid $ 4 S Ampicillin $ >=32 R Ampicillin/Sulbactam $ 16 I Cefazolin $ <=4 S Cefepime $ <=1 S Ceftriaxone $ <=1 S Ciprofloxacin $ >=4 R ESBL - Ertapenim $$$ <=0.5 S Gentamicin $ <=1 S Imipenem *NF <=0.25 S Levofloxacin $ >=8 R Nitrofurantoin $ 32 S Piperacillin/Tazobactam $$ <=4 S Tobramycin $ <=1 S Trimethoprim/Sulfametho $ <=20 S (NF) indicates non-formulary drug at [facility]. Approval by Infectious Disease Specialist required before non-formulary drugs may be ordered and/or dispensed. Performed By: #### M100.0650 #### [facility] [address] [place], [address] 6 MINUTE WALK TEST Observed: 10/03/2017 Status: F Source: [place] 1:22 PM [facility] [place] [facility] Pulmonary Services/Neurology [address] [place] [address] MR#: [id number] Acct: [id number] Name: JANIS PETERS Rep #: [id number] : 1970 47 From: Say Rosa MD Referring Dr: Albania Brenner NP Date: Ordering Dr: Sex: F C Location: PSN PSN 6 Minute Walk Test - 6 Minute Walk Test 6 Minute Walk Test: 6 Minute Walk Test PSN:6-Minute Walk Test Start: 10/03/17 11:21 Freq: Status: Active Protocol: RESP.6MINW Document 10/03/17 10:55 [facility] (Rec: 10/03/17 11:24 [facility] [id number]) 6 Minute Walk Test Date Performed 10/03/17 Time Performed 10:55 Height 5 ft 4 in Weight: 151.953 kg Weight in Pounds 335.[address]: Albania Brenner Assistive device used: Cane Pre-test Oxygen Delivery Method Room Air Pulse Ox (%) 98 Pulse Rate (60-100 beats/min) 98 Dyspnea Daniel Scale (0-10) 0 Exertion Daniel Scale (6-20) 6 1st minute Oxygen Delivery Method Room Air Pulse Ox (%) 95 Pulse Rate (60-100 beats/min) 108 H Number of Rests Taken 0 2nd minute [...] Number of Rests Taken 1 Post-test Oxygen Delivery Method Room Air Pulse [...] a cane. The patient did require 3 breaks to complete the 6 minute walk. No significant desaturation was noted, but patient did have persistent tachycardia with a peak heart rate of 137 bpm. These findings are consistent with a cardiovascular and musculoskeletal limitation exercise tolerance. - Recommendations Recommendations: No supplemental oxygen is indicated at this time. 10/03/17 1322 <Electronically signed by Say Rosa MD> Date Say Rosa MD CC: Date Dictated: 10/03/171320 Date Transcribed: 10/03/171320 Training And Development Manager: Say Rosa Signed CBC-COMPLETE BLOOD CNT Collected: 09/26/2017 Status: F Source: [place] NO DIFF 11:38 AM [facility] [place] [facility] TYPE CODE TESTS RESULT OUT OF RANGE REFERENCE UNITS LAB L100.1000 4.4-11.0 K/mm3 Normal WBC 7.7 LAB L100.1200 4.2-5.4 M/mm3 Normal RBC 4.74 LAB L100.1300 12.0-15.0 g/dl Normal HGB 13.2 LAB L100.1400 37-47 % Normal HCT 41.0 LAB L100.1500 81-99 fL Normal MCV 86.5 LAB L100.1600 27.0-32.0 pg Normal MCH 27.8 LAB L100.1700 32-36 g/gl Normal MCHC 32.2 LAB L100.1810 11.6-14.6 % High RDW CV 15.2 LAB L100.1820 35.1-43.9 fl High RDW SD 48.3 LAB L100.1900 150-450 K/mm3 Normal PLT 258 LAB L100.2000 6.2-12.0 fl Normal MPV 10.3 Performed By: #### L100.0500 #### [facility] [address] [place], [place], [address] VITAMIN D,25 HYDROXY Collected: 09/26/2017 Status: F Source: [place] 11:38 AM [facility] [place] [facility] TYPE CODE TESTS RESULT OUT OF RANGE REFERENCE UNITS LAB L506.1000 29.95-100.01 ng/mL Normal Vitamin D 38.5 25-OH Result Comment: Vitamin D 25(OH) Status Range Deficiency <20 ng/mL (50nmol/L) Insuffciency 20 - 30 ng/mL (50 - 75 nmol/L) Sufficiency 30 - 100 ng/mL (75 - 250 nmol/L) Toxicity >100 ng/mL (>250 nmol/L) Performed By: #### L506.1000 #### [facility] [address] [place], [address] PROTEIN+CREATININE Collected: Status: F Source: [place] RATIO,URINE 09/26/2017 11:38 AM [facility] [place] [facility] TYPE CODE TESTS RESULT OUT OF RANGE REFERENCE UNITS LAB L501.1200 NO RANGE EST. mg/dL Normal UR CREAT 128.00 LAB L501.1930 <11.9 mg/dL High 318.3 PROTEIN,UR.R AN. LAB L501.1940 0-200 mg/g CRE High PROT:CRE 2487 RATIO Performed By: #### L501.0900 #### [facility] [address] [place], [address] RENAL PROFILE Collected: 09/26/2017 Status: F Source: [place] 11:38 AM [facility] [place] [facility] TYPE CODE TESTS RESULT OUT OF RANGE REFERENCE UNITS LAB L501.0100 74-106 mg/dL High GLU 130 Result Comment: Fasting Glucose result greater than or equal to 126 mg/dL suggests DIABETES MELLITUS per A.D.A. criteria. Please note revised GLUCOSE reference range effective 2017. LAB L501.1000 7-18 mg/dL Normal BUN 14 LAB L501.1100 0.55-1.02 mg/dL High CREAT,SERUM 1.07 Result Comment: The validity of the calculated GFR AND GFRAA in patients over 70 years has not been determined. Clinical correlation is essential. LAB L501.1110 >60 mL/min Low EST GFR 58 Result Comment: Non- GFR Calc LAB L501.1115 >60 mL/min Normal EST GFR - AA 70 Result Comment: GFR Calc LAB L501.1300 10-20 RATIO Normal BUN/CRE 13.1 LAB L501.1800 3.2-5.0 g/dL Low ALB 2.8 LAB L501.2200 8.5-10.1 mg/dL CA Normal 8.9 LAB L501.2300 2.5-4.9 mg/dL Normal PHOS 3.5 LAB L501.5300 136-145 mmol/L NA Normal 139 LAB L501.5600 3.5-5.1 mmol/L K Normal 3.9 LAB L501.5900 98-107 mmol/L High CL 108 LAB L501.6100 21.0-32.0 mmol/L Normal CO2 24.0 Performed By: #### L500.3600 #### [facility] [address] [place], [address] PTHIN Collected: 09/26/2017 Status: F Source: [place] 11:38 AM [facility] [place] [facility] TYPE CODE TESTS RESULT OUT OF RANGE REFERENCE UNITS LAB L509.1000 18.4-80.1 pg/mL Normal PTHIN 32.3 Performed By: #### L509.1000 #### [facility] [address] [place], [address] COMPREHENSIVE METABOLIC Collected: 09/24/2017 Status: F Source: [place] PROFIL 4:35 PM [facility] [place] [facility] TYPE CODE TESTS RESULT OUT OF RANGE REFERENCE UNITS LAB L501.0100 74-106 mg/dL High GLU 146 Result Comment: Fasting Glucose result greater than or equal to 126 mg/dL suggests DIABETES MELLITUS per A.D.A. criteria. Please note revised GLUCOSE reference range effective 2017. LAB L501.1000 7-18 mg/dL Normal BUN 16 LAB L501.1100 0.55-1.02 mg/dL High CREAT,SERUM 1.12 Result Comment: The validity of the calculated GFR AND GFRAA in patients over 70 years has not been determined. Clinical correlation is essential. LAB L501.1110 >60 mL/min Low EST GFR 55 Result Comment: Non- GFR Calc LAB L501.1115 >60 mL/min Normal EST GFR - AA 67 Result Comment: GFR Calc LAB L501.1300 10-20 RATIO Normal BUN/CRE 14.3 LAB L501.1500 6.4-8.2 g/dL T Normal PROT 7.7 LAB L501.1800 3.2-5.0 g/dL Low ALB 2.9 LAB L501.1950 2.2-4.2 g/dL High GLOB 4.8 LAB L501.2000 0.9-2.4 RATIO Low A/G 0.6 LAB L501.2200 8.5-10.1 mg/dL CA Normal 8.7 LAB L501.4100 15-37 U/L Normal AST 33 LAB L501.4305 45-117 U/L Normal ALK P 78 LAB L501.4405 13-56 U/L Normal ALT 42 LAB L501.4600 0.20-1.00 mg/dL T Normal BILI 0.30 LAB L501.5300 136-145 mmol/L NA Normal 142 LAB L501.5600 3.5-5.1 mmol/L K Normal 3.6 LAB L501.5900 98-107 mmol/L CL Normal 107 LAB L501.6100 21.0-32.0 mmol/L Normal CO2 26.0 LAB L501.6200 5-15 Normal GAP 9 Performed By: #### L500.4050 #### [facility] [address] [place], [address] OPERATIVE REPORT Observed: 07/07/2017 Status: F Source: [place] 11:26 AM [facility] [place] [facility] Medical Records Department [address] [place] [address] Operative Report 07/07/17 1122 MR#: [id number] Acct: [id number] Name: JANIS PETERS Rep #: [id number] : 1970 47 From: Harry Gagnon MD PCP: Naomi Colunga DO Status: [facility] Y Location: [place] [address] Problem List (1) DDD (degenerative disc disease), lumbosacral Status: Chronic (2) Radiculopathy of lumbosacral region Status: Chronic [...] physician fluoroscopy on the lateral view the caudal space was identified the skin and subcutaneous tissue were anesthetized approximately 3 cc of 1% lidocaine using a 25-gauge regular needle under direct visualization with fluoroscopy on the lateral view using a 22-gauge 3-1/2 inch spinal needle the needle was advanced via the skin through the sacral hiatus tip of the needle passed through the sacrococcygeal ligament advanced approximately S4 area after negative aspiration for blood or CSF a [...] procedure was completed without any apparent difficult, any complication. The patient appeared to tolerate well. ASSESSMENT AND PLAN: This is a 47-year-old female with lumbosacral radiculopathy, lumbosacral degenerative disc disease, lumbosacral spinal stenosis status post caudal epidural steroid injection. The patient will continue his current medications. The patient will follow in approximately 2 weeks for possible repeat of the procedure if indicated. 07/07/17 1126 <Electronically signed by Harry Gagnon MD> Date Harry Gagnon MD CC: Harry Gagnon; Naomi Colunga DO Signed BEDSIDE GLUCOSE Collected: 07/07/2017 Status: F Source: [place] 9:31 AM [facility] [place] [facility] TYPE CODE TESTS RESULT OUT OF REFERENCE UNITS RANGE LAB L501.080 70-110 mg/dL High BEDSIDE GLU 133 Result Comment: MANAGEMENT OF PATIENT CARE PER NURSING PROTOCOL Performed By: #### L501.080 #### [facility] Point of Care [facility] [place] [address] FLUOR GUIDANCE FOR Observed: 07/07/2017 Status: F Source: [place] SPINE INJ 4:58 AM [facility] [place] [facility] [place] [address] Fluor Guidance for Spine Inj MR#: [id number] Acct: [id number] Name: JANIS PETERS Rep #: [id number] : 1970 F 47 From: Fabrizio Meade MD PCP: Naomi Colunga DO Status: [facility] Study: Fluor Guidance for Spine Inj Date of Exam: 07/07/17 Exam# [id number] Ordering Dr: Harry Gagnon MD CLINICAL HISTORY: Female, 47 years old. Lower back pain PROCEDURE: EPIDUROGRAM - Caudal block FLUOROSCOPY TIME (if supplied): (0:27) minutes. 2 Images. RADIATION DOSAGE (If Supplied By Facility): CTDIvol = ( ) mGy, DLP = ( ) mGycm TECHNIQUE: Successful lumbar epidural steroid injection under fluoroscopic guidance. RAD/Fluor Guidance for Spine Inj IMPRESSION: Successful lumbar epidural steroid injection under fluoroscopic guidance. Electronically Signed: Fabrizio Meade MD at 7:19 EDT Tel , Service support , CC: Harry Gagnon; Naomi Colunga DO Training And Development Manager: Signed HEPATIC PANEL Collected: 06/26/2017 Status: F Source: [facility] 4:31 PM [facility] REPOSITORY TYPE CODE TESTS RESULT OUT OF REFERENCE UNITS RANGE LAB ALB(LOINC) 3.4-5.0 g/dL Low Albumin Blood 2.7 LAB ALT(LOINC) 12-78 U/L ALT-SGPT Blood 39 LAB ALKP(LOINC 46-116 U/L ) Alk Phosphatase 69 LAB TP(LOINC) 6.4-8.2 g/dL Low Total Protein 5.9 LAB AST(LOINC) 9-37 U/L AST-SGOT Blood 26 LAB BILIT(LOIN 0.2-1.0 mg/dL C) Total Bilirubin 0.2 LAB DBIL(LOINC 0.00-0.20 mg/dL ) Direct Bilirubin 0.07 Performed By: #### HEPAP #### [facility] [address] [place], [place] [address] PROGRESS Observed: 06/26/2017 Status: COMPLETED Source: [place] 3:53 PM CL[facility]IC OTHER CAMPUS REPOSITORY HNO ID: [id number] Author: Harry Medina Service: (none) Author Type: Physician Type: Progress Notes Filed: 06/26/2017 4:12 PM Note Text: HPI: Janis Peters is a 46 year old female who presents for Consult (Biliary duct stenosis ). Pt just had EGD and colonoscopy in [place], reports reviewed including path. Pt has a lot of reflux, bloating, and epig. Takes Omeprazole 40 mg daily to bid. Pt had a umair done in 2011 and then had a bile leak and had an ERCP after that, told she had luisana stenosis. No change in b habits, but has IBS. Has blood from hemorrhoids per hx. No recent labs, imaging. Current Outpatient Prescriptions: hydrocortisone (ANUSOL-HC) 2.5 % rectal cream 1 application by RECTAL route twice daily. cholestyramine low-calorie (PREVALITE) 4 gram packet Take 1 Packet by mouth twice daily. levothyroxine (SYNTHROID) 50 mcg tablet Take 1 tablet by mouth once daily. CARTIA XT 120 mg 24 hr capsule Take 1 tablet by mouth twice daily. imipramine HCl (TOFRANIL) 50 mg tablet Take 1 tablet by mouth once daily. loratadine 10 mg cap Take 10 mg by mouth once daily. potassium chloride ER (K-DUR, KLOR-CON) 20 mEq tablet Take 20 mEq by mouth twice daily. Albuterol Sulfate 1.25 mg/3 mL nebulizer solution Use 1 Ampule via nebulizer every 6 hours as needed. cyclobenzaprine (FLEXERIL) 10 mg tablet Take 10 mg by mouth twice daily. linagliptin (TRADJENTA) 5 mg tab Take 1 tablet by mouth once daily. HYDROcodone-acetaminophen (NORCO) 5-325 mg per tablet Take 1 tablet by mouth twice daily as needed. DULoxetine (CYMBALTA) 30 mg capsule Take 60 mg by mouth once daily. diclofenac sodium (VOLTAREN) 1 % topical gel Apply to affected area as needed. SPIRIVA WITH HANDIHALER 18 mcg inhalation capsule Inhale 18 mcg as instructed once daily. albuterol HFA (PROVENTIL HFA, VENTOLIN HFA) 90 mcg/actuation inhaler Inhale 2 Puffs as instructed. chlorthalidone (HYGROTON) 25 mg tablet Take 25 mg by mouth every other day. topiramate (TOPAMAX) 100 mg tablet Take 300 mg by mouth once daily. rOPINIRole Hydrochloride 3 mg tablet Take 3 mg by mouth once daily. Omeprazole 40 mg capsule Take 40 mg by mouth once daily. losartan (COZAAR) 100 mg tablet Take 200 mg by mouth once daily. aspirin, enteric coated (ASPIRIN, ENTERIC COATED) 81 mg EC tablet Take 81 mg by mouth once daily. CALCIUM CARBONATE/VITAMIN D3 (VITAMIN D-3 ORAL) Take 6,000 Units by mouth once daily. Magnesium 250 mg tab Take 250 mg by mouth twice daily. multivitamin tablet Take 1 tablet by mouth once daily. No current facility-administered medications for this visit. PAST MEDICAL HISTORY Diagnosis Date - CTS (carpal tunnel syndrome) - Diabetes (HCC) - Fibromyalgia - Gastritis - GERD (gastroesophageal reflux disease) - Hypertension - IBS (irritable bowel syndrome) - Irregular heart beat - Kidney failure - Migraine - Neuropathy (HCC) - Osteoarthritis - Pulmonary hypertension - Sciatica PAST SURGICAL HISTORY Procedure Laterality Date - BACK SURGERY HX 2007 plate and 4 screws - BLADDER SURGERY HX 1998 - CARPAL TUNNEL Right 1999 - CHOLECYSTECTOMY HX 2011 - COLONOS W/REM POLYP SNARE 1983 - COLONOSCOPY 05/21/2017 polyp, repeat in 5 yrs - EGD 05/21/2017 gastritis and esophagitis - FISSURE;SPHINCTEROTOMY/ANAL 1994 - HYSTERECTOMY HX 1998 both ovaries present - INJECTION 1999-ongoing back injections - LAMINECTOMY,CERVICAL 2004 - PLACEMENT, BILE DUCT STENT 2011 - TUBAL LIGATION 1993 FAMILY HISTORY Problem Relation Age of Onset - Cancer Father bladder Social History Marital status: Spouse name: Years of education: Number of children: Social History Main Topics Smoking status: Current Every Day Smoker Packs/day: 2.00 Years: 0.00 Types: Cigarettes Start date: 05/20/1983 Smokeless status: Never Used Comment: down to 0.5 ppd currently - (05/20/17) Alcohol use: No Comment: occ Drug use: No ALLERGIES Allergen Reactions - Ciprofloxacin Itching REVIEW OF SYSTEMS GENERAL: No weight loss, malaise or fevers. HEENT: Negative for frequent or significant headaches, No changes in hearing or vision, no nose bleeds or other nasal problems. NECK: Negative for lumps, goiter, pain and significant neck swelling. RESPIRATORY: Negative for cough, hemoptysis, wheezing or shortness of breath CARDIOVASCULAR: Negative for chest pain, leg swelling or palpitations GI: See HPI : No history of dysuria, frequency or incontinence MUSCULOSKELETAL: Negative for joint pain or swelling, back pain or muscle pain. SKIN: Negative for lesions, rash, and itching PSYCH: Negative for sleep disturbance, mood disorder and recent psychosocial stressors NEURO: No history of headaches, syncope, paralysis, seizures or tremors PHYSICAL EXAMINATION: BP 140/90 Pulse 104 Ht 5' 4 (1.63m) Wt 342 lb (155.1kg) BMI 58.68 kg/(m2). GENERAL APPEARANCE: Well appearing, alert, in no acute distress, well-hydrated, well nourished.. SKIN: Skin color, texture, turgor normal, no suspicious rashes or lesions. EYES: Anicteric sclera. Pupils are equally round and reactive to light. Extraocular movements are intact. . NECK: Supple, no adenopathy; thyroid symmetric, normal size, no bruits. LUNGS: Lungs clear to auscultation. No wheezing, rhonchi, rales. HEART: RRR without murmur, gallop, or rubs. No ectopy. ABDOMEN: Normal, soft, non-tender, no masses or organomegaly. EXTREMITIES: No deformities, edema, skin discoloration, clubbing or cyanosis. NEUROLOGIC: Gait normal. Sensation and strength grossly intact.. ASSESSMENT AND PLAN: ASSESSMENT/PLAN: 1. Gastroesophageal reflux disease with esophagitis - ICD9: 530.11, ICD10: K21.0 (primary diagnosis) - Discussed lifestyle modifications including losing weight, limiting caffeine, no meals three hours before sleep and head of bed elevation. - wt loss 2. Epigastric pain - ICD9: 789.06, ICD10: R10.13 - US ABDOMEN COMPLETE - HEPATIC FUNCTION PNL 3. Bloating symptom - ICD9: 787.3, ICD10: R14.0 - Likely related to obesity to some extent. - US ABDOMEN COMPLETE - HEPATIC FUNCTION PNL 4. Morbid obesity (HCC) - ICD9: 278.01, ICD10: E66.01 - CONSULT TO GENERAL SURGERY Harry Medina MD CNOV Observed: 06/26/2017 Status: COMPLETED Source: [place] 2:45 PM CLINIC OTHER CAMPUS REPOSITORY Office Visit (AGGASTN) JANIS PETERS ([id number]) 1970 F Date Time Provider Department 06/26/17 2:45 PM HARRY MEDINA During your visit today, we recorded the following information about you: Pulse Blood pressure Weight Height 104/minute 140/90 155.1 kg 1.626 m [facility] 06/26/2017 3:22 PM Signed Pt had a colonoscopy and EGD 05/21/17 [facility] 06/26/2017 15:20:59 Harry Medina MD 06/26/2017 4:12 PM Signed HPI: Janis Peters is a 46 year old female who presents for Consult (Biliary duct stenosis ). Pt just had EGD and colonoscopy in [place], reports reviewed including path. Pt has a lot of reflux, bloating, and epig. Takes Omeprazole 40 mg daily to bid. Pt had a umair done in 2011 and then had a bile leak and had an ERCP after that, told she had luisana stenosis. No change in b habits, but has IBS. Has blood from hemorrhoids per hx. No recent labs, imaging. Current Outpatient Prescriptions: hydrocortisone (ANUSOL-HC) 2.5 % rectal cream 1 application by RECTAL route twice daily. cholestyramine low-calorie (PREVALITE) 4 gram packet Take 1 Packet by mouth twice daily. levothyroxine (SYNTHROID) 50 mcg tablet Take 1 tablet by mouth once daily. CARTIA XT 120 mg 24 hr capsule Take 1 tablet by mouth twice daily. imipramine HCl (TOFRANIL) 50 mg tablet Take 1 tablet by mouth once daily. loratadine 10 mg cap Take 10 mg by mouth once daily. potassium chloride ER (K-DUR, KLOR-CON) 20 mEq tablet Take 20 mEq by mouth twice daily. Albuterol Sulfate 1.25 mg/3 mL nebulizer solution Use 1 Ampule via nebulizer every 6 hours as needed. cyclobenzaprine (FLEXERIL) 10 mg tablet Take 10 mg by mouth twice daily. linagliptin (TRADJENTA) 5 mg tab Take 1 tablet by mouth once daily. HYDROcodone-acetaminophen (NORCO) 5-325 mg per tablet Take 1 tablet by mouth twice daily as needed. DULoxetine (CYMBALTA) 30 mg capsule Take 60 mg by mouth once daily. diclofenac sodium (VOLTAREN) 1 % topical gel Apply to affected area as needed. SPIRIVA WITH HANDIHALER 18 mcg inhalation capsule Inhale 18 mcg as instructed once daily. albuterol HFA (PROVENTIL HFA, VENTOLIN HFA) 90 mcg/actuation inhaler Inhale 2 Puffs as instructed. chlorthalidone (HYGROTON) 25 mg tablet Take 25 mg by mouth every other day. topiramate (TOPAMAX) 100 mg tablet Take 300 mg by mouth once daily. rOPINIRole Hydrochloride 3 mg tablet Take 3 mg by mouth once daily. Omeprazole 40 mg capsule Take 40 mg by mouth once daily. losartan (COZAAR) 100 mg tablet Take 200 mg by mouth once daily. aspirin, enteric coated (ASPIRIN, ENTERIC COATED) 81 mg EC tablet Take 81 mg by mouth once daily. CALCIUM CARBONATE/VITAMIN D3 (VITAMIN D-3 ORAL) Take 6,000 Units by mouth once daily. Magnesium 250 mg tab Take 250 mg by mouth twice daily. multivitamin tablet Take 1 tablet by mouth once daily. No current facility-administered medications for this visit. PAST MEDICAL HISTORY Diagnosis Date - CTS (carpal tunnel syndrome) - Diabetes (HCC) - Fibromyalgia - Gastritis - GERD (gastroesophageal reflux disease) - Hypertension - IBS (irritable bowel syndrome) - Irregular heart beat - Kidney failure - Migraine - Neuropathy (HCC) - Osteoarthritis - Pulmonary hypertension - Sciatica PAST SURGICAL HISTORY Procedure Laterality Date - BACK SURGERY HX 2007 plate and 4 screws - BLADDER SURGERY HX 1998 - CARPAL TUNNEL Right 1999 - CHOLECYSTECTOMY HX 2011 - COLONOS W/REM POLYP SNARE 1983 - COLONOSCOPY 05/21/2017 polyp, repeat in 5 yrs - EGD 05/21/2017 gastritis and esophagitis - FISSURE;SPHINCTEROTOMY/ANAL 1994 - HYSTERECTOMY HX 1998 both ovaries present - INJECTION 1999-ongoing back injections - LAMINECTOMY,CERVICAL 2003 - PLACEMENT, BILE DUCT STENT 2011 - TUBAL LIGATION 1993 FAMILY HISTORY Problem Relation Age of Onset - Cancer Father bladder Social History Marital status: Spouse name: Years of education: Number of children: Social History Main Topics Smoking status: Current Every Day Smoker Packs/day: 2.00 Years: 0.00 Types: Cigarettes Start date: 05/20/1983 Smokeless status: Never Used Comment: down to 0.5 ppd currently - (05/20/17) Alcohol use: No Comment: occ Drug use: No ALLERGIES Allergen Reactions - Ciprofloxacin Itching REVIEW OF SYSTEMS GENERAL: No weight loss, malaise or fevers. HEENT: Negative for frequent or significant headaches, No changes in hearing or vision, no nose bleeds or other nasal problems. NECK: Negative for lumps, goiter, pain and significant neck swelling. RESPIRATORY: Negative for cough, hemoptysis, wheezing or shortness of breath CARDIOVASCULAR: Negative for chest pain, leg swelling or palpitations GI: See HPI : No history of dysuria, frequency or incontinence MUSCULOSKELETAL: Negative for joint pain or swelling, back pain or muscle pain. SKIN: Negative for lesions, rash, and itching PSYCH: Negative for sleep disturbance, mood disorder and recent psychosocial stressors NEURO: No history of headaches, syncope, paralysis, seizures or tremors PHYSICAL EXAMINATION: BP 140/90 Pulse 104 Ht 5' 4ANDquot; (1.63m) Wt 342 lb (155.1kg) BMI 58.68 kg/(m2). GENERAL APPEARANCE: Well appearing, alert, in no acute distress, well-hydrated, well nourished.. SKIN: Skin color, texture, turgor normal, no suspicious rashes or lesions. EYES: Anicteric sclera. Pupils are equally round and reactive to light. Extraocular movements are intact. . NECK: Supple, no adenopathy; thyroid symmetric, normal size, no bruits. LUNGS: Lungs clear to auscultation. No wheezing, rhonchi, rales. HEART: RRR without murmur, gallop, or rubs. No ectopy. ABDOMEN: Normal, soft, non-tender, no masses or organomegaly. EXTREMITIES: No deformities, edema, skin discoloration, clubbing or cyanosis. NEUROLOGIC: Gait normal. Sensation and strength grossly intact.. ASSESSMENT AND PLAN: ASSESSMENT/PLAN: 1. Gastroesophageal reflux disease with esophagitis - ICD9: 530.11, ICD10: K21.0 (primary diagnosis) - Discussed lifestyle modifications including losing weight, limiting caffeine, no meals three hours before sleep and head of bed elevation. - wt loss 2. Epigastric pain - ICD9: 789.06, ICD10: R10.13 - US ABDOMEN COMPLETE - HEPATIC FUNCTION PNL 3. Bloating symptom - ICD9: 787.3, ICD10: R14.0 - Likely related to obesity to some extent. - US ABDOMEN COMPLETE - HEPATIC FUNCTION PNL 4. Morbid obesity (HCC) - ICD9: 278.01, ICD10: E66.01 - CONSULT TO GENERAL SURGERY Harry Medina MD Referring Provider: SHARDA WYLIE (EDGAR) [[id number]] Allergies As of Date: 06/26/2017 Noted Allergy Reaction CIPROFLOXACIN 09/14/2014 9 - Itching Date Reviewed: 06/26/2017 Reviewed by: Harry Medina - Fully Assessed Reason for Visit: Consult [173] Cmt: Biliary duct stenosis Reason For Visit History Recorded Primary Visit Diagnosis:Gastroesophageal reflux disease with esophagitis [K21.0] Other Visit Diagnoses:Epigastric pain [R10.13] Bloating symptom [R14.0] Morbid obesity (HCC) [E66.01] Order(s):US ABDOMEN COMPLETE [3863777] Order #: [id number] FUTURE HEPATIC FUNCTION PNL [SQHFP] Order #: [id number] FUTURE CONSULT TO GENERAL SURGERY [9011] Order #: [id number]: 1 Prescriptions as of 06/26/2017 Sig: HYDROCORTISONE 2.5 % TOPICAL * 1 application by RECTAL route* CHOLESTYRAMINE-ASPARTAME 4 GR* Take 1 Packet by mouth twice * LEVOTHYROXINE 50 MCG TABLET Take 1 tablet by mouth once d* CARTIA XT 120 MG CAPSULE,EXTE* Take 1 tablet by mouth twice * IMIPRAMINE 50 MG TABLET Take 1 tablet by mouth once d* LORATADINE 10 MG CAPSULE Take 10 mg by mouth once daysi* POTASSIUM CHLORIDE ER 20 MEQ * Take 20 mEq by mouth twice da* ALBUTEROL SULFATE 1.25 MG/3 M* Use 1 Ampule via nebulizer ev* CYCLOBENZAPRINE 10 MG TABLET Take 10 mg by mouth twice theresa* LINAGLIPTIN 5 MG TABLET Take 1 tablet by mouth once d* HYDROCODONE 5 MG-ACETAMINOPHE* Take 1 tablet by mouth twice * DULOXETINE 30 MG CAPSULE,SHANTELL* Take 60 mg by mouth once daysi* DICLOFENAC 1 % TOPICAL GEL Apply to affected area as ne* SPIRIVA WITH HANDIHALER 18 MC* Inhale 18 mcg as instructed o* ALBUTEROL SULFATE HFA 90 MCG/* Inhale 2 Puffs as instructed. CHLORTHALIDONE 25 MG TABLET Take 25 mg by mouth every oth* TOPIRAMATE 100 MG TABLET Take 300 mg by mouth once theresa* ROPINIROLE 3 MG TABLET Take 3 mg by mouth once daily* OMEPRAZOLE 40 MG CAPSULE,SHANTELL* Take 40 mg by mouth once daysi* LOSARTAN 100 MG TABLET Take 200 mg by mouth once theresa* ASPIRIN 81 MG TABLET,DELAYED * Take 81 mg by mouth once daysi* VITAMIN D-3 ORAL Take 6,000 Units by mouth onc* MAGNESIUM 250 MG TABLET Take 250 mg by mouth twice da* MULTIVITAMIN TABLET Take 1 tablet by mouth once d* Problem List As Of Date 06/26/2017 Noted Resolved Carpal tunnel syndrome of left wrist [G56.02] INVALID FOR* Chronic obstructive pulmonary disease, unspecif*INVALID FOR* Essential (primary) hypertension [I10] INVALID FOR* Gastro-esophageal reflux disease without esopha*INVALID FOR* Hyperlipidemia, unspecified [E78.5] INVALID FOR*05/20/2017 Irritable bowel syndrome without diarrhea [K58.*INVALID FOR* FPC (current) use of aspirin [Z79.82] INVALID FOR* Nicotine dependence, cigarettes, uncomplicated *INVALID FOR* Pain in right shoulder [M25.511] INVALID FOR* Type 2 diabetes mellitus with complication, wit*INVALID FOR* Paresthesia of skin [R20.2] INVALID FOR* Unspecified asthma, uncomplicated [J45.909] INVALID FOR* History of colon polyps [Z86.010] INVALID FOR* More... Belching [R14.2] INVALID FOR* More... Esophageal reflux [K21.9] INVALID FOR* More... Obesity, Class III, BMI >= 40 (morbid obesity) *INVALID FOR* Pulmonary hypertension [I27.20] IgA nephropathy [N02.8] Visit Notes: >> Billie Morse [facility] Jun 26, 2017 3:20 PM Status: Signed Pt had a colonoscopy and EGD 05/21/17 Billie Morse 06/26/2017 15:20:59 Level of Service: NEW PATIENT VISIT LEVEL 4 [81673] Disposition: Return in about 2 months (around 08/26/2017). Follow-up and Disposition History Recorded Encounter Status:Closed by HARRY MEDINA MD on 06/26/17 EMERGENCY DEPARTMENT Observed: 06/21/2017 Status: F Source: [place] SUMMARY 12:30 AM [facility] [place] [facility] Medical Records Department [address] [place] [address] Emergency Department Summary 06/20/17 1839 MR#: [id number] Acct: [id number] Name: JANIS PETERS Rep #: [id number] : 1970 46 From: Harry Cortez MD PCP: Naomi Colunga DO Status: REG ER - ER Visit Summary Date of Service: 06/20/17 Chief Complaint: Diarrhea History of Present Illness: The patient is a 46 F 3 of irritable bowel syndrome and zoe-toctedq-fqamwxuju diabetes along with renal insufficiency. Patient states that she has had diarrhea for a week. 10 or more episodes a day. Denies any blood or melena. She has had diarrhea before but she has had never like this. She denies any recent hospitalization. She has had no exposure to C. difficile nor she ever had that before. She denies any recent antibiotics or any recent travel. Physical Examination: Appearing middle-aged female. Vital signs are stable afebrile. She does not look septic or toxic. She is in no acute distress. H EENT exam dry mucous membranes otherwise unremarkable. Neck nontender lungs clear to auscultation bilaterally. Heart regular rhythm rate about 110 no murmur. Abdomen soft nontender nondistended no organomegaly or masses. Normal bowel sounds [...] stool culture could be sent for C. difficile. If her diarrhea continues this will need [...] be started on antibiotic for urinary tract infection. Disposition: Discharge Impression: Acute diarrhea of uncertain etiology Acute hypokalemia UTI with urine culture pending This note was generated with [employer] software. It may contain incorrect words, spelling, and punctuation that were not noted in review of the chart prior to signing ED Disposition - Plan for ED Patient: Chief Complaint: Diarrhea Referrals: Naomi Colunga DO [Primary Care Provider] - What to do if you have Problems For any increased pain, shortness of breath, bleeding, nausea or vomiting, chest pain, or any unexpected problems, contact your Primary Care Provider. Call [employer] [facility] ([phone]) or report to the closest Emergency Room. Call 911 if necessary. 06/21/17 0030 <Electronically signed by Harry Cortez MD> Date Harry Cortez MD Cosigner Signature (If Indicated): Date CC: Naomi Colunga DO DISCHARGE INSTRUCTION Observed: 06/21/2017 Status: F Source: [place] 12:30 AM [facility] [place] [facility] Medical Records Department [address] [place] [address] Discharge Instruction 06/20/17 2228 MR#: [id number] Acct: [id number] Name: JANIS PETERS Rep #: [id number] : 1970 46 From: Harry Cortez MD PCP: Naomi Colunga DO Status: REG ER ED Disposition - Plan for ED Patient: Disposition: Home or Assisted Living Chief Complaint: Diarrhea Instructions: Treating Diarrhea Prescriptions: Cephalexin [Keflex] 500 mg PO Q6 #30 cap Referrals: Naomi Colunga DO [Primary Care Provider] - 3-5 Days Additional Instructions: Plenty of fluids and rest. 10 mEq of potassium daily and have your potassium level rechecked next week. If continued diarrhea you need to follow-up your primary care physician and have a stool culture sent to ensure this is in a bacterial diarrhea infection [...] problems, contact your Primary Care Provider. Call [employer] [facility] ([phone]) or report to the closest Emergency Room. Call 911 if necessary. 06/21/17 0030 <Electronically signed by Harry Cortez MD> Date Harry Cortez MD Cosigner Signature (If Indicated): Date CC: Naomi Colunga DO CBC W/DIFF, AUTOMATED Collected: 06/20/2017 Status: F Source: [place] 6:00 PM [facility] [place] TYPE CODE TESTS RESULT OUT OF RANGE REFERENCE UNITS LAB L100.1000 4.4-11.0 K/mm3 High WBC 11.2 LAB L100.1200 4.2-5.4 M/mm3 Normal RBC 4.83 LAB L100.1300 12.0-15.0 g/dl Normal HGB 13.3 LAB L100.1400 37-47 % Normal HCT 41.3 LAB L100.1500 81-99 fL Normal MCV 85.5 LAB L100.1600 27.0-32.0 pg Normal MCH 27.5 LAB L100.1700 32-36 g/gl Normal MCHC 32.2 LAB L100.1810 11.6-14.6 % Normal RDW CV 14.3 LAB L100.1820 35.1-43.9 fl High RDW SD 44.6 LAB L100.1900 150-450 K/mm3 Normal PLT 294 LAB L100.2000 6.2-12.0 fl Normal MPV 10.6 LAB L100.2100 47-70 % Low NEUT% 46.5 LAB L100.2200 19-41 % High LY% 42.2 LAB L100.2300 0-10 % Normal MONO% 7.3 LAB L100.2400 0-5 % Normal EO% 2.6 LAB L100.2500 0-1 % High BASO% 1.2 LAB L100.2550 0.0-0.9 % Normal IM GRAN % 0.200 Result Comment: IG% - Immature Granulocytes (promyelocytes, myelocytes and metamyelocytes) > 1% indicates that a LEFT SHIFT is Present. LAB L100.2620 2.0-7.7 X10 3/uL Normal Absolute Neut 5.2 LAB L100.2720 0.83-4.51 X10 3/ul High Absolute Lymph 4.73 LAB L100.4500 Normal SMEAR COMMENT SCANNED Performed By: #### L100.0100 #### [facility] [address] [place], [place], [address] BASIC METABOLIC Collected: 06/20/2017 Status: F Source: [place] PROFILE ([facility]) 6:00 PM [facility] [place] TYPE CODE TESTS RESULT OUT OF RANGE REFERENCE UNITS LAB L501.0100 74-106 mg/dL High GLU 115 Result Comment: Fasting Glucose result from 100 to 125 mg/dL suggests IMPAIRED HOMEOSTASIS per A.D.A. criteria. Please note revised GLUCOSE reference range effective 2017. LAB L501.1000 7-18 mg/dL Normal BUN 15 LAB L501.1100 0.55-1.02 mg/dL High CREAT,SERUM 1.21 Result Comment: The validity of the calculated GFR AND GFRAA in patients over 70 years has not been determined. Clinical correlation is essential. LAB L501.1110 >60 mL/min Low EST GFR 51 Result Comment: Non- GFR Calc LAB L501.1115 >60 mL/min Normal EST GFR - AA 61 Result Comment: GFR Calc LAB L501.1255 ml/min Normal Estimated CRCL 49.63 LAB L501.1300 10-20 RATIO Normal BUN/CRE 12.4 LAB L501.2200 8.5-10 mg/dL Normal .1 CA 8.6 LAB L501.5300 136-14 mmol/L Normal 5 NA 142 Result Comment: Critical Result(s) Called at: 18:00:26 06/20/2017 by: Kenyon Christian to lshriner LAB L501.5600 3.5-5.1 mmol/L Low alert K 2.7 LAB L501.5900 98-107 mmol/L High CL 110 LAB L501.6100 21.0-32.0 mmol/L Normal CO2 22.0 LAB L501.6200 5-15 Normal GAP 10 Performed By: #### L500.2500 #### [facility] [address] [place], [place], [address] URINALYSIS, COMPLETE Collected: 06/20/2017 Status: F Source: [place] 6:00 PM [facility] [place] Order Comment: Order Date: 06/20/17 Has pt arrived? Y How was Urine Obtained? CLEAN CATCH TYPE CODE TESTS RESULT OUT OF RANGE REFERENCE UNITS LAB L400.3000 Yellow COLOR Normal Yellow LAB L400.3050 Clear Normal CLARITY Sl. Cloudy LAB L400.3200 Normal mg/dl Normal GLUCOSE, UR Normal LAB L400.3300 Negative mg/dL Normal BILIRUBIN URINE Negative LAB L400.3400 Negative mg/dl Normal KETONE UR Negative LAB L400.3465 1.002-1.030 Normal SP.GR. DIPSTX 1.015 LAB L400.3550 5.0 - 8.0 pH UR Normal 6.0 LAB L400.3600 Negative mg/dl High PROT DIPSTX 100 LAB L400.3700 Normal mg/dl Normal UROBILI Normal LAB L400.3750 Negative High NITRITE UR Positive LAB L400.3780 Negative /ul High OCCULT BLOOD-UR 150 LAB L400.3800 Negative /ul High LEUK ESTERASE 500 LAB L400.4050 0-5 /hpf WBC Normal 50-100 SEEN LAB L400.4100 0-5 /hpf Normal RBC-UA 0-5 SEEN LAB L400.4150 5-10 /hpf SQUAM Normal EPI 5-10 SEEN LAB L400.4300 None Seen /hpf 2+ Normal BACTERIA LAB L400.4350 <or=2+ /hpf 0 Normal MUCUS, URINE SEEN Performed By: #### L400.0001 #### [facility] [address] [place], [place], [id number] BASIC METABOLIC Collected: 06/03/2017 Status: F Source: [place] PROFILE ([place]) 11:04 AM [facility] [place] TYPE CODE TESTS RESULT OUT OF RANGE REFERENCE UNITS LAB L501.0100 74-106 mg/dL High GLU 153 Result Comment: Fasting Glucose result greater than or equal to 126 mg/dL suggests DIABETES MELLITUS per A.D.A. criteria. Please note revised GLUCOSE reference range effective 2017. LAB L501.1000 7-18 mg/dL Normal BUN 16 LAB L501.1100 0.55-1.02 mg/dL Normal CREAT,SERUM 0.97 Result Comment: The validity of the calculated GFR AND GFRAA in patients over 70 years has not been determined. Clinical correlation is essential. LAB L501.1110 >60 mL/min Normal EST GFR 65 Result Comment: Non- GFR Calc LAB L501.1115 >60 mL/min Normal EST GFR - AA 79 Result Comment: GFR Calc LAB L501.1300 10-20 RATIO Normal BUN/CRE 16.5 LAB L501.2200 8.5-10.1 mg/dL CA Normal 8.5 LAB L501.5300 136-145 mmol/L NA Normal 141 LAB L501.5600 3.5-5.1 mmol/L K Normal 3.6 LAB L501.5900 98-107 mmol/L CL Normal 107 LAB L501.6100 21.0-32.0 mmol/L Normal CO2 24.0 LAB L501.6200 5-15 Normal GAP 10 Performed By: #### L500.2500 #### [facility] [address] [place], [place], [address] MICROALB:CREAT Collected: 06/03/2017 Status: F Source: [place] RATIO,RANDOM UR 11:04 AM [facility] [place] TYPE CODE TESTS RESULT OUT OF RANGE REFERENCE UNITS LAB L501.1200 NO RANGE EST. mg/dL Normal UR CREAT 107.00 LAB L502.0500 NO RANGE EST. mg/L Normal 2150.0 MICROALBUMIN ,UR LAB L502.0600 <30 mg/g CRE mg/g CRE High 2009.4 MALB:CREAT Performed By: #### L502.0250 #### [facility] [place], [address] PROGRESS Observed: 05/29/2017 Status: COMPLETED Source: [place] 2:05 PM [facility] REPOSITORY HNO ID: [id number] Author: Sharda Wylie (Pa) Service: (none) Author Type: Physician Prison Guard Supervisor Type: Progress Notes Filed: 05/29/2017 2:34 PM Note Text: FOLLOW UP VISIT - ENDOSCOPY NAME: Janis [facility] NO.: [id number] DATE OF SERVICE: 05/28/2017 : 1970 REFERRING PHYSICIAN: Naomi Colunga DO Janis is a patient I am following for history of multiple colon polyps, GERD and belching. Dr. Gonsalez performed upper and lower endoscopy on 05/21/17. The patient was found to have gastritis, non-severe reflux esophagitis and a rectal polyp which was removed. Pathology demonstrated: FINAL DIAGNOSIS 1. Stomach, antrum, biopsy (A) - Gastric antral-type mucosa with no diagnostic abnormality. 2. Esophagogastric junction, biopsy (B) - Gastric cardia-type mucosa with mild chronic inflammation, negative for intestinal metaplasia or dysplasia. 3. Mid esophagus, biopsy (C) - Squamous mucosa with no diagnostic abnormality. 4. Rectal polyp, biopsy (D) - Tubular adenoma. SHAQ/raffi 05/22/2017 COMMENT 1. No Helicobacter pylori organisms are identified. The patient notes she is having increasing abdominal symptoms since the time of endoscopy. She particularly notes even more frequent belching, as well as nausea and a few episodes of emesis. Patient is concerned as noted she had to have biliary duct stent placed in the past for stenosis and this feels like the symptoms she had back at that time. We do not currently have access to these records for review. Patient states the stenosis was discovered after her gallbladder surgery. She states when she had the stent removed she was told the problem could recur in the future. Patient also notes that she has had loose stools ever since gallbladder surgery and wonders what she can do for this. Has not been on questran in the past. She notes the frequent loose stools are causing her hemorrhoids to flare up. She denies any fever or chills. VITALS: There were no vitals taken for this visit. General: patient is alert, cooperative, in no acute distress. +frequent belching On examination, the abdomen is benign. Assessment IMPRESSION: tubular adenoma, gastritis and esophagitis. Chronic diarrhea s/p cholecystectomy. Belching, nausea and upper abdominal discomfort, history of CBD stenosis per patient-recommend GI evaluatopm PLAN: -If the patient notes any problems or changes in bowel function, the patient should contact me immediately. Otherwise I recommend follow up endoscopy in 5 years. -Trial of cholestyramine for chronic diarrhea following cholecystectomy -Continue PPI and add carafate -Recommend GI evaluation d/t history of biliary ductal stenosis to r/o recurrence of this as patient notes similar symptoms to past episode. Referral information forwarded to medical affairs specialist to arrange Patient verbalized understanding of all above and agreed with the plan. Diagnoses: (R19.7) Diarrhea, unspecified type (primary encounter diagnosis) (Z90.49) S/P cholecystectomy (D36.9) Tubular adenoma (K62.5) Bright red rectal bleeding (K64.9) Hemorrhoids, unspecified hemorrhoid type (K29.30) Chronic superficial gastritis without bleeding Return to Clinic: The patient is instructed to follow- up with me in 2 weeks with progress report I spent 30 minutes in the visit, with more than 50% of the total yvqu-gu-xnxd time of the visit in counseling / coordination of care. Sharda Wylie PA-C PULMONARY VISIT REPORT Observed: 05/29/2017 Status: F Source: [place] 1:47 PM [facility] [place] [facility] [address] [place] [address] OFFICE VISIT Date of Service: 05/29/17 MR#: [id number] Acct: [id number] Name: JANIS PETERS Rep #: [id number] : 1970 Provider: [place] Brenner Age/Sex: 46/F [place] [facility] Status: Signed Assessment AND Plan 1. Pulmonary hypertension I27.20 Status Chronic Plan Possibly worsened. Need to repeat pulmonary stress test to eval for possible exertional hypoxia given worsening shortness of breath. Consider repeating Echo. F/U with Dr Gonsalez in 2 months. 2. WATTS (dyspnea on exertion) R06.09 Status Chronic Plan Deteriorated. Repeat pulmonary stress test, follow up with [facility] 2 months. Plan for supplemental opxygen if indicated. Orders Orders: 3. NOY (obstructive sleep apnea) G47.33 Status Chronic Plan Deteriorated. Patient continues non-compliance. Lengthy discussion of the co-morbid effects of non-compliance. She became tearful. Plan to follow up on needed dental work this week. Plans to utilize CPAP as soon as possible. F/U DMB in 2 months to continue to monitor. 4. Stage 1 mild COPD by GOLD classification J44.9 Status Chronic Plan Possibly worse, need PFT to evaluate disease progression. Currently only on rescue inhaler. May require step up in therapy. F/U with [facility] in 2 months, hold of on inhaler changes until tests can be reviewed. 5. Continuous tobacco abuse Z72.0 Status Chronic Plan 11 minute discussion regarding smoking cessation. Patient admits biggest trigger for her is riding in the car. Plan to utilize e-cig to stop smoking. She has a large amount of loose tobacco currently. Plan to use the tubes she currently has and give the rest of her tobacco to her friend. No one in her family smokes, therefore they are very supportive of her smoking cessation. Plan Detail Follow Up 2 Months ([facility]) HPI fu: Chief Complaint: Shortness of breath HPI Comments Details: This Patient presents the office today for routine follow-up on her obstructive sleep apnea, pulmonary hypertension and mild COPD. [...] inhaler 1-2 times daily. Is not very effective in relieving her shortness of breath. She [...] feels as though the dyspnea has worsened. She denies any chest pain or palpitations. She continues to smoke one half pack per day. Unfortunately, she reports that she has been noncompliant with her CPAP. She states that it is because she requires dental surgery. This was the same report that she provided at her last office visit. Last echo was completed on September 15, 2016 showing EF of 65% and an RVSP of 35 mmHg. Last pulmonary function test was completed on October 17, 2016 showed an FEV1 of 81% of predicted. Last pulmonary stress test was completed on October 04, 2016, the patient was able to ambulate 390 feet, did not become dizzy. She was not hypoxic at any point during the test, does not require oxygen. She did experience tachycardia with the high heart rate of 144 bpm. Intake Vital Signs05/29/17 Height 5 ft 4 in 05/29/17 Weight: 338 lb Intake Visit Reasons: [facility] Vendor: Genniusangelika Accompanied by: Self Allergies amlodipine Allergy (Verified 05/29/17 12:26) severe edema atenolol Allergy (Verified 05/29/17 12:26) Swelling ciprofloxacin [From Cipro] Allergy (Verified 05/29/17 12:26) Itching ciprofloxacin HCl [From Cipro] Allergy (Verified 05/29/17 12:26) Itching estradiol [From Estrace] Allergy (Verified 05/29/17 12:26) Swelling meloxicam Allergy (Verified 05/29/17 12:26) Itching niacin Allergy (Verified 05/29/17 12:26) Itching Medications Albuterol Aerosols [Ventolin Aerosols] 2.5 mg INHALATION Q4H PRN PRN 05/03/15 [History Confirmed 05/29/17] Albuterol IH (ProAir) [Proair Hfa] 2 puff INHALATION Q4H PRN PRN 05/03/15 [History Confirmed 05/29/17] Linagliptin [Tradjenta] 5 mg PO DAILY 05/03/15 [History Confirmed 05/29/17] Losartan Potassium [Cozaar] 100 mg PO BID 05/03/15 [History Confirmed 05/29/17] Omeprazole [Prilosec] 40 mg PO BID 05/03/15 [History Confirmed 05/29/17] Topiramate [Topamax] 100 mg PO TID 05/03/15 [History Confirmed 05/29/17] Imipramine HCl [Tofranil] 50 mg PO QHS 05/07/16 [History Confirmed 05/29/17] Potassium Chloride [Klor-Con] 20 meq PO BID 05/07/16 [History Confirmed 05/29/17] Cholecalciferol (Vitamin D3) [Vitamin D3] 6,000 unit PO DAILY 08/31/16 [History Confirmed 05/29/17] Levothyroxine [Synthroid] 50 mcg PO DAILY 08/31/16 [History Confirmed 05/29/17] Loratadine [Claritin] 10 mg PO DAILY 08/31/16 [History Confirmed 05/29/17] Multivits,Ca,Minerals/Iron/FA [Women's Daily Formula Caplet] 1 tab PO DAILY 08/31/16 [History Confirmed 05/29/17] Tiotropium [place] [Spiriva 18 MCG] 1 puff INHALATION DAILY #1 inhaler 09/01/16 [Rx Confirmed 05/29/17] Aspirin [Aspir-Low] 81 mg PO DAILY 09/17/16 [History Confirmed 05/29/17] Magnesium 250 mg PO BID 09/17/16 [History Confirmed 05/29/17] Chlorthalidone 25 mg PO QODAY 04/03/17 [History Confirmed 05/29/17] Cyclobenzaprine [Flexeril] 10 mg PO BID PRN PRN 04/03/17 [History Confirmed 05/29/17] Diclofenac Sodium [Voltaren] 1 applic TP BID 04/03/17 [History Confirmed 05/29/17] Diltiazem HCl [Diltiazem 12Hr ER] 120 mg PO QHS 04/03/17 [History Confirmed 05/29/17] Duloxetine HCl 60 mg PO QHS 04/03/17 [History Confirmed 05/29/17] Hydrocodone/Acetaminophen [Hydrocodone-Acetamin 5-325 mg] 1 tab PO BID 04/03/17 [History Confirmed 05/29/17] [facility] Medical History Continuous tobacco abuse (Chronic) WATTS (dyspnea on exertion) (Chronic) Obstructive sleep apnea (Chronic) Adult-onset obesity (Chronic) Pulmonary hypertension (Chronic) Stage 1 mild COPD by GOLD classification (Chronic) Social History Smoking Status: Current every day smoker second hand exposure: Yes alcohol intake: never substance use type: does not use caffeine: No what type of physical activity do you participate in: none Review of Systems Const CONSTITUTIONAL: Positive body ache, daytime sleepiness, sleeping in chair, fatigue and headache(s); negative anorexia, chills, fever(s), night sweats, oral thrush, stops breathing during sleep, weight loss, weight loss, weight gain, frequent colds, seasonal [...] chest congestion, cough, chest tightness, pain on inspiration, inhalers or other Gastro Gastrointestional: Negative bloody [...] nodes or other Exam Const Constitutional: Positive obese, conversant, cooperative, in no acute respiratory distress, well developed, well nourished and good hygiene Head Head: Positive normocephalic and atraumatic; negative cyanosis of lips/distal nose Eyes Eye: Positive clear conjunctiva and nystagmus; negative scleral abnormality Ears Ear: Positive hearing normal and external ears normal; negative hard of hearing Nose Nose: Positive external nose normal and no nasal discharge; negative epistaxis Mouth Mouth: Positive oral mucosae normal, no lesions, poor dentition and crowded posterior oropharynx; negative post nasal drip, malodorous breath or oral thrush present Mallampati Score: III: Mallampati Score Neck Neck: Positive normal visual inspection, full ROM, trachea midline, thick neck and female neck greater than 37 cm (15 in); negative lymphadenopathy, JVD or tender Chest Wall Chest: Positive normal inspection of the chest and symmetric chest movement; negative increased A/P diameter Resp lung sounds: Positive diminished, clear to auscultation, normal expiratory time and normal respiratory effort; negative wheezes, wheeze present on forced exhalation, dullness to percussion, rales or rhonchi Cardio Cardiac: Positive regular rate, regular rhythm, S1 normal and S2 normal; negative murmur GI GI: Positive normal to inspection and obese Genitourinary: Positive deferred Musc Musculoskeletal: Positive ROM normal and using an assistive device for ambulation; negative kyphosis or scoliosis Skin Pulmonary Skin Exam: Positive intact; negative rash, lesion, ulcers, erythema, scaly or dermal atrophy Pulses Pulse: Yes pulses normal x4 extremities Extremities Extremities: Yes edema Location: lower extremity location: Bilateral leg swelling: pitting pitting: +1, Yes capillary refill normal, No clubbing, No cyanosis, No stasis dermatitis Neuro Neurologic: Yes conversant, Yes no focal neuro deficits, Yes cooperative, Yes normal cognition, Yes normal coordination, Yes understands questions, Yes normal concentration Lymph Lymphatic: No lymphadenopathy, No tenderness, No cervical adenopathy, No axillary [...] Spent - greater than 10 minutes: Yes ([id number]) 05/29/17 1347 <Electronically signed by [place] ALMENDAREZC> Date [place] Brenner NP-C Cosigner Signature: Date (if applicable) CC: Naomi ESQUEDA POST Observed: 05/21/2017 Status: COMPLETED Source: [facility] 2:15 PM [facility] OTHER CAMPUS REPOSITORY HNO ID: [id number] Author: Sam Doan Service: Anesthesiology Author Type: Anesthesiologist Type: Anesthesia PostOp Filed: 05/21/2017 5:13 PM Note Text: POST ANESTHESIA EVALUATION NOTE SERVICE DATE: 05/21/2017 SERVICE TIME: 1399 : 1970 Vitals: 05/21/17 1216 05/21/17 1311 05/21/17 1409 Temp: 36.4 ?C (97.5 ?F) 36.2 ?C (97.2 ?F) 36.5 ?C (97.7 ?F) 05/21/17 1311 05/21/17 1315 05/21/17 1330 05/21/17 1409 BP: 130/83 119/64 152/70 128/80 05/21/17 1311 05/21/17 1315 05/21/17 1330 05/21/17 1409 Pulse: 95 92 98 90 05/21/17 1311 05/21/17 1315 05/21/17 1330 05/21/17 1409 Resp: 18 05/21/17 1311 05/21/17 1315 05/21/17 1330 05/21/17 1409 SpO2: 96% 95% 96% 97% Validated Vital Signs: YES No apparent anesthetic complications. The patient is appropriately hydrated with stable respiratory and cardiovascular status. Patient has safe and adequate airway control. The patient has appropriate pain relief and no significant post operative nausea or vomiting. The patient has achieved baseline mental status. Further assessment by Anesthesia Service: None Other Remarks: SIGNATURE: Sam Doan MD PATIENT NAME: Janis Peters DATE: May 21, 2017 TIME: 5:13 PM PAGER/CONTACT #: [phone] PT ED Observed: 05/21/2017 Status: COMPLETED Source: [facility] 2:13 PM [facility] REPOSITORY HNO ID: [id number] Author: Louise (Rn) LELIA Ocasio Service: (none) Author Type: Registered Nurse Type: Patient Education Filed: 05/21/2017 2:14 PM Note Text: POST OP LEARNING RESPONSE INSTRUCTION PROVIDED TO: Patient and family member METHOD OF INSTRUCTION: Teach Back . Individual instruction Written instruction - handouts Verbal instruction PATIENT / FAMILY RESPONSE: Verbalizes understanding of: MEDICATION PRESCRIBED-Accurate knowledge of prescribed medication prior to discharge PAIN MANAGEMENT-Effective strategies to manage pain in addition to pain medication POST-OPERATIVE INSTRUCTIONS-Correct actions to take to reduce postoperative complications FOLLOW-UP PLAN: Patient instructed to call with any further issues Follow-up with Primary Care SUPPLEMENTAL MATERIAL: None REFERRAL (RECOMMENDATION): None Electronically Signed By: Louise Ocasio RN, BSN In Department: [facility] ENDOSCOPY SURGICAL PATHOLOGY Observed: 05/21/2017 Status: F Source: [facility] 1:30 PM [facility] REPOSITORY Specimen originated from [facility] Specimen #: [id number] Submitting Physician: ZAK GONSALEZ MD FINAL DIAGNOSIS 1. Stomach, antrum, biopsy (A) - Gastric antral-type mucosa with no diagnostic abnormality. 2. Esophagogastric junction, biopsy (B) - Gastric cardia-type mucosa with mild chronic inflammation, negative for intestinal metaplasia or dysplasia. 3. Mid esophagus, biopsy (C) - Squamous mucosa with no diagnostic abnormality. 4. Rectal polyp, biopsy (D) - Tubular adenoma. JEL/rw 05/22/2017 COMMENT 1. No Helicobacter pylori organisms are identified. Flakita Nunez M.D. (Electronic Signature) SPECIMEN SUBMITTED A: GASTRIC ANTRAL, BIOPSY B: ESOPHAGOGASTRIC JUNCTION, BIOPSY C: MID ESOPHAGUS, BIOPSY D: RECTAL POLYP CLINICAL DATA R/O H PYLORI, R/O AUGUST'S, GERD, H/O COLON POLYPS LMP: NA GROSS DESCRIPTION A. Received in formalin is one piece of miranda, soft tissue measuring 0.2 x 0.2 x 0.2 cm. Totally submitted in one cassette. B. Received in formalin is one piece of miranda, soft tissue measuring 0.2 x 0.2 x 0.2 cm. Totally submitted in one cassette. C. Received in formalin is one piece of miranda, soft tissue measuring 0.2 x 0.1 x 0.1 cm. Totally submitted in one cassette. D. Received in formalin is one piece of miranda, soft tissue measuring 0.2 x 0.1 x 0.1 cm. Totally submitted in one cassette. Gross examination performed at [facility], [address] [place] [address] 05/21/2017 8:25:53 PM Date of Report: 05/22/2017 Date of Procedure: 05/21/2017 Date of Receipt: 05/21/2017 Submitted by: ZAK GONSALEZ MD Location: [facility] Diagnostic [place] [address]. Performed By: #### PATHS #### [place] [address] [phone] ANES PREOP Observed: 05/21/2017 Status: COMPLETED Source: [facility] 12:16 PM [facility] OTHER CAMPUS REPOSITORY HNO ID: [id number] Author: Curtis Gar Service: Anesthesiology Author Type: Anesthesiologist Type: Anesthesia PreOp Filed: 05/21/2017 12:16 PM Note Text: ANESTHESIOLOGY DAY OF SURGERY NOTE SERVICE DATE: 05/21/2017 SERVICE TIME: 12:16 PM : 1970 Procedure(s) (LRB): COLONOSCOPY (N/A) EGD (N/A) Surgeon(s): Zak Gonsalez Estimated body mass index is 56.64 kg/(m2) as calculated from the following: Height as of 05/20/17: 162.6 cm (5' 4). Weight as of 05/20/17: 149.7 kg (330 lb). Most recent hematocrit and potassium results: Hematocrit 39.0 12/10/2015 Potassium 3.6 12/10/2015 ANES DOS/PREOP NOTE: Vitals: There were no vitals filed for this visit. 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 Nicotine Dependence, Cigarettes, Uncomplicated Pain in Right Shoulder Type 2 Diabetes Mellitus With Complication, Without Long-Term Current Use of Insulin (Hcc) Paresthesia of Skin Unspecified Asthma, Uncomplicated History of Colon Polyps Belching Esophageal Reflux Obesity, Class III, BMI >= 40 (morbid obesity) E66.01 Pulmonary Hypertension Iga Nephropathy PAST MEDICAL HISTORY Diagnosis Date - CTS (carpal tunnel syndrome) - Diabetes (HCC) - Fibromyalgia - Gastritis - GERD (gastroesophageal reflux disease) - Hypertension - IBS (irritable bowel syndrome) - Irregular heart beat - Kidney failure - Migraine - Neuropathy (HCC) - Osteoarthritis - Pulmonary hypertension - Sciatica PAST SURGICAL HISTORY Procedure Laterality Date - BACK SURGERY HX 2007 plate and 4 screws - BLADDER SURGERY HX 1998 - CARPAL TUNNEL Right 1999 - CHOLECYSTECTOMY HX 2011 - COLONOS W/REM POLYP SNARE 1983 - FISSURE;SPHINCTEROTOMY/ANAL 1994 - HYSTERECTOMY HX 1998 both ovaries present - INJECTION 1999-ongoing back injections - LAMINECTOMY,CERVICAL 2003 - PLACEMENT, BILE DUCT STENT 2011 - TUBAL LIGATION 1993 FAMILY HISTORY Problem Relation Age of Onset - Cancer Father bladder Social History: Social History Substance Use Topics - Smoking status: Current Every Day Smoker Packs/day: 2.00 Types: Cigarettes Start date: 05/20/1983 - Smokeless tobacco: Never Used Comment: down to 0.5 ppd currently - (05/20/17) - Alcohol use No Comment: occ No current facility-administered medications on file prior to encounter. Current Outpatient Prescriptions on File Prior to Encounter: linagliptin (TRADJENTA) 5 mg tab Take 1 tablet by mouth once daily. diclofenac sodium (VOLTAREN) 1 % topical gel Apply to affected area as needed. SPIRIVA WITH HANDIHALER 18 mcg inhalation capsule Inhale 18 mcg as instructed once daily. albuterol HFA (PROVENTIL HFA, VENTOLIN HFA) 90 mcg/actuation inhaler Inhale 2 Puffs as instructed. topiramate (TOPAMAX) 100 mg tablet Take 300 mg by mouth once daily. rOPINIRole Hydrochloride 3 mg tablet Take 3 mg by mouth once daily. Omeprazole 40 mg capsule Take 40 mg by mouth once daily. aspirin, enteric coated (ASPIRIN, ENTERIC COATED) 81 mg EC tablet Take 81 mg by mouth once daily. CALCIUM CARBONATE/VITAMIN D3 (VITAMIN D-3 ORAL) Take 6,000 Units by mouth once daily. Magnesium 250 mg tab Take 250 mg by mouth twice daily. multivitamin tablet Take 1 tablet by mouth once daily. HYDROcodone-acetaminophen (NORCO) 5-325 mg per tablet Take 1 tablet by mouth twice daily as needed. DULoxetine (CYMBALTA) 30 mg capsule Take 60 mg by mouth once daily. chlorthalidone (HYGROTON) 25 mg tablet Take 25 mg by mouth every other day. hydrocortisone (ANUSOL-HC) 2.5 % rectal cream 1 application by RECTAL route twice daily. losartan (COZAAR) 100 mg tablet Take 200 mg by mouth once daily. Current Facility-Administered Medications: NaCl 0.9% iv infusion 30 mL/hr INTRAVENOUS CONTINUOUS Zak Gonsalez Allergies: ALLERGIES Allergen Reactions - Ciprofloxacin Itching DOS EXAM: Adequate NPO status: Yes Anesthetic risks, benefits, alternatives, personnel and consent discussed: Yes Patient agrees to proceed: Yes Previous Anesthesia: No history of adverse event. Airway Assessment: MP 2; Neck ROM: Full ROM without neurologic symptoms; Airway Evaluation: No significant abnormalities Symptoms of Sleep Apnea: Snoring Dentition: Teeth intact Additional Physical Exam: Lungs: Patient health status unchanged since recent history and physical. See history and physical for exam findings. Cardiac: Patient health status unchanged since recent history and physical. See history and physical for exam findings. Additional Pertinent Findings: N/A Blood Products: Not anticipated for this procedure. Anesthetic Plan: MAC with Sedation Pain Management Plan: Parenteral or Oral ASA Class: 3 Other Medical Problems: Asthma - Advised to continue same medication. COPD - Mild per PFTs. Spiriva daily. PRN Albuterol/Nebulizer. Uses maybe 2 x week. Diabetes - Well controlled on PO Rx. Last A1C - 6.2 (03/2017). HTN - Well controlled on Rx Morbid Obesity Body mass index is 56.64 kg/(m2). NOY - Patient is not able to use CPAP/BIPAP. 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 Pulmonary HTN - mild; 35 mmHg (11/2016) GERD on Rx Hypothyroidism on Rx Fatty liver disease Anxiety/Depression on Rx SOB/Dyspnea - difficult to dress self, shower on own. PONV Current smoker I have interviewed and examined the patient. I have reviewed the medical record and/or the pre-anesthesia evaluation, pertinent labs, and test results. Significant changes in the patient's condition since the History and Physical, not otherwise documented in primary service progress notes: No This contains updated information obtained within 48 hours of Surgery/Procedure. SIGNATURE: Curtis Gar MD PATIENT NAME: Janis Peters DATE: May 21, 2017 TIME: 12:16 PM CSN: [id number] NURSING PROG Observed: 05/20/2017 Status: COMPLETED Source: [facility] 5:05 PM [facility] OTHER [place] REPOSITORY HNO ID: [id number] Author: Mitchel (RnCari Hernandez RN Service: (none) Author Type: Registered Nurse Type: Nursing Progress Note Filed: 05/20/2017 5:06 PM Note Text: PACC Nurse Progress Note History AND Physical: PACC Visit Date: 05/20 Original HANDP Date: N/A ED visit Date: N/A Outside HANDP Scanned Date: N/A Labs Within Last 6 Months: N/A Imaging Within Last 12 Months: N/A Cardiac Testing: N/A Last Menstrual Period: LMP Date: Unknown Postmenopausal >1yr: No, S/P Hysterectomy: Yes BMI Percentile (PEDS): N/A Risk Assessment: N/A Anesthesia Review: N/A Narrative: N/A Pre-op Considerations: N/A Chart Check: COMPLETED Mitchel Hernandez RN May 20, 2017 5:05 PM HISTORY PHYSICAL Observed: 05/20/2017 Status: COMPLETED Source: [facility] 11:34 AM [facility] OTHER CAMPUS REPOSITORY HNO ID: [id number] Author: Mona Sawyer, CLINICAL INFORMATICS SPEC Service: (none) Author Type: Nurse Practitioner Type: HANDP Filed: 05/20/2017 1:12 PM Note Text: HISTORY AND PHYSICAL EXAMINATION SERVICE DATE: 05/20/2017 SERVICE TIME: 11:34 AM PRIMARY CARE PHYSICIAN: Naomi Colunga DO REASON FOR VISIT: Janis Peters is a 46 year old female who is scheduled for colonoscopy and EGD at the request of Dr. Zak Gonsalez for consultation. My final recommendation will be communicated back to the requesting physician by way of shared medical record or letter. The patient has the following: ACTIVE PROBLEM LIST Carpal Tunnel Syndrome of Left Wrist Chronic obstructive pulmonary disease, unspecified (HCC) Essential (Primary) Hypertension Gastro-Esophageal Reflux Disease Without Esophagitis Irritable Bowel Syndrome Without Diarrhea Detention (Current) Use of Aspirin Nicotine Dependence, Cigarettes, Uncomplicated Pain in Right Shoulder Type 2 Diabetes Mellitus With Complication, Without Long-Term Current Use of Insulin (Hcc) Paresthesia of Skin Unspecified Asthma, Uncomplicated History of Colon Polyps Belching Esophageal Reflux Obesity, Class III, BMI >= 40 (morbid obesity) E66.01 Pulmonary Hypertension Iga Nephropathy Subjective CHIEF COMPLAINT: Pre-Op Exam HPI: 46 year old female presents with history of colon polyps. Patient has a family history of colon polyps, but no family history of colon cancer. Patient is experiencing epigastric pain, which is different from her usual pain from reflux. Epigastric pain began to intensify today, but patient states this area, for the last year, has been tender to the touch. Epigastric pain feels like there is a knot and patient constantly feels bloated. Pain has been continuous. Has not found anything that relieves the pain. Putting pressure on the area aggravates the pain. Eating too much also causes the pain to intensify. Denies radiation of the pain. Occasional abdominal spasms of the LUQ. Over the last month, patient has been experiencing nausea and dry heaves. Patient experiences diarrhea and constipation, experiences diarrhea more frequently and bright red blood in the stools. Most days, patient reports blood. History of hemorrhoids and IBS. History of gastritis and GERD. Occasionally experiences difficulty swallowing - occurs with eating and sometimes with her own saliva. Previously had gall bladder removed. Patient has history of fatty liver disease. Last colonoscopy was in 2011. PAST MEDICAL HISTORY Diagnosis Date - CTS (carpal tunnel syndrome) - Diabetes (HCC) - Fibromyalgia - Gastritis - GERD (gastroesophageal reflux disease) - Hypertension - IBS (irritable bowel syndrome) - Irregular heart beat - Kidney failure - Migraine - Neuropathy (HCC) - Osteoarthritis - Pulmonary hypertension - Sciatica PAST SURGICAL HISTORY Procedure Laterality Date - BACK SURGERY HX 2007 plate and 4 screws - BLADDER SURGERY HX 1998 - CARPAL TUNNEL Right 1999 - CHOLECYSTECTOMY HX 2011 - COLONOS W/REM POLYP SNARE 1983 - FISSURE;SPHINCTEROTOMY/ANAL 1994 - HYSTERECTOMY HX 1998 both ovaries present - INJECTION 1999-ongoing back injections - LAMINECTOMY,CERVICAL 2003 - PLACEMENT, BILE DUCT STENT 2011 - TUBAL LIGATION 1993 FAMILY HISTORY Problem Relation Age of Onset - Cancer Father bladder SOCIAL HISTORY: Social History Marital status: Spouse name: Years of education: Number of children: Social History Main Topics Smoking status: Current Every Day Smoker Packs/day: 2.00 Years: 0.00 Types: Cigarettes Start date: 05/20/1983 Smokeless status: Never Used Comment: down to 0.5 ppd currently - (05/20/17) Alcohol use: No Comment: occ Drug use: No Prior to Admission medications as of 05/20/17 1211 Medication Sig Last Dose Taking levothyroxine (SYNTHROID) 50 mcg tablet Take 1 tablet by mouth once daily. Yes CARTIA XT 120 mg 24 hr capsule Take 1 tablet by mouth once daily. Yes imipramine HCl (TOFRANIL) 50 mg tablet Take 1 tablet by mouth once daily. Yes loratadine 10 mg cap Take 10 mg by mouth once daily. Yes potassium chloride ER (K-DUR, KLOR-CON) 20 mEq tablet Take 20 mEq by mouth twice daily. Yes Albuterol Sulfate 1.25 mg/3 mL nebulizer solution Use 1 Ampule via nebulizer every 6 hours as needed. Yes cyclobenzaprine (FLEXERIL) 10 mg tablet Take 10 mg by mouth twice daily. Yes linagliptin (TRADJENTA) 5 mg tab Take 1 tablet by mouth once daily. Yes HYDROcodone-acetaminophen (NORCO) 5-325 mg per tablet Take 1 tablet by mouth twice daily as needed. Yes DULoxetine (CYMBALTA) 30 mg capsule Take 60 mg by mouth once daily. Yes diclofenac sodium (VOLTAREN) 1 % topical gel Apply to affected area as needed. Yes SPIRIVA WITH HANDIHALER 18 mcg inhalation capsule Inhale 18 mcg as instructed once daily. Yes albuterol HFA (PROVENTIL HFA, VENTOLIN HFA) 90 mcg/actuation inhaler Inhale 2 Puffs as instructed. Yes chlorthalidone (HYGROTON) 25 mg tablet Take 25 mg by mouth every other day. Yes hydrocortisone (ANUSOL-HC) 2.5 % rectal cream 1 application by RECTAL route twice daily. Yes topiramate (TOPAMAX) 100 mg tablet Take 300 mg by mouth once daily. Yes rOPINIRole Hydrochloride 3 mg tablet Take 3 mg by mouth once daily. Yes Omeprazole 40 mg capsule Take 40 mg by mouth once daily. Yes losartan (COZAAR) 100 mg tablet Take 200 mg by mouth once daily. Yes aspirin, enteric coated (ASPIRIN, ENTERIC COATED) 81 mg EC tablet Take 81 mg by mouth once daily. Yes CALCIUM CARBONATE/VITAMIN D3 (VITAMIN D-3 ORAL) Take 6,000 Units by mouth once daily. Yes Magnesium 250 mg tab Take 250 mg by mouth twice daily. Yes multivitamin tablet Take 1 tablet by mouth once daily. Yes No medication comments found. ALLERGIES Allergen Reactions - Ciprofloxacin Itching REVIEW OF SYSTEMS: PAIN ASSESSMENT: Pain Pain Score: 3/10 Pain Location: (epigastric) Description: Aching Frequency: Continuous Intervention: Reposition;Relaxation General: No weight loss, malaise or fevers. Morbidly Obese. Neuro: Postive for -Migraines - controlled on daily Topamax. (+) Peripheral neuropathy - hands, legs, and feet. Legs r/t back issues and DM. Hands r/t carpal tunnel. Denies TIAs, strokes, or seizures. Respiratory: Positive for Asthma/COPD - Spiriva daily, albuterol inhaler PRN, albuterol nebulizer PRN. (+) SOB at with exertion; doing daily ADLs can be difficult. (+) Tobacco use - currently smoking 0.5 ppd; recently cut down from 2 ppd since 13 yo. (+) Dry cough. Denies recent bronchitis or pneumonia. Cardiovascular: Positive for: Hypertension - on Rx. (+) Palpitations - intermittently occurs. (+) Lightheadedness/dizziness - occurs when smoking. (+) Pulmonary HTN - mild on ECHO (2017). Denies CP, HLD, [place], DVT/PE, CAD or CHF. GI: See HPI. : Positive for incontinence - mixed; stress incontinence. Also is unaware when she has a urge to go at times. (+) Nocturia - up all the time at night. (+) H/O IgA nephropathy diagnosed by biopsy. States has been treated for the last year. Has normal kidney function. Denies recent UTIs. No hematuria, pain or burning with urination. Denies history of kidney stones. 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 : Hysterectomy in 1998 Endocrine: Diabetes Mellitus on oral agent. (+) Hypothyroidism on Rx. Hematology: Easy bruising / bleeding. Takes baby aspirin daily. Denies recent anemia or bleeding/clotting disorders. Oncology: No history of CA metastasis, chemo within 30 days, or radiotherapy within 90 days. Has not lost 10% of body wt in 6 months. No history of oncological symptoms or problems. Psych: Anxiety, Depression - well controlled on Rx. Musculoskeletal: Joint pain - generalized due to osteoarthritis. (+) Back pain. (+) Swelling of lower extremities - better controlled with Rx. Skin: Positive for - discoloration of BLE. States she was once told it was cellulitis. Did have vascular doctor look at legs long time ago. States needed nothing done. Has no hair growth present in that area. Denies current rashes or lesions. Objective PHYSICAL EXAM: VITALS: BP 132/88 Pulse 102 Temp (Src) 98.2 (Tympanic) Resp 16 Ht 5' 4 (1.63m) Wt 330 lb (149.7kg) SpO2 99% BMI 56.62 kg/(m2). General: Alert and oriented, No acute distress, Morbidly obese Skin: Hyperpigmentation BLE; redness present. No open lesions, rashes present HEENT: Pupils equal, round and reactive., No carotid bruits Cardiovascular: Normal S1 AND S2, no rubs, murmurs or gallops. No JVD. Pulse regular. Lungs: Normal breath sounds, no wheezes or crackles., No chest deformities or chest wall tenderness. Abdomen: Soft, non-tender, no rigidity., No masses or organomegaly., Positive bowel sounds Extremities: Vascular insufficiency findings - hyperpigmentation. No swelling present. Neurological: Normal cognition. In chair during exam. Ambulates with cane, wheel chair. Pulses: Carotid and radial pulses normal +2. Diagnostic tests reviewed for today's visit: Lab Value Units Date High Low HB No results within date range. HCT No results within date range. WBC No results within date range. PLT No results within date range. NA No results within date range. K No results within date range. GLUC No results within date range. BUN No results within date range. CREAT No results within date range. PTSEC No results within date range. INR No results within date range. APTT No results within date range. ALT No results within date range. AST No results within date range. TBILI No results within date range. TSH No results within date range. Lab Value Units Date High Low HCGQT No results within date range. UHCG No results within date range. HCG, BODY* No results within date range. Lab Value Units Date High Low ABORHD No results within date range. ABSCREEN No results within date range. No results found for: HBA1C Most recent labs Most recent imaging Most recent EKG Most recent Echo Most recent PFT's All in Care Everywhere Assessment ASSESSMENT Asthma - Advised to continue same medication. COPD - Mild per PFTs. Spiriva daily. PRN Albuterol/Nebulizer. Uses maybe 2 x week. Diabetes - Well controlled on PO Rx. Last A1C - 6.2 (03/2017). HTN - Well controlled on Rx Morbid Obesity Body mass index is 56.64 kg/(m2). NOY - Patient is not able to use CPAP/BIPAP. 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 Pulmonary HTN - mild; 35 mmHg (11/2016) GERD on Rx Hypothyroidism on Rx Fatty liver disease Anxiety/Depression on Rx SOB/Dyspnea - difficult to dress self, shower on own. PONV Current smoker METS: Do light work around the house, such as dusting or washing dishes (2.70 METs) Patient denies any chest pain or undue shortness of breath with the above physical activity. ASA Class: 3 ANESTHESIA FINDINGS: Intubation History: No history of difficult intubation Significant Anesthesia Considerations: Postop nausea/vomiting Airway Exam: General: Morbid obesity Mallampati Score is CLASS III ULBT: Class I - Lower incisors can bite the upper lip above the tati line Neck: Distance from hyoid to mentum during neck extension is at least 3 finger breaths, Limited movement extension, Short/Obese neck Mouth: Normal tongue size and Mouth opening greater than 2 finger breaths Dentition: Caps/crowns Airway History: No abnormal airway history STOP BANG Score: NOY does not use CPAP/BiPAP PLAN This patient is optimally prepared for surgery. CONSULTS: Patient does not require consults for optimization at this time. The Following Tests/Procedures Have Been Initiated: Labs not indicated per [facility] protocol, EKG not indicated per [facility] protocol Planned Anesthetic: MAC Instructions Given to Patient: Patient given verbal and written preop instructions and voices comprehension and compliance. SIGNATURE: Mona Sawyer CNP PATIENT NAME: Janis Peters DATE: May 20, 2017 TIME: 11:34 AM PAGER/CONTACT #: ALLERGIES ALLERGIES DATE TYPE / NAME / CODE REACTION SEVERITY SOURCE CODE 02/05/2018 Drug ciprofloxacin Itching Unknown [place] Allergy/41 HCl/[id number](RXNO [facility] 0168197([facility]) Repository 02/05/2018 Drug niacin/[id number](R Itching Unknown [place] Allergy/41 XNORM) [facility] 1379393([facility]) Repository 02/05/2018 Drug estradiol/[id number] Swelling Unknown [place] Allergy/41 5(RXNORM) [facility] 2766722([facility]) Repository 02/05/2018 Drug atenolol/[id number] Swelling Unknown [place] Allergy/41 (RXNORM) [facility] 4437354([facility]) Repository 02/05/2018 Drug ciprofloxacin/F0060 Itching Unknown [place] Allergy/41 99653(RXNORM) [facility] 7340253([facility]) Repository 02/05/2018 Drug amlodipine/M0822700 severe edema Unknown [place] Allergy/41 72(RXNORM) [facility] 7808021([facility]) Repository 02/05/2018 Drug meloxicam/Q62765360 Itching Unknown [place] Allergy/41 2(RXNORM) [facility] 3325841([facility]) Repository 12/29/2015 DRUG METOPROLOL SWELLING [facility] [place] 9118549([facility]) 09/14/2014 DRUG ATENOLOL SHORTNESS OF High [facility] [place] [facility] 09/14/2014 DRUG CIPROFLOXACIN ITCHING [facility] [place] 3416361([facility]) 09/14/2014 DRUG MELOXICAM HIVES [facility] [place] 7829884(SN Repository OMED CT) 09/14/2014 DRUG NIACIN GI UPSET [facility]/ Other [place] 4221107(SN Repository OMED CT) 09/14/2014 DRUG SIMVASTATIN SWELLING [facility]/41 Other [place] 6569549(SN Repository OMED CT) 07/16/2014 DRUG/25064 NUTRITIONAL RASH Low [facility] 1003(SNOME SUPPLEMENTS Other [place] D CT) Repository NG/2164483 ATENOLOL [facility] 06([facility]) Repository NG/4325683 CIPROFLOXACIN [facility] 06([facility]) Repository NG/8886727 MELOXICAM [facility] 06([facility]) Repository NG/7978413 METOPROLOL [facility] 06([facility]) Repository NG/0561053 NIACIN [facility] 06([facility]) Repository NG/7075647 SIMVASTATIN [facility] 06([facility]) Repository NG/8788606 NUTRITIONAL [facility] 06(SNOMED [facility]) Repository ENCOUNTERS ENCOUNTERS ADMIT/DISCHARGE ACCOUNT NUMBER ADMITTING ENCOUNTER LOCATION SOURCE CLASS 04/22/2018 [id number] Ambulatory Building:[facility] [place] Practices Repository 04/22/2018 [id number] [facility] ding: Repository 04/22/2018 [id number] Ambulatory BMSBuilding: [facility] Repository 04/16/2018 [id number] [facility] Repository 02/05/2018/02/06/20 [id number] Ambulatory BMSBuilding: [place] [facility] Repository 01/27/2018/03/02/20 [id number] Ambulatory [address] Main [place] Repository 01/27/2018/01/28/20 [id number] Ambulatory [address] Other [place] Repository 01/13/2018 [id number] [facility] ding:US Repository 01/13/2018 [id number] [facility] ding:US Repository 01/08/2018 [id number] Ambulatory BMSBuilding: [place] [facility] [place] 01/02/2018 [id number] Ambulatory [facility] Hospital ding:OPBI Repository 01/02/2018 [id number] Ambulatory BMSBuilding: [facility] Repository 01/01/2018 [id number] Ambulatory [facility] Hospital ding:PSN Repository 12/05/2017/12/06/19 [id number] Emergency [address] ding:ED Repository 12/02/2017 [id number] [facility] ding:LAB.FUT Repository URE 11/13/2017 [id number] Ambulatory BMSBuilding: [place] BMS.[facility] Hospital Repository 11/12/2017 [id number] [facility] ding:LAB.FUT Repository URE 10/20/2017/10/21/19 [id number] Emergency [address] ding:ED Repository 10/10/2017 [id number] [facility] ding:LAB.FUT Repository URE 10/07/2017 [id number] Ambulatory [facility] Hospital ding:PSN Repository 10/03/2017 [id number] Ambulatory [facility] Hospital ding:PSN Repository 10/03/2017 [id number] Ambulatory BMSBuilding: [place] [facility] Repository 09/26/2017 [id number] Ambulatory [facility] Hospital ding:LAB Repository 09/25/2017 [id number] Ambulatory [facility] Hospital ding:LAB.FUT Repository URE 09/24/2017 [id number] Ambulatory [facility] Hospital ding:LAB Repository 09/17/2017 [id number] Ambulatory BMSBuilding: [place] BMS.[facility] Hospital Repository 08/26/2017 [id number] Ambulatory [facility] MEDICAL Repository CENTERBuildi ng:AGGASTN 07/08/2017 [id number] Ambulatory [facility] MEDICAL Repository CENTERBuildi ng:AKUSS 07/07/2017/07/08/19 [id number] Ambulatory [address] ding:SDCRoom Repository : AC16 06/26/2017 [id number] Ambulatory [facility] Other [place] Repository 06/26/2017/06/27/19 [id number] Ambulatory [address] MEDICAL Repository CENTERBuildi ng:AKLBS 06/26/2017/06/27/19 [id number] Ambulatory [address] Other [place] Repository 06/26/2017/06/27/19 [id number] Ambulatory [address] MEDICAL Repository CENTERBuildi ng:AGGASTN 06/20/2017/06/22/19 [id number] Emergency [address] ding:ED Repository 06/03/2017 [id number] [facility] ding:LAB Repository 05/29/2017/05/29/19 [id number] Ambulatory BMSBuilding: [address] [place]ository 05/28/2017/05/30/19 [id number] Ambulatory [address] Repository 05/21/2017/05/21/19 [id number] [place], [address] Other [place] Repository 05/20/2017/05/20/19 [id number] Ambulatory [address] Repository FUNCTIONAL STATUS FUNCTIONAL STATUS No Functional Status Records FoundEQUIPMENT EQUIPMENT No Equipment Records FoundPAYERS PAYERS ENCOUNTER GUARANTOR PAYER SUBSCRIBER SOURCE 04/22/2018 Janis Smith Primary Jason OHIP [facility] Repository [id number] [facility] [id number] [facility] Route Number: [address] Angie Bang[place], [place] [id number] [place] [address]Ntt: [address]Xqb: (594) Date:0509-30-02Sjkm [phone] Name:BHAVYA Gant (HP) (HP)Tel: [phone], [place] [phone] (DV) [id number]: 04/22/2018 Secondary Jason OHIP Practices Insurance:Medical [facility] Repository [facility] [id number] Number: Bertha Hernandez, [id number] [place] [address]Gvo: Date: - 7205-21-26Zjum () Name:[facility] Alfreda [address] [place] [address] [id number]: 04/22/2018 JANIS Smith Primary JASON Crawford [id number] SR Insurance:MEDICAL WITMERDOB: [address] [id number] [facility] [address]Hed: (419) Number: Repository [phone] () [id number] Date:9060-60-13EV [address] [address]ED: 04/22/2018 Secondary NOT GIVENUNK [place] Insurance:SELF PAY [facility] Number: Effective Repository Date:2018-04-22 04/22/2018 JANIS Luis Primary JASON Carney Yvette PETERS337 SR Insurance:MEDICAL WITMERDOB: [address] [id number] Hospital [address]Tgi: (419) Number: Repository [phone] () [id number] Date:3481[place]67-[place] [address]01[address]WP: 04/22/2018 Secondary NOT GIVENUNK [place] Insurance:SELF PAY [facility] Number: Effective Repository Date:2018-04-22 04/16/2018 JANIS F Primary JASON Angelika Crawford [id number] SR Insurance:MEDICAL WITMERDOB: [address] [id number] [facility] [address]Cro: (419) Number: Repository [phone] () [id number] Date:6200-37-18ZA[address] [address]ZU: 04/16/2018 Secondary NOT GIVENUNK [place] Insurance:SELF PAY [facility] Number: Effective Repository Date:2018-04-16 02/05/2018 JANIS F Primary JASON Angelika Yvette PETERS337 SR Insurance:MEDICAL WITMERDOB: [address] [id number] [facility] [address]Hvz: (419) Number: Repository [phone] () [id number] Date:0505-38-97GE [address] [address]ZJ: 02/05/2018 Secondary NOT GIVENUNK [place] Insurance:SELF PAY [facility] Number: Effective Repository Date:2018-01-29 01/13/2018 JANIS F Primary JASON E [place] [id number] SR Insurance:MEDICAL WITMERDOB: [address] [id number] [facility] [address]Qwq: (419) Number: Repository [phone] () [id number] Date:2905-41-68TI [address] [address]MY: 01/13/2018 Secondary NOT GIVENUNK [place] Insurance:SELF PAY [facility] Number: Effective Repository Date:2017-12-05 01/13/2018 JANIS F Primary JASON E [place] [id number] SR Insurance:MEDICAL WITMERDOB: [address] [id number] Hospital [address]Hyw: (419) Number: Repository [phone] () [id number] Date:4288-11-06AY[address] [address]SK: 01/13/2018 Secondary NOT GIVENUNK [place] Insurance:SELF PAY [facility] Number: Effective Repository Date:2017-12-11 01/08/2018 JANIS F Primary JASON E [place] [id number] SR Insurance:MEDICAL WITMERDOB: [address] [id number] Hospital [address]Pbg: (419) Number: Repository [phone] () [id number] Date:0820-26-68WQ[address] [address]CN: 01/08/2018 Secondary NOT GIVENUNK [place]vette Insurance:SELF PAY [facility] Number: Effective Repository Date:2018-01-01 01/02/2018 JANIS Smith Primary JASON Crawford [id number] SR Insurance:MEDICAL WITMERDOB: [address] [id number] Hospital [address]Mkz: (419) Number: Repository [phone] () [id number] Date:5809-44-46PTLynn [place] 128[address]01[address]WP: 01/02/2018 Secondary NOT GIVENUNK [place]vette Insurance:SELF PAY [facility] Number: Effective Repository Date:2017-12-11 01/02/2018 JANIS Smith Primary JASON Crawford [id number] SR Insurance:MEDICAL WITMERDOB: [address] [id number] [facility] [address]Vey: (419) Number: Repository [phone] () [id number] Date:6937-81-51WDL[place] 128[address]01[address]WP: 01/02/2018 Secondary NOT GIVENUNK [place] Insurance:SELF PAY [facility] Number: Effective Repository Date:2018-01-02 01/01/2018 JANIS Smith Primary JASON Crawford [id number] SR Insurance:MEDICAL WITMERDOB: [address] [id number] Hospital [address]Nnh: (419) Number: Repository [phone] () [id number] Date:7952-14-23WZ[address] [address]SX: 01/01/2018 Secondary NOT GIVENUNK Yvette Insurance:SELF PAY [facility] Number: Effective Repository Date:2017-11-11 12/05/2017 JANIS Smith Primary JASON Crawford [id number] SR Insurance:MEDICAL WITMERDOB: [address] [id number] Hospital [address]Rkv: (419) Number: Repository [phone] () [id number] Date:8771-47-78QN [facility] [address] [place] [address]QF: 12/05/2017 Secondary NOT GIVENUNK [place] Insurance:SELF PAY [facility] Number: Effective Repository Date:2017-12-05 12/02/2017 JANIS Smith Primary JASON Crawford [id number] SR Insurance:MEDICAL WITMERDOB: [address] [id number] Hospital [address]Ynu: (419) Number: Repository [phone] () [id number] Date:7517-52-37YH [address] [place] [address]AA: 12/02/2017 Secondary NOT GIVENUNK [place] Insurance:SELF PAY [facility] Number: Effective Repository Date:2017-11-12 11/13/2017 JANIS Smith Primary JASON Crawford [id number] SR Insurance:MEDICAL WITMERDOB: [address] [id number] Hospital [address]Ayw: (419) Number: Repository [phone] () [id number] Date:0966-67-84DT [address] [address]GL: 11/13/2017 Secondary NOT GIVENUNK Yvette Insurance:SELF PAY [facility] Number: Effective Repository Date:2017-11-06 11/12/2017 JANIS Smith Primary JASON Crawford [id number] SR Insurance:MEDICAL WITMERDOB: [address] [id number] Hospital [address]Trb: (419) Number: Repository [phone] () [id number] Date:6342-93-15KW [address] [place] [address]LT: 11/12/2017 Secondary NOT GIVENUNK [place] Insurance:SELF PAY [facility] Number: Effective Repository Date:2017-11-11 10/20/2017 JANIS Smith Primary JASON Angelika Crawford [id number] SR Insurance:MEDICAL WITMERDOB: [address] [id number] Hospital [address]Kni: (419) Number: Repository [phone] () [id number] Date:8331-70-76EZ [address] [place] [address]ET: 10/20/2017 Secondary NOT GIVENUNK [place] Insurance:SELF PAY [facility] Number: Effective Repository Date:2017-10-20 10/10/2017 JANIS Smith Primary JASON E [place] [id number] SR Insurance:MEDICAL WITMERDOB: [address] [id number] Hospital [address]Xrf: (419) Number: Repository [phone] () [id number] Date:5954-82-87OS [address] [address]OS: 10/10/2017 Secondary NOT GIVENUNK Yvette Insurance:SELF PAY [facility] Number: Effective Repository Date:2017-10-02 10/07/2017 JANIS Smith Primary JASON E [place] [id number] SR Insurance:MEDICAL WITMERDOB: [address] [id number] Hospital [address]Qhf: (419) Number: Repository [phone] () [id number] Date:8053-30-61XZ [address] [address]PE: 10/07/2017 Secondary NOT GIVENUNK [place] Insurance:SELF PAY [facility] Number: Effective Repository Date:2017-09-22 10/03/2017 JANIS Smith Primary JASON E [place] [id number] SR Insurance:MEDICAL WITMERDOB: [address] 1820-21-81S[facility] [address]Jac: (419) Number: Repository [phone] () [id number] Date:4815-08-22UM [address] [place] [address]VU: 10/03/2017 Secondary NOT GIVENUNK Yvette Insurance:SELF PAY [facility] Number: Effective Repository Date:2017-09-22 10/03/2017 JANIS Smith Primary JASON Crawford [id number] SR Insurance:MEDICAL WITMERDOB: [address]08-10[facility] [address]Zvr: (419) Number: Repository [phone] () [id number] Date:5272-85-76PH [address] [address]QP: 10/03/2017 Secondary NOT GIVENUNK [place] Insurance:SELF PAY [facility] Number: Effective Repository Date:2017-10-03 09/26/2017 JANIS Smith Primary JASON Crawford [id number] SR Insurance:MEDICAL WITMERDOB: [address] [id number] Hospital [address]Cmc: (419) Number: Repository [phone] () [id number] Date:4151-17-79PN [place] 147[address]01[address]WP: 09/26/2017 Secondary NOT GIVENUNK [place] Insurance:SELF PAY [facility] Number: Effective Repository Date:2017-09-26 09/25/2017 JANIS Smith Primary JASON Crawford [id number] SR Insurance:MEDICAL WITMERDOB: [address]08[address]10[facility] [address]Qqy: (419) Number: Repository [phone] () [id number] Date:2676-19-82UK [address] [address]HC: 09/25/2017 Secondary NOT GIVENUNK [place] Insurance:SELF PAY [facility] Number: Effective Repository Date:2017-09-25 09/24/2017 JANIS Smith Primary JASON Crawford [id number] SR Insurance:MEDICAL WITMERDOB: [address]08[address]10[facility] [address]Hvc: (419) Number: Repository [phone] () [id number] Date:2827-44-17OF [place] 147[address]01[address]WP: 09/24/2017 Secondary NOT GIVENUNK Yvette Insurance:SELF PAY [facility] Number: Effective Repository Date:2017-09-24 09/17/2017 JANIS F Primary JASON Crawford [id number] SR Insurance:MEDICAL WITMERDOB: [place] [facility] [id number] Hospital [address]Iaq: Number: Repository [phone] [id number] (HP) Date:2680-42-43ZR [address] [place] [address]LS: 09/17/2017 Secondary NOT GIVENUNK [place] Insurance:SELF PAY [facility] Number: Effective Repository Date:2017-07-28 08/26/2017 JANIS Primary Insurance:MMO JASON [facility] PL[facility] Number: [id number] Repository [id number] [place] Date: [address]Wlz: (HP) 07/08/2017 JANIS Primary Insurance:MMO JASON Goel [facility] SUPERMED PLUSPolicy [facility] Number: [id number] Repository [address] [id number] [place] Date: [address]Nrd: (HP) 07/07/2017 JANIS F Primary Jason Crawford [id number] SR Insurance:MEDICAL WitmerDOB: [place] [facility] [id number] Hospital [address]Mui: Number: Repository [phone] [id number] (HP) Date:1473-09-56LJ [address] [address]LL: 07/07/2017 Secondary NOT GIVENUNK [place] Insurance:SELF PAY [facility] Number: Effective Repository Date:2017-06-30 06/26/2017 JANIS Primary Insurance:MMO JASON [facility] WITMERDOB: SUPERMED PLUSPolicy WITMERDOB: Health System Number: [id number] Repository [address] [id number] [place] Date: [address]Dwt: (HP) 06/26/2017 JANIS Primary Insurance:MMO JASON [facility] WITMERDOB: SUPERMED PLUSPolicy WITMERDOB: Health System Number: [id number] Repository [address] [id number] [place] Date: [address]Geo: (HP) 06/20/2017 JANIS Smith Primary JASON Crawford [id number] SR Insurance:MEDICAL WITMERDOB: [address] [id number] Hospital [address]Qab: 419) Number: Repository [phone] () [id number] Date:3342-15-63RL [place] 147[address]WP: 06/20/2017 Secondary NOT GIVENUNK [place]vette Insurance:SELF PAY [facility] Number: Effective Repository Date:2017-06-20 06/03/2017 JANIS Smith Primary Jason Crawford [id number] SR Insurance:MEDICAL WitmerDOB: [address] [id number] Hospital [address]Thv: Number: Repository [phone] [id number] (HP) Date:6808-72-01KS [address] [address]MA: 06/03/2017 Secondary NOT GIVENUNK Yvette Insurance:SELF PAY [facility] Number: Effective Repository Date:2017-06-03 05/29/2017 JANIS Smith Primary Jason [id number] SR Insurance:MEDICAL WitmerDOB: [address] [id number] Hospital [address]Eqi: Number: Repository [phone] [id number] (HP) Date:6849-66-89ZK [address] [address]BV: 05/29/2017 Secondary NOT GIVENUNK Yvette Insurance:SELF PAY [facility] Number: Effective Repository Date:2017-05-14 SOCIAL HISTORY SOCIAL HISTORY No Social History Records FoundFAMILY HISTORY FAMILY HISTORY No Family History Records FoundADVANCE DIRECTIVES ADVANCE DIRECTIVES No Advanced Directives Records FoundINFORMATION SOURCE INFORMATION SOURCE DATE CREATED AUTHOR AUTHOR'S ORGANIZATION 05/02/2018 [facility]
== END 2018-05-07 23:59 ==
LOC: WC 10:28
PROVIDERS: Family Provider Internal Medicine; PCP Internal Medicine; Visit Provider Internal Medicine
DX: E11.622 Type 2 diabetes mellitus with other skin ulcer (principal); L97.822 Non-pressure chronic ulcer of other part of left lower leg with fat layer exposed; J44.9 Chronic obstructive pulmonary disease, unspecified; G47.33 Obstructive sleep apnea (adult) (pediatric); M51.17 Intervertebral disc disorders with radiculopathy, lumbosacral region; I27.20 Pulmonary hypertension, unspecified; Z68.44 Body mass index [BMI] 60.0-69.9, adult; Z71.3 Dietary counseling and surveillance; F17.200 Nicotine dependence, unspecified, uncomplicated; Z79.4 Long term (current) use of insulin; Z79.899 Other long term (current) drug therapy; R60.0 Localized edema; E66.01 Morbid (severe) obesity due to excess calories
CPT/HCPCS: 11042; 99213; G0463

== ENCOUNTER 2018-05-13 08:47 | Outpatient (RCR) | payer OTHER, SELFPAY ==
[2018-05-08 01:49] VITALS: BP 143/90; PULSE 123; RESP 18
== END 2018-06-04 23:59 ==
LOC: WC 08:47
PROVIDERS: Family Provider Internal Medicine; PCP Internal Medicine; Visit Provider Internal Medicine
DX: Z09 Encounter for follow-up examination after completed treatment for conditions other than malignant neoplasm (principal)

== ENCOUNTER 2018-08-08 14:03 | Emergency (ER) | payer OTHER, SELFPAY ==
[2018-08-08 14:03] VITALS: BMI 60.9
[2018-08-08 14:04] VITALS: BP 169/87; PULSE 113; RESP 16; TEMP 36.8; O2SAT 97; BMI 60.4
--- NOTE | 2018-08-08 14:16 | CT_ITS ---
STUDY: CT ABDOMEN AND PELVIS WITH CONTRAST REASON FOR EXAM: Female, 48 years old. Abdominal pain RADIATION DOSAGE (If Supplied By Facility): CTDIvol = ( 21.87 ) mGy, DLP = ( 1658.77 ) mGycm TECHNIQUE: Transaxial images were obtained from the dome of the diaphragm to the symphysis pubis without oral contrast. 100 IV Isovue 300 was administered. Sagittal and coronal images were reconstructed. Individualized dose optimization techniques were used for this CT. COMPARISON: 10/20/2017 FINDINGS: The visualized lung bases are unremarkable. The visualized portions of the heart are within normal limits. There is decreased attenuation of the liver consistent with steatosis. Normal gallbladder and extrahepatic biliary system. Normal spleen. Normal pancreas. Normal bilateral adrenal glands. Normal right kidney. Normal left kidney. Normal visualized stomach. Normal small intestine. Normal colon. There is non-visualization of the appendix. Normal abdominal aorta. Normal inferior vena cava. Normal retroperitoneum. Normal urinary bladder. There is an elongated fluid collection lateral to the right levator ani muscle on axial images 113-122 (inferior margin not visualized) with the posterior inferior portion extending toward the anal cleft. The anterior margin abuts the medial aspect of the right obturator muscle (image 110). The fluid collection measures 6.3 x 2.2 x 2.1 cm (AP by transverse by craniocaudal). There is very little adjacent stranding. This is in region of prior air and fluid collection evident on 11/06/2016. No intrapelvic extension. There is degenerative and operative changes of the lumbar spine, similar. CT/Abdomen/Pelvis W IV Cont ONLY IMPRESSION: 1. No bowel obstruction. 2. 6.3 x 2.2 x 2.1 cm right perirectal fluid collection (in region of prior fluid collection in 2017). Very little adjacent stranding, uncertain clinical significance in regards to acute presentation. 3. Hepatic steatosis. 4. Additional chronic changes, as above. Electronically Signed: Richie Cee MD at 15:58 EDT , Service support ,
--- NOTE | 2018-08-08 14:16 | EKG12_ITS ---
Test Reason : ABDOMINAL PAIN Blood Pressure : / mmHG Vent. Rate : 103 BPM Atrial Rate : 103 BPM P-R Int : 140 ms QRS Dur : 072 ms QT Int : 346 ms P-R-T Axes : 063 042 053 degrees QTc Int : 453 ms Sinus tachycardia Otherwise normal ECG Confirmed by CHAKA CORRAL, GORDY ([id number]), supervising editor news reel ELIEZER YOUNG ([id number]) on 08/11/2018 1:24:01 PM Referred By: ABBEY Confirmed By:GORDY NULL MD
--- NOTE | 2018-08-08 14:20 | ED.DCSUM_ITS ---
- ER Visit Summary Date of Service: 08/08/18 Chief Complaint: Abdominal pain History of Present Illness: The patient is a 48 F who presents for abdominal pain since yesterday. Patient is having a stabbing pressure in the epigastric region with occasional radiation upward into the left chest and downward into the right lower quadrant. Pain is continuous and worse with movement or eating. Patient has associated nausea. Denies fever, vomiting, diarrhea, urinary symptoms. Patient has history of GERD and ulcers and is on omeprazole. Also diabetes, hypertension and COPD. Patient has chronic kidney disease. She is status post a cholecystectomy. She smokes tobacco. Denies alcohol use. Physical Examination: Vital signs: afebrile, hemodynamically stable, no hypoxia on room air, BMI of 60 General: well nourished, well developed, in no distress Skin: warm, dry, no rash, no pallor HEENT: normocephalic and atraumatic; PERRL, EOMI, moist mucous membranes Cardiovascular: Tachycardic rate and rhythm without murmurs, no peripheral edema, 2+ pulses all distal extremities Respiratory: No increased work of breathing, lungs are clear to auscultation bilaterally, no rales, rhonchi or wheezing Abdominal: Abdomen is soft, tender in the epigastrium with normoactive bowel sounds, no guarding or rebound, no masses MSK: Moves all extremities, no deformities, normal strength Neuro: Awake and alert, oriented ?4. No facial droop, sensation and motor function intact and symmetric Test Results: Abnormal Lab Results 08/08/18 08/08/18 08/08/18 14:30 14:30 14:30 WBC 9.6 RBC 4.63 Hgb 11.8 L Hct 37.8 MCV 81.6 MCH 25.5 L MCHC 31.2 L RDW 15.1 H RDW Differential 44.5 H Plt Count 306 MPV 10.1 Immature Gran % (Auto) 0.500 Neut % (Auto) 60.8 Lymph % (Auto) 28.6 [place] % (Auto) 5.2 Eos % (Auto) 4.4 Baso % (Auto) 0.5 Absolute Neuts (auto) 5.8 Absolute Lymphs (auto) 2.73 Total Counted Not Reportable Sodium 136 Potassium 3.5 Chloride 103 Carbon Dioxide 28.0 Anion Gap 5 BUN 14 Creatinine 1.15 H Estim Creat Clear Calc 51.10 Est GFR (MDRD) Af Amer 65 Est GFR (MDRD) Non-Af 53 L BUN/Creatinine Ratio 12.2 Glucose 150 H Calcium 8.5 Total Bilirubin 0.20 AST 30 ALT 39 Alkaline Phosphatase 95 Troponin I < 0.015 Total Protein 6.5 Albumin 2.2 L Globulin 4.3 H Albumin/Globulin Ratio 0.5 L Lipase 111 Serum , Qual NEGATIVE Clinical Impression(s) from Imaging Studies Abdomen/Pelvis CT 08/08/18 14:16 IMPRESSION: 1. No bowel obstruction. 2. 6.3 x 2.2 x 2.1 cm right perirectal fluid collection (in region of prior fluid collection in 2017). Very little adjacent stranding, uncertain clinical significance in regards to acute presentation. 3. Hepatic steatosis. 4. Additional chronic changes, as above. Electronically Signed: Richie Cee MD at 15:58 EDT , Service support , Medications Given Discontinued Medications Al Hydroxide/Mg Hydroxide (Mylanta Ii) 30 ml PO X1 ONE Stop: 08/08/18 14:17 Last Admin: 08/08/18 14:25 Dose: 30 ml Sodium Chloride () 1,000 mls @ 1,000 mls/hr IV .Q1H ONE Stop: 08/08/18 15:15 Last Admin: 08/08/18 14:25 Dose: 1,000 mls/hr Lidocaine HCl (Xylocaine Viscous) 15 ml PO X1 ONE Stop: 08/08/18 14:17 Last Admin: 08/08/18 14:25 Dose: 15 ml Multi-Ingredient GI Drug () 1 each PO X1 ONE Stop: 08/08/18 14:17 Last Admin: 08/08/18 14:25 Dose: Not Given Ondansetron HCl (Zofran) 4 mg IV X1 ONE Stop: 08/08/18 14:17 Last Admin: 08/08/18 14:25 Dose: 4 mg Emergency Department Course and Treatment: Patient was given IV fluids, Zofran for nausea and a GI cocktail to start treatment for her epigastric pain. Exam of the abdomen is limited by body habitus, thus CT of the abdomen and pelvis was performed. Because of the location of the pain in the epigastrium and patient's age, female status, and diabetes history, chest pain work-up was also included due to possibility for atypical ACS. EKG showed a sinus rhythm with no ischemic changes. Troponin was negative. Labs showed no leukocytosis, no acute renal dysfunction, normal hepatic function, normal lipase. negative. CT abdomen and pelvis showed steatosis which was known based on patient's history but showed no other acute upper abdominal process to explain patient's symptoms. There was a perirectal fluid collection in bed that does not correlate clinically with patient's complaint today and was noted on a prior CT scan from 2017. On reevaluation patient was feeling much better. She was given a p rescription for sucralfate to help with the stomach upset. She will continue all her home medications. Patient was discharged home in improved condition and is to follow-up with her primary care doctor. Treatment Plan: [] Disposition: [] Impression: Gastritis This note was generated with [employer] dictation software. It may contain incorrect words, spelling, and punctuation that were not noted in review of the chart prior to signing ED Disposition - Plan for ED Patient: Disposition: Home or Assisted Living Instructions: ED PUD Vs Gastritis Prescriptions: Sucralfate 1 gm PO ACHS #56 tab Referrals: Naomi Colunga DO [Primary Care Provider] - 3-5 Days if not improving Additional Instructions: You may use the sucralfate, taking it before every meal and at bedtime, to see if this helps with your upset stomach. Please follow-up with your doctor this week for another exam, especially if you continue to have discomfort. If you have any worsening of your condition or any new concerning symptoms, please return immediately to the emergency department for another evaluation.
[2018-08-08] MEDS: Ondansetron 4 MG/2 ML Vial IV (14:25)
[2018-08-08] MEDS: 0.9% Normal Saline 1,000 ML 1000 ML IV (14:25)
[2018-08-08] MEDS: Mag Hydrox/Al Hydrox/Simeth 30 ML UDC PO (14:25)
[2018-08-08 14:39] LABS: Absolute Lymphocyte Count 2.73 X10^3/ul (0.83-4.51); Absolute Neutrophil Count 5.8 X10^3/uL (2.0-7.7); Basophil# 0.05 X10^3/uL; Basophil% 0.5 % (0-1); Eosinophil# 0.42 X10^3/uL; Eosinophils% 4.4 % (0-5); Hematocrit 37.8 % (37-47); Hemoglobin 11.8 g/dl (12.0-15.0); Lymphocyte # 2.73 X10^3/ul (4.0); Lymphocyte % 28.6 % (19-41); Mean Corp Hgb Conc 31.2 g/gl (32-36); Mean Corpuscular Hgb 25.5 pg (27.0-32.0); Mean Corpuscular Volume 81.6 fL (81-99); Mean Platelet Vol. 10.1 fl (6.2-12.0); Monocyte% 5.2 % (0-10); Neutrophil % 60.8 % (47-70); POSITIVE COUNT NO; POSITIVE DIFFERENTIAL NO; POSITIVE MORPHOLOGY NO; Platelet Count 306 K/mm3 (150-450); RBC Distribution Width CV 15.1 % (11.6-14.6); RBC Distribution Width SD 44.5 fl (35.1-43.9); Red Blood Count 4.63 M/mm3 (4.2-5.4); White Blood Count 9.6 K/mm3 (4.4-11.0)
[2018-08-08 15:09] LABS: ALB/GLOB Ratio 0.5 RATIO (0.9-2.4); AST(SGOT) 30 U/L (15-37); Alanine Aminotransfer ALT/SGPT 39 U/L (13-56); Albumin, Serum 2.2 g/dL (3.2-5.0); Alkaline Phosphatase 95 U/L (45-117); Anion Gap 5 (5-15); BUN 14 mg/dL (7-18); BUN/Creat Ratio 12.2 RATIO (10-20); Calcium,Total 8.5 mg/dL (8.5-10.1); Chloride 103 mmol/L (98-107); Creatinine, Serum 1.15 mg/dL (0.55-1.02); EST Glomerular Filtration Rate 53 mL/min (>60); Est Glom Filt Rate - Afr Amer 65 mL/min (>60); Globulin 4.3 g/dL (2.2-4.2); Glucose 150 mg/dL (74-106); Lipase 111 U/L (73-393); Potassium 3.5 mmol/L (3.5-5.1); Protein, Total 6.5 g/dL (6.4-8.2); Sodium Level 136 mmol/L (136-145)
[2018-08-08 15:25] LABS: Internal QC Validated? YES +Cl - CLEAR BKGD; Pregnancy, Serum, hCG Quali. NEGATIVE Negative
[2018-08-08 16:29] VITALS: BP 162/103; PULSE 98; RESP 16; O2SAT 94
== END 2018-08-08 16:30 | disposition home or self-care (01) ==
PROVIDERS: Emergency Provider Emergency Medicine; Family Provider Internal Medicine; PCP Internal Medicine
DX: K29.70 Gastritis, unspecified, without bleeding (principal); K76.0 Fatty (change of) liver, not elsewhere classified; E66.9 Obesity, unspecified; Z68.44 Body mass index [BMI] 60.0-69.9, adult; K21.9 Gastro-esophageal reflux disease without esophagitis; I12.9 Hypertensive chronic kidney disease with stage 1 through stage 4 chronic kidney disease, or unspecified chronic kidney disease; E11.22 Type 2 diabetes mellitus with diabetic chronic kidney disease; N18.9 Chronic kidney disease, unspecified; J44.9 Chronic obstructive pulmonary disease, unspecified; Z90.49 Acquired absence of other specified parts of digestive tract; Z79.84 Long term (current) use of oral hypoglycemic drugs; Z79.82 Long term (current) use of aspirin; Z79.899 Other long term (current) drug therapy; Z72.0 Tobacco use
CPT/HCPCS: 74177; 80053; 83690; 84484; 84703; 85025; 93005; 96361; 96374; 99285; J7030; Q9967; A4216; J2405

== ENCOUNTER → 2018-09-02 | Outpatient (CLI) | payer OTHER, SELFPAY ==
[2018-08-19 13:32] VITALS: BMI 60.9
--- NOTE | 2018-09-02 16:57 | CT_ITS ---
STUDY: CTA CHEST REASON FOR EXAM: Female, 48 years old. Elevated d-dimer RADIATION DOSAGE (If Supplied By Facility): CTDIvol = ( 19.74 ) mGy, DLP = ( 740.71 ) mGycm TECHNIQUE: The examination was performed with the intravenous administration of 100CC IV Isovue 370. Post-processing of the angiographic images was performed, with multiplanar reformation and 3D reconstruction. Individualized dose optimization techniques were used for this CT. COMPARISON: None. FINDINGS: Normal enhancement of the main pulmonary artery and right and left pulmonary arteries. Normal enhancement of the bilateral peripheral pulmonary arteries. There is no demonstrated pulmonary embolism. Normal thoracic aorta and visualized great vessels. There is no demonstrated aortic dissection. Normal heart and pericardium. Normal mediastinum. Normal hilar regions. Normal visualized trachea and bronchi. The lungs are well expanded. There is no consolidation. Mild peripheral groundglass opacities are present bilaterally. Normal pleura. Normal chest wall structures. Normal osseous structures. Normal visualized upper abdomen. CT/CTA Chest W/WO Contrast IMPRESSION: No evidence of pulmonary embolism. Mild peripheral groundglass opacities bilaterally. Consider inflammatory process and/or atelectasis. Electronically Signed: Harry Kirk, at 17:34 EDT Tel , Service support ,
== END | disposition home or self-care (01) ==
PROVIDERS: Family Provider Internal Medicine; PCP Internal Medicine; Referring Provider Internal Medicine; Visit Provider Internal Medicine
DX: R79.89 Other specified abnormal findings of blood chemistry (principal)
CPT/HCPCS: 71275; Q9967

== ENCOUNTER → 2018-09-02 | Outpatient (CLI) | payer OTHER, SELFPAY ==
[2018-08-19 13:32] VITALS: BMI 60.9
== END | disposition home or self-care (01) ==
PROVIDERS: Family Provider Internal Medicine; PCP Internal Medicine; Referring Provider Internal Medicine; Visit Provider Internal Medicine
DX: R07.9 Chest pain, unspecified (principal)
CPT/HCPCS: 71046; 84484

== ENCOUNTER → 2019-01-29 12:49 | Outpatient (CLI) | payer OTHER, SELFPAY ==
[2018-08-19 13:32] VITALS: BMI 60.9
[2019-01-29 13:53] LABS: Hematocrit 40.7 % (37-47); Hemoglobin 12.5 g/dL (12.0-15.0); Mean Corp Hgb Conc 30.7 g/dL (32-36); Mean Corpuscular Hgb 25.7 pg (27.0-32.0); Mean Corpuscular Volume 83.7 fL (81-99); Mean Platelet Vol. 10.6 fl (6.2-12.0); Platelet Count 279 K/mm3 (150-450); RBC Distribution Width CV 14.9 % (11.6-14.6); RBC Distribution Width SD 44.8 fl (35.1-43.9); Red Blood Count 4.86 M/mm3 (4.2-5.4); White Blood Count 8.9 K/mm3 (4.4-11.0)
[2019-01-29 14:01] LABS: Protein, Urine (Random) 366.8 mg/dL (<11.9); Protein:Creat Ratio 7804 mg/g CRE (0-200)
[2019-01-29 14:08] LABS: Albumin, Serum 2.4 g/dL (3.2-5.0); BUN 18 mg/dL (7-18); BUN/Creat Ratio 14.1 RATIO (10-20); Calcium,Total 8.7 mg/dL (8.5-10.1); Chloride 105 mmol/L (98-107); Creatinine, Serum 1.28 mg/dL (0.55-1.02); EST Glomerular Filtration Rate 47 mL/min (>60); Est Glom Filt Rate - Afr Amer 57 mL/min (>60); Glucose 198 mg/dL (74-106); Phosphorus 3.4 mg/dL (2.5-4.9); Potassium 3.7 mmol/L (3.5-5.1); Sodium Level 139 mmol/L (136-145)
[2019-01-29 14:17] LABS: PTHIN 58.1 pg/mL (18.4-80.1); Vitamin D,25 Hydroxy 24.7 ng/mL (29.95-100.01)
== END ==
PROVIDERS: Family Provider Internal Medicine; PCP Internal Medicine; Referring Provider Internal Medicine Nephrology; Visit Provider Internal Medicine Nephrology
DX: N04.9 Nephrotic syndrome with unspecified morphologic changes (principal); E55.9 Vitamin D deficiency, unspecified
CPT/HCPCS: 36415; 80069; 82306; 82570; 83970; 84156; 85027

== ENCOUNTER 2019-04-09 15:49 | Inpatient (IN) | payer OTHER, SELFPAY ==
[2018-08-19 13:32] VITALS: BMI 60.9
[2019-04-09] VITALS (12 sets, daily range): BP systolic 163–202; BP diastolic 76–122; PULSE 87–128; RESP 15–22; TEMP 36.6–37; O2SAT 94–98; BMI 60.9; BMI 61.3
--- NOTE | 2019-04-09 16:45 | EKG12_ITS ---
Test Reason : SOB Blood Pressure : / mmHG Vent. Rate : 112 BPM Atrial Rate : 112 BPM P-R Int : 126 ms QRS Dur : 066 ms QT Int : 344 ms P-R-T Axes : 050 042 014 degrees QTc Int : 469 ms Sinus tachycardia Otherwise normal ECG Confirmed by CHAKA CORRAL, GORDY ([id number]), video effects editor ELIEZER YOUNG ([id number]) on 04/12/2019 12:51:43 PM Referred By: ZULEMA Confirmed By:GORDY NULL MD
--- NOTE | 2019-04-09 16:45 | RAD_ITS ---
STUDY: X-RAY CHEST REASON FOR EXAM: Female, 48 years old. Cordis of breath. History of asthma and COPD. TECHNIQUE: Single AP portable view of the chest. COMPARISON: Chest, April 16, 2018. FINDINGS: There is a mildly decreased inspiratory effort. There is probable atelectasis at the right lung base. Lungs are otherwise clear. There is no demonstrated pleural abnormality. Normal size heart. Normal mediastinum and lesli. Normal visualized pulmonary arteries. Normal visualized aortic arch and descending thoracic aorta. There are diffuse degenerative changes of the visualized thoracic spine. There is degenerative osteoarthritis of the bilateral shoulders. There is no demonstrated abnormality of the visualized soft tissue structures of the upper abdomen. RAD/Chest 1 View (Portable) IMPRESSION: Question right basilar atelectasis. There is no other interval change Electronically Signed: John Davenport DO at 17:25 EST Tel [phone], Service support ,
[2019-04-09] MEDS: Albuterol 2.5 MG/3 ML VIAL.NEB. INHALATION ×3 (16:58→18:58)
[2019-04-09] MEDS: Ipratropium/Albuterol Sulfate 3 ML AMPUL.NEB INHALATION (16:58)
[2019-04-09] MEDS: MethylPREDNISolone 125 MG/2 ML Vial IV (17:09)
[2019-04-09 17:32] LABS: Absolute Lymphocyte Count 2.58 X10^3/uL (0.83-4.51); Absolute Neutrophil Count 7.3 X10^3/uL (2.0-7.7); Basophil# 0.08 X10^3/uL; Basophil% 0.7 % (0-1); Eosinophil# 0.38 X10^3/uL; Eosinophils% 3.5 % (0-5); Hematocrit 36.9 % (37-47); Hemoglobin 11.3 g/dL (12.0-15.0); Lymphocyte # 2.58 X10^3/ul (4.0); Lymphocyte % 23.6 % (19-41); Mean Corp Hgb Conc 30.6 g/dL (32-36); Mean Corpuscular Volume 81.6 fL (81-99); Mean Platelet Vol. 10.4 fl (6.2-12.0); Monocyte# 0.53 X10^3/uL; Monocyte% 4.8 % (0-10); NRBC Flagged by Analyzer 0 % (0-5); Neutrophil # 7.31 X10^3/uL (2.7-7.7); Neutrophil % 66.9 % (47-70); Platelet Count 252 K/mm3 (150-450); RBC Distribution Width CV 14.7 % (11.6-14.6); RBC Distribution Width SD 43.3 fl (35.1-43.9); Red Blood Count 4.52 M/mm3 (4.2-5.4); White Blood Count 10.9 K/mm3 (4.4-11.0)
--- NOTE | 2019-04-09 17:35 | ED.VISSUMM ---
- ER Visit Summary Date of Service: 04/09/19 Chief Complaint: Shortness of breath History of Present Illness: The patient is a 48 F presenting with shortness of breath. Patient states that started 2 weeks ago and has been progressively worsening. She has shortness of breath which is worsened with exertion. She has a history of COPD and has been trying her breathing treatments at home with no relief. She has not been on any recent steroids. She has a family history of PE, no other PE/DVT risk factors. She does have sick contacts. She did receive a flu shot this year. She has had a cough. She complains of myalgias and headache. She is a smoker. Physical Examination: Vitals are stable. Patient is afebrile. Alert no acute distress. HEENT exam is unremarkable. Neck is supple. Lungs are wheezing bilaterally. Heart is regular and tachycardic Abdomen is soft nontender nondistended. Extremities are unremarkable. Skin is warm and dry. No focal neurologic deficit. Remainder of exam is unremarkable. Emergency Department Course and Treatment: Patient was given albuterol, Atrovent aerosols. She was given Solu-Medrol IV. EKG is sinus tachycardia rate of 112. Chest x-ray shows atelectasis. CBC normal except hemoglobin 11.3. Chemistries show glucose 196, BUN 19, creatinine 1.58. Lipase is normal. Lactic acid is normal. Influenza negative. Troponin 0.021. D-dimer 2.07. Patient was given IV fluids. CTA chest was obtained and shows no evidence of pulmonary embolus. No aortic dissection or aneurysm. Nonspecific subcentimeter mediastinal and hilar lymphadenopathy. Bilateral pleural effusions and atelectasis. Patient continues to have shortness of breath, worsened with attempting to ambulate in the ED. Discussed with the hospitalist for admission. Disposition: Admission Impression: COPD exacerbation This note was generated with [employer] dictation software. It may contain incorrect words, spelling, and punctuation that were not noted in review of the chart prior to signing ED Disposition - Plan for ED Patient: Referrals: Naomi Colunga DO [Primary Care Provider] -
[2019-04-09 17:51] LABS: D-Dimer Quantitative (DVT/PE) 2.07 FEU/ug/m (0.27-0.49)
[2019-04-09 17:52] LABS: Anion Gap 6 (5-15); BUN 19 mg/dL (7-18); Calcium,Total 8.6 mg/dL (8.5-10.1); Chloride 106 mmol/L (98-107); Creatinine, Serum 1.58 mg/dL (0.55-1.02); EST Glomerular Filtration Rate 37 mL/min (>60); Est Glom Filt Rate - Afr Amer 45 mL/min (>60); Estimated Creatinine Clearance 37.19 ml/min; Glucose 196 mg/dL (74-106); Potassium 3.8 mmol/L (3.5-5.1); Sodium Level 141 mmol/L (136-145)
--- NOTE | 2019-04-09 17:53 | CT_ITS ---
STUDY: CTA CHEST REASON FOR EXAM: Female, 48 years old. Elevated d-dimer. RADIATION DOSAGE (If Supplied By Facility): CTDIvol = ( 16.36 ) mGy, DLP = ( 738.04 ) mGycm TECHNIQUE: The examination was performed with the intravenous administration of 100ML ISOVUE 370. Post-processing of the angiographic images was performed, with multiplanar reformation and 3D reconstruction. Individualized dose optimization techniques were used for this CT. COMPARISON: Chest, April 09, 2019. CTA of the chest, September 02, 2018. FINDINGS: Normal enhancement of the main pulmonary artery and right and left pulmonary arteries. Normal enhancement of the bilateral peripheral pulmonary arteries. There is no demonstrated pulmonary embolism. Normal thoracic aorta and visualized great vessels. There is no demonstrated aortic dissection. Normal heart and pericardium. There is nonspecific subcentimeter prevascular AP window and subcarinal lymphadenopathy. No hilar lymphadenopathy. Normal visualized trachea and bronchi. The lungs are well expanded. There are [id number] bilateral pleural effusions and atelectasis. There is no focal pulmonary mass or infiltrate. There is a focal area of atelectasis in the left upper lobe along the lateral aspect of the junction of the oblique and horizontal fissures. Normal chest wall structures. There are degenerative changes of thoracic spine. Normal visualized upper abdomen. CT/CTA Chest W/WO Contrast IMPRESSION: 1. No evidence of pulmonary embolus. 2. No aortic dissection or aneurysm. 3. Nonspecific subcentimeter mediastinal and hilar lymphadenopathy. 4. Bilateral pleural effusions and atelectasis. Electronically Signed: John Davenport DO at 18:40 EST Tel [phone], Service support ,
[2019-04-09 17:54] LABS: Lactic Acid 1.3 mmol/L (0.4-1.9)
[2019-04-09] MEDS: 0.9% Normal Saline 1,000 ML 999 ML IV (17:57)
--- NOTE | 2019-04-09 18:12 | ED.RN ---
ddimer 2.[address] lab[address] dr freitas aware
[2019-04-09 18:14] LABS: Lipase 181 U/L (73-393)
--- NOTE | 2019-04-09 19:18 | HP.PCM_ITS ---
Problem List (1) COPD exacerbation Status: Acute (2) COPD (chronic obstructive pulmonary disease) Status: Chronic (3) DDD (degenerative disc disease), lumbosacral Status: Chronic (4) Radiculopathy of lumbosacral region Status: Chronic (5) Type 2 diabetes mellitus Status: Chronic (6) Nicotine dependence, cigarettes, uncomplicated Status: Chronic (7) Moderate COPD (chronic obstructive pulmonary disease) Status: Chronic (8) Continuous tobacco abuse Status: Chronic (9) WATTS (dyspnea on exertion) Status: Chronic (10) Obstructive sleep apnea Status: Chronic Comment: CPAP of 15 cm of water. The patient is noncompliant with use. (11) Adult-onset obesity Status: Chronic (12) Pulmonary hypertension Status: Chronic History of Present Illness Date of Admission: 04/09/19 Chief Complaint: shortness of breath The patient is a 48 year old F with a significant history of super morbid obesity; tobacco abuse; IgA nephropathy; diabetes mellitus; pulmonary hypertension and congestive heart failure who presented to the emergency department with shortness of breath. Patient reports that her shortness of breath is with exertion and when she sits down she has difficulty catching her breath. She denies heaviness or wheezing. She denies coughing but however she feels thayt there is something in her throat that she cannot bring up. She reports orthopnea proximal nocturnal dyspnea. She reports a weight gain of about 50 pounds in 1 year. She reported she is on hydrochlorothiazide PRN for leg swelling in the last time she took to that was summer 2018. She sees nephrology, Dr. Larson who told her to take hydrochlorothiazide only as needed because she developed significant significant bilateral leg cramps from hypokalemia. She reported that many years ago she was diagnosed with CHF at an outside hospital Past Medical History Past Medical History (Chronic Problems): Chronic Problems (Last Reviewed 04/09/19 @ 20:46 by Bebo Bravo MD) DDD (degenerative disc disease), lumbosacral (Chronic) Radiculopathy of lumbosacral region (Chronic) Type 2 diabetes mellitus (Chronic) Nicotine dependence, cigarettes, uncomplicated (Chronic) COPD (chronic obstructive pulmonary disease) (Chronic) Moderate COPD (chronic obstructive pulmonary disease) (Chronic) Continuous tobacco abuse (Chronic) WATTS (dyspnea on exertion) (Chronic) Obstructive sleep apnea (Chronic) CPAP of 15 cm of water. The patient is noncompliant with use. Adult-onset obesity (Chronic) Pulmonary hypertension (Chronic) Stage 1 mild COPD by GOLD classification (Chronic) Medical History: Medical History (Last Reviewed 04/09/19 @ 22:59 by Bebo Bravo MD) Nicotine dependence, cigarettes, uncomplicated (Chronic) F17.210 COPD (chronic obstructive pulmonary disease) (Chronic) J44.9 Continuous tobacco abuse (Chronic) Z72.0 WATTS (dyspnea on exertion) (Chronic) R06.09 Obstructive sleep apnea (Chronic) G47.33 CPAP of 15 cm of water. The patient is noncompliant with use. Adult-onset obesity (Chronic) E66.9 Pulmonary hypertension (Chronic) I27.20 Stage 1 mild COPD by GOLD classification (Chronic) J44.9 Allergies amlodipine Allergy (Verified 04/09/19 15:52) severe edema atenolol Allergy (Verified 04/09/19 15:52) Swelling ciprofloxacin [From Cipro] Allergy (Verified 04/09/19 15:52) Itching ciprofloxacin HCl [From Cipro] Allergy (Verified 04/09/19 15:52) Itching estradiol [From Estrace] Allergy (Verified 04/09/19 15:52) Swelling meloxicam Allergy (Verified 04/09/19 15:52) Itching niacin Allergy (Verified 04/09/19 15:52) Itching Home Medications: Ambulatory Orders Medication Instructions Recorded Albuterol Aerosols [Ventolin 2.5 mg INHALATION Q4H PRN PRN 05/03/15 Aerosols] Omeprazole [Prilosec] 40 mg PO BID 05/03/15 Imipramine HCl [Tofranil] 50 mg PO QHS 05/07/16 Cholecalciferol (Vitamin D3) 6,000 unit PO DAILY 08/31/16 [Vitamin D3] Levothyroxine [Synthroid] 50 mcg PO DAILY 08/31/16 Loratadine [Claritin] 10 mg PO DAILY PRN PRN 08/31/16 Aspirin [Aspir-Low] 81 mg PO QHS 09/17/16 Duloxetine HCl 60 mg PO QHS 04/03/17 albuterol sulfate 90 mcg/actuation 2 puff INHALATION Q4H PRN PRN #18 g 02/05/18 aerosol inhaler Ropinirole HCl [Requip] 3 mg PO DAILY 08/08/18 Sitagliptin Phosphate [Januvia] 100 mg PO DAILY 08/08/18 metFORMIN HCl [Glucophage] 500 mg PO BID 08/08/18 Diltiazem CD [Cardizem CD] 120 mg PO DAILY 04/09/19 Fluticasone Propionate 2 spray INTRANASAL DAILY PRN PRN 04/09/19 Glycopyrrolate/Formoterol Fum 2 puff IH BID 04/09/19 [Bevespi Aerosphere Inhaler] Surgical History: cholecystectomy, hysterectomy, - - ERCP with stenting of common bile duct; carpal tunnel surgery; neck surgery; back surgery. Smoking Status: Current every day smoker Tobacco Use: Cigarettes - *Family History Maternal History Items: Heart Disease Paternal History Items: Heart Disease Review of Systems Constitutional: Reports: Weight Change - Reports a weight gain of about 50 pounds in 1 year.. Denies: Chills, Fever HEENT: Denies: Head Aches, Sinus Congestion, Sinus Drainage Cardiovascular: Reports: Chest Pain. Denies: Palpitations Respiratory: Reports: Shortness of Breath, Shortness of breath at rest, Shortness of breath upon exertion. Denies: Cough Gastrointestinal: Denies: Abdominal Pain, Nausea, Vomiting Genitourinary: Denies: Dysuria Musculoskeletal: Denies: Joint Pain, Joint Tenderness Skin: Denies: Rash, Wounds Neurological: Denies: Numbness, Tingling, Focal weakness Psychiatric: Denies: Anxiety, Depression, Homicidal Ideations, Suicidal Ideations Hematologic/ Lymphatic: Denies: Easy Bruising, Easy Bleeding VTE Information - Inpt Only VTE Present on Admission: No VTE Mechan Device Prophylaxis: None VTE Pharm Prophylaxis ordered?: Yes Patient Problems: Active and Suspected Problems (Last Reviewed 04/09/19 @ 20:46 by Bebo Bravo MD) COPD exacerbation (Acute) - Physical Exam Vitals/I&O's: Vital Signs Temp Pulse Resp BP Pulse Ox 98 F 121 H 18 180/76 H 94 04/09/19 16:40 04/09/19 18:59 04/09/19 18:59 04/09/19 18:50 04/09/19 18:50 Oxygen Delivery Method Room Air Weight: 161.025 kg Body Mass Index (BMI) 60.9 Finger Stick Blood Glucose 124 Intake and Output for Last 24 Hours 04/07/19 04/08/19 04/09/19 23:59 23:59 23:59 Intake Total 999 / 999 Balance 999 / 999 General: Alert, Oriented x3, Cooperative, - - Morbidly obese HEENT: Atraumatic, PERRLA, EOMI, Normocephalic Neck: Supple, No JVD, Negative Carotid Bruits Lungs: Diminished - Mild, Wheezes - Mild Cardiovascular: Regular rate, Normal S1, Normal S2, No murmurs Abdomen: Bowel Sounds Present, Soft, Non Tender Extremities: No edema, Capillary Refill Less than 3 Seconds Skin: No rashes, No breakdown Musculoskeletal: No Tenderness to Palpation of Joints or Extremities Neurological: Cranial nerves II-XII grossly intact Psych/Mental Status: Normal Affect, Appropriate Microbiology Past 72 Hours 04/09/19 17:10 Mucosa - Nose Influenza Types A,B Direct FA (MICHAEL) - Final Laboratory Results 04/09/19 17:15: WBC 10.9, RBC 4.52, Hgb 11.3 L, Hct 36.9 L, MCV 81.6, MCH 25.0 L , MCHC 30.6 L, RDW Std Deviation 43.3, RDW Coeff of Raman 14.7 H, Plt Count 252, MPV 10.4, Immature Gran % (Auto) 0.500, Neut % (Auto) 66.9, Lymph % (Auto) 23.6, [place] % (Auto) 4.8, Eos % (Auto) 3.5, Baso % (Auto) 0.7, Absolute Neuts (auto) 7.3, Absolute Lymphs (auto) 2.58, Nucleated RBC % 0 04/09/19 17:15: D-Dimer Quant (PE/DVT) 2.07 H* 04/09/19 17:15: Sodium 141, Potassium 3.8, Chloride 106, Carbon Dioxide 29.0, Anion Gap 6, BUN 19 H, Creatinine 1.58 H, Estim Creat Clear Calc 37.19, Est GFR (MDRD) Af Amer 45 L, Est GFR (MDRD) Non-Af 37 L, BUN/Creatinine Ratio 12.0, Glucose 196 H, Calcium 8.6, Troponin I 0.021 04/09/19 17:15: Lactic Acid 1.3 04/09/19 17:15: Lipase 181 Assessment/Plan All Active Problems (Last Reviewed 04/09/19 @ 20:46 by Bebo Bravo MD) COPD exacerbation (Acute) The patient is a 48 year old F with a significant history of super morbid obesity; tobacco abuse; IgA nephropathy; diabetes mellitus; pulmonary hypertension and congestive heart failure who presented to the emergency department with shortness of breath and found to have radiographic evidence of bilateral pleural effusion and atelectasis. Probable COPD exacerbation Chest x-ray impression: Questionable right basilar atelectasis. Chest CTA: Bilateral pleural effusion and atelectasis EKG independently reviewed confirms sinus tachycardia Scheduled DuoNeb Albuterol as needed Received Solu-Medrol 125 mg admitted department. Continue patient on prednisone 40 mg daily. Oxygen as needed Mucinex ordered Incentive Spirometer atelectasis. Monitor BMP and CBC Probable acute Exacerbation of heart failure and pulmonary hypertension. Likely secondary to right-sided heart failure Place on monitored bed on MedSurg telemetry Weight on admission to the floor; and then daily Strict I&O's Diuresis with 40 mg IV twice daily supplement potassium Echo ordered Monitor electrolytes and renal function Fluid restriction of 1500 mls daily 2 g cardiac diet; and calorie controlled diet Hypertensive urgency On presentation her systolic blood pressure was more than 180. Patient have a significant leg swelling with amlodipine. Patient has tachycardia will not give hydralazine at this time. Patient has allergy to atenolol. Hydrochlorothiazide 12.5 mg daily ordered. Lasix as above. PRN Catapres ordered. TESSIE on chronic kidney disease stage III On presentation her creatinine was 1.58. Review of old records showed creatinine baseline around 1.1 CKD Likely from Diabetic nephropathy and IgA nephropathy Trend BMP . Avoid nephrotoxic's. Will give Lasix because of probable congestion. Diabetes mellitus type II With complications including diabetic nephropathy. Patient with hyperglycemia Hold home metformin. Continue DPP 4 inhibitors Accu-Cheks a.c. and at bedtime and covered with short acting insulin per protocol. Obstructive Sleep apnea Home CPAP continued Tobacco abuse Counseled Smokes about 5 cigarettes/day and feels that she would not need nicotine patch. GERD PPI continued DVT prophylaxis Subcutaneous Heparin ordered Code Visit Inpatient E&M: 91411 Init Hosp L3
--- NOTE | 2019-04-09 20:33 | ECHOCS_ITS ---
Reason For Study: Dyspnea/SOB Procedure This was a 2D Doppler, Color Flow transthoracic echocardiogram. The study was technically difficult. Contrast injection was performed. Exam performed portable in patient room. Left Ventricle Normal LV size. Moderate concentric left ventricular hypertrophy. Left ventricular systolic function is normal. The estimated ejection fraction is 55 %. Stage 1 diastolic dysfunction. No regional wall motion abnormalities noted. Tricuspid Valve Normal tricuspid valve. Mild to moderate (1-2+) tricuspid valve insufficiency. Pulmonary artery systolic pressure is 52 mmHg. Great Vessels Normal aortic root. The pulmonary artery is normal size. Normal inferior vena cava. Pericardium/Pleural No pericardial effusion. Medication Diluted definity 4ml given slow IV push to enhance endocardial definition. MMode/2D Measurements & Calculations LVIDd: 5.3 cm IVSd: 1.6 cm Ao root diam: 2.9 cm LVIDs: 3.8 cm LVPWd: 1.6 cm FS: 28.7 % LAV(MOD-bp): 48.9 ml SV(MOD-sp4): 43.8 ml LVAd ap4: 25.6 cm2 LAV(MOD-bp) Indexed: 19.6 ml/m2 EDV(MOD-sp4): 69.5 ml LAV(MOD-sp2): 54.7 ml EDV(sp4-el): 70.9 ml LAV(MOD-sp4): 43.1 ml LVAs ap4: 13.3 cm2 ESV(MOD-sp4): 25.7 ml ESV(sp4-el): 25.6 ml EF(MOD-sp4): 63.0 % EF(sp4-el): 64.0 % SV(sp4-el): 45.4 ml LA A4 area: 17.3 cm2 LA dimension(2D): 4.3 cm Doppler Measurements & Calculations MV E max luke: 116.4 cm/sec Lat Peak E' Luke: 8.1 cm/sec Med Peak E' Luke: 8.9 cm/sec MV A max luke: 128.5 cm/sec E/E' lat: 14.4 E/E' med: 13.1 MV E/A: 0.91 Ao V2 max: 157.2 cm/sec LV V1 max: 128.8 cm/sec PA V2 max: 109.5 cm/sec Ao max P.9 mmHg LV V1 max P.6 mmHg Ao V2 mean: 106.7 cm/sec Ao mean P.1 mmHg Ao V2 VTI: 26.7 cm TR max luke: 343.4 cm/sec TR max P.2 mmHg Interpretation Summary Normal LV size. Moderate concentric left ventricular hypertrophy. Stage 1 diastolic dysfunction. The estimated ejection fraction is 55 %. Contrast injection was performed. Ordering Physician: Bebo Bravo Referring Physician: Naomi Colunga Performed By: Barbara Ruiz, ANNELIESE, RVT
[2019-04-09] MEDS: Loratadine 10 MG Tablet PO (22:02)
[2019-04-09] MEDS: DULoxetine Hcl 60 MG Capsule PO (22:03)
[2019-04-09] MEDS: guaiFENesin 1,200 MG Tablet 1200 MG PO (22:03)
[2019-04-09] MEDS: Pantoprazole Sodium 40 MG Tablet PO (22:03)
[2019-04-09] MEDS: dilTIAZem CD 120 MG Capsule PO (22:03)
[2019-04-09] MEDS: Sucralfate 1 GM Tablet PO (22:03)
[2019-04-09] MEDS: Imipramine HCl 25 MG Tablet 50 MG PO (22:03)
[2019-04-09] MEDS: Fluticasone 0.05% 1 SPRAY NASAL.SRY 2 SPRAY NASAL (22:04)
[2019-04-09] MEDS: Heparin Injection (Vial) 5,000 UNIT/ML VIAL 5000 UNIT SC (22:04)
[2019-04-09] MEDS: hydroCHLOROthiazide 25 MG Tablet 12.5 MG PO (22:05)
[2019-04-09] MEDS: Furosemide 40 MG/4 ML Vial IV (22:05)
[2019-04-09] MEDS: Insulin Lispro 100 UNIT/ML INSULN.PEN SC (22:05)
[2019-04-09] MEDS: cloNIDine HCl 0.1 MG Tablet PO (22:15)
[2019-04-10] VITALS (10 sets, daily range): BP systolic 159–190; BP diastolic 89–117; PULSE 102–119; RESP 18–24; TEMP 35.8–36.6; O2SAT 92–94
[2019-04-10 00:20] LABS: Bedside Glucose 314 mg/dL (70-110)
[2019-04-10] MEDS: Acetaminophen 325 MG Tablet 650 MG PO ×2 (01:32→12:27)
[2019-04-10] MEDS: Pramipexole Di-HCl 1 MG Tablet 1.5 MG PO (02:09)
[2019-04-10] MEDS: cloNIDine HCl 0.1 MG Tablet PO ×2 (03:10→09:39)
[2019-04-10 04:28] LABS: Absolute Lymphocyte Count 0.99 X10^3/uL (0.83-4.51); Absolute Neutrophil Count 12.9 X10^3/uL (2.0-7.7); Basophil# 0.05 X10^3/uL; Basophil% 0.4 % (0-1); Eosinophil# 0.01 X10^3/uL; Eosinophils% 0.1 % (0-5); Hematocrit 37.9 % (37-47); Hemoglobin 11.8 g/dL (12.0-15.0); Lymphocyte # 0.99 X10^3/ul (4.0); Mean Corp Hgb Conc 31.1 g/dL (32-36); Mean Corpuscular Hgb 25.1 pg (27.0-32.0); Mean Corpuscular Volume 80.6 fL (81-99); Mean Platelet Vol. 10.3 fl (6.2-12.0); Monocyte# 0.08 X10^3/uL; Monocyte% 0.6 % (0-10); NRBC Flagged by Analyzer 0 % (0-5); Neutrophil % 91.4 % (47-70); Platelet Count 261 K/mm3 (150-450); RBC Distribution Width CV 14.7 % (11.6-14.6); RBC Distribution Width SD 42.8 fl (35.1-43.9); White Blood Count 14.1 K/mm3 (4.4-11.0)
[2019-04-10 04:44] LABS: Anion Gap 6 (5-15); BUN 21 mg/dL (7-18); BUN/Creat Ratio 12.1 RATIO (10-20); Calcium,Total 8.3 mg/dL (8.5-10.1); Chloride 100 mmol/L (98-107); Creatinine, Serum 1.73 mg/dL (0.55-1.02); EST Glomerular Filtration Rate 33 mL/min (>60); Est Glom Filt Rate - Afr Amer 40 mL/min (>60); Estimated Creatinine Clearance 33.97 ml/min; Glucose 364 mg/dL (74-106); Potassium 3.9 mmol/L (3.5-5.1); Sodium Level 136 mmol/L (136-145)
[2019-04-10] MEDS: Sucralfate 1 GM Tablet PO ×2 (06:27→11:23)
[2019-04-10] MEDS: Heparin Injection (Vial) 5,000 UNIT/ML VIAL 5000 UNIT SC (06:27)
[2019-04-10] MEDS: Levothyroxine 50 MCG Tablet PO (06:27)
[2019-04-10] MEDS: Insulin Lispro 100 UNIT/ML INSULN.PEN SC ×2 (06:28→11:26)
[2019-04-10 06:55] LABS: Bedside Glucose 322 mg/dL (70-110)
[2019-04-10] MEDS: Ipratropium/Albuterol Sulfate 3 ML AMPUL.NEB INHALATION ×2 (08:00→10:34)
[2019-04-10] MEDS: Pantoprazole Sodium 40 MG Tablet PO (08:14)
[2019-04-10] MEDS: Aspirin E.C. 81 MG Tablet PO (08:15)
[2019-04-10] MEDS: guaiFENesin 1,200 MG Tablet 1200 MG PO (08:15)
[2019-04-10] MEDS: predniSONE 20 MG Tablet 40 MG PO (08:15)
[2019-04-10] MEDS: LINAGLIPTIN 5 MG TABLET PO (08:18)
[2019-04-10 11:30] LABS: Bedside Glucose 313 mg/dL (70-110)
[2019-04-10] MEDS: hydrALAZINE 20 MG/ML Vial 10 MG IV (11:32)
[2019-04-10] MEDS: 0.9% Saline Lock 10 ML Syringe IV (11:32)
--- NOTE | 2019-04-10 11:40 | PCM.DC ---
- Discharge Diagnoses Current Active Problems: Current Active and Chronic Problems (Last Reviewed 04/09/19 @ 22:59 by Bebo Bravo MD) COPD exacerbation (Acute) You will use the following diet at home:: Calorie/Carbohydrate Controlled (specify 1200, 1400, etc) Discharge Activity: Return to Normal Activity Call your doctor if you observe: Shortness of breath, Dizziness, Fainting spells, Chest pain Allergies/Adverse Reactions: Allergies amlodipine Allergy (Verified 04/09/19 15:52) severe edema atenolol Allergy (Verified 04/09/19 15:52) Swelling ciprofloxacin [From Cipro] Allergy (Verified 04/09/19 15:52) Itching ciprofloxacin HCl [From Cipro] Allergy (Verified 04/09/19 15:52) Itching estradiol [From Estrace] Allergy (Verified 04/09/19 15:52) Swelling meloxicam Allergy (Verified 04/09/19 15:52) Itching niacin Allergy (Verified 04/09/19 15:52) Itching Medications to take at Discharge Albuterol Aerosols [Ventolin Aerosols] 2.5 mg INHALATION Q4H PRN PRN 05/03/15 Omeprazole [Prilosec] 40 mg PO BID 05/03/15 Imipramine HCl [Tofranil] 50 mg PO QHS 05/07/16 Cholecalciferol (Vitamin D3) [Vitamin D3] 6,000 unit PO DAILY 08/31/16 Levothyroxine [Synthroid] 50 mcg PO DAILY 08/31/16 Loratadine [Claritin] 10 mg PO DAILY PRN PRN 08/31/16 Aspirin [Aspir-Low] 81 mg PO QHS 09/17/16 Duloxetine HCl 60 mg PO QHS 04/03/17 albuterol sulfate 90 mcg/actuation aerosol inhaler 2 puff INHALATION Q4H PRN PRN #18 g 02/05/18 Ropinirole HCl [Requip] 3 mg PO DAILY 08/08/18 Sitagliptin Phosphate [Januvia] 100 mg PO DAILY 08/08/18 metFORMIN HCl [Glucophage] 500 mg PO BID 08/08/18 Diltiazem CD [Cardizem CD] 120 mg PO DAILY 04/09/19 Fluticasone Propionate 2 spray INTRANASAL DAILY PRN PRN 04/09/19 Glycopyrrolate/Formoterol Fum [Bevespi Aerosphere Inhaler] 2 puff IH BID 04/09/19 Azithromycin [Zithromax Z-Clarke] 250 mg PO UD #1 box 04/10/19 Prednisone See Taper PO DAILY #30 tab 04/10/19 The following prescriptions were given: Prednisone See Taper PO DAILY #30 tab Transmission Status: Received by [facility] #[facility] Azithromycin [Zithromax Z-Clarke] 250 mg PO UD #1 box Transmission Status: Sent to [facility] #44 Primary Care Physician: Naomi Colunga DO [Primary Care Provider] - Please follow up with your Primary Care Physician in: 3-5 days Test Results: Test results from this visit will be discussed in further detail at your follow-up appointment, if applicable. Please Follow Up With: Jeremias Gonsalez DO When: Follow up as scheduled 02/17/19 Proposed Discharge Date: 04/10/19
--- NOTE | 2019-04-10 12:32 | NURSING ---
pt ambulated in correa and spo2 not below 92% but hr 137-140. pt back to room with tachypnea and mod-severe.
--- NOTE | 2019-04-10 14:10 | DS.PCM_ITS ---
Discharge Date and Diagnosis Date of Admission: 04/09/19 Date of Discharge: 04/10/19 - Primary Discharge Diagnosis Active and Suspected Problems (Last Reviewed 04/09/19 @ 22:59 by Bebo Bravo MD) 1. Exacerbation of COPD 2. Pulmonary hypertension, severe NOY, chronic diastolic dysfunction- noncompliant with CPAP regimen. 3. Hypertensive urgency 3. Acute kidney injury on chronic kidney disease stage III 4. Type 2 diabetes mellitus 5. Morbid obesity 6. Tobacco dependence 7. GERD 8. Depression 9. Restless leg syndrome 10. Hypothyroidism - Secondary Discharge Diagnosis Chronic Problems (Last Reviewed 04/09/19 @ 22:59 by Bebo Bravo MD) DDD (degenerative disc disease), lumbosacral (Chronic) Radiculopathy of lumbosacral region (Chronic) Type 2 diabetes mellitus (Chronic) Nicotine dependence, cigarettes, uncomplicated (Chronic) COPD (chronic obstructive pulmonary disease) (Chronic) Moderate COPD (chronic obstructive pulmonary disease) (Chronic) Continuous tobacco abuse (Chronic) WATTS (dyspnea on exertion) (Chronic) Obstructive sleep apnea (Chronic) CPAP of 15 cm of water. The patient is noncompliant with use. Adult-onset obesity (Chronic) Pulmonary hypertension (Chronic) Stage 1 mild COPD by GOLD classification (Chronic) Hospital Course and Treatment Imaging Results: Diagnostic Data Chest X-Ray 04/09/19 16:45 IMPRESSION: Question right basilar atelectasis. There is no other interval change Electronically Signed: John Davenport DO at 17:25 EST Tel [phone], Service support , Chest CTA 04/09/19 17:53 IMPRESSION: 1. No evidence of pulmonary embolus. 2. No aortic dissection or aneurysm. 3. Nonspecific subcentimeter mediastinal and hilar lymphadenopathy. 4. Bilateral pleural effusions and atelectasis. Electronically Signed: John Davenport DO at 18:40 EST Tel [phone], Service support , Operations: None Procedures: 2-D Echocardiogram Summary of Care Provided: The patient is a 48 year old F admitted 04/09/19 due to shortness of breath. 1. Exacerbation of COPD-negative for influenza. Chest x-ray admission with no acute process. Afebrile. No leukocytosis on admission. D-dimer elevated. CTA completed and showed no evidence of PE. Oxygen stable on room air. Discharged on Z-Clarke and prednisone taper. Patient has had poor compliance with pulmonary follow-up. Recommend follow-up with Dr. Gonsalez within 1 week at discharge. 2. Pulmonary hypertension, severe NOY, chronic diastolic dysfunction- noncompliant with CPAP regimen. Echocardiogram demonstrated an EF of 55%, stage I diastolic dysfunction. Follow-up with pulmonary as noted above. Initiate on Lasix 40 mg daily and 20 mEq of potassium. 3. Hypertensive urgency-improved. Continue home Cardizem regimen. Initiated on Lasix as well as noted above. 3. Acute kidney injury on chronic kidney disease stage III-suspect secondary to IV diuresis during admission. Recommend BMP in 3 days by primary care provider. 4. Type 2 diabetes mellitus-continue home oral regimen. 5. Morbid obesity-encouraged diet and lifestyle modifications. 6. Tobacco dependence-encouraged cessation. 7. GERD-continue PPI. 8. Depression-continue duloxetine regimen. 9. Restless leg syndrome-continue Requip regimen. 10. Hypothyroidism-continue Synthroid regimen. Patient seen and examined prior to discharge. Physical assessment as noted below. Patient is stable for discharge with follow up recommendations as noted above. This patient was seen by HEAVENLY Goodrich under the supervision of Dr. Wilcox. - Physical Exam Vitals/I&O's: Vital Signs Temp Pulse Resp BP Pulse Ox 97.9 F 115 H 20 H 159/98 H 92 04/10/19 09:00 04/10/19 13:30 04/10/19 10:34 04/10/19 13:30 04/10/19 13:00 Oxygen Delivery Method Room Air Weight: 353 lb 9 oz Body Mass Index (BMI) 61.3 Finger Stick Blood Glucose 124 Intake and Output for Last 24 Hours 04/08/19 04/09/19 04/10/19 23:59 23:59 23:59 Intake Total 1240 / 1240 710 / 710 Output Total 1000 / 1000 3100 / 3100 Balance 240 / 240 -2390 / -2390 General: Alert, Oriented x3, Cooperative HEENT: Atraumatic, PERRLA, EOMI, Normocephalic Neck: Supple, No JVD, Negative Carotid Bruits Lungs: Clear to auscultation, Diminished Cardiovascular: Regular Rhythm, Normal S1, Normal S2, No murmurs, Tachycardic Abdomen: Bowel Sounds Present, Soft, Non Tender, Non-Distended, Obese Extremities: No clubbing, No cyanosis, No edema, Capillary Refill Less than 3 Seconds Skin: No rashes, No breakdown Musculoskeletal: No Tenderness to Palpation of Joints or Extremities Neurological: Cranial nerves II-XII grossly intact, Neuro grossly intact Psych/Mental Status: Normal Affect, Appropriate Microbiology Past 72 Hours 04/09/19 17:10 Mucosa - Nose Influenza Types A,B Direct FA (MICHAEL) - Final Laboratory Results 04/09/19 17:15: WBC 10.9, RBC 4.52, Hgb 11.3 L, Hct 36.9 L, MCV 81.6, MCH 25.0 L , MCHC 30.6 L, RDW Std Deviation 43.3, RDW Coeff of Raman 14.7 H, Plt Count 252, MPV 10.4, Immature Gran % (Auto) 0.500, Neut % (Auto) 66.9, Lymph % (Auto) 23.6, [place] % (Auto) 4.8, Eos % (Auto) 3.5, Baso % (Auto) 0.7, Absolute Neuts (auto) 7.3, Absolute Lymphs (auto) 2.58, Nucleated RBC % 0 04/09/19 17:15: D-Dimer Quant (PE/DVT) 2.07 H* 04/09/19 17:15: Sodium 141, Potassium 3.8, Chloride 106, Carbon Dioxide 29.0, Anion Gap 6, BUN 19 H, Creatinine 1.58 H, Estim Creat Clear Calc 37.19, Est GFR (MDRD) Af Amer 45 L, Est GFR (MDRD) Non-Af 37 L, BUN/Creatinine Ratio 12.0, Glucose 196 H, Calcium 8.6, Troponin I 0.021 04/09/19 17:15: Lactic Acid 1.3 04/09/19 17:15: Lipase 181 04/09/19 21:48: POC Glucose 314 H 04/09/19 22:08: Troponin I < 0.015 04/10/19 00:58: Troponin I < 0.015 04/10/19 03:54: WBC 14.1 H, RBC 4.70, Hgb 11.8 L, Hct 37.9, MCV 80.6 L, MCH 25.1 L, MCHC 31.1 L, RDW Std Deviation 42.8, RDW Coeff of Raman 14.7 H, Plt Count 261, MPV 10.3, Immature Gran % (Auto) 0.500, Neut % (Auto) 91.4 H, Lymph % (Auto) 7.0 L, [place] % (Auto) 0.6, Eos % (Auto) 0.1, Baso % (Auto) 0.4, Absolute Neuts (auto) 12.9 H, Absolute Lymphs (auto) 0.99, Nucleated RBC % 0 04/10/19 03:54: Sodium 136, Potassium 3.9, Chloride 100, Carbon Dioxide 30.0, Anion Gap 6, BUN 21 H, Creatinine 1.73 H, Estim Creat Clear Calc 33.97, Est GFR (MDRD) Af Amer 40 L, Est GFR (MDRD) Non-Af 33 L, BUN/Creatinine Ratio 12.1, Glucose 364 H, Calcium 8.3 L 04/10/19 03:54: Troponin I < 0.015 04/10/19 06:26: POC Glucose 322 H 04/10/19 11:25: POC Glucose 313 H Current Medications Acetaminophen (Tylenol) 650 mg PO Q6H PRN PRN PRN Reason: Pain Score 1-3/Temp > 100.7 F Last Admin: 04/10/19 12:27 Dose: 650 mg Documented by: Albuterol Sulfate (Ventolin Aerosols) 2.5 mg INHALATION Q2H PRN PRN PRN Reason: Shortness of Breath/Wheezing Albuterol/Ipratropium (Duoneb) 3 ml INHALATION Q4HWA.RT [facility] Last Admin: 04/10/19 10:34 Dose: 3 ml Documented by: Aspirin (Ecotrin) 81 mg PO DAILY@0800 [facility] Last Admin: 04/10/19 08:15 Dose: 81 mg Documented by: Clonidine (Catapres) 0.1 mg PO Q6H PRN PRN PRN Reason: SBP > 160 Last Admin: 04/10/19 09:39 Dose: 0.1 mg Documented by: Diltiazem HCl (Cardizem Cd) 120 mg PO QHS [facility] Duloxetine HCl (Cymbalta) 60 mg PO QHS [facility] Last Admin: 04/09/19 22:03 Dose: 60 mg Documented by: Fluticasone Propionate (Flonase Nasal [place]) 2 spray NASAL QHS [facility] Glucagon () 1 mg IM .X1 PRN PRN Reason: Hypoglycemia Guaifenesin (Mucinex) 1,200 mg PO BID [facility] Last Admin: 04/10/19 08:15 Dose: 1,200 mg Documented by: Heparin Sodium (Porcine) (Heparin Na) 5,000 unit SC Q8 [facility] Last Admin: 04/10/19 06:27 Dose: 5,000 unit Documented by: Hydralazine HCl (Apresoline Iv) 10 mg IV Q4H PRN PRN PRN Reason: BLOOD PRESSURE Last Admin: 04/10/19 11:32 Dose: 10 mg Documented by: Hydrochlorothiazide (Hctz) 12.5 mg PO QHS [facility] Dextrose (Dextrose 10%-Water) 250 mls @ 999 mls/hr IV .Q16M PRN; Protocol PRN Reason: HYPOGLYCEMIA Imipramine HCl (Tofranil) 50 mg PO QHS [facility] Last Admin: 04/09/19 22:03 Dose: 50 mg Documented by: Insulin Human Lispro (Humalog Kwikpen (Bkc)) 0 unit SC ACHS [facility]; Protocol Last Admin: 04/10/19 11:26 Dose: 6 units Documented by: Levothyroxine Sodium (Synthroid) 50 mcg PO DAILY@0600 [facility] Last Admin: 04/10/19 06:27 Dose: 50 mcg Documented by: Linagliptin (Tradjenta) 5 mg PO DAILY [facility] Last Admin: 04/10/19 08:18 Dose: 5 mg Documented by: Loratadine (Claritin) 10 mg PO QHS [facility] Melatonin (Melatonin) 3 mg PO QHS PRN PRN PRN Reason: INSOMNIA Ondansetron HCl (Zofran) 4 mg IV Q8H PRN PRN PRN Reason: NAUSEA/VOMITING Pantoprazole Sodium (Protonix) 40 mg PO BID [facility] Last Admin: 04/10/19 08:14 Dose: 40 mg Documented by: Potassium Chloride (K-Dur) [facility] Pramipexole Dihydrochloride (Mirapex) 1.5 mg PO QHS [facility] Last Admin: 04/10/19 02:09 Dose: 1.5 mg Documented by: Prednisone () 40 mg PO DAILY@0800 [facility] Last Admin: 04/10/19 08:15 Dose: 40 mg Documented by: Sodium Chloride () 10 - 40 ml IV UD PRN PRN Reason: SALINE FLUSH Last Admin: 04/10/19 11:32 Dose: 10 ml Documented by: Sucralfate (Carafate) 1 gm PO 1HR_ACHS [facility] Last Admin: 04/10/19 11:23 Dose: 1 gm Documented by: Discharge Diet: 1800 Calorie Control Diet, Carb Control Diet Discharge Activity: Return to Normal Activity Call your doctor if you observe: Shortness of breath, Dizziness, Fainting spells, Chest pain Home Medications: Medications to take at Discharge Albuterol Aerosols [Ventolin Aerosols] 2.5 mg INHALATION Q4H PRN PRN 05/03/15 Omeprazole [Prilosec] 40 mg PO BID 05/03/15 Imipramine HCl [Tofranil] 50 mg PO QHS 05/07/16 Cholecalciferol (Vitamin D3) [Vitamin D3] 6,000 unit PO DAILY 08/31/16 Levothyroxine [Synthroid] 50 mcg PO DAILY 08/31/16 Loratadine [Claritin] 10 mg PO DAILY PRN PRN 08/31/16 Aspirin [Aspir-Low] 81 mg PO QHS 09/17/16 Duloxetine HCl 60 mg PO QHS 04/03/17 albuterol sulfate 90 mcg/actuation aerosol inhaler 2 puff INHALATION Q4H PRN PRN #18 g 02/05/18 Ropinirole HCl [Requip] 3 mg PO DAILY 08/08/18 Sitagliptin Phosphate [Januvia] 100 mg PO DAILY 08/08/18 metFORMIN HCl [Glucophage] 500 mg PO BID 08/08/18 Diltiazem CD [Cardizem CD] 120 mg PO DAILY 04/09/19 Fluticasone Propionate 2 spray INTRANASAL DAILY PRN PRN 04/09/19 Glycopyrrolate/Formoterol Fum [Bevespi Aerosphere Inhaler] 2 puff IH BID 04/09/19 Azithromycin [Zithromax Z-Clarke] 250 mg PO UD #1 box 04/10/19 Furosemide [Lasix] 40 mg PO DAILY #30 tab 04/10/19 Potassium Chloride [K-Dur] 20 meq PO DAILY #30 tab 04/10/19 Prednisone See Taper PO DAILY #30 tab 04/10/19 Following Prescrptions Were Given to Patient: Potassium Chloride [K-Dur] 20 meq PO DAILY #30 tab Transmission Status: Sent to [facility] #44 Furosemide [Lasix] 40 mg PO DAILY #30 tab Transmission Status: Sent to [facility] #44 Prednisone See Taper PO DAILY #30 tab Transmission Status: Received by [facility] #44 Azithromycin [Zithromax Z-Clarke] 250 mg PO UD #1 box Transmission Status: Received by [facility] #44 Primary Care Physician: Naomi Colunga DO [Primary Care Provider] - Please follow up with your Primary Care Physician in: 3-5 days Please Follow Up With: Jeremias Gonsalez DO When: 1 Week Disposition: Home Minutes spent on discharge:: 35 Patient Condition:: Stable Medical Necessity - Tobacco Use Smoking Status: Current every day smoker Tobacco Use: Cigarettes Meaningful Use Info Meaningful Use Diagnoses (Choose all that apply): None applicable
--- NOTE | 2019-04-12 13:37 | CASEMGMT ---
[facility] DC PHONE CALL DC DATE: 04.10.2019 DC Disposition: Home Diagnosis on Discharge: COPD LACE/STRATA: 12/08 Message left on voicemail which had name identifier with call back # if pt had questions re: medications, f/u or dc instructions. Juan Diego MORELOSN RN ACM
== END 2019-04-10 15:00 | disposition home or self-care (01) | DRG 191 ==
LOC: ED 16:52 → PCU 20:27
PROVIDERS: Admitting Provider Hospitalist; Emergency Provider Emergency Medicine; Family Provider Internal Medicine; PCP Internal Medicine; Visit Provider Internal Medicine
DX: J44.1 Chronic obstructive pulmonary disease with (acute) exacerbation (principal); N17.9 Acute kidney failure, unspecified; Z68.44 Body mass index [BMI] 60.0-69.9, adult; I16.0 Hypertensive urgency; N18.3 Chronic kidney disease, stage 3 (moderate); E11.22 Type 2 diabetes mellitus with diabetic chronic kidney disease; G47.33 Obstructive sleep apnea (adult) (pediatric); I27.20 Pulmonary hypertension, unspecified; E66.01 Morbid (severe) obesity due to excess calories; K21.9 Gastro-esophageal reflux disease without esophagitis; F32.9 Major depressive disorder, single episode, unspecified; G25.81 Restless legs syndrome; E03.9 Hypothyroidism, unspecified; Z91.19 Patient's noncompliance with other medical treatment and regimen; Z79.84 Long term (current) use of oral hypoglycemic drugs; F17.210 Nicotine dependence, cigarettes, uncomplicated
CPT/HCPCS: 36415; 71045; 71275; 80048; 82962; 83605; 83690; 84484; 85025; 85379; 87040; 87804; 93005; 93306; 94640; 99251; 99285; 99406; J7030; Q9957; Q9967; A4216; C8929; G0463; J1940

== ENCOUNTER → 2019-04-14 16:13 | Outpatient (CLI) | payer OTHER, SELFPAY ==
[2019-04-09 20:05] VITALS: BMI 61.3
[2019-04-14 18:28] LABS: Anion Gap 8 (5-15); BUN 34 mg/dL (7-18); BUN/Creat Ratio 17.2 RATIO (10-20); Calcium,Total 8.8 mg/dL (8.5-10.1); Chloride 98 mmol/L (98-107); Creatinine, Serum 1.98 mg/dL (0.55-1.02); EST Glomerular Filtration Rate 28 mL/min (>60); Est Glom Filt Rate - Afr Amer 34 mL/min (>60); Glucose 292 mg/dL (74-106); Potassium 4.3 mmol/L (3.5-5.1); Sodium Level 135 mmol/L (136-145)
[2019-04-14 18:36] LABS: BNP,B-Type NATRIURETIC PEPTIDE 83.6 pg/mL (0-100)
== END ==
PROVIDERS: Family Provider Internal Medicine; PCP Internal Medicine; Referring Provider Internal Medicine; Visit Provider Internal Medicine
DX: I50.9 Heart failure, unspecified (principal)
CPT/HCPCS: 36415; 80048; 83880

== ENCOUNTER 2019-04-21 14:09 | Emergency (ER) | payer OTHER, SELFPAY ==
[2019-04-21 13:03] VITALS: BMI 61.3
[2019-04-21 14:10] VITALS: BP 163/83; PULSE 116; RESP 18; TEMP 35.6; O2SAT 96
[2019-04-21 14:11] VITALS: BP 163/83; PULSE 116; RESP 18; TEMP 35.6; O2SAT 96; BMI 59.1
--- NOTE | 2019-04-21 14:37 | CT_ITS ---
STUDY: CT BRAIN WITHOUT CONTRAST REASON FOR EXAM: Female, 48 years old. HEADACHE, ELEVATED BP RADIATION DOSAGE (If Supplied By Facility): CTDIvol = ( 44.99 ) mGy, DLP = ( 796.11 ) mGycm TECHNIQUE: Transaxial CT imaging of the brain was performed without administration of intravenous contrast material. Individualized dose optimization techniques were used for this CT. COMPARISON: No relevant priors. FINDINGS: Normal soft tissue structures. Normal calvarium. Normal size ventricles and extra-axial spaces for the patient''s age. Normal white matter tracts of the cerebral hemispheres. Normal basal ganglia and thalami. Normal brainstem. Normal cerebellum. There is no intracranial hemorrhage. There are no findings of an acute ischemic infarction. Small polyp or retention cyst along the posterior inferior aspect of the left maxillary sinus. CT/Brain/Head without Contrast IMPRESSION: Normal unenhanced CT scan of the brain. Electronically Signed: Matt Beckwith, at 15:15 EST , Service support ,
--- NOTE | 2019-04-21 14:42 | ED.VISSUMM ---
- ER Visit Summary Date of Service: 04/21/19 Chief Complaint: Elevated blood pressure History of Present Illness: The patient is a 48 F history of hypertension, COPD, insulin-dependent diabetes, renal insufficiency and sleep apnea. Patient states she saw her pulmonology office today. Her blood pressures been running high and they sent her down the ER to be evaluated. States she is been having headaches but that is not that uncommon for her. Denies any fall or head trauma. She is not on any blood thinners. She is unsure which blood pressure medication she is supposed to be taking. She is taking hydrochlorothiazide. She has a old prescription of Spironolactone and is unsure she supposed to be taking that. It is also listed she supposed to be taking or has been on Cardizem in the past but she is unsure that currently. Physical Examination: Middle-aged morbidly obese female vital signs stable initial blood pressure is 163/83. She does not look septic or toxic. She is in no distress. H EENT exam unremarkable. Pupils are unreactive light. No facial droop. Neck nontender. No JVD. Lungs clear to auscultation bilaterally. Heart tachycardic rate about 115 no murmur. Abdomen morbidly obese but soft nontender. Normal bowel sounds no peritoneal signs. She is moving all 4 extremities. Normal motor strength. Neurologically she is awake alert with no focal motor deficits. Test Results: CT of the brain without contrast no acute abnormality. No bleed. Read by the radiologist. Reviewed by me. Emergency Department Course and Treatment: Patient with acute on chronic hypertension. Currently I think she may have her meds confused and may not be taking them as prescribed. Her exam otherwise is unremarkable. I have her bridge game director on page to see what medication she is supposed to be on for blood pressure. 1 dose of Lopressor in the ER. Currently her pressure is 147/80. She clinically looks well and feels well. I did speak to her bridge game director who wanted her back on lisinopril. She and I went over her medications. She is unsure which ones that she is taken or not I made sure that she will be taken her normal Cardizem, hydrochlorothiazide at night and then the lisinopril 20 mg a day. Any other blood pressure medications to hold at this time. Have her primary care physician on page to ensure that she has close follow-up and they make sure she is taking her blood pressure medications appropriately. Treatment Plan: Follow-up with her primary care physician to go over her blood pressure medications make sure she is taking them correctly. Watch her blood pressures daily if it is running below 120 hold the lisinopril. Return if feeling worse. Disposition: Discharge Impression: Acute on chronic hypertension History of insulin-dependent diabetes History of COPD. History of renal insufficiency This note was generated with [employer] dictation software. It may contain incorrect words, spelling, and punctuation that were not noted in review of the chart prior to signing ED Disposition - Plan for ED Patient: Referrals: Naomi Colunga DO [Primary Care Provider] -
--- NOTE | 2019-04-21 14:48 | NURSING ---
RETURNED [facility]OR[facility] PAGED
[2019-04-21] MEDS: Metoprolol Tartrate 50 MG Tablet PO (14:53)
[2019-04-21] MEDS: hydroCHLOROthiazide 25 MG Tablet PO (14:58)
[2019-04-21 15:17] VITALS: BP 147/80; PULSE 117; RESP 16; O2SAT 99
--- NOTE | 2019-04-21 15:32 | ED.DEP ---
ED Disposition - Plan for ED Patient: Disposition: Home or Assisted Living Instructions: HYPERTENSION, Established, Out of Control Prescriptions: Lisinopril [Zestril] 20 mg PO DAILY #30 tab Prescription Printed Referrals: Naomi Colunga DO [Primary Care Provider] - As soon as possible Additional Instructions: You are taking your blood pressure medications appropriately. For blood pressure currently you should be taking your hydrochlorothiazide at night. Your diltiazem which is also called Cardizem. And we will add lisinopril today 20 mg once a day. No other blood pressure medications at this time. Do not take any other ones that you think you should be. Follow-up with your primary care physician this week and make sure that you on her go over all your medications and those are being taken appropriately. I have her on page and will speak to her today about your follow-up. Watch her blood sugars closely and if it is running too low hold your lisinopril. Too low would be 100 on the systolic blood pressure which is top number.
[2019-04-21 15:47] VITALS: BP 154/84
== END 2019-04-21 15:48 | disposition home or self-care (01) ==
PROVIDERS: Emergency Provider Emergency Medicine; PCP Internal Medicine; Referring Provider Internal Medicine
DX: I11.0 Hypertensive heart disease with heart failure (principal); I50.9 Heart failure, unspecified; E11.9 Type 2 diabetes mellitus without complications; J44.9 Chronic obstructive pulmonary disease, unspecified; N28.9 Disorder of kidney and ureter, unspecified; Z91.14 Patient's other noncompliance with medication regimen; E66.01 Morbid (severe) obesity due to excess calories; G47.30 Sleep apnea, unspecified; M19.90 Unspecified osteoarthritis, unspecified site; Z79.4 Long term (current) use of insulin; Z79.82 Long term (current) use of aspirin; Z79.84 Long term (current) use of oral hypoglycemic drugs; Z79.899 Other long term (current) drug therapy; Z72.0 Tobacco use
CPT/HCPCS: 70450; 99283

== ENCOUNTER → 2019-12-08 16:22 | Outpatient (CLI) | payer OTHER, SELFPAY ==
--- NOTE | 2019-12-08 16:24 | US_ITS ---
STUDY: THYROID ULTRASOUND REASON FOR EXAM: Female, 49 years old. F/U NODULE TECHNIQUE: Ultrasound evaluation of the thyroid was performed with real-time and static hilliard-scale imaging. COMPARISON: 06/04/2016. FINDINGS: RIGHT LOBE: The right lobe of the thyroid gland measures 5.1 x 1.8 x 1.8 cm. There is a homogeneous echotexture. Faint lower pole nodule is noted measuring 8 x 6 x 3 mm similar to previous study. LEFT LOBE: The left lobe of the thyroid gland measures 4.5 x 1.6 x 1.9 cm. There is a homogeneous echotexture. Hypoechoic mid thyroid 2 mm nodule is noted similar to previous study. ISTHMUS: The isthmus measures 3 mm . There is a probable right-sided 1.3 cm node. US/Thyroid IMPRESSION: Stable nodules of the thyroid lobes bilaterally. Electronically Signed: Ranulfo Lewis DO at 23:38 EDT Tel [phone], Service support ,
== END ==
PROVIDERS: PCP Internal Medicine; Referring Provider Internal Medicine; Visit Provider Internal Medicine
DX: E04.1 Nontoxic single thyroid nodule (principal)
CPT/HCPCS: 76536

== ENCOUNTER → 2020-03-24 13:07 | Outpatient (CLI) | payer OTHER, SELFPAY ==
[2020-01-18 10:08] VITALS: BMI 57.9
--- NOTE | 2020-03-25 06:04 | PFT ---
INTRODUCTION: The patient is a 49-year-old female that presents for pulmonary function studies secondary to a diagnosis of COPD. Respiratory therapy reports good patient effort. Bronchodilators were used during testing. INTERPRETATION: Forced expiration spirometry demonstrates no evidence of a large airways obstructive ventilatory defect. There was no significant response to aerosolized bronchodilators. Spirograms are of good quality and plateau normally. Body plethysmography was performed and reveals lung volumes to be within normal limits. Diffusing capacity by single breath CO was reduced at 53% of predicted. When compared to previous pulmonary function studies from December 2017, there has been significant improvement in the patient's FEV1. However, there has been a 22% reduction in DLCO. IMPRESSION: Isolated reduction in diffusing capacity, with changes in PFTs since 2018 as noted above.
== END ==
PROVIDERS: PCP Internal Medicine; Referring Provider Internal Medicine Critical Care Medicine; Visit Provider Internal Medicine Critical Care Medicine
DX: J44.9 Chronic obstructive pulmonary disease, unspecified (principal); F17.210 Nicotine dependence, cigarettes, uncomplicated
CPT/HCPCS: 94060; 94726; 94729

== ENCOUNTER → 2020-05-17 12:17 | Outpatient (CLI) | payer OTHER, SELFPAY ==
[2020-01-18 10:08] VITALS: BMI 57.9
[2020-05-17 12:51] VITALS: PULSE 117; PULSE 119; PULSE 135; PULSE 136; PULSE 141; PULSE 145; PULSE 146; PULSE 148; O2SAT 96; O2SAT 97
--- NOTE | 2020-05-17 12:54 | CPS ---
Patients resting heart rate was 119 sitting in the wheelchair. Pt stated her resting heart rate is usually around 110 or a little more at home. Pt walked a little over 100 ft non-stop until she wanted to take a break at about 1.5 minutes. She started walking again at 3 min and 15 seconds and walked another 100 ft until she wanted to stop completely, at about 4 minutes and 20 seconds, and sit down. Heart rate at that time was 148. Took at least 5 minutes for patients heart rate to recover to 117.
--- NOTE | 2020-05-18 10:02 | PCM.PSN.6M ---
PSN 6 Minute Walk Test - 6 Minute Walk Test 6 Minute Walk Test: 6 Minute Walk Test PSN:6-Minute Walk Test Start: 05/17/20 12:51 Freq: Status: Active Protocol: RESP.6MINW Document 05/17/20 12:51 RAGHAVENDRA (Rec: 05/17/20 12:58 RAGHAVENDRA [id number]) 6 Minute Walk Test Date Performed 05/17/20 Time Performed 12:30 Height 5 ft 4 in Weight: 339 lb Weight in Pounds 339.[address]: Jeremias Gonsalez Assistive device used: None Pre-test Oxygen Delivery Method Room Air Pulse Ox (%) 96 Pulse Rate (60-100 beats/min) 119 H Dyspnea Daniel Scale (0-10) 0 Exertion Daniel Scale (6-20) 6 1st minute Oxygen Delivery Method Room Air Pulse Ox (%) 96 Pulse Rate (60-100 beats/min) 136 H Number of Rests Taken 1 2nd minute Oxygen Delivery Method Room Air Pulse Ox (%) 97 Pulse Rate (60-100 beats/min) 148 H Number of Rests Taken 1 3rd minute Oxygen Delivery Method Room Air Pulse Ox (%) 97 Pulse Rate (60-100 beats/min) 145 H Number of Rests Taken 1 4th minute Oxygen Delivery Method Room Air Pulse Ox (%) 97 Pulse Rate (60-100 beats/min) 146 H Dyspnea Daniel Scale (0-10) 5 Exertion Daniel Scale (6-20) 14 5th minute Oxygen Delivery Method Room Air Pulse Ox (%) 97 Pulse Rate (60-100 beats/min) 141 H 6th minute Oxygen Delivery Method Room Air Pulse Ox (%) 97 Pulse Rate (60-100 beats/min) 135 H Post-test Oxygen Delivery Method Room Air Pulse Ox (%) 97 Pulse Rate (60-100 beats/min) 117 H Full Laps Walked 3 Partial Lap, Number of Tiles Walked 35 Total Distance Walked (ft) 212 05/17/20 12:54 Cardiopulmonary Services by Thea Vallejo Patients resting heart rate was 119 sitting in the wheelchair. Pt stated her resting heart rate is usually around 110 or a little more at home. Pt walked a little over 100 ft non-stop until she wanted to take a break at about 1.5 minutes. She started walking again at 3 min and 15 seconds and walked another 100 ft until she wanted to stop completely, at about 4 minutes and 20 seconds, and sit down. Heart rate at that time was 148. Took at least 5 minutes for patients heart rate to recover to 117. Initialized on 05/17/20 12:54 - END OF NOTE - Interpretation Interpretation: The patient ambulated 212 feet over the course of 6 minutes beginning on room air without assistive devices. Pretesting oxygen saturation was noted to be 96% on room air. With ambulation, the julio césar oxygen saturation was 96%. There was evidence of impaired walk distance along with exertional tachycardia consistent with a musculoskeletal limitation to exercise tolerance. - Recommendations Recommendations: There is no indication for the use of supplemental oxygen at this time.
== END ==
PROVIDERS: PCP Internal Medicine; Referring Provider Internal Medicine Critical Care Medicine; Visit Provider Internal Medicine Critical Care Medicine
DX: J44.9 Chronic obstructive pulmonary disease, unspecified (principal); F17.210 Nicotine dependence, cigarettes, uncomplicated
CPT/HCPCS: 94618

== ENCOUNTER → 2020-07-27 20:43 | Outpatient (CLI) | payer OTHER, SELFPAY | PROVIDERS: PCP Internal Medicine; Visit Provider Nurse Practitioner Acute Care | DX: G47.33 Obstructive sleep apnea (adult) (pediatric) (principal) | CPT/HCPCS: 95811 ==

== ENCOUNTER → 2020-11-20 11:22 | Outpatient (CLI) | payer OTHER, SELFPAY ==
--- NOTE | 2020-11-20 11:27 | US_ITS ---
STUDY: SUPERFICIAL ULTRASOUND - RIGHT FOREARM. REASON FOR EXAM: Female, 50 years old. RT ARM MASS x2 TECHNIQUE: A superficial ultrasound was performed with real-time and static hilliard-scale imaging. COMPARISON: None. FINDINGS: The lateral and medial as well as superior and inferior aspects of the forearm were assessed with ultrasound. No sonographic abnormality is seen. US/Ext Non Vasc Limited/Soft Tiss IMPRESSION: No sonographic abnormality is seen. Electronically Signed: Matt Beckwith MD at 15:42 EDT , Service support ,
== END ==
PROVIDERS: PCP Internal Medicine; Visit Provider Internal Medicine
DX: R22.31 Localized swelling, mass and lump, right upper limb (principal); I47.1 Supraventricular tachycardia
CPT/HCPCS: 76882; 93225; 93226

== ENCOUNTER 2023-12-25 12:54 | Outpatient (RCR) | payer OTHER, MEDICARE, SELFPAY ==
[2023-12-25 13:34] VITALS: BP 122/72; PULSE 111; RESP 18; TEMP 37; BMI 53.1
== END 2024-01-05 23:59 | disposition home or self-care (01) ==
LOC: WC 12:54
PROVIDERS: PCP Internal Medicine; Referring Provider Internal Medicine; Visit Provider Physician Assistant
DX: L89.312 Pressure ulcer of right buttock, stage 2 (principal); N18.6 End stage renal disease; J44.89 Other specified chronic obstructive pulmonary disease; E11.22 Type 2 diabetes mellitus with diabetic chronic kidney disease; Z79.4 Long term (current) use of insulin; E66.9 Obesity, unspecified; G47.33 Obstructive sleep apnea (adult) (pediatric); F17.210 Nicotine dependence, cigarettes, uncomplicated; Z99.2 Dependence on renal dialysis; Z79.84 Long term (current) use of oral hypoglycemic drugs; Z79.52 Long term (current) use of systemic steroids; Z79.899 Other long term (current) drug therapy
CPT/HCPCS: 11042; 99213; G0463

== ENCOUNTER 2024-04-01 12:54 | Outpatient (RCR) | payer OTHER, MEDICARE, SELFPAY ==
[2024-01-06 00:26] VITALS: BP 122/72; PULSE 111; RESP 18; TEMP 37; BMI 53.1
[2024-04-01 13:15] VITALS: BP 142/92; PULSE 110; RESP 18; TEMP 36.3; BMI 52.2
--- NOTE | 2024-04-01 21:42 | HP.PCM_ITS ---
History of Present Illness Date of Service: 04/01/24 Chief Complaint: Right buttock wound History of Wound: Janis Turpin is a 53-year-old female who presents today for evaluation and management of bilateral buttock wounds. She is companied to the appointment today by her daughter who helps with her care. I saw her in December for similar R buttock wound, she was not able to follow- up after her first visit that time. She has noticed some blood-tinged drainage from these areas. Her daughter reports that the area of the L buttock wound initially appeared more red, hard to the touch. She was able to express some bloody, and reportedly purulent drainage a couple days ago and again today; the discomfort in the area seemed to improve after this. They have not noticed any feculent drainage. She denies any nausea, vomiting, fevers, chills. She does have a history of multiple anorectal fistulas. She said she has previously seen a colorectal surgeon for this most recently about 2 to 3 years ago and was recommended surgery but did not proceed with that. Seems to have resolved with conservative measures. To her knowledge she has not had any active fistulas recently. On exam, multiple prior healed fistula sites visible on bilateral buttocks, the draining wound on her L buttock is in close proximity to prior fistula site but does not connect. She spends all of her time either in a wheelchair or a recliner. At her last visit here, I provided an order for Roho cushions. She did obtain Roho cushions for her wheelchair, recliner, and dialysis chair. She is very sedentary secondary to COPD, DDD, and obesity. Her medical history is otherwise significant for type 2 diabetes. She reports that her control is improving now with sugars mostly in the 200s but previously was regularly in the 3-400s. Not sure of most recent A1c. She also has end-stage renal disease on hemodialysis. She does receive palliative care/home health care through [facility]. [facility] Medical History (Updated 04/01/24 @ 21:54 by EDGAR Staton) Nicotine dependence, cigarettes, uncomplicated COPD (chronic obstructive pulmonary disease) Continuous tobacco abuse WATTS (dyspnea on exertion) Obstructive sleep apnea Adult-onset obesity Pulmonary hypertension Stage 1 mild COPD by GOLD classification Home Medications ?Medication ?Instructions ?Recorded ?Last Taken ?Type omeprazole 40 mg capsule,delayed 40 mg PO BID ACID REFLUX 05/03/15 04/08/19 History release cholecalciferol (vitamin D3) 125 6,000 unit PO DAILY SUPPLEMENT 08/31/16 04/08/19 History mcg (5,000 unit) capsule levothyroxine 50 mcg tablet 50 mcg PO DAILY THYROID 08/31/16 04/09/19 History aspirin 81 mg tablet,delayed 81 mg PO Q HEART HEALTH 09/17/16 04/08/19 History release duloxetine 60 mg capsule,delayed 60 mg PO Q MENTAL HEALTH 04/03/17 04/08/19 History release ropinirole 3 mg tablet 3 mg PO DAILY RESTLESS LEG 08/08/18 04/08/19 History hydrochlorothiazide 25 mg tablet 25 mg PO DAILY 04/21/19 Unknown History lisinopril 20 mg tablet 20 mg PO DAILY #30 tabs 04/21/19 Unknown Rx insulin lispro 100 unit/mL 10 unit subcut TID 01/18/20 Unknown History subcutaneous cartridge (Humalog U-100 Insulin) losartan 50 mg tablet 50 mg PO DAILY 01/18/20 Unknown History topiramate 100 mg tablet 100 mg PO BID 01/18/20 Unknown History albuterol sulfate 2.5 mg/3 mL 2.5 mg (3 mL) inhalation Q4H PRN 06/22/20 Unknown Rx (0.083 %) solution for nebulization PRN Shortness Of Breath #180 mL albuterol sulfate 90 mcg/actuation 2 puff inhalation Q4H PRN PRN 06/22/20 Unknown Rx aerosol inhaler Shortness Of Breath #18 grams fluticasone propionate 50 2 spray intranasal DAILY PRN PRN 06/22/20 Unknown Rx mcg/actuation nasal Allergies #15.8 mL spray,suspension glycopyrrolate 9 mcg-formoterol 2 puff inhalation BID #10.7 grams 06/22/20 Unknown Rx 4.8 mcg HFA aerosol inhaler (Bevespi Aerosphere) loratadine 10 mg tablet 10 mg PO DAILY PRN PRN Allergies 06/22/20 Unknown Rx #30 tabs anastrozole 1 mg tablet 1 mg PO DAILY 12/25/23 Unknown History gabapentin 600 mg tablet 600 mg PO BID 12/25/23 Unknown History insulin lispro 100 unit/mL 40 unit subcut DAILY 12/25/23 Unknown History subcutaneous pen linagliptin 5 mg tablet (Tradjenta) 5 mg PO DAILY 12/25/23 Unknown History losartan 100 mg tablet 100 mg PO DAILY 12/25/23 Unknown History metoclopramide HCl 5 mg tablet 5 mg PO TID 12/25/23 Unknown History mupirocin 2 % topical ointment topical TID 12/25/23 Unknown History nifedipine 30 mg tablet,extended 30 mg PO DAILY 12/25/23 Unknown History release nystatin 100,000 unit/gram topical 1 applic topical BID #60 grams 12/25/23 Unknown Rx powder rosuvastatin 20 mg tablet 20 mg PO DAILY 12/25/23 Unknown History miscellaneous medical supply #2 ea 12/27/23 Unknown Rx Allergy/AdvReac Type Severity Reaction Status Date / Time amlodipine Allergy severe Verified 12/25/23 15:42 edema atenolol Allergy Swelling Verified 12/25/23 15:42 ciprofloxacin (From Cipro) Allergy Itching Verified 12/25/23 15:42 ciprofloxacin HCl (From Allergy Itching Verified 12/25/23 15:42 Cipro) estradiol (From Estrace) Allergy Swelling Verified 12/25/23 15:42 meloxicam Allergy Itching Verified 12/25/23 15:42 niacin Allergy Itching Verified 12/25/23 15:42 Social History (Updated 06/22/20 @ 15:14 by Albania Brenner STATIONARY ENGINEER SUPERVISOR, STATIONARY ENGINEER SUPERVISOR-C) Smoking Status: Current every day smoker second hand exposure: Yes alcohol intake: never substance use type: does not use caffeine: No what type of physical activity do you participate in: none Vital Signs Vital Signs Vital Signs: 04/01/24 13:15 Temperature 97.4 F L Temperature Source Temporal Pulse Rate 110 H Respiratory Rate 18 Blood Pressure 142/92 H Blood Pressure Mean 108 Blood Pressure Source Monitor Blood Pressure Position Sitting Blood Pressure Location Right Arm Oxygen Delivery Method Room Air Weight Weight: 295 lb Body Mass Index (BMI) 52.2 Physical Exam Const alert, oriented x3 and no apparent distress General Appearance: cooperative HEENT normocephalic, hearing grossly normal bilaterally and external ears normal Eyes General Eye: normal appearance of both eyes Resp normal respiratory effort, no retractions and no use of accessory muscles Effort and Inspection: able to speak in complete sentences Skin Wounds: wounds noted Wound Narrative: On the left buttock, there is noted superficial skin breakdown with surrounding nonblanchable erythema consistent with shear injury/pressure ulceration stage II. There is associated moderate slough. There is no significant depth to the wound. There does not seem to be any associated fistula or abscess, negative for any surrounding fluctuance/induration/focal swelling. On the right buttock, there is a small, superficial ulceration with a small tunnel at 3 o'clock tracking laterally to a small pocket. I am able to express a small amount of serosanguineous drainage but no purulent or feculent drainage. This tracking is very superficial, there is no tracking deep or medially. There is currently no surrounding erythema, excess warmth, fluctuance, or induration. There is a very nearby old fistula tract, this is indented but not open and with no current tracking/drainage. On the right posterior thigh just distal to the gluteal cleft there is superficial skin breakdown consistent with pressure and shear injury, stage II. There is moderate slough. There is no significant depth or tunneling. No significant drainage. Neuro oriented x3, CN's II-XII intact bilaterally and moves all extremities Speech: speech normal Psych mental status grossly normal, cooperative, affect normal and activity/motor behavior normal Debridement Note Debridement Note Wound debrided: Right buttock Laterality: Right Type of Debridement: Excisional debridement Anesthesia Used: 5% Lidocaine Gel Depth: Down to and including healthy tissue Percentage of wound debrided: 100 Instrument Used: 3mm curette Tissue Removed: slough, devitalized tissue Severity: Limited To Skin Breakdown Amount of bleeding with debridement: Mild Bleeding Controlled with: Pressure Patient tolerated procedure: Patient tolerated procedure well Post-Debridement Measurements and Additional Note: Post-Debridement Measurements/Treatment - Nurse 1 - General Ulcer Assessment Start: 04/01/24 13:15 Freq: Status: Active Protocol: ALIDA Activity Type Activity Date Activity User E-sign Co-sign Detail Recorded Client Recorded Date Recorded By Document 04/01/24 13:15 DS [id number] 04/01/24 13:19 DS 04/01/24 13:15 - Today's Visit Information Type of service Initial Visit Arrival Mode Wheelchair Transfer Assistance Manual Patient Identification Verified (Name & Yes ) Patient Requires Transmission-Based No Precautions Safety Precautions Fall Prevention Height and Weight Height 5 ft 3 in Weight 295 lb Weight in Pounds 295.0 lbs Weight Measurement Method Estimated by Patient Body Mass Index (BMI) 52.2 BMI Classification Obese BSA - Jose 2.28 Vital Signs Temperature (97.8 F-99.1 F) 97.4 F L Temperature Source Temporal Pulse Rate (60-100) 110 H Pulse Location Monitor Respiratory Rate (12-18) 18 Respiratory rate source Observation Oxygen Delivery Method Room Air Blood Pressure (90/60-120/80) 142/92 H Blood Pressure Mean 108 Source Monitor Position Sitting Blood Pressure Location Right Arm History Since Last Visit- (Skip if this is Patient's initial visit) Left Footwear Regular Shoe Right Footwear Regular Shoe Pain Scale: 0-10 Numeric Is Patient Pain Free? Yes buttock -Description Aching -Intensity 6 -Duration (hours) Chronic -Alleviating Factors/Interventions Will continue to monitor, Emotional Support Communication Assessment Preferred language Lao Product Distribution Specialist Required No Able to Read Yes Able to Write Yes Communication Tools None Right Hearing Abillity Normal Left Hearing Abillity Normal Visual Assistive Devices Glasses Teaching Assessment Preferences Verbal,Written, Demonstration Barriers to Learning None Readiness To Learn Excellent Willingness to Engage in Self Management High Activies Readiness to Engage in Self Management High Activities Anxiety Level Calm Cooperation Cooperative Perception Coherent Interest in Health Problem Asks Questions Education Importance Acknowledges Need Does Patient Smoke tobacco or other Yes substances Smoking Status Current every day smoker Is Patient Diabetic Yes Functional Assessment Recent Decline in Ability to Perform Ambulation Assistive Device With Patient No List Device(s) with Patient daughter Culture/Mosque/Consultant Dietitian Cultural/Mosque Needs that may affect No Treatment Plan Teaching: Wound Center ELIMINATING PRESSURE -Person Taught Patient -Teaching Method Discussion -Response to teaching Verbalize Understanding *Welcome to the Wound Center -Person Taught Patient -Teaching Method Discussion -Response to teaching Verbalize Understanding WC - Nurse 1 - General Ulcer Measurement Start: 04/01/24 13:15 Freq: Status: Active Protocol: Activity Type Activity Date Activity User E-sign Co-sign Detail Recorded Client Recorded Date Recorded By Document 04/01/24 13:53 DS [id number] 04/01/24 13:56 DS 04/01/24 13:53 Wound Center Nurse 1 #4 right buttock - inferior -Current Size (cm) - Length 0.5 -Current Size (cm) - Width 0.6 -Current Size (cm) - Depth 0.1 -Total Square Cm 0.30 -Date of Last Picture (Recall this 04/01/24 field) -Photo Taken Yes -Tunneling No -Undermining/Tunneling No -Circular Undermining No -Texture (Anna Marie-wound Skin Appearance) Assessed -Moisture (Anna Marie-wound Skin Appearance) Assessed -Color (Anna Marie-wound Skin Appearance) Assessed -Temperature (Anna Marie-wound Skin No Abnormality Appearance) (Pt Warm) -Tenderness on Palpation (Anna Marie-wound No Skin Appearance) -Ulcer Cleansing Soap and Water -Foul Odor after Cleansing No -Anesthetic Used 5% Lidocaine Gel #6 left buttock -Current Size (cm) - Length 1.5 -Current Size (cm) - Width 0.5 -Current Size (cm) - Depth 0.1 -Total Square Cm 0.75 -Date of Last Picture (Recall this 04/01/24 field) -Photo Taken Yes -Tunneling No -Undermining/Tunneling No -Circular Undermining No -Texture (Anna Marie-wound Skin Appearance) Assessed -Moisture (Anna Marie-wound Skin Appearance) Assessed -Color (Anna Marie-wound Skin Appearance) Assessed -Temperature (Anna Marie-wound Skin No Abnormality Appearance) (Pt Warm) -Tenderness on Palpation (Anna Marie-wound No Skin Appearance) -Ulcer Cleansing Soap and Water -Foul Odor after Cleansing No -Anesthetic Used 5% Lidocaine Gel #5 right thigh postior - superior -Current Size (cm) - Length 0.5 -Current Size (cm) - Width 1.2 -Current Size (cm) - Depth 0.5 -Total Square Cm 0.60 -Date of Last Picture (Recall this 04/01/24 field) -Photo Taken Yes -Tunneling No -Undermining/Tunneling No -Circular Undermining No -Texture (Anna Marie-wound Skin Appearance) Assessed -Moisture (Anna Marie-wound Skin Appearance) Assessed -Color (Anna Marie-wound Skin Appearance) Assessed -Temperature (Anna Marie-wound Skin No Abnormality Appearance) (Pt Warm) -Ulcer Cleansing Soap and Water -Foul Odor after Cleansing No -Anesthetic Used 5% Lidocaine Gel #3 right buttock - superior -Current Size (cm) - Length 0.4 -Current Size (cm) - Width 0.8 -Current Size (cm) - Depth 0.4 -Total Square Cm 0.32 -Date of Last Picture (Recall this 04/01/24 field) -Photo Taken Yes -Tunneling No -Undermining/Tunneling No -Circular Undermining No -Wound Margin Distinct, Outline Attached -Texture (Anna Marie-wound Skin Appearance) Assessed -Moisture (Anna Marie-wound Skin Appearance) Assessed -Color (Anna Marie-wound Skin Appearance) Assessed -Temperature (Anna Marie-wound Skin No Abnormality Appearance) (Pt Warm) -Tenderness on Palpation (Anna Marie-wound No Skin Appearance) -Ulcer Cleansing Soap and Water -Foul Odor after Cleansing No -Anesthetic Used 5% Lidocaine Gel WC - Nurse 2 - General Ulcer CM Notes Start: 04/01/24 13:15 Freq: Status: Active Protocol: Activity Type Activity Date Activity User E-sign Co-sign Detail Recorded Client Recorded Date Recorded By Document 04/01/24 14:10 [id number] 04/01/24 14:21 04/01/24 14:10 Wound Center Nurse 2 #4 right buttock - inferior -Time 14:10 -Correct Patient Yes -Correct Side, Site, Position Yes #6 left buttock -Time 14:10 -Correct Patient Yes -Correct Side, Site, Position Yes -Correct Procedure Yes -Procedure Performed Yes -Type of Procedure Debridement -Clinical Debridement Subcutaneous -Tissue Removed Subcutaneous -Post Debridement (cm) - Length 1.6 -Post Debridement (cm) - Width 0.4 -Post Debridement (cm) - Depth 0.1 -Total Square (Post) (cm) 0.64 -Area of Debridement (cm) - Length 1.6 -Area of Debridement (cm) - Width 0.4 -Total Square (Area) (cm) 0.64 -Tunneling No -Undermining/Tunneling No -Circular Undermining No -Wound/Ulcer Outcome Not Healed -Ulcer Cleansing Rinsed/ Irrigated with Saline -Foul Odor after Cleansing No -Bleeding Controlled with Pressure -Treatment Response Procedure Tolerated Well -Debridement - Subq, 1st 20sq cm No #5 right thigh postior - superior -Time 14:10 -Correct Patient Yes -Correct Side, Site, Position Yes -Correct Procedure Yes -Procedure Performed Yes -Type of Procedure Debridement -Clinical Debridement Subcutaneous -Tissue Removed Subcutaneous -Post Debridement (cm) - Length 0.6 -Post Debridement (cm) - Width 1.3 -Post Debridement (cm) - Depth 0.1 -Total Square (Post) (cm) 0.78 -Area of Debridement (cm) - Length 0.6 -Area of Debridement (cm) - Width 1.3 -Total Square (Area) (cm) 0.78 -Tunneling No -Undermining/Tunneling No -Circular Undermining No -Wound/Ulcer Outcome Not Healed -Ulcer Cleansing Rinsed/ Irrigated with Saline -Foul Odor after Cleansing No -Bioengineered Tissue No -Bleeding Controlled with Pressure -Treatment Response Procedure Tolerated Well -Debridement - Subq, 1st 20sq cm No #3 right buttock - superior -Time 14:10 -Correct Patient Yes -Correct Side, Site, Position Yes -Correct Procedure Yes -Procedure Performed Yes -Type of Procedure Debridement -Clinical Debridement Subcutaneous -Tissue Removed Subcutaneous -Post Debridement (cm) - Length 0.3 -Post Debridement (cm) - Width 0.6 -Post Debridement (cm) - Depth 0.4 -Total Square (Post) (cm) 0.18 -Area of Debridement (cm) - Length 0.3 -Area of Debridement (cm) - Width 0.6 -Total Square (Area) (cm) 0.18 -Tunneling Yes -Tunneling Position (O'clock) 3 -Tunneling Distance (cm) 2.2 -Wound/Ulcer Outcome Not Healed -Ulcer Cleansing Rinsed/ Irrigated with Saline -Foul Odor after Cleansing No -Bioengineered Tissue No -Bleeding Controlled with Pressure -Treatment Response Procedure Tolerated Well -Debridement - Subq, 1st 20sq cm Yes Pain Scale: 0-10 Numeric Is Patient Pain Free? Yes WC - Nurse 3 - General Ulcer D/C NN Start: 04/01/24 13:15 Freq: Status: Active Protocol: Activity Type Activity Date Activity User E-sign Co-sign Detail Recorded Client Recorded Date Recorded By Document 04/01/24 14:37 ML [id number] 04/01/24 14:39 ML 04/01/24 14:37 Wound Care Center Nurse 3 #5 right thigh postior - superior -Ulcer Cleansing Rinsed/ Irrigated with Saline -Primary Dressing Applied Promogran Anne-Marie Matter -Other Dressing excel sap -Promogran Anne-Marie Matter 1 #3 right buttock - superior -Ulcer Cleansing Rinsed/ Irrigated with Saline -Other Dressing packing strip, dakins soaked guaze Pain Scale: 0-10 Numeric Is Patient Pain Free? Yes Additional Wound Wound debrided: L buttock Laterality: Left Wound Grade/Stage: stage II Type of Debridement: Excisional debridement Anesthesia Used: 5% Lidocaine Gel Depth: Down to and including healthy tissue Percentage of wound debrided: 100 Instrument Used: 3mm curette Tissue Removed: slough, devitalized tissue Severity: Limited To Skin Breakdown Amount of bleeding with debridement: None Bleeding Controlled with: Pressure Patient tolerated procedure: Patient tolerated procedure well Additional Wound Wound debrided: Right posterior thigh Laterality: Right Wound Grade/Stage: stage II Type of Debridement: Excisional debridement Anesthesia Used: 5% Lidocaine Gel Depth: Down to and including healthy tissue Percentage of wound debrided: 100 Instrument Used: 3mm curette Tissue Removed: slough, devitalized tissue Severity: Limited To Skin Breakdown Amount of bleeding with debridement: None Patient tolerated procedure: Patient tolerated procedure well Charges/Coding Visit Charges Office Visits / Consults: [id number] OV L4 Est 30min Procedures Integumentary [id number]: [id number] Vivi subq tissue 20 sq cm/< Assessment/Plan Assessment/Plan (1) Pressure ulcer of right buttock, stage 2: CODE(S): L89.312 - Pressure ulcer of right buttock, stage 2 (2) Pressure ulcer of left buttock, stage 2: CODE(S): L89.322 - Pressure ulcer of left buttock, stage 2 (3) Cutaneous abscess of buttock: CODE(S): L02.31 - Cutaneous abscess of buttock (4) Type 2 diabetes mellitus: CODE(S): E11.9 - Type 2 diabetes mellitus without complications (5) Adult-onset obesity: CODE(S): E66.9 - Obesity, unspecified PLAN: Plan For wound care of L buttock and R posterior thigh wounds: Cleanse with soap and water, pat to dry and then apply lightly moistened Anne-Marie to the wound bed and cover with [place] SAP foam border dressing. Change at least once daily or more often as needed to keep clean and dry. For wound care of the R buttock wound: Cleanse with soap and water, pat to dry then pack with 1/4 in nugauze soaked in dakins to the abscess cavity and wound bed. Cover with [place] SAP foam border dressing. If you run out of [place] SAP dressings, cover with ABD pad and gauze, secure with silicone tape. We again discussed the importance of offloading pressure this area to support both healing and recurrence. She did obtain [employer] cushions for her typical seats. She was not able to obtain a hospital bed, she reports insurance denied due to her wounds not being stage III or greater. It will be very important for her to change positions frequently throughout the day, at least every 1-2 hours. She will return to the clinic in 2 weeks or sooner as needed.
--- NOTE | 2024-04-12 11:51 | WC ---
PHOTO 04/01/24 RIGHT BUTTOCK
--- NOTE | 2024-04-12 11:52 | WC ---
PHOTO 04/01/24 LEFT BUTTOCK
== END 2024-04-06 23:59 | disposition home or self-care (01) ==
LOC: WC 12:54
PROVIDERS: PCP Internal Medicine; Referring Provider Internal Medicine; Visit Provider Physician Assistant
DX: L89.312 Pressure ulcer of right buttock, stage 2 (principal); L89.322 Pressure ulcer of left buttock, stage 2; N18.6 End stage renal disease; I27.20 Pulmonary hypertension, unspecified; J44.9 Chronic obstructive pulmonary disease, unspecified; E11.22 Type 2 diabetes mellitus with diabetic chronic kidney disease; Z79.4 Long term (current) use of insulin; L02.31 Cutaneous abscess of buttock; E66.9 Obesity, unspecified; G47.33 Obstructive sleep apnea (adult) (pediatric); Z79.84 Long term (current) use of oral hypoglycemic drugs; Z99.2 Dependence on renal dialysis; Z79.811 Long term (current) use of aromatase inhibitors; Z79.82 Long term (current) use of aspirin; Z79.899 Other long term (current) drug therapy; F17.210 Nicotine dependence, cigarettes, uncomplicated
CPT/HCPCS: 11042; 99213; G0463